=== PATIENT | male | born 1950 | race Two or more races ===

== ENCOUNTER 2016-10-27 03:20 | Inpatient (IN) | payer MEDICARE, OTHER ==
[2016-10-27 03:56] VITALS: BMI 29.2
[2016-10-27 04:38] LABS: BASOPHIL 0.8 % (0-2.0); EOSINOPHIL 3.1 % (0-4.5); MCH 28.9 pg (25.7-33.7); MCHC 31.1 g/dl (32.0-35.9); MEAN CELL VOLUME 93.1 fl (80-96); MEAN PLT VOLUME 8.5 fl (7.5-11.1); NEUTROPHILS 81.4 % (42.8-82.8); PLATELET COUNT 234 K/MM3 (134-434); RDW 18.3 % (11.9-15.9); WHITE BLOOD COUNT 10.2 K/mm3 (4.0-10.0)
[2016-10-27 04:59] LABS: INR 1.28 (0.82-1.09); PROTHROMBIN TIME (PATIENT) 14.1 SEC (9.98-11.88)
[2016-10-27 05:02] LABS: ACTIVATED PTT 44.8 SECONDS (26.9-34.4)
[2016-10-27 05:05] LABS: CALCIUM 8.3 mg/dL (8.5-10.1); CREATININE 6.6 mg/dL (0.7-1.3)
[2016-10-27 05:15] LABS: TROPONIN I 0.02 ng/ml (0.00-0.05)
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
[2016-10-27] MEDS ORDERED: OXYCODONE/APAP 5/325MG COMBO TABLET PO ONE ×2 (06:04→06:30)
[2016-10-27] MEDS ORDERED: OXYCODONE/APAP 5/325MG COMBO TABLET ONE (06:22)
--- NOTE | 2016-10-27 07:25 | PDOC ---
*Physical Exam - Vital Signs Last Vital Signs Temp Pulse Resp BP Pulse Ox 98.1 F 72 18 161/73 97 10/27/16 06:34 10/27/16 06:34 10/27/16 06:34 10/27/16 06:34 10/27/16 06:34 ED Treatment Course - LABORATORY CBC & Chemistry Diagram: 10/27/16 04:19 10/27/16 04:19 - ADDITIONAL ORDERS Additional order review: Laboratory Results 10/27/16 10/27/16 10/27/16 04:19 04:15 04:15 INR 1.28 H D PTT (Actin FS) 44.8 H D Sodium 142 Potassium 5.5 H D Chloride 108 H Carbon Dioxide 24 Anion Gap 10 BUN 52 H D Creatinine 6.6 H D Random Glucose 135 H D Calcium 8.3 L Creatine Kinase 101 Troponin I 0.02 D B-Natriuretic Peptide 52261.70 H 10/27/16 04:19 RBC 3.06 L MCV 93.1 MCHC 31.1 L RDW 18.3 H MPV 8.5 Neutrophils % 81.4 Lymphocytes % 6.7 L Monocytes % 8.0 Eosinophils % 3.1 D Basophils % 0.8 - Medications Given in the ED: ED Medications Discontinued Medications Generic Name Dose Route Start Last Admin Trade Name Freq PRN Reason Stop Dose Admin Oxycodone/Acetaminophen 1 combo 10/27/16 06:04 10/27/16 06:29 Percocet 5/325 - PO 10/27/16 06:05 1 combo ONCE ONE Administration Oxycodone/Acetaminophen 1 combo 10/27/16 06:30 10/27/16 06:30 Percocet 5/325 - PO 10/27/16 06:31 1 combo NOW ONE Administration Medical Decision Making - Medical Decision Making 10/27/16 07:24 Signout received from SHEYLA Brenner. Briefly, this is a 66 year old male with a history of ESRD Tue/Shanell/Sat, s/p recent left hip surgery at [facility] (he is unable to provide any details, but there is a healing incision over the left hip which appears older than one week). He states that he was discharged to [facility] and then sent home. He is now unable to walk because of pain. In addition, he missed HD yesterday because he is unable to walk. -K is 5.5 -BUN is 52 -There are no EKG changes The patient is unable to stand after receiving 2 oxycodone tabs. CXR: No change from prior. Discussed with case management; will obtain PT evaluation for possible dc to [facility]. Discussed with Dr. Campos who will dialyze the patient today if needs admission. 10/27/16 12:08 Patient evaluated by PT and is unable to stand or ambulate. Will obtain hip xray. Surgical records and discharge information requested from [facility]. Accepted by hospitalist. *DC/Admit/Observation/Transfer Diagnosis at time of Disposition: Pain of left hip, Unable to walk, Hyperkalemia, diminished renal excretion, ESRD (end stage renal disease) on dialysis - Discharge Dispostion Condition at time of disposition: Fair Admit: Yes
--- NOTE | 2016-10-27 09:10 | EKG ---
Test Reason : Blood Pressure : / mmHG Vent. Rate : 070 BPM Atrial Rate : 068 BPM P-R Int : 000 ms QRS Dur : 156 ms QT Int : 450 ms P-R-T Axes : 000 025 -10 degrees QTc Int : 486 ms Ventricular-paced rhythm Biventricular pacemaker detected ABNORMAL ECG WHEN COMPARED WITH ECG OF 10-OCT-2016 13:20, PREMATURE VENTRICULAR COMPLEXES ARE NO LONGER PRESENT VENT. RATE HAS DECREASED BY 20 BPM Confirmed by BISHOP FLANNERY, PETRA ([id number]) on 10/27/2016 9:10:49 AM Referred By: Confirmed By:PETRA ALAS MD
[2016-10-27] MEDS ORDERED: EPOETIN ALFA 2,000 UNITS/1 ML VIAL IVPUSH ONE (12:49)
--- NOTE | 2016-10-27 12:59 | CONSULT ---
Consult Consult Specialty:: Nephrology Reason for Consultation:: ESRD - History of Present Illness Chief Complaint: left hip pain History of Present Illness: Pt is a 66 year old male with pmhx of ESRD, CAD, HTN, narcotic dependence, and recent left hip surgery who presents to the ER with left hip pain. He says that he signed out of an outside facility as his pain was not controlled. He missed his HD on Thursday. He denies shortness of breath or palpitations. He denies fevers or chills. He generally is not compliant with medications or dialysis therapy. He was unable to walk to physical therapy and will be admitted for inability to ambulate. He was also found to be hyperkalemic. - History Source History Provided By: Patient, Medical Record - Past Medical History MOBILE TESTER: Yes: CVA Cardio/Vascular: Yes: AFIB (paroxysmal), CAD (CABG, PCI/KAT), CHF, Deep Vein Thrombosis, HTN, Hyperlipdemia Renal/: Yes: Renal Failure, Hemodialysis Psych: Yes: Anxiety Endocrine: Yes: Diabetes Mellitus - Past Surgical History Past Surgical History: Yes: AICD, Amputation (right 3rd finger), CABG (3v CABG and mitral ring 2009 (GUADALUPE->LAD, SVG->LPL, SVG->D1 jump D2.), Stent - Alcohol/Substance Use Hx Alcohol Use: No History of Substance Use: reports: Prescription - Smoking History Smoking history: Never smoked Have you smoked in the past 12 months: No Aproximately how many cigarettes per day: 0 If you are a former smoker, when did you quit?: 2013 - Social History Usual Living Arrangement: With Spouse ADL: Independent History of Recent Travel: No Home Medications - Allergies Allergies/Adverse Reactions: Allergies Allergy/AdvReac Type Severity Reaction Status Date / Time No Known Drug Allergies Allergy Verified 10/10/16 11:49 - Home Medications Home Medications: Ambulatory Orders Aspirin [ASA -] 81 mg PO DAILY tab.chew 09/03/16 Atorvastatin Ca [Lipitor] 20 mg PO HS tablet 09/03/16 Isosorbide Mononitrate [Imdur -] 30 mg PO DAILY tab.sr.24h 09/03/16 Carvedilol [Coreg -] 12.5 mg PO BID #60 tablet 09/20/16 Gabapentin [Neurontin -] 100 mg PO DAILY capsule 12/10/16 Pantoprazole Sodium [Protonix -] 40 mg PO BID tablet.ec 09/20/16 Sevelamer Carbonate [Renvela -] 800 mg PO TIDCM tab 09/20/16 Tamsulosin HCl [Flomax -] 0.4 mg PO DAILY@0830 cap.er.24h 09/20/16 Warfarin Na [Coumadin -] 5 mg PO DAILY@1800 #60 tablet 09/20/16 Tramadol HCl [Ultram -] 50 mg PO Q6H PRN #20 tablet MDD 4 09/26/16 Family Disease History - Family Disease History Family Disease History: Diabetes: Brother, Heart Disease: Brother, Other: Father (Stroke) Review of Systems - Review of Systems Constitutional: reports: Malaise Eyes: reports: No Symptoms HENT: reports: No Symptoms Neck: reports: No Symptoms Cardiovascular: reports: No Symptoms Respiratory: reports: No Symptoms Gastrointestinal: reports: No Symptoms Musculoskeletal: reports: Joint Pain Neurological: reports: No Symptoms Hematology/Lymphatic: reports: No Symptoms Psychiatric: reports: No Symptoms Physical Exam Vital Signs: Vital Signs Temperature 98.1 F 10/27/16 06:34 Pulse Rate 64 10/27/16 11:16 Respiratory Rate 18 10/27/16 11:16 Blood Pressure 152/79 10/27/16 11:16 O2 Sat by Pulse Oximetry (%) 100 10/27/16 11:16 Constitutional: Yes: Calm Eyes: Yes: Conjunctiva Clear HENT: Yes: Atraumatic Cardiovascular: Yes: S1, S2 Respiratory: Yes: CTA Bilaterally Gastrointestinal: Yes: Normal Bowel Sounds, Soft Musculoskeletal: Yes: Other (left hip pain, incision appears clean) Edema: Yes Edema: LLE: Trace, RLE: Trace Neurological: Yes: Oriented Psychiatric: Yes: Oriented Imaging - Results Chest X-ray: Report Reviewed Problem List - Problems (1) Hip pain, left Code(s): M25.552 - PAIN IN LEFT HIP (2) Hyperkalemia, diminished renal excretion Code(s): E87.5 - HYPERKALEMIA (3) BPH (benign prostatic hypertrophy) Code(s): N40.0 - BENIGN PROSTATIC HYPERPLASIA WITHOUT LOWER URINRY TRACT SYMP (4) ESRD (end stage renal disease) on dialysis Code(s): N18.6 - END STAGE RENAL DISEASE Z99.2 - DEPENDENCE ON RENAL DIALYSIS (5) Anemia Code(s): D64.9 - ANEMIA, UNSPECIFIED Qualifiers: Assessment/Plan Current Medications Generic Name Dose Route Start Last Admin Trade Name Mary PRN Reason Stop Dose Admin Epoetin Devin 7,000 units 10/27/16 12:49 Epogen - IVPUSH 10/27/16 12:50 ONCE ONE Impression 1. ESRD 2. CAD 3. HTN 4. narcotic dependence 5. non compliance 6. pleural effusions 7. anemia 8. hip pain - s/p repair 9. DVT 10. hx GI bleed Plan - will arrange for urgent HD today - resume epogen for anemia - resume home meds - monitor bp - will need rehat/pt - discussed with medical team - will follow Dr Campos
--- NOTE | 2016-10-27 13:35 | HP ---
PCP: Gregory Dumont CHIEF COMPLAINT: Left hip pain HISTORY OF PRESENT ILLNESS: This is a 66-year-old man who presented to the ER this morning complaining of left hip pain. He says that he fell at home about one week ago and broke his left hip. He was admitted to [facility] where he underwent surgery. From the hospital, he was discharged to rehab at [facility], but he signed himself out when he was told he had to walk. He says he has been having pain in the left hip and has not been able to walk since the surgery. He did not go to HD on October 25. As per his , he has been walking at home. PAST MEDICAL HISTORY ESRD on HD // CAD Hyperlipidemia Type 2 diabetes mellitus Chronic systolic heart failure Paroxysmal atrial fibrillation Peripheral artery disease Right arm DVT CVA Anemia BPH PAST SURGICAL HISTORY CABG Cardiac stent AICD Left femur fracture repair Amputation of right 3rd finger AV fistula Allergies No Known Drug Allergies Allergy (Verified 10/10/16 11:49) HOME MEDICATIONS 3 Medication Instructions Recorded Aspirin [ASA -] 81 mg PO DAILY tab.chew 09/03/16 Atorvastatin Ca [Lipitor] 20 mg PO HS tablet 09/03/16 Isosorbide Mononitrate [Imdur -] 30 mg PO DAILY tab.sr.24h 09/03/16 Carvedilol [Coreg -] 12.5 mg PO BID #60 tablet 09/20/16 Gabapentin [Neurontin -] 100 mg PO DAILY capsule 09/20/16 Pantoprazole Sodium [Protonix -] 40 mg PO BID tablet.ec 09/20/16 Sevelamer Carbonate [Renvela -] 800 mg PO TIDCM tab 09/20/16 Tamsulosin HCl [Flomax -] 0.4 mg PO DAILY@0830 cap.er.24h 09/20/16 Warfarin Na [Coumadin -] 5 mg PO DAILY@1800 #60 tablet 09/20/16 Tramadol HCl [Ultram -] 50 mg PO Q6H PRN #20 tablet MDD 4 09/26/16 Social History: Smoking: Quit in 2013 Alcohol: None Drugs: None Recent Travel: No Family History Father - CVA Brother - DM, CAD REVIEW OF SYSTEMS CONSTITUTIONAL: Absent: fever, chills, diaphoresis, generalized weakness, malaise, loss of appetite, weight change HEENT: Absent: rhinorrhea, nasal congestion, throat pain, throat swelling, difficulty swallowing, mouth swelling, ear pain, eye pain, visual changes CARDIOVASCULAR: Absent: chest pain, syncope, palpitations, lightheadedness, peripheral edema RESPIRATORY: Absent: cough, shortness of breath, dyspnea with exertion, orthopnea, wheezing, stridor, hemoptysis GASTROINTESTINAL: Absent: abdominal pain, abdominal distension, nausea, vomiting , diarrhea, constipation, melena, hematochezia GENITOURINARY: Absent: dysuria, frequency, urgency, hesitancy, hematuria, flank pain MUSCULOSKELETAL: Present: left hip pain. Absent: back pain, neck pain SKIN: Absent: rash, itching, pallor HEMATOLOGIC/IMMUNOLOGIC: Absent: easy bleeding, easy bruising, lymphadenopathy, frequent infections ENDOCRINE: Absent: unexplained weight gain, unexplained weight loss, heat intolerance, cold intolerance NEUROLOGIC: Absent: headache, focal weakness, paresthesias, dizziness, seizure, mental status changes, bladder or bowel incontinence PSYCHIATRIC: Absent: anxiety, depression, suicidal or homicidal ideation, hallucinations. PHYSICAL EXAMINATION Vital Signs Period Temp Pulse Resp BP Sys/Hinds Pulse Ox Last 24 Hr 97.7 F-98.1 F 64-89 18-20 152-179/73-86 97-100 GENERAL: Awake, alert, and fully oriented, in no acute distress. HEAD: Normal with no signs of trauma. EYES: Pupils equal, round and reactive to light, extraocular movements intact, sclerae anicteric, conjunctivae clear. EARS, NOSE, THROAT: Ears normal, nares patent, oropharynx clear without exudates. Moist mucous membranes. NECK: Normal range of motion, supple without lymphadenopathy, JVD, or masses. LUNGS: Breath sounds equal, clear to auscultation bilaterally. No wheezes, and no crackles. No accessory muscle use. HEART: Regular rate and rhythm, normal S1 and S2 without murmur, rub or gallop. ABDOMEN: Soft, nontender, not distended, normoactive bowel sounds, no guarding, no rebound, no masses. No hepatomegaly or splenomegaly. MUSCULOSKELETAL: Decreased ROM left hip. Swelling anterior to left hip incision. No CVA tenderness. UPPER EXTREMITIES: 2+ pulses, warm, well-perfused. No cyanosis. No clubbing. Cap refill <2 seconds. No peripheral edema. LOWER EXTREMITIES: 1+ pulses, warm, well-perfused. No calf tenderness. No peripheral edema. NEUROLOGICAL: Cranial nerves II-XII intact. Normal speech. Unable to ambulate. PSYCHIATRIC: Cooperative. Good eye contact. Appropriate mood and affect. SKIN: Warm, dry, normal turgor, no rashes or lesions noted. Laboratory Tests 10/27/16 10/27/16 10/27/16 04:15 04:15 04:19 WBC 10.2 H D RBC 3.06 L Hgb 8.9 L Hct 28.5 L MCV 93.1 MCHC 31.1 L RDW 18.3 H Plt Count 234 D MPV 8.5 Neutrophils % 81.4 Lymphocytes % 6.7 L Monocytes % 8.0 Eosinophils % 3.1 D Basophils % 0.8 INR 1.28 H D PTT (Actin FS) 44.8 H D Sodium Potassium Chloride Carbon Dioxide Anion Gap BUN Creatinine Random Glucose Calcium Creatine Kinase 101 Troponin I 0.02 D B-Natriuretic Peptide 32887.70 H 10/27/16 04:19 WBC RBC Hgb Hct MCV MCHC RDW Plt Count MPV Neutrophils % Lymphocytes % Monocytes % Eosinophils % Basophils % INR PTT (Actin FS) Sodium 142 Potassium 5.5 H D Chloride 108 H Carbon Dioxide 24 Anion Gap 10 BUN 52 H D Creatinine 6.6 H D Random Glucose 135 H D Calcium 8.3 L Creatine Kinase Troponin I B-Natriuretic Peptide EKG: Ventricular paced at 70. Chest x-ray: Pacemaker. Right permacath. Sternotomy wires and clips. Left pleural thickening. Left lung volume loss. No change from 10/10/16. X-rays left hip/pelvis: Left hip hemiarthroplasty. Stents in left medial thigh and right medial thigh. Vascular calcifications in pelvis. Osteopenia. Questionable cortical irregularity of left inferior pubic ramus. ASSESSMENT/PLAN: This is a 66-year-old man with a history of ESRD on HD, CAD, hyperlipidemia, type 2 DM, chronic systolic heart failure, PAF, PAD, RUE DVT, CVA, anemia and BPH who came to the ER because of pain in his left hip and inability to ambulate x 1 week, since he had surgery to repair a left hip fracture. He missed his last HD session 2 days ago. He was found to have BUN 52, creatinine 6.6, potassium 5.5. He is being admitted now for further evaluation and treatment of an emergent condition. 1. Left hip pain - X-rays show hemiarthroplasty in place, ? fracture of left inferior pubic ramus - Orthopedic surgery consult - Will obtain records from [facility] 2. ESRD on HD - Last HD was 10/23 - Continue Renvela - Nephrology consult 3. CAD, history of CABG and stent - Continue aspirin, Coreg, Lipitor, Imdur 4. Hyperlipidemia - Continue Lipitor 5. Type 2 diabetes mellitus - Fingersticks with Novolog sliding scale 6. Chronic systolic heart failure - Stable 7. Paroxysmal atrial fibrillation 8. Peripheral artery disease 9. Right arm DVT - Continue Coumadin 10. History of CVA 11. Anemia secondary to CKD 12. BPH - Continue Flomax Problem List - Problem (1) History of hemiarthroplasty of left hip Code(s): Z96.642 - PRESENCE OF LEFT ARTIFICIAL HIP JOINT (2) CAD (coronary artery disease) Code(s): I25.10 - ATHSCL HEART DISEASE OF [place] CORONARY ARTERY W/O ANG PCTRS Visit type - Emergency Visit Emergency Visit: Yes ED Registration Date: 10/27/16 Care time: The patient presented to the Emergency Department on the above date and was hospitalized for further evaluation of their emergent condition. - New Patient This patient is new to me today: Yes Date on this admission: 10/27/16 - Critical Care Critical Care patient: No
[2016-10-27] MEDS ORDERED: ONDANSETRON 4 MG/2 ML VIAL IVPB PRN (13:52)
[2016-10-27] MEDS ORDERED: ACETAMINOPHEN 325 MG TABLET (FP) PO PRN (13:52)
[2016-10-27] MEDS ORDERED: EPOETIN ALFA 4,000 UNIT, EPOETIN ALFA 3,000 UNIT IVPUSH ONE (14:00)
[2016-10-27] MEDS ORDERED: hydrALAZINE HCL 10 MG TABLET PO ONE (14:20)
[2016-10-27] MEDS ORDERED: morphine CARPU-JECT 2 MG/1 ML DISP.SYRIN ONE (14:23)
[2016-10-27] MEDS: morphine CARPU-JECT 2 MG/1 ML DISP.SYRIN IVPUSH PRN (14:39)
[2016-10-27] MEDS: WARFARIN NA 5 MG TABLET (UD) PO SCH ×3 (17:51→23:03)
[2016-10-27] MEDS: SEVELAMER CARBONATE 800 MG TAB (FP) PO SCH ×2 (17:51→18:03)
[2016-10-27] MEDS: CARVEDILOL 12.5 MG TABLET (FP) PO SCH (23:02)
[2016-10-27] MEDS: ATORVASTATIN CA 20 MG TABLET (FP) PO SCH (23:02)
[2016-10-27] MEDS: PANTOPRAZOLE 40 MG TABLET (FP) PO SCH (23:02)
[2016-10-28] MEDS: morphine CARPU-JECT 2 MG/1 ML DISP.SYRIN IVPUSH PRN ×2 (01:59→06:06)
[2016-10-28] MEDS: traMADol HCL 50 MG TABLET PO PRN ×3 (03:47→18:04)
[2016-10-28 07:56] LABS: INR 1.23 (0.82-1.09); PROTHROMBIN TIME (PATIENT) 13.6 SEC (9.98-11.88)
[2016-10-28] MEDS: SEVELAMER CARBONATE 800 MG TAB (FP) PO SCH ×3 (08:05→18:05)
[2016-10-28] MEDS: TAMSULOSIN HCL 0.4 MG CAP.ER.24H (FP) PO SCH (08:05)
[2016-10-28 08:10] LABS: MCH 29.8 pg (25.7-33.7); MCHC 32.3 g/dl (32.0-35.9); MEAN CELL VOLUME 92.3 fl (80-96); MEAN PLT VOLUME 8.6 fl (7.5-11.1); PLATELET COUNT 211 K/MM3 (134-434); RDW 17.8 % (11.9-15.9)
[2016-10-28 08:19] LABS: CALCIUM 8.1 mg/dL (8.5-10.1); CREATININE 4.2 mg/dL (0.7-1.3)
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
[2016-10-28] MEDS: ISOSORBIDE MONONITRATE 30 MG TAB.SR.24H (FP) PO SCH (10:52)
[2016-10-28] MEDS: PANTOPRAZOLE 40 MG TABLET (FP) PO SCH ×2 (10:52→22:42)
[2016-10-28] MEDS: CARVEDILOL 12.5 MG TABLET (FP) PO SCH ×2 (10:53→22:42)
[2016-10-28] MEDS: GABAPENTIN 100 MG CAPSULE (FP) PO SCH (10:53)
[2016-10-28] MEDS: ASPIRIN 81 MG CHEWABLE TABLETS PO SCH (10:55)
--- NOTE | 2016-10-28 12:38 | PN ---
Progress Note, Physician History of Present Illness: Pt seen and examined at bedside. He is more awake and alert than he was yesterday. - Current Medication List Current Medications: Active Medications Acetaminophen (Tylenol -) 650 mg PO Q4H PRN PRN Reason: FEVER OR PAIN Last Admin: 10/28/16 08:04 Dose: 650 mg Aspirin (Asa -) 81 mg PO DAILY [facility] Last Admin: 10/28/16 10:55 Dose: 81 mg Atorvastatin Calcium (Lipitor -) 20 mg PO HS [facility] Last Admin: 10/27/16 23:02 Dose: 20 mg Carvedilol (Coreg -) 12.5 mg PO BID [facility] Last Admin: 10/28/16 10:53 Dose: 12.5 mg Gabapentin (Neurontin -) 100 mg PO DAILY [facility] Last Admin: 10/28/16 10:53 Dose: 100 mg Isosorbide Mononitrate (Imdur -) 30 mg PO DAILY [facility] Last Admin: 10/28/16 10:52 Dose: 30 mg Morphine Sulfate (Morphine Injection -) 1 mg IVPUSH Q4H PRN PRN Reason: SEVERE PAIN Last Admin: 10/28/16 06:06 Dose: 1 mg Ondansetron HCl (Zofran Injection) 4 mg IVPB Q6H PRN PRN Reason: NAUSEA Pantoprazole Sodium (Protonix -) 40 mg PO BID [facility] Last Admin: 10/28/16 10:52 Dose: 40 mg Sevelamer Carbonate (Renvela -) 800 mg PO TIDCM [facility] Last Admin: 10/28/16 08:05 Dose: 800 mg Silver Sulfadiazine (Silvadene -) 1 applic TP DAILY [facility] Tamsulosin HCl (Flomax -) 0.4 mg PO DAILY@0830 [facility] Last Admin: 10/28/16 08:05 Dose: 0.4 mg Tramadol HCl (Ultram -) 50 mg PO Q6H PRN PRN Reason: PAIN Last Admin: 10/28/16 10:52 Dose: 50 mg Warfarin Sodium (Coumadin -) 5 mg PO DAILY@1800 [facility] Last Admin: 10/27/16 23:03 Dose: 5 mg - Objective Vital Signs: Vital Signs Temperature 98.7 F 10/28/16 02:00 Pulse Rate 62 10/28/16 02:00 Respiratory Rate 22 10/28/16 02:00 Blood Pressure 131/67 10/28/16 02:00 O2 Sat by Pulse Oximetry (%) 100 10/27/16 11:16 Constitutional: Yes: Calm Eyes: Yes: Conjunctiva Clear HENT: Yes: Atraumatic Neck: Yes: Supple Cardiovascular: Yes: S1, S2 Respiratory: Yes: CTA Bilaterally Gastrointestinal: Yes: Soft Genitourinary: Yes: Incontinence Musculoskeletal: Yes: Other (hip pain) Edema: No Neurological: Yes: Oriented Psychiatric: Yes: Oriented Labs: CBC, BMP 10/28/16 06:25 10/28/16 06:25 INR, PTT INR 1.23 (0.82-1.09) H 10/28/16 06:25 Problem List - Problems (1) Hip pain, left Code(s): M25.552 - PAIN IN LEFT HIP (2) Hyperkalemia, diminished renal excretion Code(s): E87.5 - HYPERKALEMIA (3) BPH (benign prostatic hypertrophy) Code(s): N40.0 - BENIGN PROSTATIC HYPERPLASIA WITHOUT LOWER URINRY TRACT SYMP (4) ESRD (end stage renal disease) on dialysis Code(s): N18.6 - END STAGE RENAL DISEASE Z99.2 - DEPENDENCE ON RENAL DIALYSIS (5) Anemia Code(s): D64.9 - ANEMIA, UNSPECIFIED Qualifiers: Assessment/Plan Current Medications Generic Name Dose Route Start Last Admin Trade Name Freq PRN Reason Stop Dose Admin Acetaminophen 650 mg 10/27/16 13:52 10/28/16 08:04 Tylenol - PO 650 mg Q4H PRN Administration FEVER OR PAIN Aspirin 81 mg 10/28/16 10:00 10/28/16 10:55 Asa - PO 81 mg DAILY [facility] Administration Atorvastatin Calcium 20 mg 10/27/16 22:00 10/27/16 23:02 Lipitor - PO 20 mg HS [facility] Administration Carvedilol 12.5 mg 10/27/16 22:00 10/28/16 10:53 Coreg - PO 12.5 mg BID [facility] Administration Gabapentin 100 mg 10/28/16 10:00 10/28/16 10:53 Neurontin - PO 100 mg DAILY [facility] Administration Isosorbide Mononitrate 30 mg 10/28/16 10:00 10/28/16 10:52 Imdur - PO 30 mg DAILY [facility] Administration Morphine Sulfate 1 mg 10/27/16 13:52 10/28/16 06:06 Morphine Injection - IVPUSH 1 mg Q4H PRN Administration SEVERE PAIN Ondansetron HCl 4 mg 10/27/16 13:52 Zofran Injection IVPB Q6H PRN NAUSEA Pantoprazole Sodium 40 mg 10/27/16 22:00 10/28/16 10:52 Protonix - PO 40 mg BID [facility] Administration Sevelamer Carbonate 800 mg 10/27/16 17:30 10/28/16 08:05 Renvela - PO 800 mg TIDCM [facility] Administration Silver Sulfadiazine 1 applic 10/28/16 10:00 Silvadene - TP DAILY [facility] Tamsulosin HCl 0.4 mg 10/28/16 08:30 10/28/16 08:05 Flomax - PO 0.4 mg DAILY@0830 [facility] Administration Tramadol HCl 50 mg 10/27/16 13:49 10/28/16 10:52 Ultram - PO 50 mg Q6H PRN Administration PAIN Warfarin Sodium 5 mg 10/27/16 18:00 10/27/16 23:03 Coumadin - PO 5 mg DAILY@1800 [facility] Administration Impression 1. ESRD 2. CAD 3. HTN 4. narcotic dependence 5. non compliance 6. pleural effusions 7. anemia 8. hip pain - s/p repair 9. DVT 10. hx GI bleed Plan - will arrange for HD in am - cont epogen for anemia - ortho follow up - resume home meds - monitor bp - will need rehat/pt - compliance remains a problem - will follow Dr Campos
[2016-10-28] MEDS: SILVER SULFADIAZINE 1% TOP CREAM 50 GM JAR TP SCH (12:49)
--- NOTE | 2016-10-28 13:37 | CONS ---
DATE OF CONSULTATION: HISTORY: The patient is a 66-year-old male end-stage renal dialysis patient well known to me. I did a left hemiarthroplasty for displaced femoral neck fracture at [facility] approximately 2 weeks ago. The patient did very well and went to a assisted for rehabilitation. The patient signed himself out AMA as he did not want to stay there and just wanted to be home in bed and was not interested in rehabilitation. The patient presented back to the hospital complaining of some hip pain. X-ray by report from the radiologist is suspicious of possible left inferior pubic ramus fracture. PHYSICAL EXAMINATION: Skin: His incision is well healed. No drainage. Extremities: Calf has no erythema, no swelling. Calf is soft, nontender, neurovascularly intact. Good motion hip, knee, ankles, and toes. Musculoskeletal: No point tenderness over his pubis, ilium, ischium, SI joint, sacrum, greater trochanter with good motion hip, knee, ankles, and toes. Neurovascularly intact. DIAGNOSTIC DATA: X-rays, which I reviewed show well-seated left cemented hemiarthroplasty. I do not appreciate the pubic ramus fracture that the radiologist is reading. IMPRESSION: Cemented left hemiarthroplasty, questionable pelvic ramus fracture, although I am less suspicious of that. The radiologist is suspicious of that. PLAN: In either case whether the patient has a pubic ramus fracture or not, the treatment is the same. The patient can be weightbearing as tolerated with hip precautions. No acute pathology is going on at this time. The patient can be discharged from the hospital once medically cleared and his dialysis is arranged as an outpatient. ALEJANDRA DAVE M.D. [id number]
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
[2016-10-28] MEDS: WARFARIN NA 5 MG TABLET (UD) PO SCH (18:04)
[2016-10-28] MEDS: ATORVASTATIN CA 20 MG TABLET (FP) PO SCH (22:42)
[2016-10-29] MEDS: traMADol HCL 50 MG TABLET PO PRN (03:53)
[2016-10-29] MEDS: SEVELAMER CARBONATE 800 MG TAB (FP) PO SCH ×2 (08:09→11:14)
[2016-10-29] MEDS: TAMSULOSIN HCL 0.4 MG CAP.ER.24H (FP) PO SCH (08:10)
[2016-10-29] MEDS ORDERED: EPOETIN ALFA 2,000 UNITS/1 ML VIAL IVPUSH ONE (09:00)
[2016-10-29] MEDS: ASPIRIN 81 MG CHEWABLE TABLETS PO SCH (10:46)
[2016-10-29] MEDS: SILVER SULFADIAZINE 1% TOP CREAM 50 GM JAR TP SCH (10:46)
[2016-10-29] MEDS: ISOSORBIDE MONONITRATE 30 MG TAB.SR.24H (FP) PO SCH (10:46)
[2016-10-29] MEDS: PANTOPRAZOLE 40 MG TABLET (FP) PO SCH (10:46)
[2016-10-29] MEDS: CARVEDILOL 12.5 MG TABLET (FP) PO SCH (10:46)
[2016-10-29] MEDS: GABAPENTIN 100 MG CAPSULE (FP) PO SCH (10:46)
[2016-10-29 10:54] VITALS: BP 152/62; PULSE 61
--- NOTE | 2016-10-29 12:07 | PN ---
Progress Note, Physician History of Present Illness: Pt seen and examined at bedside. He says he wants to go home. He is awake and alert. - Current Medication List Current Medications: Active Medications Acetaminophen (Tylenol -) 650 mg PO Q4H PRN PRN Reason: FEVER OR PAIN Last Admin: 10/28/16 08:04 Dose: 650 mg Aspirin (Asa -) 81 mg PO DAILY [facility] Last Admin: 10/29/16 10:46 Dose: 81 mg Atorvastatin Calcium (Lipitor -) 20 mg PO HS [facility] Last Admin: 10/28/16 22:42 Dose: 20 mg Carvedilol (Coreg -) 12.5 mg PO BID [facility] Last Admin: 10/29/16 10:46 Dose: 12.5 mg Gabapentin (Neurontin -) 100 mg PO DAILY [facility] Last Admin: 10/29/16 10:46 Dose: 100 mg Isosorbide Mononitrate (Imdur -) 30 mg PO DAILY [facility] Last Admin: 10/29/16 10:46 Dose: 30 mg Pantoprazole Sodium (Protonix -) 40 mg PO BID [facility] Last Admin: 10/29/16 10:46 Dose: 40 mg Sevelamer Carbonate (Renvela -) 800 mg PO TIDCM [facility] Last Admin: 10/29/16 11:14 Dose: 800 mg Silver Sulfadiazine (Silvadene -) 1 applic TP DAILY [facility] Last Admin: 10/29/16 10:46 Dose: 1 applic Tamsulosin HCl (Flomax -) 0.4 mg PO DAILY@0830 [facility] Last Admin: 10/29/16 08:10 Dose: Not Given Tramadol HCl (Ultram -) 50 mg PO Q6H PRN PRN Reason: PAIN Last Admin: 10/29/16 03:53 Dose: 50 mg Warfarin Sodium (Coumadin -) 5 mg PO DAILY@1800 [facility] Last Admin: 10/28/16 18:04 Dose: 5 mg - Objective Vital Signs: Vital Signs Temperature 97.5 F L 10/29/16 06:45 Pulse Rate 61 10/29/16 10:10 Respiratory Rate 18 10/29/16 10:10 Blood Pressure 152/62 10/29/16 10:10 O2 Sat by Pulse Oximetry (%) 96 10/28/16 21:00 Constitutional: Yes: Calm Eyes: Yes: Conjunctiva Clear HENT: Yes: Atraumatic Cardiovascular: Yes: S1, S2 Respiratory: Yes: CTA Bilaterally Gastrointestinal: Yes: Soft Genitourinary: Yes: WNL Musculoskeletal: Yes: Other (hip pain) Edema: Yes Edema: LUE: 1+, RUE: 1+ Neurological: Yes: Oriented Psychiatric: Yes: Oriented Labs: CBC, BMP 10/28/16 06:25 10/28/16 06:25 INR, PTT INR 1.23 (0.82-1.09) H 10/28/16 06:25 Problem List - Problems (1) Hip pain, left Code(s): M25.552 - PAIN IN LEFT HIP (2) Hyperkalemia, diminished renal excretion Code(s): E87.5 - HYPERKALEMIA (3) BPH (benign prostatic hypertrophy) Code(s): N40.0 - BENIGN PROSTATIC HYPERPLASIA WITHOUT LOWER URINRY TRACT SYMP (4) ESRD (end stage renal disease) on dialysis Code(s): N18.6 - END STAGE RENAL DISEASE Z99.2 - DEPENDENCE ON RENAL DIALYSIS (5) Anemia Code(s): D64.9 - ANEMIA, UNSPECIFIED Qualifiers: Assessment/Plan Current Medications Generic Name Dose Route Start Last Admin Trade Name Freq PRN Reason Stop Dose Admin Acetaminophen 650 mg 10/27/16 13:52 10/28/16 08:04 Tylenol - PO 650 mg Q4H PRN Administration FEVER OR PAIN Aspirin 81 mg 10/28/16 10:00 10/29/16 10:46 Asa - PO 81 mg DAILY [facility] Administration Atorvastatin Calcium 20 mg 10/27/16 22:00 10/28/16 22:42 Lipitor - PO 20 mg HS [facility] Administration Carvedilol 12.5 mg 10/27/16 22:00 10/29/16 10:46 Coreg - PO 12.5 mg BID [facility] Administration Gabapentin 100 mg 10/28/16 10:00 10/29/16 10:46 Neurontin - PO 100 mg DAILY [facility] Administration Isosorbide Mononitrate 30 mg 10/28/16 10:00 10/29/16 10:46 Imdur - PO 30 mg DAILY [facility] Administration Pantoprazole Sodium 40 mg 10/27/16 22:00 10/29/16 10:46 Protonix - PO 40 mg BID [facility] Administration Sevelamer Carbonate 800 mg 10/27/16 17:30 10/29/16 11:14 Renvela - PO 800 mg TIDCM [facility] Administration Silver Sulfadiazine 1 applic 10/28/16 10:00 10/29/16 10:46 Silvadene - TP 1 applic DAILY [facility] Administration Tamsulosin HCl 0.4 mg 10/28/16 08:30 10/29/16 08:10 Flomax - PO Not Given DAILY@0830 [facility] Tramadol HCl 50 mg 10/27/16 13:49 10/29/16 03:53 Ultram - PO 50 mg Q6H PRN Administration PAIN Warfarin Sodium 5 mg 10/27/16 18:00 10/28/16 18:04 Coumadin - PO 5 mg DAILY@1800 [facility] Administration Impression 1. ESRD 2. CAD 3. HTN 4. narcotic dependence 5. non compliance 6. pleural effusions 7. anemia 8. hip pain - s/p repair 9. DVT 10. hx GI bleed Plan - pt tolerated HD today - discussed compliance with him at length - cont current meds - cont epogen for anemia - monitor bp - will need rehat/pt - compliance remains a problem - will follow Dr Campos
[2016-10-29 13:45] VITALS: TEMP 98.1
[2016-10-30 00:06] LABS: HEP B SURFACE AB Non Reactive (.)
--- NOTE | 2016-11-07 19:13 | DS ---
Physical Exam: SUBJECTIVE: Patient seen and examined. OBJECTIVE: Vital Signs Temperature 98.1 F 10/29/16 10:00 Pulse Rate 61 10/29/16 10:10 Respiratory Rate 18 10/29/16 10:10 Blood Pressure 152/62 10/29/16 10:10 O2 Sat by Pulse Oximetry (%) 96 10/29/16 09:00 PHYSICAL EXAM GENERAL: The patient is awake, alert, and fully oriented, in no acute distress. Cachectic. HEAD: Normal with no signs of trauma. EYES: PERRL, extraocular movements intact, sclera anicteric, conjunctiva clear. No ptosis. LUNGS: CTA, no wheezes, no crackles, no accessory muscle use; portacath HEART: Irregular, S1, S2 without murmur, rub or gallop. ABDOMEN: Soft, nontender, nondistended, normoactive bowel sounds, no guarding, no rebound. EXTREMITIES: LLE is slightly larger than RLE, +calf tenderness; left hip incision c/d/i, edges well approximated, no signs of infection NEUROLOGICAL: Cranial nerves II through XII grossly intact. Normal speech, gait not observed. SKIN: 4cm x 4cm black scab on dorsum of right hand, no erythema, no tenderness, no s/s of infection CBCD WBC 6.0 K/mm3 (4.0-10.0) D 10/28/16 06:25 RBC 2.69 M/mm3 (4.00-5.60) L 10/28/16 06:25 Hgb 8.0 GM/dL (11.7-16.9) L D 10/28/16 06:25 Hct 24.9 % (35.4-49) L 10/28/16 06:25 MCV 92.3 fl (80-96) 10/28/16 06:25 MCHC 32.3 g/dl (32.0-35.9) 10/28/16 06:25 RDW 17.8 % (11.9-15.9) H 10/28/16 06:25 Plt Count 211 K/MM3 (134-434) 10/28/16 06:25 MPV 8.6 fl (7.5-11.1) 10/28/16 06:25 CMP Sodium 140 mmol/L (136-145) 10/28/16 06:25 Potassium 4.6 mmol/L (3.5-5.1) 10/28/16 06:25 Chloride 103 mmol/L (98-107) 10/28/16 06:25 Carbon Dioxide 29 mmol/L (21-32) D 10/28/16 06:25 Anion Gap 8 (8-16) 10/28/16 06:25 BUN 27 mg/dL (7-18) H D 10/28/16 06:25 Creatinine 4.2 mg/dL (0.7-1.3) H D 10/28/16 06:25 Calcium 8.1 mg/dL (8.5-10.1) L 10/28/16 06:25 HOSPITAL COURSE: Date of Admission:10/27/16 Signed out AMA: 10/29/16 66 year-old man with a PMH of ESRD on HD //, CAD s/p CABG s/p stent s/p PPM/AICD, chronic systolic heart failure, PAF, h/o DVT, PAD, CVA, anemia, and BPH who is admitted for left hip pain s/p left hip fracture repair. Left hip/leg pain s/p left hip hemiarthroplasty --xray shows left hip hemiarthroplasty and questionable inferior pubic ramus nondisplaced fracture --Dr. Galeano saw and evaluated the patient; he performed the surgery 2 weeks ago; he reviewed the xray and no surgical intervention indicated; incision looks good, patient needs physical therapy --US LLE negative for DVT ESRD on HD --HD today --continued Renvela --renal following Burn to right hand --Silvadene daily CAD s/p CABG s/p PPM/AICD --ECG shows paced rhythm @ 70 --continued ASA, carvedilol, Lipitor, Imdur Hyperlipidemia - Continued Lipitor Type 2 diabetes mellitus - Fingersticks with Novolog sliding scale Chronic systolic heart failure - Stable Paroxysmal atrial fibrillation --rate is well-controlled --INR subtherapeutic @ 1.23, patient is refusing coumadin h/o right right arm DVT --continue coumadin Peripheral artery disease --stable Anemia secondary to CKD --stable Minutes to complete discharge: 35 Discharge Summary Reason For Visit: HIP PAIN LEFT,UMABLE TO AMBULATE,HYPE Current Active Problems CHF exacerbation (Acute) Chest pain (Acute) DVT prophylaxis (Acute) Hip pain, left (Acute) Hyperkalemia, diminished renal excretion (Acute) Subtherapeutic international normalized ratio (INR) (Acute) Unable to ambulate (Acute) Anemia (Chronic) BPH (benign prostatic hypertrophy) (Chronic) Chronic pain disorder (Chronic) Chronic systolic heart failure (Chronic) Coronary artery disease (Chronic) DVT (deep venous thrombosis) (Chronic) Dependency on pain medication (Chronic) ESRD (end stage renal disease) on dialysis (Chronic) History of hemiarthroplasty of left hip (Chronic) Hx of CABG (Chronic) Hyperlipidemia (Chronic) Hypertension (Chronic) ICD (implantable cardioverter-defibrillator) in place (Chronic) Noncompliance of patient with renal dialysis (Chronic) PAD (peripheral artery disease) (Chronic) PAF (paroxysmal atrial fibrillation) (Chronic) PVD (peripheral vascular disease) (Chronic) S/P mitral valve repair (Chronic) Status post coronary artery stent placement (Chronic) Status post percutaneous transluminal coronary angioplasty (Chronic) Type 2 diabetes mellitus (Chronic) Condition: Guarded - Instructions Referrals: STAFF,NOT ON [Primary Care Provider] - Disposition: AGAINST MEDICAL ADVICE - Home Medications Comprehensive Discharge Medication List: Ambulatory Orders Aspirin [ASA -] 81 mg PO DAILY tab.chew 09/03/16 Atorvastatin Ca [Lipitor] 20 mg PO HS tablet 09/03/16 Isosorbide Mononitrate [Imdur -] 30 mg PO DAILY tab.sr.24h 09/03/16 Carvedilol [Coreg -] 12.5 mg PO BID #60 tablet 09/20/16 Gabapentin [Neurontin -] 100 mg PO DAILY capsule 09/20/16 Pantoprazole Sodium [Protonix -] 40 mg PO BID tablet.ec 09/20/16 Sevelamer Carbonate [Renvela -] 800 mg PO TIDCM tab 09/20/16 Tamsulosin HCl [Flomax -] 0.4 mg PO DAILY@0830 cap.er.24h 09/20/16 Warfarin Na [Coumadin -] 5 mg PO DAILY@1800 #60 tablet 09/20/16 Tramadol HCl [Ultram -] 50 mg PO Q6H PRN #20 tablet MDD 4 09/26/16 This patient is new to me today: No Emergency Visit: Yes ED Registration Date: 10/27/16 Care time: The patient presented to the Emergency Department on the above date and was hospitalized for further evaluation of their emergent condition. Critical Care patient: No - Discharge Referral Referred to [facility] Med [facility]C.: No
== END 2016-10-29 14:09 | disposition left against medical advice (07) | DRG 555 ==
LOC: SUPCPDRO 03:20 → JER 03:20 → JERBED 12:32 → OBSVTOIN 13:39 → J5S 16:40
PROVIDERS: ADMIT Internal Medicine; ATTEND Nurse Practitioner Acute Care
PROC: 5A1D60Z (ICD-10-PCS; principal; 2016-10-27)
DX: M25.552 Pain in left hip (principal); N18.6 End stage renal disease; I13.2 Hypertensive heart and chronic kidney disease with heart failure and with stage 5 chronic kidney disease, or end stage renal disease; I50.22 Chronic systolic (congestive) heart failure; T23.001A Burn of unspecified degree of right hand, unspecified site, initial encounter; I25.10 Atherosclerotic heart disease of native coronary artery without angina pectoris; E78.5 Hyperlipidemia, unspecified; E11.9 Type 2 diabetes mellitus without complications; I48.0 Paroxysmal atrial fibrillation; N40.0 Benign prostatic hyperplasia without lower urinary tract symptoms; I73.89 Other specified peripheral vascular diseases; D63.1 Anemia in chronic kidney disease; E87.5 Hyperkalemia; Z99.2 Dependence on renal dialysis; Z95.0 Presence of cardiac pacemaker; Z95.5 Presence of coronary angioplasty implant and graft; Z95.1 Presence of aortocoronary bypass graft; Z86.718 Personal history of other venous thrombosis and embolism; Z91.14 Patient's other noncompliance with medication regimen; Z86.73 Personal history of transient ischemic attack (TIA), and cerebral infarction without residual deficits
CPT/HCPCS: 36415; 71010-TC; 73523-TC; 80048; 82550; 83735; 83880; 84484; 85025; 85027; 85610; 85730; 86704; 86706; 86708; 86803; 86850; 86900; 86901; 87340; 93005; 93010; 93971-TC; 97116-GP; 97162-PG; 99284-25; G0378; J0885

== ENCOUNTER 2016-11-06 18:22 | Inpatient (IN) | payer MEDICARE, OTHER ==
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
[2016-11-06] MEDS ORDERED: HYDROmorphone HCL CARPU-JECT 1 MG/1 ML DISP.SYRIN IVPUSH ONE (21:07)
[2016-11-06] MEDS ORDERED: ONDANSETRON 4 MG/2 ML VIAL IVPUSH STA (21:08)
[2016-11-06 21:27] LABS: MCH 29.6 pg (25.7-33.7); MCHC 31.7 g/dl (32.0-35.9); MEAN CELL VOLUME 93.4 fl (80-96); MEAN PLT VOLUME 9.3 fl (7.5-11.1); PLATELET COUNT 155 K/MM3 (134-434); RDW 18.7 % (11.9-15.9); WHITE BLOOD COUNT 4.2 K/mm3 (4.0-10.0)
[2016-11-06 21:32] LABS: INR 1.22 (0.82-1.09); PROTHROMBIN TIME (PATIENT) 13.5 SEC (9.98-11.88)
[2016-11-06 22:06] LABS: ALBUMIN 2.5 g/dl (3.4-5.0); BILIRUBIN,TOTAL 0.4 mg/dL (0.2-1.0); CALCIUM 7.6 mg/dL (8.5-10.1); CREATININE 5.9 mg/dL (0.7-1.3); TOT PROT 6.3 g/dl (6.4-8.2)
[2016-11-06 22:10] LABS: PLATELET ESTIMATE ADEQUATE (NORMAL)
[2016-11-06] MEDS ORDERED: FUROSEMIDE 40 MG/4 ML INJECTABLE VIAL IVPUSH ONE (22:26)
[2016-11-06] MEDS ORDERED: NITROGLYCERIN 2% OINTMENT - 1GM PACKET TD ONE (22:26)
[2016-11-06 22:41] LABS: TROPONIN I 0.02 ng/ml (0.00-0.05)
--- NOTE | 2016-11-06 23:25 | MSN ---
Admitting History and Physical - Past Medical History [employer]CR[employer]ARY: Yes: CVA Cardiovascular: Yes: AFIB (paroxysmal), CAD (CABG, PCI/KAT), CHF, Deep Vein Thrombosis, HTN, Hyperlipdemia Renal/: Yes: Renal Failure, Hemodialysis Psych: Yes: Anxiety Endocrine: Yes: Diabetes Mellitus - Past Surgical History Past Surgical History: Yes: AICD, Amputation (right 3rd finger), CABG (3v CABG and mitral ring 2009 (GUADALUPE->LAD, SVG->LPL, SVG->D1 jump D2.), Stent - Smoking History Smoking history: Never smoked Have you smoked in the past 12 months: No Aproximately how many cigarettes per day: 0 If you are a former smoker, when did you quit?: 2013 - Alcohol/Substance Use Hx Alcohol Use: No History of Substance Use: reports: Prescription - Social History ADL: Independent History of Recent Travel: No Home Medications - Allergies Allergies/Adverse Reactions: Allergies Allergy/AdvReac Type Severity Reaction Status Date / Time No Known Drug Allergies Allergy Verified 11/06/16 20:08 - Home Medications Home Medications: Ambulatory Orders Aspirin [ASA -] 81 mg PO DAILY tab.chew 09/03/16 Atorvastatin Ca [Lipitor] 20 mg PO HS tablet 09/03/16 Isosorbide Mononitrate [Imdur -] 30 mg PO DAILY tab.sr.24h 09/03/16 Carvedilol [Coreg -] 12.5 mg PO BID #60 tablet 09/20/16 Gabapentin [Neurontin -] 100 mg PO DAILY capsule 09/20/16 Pantoprazole Sodium [Protonix -] 40 mg PO BID tablet.ec 09/20/16 Sevelamer Carbonate [Renvela -] 800 mg PO TIDCM tab 09/20/16 Tamsulosin HCl [Flomax -] 0.4 mg PO DAILY@0830 cap.er.24h 09/20/16 Warfarin Na [Coumadin -] 5 mg PO DAILY@1800 #60 tablet 09/20/16 Tramadol HCl [Ultram -] 50 mg PO Q6H PRN #20 tablet MDD 4 09/26/16 Family Disease History - Family Disease History Family Disease History: Diabetes: Brother, Heart Disease: Brother, Other: Father (Stroke) Physical Examination Vital Signs: Vital Signs Temperature 97.3 F L 11/06/16 20:05 Pulse Rate 64 11/06/16 20:05 Respiratory Rate 16 11/06/16 20:05 Blood Pressure 195/84 11/06/16 20:05 O2 Sat by Pulse Oximetry (%) 95 11/06/16 20:05 Labs: CBC, BMP 11/06/16 21:00 11/06/16 21:00
--- NOTE | 2016-11-07 | HP ---
[id number] y/o old man with a past medical history of ESRD (HD-,,), CAD , Hyperlipidemia, Type 2 Diabetes Mellitus, Chronic Systolic Heart Failure, Paroxysmal Atrial Fibrillation, Peripheral Artery Disease, Right Arm DVT, CVA, Anemia, BPH. PSHx of: CABG, Cardiac Stent, AICD, Left Femur Fracture Repair ( [facility], 10/2016). Who presents to the emergency department with right sided chest pain radiating to his left jaw, and SOB x 3pm this afternoon. Patient reports the pain had awoken him from sleep, and that he has been feeling weak. Patient was recently discharged 10/29/16 for Left Hip Pain, he reports having a fall recently. Patient reports last dialysis was yesterday . Patient denies fever, chills, dizziness, AP, N/V/D, constipation, dysuria. ER course was notable for: (1) Chest Xray report: Cardiomegaly, lung ceron suspicious for vascular congestion- Impression CHF (2) BNP 46,664 (3) Bun/Cr 35/5.9 Recent Travel: None PAST MEDICAL HISTORY: See HPI PAST SURGICAL HISTORY: See HPI Social History: Smoking: Never Alcohol: None Drugs: Prescription Opioids Lives with spouse Family History: Father: CVA Brother: DM, CAD Allergies No Known Drug Allergies Allergy (Verified 11/06/16 20:08) HOME MEDICATIONS: Medication Instructions Recorded Aspirin [ASA -] 81 mg PO DAILY tab.chew 09/03/16 Atorvastatin Ca [Lipitor] 20 mg PO HS tablet 09/03/16 Isosorbide Mononitrate [Imdur -] 30 mg PO DAILY tab.sr.24h 09/03/16 Carvedilol [Coreg -] 12.5 mg PO BID #60 tablet 09/20/16 Gabapentin [Neurontin -] 100 mg PO DAILY capsule 09/20/16 Pantoprazole Sodium [Protonix -] 40 mg PO BID tablet.ec 09/20/16 Sevelamer Carbonate [Renvela -] 800 mg PO TIDCM tab 09/20/16 Tamsulosin HCl [Flomax -] 0.4 mg PO DAILY@0830 cap.er.24h 09/20/16 Warfarin Na [Coumadin -] 5 mg PO DAILY@1800 #60 tablet 09/20/16 Tramadol HCl [Ultram -] 50 mg PO Q6H PRN #20 tablet MDD 4 09/26/16 REVIEW OF SYSTEMS CONSTITUTIONAL: Absent: fever, chills, diaphoresis, generalized weakness, malaise, loss of appetite, weight change HEENT: Absent: rhinorrhea, nasal congestion, throat pain, throat swelling, difficulty swallowing, mouth swelling, ear pain, eye pain, visual changes CARDIOVASCULAR: chest pain Absent: syncope, palpitations, irregular heart rate, lightheadedness, peripheral edema RESPIRATORY: Absent: cough, shortness of breath, dyspnea with exertion, orthopnea, wheezing, stridor, hemoptysis GASTROINTESTINAL: Absent: abdominal pain, abdominal distension, nausea, vomiting, diarrhea, constipation, melena, hematochezia GENITOURINARY: Absent: dysuria, frequency, urgency, hesitancy, hematuria, flank pain, genital pain MUSCULOSKELETAL: Absent: myalgia, arthralgia, joint swelling, back pain, neck pain SKIN: Absent: rash, itching, pallor HEMATOLOGIC/IMMUNOLOGIC: Absent: easy bleeding, easy bruising, lymphadenopathy, frequent infections ENDOCRINE: Absent: unexplained weight gain, unexplained weight loss, heat intolerance, cold intolerance NEUROLOGIC: Absent: headache, focal weakness or paresthesias, dizziness, unsteady gait, seizure, mental status changes, bladder or bowel incontinence PSYCHIATRIC: Absent: anxiety, depression, suicidal or homicidal ideation, hallucinations. PHYSICAL EXAMINATION GENERAL: Asleep, alert, and fully oriented, in no acute distress. HEAD: Normal with no signs of trauma. EYES: Pupils equal, round and reactive to light, extraocular movements intact, sclera anicteric, conjunctiva clear. No lid lag. EARS, NOSE, THROAT: Ears normal, nares patent, oropharynx clear without exudates. Moist mucous membranes. NECK: Normal range of motion, supple without lymphadenopathy, JVD, or masses. LUNGS: Diminished at bases. Breath sounds equal, clear to auscultation upper lobes No wheezes, and no crackles. No accessory muscle use. HEART: Irregular rate and rhythm, normal S1 and S2 without murmur, rub or gallop. ABDOMEN: Soft, nontender, not distended, normoactive bowel sounds, no guarding, no rebound, no masses. No hepatomegaly or splenomegaly. MUSCULOSKELETAL: Normal range of motion at all joints. No bony deformities or tenderness. No CVA tenderness. UPPER EXTREMITIES: 2+ pulses, warm, well-perfused. No cyanosis. No clubbing. Cap refill <2 seconds. No peripheral edema. LOWER EXTREMITIES: 2+ pulses, warm, well-perfused. No calf tenderness. No peripheral edema. NEUROLOGICAL: Cranial nerves II-XII intact. Normal speech. Gait not observed. PSYCHIATRIC: Cooperative. Good eye contact. Appropriate mood and affect. SKIN: Warm, dry, normal turgor, no rashes or healing scar with pink dermis to right dorsal hand,healed surgical scar from amputation right digit#3 noted. Laboratory Results - last 24 hr 11/06/16 11/06/16 11/06/16 20:41 20:41 20:41 WBC RBC Hgb Hct MCV MCHC RDW Plt Count MPV Neutrophils % Lymphocytes % Monocytes % Eosinophils % Band Neutrophils Differential Comment Reactive Lymphocytes Platelet Estimate Morphology Comment INR 1.22 H Sodium Potassium Chloride Carbon Dioxide Anion Gap BUN Creatinine Creat Clearance w eGFR Random Glucose Calcium Total Bilirubin AST ALT Alkaline Phosphatase Creatine Kinase 167 D Creatine Kinase Index 2.9 CK-MB (CK-2) 4.814 H CK-MB (CK-2) Rel Index Cancelled Troponin I 0.02 B-Natriuretic Peptide 30004.17 H Total Protein Albumin 11/06/16 11/06/16 11/07/16 21:00 21:00 01:30 WBC 4.2 RBC 2.98 L Hgb 8.8 L Hct 27.8 L MCV 93.4 MCHC 31.7 L RDW 18.7 H Plt Count 155 D MPV 9.3 Neutrophils % 59.0 D Lymphocytes % 23.0 D Monocytes % 14.0 H Eosinophils % 1.0 Band Neutrophils 2.0 Differential Comment Manual diff done Reactive Lymphocytes 1 D Platelet Estimate Adequate Morphology Comment Slide scanned INR Sodium 142 Potassium 5.2 H Chloride 105 Carbon Dioxide 28 Anion Gap 9 BUN 35 H D Creatinine 5.9 H D Creat Clearance w eGFR 9.61 Random Glucose 136 H Calcium 7.6 L Total Bilirubin 0.4 AST 25 ALT 13 Alkaline Phosphatase 157 H Creatine Kinase Creatine Kinase Index CK-MB (CK-2) CK-MB (CK-2) Rel Index Troponin I 0.02 B-Natriuretic Peptide Total Protein 6.3 L Albumin 2.5 L - ECG Impressions Comment:: 11/06/16 21:25 Vent. Rate: 62 bpm IMPRESSION: AV dual-paced rhythm. Biventricular pacemaker detected. - RADIOLOGY Radiology Studies Ordered: 11/07/16 00:47 EXAM: Head CT INTERPRETED BY: Dr. Shane IMPRESSION: There is an old right occipital infarct. Old right cerebellar infarct. No bleed. No visible mass. No visible acute infarct. No shift or herniation. Osseous structures are intact. EXAM: CXR INTERPRETED BY: Dr. Arce IMPRESSION: CHF ASSESSMENT/PLAN: This is a 66 y/o man with a PMHx of: ESRD (HD ,,), CAD,HLD,Type 2 DM, Chronic Systolic HF, Paroxsymal Atrial Fibrillation, Peripheral Artery Disease, Right Arm DVT, CVA, Anemia, BPH. Presented to ED with Chest Pain, SOB. Placed in Telemetry Observation for Chest Pain, ESRD for further evaluation of their emergent condition. Plan: 1. Chest Pain - r/o ACS vs Atypical - HEART Score 5 - IRIS 4 - Appreciate Cardiology Consult - Continue cardiac monitoring - EKG: AV duel paced rhythm, Biventricular pacemaker no change compared to prior study - Chest Xray- see above - CE neg x1 - Serial Enzymes - Echo done on 05/05/16 showed- LVF mildly decreased with abnormal septal motion , mildly dilated LA, RA, mod MR, severe TR, mild-mod , mild PVR, RSVP elevated 30-40mmhg, No pericardial effusion - Nitropaste, Dilaudid given in ED - Asa - NTG SL prn - Continue BB - Tramadol for pain prn 2/2 hx narcotic dependency 2. SOB - Likely secondary to Acute on Chronic HF - Lasix given in ED - Continue Lasix - Strict INOs - Daily weights - O2 3. ESRD - HD- ,, (last dialysis, yesterday 11/05 per patient) - Appreciate Nephrology Consult for HD management - Continue Renvela 4. Type 2 Diabetes Mellitus - Sub Optimal - BGMs - ISS 5. Anemia - Hgb 8.8~ baseline - Transfuse if Hgb < 7.0 6. CAD - Continue home meds 7. Paroxysmal Afib - Controlled - Continue Coumadin 8. HLD - Continue Lipitor - Monitor LFTs 9. PAD - Continue Gabapentin 10. BPH - Continue Flomax 11. CVA - hx of CVA - Fall Precautions 12. Subtherapeutic INR - Likely due to non-compliance - Will give Coumadin 7.5mg tonight - Then continue Coumadin 5mg daily - Series INR 13. F/E/N - PO fluids < 1L Restrictions - Replete lytes prn - Low Na, 1800 ADA, Renal Diet 14. DVT/PPI Prophylaxis - OOB - Continue Coumadin - PPI Code Status: Full Code Problem List - Problem (1) CHF exacerbation Code(s): I50.9 - HEART FAILURE, UNSPECIFIED (2) Chest pain Code(s): R07.9 - CHEST PAIN, UNSPECIFIED Qualifiers: Chest pain type: chest pain due to myocardial ischemia Qualified Code(s ): I20.9 - Angina pectoris, unspecified (3) ESRD (end stage renal disease) on dialysis Code(s): N18.6 - END STAGE RENAL DISEASE Z99.2 - DEPENDENCE ON RENAL DIALYSIS (4) Chronic systolic heart failure Code(s): I50.22 - CHRONIC SYSTOLIC (CONGESTIVE) HEART FAILURE (5) Type 2 diabetes mellitus Code(s): E11.9 - TYPE 2 DIABETES MELLITUS WITHOUT COMPLICATIONS Qualifiers: Diabetes mellitus complication status: with kidney complications Diabetes mellitus complication detail: with chronic kidney disease Chronic kidney disease stage: on chronic dialysis (6) Subtherapeutic international normalized ratio (INR) Code(s): R79.1 - ABNORMAL COAGULATION PROFILE (7) Coronary artery disease Code(s): I25.10 - ATHSCL HEART DISEASE OF [place] CORONARY ARTERY W/O ANG PCTRS Qualifiers: Coronary Disease-Associated Artery/Lesion type: [place] artery [place] vs. transplanted heart: [place] heart Associated angina: without angina Qualified Code(s): I25.10 - Atherosclerotic heart disease of [place] coronary artery without angina pectoris (8) Anemia Code(s): D64.9 - ANEMIA, UNSPECIFIED Qualifiers: (9) Chronic pain disorder Code(s): G89.4 - CHRONIC PAIN SYNDROME (10) Hypertension Code(s): I10 - ESSENTIAL (PRIMARY) HYPERTENSION Qualifiers: Hypertension type: essential hypertension Qualified Code(s): I10 - Essential (primary) hypertension (11) Hyperlipidemia Code(s): E78.5 - HYPERLIPIDEMIA, UNSPECIFIED Qualifiers: Hyperlipidemia type: pure hypercholesterolemia Qualified Code(s): E78.0 - Pure hypercholesterolemia (12) BPH (benign prostatic hypertrophy) Code(s): N40.0 - BENIGN PROSTATIC HYPERPLASIA WITHOUT LOWER URINRY TRACT SYMP (13) Dependency on pain medication Code(s): F19.20 - OTHER PSYCHOACTIVE SUBSTANCE DEPENDENCE, UNCOMPLICATED (14) Hx of CABG Code(s): Z95.1 - PRESENCE OF AORTOCORONARY BYPASS GRAFT (15) History of hemiarthroplasty of left hip Code(s): Z96.642 - PRESENCE OF LEFT ARTIFICIAL HIP JOINT (16) Noncompliance of patient with renal dialysis Code(s): Z91.15 - PATIENT'S NONCOMPLIANCE WITH RENAL DIALYSIS (17) PAF (paroxysmal atrial fibrillation) Code(s): I48.0 - PAROXYSMAL ATRIAL FIBRILLATION (18) PAD (peripheral artery disease) Code(s): I73.9 - PERIPHERAL VASCULAR DISEASE, UNSPECIFIED (19) PVD (peripheral vascular disease) Code(s): I73.9 - PERIPHERAL VASCULAR DISEASE, UNSPECIFIED (20) Drug-seeking behavior Code(s): Z72.89 - OTHER PROBLEMS RELATED TO LIFESTYLE (21) ICD (implantable cardioverter-defibrillator) in place Code(s): Z95.810 - PRESENCE OF AUTOMATIC (IMPLANTABLE) CARDIAC DEFIBRILLATOR (22) S/P mitral valve repair Code(s): Z98.89 - OTHER SPECIFIED POSTPROCEDURAL STATES * DO NOT USE * (23) Status post coronary artery stent placement Code(s): Z95.5 - PRESENCE OF CORONARY ANGIOPLASTY IMPLANT AND GRAFT (24) Status post percutaneous transluminal coronary angioplasty Code(s): Z98.61 - CORONARY ANGIOPLASTY STATUS (25) DVT prophylaxis Code(s): [id number] - Visit type - Emergency Visit Emergency Visit: Yes ED Registration Date: 11/06/16 Care time: The patient presented to the Emergency Department on the above date and was hospitalized for further evaluation of their emergent condition. - New Patient This patient is new to me today: Yes Date on this admission: 11/06/16 - Critical Care Critical Care patient: No
[2016-11-07] MEDS ORDERED: HYDROmorphone HCL CARPU-JECT 1 MG/1 ML DISP.SYRIN IVPUSH ONE ×2 (06:22→10:55)
[2016-11-07] MEDS: SEVELAMER CARBONATE 800 MG TAB (FP) PO SCH ×2 (08:16→12:00)
[2016-11-07] MEDS: TAMSULOSIN HCL 0.4 MG CAP.ER.24H (FP) PO SCH (08:40)
[2016-11-07] MEDS ORDERED: HEMOQUE TEST 1 EACH EACH ONE (08:40)
[2016-11-07] MEDS: PANTOPRAZOLE 40 MG TABLET (FP) PO SCH ×3 (09:50→22:50)
[2016-11-07] MEDS: GABAPENTIN 100 MG CAPSULE (FP) PO SCH (09:50)
[2016-11-07] MEDS: CARVEDILOL 12.5 MG TABLET (FP) PO SCH ×3 (09:50→22:49)
[2016-11-07] MEDS: ISOSORBIDE MONONITRATE 30 MG TAB.SR.24H (FP) PO SCH (09:50)
[2016-11-07] MEDS: ASPIRIN 81 MG CHEWABLE TABLETS PO SCH (09:50)
--- NOTE | 2016-11-07 10:06 | EKG ---
Test Reason : Blood Pressure : / mmHG Vent. Rate : 062 BPM Atrial Rate : 250 BPM P-R Int : 000 ms QRS Dur : 156 ms QT Int : 482 ms P-R-T Axes : 000 054 -51 degrees QTc Int : 489 ms AV dual-paced rhythm Biventricular pacemaker detected NONSPECIFIC ST ABNORMALITY Confirmed by GERBER ONEILL MD ([id number]) on 11/07/2016 10:06:06 AM Referred By: Confirmed By:GERBER ONEILL MD
[2016-11-07 10:56] VITALS: BMI 22.6
--- NOTE | 2016-11-07 11:38 | CON.CARD ---
Cardiology Consult (text) - Consultation Consultation Note: cc: arms hurt hpi: 66 m hx of HTN, hyperlipidemia, dm, CAD S/P CABG (GUADALUPE to LAD, SVG to LPL , jump graft to D1/D2), history of PCI (KAT to left circumflex, prior stents to LAD, LPL and LPDA), mitral annuloplasty ring, PAFib, PAD with multiple PTAs bilaterally, syst chf, icd, ESRD on HD, cva, dvt, s/p amputation of his right 3rd finger, here with main complaint of pains in his arms. He says that he has chronic body aches but worse in his upper extremities and this was main reason he came to ER. He reports chronic intermittent sob/atypical cp as well but this is not bothering him currently. No dizzy, loc, pnd, orthopnea, le edema. 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 pmh: per hpi psh:per hpi social: no tob fam: no premature cad ros: per hpi; no nvd, fever, gib, hematuria, lanza, vision changes, cough meds: Medication Instructions Recorded Aspirin [ASA -] 81 mg PO DAILY tab.chew 09/03/16 Atorvastatin Ca [Lipitor] 20 mg PO HS tablet 09/03/16 Isosorbide Mononitrate [Imdur -] 30 mg PO DAILY tab.sr.24h 09/03/16 Carvedilol [Coreg -] 12.5 mg PO BID #60 tablet 09/20/16 Gabapentin [Neurontin -] 100 mg PO DAILY capsule 09/20/16 Pantoprazole Sodium [Protonix -] 40 mg PO BID tablet.ec 09/20/16 Sevelamer Carbonate [Renvela -] 800 mg PO TIDCM tab 09/20/16 Tamsulosin HCl [Flomax -] 0.4 mg PO DAILY@0830 cap.er.24h 09/20/16 Warfarin Na [Coumadin -] 5 mg PO DAILY@1800 #60 tablet 09/20/16 Tramadol HCl [Ultram -] 50 mg PO Q6H PRN #20 tablet MDD 4 09/26/16 pe: Vital Signs Period Temp Pulse Resp BP Sys/Hinds Pulse Ox Last 24 Hr 97.3 F-97.8 F 60-73 16-18 159-195/68-84 95-100 nad no jvd rrr s1s2 no mrg bibasilar crackles, nl eff no le edema, +edema UE's b/l aaox3 abd nt nd pos bs no jaundice diaphoresis pos dp pt, no carotid bruits Laboratory Last Values WBC 4.2 K/mm3 (4.0-10.0) 11/06/16 21:00 RBC 2.98 M/mm3 (4.00-5.60) L 11/06/16 21:00 Hgb 8.8 GM/dL (11.7-16.9) L 11/06/16 21:00 Hct 27.8 % (35.4-49) L 11/06/16 21:00 MCV 93.4 fl (80-96) 11/06/16 21:00 MCHC 31.7 g/dl (32.0-35.9) L 11/06/16 21:00 RDW 18.7 % (11.9-15.9) H 11/06/16 21:00 Plt Count 155 K/MM3 (134-434) D 11/06/16 21:00 MPV 9.3 fl (7.5-11.1) 11/06/16 21:00 Neutrophils % 59.0 % (42.8-82.8) D 11/06/16 21:00 Lymphocytes % 23.0 % (8-40) D 11/06/16 21:00 Monocytes % 14.0 % (3.8-10.2) H 11/06/16 21:00 Eosinophils % 1.0 % (0-4.5) 11/06/16 21:00 Band Neutrophils 2.0 % (0-10) 11/06/16 21:00 Differential Comment Manual diff done 11/06/16 21:00 Reactive Lymphocytes 1 % (0-80) D 11/06/16 21:00 Platelet Estimate Adequate (NORMAL) 11/06/16 21:00 Morphology Comment Slide scanned 11/06/16 21:00 INR 1.22 (0.82-1.09) H 11/06/16 20:41 Sodium 142 mmol/L (136-145) 11/06/16 21:00 Potassium 5.2 mmol/L (3.5-5.1) H 11/06/16 21:00 Chloride 105 mmol/L (98-107) 11/06/16 21:00 Carbon Dioxide 28 mmol/L (21-32) 11/06/16 21:00 Anion Gap 9 (8-16) 11/06/16 21:00 BUN 35 mg/dL (7-18) H D 11/06/16 21:00 Creatinine 5.9 mg/dL (0.7-1.3) H D 11/06/16 21:00 Creat Clearance w eGFR 9.61 (>60) 11/06/16 21:00 POC Glucometer 170.18090 UNITS (()) 11/07/16 08:48 Random Glucose 136 mg/dL (74-106) H 11/06/16 21:00 Calcium 7.6 mg/dL (8.5-10.1) L 11/06/16 21:00 Total Bilirubin 0.4 mg/dL (0.2-1.0) 11/06/16 21:00 AST 25 U/L (15-37) 11/06/16 21:00 ALT 13 U/L (12-78) 11/06/16 21:00 Alkaline Phosphatase 157 U/L (45-117) H 11/06/16 21:00 Creatine Kinase 167 IU/L (39-308) D 11/06/16 20:41 Creatine Kinase Index 2.9 % (0.0-5.0) 11/06/16 20:41 CK-MB (CK-2) 4.814 ng/ml (0.5-3.6) H 11/06/16 20:41 CK-MB (CK-2) Rel Index Cancelled 11/06/16 20:41 Troponin I 0.02 ng/ml (0.00-0.05) 11/07/16 10:06 B-Natriuretic Peptide 72246.17 pg/ml (5-125) H 11/06/16 20:41 Total Protein 6.3 g/dl (6.4-8.2) L 11/06/16 21:00 Albumin 2.5 g/dl (3.4-5.0) L 11/06/16 21:00 cxr: +chf ecg 11/06/16: a-v paced mibi 04/2016: moderate inferolateral fixed defect c/w infarct with inferolateral akinesia and LVEF 54%. 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 arm pain, chronic body aches: -has some bl upper extr edema, can check duplex UE's to look for dvt -pain management per primary team sob, acute systolic chf (ICM): -sob minimal, pt only complaining of body aches now -pt has mild pulm congestion on exam and cxr -would proceed with hd per renal to manage mild vol overload -cont coreg for chf regimen. not on rickie/arb 2/2 hyperkalemia (per prior notes). cont imdur/hydralazine -s/p icd with nl fcn on ecg cp, cad s/p cabg, pci: -currently no cp, has hx of intermittent atypical cp -no signs acs here, trop negx3 -cont coreg, statin, asa, imdur -recent mibi w/o ischemia hld: -cont statin htn: -elevated here, resume home coreg, imdur, hydralazine and monitor mv ring: -recent echo with only moderate MR pad: -cont statin, asa, bp control esrd: -cont hd per renal Anemia: -chronic, hgb at baseline -prior EGD showing multiple esophageal and gastric ulcers pafib: -cont coreg for rate control -CHADSVASC is 7 with hx cva so has indication for ac but on prior admits here it has been documented that he is noncompliant with meds and follow up. INR is low here again, so likely has not been taking coumadin. 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
[2016-11-07] MEDS ORDERED: hydrALAZINE HCL 25 MG TABLET (FP) PO SCH (12:00)
[2016-11-07] MEDS ORDERED: HYDROmorphone HCL CARPU-JECT 1 MG/1 ML DISP.SYRIN ONE (13:50)
[2016-11-07] MEDS ORDERED: EPOETIN ALFA 2,000 UNITS/1 ML VIAL IVPUSH ONE (14:21)
--- NOTE | 2016-11-07 14:22 | CONSULT ---
Consult Consult Specialty:: Nephrology Reason for Consultation:: ESRD - History of Present Illness Chief Complaint: shortness of breath History of Present Illness: Pt is a 66 year old male with ESRD who is well known to our service who presents to the ER with increased shortness of breath. He says he was last dialyzed yesterday. He also complains of edema. He is not compliant. He has history of ESRD, DM, HTH, DVT, and CAD. He denies fevers or chills. He denies chest pain or palpitations. 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: CVA Cardio/Vascular: Yes: AFIB (paroxysmal), CAD (CABG, PCI/KAT), CHF, Deep Vein Thrombosis, HTN, Hyperlipdemia Renal/: Yes: Renal Failure, Hemodialysis Psych: Yes: Anxiety Endocrine: Yes: Diabetes Mellitus - Past Surgical History Past Surgical History: Yes: AICD, Amputation (right 3rd finger), CABG (3v CABG and mitral ring 2009 (GUADALUPE->LAD, SVG->LPL, SVG->D1 jump D2.), Stent - Alcohol/Substance Use Hx Alcohol Use: No History of Substance Use: reports: Prescription - Smoking History Smoking history: Former smoker Have you smoked in the past 12 months: No Aproximately how many cigarettes per day: 0 If you are a former smoker, when did you quit?: 2013 - Social History Usual Living Arrangement: With Spouse ADL: Independent History of Recent Travel: No Home Medications - Allergies Allergies/Adverse Reactions: Allergies Allergy/AdvReac Type Severity Reaction Status Date / Time No Known Drug Allergies Allergy Verified 11/06/16 20:08 - Home Medications Home Medications: Ambulatory Orders Aspirin [ASA -] 81 mg PO DAILY tab.chew 09/03/16 Atorvastatin Ca [Lipitor] 20 mg PO HS tablet 09/03/16 Isosorbide Mononitrate [Imdur -] 30 mg PO DAILY tab.sr.24h 09/03/16 Carvedilol [Coreg -] 12.5 mg PO BID #60 tablet 09/20/16 Gabapentin [Neurontin -] 100 mg PO DAILY capsule 09/20/16 Pantoprazole Sodium [Protonix -] 40 mg PO BID tablet.ec 09/20/16 Sevelamer Carbonate [Renvela -] 800 mg PO TIDCM tab 09/20/16 Tamsulosin HCl [Flomax -] 0.4 mg PO DAILY@0830 cap.er.24h 09/20/16 Warfarin Na [Coumadin -] 5 mg PO DAILY@1800 #60 tablet 09/20/16 Tramadol HCl [Ultram -] 50 mg PO Q6H PRN #20 tablet MDD 4 09/26/16 Family Disease History - Family Disease History Family Disease History: Diabetes: Brother, Heart Disease: Brother, Other: Father (Stroke) Review of Systems - Review of Systems Constitutional: reports: Malaise Eyes: reports: No Symptoms HENT: reports: No Symptoms Neck: reports: No Symptoms Cardiovascular: reports: Edema, Shortness of Breath Respiratory: reports: SOB, SOB on Exertion Gastrointestinal: reports: No Symptoms Genitourinary: reports: No Symptoms Musculoskeletal: reports: No Symptoms Physical Exam Vital Signs: Vital Signs Temperature 97.6 F 11/07/16 10:44 Pulse Rate 60 11/07/16 10:44 Respiratory Rate 18 11/07/16 10:44 Blood Pressure 169/74 11/07/16 10:44 O2 Sat by Pulse Oximetry (%) 96 11/07/16 07:24 Constitutional: Yes: Calm Eyes: Yes: Conjunctiva Clear Cardiovascular: Yes: S1, S2 Respiratory: Yes: CTA Bilaterally Gastrointestinal: Yes: Normal Bowel Sounds Musculoskeletal: Yes: WNL Edema: Yes Edema: LUE: 2+, RUE: 2+ Neurological: Yes: Oriented Psychiatric: Yes: Oriented Imaging - Results Chest X-ray: Report Reviewed (chf) Problem List - Problems (1) BPH (benign prostatic hypertrophy) Code(s): N40.0 - BENIGN PROSTATIC HYPERPLASIA WITHOUT LOWER URINRY TRACT SYMP (2) DVT (deep venous thrombosis) Code(s): I82.409 - ACUTE EMBOLISM AND THOMBOS UNSP DEEP VN UNSP LOWER EXTREMITY (3) ESRD (end stage renal disease) on dialysis Code(s): N18.6 - END STAGE RENAL DISEASE Z99.2 - DEPENDENCE ON RENAL DIALYSIS (4) Hx of CABG Code(s): Z95.1 - PRESENCE OF AORTOCORONARY BYPASS GRAFT (5) Hyperlipidemia Code(s): E78.5 - HYPERLIPIDEMIA, UNSPECIFIED Qualifiers: Hyperlipidemia type: pure hypercholesterolemia Qualified Code(s): E78.0 - Pure hypercholesterolemia (6) Hypertension Code(s): I10 - ESSENTIAL (PRIMARY) HYPERTENSION Qualifiers: Hypertension type: essential hypertension Qualified Code(s): I10 - Essential (primary) hypertension Assessment/Plan Current Medications Generic Name Dose Route Start Last Admin Trade Name Freq PRN Reason Stop Dose Admin Aspirin 81 mg 11/07/16 10:00 11/07/16 09:50 Asa - PO 81 mg DAILY [facility] Administration Atorvastatin Calcium 20 mg 11/07/16 22:00 Lipitor - PO HS [facility] Carvedilol 12.5 mg 11/07/16 10:00 11/07/16 09:50 Coreg - PO 12.5 mg BID [facility] Administration Epoetin Devin 5,000 units 11/07/16 14:21 Epogen - IVPUSH 11/07/16 14:22 ONCE ONE Gabapentin 100 mg 11/07/16 10:00 11/07/16 09:50 Neurontin - PO 100 mg DAILY [facility] Administration Hydralazine HCl 50 mg 11/07/16 12:13 Apresoline - PO BID [facility] Isosorbide Mononitrate 30 mg 11/07/16 10:00 11/07/16 09:50 Imdur - PO 30 mg DAILY [facility] Administration Pantoprazole Sodium 40 mg 11/07/16 10:00 11/07/16 09:50 Protonix - PO 40 mg BID [facility] Administration Sevelamer Carbonate 800 mg 11/07/16 08:00 11/07/16 12:00 Renvela - PO 800 mg TIDCM [facility] Administration Tamsulosin HCl 0.4 mg 11/07/16 08:30 11/07/16 08:40 Flomax - PO 0.4 mg DAILY@0830 [facility] Administration Tramadol HCl 50 mg 11/07/16 06:53 Ultram - PO Q6H PRN PAIN Warfarin Sodium 7.5 mg 11/07/16 18:00 Coumadin - PO 11/07/16 18:01 DAILY@1800 ONE Warfarin Sodium 5 mg 11/08/16 18:00 Coumadin - PO DAILY@1800 [facility] Impression 1. ESRD 2. CAD 3. HTN 4. narcotic dependence 5. non compliance 6. pleural effusions 7. anemia 8. dyspnea 9. DVT 10. hx GI bleed 11. hyperkalemia Plan - will arrange for urgent dialysis today - resume home meds - discussed with medical team - pt is on TTS schedule - will also evaluate for HD in am - will arrange for hd to treat hyperkalemia - will UF volume on HD - epogen for anemia - pt has a long history of non compliance Dr Campos
--- NOTE | 2016-11-07 15:52 | PN ---
Physical Exam: SUBJECTIVE: Patient seen and examined in the ER. He denies any chest pain or shortness of breath, states it is now resolved. OBJECTIVE: GENERAL: The patient is awake, alert, and fully oriented, in no acute distress, mostly Estonian speaking HEAD: periorbital edema, EYES: PERRL, extraocular movements intact, sclera anicteric, conjunctiva clear. No ptosis. ENT: Ears normal, nares patent, oropharynx clear without exudates, moist mucous membranes. NECK: Trachea midline, full range of motion, supple. LUNGS: anterior and posterior lung sounds with crackles on both lung ceron HEART: Regular rate and rhythm ABDOMEN: Soft, nontender, nondistended, normoactive bowel sounds, no guarding EXTREMITIES: Right hand with large scab, right forearm with open wound. Left arm very edematous, concern for DVT - doppler ordered NEUROLOGICAL: Normal speech, gait not observed. PSYCH: Normal mood, normal affect. Active Medications Generic Name Dose Route Start Last Admin Trade Name Freq PRN Reason Stop Dose Admin Aspirin 81 mg 11/07/16 10:00 11/07/16 09:50 Asa - PO 81 mg DAILY [facility] Administration Atorvastatin Calcium 20 mg 11/07/16 22:00 Lipitor - PO HS [facility] Carvedilol 12.5 mg 11/07/16 10:00 11/07/16 09:50 Coreg - PO 12.5 mg BID [facility] Administration Epoetin Devin 5,000 units 11/07/16 14:21 Epogen - IVPUSH 11/07/16 14:22 ONCE ONE Gabapentin 100 mg 11/07/16 10:00 11/07/16 09:50 Neurontin - PO 100 mg DAILY [facility] Administration Hydralazine HCl 50 mg 11/07/16 12:13 Apresoline - PO BID [facility] Isosorbide Mononitrate 30 mg 11/07/16 10:00 11/07/16 09:50 Imdur - PO 30 mg DAILY [facility] Administration Pantoprazole Sodium 40 mg 11/07/16 10:00 11/07/16 09:50 Protonix - PO 40 mg BID [facility] Administration Sevelamer Carbonate 800 mg 11/07/16 08:00 11/07/16 12:00 Renvela - PO 800 mg TIDCM [facility] Administration Tamsulosin HCl 0.4 mg 11/07/16 08:30 11/07/16 08:40 Flomax - PO 0.4 mg DAILY@0830 [facility] Administration Tramadol HCl 50 mg 11/07/16 06:53 Ultram - PO Q6H PRN PAIN Warfarin Sodium 7.5 mg 11/07/16 18:00 Coumadin - PO 11/07/16 18:01 DAILY@1800 ONE Warfarin Sodium 5 mg 11/08/16 18:00 Coumadin - PO DAILY@1800 [facility] ASSESSMENT/PLAN: Patient is a 66 year old male with a significant past medical history of ESRD ( Tues, Thurs, Sat), CAD, hyperlipidemia, Diabetes Mellitus, CHF, Paroxysmal Atrial Fibrillation, PAD, Right Arm DVT, CVA, Anemia, BPH, CABG, cardiac stents , AICD, left femur fracture ([facility] 10/2016). He presented to the ED on 11/06/2016 with right sided chest pain radiating to his left jaw and shortness of breath. Patient reports the pain had awoken him from sleep, and that he has been feeling weak. He reports having a fall recently. Patient reports his last dialysis was yesterday 11/05/16. On exam with director operations present, pt denies any chest pain or shortness of breath. Cardiology: Chest Pain - now resolved Assessment/Plan. Has history of atypical chest pain, troponin negative x 3 On Coreq BID, ASA 81mg and Imdur Continue to monitor Hyperlipidemia: Assessment/Plan: On Lipitor Hypertension - chronic Asessment/Plan: On Coreq, Imdur, Hydralazine Monitor BPs, titrate meds if remains hypertensive Paroxysmal Afib - chronic Assessment/Plan: controlled on Coumadin, but pt reports poor compliance INR subtherapeutic, will receive Coumadin 7.5mg tonight, then Coumadin 5mg daily Check INR Pulmonary: Shortness of Breath - resolved Assessment/Plan: Tolerating room air, Lasix given in ER Monitor I&Os and daily weights Oxygen as needed : End Stage Renal disease - chronic Assessment/Plan: Emergent dialysis today Endocrine: Diabetes mellitus - chronic Assessment/Plan: Monitor BGMs F.E.N. Fluids: Tolerating PO fluids 1 liters fluid restriction per renal Low sodium/diabetic diet Prophylaxis: DVT: ambulates, Coumadin GI: On Protonix daily Code Status: Requires inpatient hospitalization. Full Code Visit type - Emergency Visit Emergency Visit: Yes ED Registration Date: 11/07/16 Care time: The patient presented to the Emergency Department on the above date and was hospitalized for further evaluation of their emergent condition. - New Patient This patient is new to me today: Yes Date on this admission: 11/08/16 - Critical Care Critical Care patient: No - Discharge Referral Referred to [facility] No
[2016-11-07] MEDS ORDERED: WARFARIN NA 5 MG TABLET (UD) PO ONE (18:00)
[2016-11-07] MEDS ORDERED: WARFARIN NA 5 MG TABLET (UD) PO SCH ×2 (18:00)
[2016-11-07] MEDS: traMADol HCL 50 MG TABLET PO PRN (22:45)
[2016-11-07] MEDS: ATORVASTATIN CA 20 MG TABLET (FP) PO SCH ×2 (22:46→22:49)
[2016-11-07] MEDS: hydrALAZINE HCL 50 MG TABLET (FP) PO SCH ×2 (22:46→22:49)
[2016-11-07] MEDS: INSULIN SLIDING SCALE (NOVOLOG) 1 VIAL SQ SCH (22:48)
[2016-11-08] MEDS: traMADol HCL 50 MG TABLET PO PRN ×3 (00:14→21:47)
[2016-11-08] MEDS: INSULIN SLIDING SCALE (NOVOLOG) 1 VIAL SQ SCH ×3 (07:15→21:52)
[2016-11-08 08:27] LABS: BASOPHIL 1.1 % (0-2.0); EOSINOPHIL 4.9 % (0-4.5); MCH 29.6 pg (25.7-33.7); MCHC 31.5 g/dl (32.0-35.9); MEAN PLT VOLUME 8.4 fl (7.5-11.1); PLATELET COUNT 126 K/MM3 (134-434); RDW 18.7 % (11.9-15.9); WHITE BLOOD COUNT 4.1 K/mm3 (4.0-10.0)
[2016-11-08 08:40] LABS: INR 1.24 (0.82-1.09); PROTHROMBIN TIME (PATIENT) 13.7 SEC (9.98-11.88)
[2016-11-08] MEDS ORDERED: WARFARIN NA 5 MG TABLET (UD) PO ONE (08:46)
[2016-11-08 08:54] LABS: CALCIUM 8.1 mg/dL (8.5-10.1); MAGNESIUM 2.4 mg/dL (1.8-2.4); PHOSPHOROUS 3.8 mg/dL (2.5-4.9)
--- NOTE | 2016-11-08 09:22 | PN ---
Progress Note, Physician Chief Complaint: cp, sob History of Present Illness: breathing better than yest; denies ongoing cp; no palpitations, leg swelling - Current Medication List Current Medications: Active Medications Aspirin (Asa -) 81 mg PO DAILY [facility] Last Admin: 11/07/16 09:50 Dose: 81 mg Atorvastatin Calcium (Lipitor -) 20 mg PO HS [facility] Last Admin: 11/07/16 22:49 Dose: Not Given Bacitracin (Bacitracin -) 1 applic TP BID [facility] Carvedilol (Coreg -) 12.5 mg PO BID [facility] Last Admin: 11/07/16 22:49 Dose: Not Given Gabapentin (Neurontin -) 100 mg PO DAILY [facility] Last Admin: 11/07/16 09:50 Dose: 100 mg Hydralazine HCl (Apresoline -) 50 mg PO BID [facility] Last Admin: 11/07/16 22:49 Dose: Not Given Insulin Aspart (Novolog Vial Sliding Scale -) 1 vial SQ [facility] PRN Reason: Protocol Last Admin: 11/08/16 07:15 Dose: Not Given Isosorbide Mononitrate (Imdur -) 30 mg PO DAILY [facility] Last Admin: 11/07/16 09:50 Dose: 30 mg Pantoprazole Sodium (Protonix -) 40 mg PO BID [facility] Last Admin: 11/07/16 22:50 Dose: Not Given Sevelamer Carbonate (Renvela -) 800 mg PO TIDCM [facility] Last Admin: 11/07/16 12:00 Dose: 800 mg Tamsulosin HCl (Flomax -) 0.4 mg PO DAILY@0830 [facility] Last Admin: 11/07/16 08:40 Dose: 0.4 mg Tramadol HCl (Ultram -) 50 mg PO Q6H PRN PRN Reason: PAIN Last Admin: 11/08/16 05:44 Dose: 50 mg Warfarin Sodium (Coumadin -) 5 mg PO DAILY@1800 [facility] - Objective Vital Signs: Vital Signs Temperature 97.6 F 11/08/16 06:00 Pulse Rate 61 11/08/16 06:00 Respiratory Rate 20 11/08/16 06:00 Blood Pressure 137/67 11/08/16 06:00 O2 Sat by Pulse Oximetry (%) 94 L 11/07/16 23:00 Constitutional: Yes: Well Nourished, No Distress, Calm Cardiovascular: Yes: Regular Rate and Rhythm, S1, S2. No: Gallop, Murmur Respiratory: Yes: Regular, CTA Bilaterally. No: Accessory Muscle Use, Rales, Wheezes Extremities: No: Cold Edema: No Neurological: Yes: Alert. No: Seizure Psychiatric: No: Agitated Labs: CBC, BMP 11/08/16 08:10 11/08/16 08:10 INR, PTT INR 1.24 (0.82-1.09) H 11/08/16 08:10 Assessment/Plan cxr: +chf ecg 11/06/16: a-v paced mibi 04/2016: moderate inferolateral fixed defect c/w infarct with inferolateral akinesia and LVEF 54%. 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 arm pain, chronic body aches: -has some bl upper extr edema, can check duplex UE's to look for dvt -pain management per primary team sob, acute systolic chf (ICM): -sob minimal, pt only complaining of body aches now -evidence of mild pulm congestion on exam and cxr on admit -sob resolved s/p extra HD yesterday -volume mgmt via HD/UF -cont coreg for chf regimen. not on rickie/arb 2/2 hyperkalemia (per prior notes). cont imdur/hydralazine -s/p icd with nl fcn on ecg -pt admits he does not f/u with floodplain manager (only emmanuelle he says)--advised him it is critically important that have regular outpt f/u; d/w'd dr denny as well ( covering for emmanuelle) cp, cad s/p cabg, pci: -currently no cp, has hx of intermittent atypical cp -no signs acs here, trop negx3 -cont coreg, statin, imdur -recent mibi w/o ischemia -in pt with stable, chronic CAD and no recent stents, it is likely that bleeding risks of continuing ASA with AC are > benefits (ischemia prevention seems to be quite good with AC alone); however, would need input from vascular ( ? anti-PLT needed to improve LE COMPOSITE ENGINEER patency) and neuro (? had strokes despite being on AC in past and anti-PLT added) prior to stopping ASA in this particular pt hld: -cont statin htn: -elevated here, resume home coreg, imdur, hydralazine and monitor mv ring: -recent echo with only moderate MR pad: -cont statin, asa, bp control esrd: -cont hd per renal Anemia: -chronic, hgb at baseline -prior EGD showing multiple esophageal and gastric ulcers pafib: -cont coreg for rate control -CHADSVASC is 7 with hx cva so has indication for ac -by review of prior admits here, pt repeatedly noncompliant with meds and follow up. -based on subtherapeutic INR here again, he is not being adequately protected from recurrent cardioembolic risk/stroke. -hence he has proven that warfarin is not a safe option for him, and a strategy of optimizing his INR whenever he is in hospital but then sending him home on warfarin without adequte [id number] and inr f/u is not in his best interests -rec change to eliquis (2.5mg bid based on HD indication for wt <60 kg)--good safety data in HD pts
[2016-11-08] MEDS: TAMSULOSIN HCL 0.4 MG CAP.ER.24H (FP) PO SCH (09:53)
[2016-11-08] MEDS: SEVELAMER CARBONATE 800 MG TAB (FP) PO SCH ×2 (09:53→11:29)
[2016-11-08] MEDS: hydrALAZINE HCL 50 MG TABLET (FP) PO SCH ×2 (09:54→21:47)
[2016-11-08] MEDS: CARVEDILOL 12.5 MG TABLET (FP) PO SCH ×2 (09:54→21:47)
[2016-11-08] MEDS: BACITRACIN 30 GM TUBE TOPICAL OINTMENT TP SCH ×2 (09:54→21:47)
[2016-11-08] MEDS: ASPIRIN 81 MG CHEWABLE TABLETS PO SCH (09:54)
[2016-11-08] MEDS: ISOSORBIDE MONONITRATE 30 MG TAB.SR.24H (FP) PO SCH (09:55)
[2016-11-08] MEDS: GABAPENTIN 100 MG CAPSULE (FP) PO SCH (09:55)
[2016-11-08] MEDS: PANTOPRAZOLE 40 MG TABLET (FP) PO SCH ×2 (09:55→21:46)
[2016-11-08] MEDS ORDERED: INSULIN (NOVOLOG) ASPART 100 UNITS/ML 10ML VIAL ONE (11:26)
[2016-11-08] MEDS: APIXABAN 2.5 MG TABLET PO SCH ×2 (11:29→21:46)
--- NOTE | 2016-11-08 14:00 | PN ---
Physical Exam: SUBJECTIVE: Patient seen and examined. He denies chest pain or shortness of breath. States he feels better after dialysis. OBJECTIVE: Vital Signs Period Temp Pulse Resp BP Sys/Hinds Pulse Ox Last 24 Hr 97.4 F-98 F 59-63 18-20 130-168/57-86 94 GENERAL: The patient is awake, alert, and fully oriented, in no acute distress, mostly Namibian speaking HEAD: periorbital edema improved EYES: PERRL, extraocular movements intact, sclera anicteric, conjunctiva clear. No ptosis. ENT: Ears normal, nares patent, oropharynx clear without exudates, moist mucous membranes. NECK: Trachea midline, full range of motion, supple. LUNGS: anterior lung sounds clear to auscultation. ABDOMEN: Soft, nontender, nondistended, normoactive bowel sounds, no guarding EXTREMITIES: Right hand with large scab, right forearm with open wound. Left arm very edematous, negative for DVT NEUROLOGICAL: Normal speech, gait not observed. PSYCH: Normal mood, normal affect. Laboratory Results - last 24 hr 11/07/16 11/08/16 11/08/16 22:42 06:07 08:10 WBC 4.1 RBC 2.89 L Hgb 8.6 L Hct 27.2 L MCV 94.0 MCHC 31.5 L RDW 18.7 H Plt Count 126 L MPV 8.4 Neutrophils % 68.0 Lymphocytes % 11.3 D Monocytes % 14.7 H Eosinophils % 4.9 H D Basophils % 1.1 INR Sodium Potassium Chloride Carbon Dioxide Anion Gap BUN Creatinine POC Glucometer 138 78 Random Glucose Calcium Phosphorus Magnesium 11/08/16 11/08/16 11/08/16 08:10 08:10 11:24 WBC RBC Hgb Hct MCV MCHC RDW Plt Count MPV Neutrophils % Lymphocytes % Monocytes % Eosinophils % Basophils % INR 1.24 H Sodium 142 Potassium 4.3 Chloride 102 Carbon Dioxide 31 Anion Gap 9 BUN 21 H D Creatinine 4.0 H D POC Glucometer 295 Random Glucose 71 L D Calcium 8.1 L Phosphorus 3.8 D Magnesium 2.4 Active Medications Generic Name Dose Route Start Last Admin Trade Name Freq PRN Reason Stop Dose Admin Apixaban 2.5 mg 11/08/16 10:00 11/08/16 11:29 Eliquis - PO 2.5 mg BID [facility] Administration Aspirin 81 mg 11/07/16 10:00 11/08/16 09:54 Asa - PO 81 mg DAILY [facility] Administration Atorvastatin Calcium 20 mg 11/07/16 22:00 11/07/16 22:49 Lipitor - PO Not Given HS [facility] Bacitracin 1 applic 11/08/16 10:00 11/08/16 09:54 Bacitracin - TP 1 applic BID [facility] Administration Carvedilol 12.5 mg 11/07/16 10:00 11/08/16 09:54 Coreg - PO 12.5 mg BID [facility] Administration Gabapentin 100 mg 11/07/16 10:00 11/08/16 09:55 Neurontin - PO 100 mg DAILY [facility] Administration Hydralazine HCl 50 mg 11/07/16 12:13 11/08/16 09:54 Apresoline - PO 50 mg BID [facility] Administration Insulin Aspart 1 vial 11/07/16 22:00 11/08/16 11:28 Novolog Vial Sliding Scale - SQ 6 units ACHS [facility] Administration Protocol Isosorbide Mononitrate 30 mg 11/07/16 10:00 11/08/16 09:55 Imdur - PO 30 mg DAILY [facility] Administration Pantoprazole Sodium 40 mg 11/07/16 10:00 11/08/16 09:55 Protonix - PO 40 mg BID [facility] Administration Sevelamer Carbonate 800 mg 11/07/16 08:00 11/08/16 11:29 Renvela - PO 800 mg TIDCM [facility] Administration Tamsulosin HCl 0.4 mg 11/07/16 08:30 11/08/16 09:53 Flomax - PO 0.4 mg DAILY@0830 [facility] Administration Tramadol HCl 50 mg 11/07/16 06:53 11/08/16 05:44 Ultram - PO 50 mg Q6H PRN Administration PAIN ASSESSMENT/PLAN: Patient is a 66 year old male with a significant past medical history of ESRD ( Tues, Thurs, Sat), CAD, hyperlipidemia, Diabetes Mellitus, CHF, Paroxysmal Atrial Fibrillation, PAD, Right Arm DVT, CVA, Anemia, BPH, CABG, cardiac stents , AICD, left femur fracture ([facility] 10/2016). He presented to the ED on 11/06/2016 with right sided chest pain radiating to his left jaw and shortness of breath. Patient reported the chest pain had awoken him from sleep, and that he has been feeling weak. He reports having a fall recently. Patient reports his last dialysis was 11/05/16. On exam with housekeeper child care present, pt denies any chest pain or shortness of breath. He had emergent dialysis yesterday. Cardiology: Chest Pain - now resolved Assessment/Plan. Has history of atypical chest pain, troponin negative x 3 On Coreq BID, ASA 81mg and Imdur Continue to monitor Hyperlipidemia: Assessment/Plan: On Lipitor Hypertension - chronic Asessment/Plan: On Coreq, Imdur, Hydralazine Monitor BPs, titrate meds if remains hypertensive Paroxysmal Afib - chronic Assessment/Plan: Changed to Eliquis 2.5mg BID by Cardiology Pt is non compliant with Coumadin and INR follow up Pulmonary: Shortness of Breath - resolved Assessment/Plan: Tolerating room air, Lasix given in ER Monitor I&Os and daily weights : End Stage Renal disease - chronic Assessment/Plan: Emergent dialysis yesterday Endocrine: Diabetes mellitus - chronic Assessment/Plan: Monitor BGMs F.E.N. Fluids: Tolerating PO fluids 1 liters fluid restriction per renal Low sodium/diabetic diet Prophylaxis: DVT: ambulates, started on Eliquis GI: On Protonix daily Code Status: Requires inpatient hospitalization. Full Code Visit type - Emergency Visit Emergency Visit: Yes ED Registration Date: 11/07/16 Care time: The patient presented to the Emergency Department on the above date and was hospitalized for further evaluation of their emergent condition. - New Patient This patient is new to me today: No - Critical Care Critical Care patient: No - Discharge Referral Referred to [facility] Med P.C.: No
--- NOTE | 2016-11-08 14:11 | PN ---
Progress Note, Physician Chief Complaint: Renal f/u Pt lying flat in bed in no distress He wants to got home Last HD was yesterday Seen by cardiology Coumadin changed to Eliquis at 2.5 mgs PO BID - Current Medication List Current Medications: Active Medications Apixaban (Eliquis -) 2.5 mg PO BID [facility] Last Admin: 11/08/16 11:29 Dose: 2.5 mg Aspirin (Asa -) 81 mg PO DAILY [facility] Last Admin: 11/08/16 09:54 Dose: 81 mg Atorvastatin Calcium (Lipitor -) 20 mg PO HS [facility] Last Admin: 11/07/16 22:49 Dose: Not Given Bacitracin (Bacitracin -) 1 applic TP BID [facility] Last Admin: 11/08/16 09:54 Dose: 1 applic Carvedilol (Coreg -) 12.5 mg PO BID [facility] Last Admin: 11/08/16 09:54 Dose: 12.5 mg Gabapentin (Neurontin -) 100 mg PO DAILY [facility] Last Admin: 11/08/16 09:55 Dose: 100 mg Hydralazine HCl (Apresoline -) 50 mg PO BID [facility] Last Admin: 11/08/16 09:54 Dose: 50 mg Insulin Aspart (Novolog Vial Sliding Scale -) 1 vial SQ ACHS [facility] PRN Reason: Protocol Last Admin: 11/08/16 11:28 Dose: 6 units Isosorbide Mononitrate (Imdur -) 30 mg PO DAILY [facility] Last Admin: 11/08/16 09:55 Dose: 30 mg Pantoprazole Sodium (Protonix -) 40 mg PO BID [facility] Last Admin: 11/08/16 09:55 Dose: 40 mg Sevelamer Carbonate (Renvela -) 800 mg PO TIDCM [facility] Last Admin: 11/08/16 11:29 Dose: 800 mg Tamsulosin HCl (Flomax -) 0.4 mg PO DAILY@0830 [facility] Last Admin: 11/08/16 09:53 Dose: 0.4 mg Tramadol HCl (Ultram -) 50 mg PO Q6H PRN PRN Reason: PAIN Last Admin: 11/08/16 05:44 Dose: 50 mg - Objective Vital Signs: Vital Signs Temperature 97.7 F 11/08/16 13:34 Pulse Rate 60 11/08/16 13:34 Respiratory Rate 18 11/08/16 13:34 Blood Pressure 137/67 11/08/16 06:00 O2 Sat by Pulse Oximetry (%) 94 L 11/07/16 23:00 Neck: Yes: Other (Right sided IJ Perm Cath) Cardiovascular: Yes: S1, S2 Respiratory: Yes: CTA Bilaterally Gastrointestinal: Yes: Soft. No: Tenderness, Rebound Extremities: Yes: Other (Healing right hand wound) Edema: No Neurological: Yes: Alert Labs: CBC, BMP 11/08/16 08:10 11/08/16 08:10 INR, PTT INR 1.24 (0.82-1.09) H 11/08/16 08:10 Assessment/Plan Impression ESRD in now compliant pt that had hyperkalemia on admission CAD HTN Narcotic dependence Anemia S/P dyspnea DVT PAF S/P GI bleed Plan Non compliance with dialysis addressed with pt Will dialyze for 2 additional hours today so as to place pt back on a and Sat schedule AC as per cardiology and primary care Dr Ramsey
--- NOTE | 2016-11-08 15:52 | DS ---
Physical Exam: SUBJECTIVE: Patient seen and examined earlier today. Now getting dialysis. will be discharged after dialysis. OBJECTIVE: Vital Signs Period Temp Pulse Resp BP Sys/Hinds Pulse Ox Last 24 Hr 97.4 F-98 F 59-63 18-20 130-168/57-86 94 PHYSICAL EXAM GENERAL: The patient is awake, alert, and fully oriented, in no acute distress, mostly Beninese speaking HEAD: periorbital edema improved EYES: PERRL, extraocular movements intact, sclera anicteric, conjunctiva clear. No ptosis. ENT: Ears normal, nares patent, oropharynx clear without exudates, moist mucous membranes. NECK: Trachea midline, full range of motion, supple. LUNGS: anterior lung sounds clear to auscultation. ABDOMEN: Soft, nontender, nondistended, normoactive bowel sounds, no guarding EXTREMITIES: Right hand with large scab, right forearm with open wound. Left arm very edematous, negative for DVT NEUROLOGICAL: Normal speech, gait not observed. PSYCH: Normal mood, normal affect. LABS Laboratory Results - last 24 hr 11/07/16 11/08/16 11/08/16 22:42 06:07 08:10 WBC 4.1 RBC 2.89 L Hgb 8.6 L Hct 27.2 L MCV 94.0 MCHC 31.5 L RDW 18.7 H Plt Count 126 L MPV 8.4 Neutrophils % 68.0 Lymphocytes % 11.3 D Monocytes % 14.7 H Eosinophils % 4.9 H D Basophils % 1.1 INR Sodium Potassium Chloride Carbon Dioxide Anion Gap BUN Creatinine POC Glucometer 138 78 Random Glucose Calcium Phosphorus Magnesium 11/08/16 11/08/16 11/08/16 08:10 08:10 11:24 WBC RBC Hgb Hct MCV MCHC RDW Plt Count MPV Neutrophils % Lymphocytes % Monocytes % Eosinophils % Basophils % INR 1.24 H Sodium 142 Potassium 4.3 Chloride 102 Carbon Dioxide 31 Anion Gap 9 BUN 21 H D Creatinine 4.0 H D POC Glucometer 295 Random Glucose 71 L D Calcium 8.1 L Phosphorus 3.8 D Magnesium 2.4 HOSPITAL COURSE: Date of Admission:11/07/16 Date of Discharge: 11/08/16 ASSESSMENT/PLAN: Patient is a 66 year old male with a significant past medical history of ESRD ( Tues, Thurs, Sat), CAD, hyperlipidemia, Diabetes Mellitus, CHF, Paroxysmal Atrial Fibrillation, PAD, Right Arm DVT, CVA, Anemia, BPH, CABG, cardiac stents , AICD, left femur fracture ([facility] 10/2016). He presented to the ED on 11/06/2016 with right sided chest pain radiating to his left jaw and shortness of breath. Patient reported the chest pain had awoken him from sleep, and that he has been feeling weak. He reports having a fall recently. Patient reports his last dialysis was 11/05/16. On exam with financial officer present, pt denies any chest pain or shortness of breath. He had emergent dialysis yesterday, will get a 2 hour dialysis today then d/c home. Cardiology: Chest Pain - resolved Assessment/Plan. Has history of atypical chest pain, troponin negative x 3 On Coreq BID, ASA 81mg and Imdur Continue to monitor Hyperlipidemia: Assessment/Plan: On Lipitor Hypertension - chronic Asessment/Plan: On Coreq, Imdur, Hydralazine Monitor BPs, titrate meds if remains hypertensive Paroxysmal Afib - chronic Assessment/Plan: Changed to Eliquis 2.5mg BID by Cardiology Pt is non compliant with Coumadin and INR follow up Pulmonary: Shortness of Breath - resolved Assessment/Plan: Tolerating room air, Lasix given in ER Monitor I&Os and daily weights : End Stage Renal disease - chronic Assessment/Plan: Emergent dialysis yesterday. Also dialysis today Endocrine: Diabetes mellitus - chronic Assessment/Plan: Monitor BGMs Code Status: Requires inpatient hospitalization. Full Code Minutes to complete discharge: 40 Discharge Summary Reason For Visit: SHORTNESS OF BREATH Current Active Problems CHF exacerbation (Acute) Chest pain (Acute) DVT prophylaxis (Acute) Hip pain, left (Acute) Hyperkalemia, diminished renal excretion (Acute) Subtherapeutic international normalized ratio (INR) (Acute) Unable to ambulate (Acute) Anemia (Chronic) BPH (benign prostatic hypertrophy) (Chronic) Chronic pain disorder (Chronic) Chronic systolic heart failure (Chronic) Coronary artery disease (Chronic) DVT (deep venous thrombosis) (Chronic) Dependency on pain medication (Chronic) ESRD (end stage renal disease) on dialysis (Chronic) History of hemiarthroplasty of left hip (Chronic) Hx of CABG (Chronic) Hyperlipidemia (Chronic) Hypertension (Chronic) ICD (implantable cardioverter-defibrillator) in place (Chronic) Noncompliance of patient with renal dialysis (Chronic) PAD (peripheral artery disease) (Chronic) PAF (paroxysmal atrial fibrillation) (Chronic) PVD (peripheral vascular disease) (Chronic) S/P mitral valve repair (Chronic) Status post coronary artery stent placement (Chronic) Status post percutaneous transluminal coronary angioplasty (Chronic) Type 2 diabetes mellitus (Chronic) Condition: Stable - Instructions Referrals: Yrn Torres MD [Primary Care Provider] - - Home Medications Comprehensive Discharge Medication List: Ambulatory Orders Aspirin [ASA -] 81 mg PO DAILY tab.chew 09/03/16 Atorvastatin Ca [Lipitor] 20 mg PO HS tablet 09/03/16 Isosorbide Mononitrate [Imdur -] 30 mg PO DAILY tab.sr.24h 09/03/16 Carvedilol [Coreg -] 12.5 mg PO BID #60 tablet 09/20/16 Gabapentin [Neurontin -] 100 mg PO DAILY capsule 09/20/16 Pantoprazole Sodium [Protonix -] 40 mg PO BID tablet.ec 09/20/16 Sevelamer Carbonate [Renvela -] 800 mg PO TIDCM tab 09/20/16 Tamsulosin HCl [Flomax -] 0.4 mg PO DAILY@0830 cap.er.24h 09/20/16 Warfarin Na [Coumadin -] 5 mg PO DAILY@1800 #60 tablet 09/20/16 Tramadol HCl [Ultram -] 50 mg PO Q6H PRN #20 tablet MDD 4 09/26/16 This patient is new to me today: No Emergency Visit: Yes ED Registration Date: 11/07/16 Care time: The patient presented to the Emergency Department on the above date and was hospitalized for further evaluation of their emergent condition. Critical Care patient: No - Discharge Referral Referred to [facility] Med P.C.: No
[2016-11-08] MEDS ORDERED: WARFARIN NA 5 MG TABLET (UD) PO SCH (18:00)
[2016-11-08] MEDS: ATORVASTATIN CA 20 MG TABLET (FP) PO SCH (21:47)
[2016-11-09] MEDS: traMADol HCL 50 MG TABLET PO PRN ×2 (02:57→17:57)
[2016-11-09] MEDS: INSULIN SLIDING SCALE (NOVOLOG) 1 VIAL SQ SCH ×2 (06:48→11:27)
[2016-11-09 07:54] LABS: INR 1.48 (0.82-1.09); PROTHROMBIN TIME (PATIENT) 16.4 SEC (9.98-11.88)
--- NOTE | 2016-11-09 09:31 | PN ---
Progress Note (short form) - Note Progress Note: s: c/o diffuse body aches (including chest pain), asking for dilaudid; no sob palps dizzy - Current Medication List Current Medications Generic Name Dose Route Start Last Admin Trade Name Freq PRN Reason Stop Dose Admin Apixaban 2.5 mg 11/08/16 10:00 11/08/16 21:46 Eliquis - PO 2.5 mg BID [facility] Administration Aspirin 81 mg 11/07/16 10:00 11/08/16 09:54 Asa - PO 81 mg DAILY [facility] Administration Atorvastatin Calcium 20 mg 11/07/16 22:00 11/08/16 21:47 Lipitor - PO 20 mg HS [facility] Administration Bacitracin 1 applic 11/08/16 10:00 11/08/16 21:47 Bacitracin - TP 1 applic BID [facility] Administration Carvedilol 12.5 mg 11/07/16 10:00 11/08/16 21:47 Coreg - PO 12.5 mg BID [facility] Administration Gabapentin 100 mg 11/07/16 10:00 11/08/16 09:55 Neurontin - PO 100 mg DAILY [facility] Administration Hydralazine HCl 50 mg 11/07/16 12:13 11/08/16 21:47 Apresoline - PO 50 mg BID [facility] Administration Insulin Aspart 1 vial 11/07/16 22:00 11/09/16 06:48 Novolog Vial Sliding Scale - SQ Not Given ACHS [facility] Protocol Isosorbide Mononitrate 30 mg 11/07/16 10:00 11/08/16 09:55 Imdur - PO 30 mg DAILY [facility] Administration Pantoprazole Sodium 40 mg 11/07/16 10:00 11/08/16 21:46 Protonix - PO 40 mg BID [facility] Administration Sevelamer Carbonate 800 mg 11/07/16 08:00 11/08/16 11:29 Renvela - PO 800 mg TIDCM [facility] Administration Tamsulosin HCl 0.4 mg 11/07/16 08:30 11/08/16 09:53 Flomax - PO 0.4 mg DAILY@0830 [facility] Administration Tramadol HCl 50 mg 11/07/16 06:53 11/09/16 02:57 Ultram - PO 50 mg Q6H PRN Administration PAIN - Objective Vital Signs: Vital Signs Period Temp Pulse Resp BP Sys/Hinds Pulse Ox Last 24 Hr 97.7 F-98.3 F 59-79 16-20 83-158/38-82 95 Constitutional: Yes: Well Nourished, No Distress, Calm Cardiovascular: Yes: Regular Rate and Rhythm, S1, S2. No: Gallop, Murmur; + chest wall tenderness Respiratory: Yes: Regular, CTA Bilaterally. No: Accessory Muscle Use, Rales, Wheezes Extremities: No: Cold Edema: No le edema Neurological: Yes: Alert. No: Seizure Psychiatric: No: Agitated no jaundice diaphoresis Labs: CBC, BMP 11/08/16 08:10 11/08/16 08:10 cxr: +chf ecg 11/06/16: a-v paced mibi 04/2016: moderate inferolateral fixed defect c/w infarct with inferolateral akinesia and LVEF 54%. 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 chronic body aches: -no suggestion of cardiac etiology (chest pain reproducible) -pain management per primary team sob, acute systolic chf (ICM): -sob minimal, pt only complaining of body aches now -evidence of mild pulm congestion on exam and cxr on admit -sob resolved s/p HD -volume mgmt via HD/UF -cont coreg for chf regimen. not on rickie/arb 2/2 hyperkalemia (per prior notes). cont imdur/hydralazine -s/p icd with nl fcn on ecg -pt admits he does not f/u with marine railway operator (only emmanuelle he says)--advised him it is critically important that have regular outpt f/u cp, cad s/p cabg, pci: -has hx of intermittent atypical cp -no signs acs here, trop negx3 -cont coreg, statin, imdur -recent mibi w/o ischemia -in pt with stable, chronic CAD and no recent stents, it is likely that bleeding risks of continuing ASA with AC are > benefits (ischemia prevention seems to be quite good with AC alone); however, would need input from vascular ( ? anti-PLT needed to improve LE MANAGER STRATEGY patency) and neuro (? had strokes despite being on AC in past and anti-PLT added) prior to stopping ASA in this particular pt hld: -cont statin htn: -cont current meds mv ring: -recent echo with only moderate MR pad: -cont statin, asa, bp control esrd: -cont hd per renal Anemia: -chronic, hgb at baseline -prior EGD showing multiple esophageal and gastric ulcers pafib: -cont coreg for rate control -CHADSVASC is 7 with hx cva so has indication for ac -by review of prior admits here, pt repeatedly noncompliant with meds and follow up. -based on subtherapeutic INR here again, he is not being adequately protected from recurrent cardioembolic risk/stroke. -hence he has proven that warfarin is not a safe option for him, and a strategy of optimizing his INR whenever he is in hospital but then sending him home on warfarin without adequte [id number] and inr f/u is not in his best interests -now changed to eliquis (2.5mg bid based on HD indication for wt <60 kg)
[2016-11-09] MEDS ORDERED: HYDROmorphone HCL CARPU-JECT 1 MG/1 ML DISP.SYRIN IM ONE (09:33)
[2016-11-09] MEDS: hydrALAZINE HCL 50 MG TABLET (FP) PO SCH (10:01)
[2016-11-09] MEDS: SEVELAMER CARBONATE 800 MG TAB (FP) PO SCH ×3 (10:01→11:34)
[2016-11-09] MEDS: ASPIRIN 81 MG CHEWABLE TABLETS PO SCH (10:01)
[2016-11-09] MEDS: APIXABAN 2.5 MG TABLET PO SCH (10:02)
[2016-11-09] MEDS: CARVEDILOL 12.5 MG TABLET (FP) PO SCH (10:02)
[2016-11-09] MEDS: GABAPENTIN 100 MG CAPSULE (FP) PO SCH (10:02)
[2016-11-09] MEDS: PANTOPRAZOLE 40 MG TABLET (FP) PO SCH (10:02)
[2016-11-09] MEDS: BACITRACIN 30 GM TUBE TOPICAL OINTMENT TP SCH (10:02)
[2016-11-09] MEDS: ISOSORBIDE MONONITRATE 30 MG TAB.SR.24H (FP) PO SCH (10:02)
[2016-11-09] MEDS: TAMSULOSIN HCL 0.4 MG CAP.ER.24H (FP) PO SCH (10:15)
--- NOTE | 2016-11-09 12:41 | PN ---
Progress Note, Physician Chief Complaint: Renal f/u Pt lying flat in bed in no distress C/O not getting enough analgesia He had the additional HD yesterday for fluid removal - Current Medication List Current Medications: Active Medications Apixaban (Eliquis -) 2.5 mg PO BID [facility] Last Admin: 11/09/16 10:02 Dose: 2.5 mg Aspirin (Asa -) 81 mg PO DAILY [facility] Last Admin: 11/09/16 10:01 Dose: 81 mg Atorvastatin Calcium (Lipitor -) 20 mg PO HS [facility] Last Admin: 11/08/16 21:47 Dose: 20 mg Bacitracin (Bacitracin -) 1 applic TP BID [facility] Last Admin: 11/09/16 10:02 Dose: 1 applic Carvedilol (Coreg -) 12.5 mg PO BID [facility] Last Admin: 11/09/16 10:02 Dose: 12.5 mg Gabapentin (Neurontin -) 100 mg PO DAILY [facility] Last Admin: 11/09/16 10:02 Dose: 100 mg Hydralazine HCl (Apresoline -) 50 mg PO BID [facility] Last Admin: 11/09/16 10:01 Dose: 50 mg Insulin Aspart (Novolog Vial Sliding Scale -) 1 vial SQ ACHS [facility] PRN Reason: Protocol Last Admin: 11/09/16 11:27 Dose: Not Given Isosorbide Mononitrate (Imdur -) 30 mg PO DAILY [facility] Last Admin: 11/09/16 10:02 Dose: 30 mg Pantoprazole Sodium (Protonix -) 40 mg PO BID [facility] Last Admin: 11/09/16 10:02 Dose: 40 mg Sevelamer Carbonate (Renvela -) 800 mg PO TIDCM [facility] Last Admin: 11/09/16 11:34 Dose: 800 mg Tamsulosin HCl (Flomax -) 0.4 mg PO DAILY@0830 [facility] Last Admin: 11/09/16 10:15 Dose: 0.4 mg Tramadol HCl (Ultram -) 50 mg PO Q6H PRN PRN Reason: PAIN Last Admin: 11/09/16 02:57 Dose: 50 mg - Objective Vital Signs: Vital Signs Temperature 97.9 F 11/09/16 10:00 Pulse Rate 68 11/09/16 10:00 Respiratory Rate 20 11/09/16 10:00 Blood Pressure 135/60 11/09/16 10:00 O2 Sat by Pulse Oximetry (%) 98 11/09/16 09:00 Constitutional: Yes: No Distress Cardiovascular: Yes: S1, S2, Other (SSEM) Respiratory: Yes: CTA Bilaterally Gastrointestinal: Yes: Soft, Distention. No: Tenderness, Rebound Edema: No Labs: CBC, BMP 11/08/16 08:10 11/08/16 08:10 INR, PTT INR 1.48 (0.82-1.09) H 11/09/16 06:45 Assessment/Plan Impression ESRD in non compliant pt that had hyperkalemia on admission CAD HTN Narcotic dependence Anemia S/P dyspnea DVT PAF S/P GI bleed Plan Non compliance with dialysis addressed with pt AC as outlined by cardiology Next HD 11/11 Dr Ramsey
[2016-11-09 13:59] VITALS: BP 112/48; PULSE 61; TEMP 97.7
--- NOTE | 2016-11-09 14:18 | PN ---
Physical Exam: SUBJECTIVE: Patient seen and examined, complaining of pain on his arms, given Dilaudid 0.5mg x 1. Awaiting transportation home. OBJECTIVE: GENERAL: The patient is awake, alert, and fully oriented, in no acute distress, mostly Mongolian speaking HEAD: periorbital edema improved EYES: PERRL, extraocular movements intact, sclera anicteric, conjunctiva clear. No ptosis. ENT: Ears normal, nares patent, oropharynx clear without exudates, moist mucous membranes. NECK: Trachea midline, full range of motion, supple. LUNGS: anterior lung sounds clear to auscultation. ABDOMEN: Soft, nontender, nondistended, normoactive bowel sounds, no guarding EXTREMITIES: Right hand with large scab, right forearm with open wound. Left arm edema improving, negative for DVT NEUROLOGICAL: Normal speech, gait not observed. PSYCH: Normal mood, normal affect. Vital Signs Period Temp Pulse Resp BP Sys/Hinds Pulse Ox Last 24 Hr 97.7 F-98.3 F 59-79 16-20 83-158/38-81 95-98 Laboratory Results - last 24 hr 11/08/16 11/09/16 11/09/16 21:51 06:01 06:45 INR 1.48 H POC Glucometer 108 125 11/09/16 11:25 INR POC Glucometer 136 Active Medications Generic Name Dose Route Start Last Admin Trade Name Freq PRN Reason Stop Dose Admin Apixaban 2.5 mg 11/08/16 10:00 11/09/16 10:02 Eliquis - PO 2.5 mg BID [facility] Administration Aspirin 81 mg 11/07/16 10:00 11/09/16 10:01 Asa - PO 81 mg DAILY [facility] Administration Atorvastatin Calcium 20 mg 11/07/16 22:00 11/08/16 21:47 Lipitor - PO 20 mg HS [facility] Administration Bacitracin 1 applic 11/08/16 10:00 11/09/16 10:02 Bacitracin - TP 1 applic BID [facility] Administration Carvedilol 12.5 mg 11/07/16 10:00 11/09/16 10:02 Coreg - PO 12.5 mg BID [facility] Administration Gabapentin 100 mg 11/07/16 10:00 11/09/16 10:02 Neurontin - PO 100 mg DAILY [facility] Administration Hydralazine HCl 50 mg 11/07/16 12:13 11/09/16 10:01 Apresoline - PO 50 mg BID [facility] Administration Insulin Aspart 1 vial 11/07/16 22:00 11/09/16 11:27 Novolog Vial Sliding Scale - SQ Not Given ACHS [facility] Protocol Isosorbide Mononitrate 30 mg 11/07/16 10:00 11/09/16 10:02 Imdur - PO 30 mg DAILY [facility] Administration Pantoprazole Sodium 40 mg 11/07/16 10:00 11/09/16 10:02 Protonix - PO 40 mg BID [facility] Administration Sevelamer Carbonate 800 mg 11/07/16 08:00 11/09/16 11:34 Renvela - PO 800 mg TIDCM [facility] Administration Tamsulosin HCl 0.4 mg 11/07/16 08:30 11/09/16 10:15 Flomax - PO 0.4 mg DAILY@0830 [facility] Administration Tramadol HCl 50 mg 11/07/16 06:53 11/09/16 02:57 Ultram - PO 50 mg Q6H PRN Administration PAIN ASSESSMENT/PLAN: Patient is a 66 year old male with a significant past medical history of ESRD ( Tues, Thurs, Sat), CAD, hyperlipidemia, Diabetes Mellitus, CHF, Paroxysmal Atrial Fibrillation, PAD, Right Arm DVT, CVA, Anemia, BPH, CABG, cardiac stents , AICD, left femur fracture ([facility] 10/2016). He presented to the ED on 11/06/2016 with right sided chest pain radiating to his left jaw and shortness of breath. Patient reported the chest pain had awoken him from sleep, and that he has been feeling weak. He reports having a fall recently. Patient reports his last dialysis was 11/05/16 at his outpatient facility. Had emergent dialysis on 11/07/2016 and on 11/08/2016. He was discharged yesterday but was unable to arrange an ambulette home. Awaiting for ambulance transportation today. Cardiology: Chest Pain - resolved Assessment/Plan. Has history of atypical chest pain, troponin negative x 3 On Coreq BID, ASA 81mg and Imdur Hyperlipidemia: Assessment/Plan: On Lipitor Hypertension - chronic Asessment/Plan: On Coreq, Imdur, Hydralazine Monitor BPs, titrate meds if remains hypertensive Paroxysmal Afib - chronic Assessment/Plan: Changed to Eliquis 2.5mg BID by Cardiology Pt is non compliant with Coumadin and INR follow up Pulmonary: Shortness of Breath - resolved Assessment/Plan: Tolerating room air, Lasix given in ER Monitor I&Os and daily weights : End Stage Renal disease - chronic Assessment/Plan: Emergent dialysis on 11/07/16 and again on 11/08/2016, next dialysis on 11/11/2016 at his outpatient facility. Endocrine: Diabetes mellitus - chronic Assessment/Plan: Monitor BGMs Visit type - Emergency Visit Emergency Visit: Yes ED Registration Date: 11/07/16 Care time: The patient presented to the Emergency Department on the above date and was hospitalized for further evaluation of their emergent condition. - New Patient This patient is new to me today: No - Critical Care Critical Care patient: No - Discharge Referral Referred to [facility] Med [facility] No
== END 2016-11-09 18:41 | disposition home or self-care (01) | DRG 682 ==
LOC: JER 18:22 → INTOOBSV 23:51 → JERBED 23:51 → UNDOADMOB 23:51 → JERBED 11-07 00:10 → OBSVTOIN 11-07 14:52 → J6S 11-07 17:01
PROVIDERS: ADMIT Internal Medicine; ATTEND Nurse Practitioner Family
PROC: 5A1D00Z (ICD-10-PCS; principal; 2016-11-07)
DX: I12.0 Hypertensive chronic kidney disease with stage 5 chronic kidney disease or end stage renal disease (principal); N18.6 End stage renal disease; I50.23 Acute on chronic systolic (congestive) heart failure; E11.22 Type 2 diabetes mellitus with diabetic chronic kidney disease; E78.5 Hyperlipidemia, unspecified; Z95.1 Presence of aortocoronary bypass graft; Z86.73 Personal history of transient ischemic attack (TIA), and cerebral infarction without residual deficits; Z95.0 Presence of cardiac pacemaker; I48.0 Paroxysmal atrial fibrillation; N40.0 Benign prostatic hyperplasia without lower urinary tract symptoms; R79.1 Abnormal coagulation profile; I25.10 Atherosclerotic heart disease of native coronary artery without angina pectoris; D64.9 Anemia, unspecified; Z91.15 Patient's noncompliance with renal dialysis; E87.5 Hyperkalemia
CPT/HCPCS: 36415; 70450-TC; 71010-TC; 73523-TC; 80048; 80053; 82550; 82553; 83735; 83880; 84100; 84484; 85025; 85610; 93005; 93010; 93971; 96372; 99281-25; 99283-25; 99285-25; G0378; J0885

== ENCOUNTER 2016-11-13 11:28 | Inpatient (IN) | payer MEDICARE, OTHER ==
[2016-11-13] MEDS ORDERED: NALOXONE HCL 0.4 MG/ML VIAL IVPUSH ONE (12:20)
[2016-11-13 12:21] VITALS: BMI 23.8
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
[2016-11-13 12:38] LABS: BASOPHIL 1.5 % (0-2.0); EOSINOPHIL 2.9 % (0-4.5); MCH 29.3 pg (25.7-33.7); MCHC 31.5 g/dl (32.0-35.9); MEAN CELL VOLUME 92.9 fl (80-96); NEUTROPHILS 73.7 % (42.8-82.8); PLATELET COUNT 133 K/MM3 (134-434); RDW 18.2 % (11.9-15.9); WHITE BLOOD COUNT 4.8 K/mm3 (4.0-10.0)
[2016-11-13 12:51] LABS: INR 1.25 (0.82-1.09); PROTHROMBIN TIME (PATIENT) 13.8 SEC (9.98-11.88)
[2016-11-13 12:53] LABS: ALBUMIN 2.7 g/dl (3.4-5.0); BILIRUBIN,TOTAL 0.4 mg/dL (0.2-1.0); CALCIUM 8.3 mg/dL (8.5-10.1); CREATININE 5.1 mg/dL (0.7-1.3); TOT PROT 6.5 g/dl (6.4-8.2)
[2016-11-13] MEDS ORDERED: LORAZEPAM CARPU-JECT 2 MG/ML DISP.SYRIN IVPUSH ONE (13:30)
--- NOTE | 2016-11-13 14:32 | HP ---
PCP: Gregory Dumont CHIEF COMPLAINT: Generalized pain HISTORY OF PRESENT ILLNESS: This is a 66-year-old man who presented to the ER today complaining of generalized pain. After arrival, as he was going to be evaluated, he became obtunded. He was treated with Narcan 0.8 mg IVP and he awoke. He was then confused and agitated. He was then treated with Ativan 1 mg IVP. He is awake, non-verbal and agitated. 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 AV fistula Allergies No Known Drug Allergies Allergy (Verified 11/13/16 12:18) HOME MEDICATIONS 3 Medication Instructions Recorded Aspirin [ASA -] 81 mg PO DAILY tab.chew 09/03/16 Atorvastatin Ca [Lipitor] 20 mg PO HS tablet 09/03/16 Isosorbide Mononitrate [Imdur -] 30 mg PO DAILY tab.sr.24h 09/03/16 Carvedilol [Coreg -] 12.5 mg PO BID #60 tablet 09/20/16 Gabapentin [Neurontin -] 100 mg PO DAILY capsule 09/20/16 Pantoprazole Sodium [Protonix -] 40 mg PO BID tablet.ec 09/20/16 Sevelamer Carbonate [Renvela -] 800 mg PO TIDCM tab 09/20/16 Tamsulosin HCl [Flomax -] 0.4 mg PO DAILY@0830 cap.er.24h 09/20/16 Tramadol HCl [Ultram -] 50 mg PO Q6H PRN #20 tablet MDD 4 09/26/16 Apixaban [Eliquis -] 2.5 mg PO BID #60 tablet 11/08/16 Hydralazine HCl [Apresoline -] 50 mg PO BID tablet 11/08/16 Insulin Sliding Scale [Novolog 1 vial SQ ACHS units 11/08/16 Vial Sliding Scale -] Social History: Smoking: Quit in 2013 Alcohol: None Drugs: None Recent Travel: No Family History Father - CVA Brother - DM, CAD REVIEW OF SYSTEMS Unable to obtain PHYSICAL EXAMINATION Vital Signs Period Temp Pulse Resp BP Sys/Hinds Pulse Ox Last 24 Hr 97.6 F 90 15 167/119 100 GENERAL: Awake, non-verbal, thrashing in bed. HEAD: Normal with no signs of trauma. EYES: Pupils equal, round and reactive to light, sclerae anicteric, conjunctivae clear. Ada-orbital and eyelid edema. EARS, NOSE, THROAT: Ears normal, nares patent, oropharynx not visualized. Moist mucous membranes. NECK: Supple without lymphadenopathy, JVD, or masses. LUNGS: Bilateral rhonchi. HEART: Regular rate and rhythm, normal S1 and S2 without murmur, rub or gallop. ABDOMEN: Soft, not distended, normoactive bowel sounds. No hepatomegaly or splenomegaly. MUSCULOSKELETAL: Unable to assess. UPPER EXTREMITIES: 2+ pulses, warm, well-perfused. No cyanosis. No clubbing. Cap refill <2 seconds. Right forearm AV fistula. (+) edema of both arms extending to his chest. LOWER EXTREMITIES: 2+ pulses, warm, well-perfused. No peripheral edema. NEUROLOGICAL: Unable to assess. PSYCHIATRIC: Unable to assess. SKIN: Warm, dry, normal turgor, no rashes or lesions noted. Laboratory Results - last 24 hr 11/13/16 11/13/16 11/13/16 12:23 12:23 12:23 WBC 4.8 RBC 2.79 L Hgb 8.2 L Hct 25.9 L MCV 92.9 MCHC 31.5 L RDW 18.2 H Plt Count 133 L MPV 9.0 Neutrophils % 73.7 Lymphocytes % 10.1 Monocytes % 11.8 H Eosinophils % 2.9 Basophils % 1.5 INR 1.25 H Sodium 140 Potassium 4.9 Chloride 101 Carbon Dioxide 30 Anion Gap 9 BUN 32 H D Creatinine 5.1 H D Creat Clearance w eGFR 11.37 Random Glucose 105 D Calcium 8.3 L Total Bilirubin 0.4 AST 26 ALT 11 L Alkaline Phosphatase 167 H B-Natriuretic Peptide 86331.19 H Total Protein 6.5 Albumin 2.7 L Chest x-ray: Improving congestion. EKG: Ventricular paced. ASSESSMENT/PLAN: This is a 66-year-old man with a history of ESRD on HD, CAD, HTN, hyperlipidemia , type 2 DM, chronic systolic heart failure, PAF, RUE DVT, PAD, CVA, anemia, BPH who came to the ER because of generalized pain, became obtunded, was treated with Narcan, and is now confused and combative. He is being admitted now for treatment of an emergent condition. 1. Acute encephalopathy - Cause not clear - Check head CT, urine drug screen 2. ESRD on HD - Nephrology consult for HD - Continue Renvela 3. 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 CAD, history of CABG and stent - Continue aspirin, Coreg, Lipitor, Imdur 5. Hyperlipidemia - Continue Lipitor 6. Type 2 diabetes mellitus - Fingersticks with Novolog sliding scale 7. Chronic systolic heart failure - Stable - Continue Coreg - HD for fluid management 8. Paroxysmal atrial fibrillation - Continue Eliquis 9. Peripheral artery disease 10. History of CVA 11. Anemia secondary to CKD 12. BPH - Continue Flomax 13. Hypertension - Continue Coreg, Hydralazine Visit type - Emergency Visit Emergency Visit: Yes ED Registration Date: 11/13/16 Care time: The patient presented to the Emergency Department on the above date and was hospitalized for further evaluation of their emergent condition. - New Patient This patient is new to me today: Yes Date on this admission: 11/13/16 - Critical Care Critical Care patient: No
[2016-11-13] MEDS ORDERED: ALBUTEROL SO4 0.083% IH SOL 2.5 MG/3 ML VIAL.NEB. NEB PRN (14:34)
[2016-11-13] MEDS ORDERED: ONDANSETRON 4 MG/2 ML VIAL IVPB PRN (14:34)
--- NOTE | 2016-11-13 15:56 | CONSULT ---
Consult Consult Specialty:: Nephrology Reason for Consultation:: ESRD on HD - History of Present Illness Chief Complaint: generalized pain History of Present Illness: Pt is a 66 year old male with pmhx of ESRD, DM, anemia, CVA, CAD, CABG, CHF, HTN , and a-fib who presents to the ER complaining of pain. He became obtunded while in the ER. He is now arousible. He was taken for CT head that was negative. His is at bedside and helped with history. She said he did take his meds earlier today before leaving the house. 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: CVA Cardio/Vascular: Yes: AFIB (paroxysmal), CAD (CABG, PCI/KAT), CHF, Deep Vein Thrombosis, HTN, Hyperlipdemia Renal/: Yes: Renal Failure, Hemodialysis Psych: Yes: Anxiety Endocrine: Yes: Diabetes Mellitus - Past Surgical History Past Surgical History: Yes: AICD, Amputation (right 3rd finger), CABG (3v CABG and mitral ring 2009 (GUADALUPE->LAD, SVG->LPL, SVG->D1 jump D2.), Stent - Alcohol/Substance Use Hx Alcohol Use: No History of Substance Use: reports: Prescription - Smoking History Smoking history: Never smoked Have you smoked in the past 12 months: No Aproximately how many cigarettes per day: 0 If you are a former smoker, when did you quit?: 2013 - Social History Usual Living Arrangement: With Spouse ADL: Independent History of Recent Travel: No Home Medications - Allergies Allergies/Adverse Reactions: Allergies Allergy/AdvReac Type Severity Reaction Status Date / Time No Known Drug Allergies Allergy Verified 11/13/16 12:18 - Home Medications Home Medications: Ambulatory Orders Aspirin [ASA -] 81 mg PO DAILY tab.chew 09/03/16 Atorvastatin Ca [Lipitor] 20 mg PO HS tablet 09/03/16 Isosorbide Mononitrate [Imdur -] 30 mg PO DAILY tab.sr.24h 09/03/16 Carvedilol [Coreg -] 12.5 mg PO BID #60 tablet 09/20/16 Gabapentin [Neurontin -] 100 mg PO DAILY capsule 09/20/16 Pantoprazole Sodium [Protonix -] 40 mg PO BID tablet.ec 09/20/16 Sevelamer Carbonate [Renvela -] 800 mg PO TIDCM tab 12/10/16 Tamsulosin HCl [Flomax -] 0.4 mg PO DAILY@0830 cap.er.24h 09/20/16 Tramadol HCl [Ultram -] 50 mg PO Q6H PRN #20 tablet MDD 4 09/26/16 Apixaban [Eliquis -] 2.5 mg PO BID #60 tablet 11/08/16 Hydralazine HCl [Apresoline -] 50 mg PO BID tablet 11/08/16 Insulin Sliding Scale [Novolog Vial Sliding Scale -] 1 vial SQ ACHS units 11/08 Family Disease History - Family Disease History Family Disease History: Diabetes: Brother, Heart Disease: Brother, Other: Father (Stroke) Review of Systems Unable to obtain ROS, reason: confused Physical Exam Vital Signs: Vital Signs Temperature 97.6 F 11/13/16 11:35 Pulse Rate 99 H 11/13/16 14:43 Respiratory Rate 20 11/13/16 14:43 Blood Pressure 147/71 11/13/16 14:43 O2 Sat by Pulse Oximetry (%) 100 11/13/16 14:43 Constitutional: Yes: Anxious Cardiovascular: Yes: S1, S2 Respiratory: Yes: CTA Bilaterally Gastrointestinal: Yes: Soft Renal/: Yes: Incontinence Musculoskeletal: Yes: Muscle Weakness Edema: Yes Wound/Incision: Yes: Open to air Psychiatric: Yes: Agitated Labs: Laboratory Tests 11/06/16 11/06/16 11/13/16 21:00 21:00 12:23 WBC 4.8 Hgb 8.8 L 8.2 L Plt Count 133 L Sodium 142 Potassium 5.2 H Chloride Carbon Dioxide Anion Gap BUN 35 H D Creatinine 5.9 H D 11/13/16 12:23 WBC Hgb Plt Count Sodium 140 Potassium 4.9 Chloride 101 Carbon Dioxide 30 Anion Gap 9 BUN 32 H D Creatinine 5.1 H D Imaging - Results Chest X-ray: Report Reviewed Cat Scan: Report Reviewed Assessment/Plan Current Medications Generic Name Dose Route Start Last Admin Trade Name Freq PRN Reason Stop Dose Admin Acetaminophen 650 mg 11/13/16 14:34 Tylenol - PO Q4H PRN FEVER OR PAIN Albuterol Sulfate 1 amp 11/13/16 14:34 Ventolin 0.083% Nebulizer Soln - NEB Q4H PRN SHORT OF BREATH/WHEEZING Apixaban 2.5 mg 11/13/16 22:00 Eliquis - PO BID [facility] Aspirin 81 mg 11/14/16 10:00 Asa - PO DAILY [facility] Atorvastatin Calcium 20 mg 11/13/16 22:00 Lipitor - PO HS [facility] Carvedilol 12.5 mg 11/13/16 22:00 Coreg - PO BID [facility] Gabapentin 100 mg 11/14/16 10:00 Neurontin - PO DAILY [facility] Hydralazine HCl 50 mg 11/13/16 22:00 Apresoline - PO BID [facility] Insulin Aspart 1 vial 11/13/16 16:30 Novolog Vial Sliding Scale - SQ ACHS [facility] Protocol Isosorbide Mononitrate 30 mg 11/14/16 10:00 Imdur - PO DAILY [facility] Ondansetron HCl 4 mg 11/13/16 14:34 Zofran Injection IVPB Q6H PRN NAUSEA Pantoprazole Sodium 40 mg 11/13/16 22:00 Protonix - PO BID [facility] Sevelamer Carbonate 800 mg 11/13/16 17:30 Renvela - PO TIDCM [facility] Tamsulosin HCl 0.4 mg 11/14/16 08:30 Flomax - PO DAILY@0830 [facility] Impression 1. ESRD 2. CAD 3. HTN 4. narcotic dependence 5. non compliance 6. pleural effusions 7. anemia 8. dyspnea 9. DVT 10. hx GI bleed 11. altered mental status Plan - will arrange for HD today as pt is on a TTS schedule - recommend holding narcotics and pain meds for now - avoid sedatives - ct head negative - will follow while in hospital
[2016-11-13] MEDS ORDERED: PT OWN MED DRAWER 7, Y5N ONE (21:29)
[2016-11-13] MEDS: PANTOPRAZOLE 40 MG TABLET (FP) PO SCH (21:31)
[2016-11-13] MEDS: APIXABAN 2.5 MG TABLET PO SCH (21:31)
[2016-11-13] MEDS: ATORVASTATIN CA 20 MG TABLET (FP) PO SCH (21:31)
[2016-11-13] MEDS: CARVEDILOL 12.5 MG TABLET (FP) PO SCH (21:31)
[2016-11-13] MEDS: hydrALAZINE HCL 50 MG TABLET (FP) PO SCH (21:31)
[2016-11-13] MEDS: ACETAMINOPHEN 325 MG TABLET (FP) PO PRN (21:31)
[2016-11-13] MEDS: INSULIN SLIDING SCALE (NOVOLOG) 1 VIAL SQ SCH (21:44)
[2016-11-14] MEDS: ACETAMINOPHEN 325 MG TABLET (FP) PO PRN ×4 (05:34→21:42)
[2016-11-14 08:24] LABS: BASOPHIL 1.2 % (0-2.0); EOSINOPHIL 1.2 % (0-4.5); MCH 29.4 pg (25.7-33.7); MEAN CELL VOLUME 92.1 fl (80-96); NEUTROPHILS 75.6 % (42.8-82.8); PLATELET COUNT 137 K/MM3 (134-434); RDW 18.1 % (11.9-15.9); WHITE BLOOD COUNT 5.9 K/mm3 (4.0-10.0)
[2016-11-14 08:45] LABS: CALCIUM 8.5 mg/dL (8.5-10.1); CREATININE 3.2 mg/dL (0.7-1.3)
[2016-11-14 08:47] LABS: TROPONIN I 0.18 ng/ml (0.00-0.05)
[2016-11-14] MEDS: TAMSULOSIN HCL 0.4 MG CAP.ER.24H (FP) PO SCH (09:04)
[2016-11-14] MEDS: SEVELAMER CARBONATE 800 MG TAB (FP) PO SCH ×3 (09:04→17:32)
[2016-11-14] MEDS: PANTOPRAZOLE 40 MG TABLET (FP) PO SCH ×2 (09:04→21:43)
--- NOTE | 2016-11-14 09:46 | PN ---
Physical Exam: SUBJECTIVE: Patient seen and examined. Denies chest pain at this time. Sleepy but arousable, calm. Complains of left hip pain. Agitated overnight and earlier today, tried to pull out permacath. Asking for to visit him. Denies that he took pills to try to kill himself. OBJECTIVE: Vital Signs Period Temp Pulse Resp BP Sys/Hinds Pulse Ox Last 24 Hr 97.5 F-98.8 F 65-106 18-22 113-184/71-119 100-100 GENERAL: The patient is sleepy but arousable. Oriented to person and place. HEAD: Normal with no signs of trauma. EYES: PERRL, extraocular movements intact, sclera anicteric, conjunctiva clear. No ptosis. ENT: Ears normal, nares patent, oropharynx clear without exudates, moist mucous membranes. NECK: Trachea midline, full range of motion, supple. LUNGS: Breath sounds equal, clear to auscultation bilaterally, no wheezes, no crackles, no accessory muscle use. HEART: Regular rate and rhythm, S1, S2 without murmur, rub or gallop. ABDOMEN: Soft, nontender, nondistended, normoactive bowel sounds, no guarding, no rebound, no hepatosplenomegaly, no masses. EXTREMITIES: 2+ pulses, warm, well-perfused, no edema. NEUROLOGICAL: Cranial nerves II through XII grossly intact. Normal speech, gait not observed. PSYCH: Normal mood, normal affect. SKIN: Warm, dry, normal turgor, no rashes or lesions noted Laboratory Results - last 24 hr 11/13/16 11/14/16 11/14/16 21:42 05:55 07:45 WBC 5.9 RBC 3.15 L Hgb 9.3 L D Hct 29.0 L MCV 92.1 MCHC 32.0 RDW 18.1 H Plt Count 137 MPV 9.0 Neutrophils % 75.6 Lymphocytes % 9.8 Monocytes % 12.2 H Eosinophils % 1.2 Basophils % 1.2 Sodium Potassium Chloride Carbon Dioxide Anion Gap BUN Creatinine POC Glucometer 114 106 Random Glucose Calcium Troponin I 11/14/16 07:45 WBC RBC Hgb Hct MCV MCHC RDW Plt Count MPV Neutrophils % Lymphocytes % Monocytes % Eosinophils % Basophils % Sodium 143 Potassium 4.0 Chloride 103 Carbon Dioxide 28 Anion Gap 12 BUN 15 D Creatinine 3.2 H D POC Glucometer Random Glucose 94 Calcium 8.5 Troponin I 0.18 H D Active Medications Generic Name Dose Route Start Last Admin Trade Name Jaxonq PRN Reason Stop Dose Admin Acetaminophen 650 mg 11/13/16 14:34 11/14/16 05:34 Tylenol - PO 650 mg Q4H PRN Administration FEVER OR PAIN Albuterol Sulfate 1 amp 11/13/16 14:34 Ventolin 0.083% Nebulizer Soln - NEB Q4H PRN SHORT OF BREATH/WHEEZING Apixaban 2.5 mg 11/13/16 22:00 11/13/16 21:31 Eliquis - PO 2.5 mg BID [facility] Administration Aspirin 81 mg 11/14/16 10:00 Asa - PO DAILY [facility] Atorvastatin Calcium 20 mg 11/13/16 22:00 11/13/16 21:31 Lipitor - PO 20 mg HS [facility] Administration Carvedilol 12.5 mg 11/13/16 22:00 11/13/16 21:31 Coreg - PO 12.5 mg BID [facility] Administration Gabapentin 100 mg 11/14/16 10:00 Neurontin - PO DAILY [facility] Hydralazine HCl 50 mg 11/13/16 22:00 11/13/16 21:31 Apresoline - PO 50 mg BID [facility] Administration Insulin Aspart 1 vial 11/13/16 16:30 11/13/16 21:44 Novolog Vial Sliding Scale - SQ Not Given ACHS [facility] Protocol Isosorbide Mononitrate 30 mg 11/14/16 10:00 Imdur - PO DAILY [facility] Ondansetron HCl 4 mg 11/13/16 14:34 Zofran Injection IVPB Q6H PRN NAUSEA Pantoprazole Sodium 40 mg 11/13/16 22:00 11/14/16 09:04 Protonix - PO 40 mg BID [facility] Administration Sevelamer Carbonate 800 mg 11/13/16 17:30 11/14/16 09:04 Renvela - PO 800 mg TIDCM [facility] Administration Tamsulosin HCl 0.4 mg 11/14/16 08:30 11/14/16 09:04 Flomax - PO 0.4 mg DAILY@0830 [facility] Administration ASSESSMENT/PLAN 66 year-old man with a PMH of ESRD on HD, CAD s/p CABG s/p stent s/p PPM/AICD, chronic systolic heart failure, PAF, h/o RUE DVT, PAD, CVA, anemia, BPH, and left hip fracture s/p hemiarthroplasty. Patient came to ED with a complaint of generalized pain but became obtunded, mental status improved after Narcan administration. This morning reported chest pain. Chest pain --troponin #1 0.18, troponin #2 0.18, troponin #3 pending --echo pending --continue Eliquis, ASA, beta ruth, statin --seen by cardiology Acute encephalopathy --unclear etiology, urine drug screen +opiates but patient on routine pain meds --had HD yesterday --mental status improved today; patient is known to me and he is at baseline mental status --seen by psych, no indication for meds Left hip/leg pain s/p left hip hemiarthroplasty --has refused physical therapy since surgery ESRD on HD --HD tomorrow --continued Renvela --renal following CAD s/p CABG s/p PPM/AICD --ECG shows paced rhythm @ 70 --continue ASA, carvedilol, Lipitor, Imdur Hypertension --continue carvedilol, hydralazine h/o RUE DVT --questionable compliance with meds at home --Eliquis started on admission Hyperlipidemia - Continued Lipitor Type 2 diabetes mellitus - Fingersticks with Novolog sliding scale Chronic systolic heart failure - Stable Paroxysmal atrial fibrillation --rate is well-controlled --on Eliquis h/o right right arm DVT --continue coumadin Peripheral artery disease --stable Anemia secondary to CKD --stable BPH --Continue Flomax F/E/N Fluids: PO intake adequate Electrolytes: replete as indicated Nutrition: renal diet DVT prophylaxis: on Eliquis Dispo: continues to require inpatient care. Full Code. Visit type - Emergency Visit Emergency Visit: Yes ED Registration Date: 11/13/16 Care time: The patient presented to the Emergency Department on the above date and was hospitalized for further evaluation of their emergent condition. - New Patient This patient is new to me today: Yes Date on this admission: 11/14/16 - Critical Care Critical Care patient: No
[2016-11-14] MEDS ORDERED: PT OWN MED DRAWER 7, Y5N ONE (10:08)
[2016-11-14] MEDS: ISOSORBIDE MONONITRATE 30 MG TAB.SR.24H (FP) PO SCH (10:10)
[2016-11-14] MEDS: ASPIRIN 81 MG CHEWABLE TABLETS PO SCH (10:10)
[2016-11-14] MEDS: hydrALAZINE HCL 50 MG TABLET (FP) PO SCH ×2 (10:11→21:43)
[2016-11-14] MEDS: APIXABAN 2.5 MG TABLET PO SCH ×2 (10:11→21:43)
[2016-11-14] MEDS: GABAPENTIN 100 MG CAPSULE (FP) PO SCH (10:11)
[2016-11-14] MEDS: CARVEDILOL 12.5 MG TABLET (FP) PO SCH ×2 (10:11→21:43)
--- NOTE | 2016-11-14 10:22 | EKG ---
Test Reason : Blood Pressure : / mmHG Vent. Rate : 095 BPM Atrial Rate : 095 BPM P-R Int : 000 ms QRS Dur : 156 ms QT Int : 412 ms P-R-T Axes : 066 051 000 degrees QTc Int : 517 ms Ventricular-paced rhythm WITH FREQUENT PREMATURE VENTRICULAR COMPLEXES Biventricular pacemaker detected Confirmed by GERBER ONEILL MD ([id number]) on 11/14/2016 10:22:50 AM Referred By: Confirmed By:GERBER ONEILL MD
--- NOTE | 2016-11-14 10:41 | EKG ---
Test Reason : Blood Pressure : / mmHG Vent. Rate : 118 BPM Atrial Rate : 089 BPM P-R Int : 000 ms QRS Dur : 168 ms QT Int : 274 ms P-R-T Axes : 000 091 066 degrees QTc Int : 384 ms POOR DATA QUALITY, INTERPRETATION MAY BE ADVERSELY AFFECTED BASELINE ARTIFACT Ventricular-paced rhythm Confirmed by GERBER ONEILL MD ([id number]) on 11/14/2016 10:41:28 AM Referred By: Confirmed By:GERBER ONEILL MD
[2016-11-14 10:43] LABS: URINE MARIJUANA THC NEGATIVE ng/ml (CUTOFF=50)
[2016-11-14] MEDS: INSULIN SLIDING SCALE (NOVOLOG) 1 VIAL SQ SCH ×3 (13:30→21:41)
--- NOTE | 2016-11-14 15:37 | CON.PSY ---
Psychiatry Consult Chief Complaint: I fell, I dont have any psych problem - Previous Psychiatric Treatment Outpatient: None Inpatient: None - Previous Substance Abuse Treatment Outpatient: None Inpatient: None - Reason for Previous Treatment Reason for Previous Treatment: Heroin or Other Narcotics - Current Medications Current Medications: Active Medications Acetaminophen (Tylenol -) 650 mg PO Q4H PRN PRN Reason: FEVER OR PAIN Last Admin: 11/14/16 13:30 Dose: 650 mg Albuterol Sulfate (Ventolin 0.083% Nebulizer Soln -) 1 amp NEB Q4H PRN PRN Reason: SHORT OF BREATH/WHEEZING Apixaban (Eliquis -) 2.5 mg PO BID [facility] Last Admin: 11/14/16 10:11 Dose: 2.5 mg Aspirin (Asa -) 81 mg PO DAILY [facility] Last Admin: 11/14/16 10:10 Dose: 81 mg Atorvastatin Calcium (Lipitor -) 20 mg PO HS [facility] Last Admin: 11/13/16 21:31 Dose: 20 mg Carvedilol (Coreg -) 12.5 mg PO BID [facility] Last Admin: 11/14/16 10:11 Dose: 12.5 mg Gabapentin (Neurontin -) 100 mg PO DAILY [facility] Last Admin: 11/14/16 10:11 Dose: 100 mg Hydralazine HCl (Apresoline -) 50 mg PO BID [facility] Last Admin: 11/14/16 10:11 Dose: 50 mg Insulin Aspart (Novolog Vial Sliding Scale -) 1 vial SQ ACHS [facility] PRN Reason: Protocol Last Admin: 11/14/16 13:30 Dose: Not Given Isosorbide Mononitrate (Imdur -) 30 mg PO DAILY [facility] Last Admin: 11/14/16 10:10 Dose: 30 mg Ondansetron HCl (Zofran Injection) 4 mg IVPB Q6H PRN PRN Reason: NAUSEA Pantoprazole Sodium (Protonix -) 40 mg PO BID [facility] Last Admin: 11/14/16 09:04 Dose: 40 mg Sevelamer Carbonate (Renvela -) 800 mg PO TIDCM [facility] Last Admin: 11/14/16 13:20 Dose: Not Given Tamsulosin HCl (Flomax -) 0.4 mg PO DAILY@0830 [facility] Last Admin: 11/14/16 09:04 Dose: 0.4 mg - Allergies Allergies: Allergies Allergy/AdvReac Type Severity Reaction Status Date / Time No Known Drug Allergies Allergy Verified 11/13/16 12:18 - Current Living Status Usual Living Arrangement: With Spouse - Current Mental Status Evaluation Appearance: Disheveled Attitude: Guarded - Affect Affect: Constrictive Appropriateness: Appropriate to Content - Mood Mood: Euthymic - Speech/Language Expressive: Coherent - Psychomotor Activity Psychomotor Activity: Slowed - Thought Process Thought Process: Circumstantial - Thought Content Hallucinations: Absent Delusions: Absent - Self Perception Self Perception: No Impairment - Cognition Attention: Alert Orientation: Time Memory, Immediate Recall: Intact Memory, Short Term: 2/3 Memory, Remote with Promptin/3 - Concentration Serial Sevens Intact: No Simple Calculations Intact: No - Abstraction Proverb Interpretation: Intact Judgement: Moderately Impaired - Insight Insight: Impaired - Impulse Control Impulse Control: Minimally Impaired - Suicidal Ideation Suicidal Ideation: No - Homicidal Ideation Homicidal Ideation: No Assessment/Plan No psych meds needed.
--- NOTE | 2016-11-14 15:39 | CON.CARD ---
Consult Consult Specialty:: cardiology - History of Present Illness History of Present Illness: Patient is a 66 year old male with significant medical hx of ESRD(HD T, Th, and Sat.), DM, anemia, CVA, CAD s/p pacemaker, s/p CABG (GUADALUPE to LAD, SVG to LPL, jump graft to D1/D2), history of PCIs (KAT to left circumflex, prior stents to LAD, LPL and LPDA), mitral annuloplasty ring, PAF; systolic CHF--> ICD; s/p mitral annuloplasty ring, HTN, HLD, DVT, PAD s/p multiple LE angioplasties/ stents, and GI bleed, who presents to the emergency department for generalized pain since yesterday. Between triage and nurse evaluation patient became obtunded, although his initial complaint was pain. 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: CVA Cardio/Vascular: Yes: AFIB (paroxysmal), CAD (CABG, PCI/KAT), CHF, Deep Vein Thrombosis, HTN, Hyperlipdemia Renal/: Yes: Renal Failure, Hemodialysis Heme/Onc: Yes: Anemia Psych: Yes: Anxiety Endocrine: Yes: Diabetes Mellitus - Past Surgical History Past Surgical History: Yes: AICD, Amputation (right 3rd finger), CABG (3v CABG and mitral ring 2008 (GUADALUPE->LAD, SVG->LPL, SVG->D1 jump D2.), Stent Additional Surgical History: ICD - Alcohol/Substance Use Hx Alcohol Use: No History of Substance Use: reports: Prescription - Smoking History Smoking history: Former smoker Have you smoked in the past 12 months: No Aproximately how many cigarettes per day: 0 If you are a former smoker, when did you quit?: 2013 - Social History Usual Living Arrangement: With Spouse ADL: Independent History of Recent Travel: No Home Medications - Allergies Allergies/Adverse Reactions: Allergies Allergy/AdvReac Type Severity Reaction Status Date / Time No Known Drug Allergies Allergy Verified 11/13/16 12:18 - Home Medications Home Medications: Ambulatory Orders Aspirin [ASA -] 81 mg PO DAILY tab.chew 09/03/16 Atorvastatin Ca [Lipitor] 20 mg PO HS tablet 09/03/16 Isosorbide Mononitrate [Imdur -] 30 mg PO DAILY tab.sr.24h 09/03/16 Carvedilol [Coreg -] 12.5 mg PO BID #60 tablet 09/20/16 Gabapentin [Neurontin -] 100 mg PO DAILY capsule 09/20/16 Pantoprazole Sodium [Protonix -] 40 mg PO BID tablet.ec 09/20/16 Sevelamer Carbonate [Renvela -] 800 mg PO TIDCM tab 09/20/16 Tamsulosin HCl [Flomax -] 0.4 mg PO DAILY@0830 cap.er.24h 09/20/16 Tramadol HCl [Ultram -] 50 mg PO Q6H PRN #20 tablet MDD 4 09/26/16 Apixaban [Eliquis -] 2.5 mg PO BID #60 tablet 11/08/16 Hydralazine HCl [Apresoline -] 50 mg PO BID tablet 11/08/16 Insulin Sliding Scale [Novolog Vial Sliding Scale -] 1 vial SQ ACHS units 11/08 Family Disease History - Family Disease History Family Disease History: Diabetes: Brother, Heart Disease: Brother, Other: Father (Stroke) Review of Systems - Review of Systems Constitutional: reports: Lethargy, Weakness Eyes: reports: No Symptoms HENT: reports: No Symptoms Neck: reports: Decreased ROM Cardiovascular: reports: No Symptoms Respiratory: reports: SOB on Exertion Gastrointestinal: reports: Nausea Genitourinary: reports: No Symptoms Breasts: reports: No Symptoms Reported Musculoskeletal: reports: Muscle Weakness Integumentary: reports: Bruising Neurological: reports: Weakness Psychiatric: reports: Anxiety - Risk Factors Known Risk Factors: Yes: Age, Diabetes Mellitus, Gender, Hypercholesterolemia, Physical Inactivity, Prior NC /Emb Stroke, Other (systolic CHF; CAD/s/p CABG; PAF) Vital Signs: Vital Signs Temperature 97.5 F L 11/14/16 08:03 Pulse Rate 74 11/14/16 14:00 Respiratory Rate 20 11/14/16 14:00 Blood Pressure 134/69 11/14/16 14:00 O2 Sat by Pulse Oximetry (%) 98 11/14/16 09:00 Constitutional: Yes: Anxious, Thin Eyes: Yes: WNL HENT: Yes: WNL Neck: Yes: WNL Respiratory: Yes: Regular Gastrointestinal: Yes: Soft Renal/: No: Anuria JVD: Yes Carotid Bruit: No PMI: Displaced Heart Sounds: Yes: S1 (varies in intensity), Split S2 Murmur: Yes: Systolic Murmur, Grade 2 Musculoskeletal: Yes: Muscle Weakness Extremities: Yes: Amputation (right middle finger) Edema: No Peripheral Pulses WNL: No Peripheral Pulses: 1+ Left Doralis Pedis, 1+ Right Dorsalis Pedis Integumentary: Yes: Bruising Neurological: Yes: Confusion, Lethargy, Weakness Psychiatric: Yes: Other (?opioid dependence) - Other Data Labs, Other Data: CBC, BMP 11/14/16 07:45 11/14/16 07:45 INR, PTT INR 1.25 (0.82-1.09) H 11/13/16 12:23 Troponin, BNP 11/14/16 11/14/16 07:45 13:40 Troponin I 0.18 H D 0.18 H Troponin, BNP 11/14/16 11/14/16 07:45 13:40 Troponin I 0.18 H D 0.18 H Abnormal Lab Results 11/14/16 11/14/16 11/14/16 07:45 07:45 13:40 RBC 3.15 L Hgb 9.3 L D Hct 29.0 L RDW 18.1 H Monocytes % 12.2 H Creatinine 3.2 H D Troponin I 0.18 H D 0.18 H Ejection Fraction %: LVEF < 40 % Imaging - Results Chest X-ray: Image Reviewed (improving congestion compared to a week ago) EKG: Image Reviewed (ventricular pacing) Problem List - Problems (1) DVT prophylaxis Code(s): [id number] - (2) Fluid overload Code(s): E87.70 - FLUID OVERLOAD, UNSPECIFIED Qualifiers: Hypervolemia type: unspecified Qualified Code(s): E87.70 - Fluid overload, unspecified (3) Hyperkalemia, diminished renal excretion Code(s): E87.5 - HYPERKALEMIA (4) Opiate or related narcotic overdose Code(s): T40.601A - POISONING BY UNSP NARCOTICS, ACCIDENTAL, INIT Qualifiers: Encounter type: initial encounter Injury intent: accidental or unintentional Qualified Code(s): T40.601A - Poisoning by unspecified narcotics, accidental (unintentional), initial encounter (5) Unable to ambulate Assessment/Plan: F/u with physical rehabilitation. Code(s): R26.2 - DIFFICULTY IN WALKING, NOT ELSEWHERE CLASSIFIED (6) Anemia Code(s): D64.9 - ANEMIA, UNSPECIFIED Qualifiers: (7) BPH (benign prostatic hypertrophy) Code(s): N40.0 - BENIGN PROSTATIC HYPERPLASIA WITHOUT LOWER URINRY TRACT SYMP (8) Chronic pain disorder Code(s): G89.4 - CHRONIC PAIN SYNDROME (9) Coronary artery disease Code(s): I25.10 - ATHSCL HEART DISEASE OF [place] CORONARY ARTERY W/O ANG PCTRS Qualifiers: Coronary Disease-Associated Artery/Lesion type: [place] artery [place] vs. transplanted heart: [place] heart Associated angina: without angina Qualified Code(s): I25.10 - Atherosclerotic heart disease of [place] coronary artery without angina pectoris (10) Dependency on pain medication Code(s): F19.20 - OTHER PSYCHOACTIVE SUBSTANCE DEPENDENCE, UNCOMPLICATED (11) ESRD (end stage renal disease) on dialysis Assessment/Plan: HD schedule per neprhologist. Code(s): N18.6 - END STAGE RENAL DISEASE Z99.2 - DEPENDENCE ON RENAL DIALYSIS (12) Hx of CABG Code(s): Z95.1 - PRESENCE OF AORTOCORONARY BYPASS GRAFT (13) Hyperlipidemia Assessment/Plan: On atorvastatin. Code(s): E78.5 - HYPERLIPIDEMIA, UNSPECIFIED Qualifiers: Hyperlipidemia type: pure hypercholesterolemia Qualified Code(s): E78.0 - Pure hypercholesterolemia (14) Hypertension Assessment/Plan: On carvedilol, hydralazine, and Imdur. Code(s): I10 - ESSENTIAL (PRIMARY) HYPERTENSION Qualifiers: Hypertension type: essential hypertension Qualified Code(s): I10 - Essential (primary) hypertension (15) ICD (implantable cardioverter-defibrillator) in place Code(s): Z95.810 - PRESENCE OF AUTOMATIC (IMPLANTABLE) CARDIAC DEFIBRILLATOR (16) PAD (peripheral artery disease) Code(s): I73.9 - PERIPHERAL VASCULAR DISEASE, UNSPECIFIED (17) PAF (paroxysmal atrial fibrillation) Assessment/Plan: On carvediolol for HR control. On apixaban for AC; compliance is crucial, but has been an issue in the past. Code(s): I48.0 - PAROXYSMAL ATRIAL FIBRILLATION (18) PVD (peripheral vascular disease) Code(s): I73.9 - PERIPHERAL VASCULAR DISEASE, UNSPECIFIED (19) S/P mitral valve repair Assessment/Plan: ring annuloplasty; f/u ECHO. Code(s): Z98.89 - OTHER SPECIFIED POSTPROCEDURAL STATES * DO NOT USE * (20) Status post coronary artery stent placement Code(s): Z95.5 - PRESENCE OF CORONARY ANGIOPLASTY IMPLANT AND GRAFT (21) Type 2 diabetes mellitus Code(s): E11.9 - TYPE 2 DIABETES MELLITUS WITHOUT COMPLICATIONS Qualifiers: Diabetes mellitus complication status: with kidney complications Diabetes mellitus complication detail: with chronic kidney disease Chronic kidney disease stage: on chronic dialysis (22) Low back pain Code(s): M54.5 - LOW BACK PAIN Qualifiers: Chronicity: chronic Back pain laterality: left Sciatica presence: without sciatica Qualified Code(s): M54.5 - Low back pain (24) Acute on chronic systolic CHF (congestive heart failure) Assessment/Plan: On carvedilol, hydralazine+Imdur, (apparently unable to tolerate ACEI, ARB, or spinronolactone: hx hyperkalemia). F/u HR and BP, volume status post-HD, electrolytes. Mild TNI elevation (0.18) likely from CHF, additional nonischemis sources; stress Persantine MIBI reportedly without ischemia. F/u ECHO for LVEF, valve status. Pt has ICD; f/u interrogation (order, if not done recently). Code(s): I50.23 - ACUTE ON CHRONIC SYSTOLIC (CONGESTIVE) HEART FAILURE (25) Diabetes Code(s): E11.9 - TYPE 2 DIABETES MELLITUS WITHOUT COMPLICATIONS
--- NOTE | 2016-11-14 17:20 | PN ---
Progress Note, Physician History of Present Illness: Pt seen and examined at bedside. He is more awake and alert than he was yesterday. He denies shortness of breath. - Current Medication List Current Medications: Active Medications Acetaminophen (Tylenol -) 650 mg PO Q4H PRN PRN Reason: FEVER OR PAIN Last Admin: 11/14/16 13:30 Dose: 650 mg Albuterol Sulfate (Ventolin 0.083% Nebulizer Soln -) 1 amp NEB Q4H PRN PRN Reason: SHORT OF BREATH/WHEEZING Apixaban (Eliquis -) 2.5 mg PO BID [facility] Last Admin: 11/14/16 10:11 Dose: 2.5 mg Aspirin (Asa -) 81 mg PO DAILY [facility] Last Admin: 11/14/16 10:10 Dose: 81 mg Atorvastatin Calcium (Lipitor -) 20 mg PO HS [facility] Last Admin: 11/13/16 21:31 Dose: 20 mg Carvedilol (Coreg -) 12.5 mg PO BID [facility] Last Admin: 11/14/16 10:11 Dose: 12.5 mg Gabapentin (Neurontin -) 100 mg PO DAILY [facility] Last Admin: 11/14/16 10:11 Dose: 100 mg Hydralazine HCl (Apresoline -) 50 mg PO BID [facility] Last Admin: 11/14/16 10:11 Dose: 50 mg Insulin Aspart (Novolog Vial Sliding Scale -) 1 vial SQ ACHS [facility] PRN Reason: Protocol Last Admin: 11/14/16 13:30 Dose: Not Given Isosorbide Mononitrate (Imdur -) 30 mg PO DAILY [facility] Last Admin: 11/14/16 10:10 Dose: 30 mg Ondansetron HCl (Zofran Injection) 4 mg IVPB Q6H PRN PRN Reason: NAUSEA Pantoprazole Sodium (Protonix -) 40 mg PO BID [facility] Last Admin: 11/14/16 09:04 Dose: 40 mg Sevelamer Carbonate (Renvela -) 800 mg PO TIDCM [facility] Last Admin: 11/14/16 13:20 Dose: Not Given Tamsulosin HCl (Flomax -) 0.4 mg PO DAILY@0830 [facility] Last Admin: 11/14/16 09:04 Dose: 0.4 mg - Objective Vital Signs: Vital Signs Temperature 97.5 F L 11/14/16 08:03 Pulse Rate 74 11/14/16 14:00 Respiratory Rate 20 11/14/16 14:00 Blood Pressure 134/69 11/14/16 14:00 O2 Sat by Pulse Oximetry (%) 98 11/14/16 09:00 Constitutional: Yes: Calm Eyes: Yes: Conjunctiva Clear HENT: Yes: Atraumatic Cardiovascular: Yes: S1, S2 Respiratory: Yes: On Nasal O2 Gastrointestinal: Yes: Soft Genitourinary: Yes: Incontinence Musculoskeletal: Yes: Muscle Weakness Edema: Yes Edema: LUE: 1+, RUE: 1+ Neurological: Yes: Oriented Psychiatric: Yes: Oriented Labs: CBC, BMP 11/14/16 07:45 11/14/16 07:45 INR, PTT INR 1.25 (0.82-1.09) H 11/13/16 12:23 Assessment/Plan Current Medications Generic Name Dose Route Start Last Admin Trade Name Freq PRN Reason Stop Dose Admin Acetaminophen 650 mg 11/13/16 14:34 11/14/16 13:30 Tylenol - PO 650 mg Q4H PRN Administration FEVER OR PAIN Albuterol Sulfate 1 amp 11/13/16 14:34 Ventolin 0.083% Nebulizer Soln - NEB Q4H PRN SHORT OF BREATH/WHEEZING Apixaban 2.5 mg 11/13/16 22:00 11/14/16 10:11 Eliquis - PO 2.5 mg BID [facility] Administration Aspirin 81 mg 11/14/16 10:00 11/14/16 10:10 Asa - PO 81 mg DAILY [facility] Administration Atorvastatin Calcium 20 mg 11/13/16 22:00 11/13/16 21:31 Lipitor - PO 20 mg HS [facility] Administration Carvedilol 12.5 mg 11/13/16 22:00 11/14/16 10:11 Coreg - PO 12.5 mg BID [facility] Administration Gabapentin 100 mg 11/14/16 10:00 11/14/16 10:11 Neurontin - PO 100 mg DAILY [facility] Administration Hydralazine HCl 50 mg 11/13/16 22:00 11/14/16 10:11 Apresoline - PO 50 mg BID [facility] Administration Insulin Aspart 1 vial 11/13/16 16:30 11/14/16 13:30 Novolog Vial Sliding Scale - SQ Not Given ACHS [facility] Protocol Isosorbide Mononitrate 30 mg 11/14/16 10:00 11/14/16 10:10 Imdur - PO 30 mg DAILY [facility] Administration Ondansetron HCl 4 mg 11/13/16 14:34 Zofran Injection IVPB Q6H PRN NAUSEA Pantoprazole Sodium 40 mg 11/13/16 22:00 11/14/16 09:04 Protonix - PO 40 mg BID [facility] Administration Sevelamer Carbonate 800 mg 11/13/16 17:30 11/14/16 13:20 Renvela - PO Not Given TIDCM [facility] Tamsulosin HCl 0.4 mg 11/14/16 08:30 11/14/16 09:04 Flomax - PO 0.4 mg DAILY@0830 [facility] Administration Impression 1. ESRD 2. CAD 3. HTN 4. narcotic dependence 5. non compliance 6. pleural effusions 7. anemia 8. dyspnea 9. DVT 10. hx GI bleed 11. altered mental status Plan - will arrange for HD in am - mental status is improved today - avoid sedatives if possible - cont current meds - will follow while in hospital
[2016-11-14 21:40] LABS: URINE APPEARANCE CLEAR; URINE BILIRUBIN NEGATIVE (NEGATIVE); URINE BLOOD NEGATIVE (NEGATIVE); URINE COLOR YELLOW; URINE GLUCOSE (UA) NEGATIVE (NEGATIVE); URINE KETONE NEGATIVE (NEGATIVE); URINE NITRITE NEGATIVE (NEGATIVE); URINE UROBILINOGEN NEGATIVE E.U./dl (0.2-1.0)
[2016-11-14] MEDS: ATORVASTATIN CA 20 MG TABLET (FP) PO SCH (21:43)
[2016-11-14 21:51] LABS: URINE LEUK ESTERASE TRACE (NEGATIVE); URINE PROTEIN 2+ (NEGATIVE)
[2016-11-14 21:52] LABS: URINE HYALINE CAST 1 /lpf; URINE MUCUS RARE; URINE RBC 2 /hpf (0-3); URINE WBC 35 /hpf (3-5)
[2016-11-15] MEDS: INSULIN SLIDING SCALE (NOVOLOG) 1 VIAL SQ SCH ×4 (06:13→21:59)
--- NOTE | 2016-11-15 08:57 | PN ---
Physical Exam: SUBJECTIVE: Patient seen and examined OBJECTIVE: Vital Signs Period Temp Pulse Resp BP Sys/Hinds Pulse Ox Last 24 Hr 97.3 F-97.8 F 64-74 19-20 124-165/68-70 98-98 GENERAL: The patient is sleepy but arousable. Oriented to person and place. HEAD: Normal with no signs of trauma. EYES: PERRL, extraocular movements intact, sclera anicteric, conjunctiva clear. No ptosis. ENT: Ears normal, nares patent, oropharynx clear without exudates, moist mucous membranes. NECK: Trachea midline, full range of motion, supple. LUNGS: Breath sounds equal, clear to auscultation bilaterally, no wheezes, no crackles, no accessory muscle use. HEART: Regular rate and rhythm, S1, S2 without murmur, rub or gallop. ABDOMEN: Soft, nontender, nondistended, normoactive bowel sounds, no guarding, no rebound, no hepatosplenomegaly, no masses. EXTREMITIES: 2+ pulses, warm, well-perfused, no edema. NEUROLOGICAL: Cranial nerves II through XII grossly intact. Normal speech, gait not observed. PSYCH: Normal mood, normal affect. SKIN: Warm, dry, normal turgor, no rashes or lesions noted Laboratory Results - last 24 hr 11/14/16 11/14/16 11/14/16 09:15 13:40 17:22 POC Glucometer 152 Troponin I 0.18 H Urine Color Urine Appearance Urine pH Ur Specific [place] Urine Protein Urine Glucose (UA) Urine Ketones Urine Blood Urine Nitrite Urine Bilirubin Urine Urobilinogen Ur Leukocyte Esterase Urine RBC Urine WBC Ur Epithelial Cells Hyaline Casts Urine Mucus Opiates Screen Positive Methadone Screen Negative Barbiturate Screen Negative Phencyclidine Screen Negative Ur Amphetamines Screen Negative MDMA (Ecstasy) Screen Negative Benzodiazepines Screen Negative Cocaine Screen Negative U Marijuana (THC) Screen Negative 11/14/16 11/14/16 18:45 21:40 POC Glucometer 108 Troponin I Urine Color Yellow Urine Appearance Clear Urine pH 8.0 Ur Specific [place] 1.011 Urine Protein 2+ H Urine Glucose (UA) Negative Urine Ketones Negative Urine Blood Negative Urine Nitrite Negative Urine Bilirubin Negative Urine Urobilinogen Negative Ur Leukocyte Esterase Trace H Urine RBC 2 Urine WBC 35 Ur Epithelial Cells Few Hyaline Casts 1 Urine Mucus Rare Opiates Screen Methadone Screen Barbiturate Screen Phencyclidine Screen Ur Amphetamines Screen MDMA (Ecstasy) Screen Benzodiazepines Screen Cocaine Screen U Marijuana (THC) Screen Active Medications Generic Name Dose Route Start Last Admin Trade Name Freq PRN Reason Stop Dose Admin Acetaminophen 650 mg 11/13/16 14:34 11/14/16 21:42 Tylenol - PO 650 mg Q4H PRN Administration FEVER OR PAIN Albuterol Sulfate 1 amp 11/13/16 14:34 Ventolin 0.083% Nebulizer Soln - NEB Q4H PRN SHORT OF BREATH/WHEEZING Apixaban 2.5 mg 11/13/16 22:00 11/14/16 21:43 Eliquis - PO 2.5 mg BID [facility] Administration Aspirin 81 mg 11/14/16 10:00 11/14/16 10:10 Asa - PO 81 mg DAILY [facility] Administration Atorvastatin Calcium 20 mg 11/13/16 22:00 11/14/16 21:43 Lipitor - PO 20 mg HS [facility] Administration Carvedilol 12.5 mg 11/13/16 22:00 11/14/16 21:43 Coreg - PO 12.5 mg BID [facility] Administration Epoetin Devin 4,000 units 11/15/16 09:00 Epogen - IVPUSH 11/15/16 09:01 ONCE ONE Gabapentin 100 mg 11/14/16 10:00 11/14/16 10:11 Neurontin - PO 100 mg DAILY [facility] Administration Hydralazine HCl 50 mg 11/13/16 22:00 11/14/16 21:43 Apresoline - PO 50 mg BID [facility] Administration Insulin Aspart 1 vial 11/13/16 16:30 11/15/16 06:13 Novolog Vial Sliding Scale - SQ Not Given ACHS [facility] Protocol Isosorbide Mononitrate 30 mg 11/14/16 10:00 11/14/16 10:10 Imdur - PO 30 mg DAILY [facility] Administration Ondansetron HCl 4 mg 11/13/16 14:34 Zofran Injection IVPB Q6H PRN NAUSEA Pantoprazole Sodium 40 mg 11/13/16 22:00 11/14/16 21:43 Protonix - PO 40 mg BID [facility] Administration Sevelamer Carbonate 800 mg 11/13/16 17:30 11/14/16 17:32 Renvela - PO 800 mg TIDCM [facility] Administration Tamsulosin HCl 0.4 mg 11/14/16 08:30 11/14/16 09:04 Flomax - PO 0.4 mg DAILY@0830 [facility] Administration ASSESSMENT/PLAN 66 year-old man with a PMH of ESRD on HD, CAD s/p CABG s/p stent s/p PPM/AICD, chronic systolic heart failure, PAF, h/o RUE DVT, PAD, CVA, anemia, BPH, and left hip fracture s/p hemiarthroplasty. Patient came to ED with a complaint of generalized pain but became obtunded, mental status improved after Narcan administration. This morning reported chest pain. Chest pain --troponin #1 0.18, troponin #2 0.18, likely secondary to CHF --04/26 stress Persantine MIBI reportedly without ischemia --continue Eliquis, ASA, beta ruth, statin --seen by cardiology Severe systolic heart failure, chronic --2/3 Echo: LV moderately to severely reduced; PPM in RV and lead appears thickened, cannot r/o vegetation; RV grossly normal; BLAE; MV ring present, moderate to severe MR; severe TR --will discuss possible RAZIA with cardiology Paroxysmal atrial fibrillation --rate is well-controlled --on Eliquis Acute encephalopathy --unclear etiology, urine drug screen +opiates but patient on routine pain meds --had HD yesterday --mental status improved today; patient is known to me and he is at baseline mental status --seen by psych, no indication for meds Left hip/leg pain s/p left hip hemiarthroplasty --has refused physical therapy since surgery ESRD on HD --HD today --continued Renvela --renal following CAD s/p CABG s/p PPM/AICD --ECG shows paced rhythm @ 70 --continue ASA, carvedilol, Lipitor, Imdur Hypertension --continue carvedilol, hydralazine h/o RUE DVT --questionable compliance with meds at home --Eliquis started on admission Hyperlipidemia - Continued Lipitor Type 2 diabetes mellitus - Fingersticks with Novolog sliding scale h/o right right arm DVT --continue Eliquis Peripheral artery disease --extremely poor venous access Anemia secondary to CKD --stable BPH --Continue Flomax F/E/N Fluids: PO intake adequate Electrolytes: replete as indicated Nutrition: renal diet DVT prophylaxis: on Eliquis Dispo: continues to require inpatient care. Full Code. Visit type - Emergency Visit Emergency Visit: Yes ED Registration Date: 11/13/16 Care time: The patient presented to the Emergency Department on the above date and was hospitalized for further evaluation of their emergent condition. - New Patient This patient is new to me today: No - Critical Care Critical Care patient: No
[2016-11-15] MEDS ORDERED: EPOETIN ALFA 2,000 UNITS/1 ML VIAL IVPUSH ONE (09:00)
--- NOTE | 2016-11-15 09:29 | PN ---
Progress Note, Physician History of Present Illness: Patient is a 66 year old male with significant medical hx of ESRD(HD T, Th, and Sat.), DM, anemia, CVA, CAD s/p pacemaker, s/p CABG (GUADALUPE to LAD, SVG to LPL, jump graft to D1/D2), history of PCIs (KAT to left circumflex, prior stents to LAD, LPL and LPDA), mitral annuloplasty ring, PAF; systolic CHF--> ICD; s/p mitral annuloplasty ring, HTN, HLD, DVT, PAD s/p multiple LE angioplasties/ stents, and GI bleed, who presents to the emergency department for generalized pain since yesterday. Between triage and nurse evaluation patient became obtunded, although his initial complaint was pain. - Current Medication List Current Medications: Active Medications Acetaminophen (Tylenol -) 650 mg PO Q4H PRN PRN Reason: FEVER OR PAIN Last Admin: 11/14/16 21:42 Dose: 650 mg Albuterol Sulfate (Ventolin 0.083% Nebulizer Soln -) 1 amp NEB Q4H PRN PRN Reason: SHORT OF BREATH/WHEEZING Apixaban (Eliquis -) 2.5 mg PO BID [facility] Last Admin: 11/14/16 21:43 Dose: 2.5 mg Aspirin (Asa -) 81 mg PO DAILY [facility] Last Admin: 11/14/16 10:10 Dose: 81 mg Atorvastatin Calcium (Lipitor -) 20 mg PO HS [facility] Last Admin: 11/14/16 21:43 Dose: 20 mg Carvedilol (Coreg -) 12.5 mg PO BID [facility] Last Admin: 11/14/16 21:43 Dose: 12.5 mg Gabapentin (Neurontin -) 100 mg PO DAILY [facility] Last Admin: 11/14/16 10:11 Dose: 100 mg Hydralazine HCl (Apresoline -) 50 mg PO BID [facility] Last Admin: 11/14/16 21:43 Dose: 50 mg Insulin Aspart (Novolog Vial Sliding Scale -) 1 vial SQ ACHS [facility] PRN Reason: Protocol Last Admin: 11/15/16 06:13 Dose: Not Given Isosorbide Mononitrate (Imdur -) 30 mg PO DAILY [facility] Last Admin: 11/14/16 10:10 Dose: 30 mg Ondansetron HCl (Zofran Injection) 4 mg IVPB Q6H PRN PRN Reason: NAUSEA Pantoprazole Sodium (Protonix -) 40 mg PO BID [facility] Last Admin: 11/14/16 21:43 Dose: 40 mg Sevelamer Carbonate (Renvela -) 800 mg PO TIDCM [facility] Last Admin: 11/14/16 17:32 Dose: 800 mg Tamsulosin HCl (Flomax -) 0.4 mg PO DAILY@0830 [facility] Last Admin: 11/14/16 09:04 Dose: 0.4 mg - Objective Vital Signs: Vital Signs Temperature 97.3 F L 11/15/16 06:32 Pulse Rate 68 11/15/16 06:32 Respiratory Rate 20 11/15/16 06:32 Blood Pressure 146/68 11/15/16 06:32 O2 Sat by Pulse Oximetry (%) 98 11/14/16 20:41 Eyes: Yes: WNL, Conjunctiva Clear, EOM Intact HENT: Yes: WNL, Atraumatic, Normocephalic Neck: Yes: WNL, Supple, Trachea Midline Cardiovascular: Yes: WNL, Regular Rate and Rhythm Respiratory: Yes: WNL, Regular, CTA Bilaterally Gastrointestinal: Yes: WNL, Normal Bowel Sounds Genitourinary: Yes: WNL Musculoskeletal: Yes: WNL Extremities: Yes: WNL Edema: No Integumentary: Yes: WNL Neurological: Yes: WNL, Alert, Oriented ...Motor Strength: WNL Psychiatric: Yes: WNL Labs: CBC, BMP 11/14/16 07:45 11/14/16 07:45 INR, PTT INR 1.25 (0.82-1.09) H 11/13/16 12:23 Assessment/Plan - Problems (1) DVT prophylaxis Code(s): [id number] - (2) Fluid overload Code(s): E87.70 - FLUID OVERLOAD, UNSPECIFIED Qualifiers: Hypervolemia type: unspecified Qualified Code(s): E87.70 - Fluid overload, unspecified (3) Hyperkalemia, diminished renal excretion Code(s): E87.5 - HYPERKALEMIA (4) Opiate or related narcotic overdose Code(s): T40.601A - POISONING BY UNSP NARCOTICS, ACCIDENTAL, INIT Qualifiers: Encounter type: initial encounter Injury intent: accidental or unintentional Qualified Code(s): T40.601A - Poisoning by unspecified narcotics, accidental (unintentional), initial encounter (5) Unable to ambulate Assessment/Plan: F/u with physical rehabilitation. Code(s): R26.2 - DIFFICULTY IN WALKING, NOT ELSEWHERE CLASSIFIED (6) Anemia Code(s): D64.9 - ANEMIA, UNSPECIFIED Qualifiers: (7) BPH (benign prostatic hypertrophy) Code(s): N40.0 - BENIGN PROSTATIC HYPERPLASIA WITHOUT LOWER URINRY TRACT SYMP (8) Chronic pain disorder Code(s): G89.4 - CHRONIC PAIN SYNDROME (9) Coronary artery disease Code(s): I25.10 - ATHSCL HEART DISEASE OF [place] CORONARY ARTERY W/O ANG PCTRS Qualifiers: Coronary Disease-Associated Artery/Lesion type: [place] artery [place] vs. transplanted heart: [place] heart Associated angina: without angina Qualified Code(s): I25.10 - Atherosclerotic heart disease of [place] coronary artery without angina pectoris (10) Dependency on pain medication Code(s): F19.20 - OTHER PSYCHOACTIVE SUBSTANCE DEPENDENCE, UNCOMPLICATED (11) ESRD (end stage renal disease) on dialysis Assessment/Plan: HD schedule per neprhologist. Code(s): N18.6 - END STAGE RENAL DISEASE Z99.2 - DEPENDENCE ON RENAL DIALYSIS (12) Hx of CABG Code(s): Z95.1 - PRESENCE OF AORTOCORONARY BYPASS GRAFT (13) Hyperlipidemia Assessment/Plan: On atorvastatin. Code(s): E78.5 - HYPERLIPIDEMIA, UNSPECIFIED Qualifiers: Hyperlipidemia type: pure hypercholesterolemia Qualified Code(s): E78.0 - Pure hypercholesterolemia (14) Hypertension Assessment/Plan: On carvedilol, hydralazine, and Imdur. Code(s): I10 - ESSENTIAL (PRIMARY) HYPERTENSION Qualifiers: Hypertension type: essential hypertension Qualified Code(s): I10 - Essential (primary) hypertension (15) ICD (implantable cardioverter-defibrillator) in place Code(s): Z95.810 - PRESENCE OF AUTOMATIC (IMPLANTABLE) CARDIAC DEFIBRILLATOR (16) PAD (peripheral artery disease) Code(s): I73.9 - PERIPHERAL VASCULAR DISEASE, UNSPECIFIED (17) PAF (paroxysmal atrial fibrillation) Assessment/Plan: On carvediolol for HR control. On apixaban for AC; compliance is crucial, but has been an issue in the past. Code(s): I48.0 - PAROXYSMAL ATRIAL FIBRILLATION (18) PVD (peripheral vascular disease) Code(s): I73.9 - PERIPHERAL VASCULAR DISEASE, UNSPECIFIED (19) S/P mitral valve repair Assessment/Plan: ring annuloplasty; f/u ECHO. Code(s): Z98.89 - OTHER SPECIFIED POSTPROCEDURAL STATES * DO NOT USE * (20) Status post coronary artery stent placement Code(s): Z95.5 - PRESENCE OF CORONARY ANGIOPLASTY IMPLANT AND GRAFT (21) Type 2 diabetes mellitus Code(s): E11.9 - TYPE 2 DIABETES MELLITUS WITHOUT COMPLICATIONS Qualifiers: Diabetes mellitus complication status: with kidney complications Diabetes mellitus complication detail: with chronic kidney disease Chronic kidney disease stage: on chronic dialysis (22) Low back pain Code(s): M54.5 - LOW BACK PAIN Qualifiers: Chronicity: chronic Back pain laterality: left Sciatica presence: without sciatica Qualified Code(s): M54.5 - Low back pain (24) Acute on chronic systolic CHF (congestive heart failure) Assessment/Plan: On carvedilol, hydralazine+Imdur, (apparently unable to tolerate ACEI, ARB, or spinronolactone: hx hyperkalemia). F/u HR and BP, volume status post-HD, electrolytes. Mild TNI elevation (0.18) likely from CHF, additional nonischemis sources; stress Persantine MIBI reportedly without ischemia. F/u ECHO for LVEF, valve status. Pt has ICD; f/u interrogation (order, if not done recently). Code(s): I50.23 - ACUTE ON CHRONIC SYSTOLIC (CONGESTIVE) HEART FAILURE (25) Diabetes Code(s): E11.9 - TYPE 2 DIABETES MELLITUS WITHOUT COMPLICATIONS
[2016-11-15] MEDS: SEVELAMER CARBONATE 800 MG TAB (FP) PO SCH ×3 (09:33→16:42)
[2016-11-15] MEDS: ACETAMINOPHEN 325 MG TABLET (FP) PO PRN ×3 (09:33→22:04)
[2016-11-15] MEDS: GABAPENTIN 100 MG CAPSULE (FP) PO SCH (09:34)
[2016-11-15] MEDS: ISOSORBIDE MONONITRATE 30 MG TAB.SR.24H (FP) PO SCH (12:50)
[2016-11-15] MEDS: hydrALAZINE HCL 50 MG TABLET (FP) PO SCH ×2 (12:50→21:59)
[2016-11-15] MEDS: PANTOPRAZOLE 40 MG TABLET (FP) PO SCH ×2 (12:50→21:59)
[2016-11-15] MEDS: ASPIRIN 81 MG CHEWABLE TABLETS PO SCH (12:50)
[2016-11-15] MEDS: APIXABAN 2.5 MG TABLET PO SCH ×2 (12:50→21:59)
[2016-11-15] MEDS: CARVEDILOL 12.5 MG TABLET (FP) PO SCH ×2 (12:50→21:59)
[2016-11-15] MEDS: TAMSULOSIN HCL 0.4 MG CAP.ER.24H (FP) PO SCH (12:50)
--- NOTE | 2016-11-15 17:47 | PN ---
Progress Note, Physician History of Present Illness: Pt seen and examined at bedside. He tolerated HD today. He is asking to go home. - Current Medication List Current Medications: Active Medications Acetaminophen (Tylenol -) 650 mg PO Q4H PRN PRN Reason: FEVER OR PAIN Last Admin: 11/15/16 13:47 Dose: 650 mg Albuterol Sulfate (Ventolin 0.083% Nebulizer Soln -) 1 amp NEB Q4H PRN PRN Reason: SHORT OF BREATH/WHEEZING Apixaban (Eliquis -) 2.5 mg PO BID [facility] Last Admin: 11/15/16 12:50 Dose: 2.5 mg Aspirin (Asa -) 81 mg PO DAILY [facility] Last Admin: 11/15/16 12:50 Dose: 81 mg Atorvastatin Calcium (Lipitor -) 20 mg PO HS [facility] Last Admin: 11/14/16 21:43 Dose: 20 mg Carvedilol (Coreg -) 12.5 mg PO BID [facility] Last Admin: 11/15/16 12:50 Dose: 12.5 mg Gabapentin (Neurontin -) 100 mg PO DAILY [facility] Last Admin: 11/15/16 09:34 Dose: 100 mg Hydralazine HCl (Apresoline -) 50 mg PO BID [facility] Last Admin: 11/15/16 12:50 Dose: 50 mg Insulin Aspart (Novolog Vial Sliding Scale -) 1 vial SQ ACHS [facility] PRN Reason: Protocol Last Admin: 11/15/16 16:40 Dose: Not Given Isosorbide Mononitrate (Imdur -) 30 mg PO DAILY [facility] Last Admin: 11/15/16 12:50 Dose: 30 mg Ondansetron HCl (Zofran Injection) 4 mg IVPB Q6H PRN PRN Reason: NAUSEA Pantoprazole Sodium (Protonix -) 40 mg PO BID [facility] Last Admin: 11/15/16 12:50 Dose: 40 mg Sevelamer Carbonate (Renvela -) 800 mg PO TIDCM [facility] Last Admin: 11/15/16 16:42 Dose: 800 mg Tamsulosin HCl (Flomax -) 0.4 mg PO DAILY@0830 [facility] Last Admin: 11/15/16 12:50 Dose: 0.4 mg - Objective Vital Signs: Vital Signs Temperature 97.4 F L 11/15/16 15:06 Pulse Rate 76 11/15/16 15:06 Respiratory Rate 22 11/15/16 15:06 Blood Pressure 148/64 11/15/16 15:06 O2 Sat by Pulse Oximetry (%) 98 11/15/16 09:00 Constitutional: Yes: Calm Eyes: Yes: Conjunctiva Clear HENT: Yes: Atraumatic Neck: Yes: Supple Cardiovascular: Yes: S1, S2 Respiratory: Yes: CTA Bilaterally Gastrointestinal: Yes: Normal Bowel Sounds Edema: Yes Edema: LUE: 1+, RUE: 1+ Neurological: Yes: Oriented Labs: CBC, BMP 11/14/16 07:45 11/14/16 07:45 INR, PTT INR 1.25 (0.82-1.09) H 11/13/16 12:23 Assessment/Plan Current Medications Generic Name Dose Route Start Last Admin Trade Name Freq PRN Reason Stop Dose Admin Acetaminophen 650 mg 11/13/16 14:34 11/15/16 13:47 Tylenol - PO 650 mg Q4H PRN Administration FEVER OR PAIN Albuterol Sulfate 1 amp 11/13/16 14:34 Ventolin 0.083% Nebulizer Soln - NEB Q4H PRN SHORT OF BREATH/WHEEZING Apixaban 2.5 mg 11/13/16 22:00 11/15/16 12:50 Eliquis - PO 2.5 mg BID [facility] Administration Aspirin 81 mg 11/14/16 10:00 11/15/16 12:50 Asa - PO 81 mg DAILY [facility] Administration Atorvastatin Calcium 20 mg 11/13/16 22:00 11/14/16 21:43 Lipitor - PO 20 mg HS [facility] Administration Carvedilol 12.5 mg 11/13/16 22:00 11/15/16 12:50 Coreg - PO 12.5 mg BID [facility] Administration Gabapentin 100 mg 11/14/16 10:00 11/15/16 09:34 Neurontin - PO 100 mg DAILY [facility] Administration Hydralazine HCl 50 mg 11/13/16 22:00 11/15/16 12:50 Apresoline - PO 50 mg BID [facility] Administration Insulin Aspart 1 vial 11/13/16 16:30 11/15/16 16:40 Novolog Vial Sliding Scale - SQ Not Given ACHS [facility] Protocol Isosorbide Mononitrate 30 mg 11/14/16 10:00 11/15/16 12:50 Imdur - PO 30 mg DAILY [facility] Administration Ondansetron HCl 4 mg 11/13/16 14:34 Zofran Injection IVPB Q6H PRN NAUSEA Pantoprazole Sodium 40 mg 11/13/16 22:00 11/15/16 12:50 Protonix - PO 40 mg BID [facility] Administration Sevelamer Carbonate 800 mg 11/13/16 17:30 11/15/16 16:42 Renvela - PO 800 mg TIDCM [facility] Administration Tamsulosin HCl 0.4 mg 11/14/16 08:30 11/15/16 12:50 Flomax - PO 0.4 mg DAILY@0830 [facility] Administration Impression 1. ESRD 2. CAD 3. HTN 4. narcotic dependence 5. non compliance 6. pleural effusions 7. anemia 8. dyspnea 9. DVT 10. hx GI bleed 11. altered mental status Plan - pt was dialyzed today - he is more awake and alert - mental status is back to baseline - avoid sedatives if possible - cont current meds - will follow while in hospital
[2016-11-15] MEDS: ATORVASTATIN CA 20 MG TABLET (FP) PO SCH (21:59)
[2016-11-16] MEDS: INSULIN SLIDING SCALE (NOVOLOG) 1 VIAL SQ SCH ×4 (06:10→21:06)
[2016-11-16] MEDS: TAMSULOSIN HCL 0.4 MG CAP.ER.24H (FP) PO SCH (09:29)
[2016-11-16] MEDS: SEVELAMER CARBONATE 800 MG TAB (FP) PO SCH ×3 (09:29→18:04)
[2016-11-16] MEDS: hydrALAZINE HCL 50 MG TABLET (FP) PO SCH ×2 (09:29→21:05)
[2016-11-16] MEDS: ISOSORBIDE MONONITRATE 30 MG TAB.SR.24H (FP) PO SCH (09:29)
[2016-11-16] MEDS: GABAPENTIN 100 MG CAPSULE (FP) PO SCH (09:29)
[2016-11-16] MEDS: APIXABAN 2.5 MG TABLET PO SCH ×2 (09:30→21:06)
[2016-11-16] MEDS: ASPIRIN 81 MG CHEWABLE TABLETS PO SCH (09:30)
[2016-11-16] MEDS: CARVEDILOL 12.5 MG TABLET (FP) PO SCH ×2 (09:30→21:05)
[2016-11-16] MEDS: PANTOPRAZOLE 40 MG TABLET (FP) PO SCH ×2 (09:30→21:05)
--- NOTE | 2016-11-16 10:11 | PN ---
Progress Note, Physician History of Present Illness: Patient is a 66 year old male with significant medical hx of ESRD(HD T, Th, and Sat.), DM, anemia, CVA, CAD s/p pacemaker, s/p CABG (GUADALUPE to LAD, SVG to LPL, jump graft to D1/D2), history of PCIs (KAT to left circumflex, prior stents to LAD, LPL and LPDA), mitral annuloplasty ring, PAF; systolic CHF--> ICD; s/p mitral annuloplasty ring, HTN, HLD, DVT, PAD s/p multiple LE angioplasties/ stents, and GI bleed, who presents to the emergency department for generalized pain since yesterday. Between triage and nurse evaluation patient became obtunded, although his initial complaint was pain. - Current Medication List Current Medications: Active Medications Acetaminophen (Tylenol -) 650 mg PO Q4H PRN PRN Reason: FEVER OR PAIN Last Admin: 11/15/16 22:04 Dose: 650 mg Albuterol Sulfate (Ventolin 0.083% Nebulizer Soln -) 1 amp NEB Q4H PRN PRN Reason: SHORT OF BREATH/WHEEZING Apixaban (Eliquis -) 2.5 mg PO BID [facility] Last Admin: 11/16/16 09:30 Dose: 2.5 mg Aspirin (Asa -) 81 mg PO DAILY [facility] Last Admin: 11/16/16 09:30 Dose: 81 mg Atorvastatin Calcium (Lipitor -) 20 mg PO HS [facility] Last Admin: 11/15/16 21:59 Dose: 20 mg Carvedilol (Coreg -) 12.5 mg PO BID [facility] Last Admin: 11/16/16 09:30 Dose: 12.5 mg Gabapentin (Neurontin -) 100 mg PO DAILY [facility] Last Admin: 11/16/16 09:29 Dose: 100 mg Hydralazine HCl (Apresoline -) 50 mg PO BID [facility] Last Admin: 11/16/16 09:29 Dose: 50 mg Insulin Aspart (Novolog Vial Sliding Scale -) 1 vial SQ ACHS [facility] PRN Reason: Protocol Last Admin: 11/16/16 06:10 Dose: Not Given Isosorbide Mononitrate (Imdur -) 30 mg PO DAILY [facility] Last Admin: 11/16/16 09:29 Dose: 30 mg Ondansetron HCl (Zofran Injection) 4 mg IVPB Q6H PRN PRN Reason: NAUSEA Pantoprazole Sodium (Protonix -) 40 mg PO BID [facility] Last Admin: 11/16/16 09:30 Dose: 40 mg Sevelamer Carbonate (Renvela -) 800 mg PO TIDCM [facility] Last Admin: 11/16/16 09:29 Dose: 800 mg Tamsulosin HCl (Flomax -) 0.4 mg PO DAILY@0830 [facility] Last Admin: 11/16/16 09:29 Dose: 0.4 mg - Objective Vital Signs: Vital Signs Temperature 97.5 F L 11/16/16 09:28 Pulse Rate 74 11/16/16 09:28 Respiratory Rate 18 11/16/16 09:28 Blood Pressure 166/76 11/16/16 09:28 O2 Sat by Pulse Oximetry (%) 96 11/16/16 06:00 Eyes: Yes: WNL, Conjunctiva Clear, EOM Intact HENT: Yes: WNL, Atraumatic, Normocephalic Neck: Yes: WNL, Supple, Trachea Midline Cardiovascular: Yes: WNL, Regular Rate and Rhythm Respiratory: Yes: WNL, Regular, CTA Bilaterally Gastrointestinal: Yes: WNL, Normal Bowel Sounds Genitourinary: Yes: WNL Musculoskeletal: Yes: WNL Extremities: Yes: WNL Edema: No Integumentary: Yes: WNL Neurological: Yes: WNL, Alert, Oriented ...Motor Strength: WNL Psychiatric: Yes: WNL Labs: CBC, BMP 11/14/16 07:45 11/14/16 07:45 INR, PTT INR 1.25 (0.82-1.09) H 11/13/16 12:23 Assessment/Plan - Problems (1) DVT prophylaxis Code(s): [id number] - (2) Fluid overload Code(s): E87.70 - FLUID OVERLOAD, UNSPECIFIED Qualifiers: Hypervolemia type: unspecified Qualified Code(s): E87.70 - Fluid overload, unspecified (3) Hyperkalemia, diminished renal excretion Code(s): E87.5 - HYPERKALEMIA (4) Opiate or related narcotic overdose Code(s): T40.601A - POISONING BY UNSP NARCOTICS, ACCIDENTAL, INIT Qualifiers: Encounter type: initial encounter Injury intent: accidental or unintentional Qualified Code(s): T40.601A - Poisoning by unspecified narcotics, accidental (unintentional), initial encounter (5) Unable to ambulate Assessment/Plan: F/u with physical rehabilitation. Code(s): R26.2 - DIFFICULTY IN WALKING, NOT ELSEWHERE CLASSIFIED (6) Anemia Code(s): D64.9 - ANEMIA, UNSPECIFIED Qualifiers: (7) BPH (benign prostatic hypertrophy) Code(s): N40.0 - BENIGN PROSTATIC HYPERPLASIA WITHOUT LOWER URINRY TRACT SYMP (8) Chronic pain disorder Code(s): G89.4 - CHRONIC PAIN SYNDROME (9) Coronary artery disease Code(s): I25.10 - ATHSCL HEART DISEASE OF [place] CORONARY ARTERY W/O ANG PCTRS Qualifiers: Coronary Disease-Associated Artery/Lesion type: [place] artery [place] vs. transplanted heart: [place] heart Associated angina: without angina Qualified Code(s): I25.10 - Atherosclerotic heart disease of [place] coronary artery without angina pectoris (10) Dependency on pain medication Code(s): F19.20 - OTHER PSYCHOACTIVE SUBSTANCE DEPENDENCE, UNCOMPLICATED (11) ESRD (end stage renal disease) on dialysis Assessment/Plan: HD schedule per neprhologist. Code(s): N18.6 - END STAGE RENAL DISEASE Z99.2 - DEPENDENCE ON RENAL DIALYSIS (12) Hx of CABG Code(s): Z95.1 - PRESENCE OF AORTOCORONARY BYPASS GRAFT (13) Hyperlipidemia Assessment/Plan: On atorvastatin. Code(s): E78.5 - HYPERLIPIDEMIA, UNSPECIFIED Qualifiers: Hyperlipidemia type: pure hypercholesterolemia Qualified Code(s): E78.0 - Pure hypercholesterolemia (14) Hypertension Assessment/Plan: On carvedilol, hydralazine, and Imdur. Code(s): I10 - ESSENTIAL (PRIMARY) HYPERTENSION Qualifiers: Hypertension type: essential hypertension Qualified Code(s): I10 - Essential (primary) hypertension (15) ICD (implantable cardioverter-defibrillator) in place Code(s): Z95.810 - PRESENCE OF AUTOMATIC (IMPLANTABLE) CARDIAC DEFIBRILLATOR (16) PAD (peripheral artery disease) Code(s): I73.9 - PERIPHERAL VASCULAR DISEASE, UNSPECIFIED (17) PAF (paroxysmal atrial fibrillation) Assessment/Plan: On carvediolol for HR control. On apixaban for AC; compliance is crucial, but has been an issue in the past. Code(s): I48.0 - PAROXYSMAL ATRIAL FIBRILLATION (18) PVD (peripheral vascular disease) Code(s): I73.9 - PERIPHERAL VASCULAR DISEASE, UNSPECIFIED (19) S/P mitral valve repair Assessment/Plan: ring annuloplasty; f/u ECHO. Code(s): Z98.89 - OTHER SPECIFIED POSTPROCEDURAL STATES * DO NOT USE * (20) Status post coronary artery stent placement Code(s): Z95.5 - PRESENCE OF CORONARY ANGIOPLASTY IMPLANT AND GRAFT (21) Type 2 diabetes mellitus Code(s): E11.9 - TYPE 2 DIABETES MELLITUS WITHOUT COMPLICATIONS Qualifiers: Diabetes mellitus complication status: with kidney complications Diabetes mellitus complication detail: with chronic kidney disease Chronic kidney disease stage: on chronic dialysis (22) Low back pain Code(s): M54.5 - LOW BACK PAIN Qualifiers: Chronicity: chronic Back pain laterality: left Sciatica presence: without sciatica Qualified Code(s): M54.5 - Low back pain (24) Acute on chronic systolic CHF (congestive heart failure) Assessment/Plan: On carvedilol, hydralazine+Imdur, (apparently unable to tolerate ACEI, ARB, or spinronolactone: hx hyperkalemia). F/u HR and BP, volume status post-HD, electrolytes. Mild TNI elevation (0.18) likely from CHF, additional nonischemis sources; stress Persantine MIBI reportedly without ischemia. F/u ECHO for LVEF, valve status. Pt has ICD; f/u interrogation (order, if not done recently). Code(s): I50.23 - ACUTE ON CHRONIC SYSTOLIC (CONGESTIVE) HEART FAILURE (25) Diabetes Code(s): E11.9 - TYPE 2 DIABETES MELLITUS WITHOUT COMPLICATIONS
[2016-11-16 12:59] LABS: THYROID STIMULATING HORMONE 4.54 uIU/ml (0.358-3.74)
--- NOTE | 2016-11-16 16:01 | PN ---
Progress Note, Physician History of Present Illness: Pt seen and examined at bedside. No new events. - Current Medication List Current Medications: Active Medications Acetaminophen (Tylenol -) 650 mg PO Q4H PRN PRN Reason: FEVER OR PAIN Last Admin: 11/15/16 22:04 Dose: 650 mg Albuterol Sulfate (Ventolin 0.083% Nebulizer Soln -) 1 amp NEB Q4H PRN PRN Reason: SHORT OF BREATH/WHEEZING Apixaban (Eliquis -) 2.5 mg PO BID [facility] Last Admin: 11/16/16 09:30 Dose: 2.5 mg Aspirin (Asa -) 81 mg PO DAILY [facility] Last Admin: 11/16/16 09:30 Dose: 81 mg Atorvastatin Calcium (Lipitor -) 20 mg PO HS [facility] Last Admin: 11/15/16 21:59 Dose: 20 mg Carvedilol (Coreg -) 12.5 mg PO BID [facility] Last Admin: 11/16/16 09:30 Dose: 12.5 mg Gabapentin (Neurontin -) 100 mg PO DAILY [facility] Last Admin: 11/16/16 09:29 Dose: 100 mg Hydralazine HCl (Apresoline -) 50 mg PO BID [facility] Last Admin: 11/16/16 09:29 Dose: 50 mg Insulin Aspart (Novolog Vial Sliding Scale -) 1 vial SQ ACHS [facility] PRN Reason: Protocol Last Admin: 11/16/16 12:21 Dose: Not Given Isosorbide Mononitrate (Imdur -) 30 mg PO DAILY [facility] Last Admin: 11/16/16 09:29 Dose: 30 mg Ondansetron HCl (Zofran Injection) 4 mg IVPB Q6H PRN PRN Reason: NAUSEA Pantoprazole Sodium (Protonix -) 40 mg PO BID [facility] Last Admin: 11/16/16 09:30 Dose: 40 mg Sevelamer Carbonate (Renvela -) 800 mg PO TIDCM [facility] Last Admin: 11/16/16 12:20 Dose: Not Given Tamsulosin HCl (Flomax -) 0.4 mg PO DAILY@0830 [facility] Last Admin: 11/16/16 09:29 Dose: 0.4 mg - Objective Vital Signs: Vital Signs Temperature 97.6 F 11/16/16 15:07 Pulse Rate 64 11/16/16 15:07 Respiratory Rate 20 11/16/16 15:07 Blood Pressure 141/56 11/16/16 15:07 O2 Sat by Pulse Oximetry (%) 96 11/16/16 06:00 Constitutional: Yes: Calm Eyes: Yes: Conjunctiva Clear HENT: Yes: Atraumatic Cardiovascular: Yes: S1, S2 Respiratory: Yes: CTA Bilaterally Gastrointestinal: Yes: Normal Bowel Sounds, Soft Genitourinary: Yes: Incontinence Musculoskeletal: Yes: Muscle Weakness Edema: Yes Edema: LUE: 1+, RUE: 1+ Neurological: Yes: Oriented Psychiatric: Yes: Oriented Labs: CBC, BMP 11/14/16 07:45 11/14/16 07:45 INR, PTT INR 1.25 (0.82-1.09) H 11/13/16 12:23 Assessment/Plan Current Medications Generic Name Dose Route Start Last Admin Trade Name Freq PRN Reason Stop Dose Admin Acetaminophen 650 mg 11/13/16 14:34 11/15/16 22:04 Tylenol - PO 650 mg Q4H PRN Administration FEVER OR PAIN Albuterol Sulfate 1 amp 11/13/16 14:34 Ventolin 0.083% Nebulizer Soln - NEB Q4H PRN SHORT OF BREATH/WHEEZING Apixaban 2.5 mg 11/13/16 22:00 11/16/16 09:30 Eliquis - PO 2.5 mg BID [facility] Administration Aspirin 81 mg 11/14/16 10:00 11/16/16 09:30 Asa - PO 81 mg DAILY [facility] Administration Atorvastatin Calcium 20 mg 11/13/16 22:00 11/15/16 21:59 Lipitor - PO 20 mg HS [facility] Administration Carvedilol 12.5 mg 11/13/16 22:00 11/16/16 09:30 Coreg - PO 12.5 mg BID [facility] Administration Gabapentin 100 mg 11/14/16 10:00 11/16/16 09:29 Neurontin - PO 100 mg DAILY [facility] Administration Hydralazine HCl 50 mg 11/13/16 22:00 11/16/16 09:29 Apresoline - PO 50 mg BID [facility] Administration Insulin Aspart 1 vial 11/13/16 16:30 11/16/16 12:21 Novolog Vial Sliding Scale - SQ Not Given ACHS [facility] Protocol Isosorbide Mononitrate 30 mg 11/14/16 10:00 02/05/17 09:29 Imdur - PO 30 mg DAILY [facility] Administration Ondansetron HCl 4 mg 11/13/16 14:34 Zofran Injection IVPB Q6H PRN NAUSEA Pantoprazole Sodium 40 mg 11/13/16 22:00 11/16/16 09:30 Protonix - PO 40 mg BID [facility] Administration Sevelamer Carbonate 800 mg 11/13/16 17:30 11/16/16 12:20 Renvela - PO Not Given TIDCM [facility] Tamsulosin HCl 0.4 mg 11/14/16 08:30 11/16/16 09:29 Flomax - PO 0.4 mg DAILY@0830 [facility] Administration Impression 1. ESRD 2. CAD 3. HTN 4. narcotic dependence 5. non compliance 6. pleural effusions 7. anemia 8. dyspnea 9. DVT 10. hx GI bleed 11. altered mental status Plan - cont current management - next HD on Thursday - mental status is back to baseline - avoid sedatives if possible - cont current meds - will follow while in hospital
[2016-11-16] MEDS: ATORVASTATIN CA 20 MG TABLET (FP) PO SCH (21:05)
[2016-11-17] MEDS: INSULIN SLIDING SCALE (NOVOLOG) 1 VIAL SQ SCH ×2 (06:10→11:52)
[2016-11-17] MEDS: ASPIRIN 81 MG CHEWABLE TABLETS PO SCH (09:08)
[2016-11-17] MEDS: hydrALAZINE HCL 50 MG TABLET (FP) PO SCH (09:08)
[2016-11-17] MEDS: ISOSORBIDE MONONITRATE 30 MG TAB.SR.24H (FP) PO SCH (09:08)
[2016-11-17] MEDS: CARVEDILOL 12.5 MG TABLET (FP) PO SCH (09:08)
[2016-11-17] MEDS: GABAPENTIN 100 MG CAPSULE (FP) PO SCH (09:08)
[2016-11-17] MEDS: APIXABAN 2.5 MG TABLET PO SCH (09:08)
[2016-11-17] MEDS: SEVELAMER CARBONATE 800 MG TAB (FP) PO SCH ×2 (09:09→13:04)
[2016-11-17] MEDS: TAMSULOSIN HCL 0.4 MG CAP.ER.24H (FP) PO SCH (09:09)
[2016-11-17] MEDS: PANTOPRAZOLE 40 MG TABLET (FP) PO SCH (09:10)
--- NOTE | 2016-11-17 10:18 | PN ---
Progress Note, Physician History of Present Illness: Pt seen and examined at bedside. He is awake and alert. He is asking to go home. He denies shortness of breath. - Current Medication List Current Medications: Active Medications Acetaminophen (Tylenol -) 650 mg PO Q4H PRN PRN Reason: FEVER OR PAIN Last Admin: 11/15/16 22:04 Dose: 650 mg Albuterol Sulfate (Ventolin 0.083% Nebulizer Soln -) 1 amp NEB Q4H PRN PRN Reason: SHORT OF BREATH/WHEEZING Apixaban (Eliquis -) 2.5 mg PO BID [facility] Last Admin: 11/17/16 09:08 Dose: 2.5 mg Aspirin (Asa -) 81 mg PO DAILY [facility] Last Admin: 11/17/16 09:08 Dose: 81 mg Atorvastatin Calcium (Lipitor -) 20 mg PO HS [facility] Last Admin: 11/16/16 21:05 Dose: 20 mg Carvedilol (Coreg -) 12.5 mg PO BID [facility] Last Admin: 11/17/16 09:08 Dose: 12.5 mg Gabapentin (Neurontin -) 100 mg PO DAILY [facility] Last Admin: 11/17/16 09:08 Dose: 100 mg Hydralazine HCl (Apresoline -) 50 mg PO BID [facility] Last Admin: 11/17/16 09:08 Dose: 50 mg Insulin Aspart (Novolog Vial Sliding Scale -) 1 vial SQ ACHS [facility] PRN Reason: Protocol Last Admin: 11/17/16 06:10 Dose: Not Given Isosorbide Mononitrate (Imdur -) 30 mg PO DAILY [facility] Last Admin: 11/17/16 09:08 Dose: 30 mg Ondansetron HCl (Zofran Injection) 4 mg IVPB Q6H PRN PRN Reason: NAUSEA Pantoprazole Sodium (Protonix -) 40 mg PO BID [facility] Last Admin: 11/17/16 09:10 Dose: 40 mg Sevelamer Carbonate (Renvela -) 800 mg PO TIDCM [facility] Last Admin: 11/17/16 09:09 Dose: 800 mg Tamsulosin HCl (Flomax -) 0.4 mg PO DAILY@0830 [facility] Last Admin: 11/17/16 09:09 Dose: 0.4 mg - Objective Vital Signs: Vital Signs Temperature 97.9 F 11/17/16 05:52 Pulse Rate 61 11/17/16 05:52 Respiratory Rate 20 11/17/16 05:52 Blood Pressure 151/80 11/17/16 05:52 O2 Sat by Pulse Oximetry (%) 96 11/16/16 22:39 Constitutional: Yes: Calm Eyes: Yes: Conjunctiva Clear HENT: Yes: Atraumatic Cardiovascular: Yes: S1, S2 Respiratory: Yes: CTA Bilaterally Gastrointestinal: Yes: Soft Genitourinary: Yes: WNL Musculoskeletal: Yes: Muscle Weakness Edema: Yes Edema: LUE: 1+, RUE: 1+ Neurological: Yes: Oriented Psychiatric: Yes: Oriented Labs: CBC, BMP 11/14/16 07:45 11/14/16 07:45 INR, PTT INR 1.25 (0.82-1.09) H 11/13/16 12:23 Assessment/Plan Current Medications Generic Name Dose Route Start Last Admin Trade Name Freq PRN Reason Stop Dose Admin Acetaminophen 650 mg 11/13/16 14:34 11/15/16 22:04 Tylenol - PO 650 mg Q4H PRN Administration FEVER OR PAIN Albuterol Sulfate 1 amp 11/13/16 14:34 Ventolin 0.083% Nebulizer Soln - NEB Q4H PRN SHORT OF BREATH/WHEEZING Apixaban 2.5 mg 11/13/16 22:00 11/17/16 09:08 Eliquis - PO 2.5 mg BID [facility] Administration Aspirin 81 mg 11/14/16 10:00 11/17/16 09:08 Asa - PO 81 mg DAILY [facility] Administration Atorvastatin Calcium 20 mg 11/13/16 22:00 11/16/16 21:05 Lipitor - PO 20 mg HS [facility] Administration Carvedilol 12.5 mg 11/13/16 22:00 11/17/16 09:08 Coreg - PO 12.5 mg BID [facility] Administration Gabapentin 100 mg 11/14/16 10:00 11/17/16 09:08 Neurontin - PO 100 mg DAILY [facility] Administration Hydralazine HCl 50 mg 11/13/16 22:00 11/17/16 09:08 Apresoline - PO 50 mg BID [facility] Administration Insulin Aspart 1 vial 11/13/16 16:30 11/17/16 06:10 Novolog Vial Sliding Scale - SQ Not Given ACHS [facility] Protocol Isosorbide Mononitrate 30 mg 11/14/16 10:00 11/17/16 09:08 Imdur - PO 30 mg DAILY [facility] Administration Ondansetron HCl 4 mg 11/13/16 14:34 Zofran Injection IVPB Q6H PRN NAUSEA Pantoprazole Sodium 40 mg 11/13/16 22:00 11/17/16 09:10 Protonix - PO 40 mg BID [facility] Administration Sevelamer Carbonate 800 mg 11/13/16 17:30 11/17/16 09:09 Renvela - PO 800 mg TIDCM [facility] Administration Tamsulosin HCl 0.4 mg 11/14/16 08:30 11/17/16 09:09 Flomax - PO 0.4 mg DAILY@0830 [facility] Administration Impression 1. ESRD 2. CAD 3. HTN 4. narcotic dependence 5. non compliance 6. pleural effusions 7. anemia 8. dyspnea 9. DVT 10. hx GI bleed 11. altered mental status Plan - HD in am - cardiology follow up for plan - mental status is back to baseline - avoid sedatives if possible - cont current meds - will follow while in hospital - compliance remains very poor Dr Campos
--- NOTE | 2016-11-17 12:37 | PN ---
Progress Note, Physician Chief Complaint: lethargic History of Present Illness: Patient is a 66 year old male with significant medical hx of ESRD(HD T, Th, and Sat.), DM, anemia, CVA, CAD s/p pacemaker, s/p CABG (GUADALUPE to LAD, SVG to LPL, jump graft to D1/D2), history of PCIs (KAT to left circumflex, prior stents to LAD, LPL and LPDA), mitral annuloplasty ring, PAF; systolic CHF--> ICD; s/p mitral annuloplasty ring, HTN, HLD, DVT, PAD s/p multiple LE angioplasties/ stents, and GI bleed, who presents to the emergency department for generalized pain since yesterday. Between triage and nurse evaluation patient became obtunded, although his initial complaint was pain. - Current Medication List Current Medications: Active Medications Acetaminophen (Tylenol -) 650 mg PO Q4H PRN PRN Reason: FEVER OR PAIN Last Admin: 11/15/16 22:04 Dose: 650 mg Albuterol Sulfate (Ventolin 0.083% Nebulizer Soln -) 1 amp NEB Q4H PRN PRN Reason: SHORT OF BREATH/WHEEZING Apixaban (Eliquis -) 2.5 mg PO BID [facility] Last Admin: 11/17/16 09:08 Dose: 2.5 mg Aspirin (Asa -) 81 mg PO DAILY [facility] Last Admin: 11/17/16 09:08 Dose: 81 mg Atorvastatin Calcium (Lipitor -) 20 mg PO HS [facility] Last Admin: 11/16/16 21:05 Dose: 20 mg Carvedilol (Coreg -) 12.5 mg PO BID [facility] Last Admin: 11/17/16 09:08 Dose: 12.5 mg Epoetin Devin 3,000 unit/ (Epoetin Devin 2,000 unit) 5,000 unit IVPUSH ONCE ONE Stop: 11/18/16 10:46 Gabapentin (Neurontin -) 100 mg PO DAILY [facility] Last Admin: 11/17/16 09:08 Dose: 100 mg Hydralazine HCl (Apresoline -) 50 mg PO BID [facility] Last Admin: 11/17/16 09:08 Dose: 50 mg Insulin Aspart (Novolog Vial Sliding Scale -) 1 vial SQ ACHS [facility] PRN Reason: Protocol Last Admin: 11/17/16 11:52 Dose: Not Given Isosorbide Mononitrate (Imdur -) 30 mg PO DAILY [facility] Last Admin: 11/17/16 09:08 Dose: 30 mg Ondansetron HCl (Zofran Injection) 4 mg IVPB Q6H PRN PRN Reason: NAUSEA Pantoprazole Sodium (Protonix -) 40 mg PO BID [facility] Last Admin: 11/17/16 09:10 Dose: 40 mg Sevelamer Carbonate (Renvela -) 800 mg PO TIDCM [facility] Last Admin: 11/17/16 09:09 Dose: 800 mg Tamsulosin HCl (Flomax -) 0.4 mg PO DAILY@0830 [facility] Last Admin: 11/17/16 09:09 Dose: 0.4 mg - Objective Vital Signs: Vital Signs Temperature 97.9 F 11/17/16 05:52 Pulse Rate 61 11/17/16 05:52 Respiratory Rate 20 11/17/16 09:00 Blood Pressure 151/80 11/17/16 05:52 O2 Sat by Pulse Oximetry (%) 96 11/17/16 09:00 Eyes: Yes: WNL, Conjunctiva Clear, EOM Intact HENT: Yes: WNL, Atraumatic, Normocephalic Neck: Yes: WNL, Supple, Trachea Midline Cardiovascular: Yes: WNL, Regular Rate and Rhythm Respiratory: Yes: WNL, Regular, CTA Bilaterally Gastrointestinal: Yes: WNL, Normal Bowel Sounds Genitourinary: Yes: WNL Musculoskeletal: Yes: WNL Extremities: Yes: WNL Edema: Yes Integumentary: Yes: WNL Neurological: Yes: Lethargy, Weakness ...Motor Strength: WNL Psychiatric: Yes: WNL Labs: CBC, BMP 11/14/16 07:45 11/14/16 07:45 INR, PTT INR 1.25 (0.82-1.09) H 11/13/16 12:23 Assessment/Plan - Problems (1) DVT prophylaxis Code(s): [id number] - (2) Fluid overload Code(s): E87.70 - FLUID OVERLOAD, UNSPECIFIED Qualifiers: Hypervolemia type: unspecified Qualified Code(s): E87.70 - Fluid overload, unspecified (3) Hyperkalemia, diminished renal excretion Code(s): E87.5 - HYPERKALEMIA (4) Opiate or related narcotic overdose Code(s): T40.601A - POISONING BY UNSP NARCOTICS, ACCIDENTAL, INIT Qualifiers: Encounter type: initial encounter Injury intent: accidental or unintentional Qualified Code(s): T40.601A - Poisoning by unspecified narcotics, accidental (unintentional), initial encounter (5) Unable to ambulate Assessment/Plan: F/u with physical rehabilitation. Code(s): R26.2 - DIFFICULTY IN WALKING, NOT ELSEWHERE CLASSIFIED (6) Anemia Code(s): D64.9 - ANEMIA, UNSPECIFIED Qualifiers: (7) BPH (benign prostatic hypertrophy) Code(s): N40.0 - BENIGN PROSTATIC HYPERPLASIA WITHOUT LOWER URINRY TRACT SYMP (8) Chronic pain disorder Code(s): G89.4 - CHRONIC PAIN SYNDROME (9) Coronary artery disease Code(s): I25.10 - ATHSCL HEART DISEASE OF [place] CORONARY ARTERY W/O ANG PCTRS Qualifiers: Coronary Disease-Associated Artery/Lesion type: [place] artery [place] vs. transplanted heart: [place] heart Associated angina: without angina Qualified Code(s): I25.10 - Atherosclerotic heart disease of [place] coronary artery without angina pectoris (10) Dependency on pain medication Code(s): F19.20 - OTHER PSYCHOACTIVE SUBSTANCE DEPENDENCE, UNCOMPLICATED (11) ESRD (end stage renal disease) on dialysis Assessment/Plan: HD schedule per neprhologist. Code(s): N18.6 - END STAGE RENAL DISEASE Z99.2 - DEPENDENCE ON RENAL DIALYSIS (12) Hx of CABG Code(s): Z95.1 - PRESENCE OF AORTOCORONARY BYPASS GRAFT (13) Hyperlipidemia Assessment/Plan: On atorvastatin. Code(s): E78.5 - HYPERLIPIDEMIA, UNSPECIFIED Qualifiers: Hyperlipidemia type: pure hypercholesterolemia Qualified Code(s): E78.0 - Pure hypercholesterolemia (14) Hypertension Assessment/Plan: On carvedilol, hydralazine, and Imdur. Code(s): I10 - ESSENTIAL (PRIMARY) HYPERTENSION Qualifiers: Hypertension type: essential hypertension Qualified Code(s): I10 - Essential (primary) hypertension (15) ICD (implantable cardioverter-defibrillator) in place Code(s): Z95.810 - PRESENCE OF AUTOMATIC (IMPLANTABLE) CARDIAC DEFIBRILLATOR (16) PAD (peripheral artery disease) Code(s): I73.9 - PERIPHERAL VASCULAR DISEASE, UNSPECIFIED (17) PAF (paroxysmal atrial fibrillation) Assessment/Plan: On carvediolol for HR control. On apixaban for AC; compliance is crucial, but has been an issue in the past. Code(s): I48.0 - PAROXYSMAL ATRIAL FIBRILLATION (18) PVD (peripheral vascular disease) Code(s): I73.9 - PERIPHERAL VASCULAR DISEASE, UNSPECIFIED (19) S/P mitral valve repair Assessment/Plan: ring annuloplasty; f/u ECHO. Code(s): Z98.89 - OTHER SPECIFIED POSTPROCEDURAL STATES * DO NOT USE * (20) Status post coronary artery stent placement Code(s): Z95.5 - PRESENCE OF CORONARY ANGIOPLASTY IMPLANT AND GRAFT (21) Type 2 diabetes mellitus Code(s): E11.9 - TYPE 2 DIABETES MELLITUS WITHOUT COMPLICATIONS Qualifiers: Diabetes mellitus complication status: with kidney complications Diabetes mellitus complication detail: with chronic kidney disease Chronic kidney disease stage: on chronic dialysis (22) Low back pain Code(s): M54.5 - LOW BACK PAIN Qualifiers: Chronicity: chronic Back pain laterality: left Sciatica presence: without sciatica Qualified Code(s): M54.5 - Low back pain (24) Acute on chronic systolic CHF (congestive heart failure) Assessment/Plan: On carvedilol, hydralazine+Imdur, (apparently unable to tolerate ACEI, ARB, or spinronolactone: hx hyperkalemia). F/u HR and BP, volume status post-HD, electrolytes. Mild TNI elevation (0.18) likely from CHF, additional nonischemis sources; stress Persantine MIBI reportedly without ischemia. F/u ECHO for LVEF, valve status. Pt has ICD; f/u interrogation (order, if not done recently). Code(s): I50.23 - ACUTE ON CHRONIC SYSTOLIC (CONGESTIVE) HEART FAILURE (25) Diabetes Code(s): E11.9 - TYPE 2 DIABETES MELLITUS WITHOUT COMPLICATIONS
--- NOTE | 2016-11-17 13:12 | DS ---
Physical Examination Vital Signs: Vital Signs Temperature 97.9 F 11/17/16 05:52 Pulse Rate 61 11/17/16 05:52 Respiratory Rate 20 11/17/16 09:00 Blood Pressure 151/80 11/17/16 05:52 O2 Sat by Pulse Oximetry (%) 96 11/17/16 09:00 Findings/Remarks: The patient refuses exam Labs: CBC, BMP 11/14/16 07:45 11/14/16 07:45 Discharge Summary Reason For Visit: STUPOR,DEPEND ON PAIN MEDS,DRUG OVERDOSE Current Active Problems Acute on chronic systolic CHF (congestive heart failure) (Acute) CHF exacerbation (Acute) Chest pain (Acute) DVT prophylaxis (Acute) Diabetes (Acute) Fluid overload (Acute) Hip pain, left (Acute) Hyperkalemia, diminished renal excretion (Acute) Opiate or related narcotic overdose (Acute) Stupor (Acute) Subtherapeutic international normalized ratio (INR) (Acute) The administrative codes within the [employer] content you are accessing may have as of 07/12/2016. Please contact your IT Dept/Help Desk and request the latest Regulatory release be installed. IT Dept/Help Desk- Please refer to our FAQ page ([email or web address]) or contact [employer] Customer Support at [email or web address] (Acute) Unable to ambulate (Acute) Anemia (Chronic) BPH (benign prostatic hypertrophy) (Chronic) Chronic pain disorder (Chronic) Chronic systolic heart failure (Chronic) Coronary artery disease (Chronic) DVT (deep venous thrombosis) (Chronic) Dependency on pain medication (Chronic) Drug-seeking behavior (Chronic) ESRD (end stage renal disease) on dialysis (Chronic) History of hemiarthroplasty of left hip (Chronic) Hx of CABG (Chronic) Hyperlipidemia (Chronic) Hypertension (Chronic) ICD (implantable cardioverter-defibrillator) in place (Chronic) Noncompliance of patient with renal dialysis (Chronic) PAD (peripheral artery disease) (Chronic) PAF (paroxysmal atrial fibrillation) (Chronic) PVD (peripheral vascular disease) (Chronic) S/P mitral valve repair (Chronic) Status post coronary artery stent placement (Chronic) Status post percutaneous transluminal coronary angioplasty (Chronic) Type 2 diabetes mellitus (Chronic) Hospital Course: This is a 66 year old male with PMHx of ESRD on HD, CAD, HTN, hyperlipidemia, type 2 DM, chronic systolic heart failure, PAF, RUE DVT, PAD, CVA, anemia, BPH who came to the ER because of generalized pain, became obtunded, was treated with Narcan, and is now confused and combative. 1. Acute encephalopathy - Resolved - Mental status at baseline - Head CT with no acute intracranial hemorrhage, edema, midline shift, mass effect, or skull fracture 2. ESRD on HD - Continue Renvela 3. 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 CAD, history of CABG and stent - Continue aspirin, Coreg, Lipitor, Imdur 5. Hyperlipidemia - Continue Lipitor 6. Type 2 diabetes mellitus - Fingersticks with Novolog sliding scale 7. Chronic systolic heart failure - Stable - Continue Coreg - HD for fluid management 8. Paroxysmal atrial fibrillation - Continue Eliquis 9. Peripheral artery disease 10. History of CVA 11. Anemia secondary to CKD 12. BPH - Continue Flomax 13. Hypertension - Continue Coreg, Hydralazine Per [employer] APPRENTICE progress note on 11/16, the patient was observed pretending to be unresponsive The patient left AMA, he displayed the capacity to make his own decisions. He verbalized an understanding that leaving AMA can cause his condition to worsen and can lead to . Condition: Improved - Instructions Disposition: AGAINST MEDICAL ADVICE - Home Medications Comprehensive Discharge Medication List: Ambulatory Orders Aspirin [ASA -] 81 mg PO DAILY tab.chew 09/03/16 Atorvastatin Ca [Lipitor] 20 mg PO HS tablet 09/03/16 Isosorbide Mononitrate [Imdur -] 30 mg PO DAILY tab.sr.24h 09/03/16 Carvedilol [Coreg -] 12.5 mg PO BID #60 tablet 09/20/16 Gabapentin [Neurontin -] 100 mg PO DAILY capsule 09/20/16 Pantoprazole Sodium [Protonix -] 40 mg PO BID tablet.ec 09/20/16 Sevelamer Carbonate [Renvela -] 800 mg PO TIDCM tab 09/20/16 Tamsulosin HCl [Flomax -] 0.4 mg PO DAILY@0830 cap.er.24h 09/20/16 Tramadol HCl [Ultram -] 50 mg PO Q6H PRN #20 tablet MDD 4 09/26/16 Apixaban [Eliquis -] 2.5 mg PO BID #60 tablet 11/08/16 Hydralazine HCl [Apresoline -] 50 mg PO BID tablet 11/08/16 Insulin Sliding Scale [Novolog Vial Sliding Scale -] 1 vial SQ ACHS units 11/08 This patient is new to me today: Yes Date on this admission: 11/17/16 Emergency Visit: No Critical Care patient: No - Discharge Referral Referred to [facility] Med P.C.: No
[2016-11-17 14:25] VITALS: BP 146/72; PULSE 64; TEMP 97.8
--- NOTE | 2016-11-17 14:48 | PN ---
Physical Exam: SUBJECTIVE: Patient seen and examined. Found patient in room with at bedside. Observed him moaning and then become unresponsive. Did not respond to physical stimuli. Vital signs were taken and were stable. I requested step outside the room. As she started walking slowly with her cane toward the door, observed patient open his eyes and watch walk out. Then he squeezed them shut again and pretended to be nonresponsive. OBJECTIVE: Vital Signs Period Temp Pulse Resp BP Sys/Hinds Pulse Ox Last 24 Hr 97.5 F-97.9 F 60-64 18-20 106-151/50-80 95-96 GENERAL: Awak. In no apparent distress. HEAD: Normal with no signs of trauma. EYES: PERRL, extraocular movements intact, sclera anicteric, conjunctiva clear. No ptosis. LUNGS: Breath sounds equal, clear to auscultation bilaterally, no wheezes, no crackles, no accessory muscle use. HEART: Regular rate and rhythm, S1, S2 without murmur, rub or gallop. ABDOMEN: Soft, nontender, nondistended, normoactive bowel sounds, no guarding, no rebound, no hepatosplenomegaly, no masses. EXTREMITIES: 2+ pulses, warm, well-perfused, no edema. Cachectic limbs. NEUROLOGICAL: Cranial nerves II through XII grossly intact. Normal speech, gait not observed. PSYCH: Normal mood, normal affect. SKIN: Warm, dry, normal turgor, no rashes or lesions noted Laboratory Results - last 24 hr 11/16/16 11/16/16 11/17/16 17:21 20:16 05:48 POC Glucometer 194 175 64 11/17/16 11/17/16 08:52 11:46 POC Glucometer 92 154 Active Medications Generic Name Dose Route Start Last Admin Trade Name Freq PRN Reason Stop Dose Admin Acetaminophen 650 mg 11/13/16 14:34 11/15/16 22:04 Tylenol - PO 650 mg Q4H PRN Administration FEVER OR PAIN Albuterol Sulfate 1 amp 11/13/16 14:34 Ventolin 0.083% Nebulizer Soln - NEB Q4H PRN SHORT OF BREATH/WHEEZING Apixaban 2.5 mg 11/13/16 22:00 11/17/16 09:08 Eliquis - PO 2.5 mg BID NGOC Administration Aspirin 81 mg 11/14/16 10:00 11/17/16 09:08 Asa - PO 81 mg DAILY NGOC Administration Atorvastatin Calcium 20 mg 11/13/16 22:00 11/16/16 21:05 Lipitor - PO 20 mg HS NGOC Administration Carvedilol 12.5 mg 11/13/16 22:00 11/17/16 09:08 Coreg - PO 12.5 mg BID NGOC Administration Epoetin Devin 3,000 unit/ 5,000 unit 11/18/16 10:45 Epoetin Devin 2,000 unit IVPUSH 11/18/16 10:46 ONCE ONE Gabapentin 100 mg 11/14/16 10:00 11/17/16 09:08 Neurontin - PO 100 mg DAILY NGOC Administration Hydralazine HCl 50 mg 11/13/16 22:00 11/17/16 09:08 Apresoline - PO 50 mg BID NGOC Administration Insulin Aspart 1 vial 11/13/16 16:30 11/17/16 11:52 Novolog Vial Sliding Scale - SQ Not Given ACHS [facility] Protocol Isosorbide Mononitrate 30 mg 11/14/16 10:00 11/17/16 09:08 Imdur - PO 30 mg DAILY NGOC Administration Ondansetron HCl 4 mg 11/13/16 14:34 Zofran Injection IVPB Q6H PRN NAUSEA Pantoprazole Sodium 40 mg 11/13/16 22:00 11/17/16 09:10 Protonix - PO 40 mg BID NGOC Administration Sevelamer Carbonate 800 mg 11/13/16 17:30 11/17/16 13:04 Renvela - PO Not Given TIDCM [facility] Tamsulosin HCl 0.4 mg 11/14/16 08:30 11/17/16 09:09 Flomax - PO 0.4 mg DAILY@0830 [facility] Administration ASSESSMENT/PLAN 66 year-old man with a PMH of ESRD on HD, CAD s/p CABG s/p stent s/p PPM/AICD, chronic systolic heart failure, PAF, h/o RUE DVT, PAD, CVA, anemia, BPH, and left hip fracture s/p hemiarthroplasty. Patient came to ED with a complaint of generalized pain. --troponin #1 0.18, troponin #2 0.18, likely secondary to CHF --04/26 stress Persantine MIBI reportedly without ischemia --continue Eliquis, ASA, beta ruth, statin --seen by cardiology Severe systolic heart failure, chronic --2/3 Echo: LV moderately to severely reduced; PPM in RV and lead appears thickened, cannot r/o vegetation; RV grossly normal; BLAE; MV ring present, moderate to severe MR; severe TR --will discuss possible RAZIA with cardiology Paroxysmal atrial fibrillation --rate is well-controlled --on Eliquis Acute encephalopathy --unclear etiology, urine drug screen +opiates but patient on routine pain meds --had HD yesterday --mental status improved today; patient is known to me and he is at baseline mental status --seen by psych, no indication for meds Left hip/leg pain s/p left hip hemiarthroplasty --has refused physical therapy since surgery ESRD on HD --continue HD --continued Renvela --renal following CAD s/p CABG s/p PPM/AICD --ECG shows paced rhythm @ 70 --continue ASA, carvedilol, Lipitor, Imdur Hypertension --continue carvedilol, hydralazine h/o RUE DVT --questionable compliance with meds at home --Eliquis started on admission Hyperlipidemia - Continued Lipitor Type 2 diabetes mellitus - Fingersticks with Novolog sliding scale h/o right right arm DVT --continue Eliquis Peripheral artery disease --extremely poor venous access Anemia secondary to CKD --stable BPH --Continue Flomax F/E/N Fluids: PO intake adequate Electrolytes: replete as indicated Nutrition: renal diet DVT prophylaxis: on Eliquis Dispo: continues to require inpatient care. Full Code. Visit type - Emergency Visit Emergency Visit: Yes ED Registration Date: 11/13/16 Care time: The patient presented to the Emergency Department on the above date and was hospitalized for further evaluation of their emergent condition. - New Patient This patient is new to me today: No - Critical Care Critical Care patient: No
[2016-11-18] MEDS ORDERED: EPOETIN ALFA 2,000 UNITS/1 ML VIAL IVPUSH ONE (10:18)
[2016-11-18] MEDS ORDERED: EPOETIN ALFA 3,000 UNIT, EPOETIN ALFA 2,000 UNIT IVPUSH ONE (10:45)
== END 2016-11-17 15:18 | disposition left against medical advice (07) | DRG 917 ==
LOC: JER 11:28 → JERBED 14:31 → J6S 15:35 → J4W 11-14 11:21
PROVIDERS: ADMIT Internal Medicine; ATTEND Registered Nurse
PROC: 5A1D60Z (ICD-10-PCS; principal; 2016-11-13)
DX: T40.601A Poisoning by unspecified narcotics, accidental (unintentional), initial encounter (principal); G93.40 Encephalopathy, unspecified; N18.6 End stage renal disease; I50.23 Acute on chronic systolic (congestive) heart failure; I13.2 Hypertensive heart and chronic kidney disease with heart failure and with stage 5 chronic kidney disease, or end stage renal disease; F11.20 Opioid dependence, uncomplicated; F19.20 Other psychoactive substance dependence, uncomplicated; I25.10 Atherosclerotic heart disease of native coronary artery without angina pectoris; Z95.1 Presence of aortocoronary bypass graft; Z86.718 Personal history of other venous thrombosis and embolism; D64.9 Anemia, unspecified; Z86.73 Personal history of transient ischemic attack (TIA), and cerebral infarction without residual deficits; Z95.0 Presence of cardiac pacemaker; E11.22 Type 2 diabetes mellitus with diabetic chronic kidney disease; Z99.2 Dependence on renal dialysis; I48.0 Paroxysmal atrial fibrillation; I73.9 Peripheral vascular disease, unspecified; N40.0 Benign prostatic hyperplasia without lower urinary tract symptoms; Z87.891 Personal history of nicotine dependence; D63.1 Anemia in chronic kidney disease; R07.89 Other chest pain; E87.70 Fluid overload, unspecified; G89.4 Chronic pain syndrome; E87.5 Hyperkalemia; Z95.2 Presence of prosthetic heart valve; M54.5 Low back pain; Z76.5 Malingerer [conscious simulation]; Y92.9 Unspecified place or not applicable
CPT/HCPCS: 36415; 70450-TC; 71010-TC; 80048; 80053; 80307; 81003; 81015; 83880; 84443; 84484; 85025; 85610; 87040; 87045; 87046; 87086; 87324; 87449; 93005; 93010; 93306-TC; 97161-GP; 99281-25; 99283-25; 99285-25; J0885

== ENCOUNTER 2016-12-06 03:47 | Observation (INO) | payer MEDICARE, OTHER ==
[2016-12-06 03:55] VITALS: BMI 21.0
[2016-12-06] MEDS ORDERED: ASPIRIN 81 MG CHEWABLE TABLETS PO ONE (05:30)
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
--- NOTE | 2016-12-06 07:37 | PDOC ---
*Physical Exam - Vital Signs Last Vital Signs Temp Pulse Resp BP Pulse Ox 97.8 F 54 L 19 158/65 98 12/06/16 03:53 12/06/16 03:53 12/06/16 03:53 12/06/16 03:53 12/06/16 03:53 - Physical Exam General Appearance: Yes: Appropriately Dressed. No: Apparent Distress HEENT: positive: Normal Voice Neck: positive: Supple Respiratory/Chest: positive: Lungs Clear, Normal Breath Sounds. negative: Respiratory Distress Cardiovascular: positive: Regular Rate, S1, S2 Gastrointestinal/Abdominal: positive: Soft. negative: Tender Integumentary: positive: Dry, Warm Neurologic: positive: Fully Oriented, Alert, Normal Mood/Affect Heart Score/ECG Review - History History: Moderately suspicious - Electrocardiogram EKG: Normal - Age Age: 45-65 - Risk Factors Risk Factors Heart Score: Yes Hx Hypercholesterolemia, Yes Hx Hypertension, Yes Hx Diabetes Based on the list above the patient has:: >/=3 risk factors or Hx atherosclerotic disease - Troponin Troponin: </= normal limit - Score Heart Score - Total: 4 ED Treatment Course - LABORATORY CBC & Chemistry Diagram: 12/06/16 05:52 12/06/16 05:52 Medical Decision Making - Medical Decision Making 12/06/16 07:35 Patient signed out to me at 7 AM by HELEN Huynh This is a 66-year-old male with significant cardiac history including AICD pacemaker, CABG, ESRD on HD, multiple ED visits for chest pain, usually req narcotics as per prior team. Most recently came in with generalized body aches and became obtunded in ED, which improved with Narcan. Patient was admitted but ended up signing out AMA. Here with chest pain times several hours. Stable in ED as per prior team. EKG w/ paced rhythm. Trops pending. Most likely will need at least observation for telemetry. 12/06/16 08:03 12/06/16 08:04 On reassessment, patient well-appearing, in no apparent distress. Requesting narcotics and states if he does not get it, he wants to be transferred to [facility]. I explained to patient that we only transfer patient as needed on a medical basis. I told patient that given cardiac history, we will be giving aspirin at this time and get blood work with most likely obs admission. Pt currently agreeable to w/u 12/06/16 08:17 12/06/16 09:13 12/06/16 10:12 12/06/16 10:12 Case d/w hospitalist and pt admitted to obs *DC/Admit/Observation/Transfer Diagnosis at time of Disposition: Chest pain Qualifiers: Chest pain type: unspecified Qualified Code(s): R07.9 - Chest pain, unspecified - Discharge Dispostion Condition at time of disposition: Fair Admit: Yes - Referrals Referrals: STAFF,NOT ON [Primary Care Provider] -
[2016-12-06 08:35] LABS: BASOPHIL 0.8 % (0-2.0); MCH 29.3 pg (25.7-33.7); MCHC 31.6 g/dl (32.0-35.9); MEAN CELL VOLUME 92.8 fl (80-96); MEAN PLT VOLUME 8.6 fl (7.5-11.1); NEUTROPHILS 79.1 % (42.8-82.8); PLATELET COUNT 112 K/MM3 (134-434); RDW 18.8 % (11.9-15.9); WHITE BLOOD COUNT 6.4 K/mm3 (4.0-10.0)
[2016-12-06 08:52] LABS: INR 1.08 (0.82-1.09); PROTHROMBIN TIME (PATIENT) 11.9 SEC (9.98-11.88)
[2016-12-06 08:56] LABS: ALBUMIN 2.7 g/dl (3.4-5.0); BILIRUBIN,TOTAL 0.4 mg/dL (0.2-1.0); CALCIUM 8.2 mg/dL (8.5-10.1); CREATININE 5.4 mg/dL (0.7-1.3); MAGNESIUM 2.2 mg/dL (1.8-2.4); TOT PROT 6.6 g/dl (6.4-8.2)
[2016-12-06 08:59] LABS: TROPONIN I 0.05 ng/ml (0.00-0.05)
[2016-12-06] MEDS ORDERED: NITROGLYCERIN SUBLINGUAL 1/150 0.4 MG TAB SL PRN (10:10)
--- NOTE | 2016-12-06 10:30 | HP ---
CHIEF COMPLAINT: Left sided chest pain x 1 day PCP: NONE HISTORY OF PRESENT ILLNESS: 66 year old male with prior history of CAD presents to the emergency department complaining of left sided chest pain that started last night, is 8/10 in intensity, constant ,non radiating. Associated with shortness of breath. He denied nausea vomiting or diaphoresis. Multiple episodes of chest pain before, with most recent admission and evaluation in the beginning of November. Most recent documented MIBI 04/2015 revealing inferolateral akinesia/ fixed defect . Does not remember when his last cardiac cath. Requesting narcotics in ER. PAST MEDICAL HISTORY: CAD Ischemic Cardiomyopathy with EF < 40% PAD AFIB HTN ESRD ON HD TTS DM PAST SURGICAL HISTORY: Mitral Annuloplasty CABG ( GUADALUPE to LAD, SVG to LPL) PCI with KAT to Circ prior PCI with KAT to LAD, LPL Social History: Smoking: denies Alcohol: denies Drugs: yes, prescription opioids Family History: HTN - mother , father DM Allergies No Known Drug Allergies Allergy (Verified 12/06/16 03:55) HOME MEDICATIONS: Home Medications Medication Instructions Recorded Aspirin [ASA -] 81 mg PO DAILY tab.chew 09/03/16 Atorvastatin Ca [Lipitor] 20 mg PO HS tablet 09/03/16 Isosorbide Mononitrate [Imdur -] 30 mg PO DAILY tab.sr.24h 09/03/16 Carvedilol [Coreg -] 12.5 mg PO BID #60 tablet 09/20/16 Gabapentin [Neurontin -] 100 mg PO DAILY capsule 09/20/16 Pantoprazole Sodium [Protonix -] 40 mg PO BID tablet.ec 09/20/16 Sevelamer Carbonate [Renvela -] 800 mg PO TIDCM tab 09/20/16 Tamsulosin HCl [Flomax -] 0.4 mg PO DAILY@0830 cap.er.24h 09/20/16 Tramadol HCl [Ultram -] 50 mg PO Q6H PRN #20 tablet MDD 4 09/26/16 Apixaban [Eliquis -] 2.5 mg PO BID #60 tablet 11/08/16 Hydralazine HCl [Apresoline -] 50 mg PO BID tablet 11/08/16 Insulin Sliding Scale [Novolog 1 vial SQ ACHS units 11/08/16 Vial Sliding Scale -] REVIEW OF SYSTEMS CONSTITUTIONAL: Absent: fever, chills, diaphoresis, generalized weakness, malaise, loss of appetite, weight change HEENT: Absent: rhinorrhea, nasal congestion, throat pain, throat swelling, difficulty swallowing, mouth swelling, ear pain, eye pain, visual changes CARDIOVASCULAR: syncope, palpitations, lightheadedness, peripheral edema RESPIRATORY: Absent: cough orthopnea, wheezing, stridor, hemoptysis GASTROINTESTINAL: Absent: abdominal pain, abdominal distension, nausea, vomiting, diarrhea, constipation, melena, hematochezia GENITOURINARY: on HD ' MUSCULOSKELETAL: Absent: myalgia, arthralgia, joint swelling, back pain, neck pain SKIN: Absent: rash, itching, pallor HEMATOLOGIC/IMMUNOLOGIC: Absent: easy bleeding, easy bruising, lymphadenopathy, frequent infections ENDOCRINE: Absent: unexplained weight gain, unexplained weight loss, heat intolerance, cold intolerance NEUROLOGIC: Absent: headache, focal weakness or paresthesias, dizziness, unsteady gait, seizure, mental status changes, bladder or bowel incontinence PSYCHIATRIC: Absent: anxiety, depression, suicidal or homicidal ideation, hallucinations. PHYSICAL EXAMINATION Vital Signs - 24 hr 12/06/16 03:53 Temperature 97.8 F Pulse Rate 54 L Respiratory 19 Rate Blood Pressure 158/65 O2 Sat by Pulse 98 Oximetry (%) GENERAL: Awake, alert, and fully oriented, in no acute distress. HEAD: Normal with no signs of trauma. EYES: Pupils equal, round and reactive to light, extraocular movements intact, sclera anicteric, conjunctiva clear. No lid lag. EARS, NOSE, THROAT: Ears normal, nares patent, oropharynx clear without exudates.Dry mucous membranes NECK: Normal range of motion, supple without lymphadenopathy, JVD, or masses. LUNGS: scattered basilar rales HEART: Regular rate and rhythm, normal S1 and S2 without murmur, rub or gallop. ABDOMEN: Soft, nontender, not distended, normoactive bowel sounds, no guarding, no rebound, no masses. No hepatomegaly or splenomegaly. MUSCULOSKELETAL: Normal range of motion at all joints. No bony deformities or tenderness. No CVA tenderness. UPPER EXTREMITIES: 2+ pulses, warm, well-perfused. No cyanosis. No clubbing. Cap refill <2 seconds. No peripheral edema. LOWER EXTREMITIES: 2+ pulses, warm, well-perfused. No calf tenderness. No peripheral edema. NEUROLOGICAL: Cranial nerves II-XII intact. Normal speech. Normal gait. PSYCHIATRIC: Cooperative. Good eye contact. Appropriate mood and affect. SKIN: Warm, dry, normal turgor, no rashes or lesions noted. Laboratory Results - last 24 hr 12/06/16 12/06/16 12/06/16 05:52 05:52 05:52 WBC 6.4 RBC 3.22 L Hgb 9.4 L Hct 29.9 L MCV 92.8 MCHC 31.6 L RDW 18.8 H Plt Count 112 L MPV 8.6 Neutrophils % 79.1 Lymphocytes % 9.2 Monocytes % 8.9 Eosinophils % 2.0 Basophils % 0.8 INR 1.08 Sodium 141 Potassium 4.9 D Chloride 105 Carbon Dioxide 27 Anion Gap 9 BUN 36 H D Creatinine 5.4 H D Creat Clearance w eGFR 10.65 Random Glucose 104 Calcium 8.2 L Magnesium 2.2 Total Bilirubin 0.4 AST 20 D ALT 15 D Alkaline Phosphatase 173 H Creatine Kinase 91 Troponin I 0.05 D Total Protein 6.6 Albumin 2.7 L EKG - paced. CXR - personally reviewed . Mild pulmonary vascular congestion with possible LLL infiltrate. ASSESSMENT/PLAN: 1. Chest pain - in a patient with known CAD CABG . Known ischemic cardiomyopathy with low EF. We can repeat troponin, however in this case would not change the management . Considering multiple risk factors best diagnostic option would be ccath , however without results of most recent ccath it is not clear if patient is a candidate for re vascularisation. - Cardiology evaluation - BP monitoring - AICD interrogation - will monitor on telemetry and optimize BP control 2. Ischemic Cardiomyopathy , EF < 40 % - with evidence of mild pulmonary congestion . - needs HD today 3. Abnormal CXR suggestive of possible LLL infiltrate. No signs of SIRS. - will obtain PA /LAT XR and re evaluate. If indeed an infiltrate will treat for HCAP. 4. AFIB - rate controlled , on aticoagulation 5. ESRD - on HD TTS - renal diet - plan for HD today and per schedule 6. Opiate dependence ( reported in history) - no signs of withdrawal , no narcotics noted in home med list - monitor - pain control with nsaids 7. DM - - insulin SS with TIDAC monitoring of BG - OP follow up management 8. DVT ppx - on anticoagulation Hospitalize for observation . Visit type - Emergency Visit Emergency Visit: Yes Care time: The patient presented to the Emergency Department on the above date and was hospitalized for further evaluation of their emergent condition. - New Patient This patient is new to me today: Yes Date on this admission: 12/06/16 - Critical Care Critical Care patient: No
[2016-12-06] MEDS: PANTOPRAZOLE 40 MG TABLET (FP) PO SCH ×2 (10:58→22:04)
[2016-12-06] MEDS: traMADol HCL 50 MG TABLET PO PRN ×2 (10:58→18:34)
[2016-12-06] MEDS: ISOSORBIDE MONONITRATE 30 MG TAB.SR.24H (FP) PO SCH (10:58)
[2016-12-06] MEDS ORDERED: INSULIN SLIDING SCALE (NOVOLOG) 1 VIAL SQ SCH (11:00)
[2016-12-06] MEDS: SEVELAMER CARBONATE 800 MG TAB (FP) PO SCH ×2 (13:31→17:30)
[2016-12-06] MEDS ORDERED: HEPARIN NA (PORCINE) 5,000 UNITS/ML 1ML VIAL IVPUSH ONE (14:55)
--- NOTE | 2016-12-06 15:05 | CONSULT ---
Consult Consult Specialty:: Nephrology Reason for Consultation:: ESRD - History of Present Illness Chief Complaint: chest pain History of Present Illness: Pt is a 66 year old male with pmhx of ESRD, DVT, HTN, valvular hear disease, a- fib and PPM who presents to the ER complaining of chest pain. Pt says pain was substernal and described it as sharp. He says it happened yesterday and woke him up from sleep. He denies palpitations. He last had on . He has a long history of non compliance. He currently is awake and alert. He denies chest pain. 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: Yes: CVA Cardio/Vascular: Yes: AFIB (paroxysmal), CAD (CABG, PCI/KAT), CHF, Deep Vein Thrombosis, HTN, Hyperlipdemia Renal/: Yes: Renal Failure, Hemodialysis Psych: Yes: Anxiety Endocrine: Yes: Diabetes Mellitus - Past Surgical History Past Surgical History: Yes: AICD, Amputation (right 3rd finger), CABG (3v CABG and mitral ring 2009 (GUADALUPE->LAD, SVG->LPL, SVG->D1 jump D2.), Stent - Alcohol/Substance Use Hx Alcohol Use: No History of Substance Use: reports: Prescription - Smoking History Smoking history: Never smoked Have you smoked in the past 12 months: No Aproximately how many cigarettes per day: 0 If you are a former smoker, when did you quit?: 2013 - Social History Usual Living Arrangement: With Spouse ADL: Independent History of Recent Travel: No Home Medications - Allergies Allergies/Adverse Reactions: Allergies Allergy/AdvReac Type Severity Reaction Status Date / Time No Known Drug Allergies Allergy Verified 12/06/16 03:55 - Home Medications Home Medications: Ambulatory Orders Aspirin [ASA -] 81 mg PO DAILY tab.chew 09/03/16 Atorvastatin Ca [Lipitor] 20 mg PO HS tablet 09/03/16 Isosorbide Mononitrate [Imdur -] 30 mg PO DAILY tab.sr.24h 09/03/16 Carvedilol [Coreg -] 12.5 mg PO BID #60 tablet 09/20/16 Gabapentin [Neurontin -] 100 mg PO DAILY capsule 09/20/16 Pantoprazole Sodium [Protonix -] 40 mg PO BID tablet.ec 12/10/16 Sevelamer Carbonate [Renvela -] 800 mg PO TIDCM tab 09/20/16 Tamsulosin HCl [Flomax -] 0.4 mg PO DAILY@0830 cap.er.24h 09/20/16 Tramadol HCl [Ultram -] 50 mg PO Q6H PRN #20 tablet MDD 4 09/26/16 Apixaban [Eliquis -] 2.5 mg PO BID #60 tablet 11/08/16 Hydralazine HCl [Apresoline -] 50 mg PO BID tablet 11/08/16 Insulin Sliding Scale [Novolog Vial Sliding Scale -] 1 vial SQ ACHS units 11/08 Family Disease History - Family Disease History Family Disease History: Diabetes: Brother, Heart Disease: Brother, Other: Father (Stroke) Review of Systems - Review of Systems Constitutional: reports: No Symptoms Eyes: reports: No Symptoms HENT: reports: No Symptoms Neck: reports: No Symptoms Cardiovascular: reports: Chest Pain. denies: Edema, Palpitations Respiratory: denies: SOB Gastrointestinal: reports: No Symptoms Genitourinary: reports: No Symptoms Musculoskeletal: reports: No Symptoms Integumentary: reports: No Symptoms Neurological: reports: No Symptoms Endocrine: reports: No Symptoms Physical Exam Vital Signs: Vital Signs Temperature 97.6 F 12/06/16 13:50 Pulse Rate 59 L 12/06/16 14:00 Respiratory Rate 20 12/06/16 14:00 Blood Pressure 162/73 12/06/16 14:00 O2 Sat by Pulse Oximetry (%) 99 12/06/16 11:48 Constitutional: Yes: Calm Eyes: Yes: Conjunctiva Clear HENT: Yes: Atraumatic Neck: Yes: Supple Cardiovascular: Yes: S1, S2 Respiratory: Yes: CTA Bilaterally Gastrointestinal: Yes: Soft Edema: Yes Edema: LUE: 1+, RUE: 1+, LLE: Trace, RLE: Trace Neurological: Yes: Oriented Psychiatric: Yes: Oriented Labs: Laboratory Tests 11/14/16 12/06/16 12/06/16 07:45 05:52 05:52 WBC 6.4 Hgb 9.3 L D 9.4 L Plt Count 112 L Sodium 141 Potassium 4.9 D Chloride 105 Carbon Dioxide 27 Anion Gap 9 BUN 36 H D Creatinine 5.4 H D Creat Clearance w eGFR 10.65 Imaging - Results Chest X-ray: Report Reviewed Problem List - Problems (1) Chest pain Code(s): R07.9 - CHEST PAIN, UNSPECIFIED Qualifiers: Chest pain type: unspecified Qualified Code(s): R07.9 - Chest pain, unspecified (2) Anemia Code(s): D64.9 - ANEMIA, UNSPECIFIED Qualifiers: (3) BPH (benign prostatic hypertrophy) Code(s): N40.0 - BENIGN PROSTATIC HYPERPLASIA WITHOUT LOWER URINRY TRACT SYMP (4) Hx of CABG Code(s): Z95.1 - PRESENCE OF AORTOCORONARY BYPASS GRAFT (5) Hyperlipidemia Code(s): E78.5 - HYPERLIPIDEMIA, UNSPECIFIED Qualifiers: Hyperlipidemia type: pure hypercholesterolemia Qualified Code(s): E78.0 - Pure hypercholesterolemia (6) Hypertension Code(s): I10 - ESSENTIAL (PRIMARY) HYPERTENSION Qualifiers: Hypertension type: essential hypertension Qualified Code(s): I10 - Essential (primary) hypertension (7) ICD (implantable cardioverter-defibrillator) in place Code(s): Z95.810 - PRESENCE OF AUTOMATIC (IMPLANTABLE) CARDIAC DEFIBRILLATOR (8) PVD (peripheral vascular disease) Code(s): I73.9 - PERIPHERAL VASCULAR DISEASE, UNSPECIFIED (9) ESRD (end stage renal disease) on dialysis Code(s): N18.6 - END STAGE RENAL DISEASE Z99.2 - DEPENDENCE ON RENAL DIALYSIS Assessment/Plan Current Medications Generic Name Dose Route Start Last Admin Trade Name Freq PRN Reason Stop Dose Admin Apixaban 2.5 mg 12/06/16 22:00 Eliquis - PO BID NGOC Aspirin 81 mg 12/07/16 10:00 Asa - PO DAILY NGOC Atorvastatin Calcium 20 mg 12/06/16 22:00 Lipitor - PO HS NGOC Carvedilol 12.5 mg 12/06/16 22:00 Coreg - PO BID NGOC Gabapentin 100 mg 12/07/16 10:00 Neurontin - PO DAILY NGOC Hydralazine HCl 50 mg 12/06/16 22:00 Apresoline - PO BID NGOC Insulin Aspart 1 vial 12/06/16 11:00 Novolog Vial Sliding Scale - SQ ACHS NGOC Protocol Isosorbide Mononitrate 30 mg 12/06/16 10:15 12/06/16 10:58 Imdur - PO 30 mg DAILY NGOC Administration Pantoprazole Sodium 40 mg 02/25/17 10:15 12/06/16 10:58 Protonix - PO 40 mg BID NGOC Administration Sevelamer Carbonate 800 mg 12/06/16 12:00 12/06/16 13:31 Renvela - PO Not Given TIDCM NGOC Tamsulosin HCl 0.4 mg 12/07/16 08:30 Flomax - PO DAILY@0830 NGOC Tramadol HCl 50 mg 12/06/16 10:14 12/06/16 10:58 Ultram - PO 50 mg Q6H PRN Administration PAIN Laboratory Tests 12/06/16 05:52 Troponin I 0.05 D Impression 1. ESRD 2. CAD 3. HTN 4. narcotic dependence 5. non compliance 6. pleural effusions 7. anemia 8. chest pain 9. DVT 10. hx GI bleed Plan - will arrange for HD today - cardio eval for chest pain - monitor on tele, will arrange for HD at bedside - monitor BP - will follow while in hospital - pt on aranesp as outpt for anemia Dr Campos
--- NOTE | 2016-12-06 17:37 | CON.CARD ---
Consult Consult Specialty:: cardiology Reason for Consultation:: chest pain - History of Present Illness History of Present Illness: 66 yo M with significant PMH of ESRD(HD T, Th, and Sat.), ESRD-->HD 3x/wk, DM, anemia, CVA, CAD s/p pacemaker, s/p CABG, CHF, HTN, HLD, DVT, AFib, and GI bleed , who presents to the emergency department for chest pain. Patient is well known to this ER. Patient c/o chest pain x 6 hours and refuses to elaborate, continuously requesting for pain medication. 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: CVA Cardio/Vascular: Yes: AFIB (paroxysmal), CAD (CABG, PCI/KAT), CHF, Deep Vein Thrombosis, HTN, Hyperlipdemia Renal/: Yes: Renal Failure, Hemodialysis Psych: Yes: Anxiety Endocrine: Yes: Diabetes Mellitus - Past Surgical History Past Surgical History: Yes: AICD, Amputation (right 3rd finger), CABG (3v CABG and mitral ring 2009 (GUADALUPE->LAD, SVG->LPL, SVG->D1 jump D2.), Stent - Alcohol/Substance Use Hx Alcohol Use: No History of Substance Use: reports: Prescription - Smoking History Smoking history: Never smoked Have you smoked in the past 12 months: No Aproximately how many cigarettes per day: 0 If you are a former smoker, when did you quit?: 2013 - Social History Usual Living Arrangement: With Spouse ADL: Independent History of Recent Travel: No Home Medications - Allergies Allergies/Adverse Reactions: Allergies Allergy/AdvReac Type Severity Reaction Status Date / Time No Known Drug Allergies Allergy Verified 12/06/16 03:55 - Home Medications Home Medications: Ambulatory Orders Aspirin [ASA -] 81 mg PO DAILY tab.chew 09/03/16 Atorvastatin Ca [Lipitor] 20 mg PO HS tablet 09/03/16 Isosorbide Mononitrate [Imdur -] 30 mg PO DAILY tab.sr.24h 09/03/16 Carvedilol [Coreg -] 12.5 mg PO BID #60 tablet 09/20/16 Gabapentin [Neurontin -] 100 mg PO DAILY capsule 09/20/16 Pantoprazole Sodium [Protonix -] 40 mg PO BID tablet.ec 09/20/16 Sevelamer Carbonate [Renvela -] 800 mg PO TIDCM tab 09/20/16 Tamsulosin HCl [Flomax -] 0.4 mg PO DAILY@0830 cap.er.24h 09/20/16 Tramadol HCl [Ultram -] 50 mg PO Q6H PRN #20 tablet MDD 4 09/26/16 Apixaban [Eliquis -] 2.5 mg PO BID #60 tablet 11/08/16 Hydralazine HCl [Apresoline -] 50 mg PO BID tablet 11/08/16 Insulin Sliding Scale [Novolog Vial Sliding Scale -] 1 vial SQ ACHS units 11/08 Family Disease History - Family Disease History Family Disease History: Diabetes: Brother, Heart Disease: Brother, Other: Father (Stroke) - Risk Factors Known Risk Factors: Yes: Age, Diabetes Mellitus, Gender, Hypercholesterolemia, Hypertension, Physical Inactivity, Other (ESRD) Vital Signs: Vital Signs Temperature 97.6 F 12/06/16 13:50 Pulse Rate 65 12/06/16 17:20 Respiratory Rate 18 12/06/16 17:20 Blood Pressure 133/63 12/06/16 17:20 O2 Sat by Pulse Oximetry (%) 97 12/06/16 16:03 Constitutional: Yes: [place], Thin, Other (undergoing HD) - Other Data Labs, Other Data: INR, PTT INR 1.08 (0.82-1.09) 12/06/16 05:52 Problem List - Problems (1) Hyperkalemia, diminished renal excretion Code(s): E87.5 - HYPERKALEMIA (2) Anemia Code(s): D64.9 - ANEMIA, UNSPECIFIED Qualifiers: (3) Chronic systolic heart failure Code(s): I50.22 - CHRONIC SYSTOLIC (CONGESTIVE) HEART FAILURE (4) Coronary artery disease Code(s): I25.10 - ATHSCL HEART DISEASE OF [place] CORONARY ARTERY W/O ANG PCTRS Qualifiers: Coronary Disease-Associated Artery/Lesion type: [place] artery [place] vs. transplanted heart: [place] heart Associated angina: without angina Qualified Code(s): I25.10 - Atherosclerotic heart disease of [place] coronary artery without angina pectoris (5) History of hemiarthroplasty of left hip Code(s): Z96.642 - PRESENCE OF LEFT ARTIFICIAL HIP JOINT (6) Hx of CABG Code(s): Z95.1 - PRESENCE OF AORTOCORONARY BYPASS GRAFT (7) Hyperlipidemia Code(s): E78.5 - HYPERLIPIDEMIA, UNSPECIFIED Qualifiers: Hyperlipidemia type: pure hypercholesterolemia Qualified Code(s): E78.0 - Pure hypercholesterolemia (8) Hypertension Code(s): I10 - ESSENTIAL (PRIMARY) HYPERTENSION Qualifiers: Hypertension type: essential hypertension Qualified Code(s): I10 - Essential (primary) hypertension (9) ICD (implantable cardioverter-defibrillator) in place Code(s): Z95.810 - PRESENCE OF AUTOMATIC (IMPLANTABLE) CARDIAC DEFIBRILLATOR (10) PAF (paroxysmal atrial fibrillation) Code(s): I48.0 - PAROXYSMAL ATRIAL FIBRILLATION (11) PVD (peripheral vascular disease) Code(s): I73.9 - PERIPHERAL VASCULAR DISEASE, UNSPECIFIED (12) S/P mitral valve repair Code(s): Z98.89 - OTHER SPECIFIED POSTPROCEDURAL STATES * DO NOT USE * (13) Status post coronary artery stent placement Code(s): Z95.5 - PRESENCE OF CORONARY ANGIOPLASTY IMPLANT AND GRAFT (14) Type 2 diabetes mellitus Code(s): E11.9 - TYPE 2 DIABETES MELLITUS WITHOUT COMPLICATIONS Qualifiers: Diabetes mellitus complication status: with kidney complications Diabetes mellitus complication detail: with chronic kidney disease Chronic kidney disease stage: on chronic dialysis (15) Chest pain of uncertain etiology Assessment/Plan: Palpation of central chest wall reproduces the chest pain that he initiallyh complained about. F/u TNI serially; EKG; telemetry. On HD. Code(s): R07.89 - OTHER CHEST PAIN (16) Hyperkalemia Code(s): E87.5 - HYPERKALEMIA (17) Dependency on pain medication Code(s): F19.20 - OTHER PSYCHOACTIVE SUBSTANCE DEPENDENCE, UNCOMPLICATED (18) ESRD (end stage renal disease) on dialysis Code(s): N18.6 - END STAGE RENAL DISEASE Z99.2 - DEPENDENCE ON RENAL DIALYSIS
--- NOTE | 2016-12-06 20:58 | EKG ---
Test Reason : Blood Pressure : / mmHG Vent. Rate : 063 BPM Atrial Rate : 326 BPM P-R Int : 000 ms QRS Dur : 158 ms QT Int : 498 ms P-R-T Axes : 076 099 -55 degrees QTc Int : 509 ms AV dual-paced rhythm WITH OCCASIONAL atrial-paced complexes AND WITH OCCASIONAL PREMATURE VENTRICULAR COMPLEXES Biventricular pacemaker detected ABNORMAL ECG WHEN COMPARED WITH ECG OF 06-DEC-2016 04:03, VENT. RATE HAS DECREASED BY 5 BPM Confirmed by FRANKIE GIANG MD ([id number]) on 12/06/2016 8:57:53 PM Referred By: Yoly FULLER Confirmed By:FRANKIE GIANG MD
--- NOTE | 2016-12-06 21:04 | EKG ---
Test Reason : Blood Pressure : / mmHG Vent. Rate : 068 BPM Atrial Rate : 064 BPM P-R Int : 000 ms QRS Dur : 158 ms QT Int : 466 ms P-R-T Axes : 000 019 -24 degrees QTc Int : 495 ms Ventricular-paced rhythm WITH OCCASIONAL PREMATURE VENTRICULAR COMPLEXES Biventricular pacemaker detected ABNORMAL ECG WHEN COMPARED WITH ECG OF 14-NOV-2016 08:17, VENT. RATE HAS DECREASED BY 27 BPM Confirmed by PADMAJA FLANNERY, FRANKIE ([id number]) on 12/06/2016 9:03:32 PM Referred By: Confirmed By:FRANKIE GIANG MD
[2016-12-06] MEDS ORDERED: ATORVASTATIN CA 20 MG TABLET (FP) PO SCH (22:00)
[2016-12-06] MEDS: CARVEDILOL 12.5 MG TABLET (FP) PO SCH (22:03)
[2016-12-06] MEDS: hydrALAZINE HCL 50 MG TABLET (FP) PO SCH (22:03)
[2016-12-06] MEDS: APIXABAN 2.5 MG TABLET PO SCH (22:04)
[2016-12-06] MEDS ORDERED: morphine CARPU-JECT 2 MG/1 ML DISP.SYRIN ONE (22:10)
[2016-12-06] MEDS: morphine CARPU-JECT 2 MG/1 ML DISP.SYRIN IVPUSH PRN (22:11)
[2016-12-07] MEDS: traMADol HCL 50 MG TABLET PO PRN (01:00)
[2016-12-07] MEDS: morphine CARPU-JECT 2 MG/1 ML DISP.SYRIN IVPUSH PRN (05:49)
[2016-12-07] MEDS: SEVELAMER CARBONATE 800 MG TAB (FP) PO SCH ×2 (08:04→11:53)
[2016-12-07] MEDS ORDERED: TAMSULOSIN HCL 0.4 MG CAP.ER.24H (FP) PO SCH (08:30)
[2016-12-07] MEDS: PANTOPRAZOLE 40 MG TABLET (FP) PO SCH (09:28)
[2016-12-07] MEDS: ISOSORBIDE MONONITRATE 30 MG TAB.SR.24H (FP) PO SCH (09:29)
[2016-12-07] MEDS: CARVEDILOL 12.5 MG TABLET (FP) PO SCH (09:29)
[2016-12-07] MEDS: APIXABAN 2.5 MG TABLET PO SCH (09:29)
[2016-12-07] MEDS: hydrALAZINE HCL 50 MG TABLET (FP) PO SCH (09:29)
[2016-12-07] MEDS ORDERED: ASPIRIN 81 MG CHEWABLE TABLETS PO SCH (10:00)
[2016-12-07] MEDS ORDERED: GABAPENTIN 100 MG CAPSULE (FP) PO SCH (10:00)
[2016-12-07 10:12] LABS: TROPONIN I 0.03 ng/ml (0.00-0.05)
[2016-12-07 10:17] LABS: INR 1.23 (0.82-1.09); PROTHROMBIN TIME (PATIENT) 13.6 SEC (9.98-11.88)
[2016-12-07 14:10] VITALS: BP 112/57; PULSE 60
[2016-12-07 15:19] VITALS: TEMP 97.5
--- NOTE | 2016-12-07 16:18 | PN ---
Progress Note, Physician History of Present Illness: Pt seen and examined at bedside. He is awake and alert. He denies chest pain. He tolerated HD last night. - Current Medication List Current Medications: Active Medications Apixaban (Eliquis -) 2.5 mg PO BID [facility] Last Admin: 12/07/16 09:29 Dose: 2.5 mg Aspirin (Asa -) 81 mg PO DAILY [facility] Last Admin: 12/07/16 09:32 Dose: 81 mg Atorvastatin Calcium (Lipitor -) 20 mg PO HS [facility] Last Admin: 12/06/16 22:04 Dose: 20 mg Carvedilol (Coreg -) 12.5 mg PO BID [facility] Last Admin: 12/07/16 09:29 Dose: 12.5 mg Gabapentin (Neurontin -) 100 mg PO DAILY [facility] Last Admin: 12/07/16 09:32 Dose: 100 mg Hydralazine HCl (Apresoline -) 50 mg PO BID [facility] Last Admin: 12/07/16 09:29 Dose: 50 mg Insulin Aspart (Novolog Vial Sliding Scale -) 1 vial SQ ACHS [facility] PRN Reason: Protocol Isosorbide Mononitrate (Imdur -) 30 mg PO DAILY [facility] Last Admin: 12/07/16 09:29 Dose: 30 mg Morphine Sulfate (Morphine Injection -) 1 mg IVPUSH Q6H PRN PRN Reason: PAIN Stop: 12/07/16 22:03 Last Admin: 12/07/16 05:49 Dose: 1 mg Pantoprazole Sodium (Protonix -) 40 mg PO BID [facility] Last Admin: 12/07/16 09:28 Dose: 40 mg Sevelamer Carbonate (Renvela -) 800 mg PO TIDCM [facility] Last Admin: 12/07/16 11:53 Dose: 800 mg Tamsulosin HCl (Flomax -) 0.4 mg PO DAILY@0830 [facility] Last Admin: 12/07/16 08:04 Dose: 0.4 mg Tramadol HCl (Ultram -) 50 mg PO Q6H PRN PRN Reason: PAIN Last Admin: 12/07/16 01:00 Dose: 50 mg - Objective Vital Signs: Vital Signs Temperature 97.5 F L 12/07/16 14:00 Pulse Rate 60 12/07/16 14:00 Respiratory Rate 20 12/07/16 14:00 Blood Pressure 112/57 12/07/16 14:00 O2 Sat by Pulse Oximetry (%) 99 12/07/16 08:42 Constitutional: Yes: Calm Eyes: Yes: Conjunctiva Clear HENT: Yes: Atraumatic Neck: Yes: Supple Cardiovascular: Yes: S1, S2 Respiratory: Yes: CTA Bilaterally Gastrointestinal: Yes: Soft Genitourinary: Yes: WNL Edema: No Neurological: Yes: Oriented Psychiatric: Yes: Oriented Labs: INR, PTT INR 1.23 (0.82-1.09) H 12/07/16 09:10 Problem List - Problems (1) Chest pain Code(s): R07.9 - CHEST PAIN, UNSPECIFIED Qualifiers: Chest pain type: unspecified Qualified Code(s): R07.9 - Chest pain, unspecified (2) Anemia Code(s): D64.9 - ANEMIA, UNSPECIFIED Qualifiers: (3) BPH (benign prostatic hypertrophy) Code(s): N40.0 - BENIGN PROSTATIC HYPERPLASIA WITHOUT LOWER URINRY TRACT SYMP (4) Hx of CABG Code(s): Z95.1 - PRESENCE OF AORTOCORONARY BYPASS GRAFT (5) Hyperlipidemia Code(s): E78.5 - HYPERLIPIDEMIA, UNSPECIFIED Qualifiers: Hyperlipidemia type: pure hypercholesterolemia Qualified Code(s): E78.0 - Pure hypercholesterolemia (6) Hypertension Code(s): I10 - ESSENTIAL (PRIMARY) HYPERTENSION Qualifiers: Hypertension type: essential hypertension Qualified Code(s): I10 - Essential (primary) hypertension (7) ICD (implantable cardioverter-defibrillator) in place Code(s): Z95.810 - PRESENCE OF AUTOMATIC (IMPLANTABLE) CARDIAC DEFIBRILLATOR (8) PVD (peripheral vascular disease) Code(s): I73.9 - PERIPHERAL VASCULAR DISEASE, UNSPECIFIED (9) ESRD (end stage renal disease) on dialysis Code(s): N18.6 - END STAGE RENAL DISEASE Z99.2 - DEPENDENCE ON RENAL DIALYSIS Assessment/Plan Current Medications Generic Name Dose Route Start Last Admin Trade Name Freq PRN Reason Stop Dose Admin Apixaban 2.5 mg 12/06/16 22:00 12/07/16 09:29 Eliquis - PO 2.5 mg BID [facility] Administration Aspirin 81 mg 12/07/16 10:00 12/07/16 09:32 Asa - PO 81 mg DAILY [facility] Administration Atorvastatin Calcium 20 mg 12/06/16 22:00 12/06/16 22:04 Lipitor - PO 20 mg HS [facility] Administration Carvedilol 12.5 mg 12/06/16 22:00 12/07/16 09:29 Coreg - PO 12.5 mg BID [facility] Administration Gabapentin 100 mg 12/07/16 10:00 12/07/16 09:32 Neurontin - PO 100 mg DAILY [facility] Administration Hydralazine HCl 50 mg 12/06/16 22:00 12/07/16 09:29 Apresoline - PO 50 mg BID [facility] Administration Insulin Aspart 1 vial 12/06/16 11:00 Novolog Vial Sliding Scale - SQ ACHS [facility] Protocol Isosorbide Mononitrate 30 mg 12/06/16 10:15 12/07/16 09:29 Imdur - PO 30 mg DAILY [facility] Administration Morphine Sulfate 1 mg 12/06/16 22:04 12/07/16 05:49 Morphine Injection - IVPUSH 12/07/16 22:03 1 mg Q6H PRN Administration PAIN Pantoprazole Sodium 40 mg 12/06/16 10:15 12/07/16 09:28 Protonix - PO 40 mg BID [facility] Administration Sevelamer Carbonate 800 mg 12/06/16 12:00 12/07/16 11:53 Renvela - PO 800 mg TIDCM [facility] Administration Tamsulosin HCl 0.4 mg 12/07/16 08:30 12/07/16 08:04 Flomax - PO 0.4 mg DAILY@0830 [facility] Administration Tramadol HCl 50 mg 12/06/16 10:14 12/07/16 01:00 Ultram - PO 50 mg Q6H PRN Administration PAIN Impression 1. ESRD 2. CAD 3. HTN 4. narcotic dependence 5. non compliance 6. pleural effusions 7. anemia 8. chest pain 9. DVT 10. hx GI bleed Plan - pt tolerated HD yesterday - next HD on Thursday - cont current meds - monitor BP - will follow while in hospital - pt on aranesp as outpt for anemia Dr Campos
[2016-12-09 00:07] LABS: HEP B SURFACE AB Non Reactive (.)
== END 2016-12-07 16:32 | disposition home or self-care (01) ==
LOC: SUPCPDRO 03:47 → JER 03:47 → JERBED 10:11 → J4W 12:39
PROVIDERS: ADMIT Internal Medicine; ATTEND Nurse Practitioner Acute Care
DX: R07.89 Other chest pain (principal); I25.10 Atherosclerotic heart disease of native coronary artery without angina pectoris; I48.91 Unspecified atrial fibrillation; D64.9 Anemia, unspecified; I25.5 Ischemic cardiomyopathy; F11.20 Opioid dependence, uncomplicated; I48.0 Paroxysmal atrial fibrillation; F41.8 Other specified anxiety disorders; E78.5 Hyperlipidemia, unspecified; I73.89 Other specified peripheral vascular diseases; E87.5 Hyperkalemia; I12.0 Hypertensive chronic kidney disease with stage 5 chronic kidney disease or end stage renal disease; N40.0 Benign prostatic hyperplasia without lower urinary tract symptoms; E11.22 Type 2 diabetes mellitus with diabetic chronic kidney disease; F19.20 Other psychoactive substance dependence, uncomplicated; N18.6 End stage renal disease; Z86.73 Personal history of transient ischemic attack (TIA), and cerebral infarction without residual deficits; Z95.1 Presence of aortocoronary bypass graft; Z86.718 Personal history of other venous thrombosis and embolism; Z95.0 Presence of cardiac pacemaker; Z89.021 Acquired absence of right finger(s); Z91.19 Patient's noncompliance with other medical treatment and regimen; Z95.2 Presence of prosthetic heart valve
CPT/HCPCS: 36415; 71010-TC; 71020-TC; 71250-TC; 80053; 82550; 83735; 84484; 85025; 85610; 86704; 86706; 86708; 87340; 93005; 93010; 99282-25; G0378; J1644

== ENCOUNTER 2016-12-08 23:13 | Emergency (ER) | payer OTHER ==
[2016-12-08 23:32] VITALS: BP 151/79; PULSE 92; TEMP 98.8; BMI 29.2
[2016-12-08] MEDS ORDERED: morphine CARPU-JECT 4 MG/1 ML DISP.SYRIN IVPUSH ONE (23:37)
[2016-12-09 00:34] LABS: EOSINOPHIL 1.4 % (0-4.5); MCH 29.9 pg (25.7-33.7); MCHC 32.3 g/dl (32.0-35.9); MEAN CELL VOLUME 92.5 fl (80-96); MEAN PLT VOLUME 9.8 fl (7.5-11.1); NEUTROPHILS 72.7 % (42.8-82.8); PLATELET COUNT 138 K/MM3 (134-434); RDW 18.4 % (11.9-15.9); WHITE BLOOD COUNT 4.4 K/mm3 (4.0-10.0)
[2016-12-09 00:56] LABS: ALBUMIN 2.8 g/dl (3.4-5.0); BILIRUBIN,TOTAL 0.3 mg/dL (0.2-1.0); CALCIUM 8.2 mg/dL (8.5-10.1); TOT PROT 6.4 g/dl (6.4-8.2)
[2016-12-09 01:21] LABS: TROPONIN I 0.03 ng/ml (0.00-0.05)
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
== END 2016-12-09 04:32 | disposition home or self-care (01) ==
LOC: SUPCPDRO 23:13 → JER 23:13
PROC: 3E033NZ Introduction of Analgesics, Hypnotics, Sedatives into Peripheral Vein, Percutaneous Approach (ICD-10-PCS; principal; 2016-12-08)
DX: M25.552 Pain in left hip (principal); G89.29 Other chronic pain; I25.10 Atherosclerotic heart disease of native coronary artery without angina pectoris; I12.0 Hypertensive chronic kidney disease with stage 5 chronic kidney disease or end stage renal disease; N18.6 End stage renal disease; N17.8 Other acute kidney failure; Z99.2 Dependence on renal dialysis; Z95.1 Presence of aortocoronary bypass graft; Z95.5 Presence of coronary angioplasty implant and graft; E11.9 Type 2 diabetes mellitus without complications; Z79.4 Long term (current) use of insulin; E78.00 Pure hypercholesterolemia, unspecified; N40.0 Benign prostatic hyperplasia without lower urinary tract symptoms; F41.8 Other specified anxiety disorders; Z86.73 Personal history of transient ischemic attack (TIA), and cerebral infarction without residual deficits; Z95.0 Presence of cardiac pacemaker
CPT/HCPCS: 36415; 80053; 82550; 84484; 85025; 96374; 99281-25

== ENCOUNTER 2016-12-26 15:37 | Observation (INO) | payer MEDICARE, OTHER ==
[2016-12-26] MEDS ORDERED: ACETAMINOPHEN 1000 MG/100 ML VIAL (NON FORMULARY) IVPB ONE (16:26)
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
[2016-12-26] MEDS ORDERED: morphine CARPU-JECT 4 MG/1 ML DISP.SYRIN IVPUSH ONE (16:50)
[2016-12-26 16:54] LABS: BASOPHIL 0.8 % (0-2.0); EOSINOPHIL 0.8 % (0-4.5); MCH 29.8 pg (25.7-33.7); MCHC 32.2 g/dl (32.0-35.9); MEAN CELL VOLUME 92.4 fl (80-96); MEAN PLT VOLUME 8.6 fl (7.5-11.1); NEUTROPHILS 78.9 % (42.8-82.8); PLATELET COUNT 206 K/MM3 (134-434); RDW 18.3 % (11.9-15.9); WHITE BLOOD COUNT 7.4 K/mm3 (4.0-10.0)
[2016-12-26 17:26] LABS: ALBUMIN 2.9 g/dl (3.4-5.0); CALCIUM 8.4 mg/dL (8.5-10.1); CREATININE 4.5 mg/dL (0.7-1.3)
[2016-12-26 17:30] LABS: BILIRUBIN,TOTAL 0.4 mg/dL (0.2-1.0); TOT PROT 6.7 g/dl (6.4-8.2); TROPONIN I 0.05 ng/ml (0.00-0.05)
[2016-12-26 17:32] LABS: INR 1.08 (0.82-1.09); PROTHROMBIN TIME (PATIENT) 11.9 SEC (9.98-11.88)
[2016-12-26 17:35] LABS: ACTIVATED PTT 39.7 SECONDS (26.9-34.4)
--- NOTE | 2016-12-26 20:03 | PN ---
<Marysol Bustamante - Last Filed: 12/26/16 20:03> Teaching Attending Note Name of Resident: Brooklyn Noriega <Phil Denise - Last Filed: 12/27/16 00:29> Teaching Attending Note ATTENDING PHYSICIAN STATEMENT I saw and evaluated the patient. I reviewed the resident's note and discussed the case with the resident. I agree with the resident's findings and plan as documented. SUBJECTIVE: Patient is a 66 year old male who is presented to the ED with three weeks of fever, cough and painful left upper extremity mass. The patient reported painful swelling to his left arm that started out as a small bump and has been progressing in size and pain. He reported accompanying subjective fever and left handed tingling. The patient described the cough as non-productive, 3 weeks in duration, and accompanied by congestion. The patient noted he was seen at [facility] two days ago for the same complaints. The patient also noted that he had a mechanical fall yesterday unrelated to any of other complaints. Past Medical History: ESRD, DM, anemia, CVA, CAD s/p pacemaker, s/p CABG, CHF, HTN, HLD, DVT, AFib, and GI bleed. OBJECTIVE: Vital Signs: Last Vital Signs Temp Pulse Resp BP Pulse Ox 98.8 F 87 20 140/80 98 12/26/16 20:51 12/26/16 20:51 12/26/16 20:51 12/26/16 20:51 12/26/16 20:51 GENERAL: Awake, alert, and fully oriented, in no acute distress HEENT: Atraumatic. PERRLA, EOMI. Moist mucosa. No JVD LUNGS: (+) Bilateral basal crackles. Speaks full sentences. HEART: Regular rate and rhythm, normal S1 and S2, no murmurs, rubs or gallops, peripheral pulses normal and equal bilaterally. ABDOMEN: Soft, nontender, normoactive bowel sounds. No guarding, no rebound. No masses EXTREMITIES: (+) Left arm antecubital edema and mass 7cm in diameter. Normal range of motion. NEUROLOGICAL: Cranial nerves II through XII grossly intact. Normal speech, normal gait, no focal sensorimotor deficits SKIN: Warm, Dry, normal turgor (+) Multiple areas of ecchymosis in abdomen, secondary to heparin shots at [facility] (?) Labs: CBCD WBC 7.4 K/mm3 (4.0-10.0) D 12/26/16 16:29 RBC 2.98 M/mm3 (4.00-5.60) L 12/26/16 16:29 Hgb 8.9 GM/dL (11.7-16.9) L 12/26/16 16:29 Hct 27.6 % (35.4-49) L 12/26/16 16:29 MCV 92.4 fl (80-96) 12/26/16 16:29 MCHC 32.2 g/dl (32.0-35.9) 12/26/16 16:29 RDW 18.3 % (11.9-15.9) H 12/26/16 16:29 Plt Count 206 K/MM3 (134-434) D 12/26/16 16:29 MPV 8.6 fl (7.5-11.1) D 12/26/16 16:29 CMP Sodium 138 mmol/L (136-145) 12/26/16 16:29 Potassium 4.7 mmol/L (3.5-5.1) 12/26/16 16:29 Chloride 101 mmol/L (98-107) 12/26/16 16:29 Carbon Dioxide 27 mmol/L (21-32) 12/26/16 16:29 Anion Gap 10 (8-16) 12/26/16 16:29 BUN 43 mg/dL (7-18) H D 12/26/16 16:29 Creatinine 4.5 mg/dL (0.7-1.3) H 12/26/16 16:29 Creat Clearance w eGFR 13.14 (>60) 12/26/16 16:29 Calcium 8.4 mg/dL (8.5-10.1) L 12/26/16 16:29 Total Bilirubin 0.4 mg/dL (0.2-1.0) D 12/26/16 16:29 AST 26 U/L (15-37) 12/26/16 16:29 ALT 19 U/L (12-78) D 12/26/16 16:29 Alkaline Phosphatase 172 U/L (45-117) H 12/26/16 16:29 Total Protein 6.7 g/dl (6.4-8.2) 12/26/16 16:29 Albumin 2.9 g/dl (3.4-5.0) L 12/26/16 16:29 Imagin. Soft tissue extremity ultrasound Clinical information given: left upper extremity fluctuance Impression: At the level of the proximal left forearm note is made of a complex nonspecific approximately 5.4 x 5 x 2.4 cm lesion - ? phlegmon/abscess, soft tissue mass lesion, subacute to chronic hematoma. Reported By: Mehul Peck MD ASSESSMENT AND PLAN : Forearm mass -Pain control- Morphine 2mg PRN Q6H for severe pain -Avoid nephrotoxins -Surgical consult in AM -Renal consult in AM Possible infiltrate- seen in chest x-ray -IV Ceftriaxone 1g daily -IV Azithromycin daily - Repeat CXR tomorrow S/P Mechanical Fall -CT Head ESRD-On HD -Nephrology consult in AM Diabetes - Finger sticks -Sliding scale -Diabetic diet Anemia -Transfuse if H&H <7 Other Chronic Conditions -Continue home medications CAP or HAP-unlikely. No significant clinical presentation Fall risk precautions. Admit to med surg. Documentation prepared by Phil Denise, acting as medical sales consultant for Dr. Marysol Bustamante MD.
--- NOTE | 2016-12-26 21:45 | HP ---
CHIEF COMPLAINT: Left forearm swelling/cough/fever PCP: HISTORY OF PRESENT ILLNESS: Patient is a 66 year old male presented to the ED with the chief complaints of left forearm swelling/cough/fever. As per the patient, he started developing swelling over the left proximal forearm since 3 weeks, progressively getting worse, painful, continuous and later the size of swelling increased. Patient also developed fever yesterday (not recorded) associated with chills, rigors but no sweating. Reports to have developed cough x 3 days, dry, non productive. For the above mentioned symptoms, patient went to the ED at [facility] 2 days ago, was given a shot and sent home. Patient said the shot initially helped but later the pain started increasing and was unbearable. Patient then went to [facility] yesterday and was given an appointment for surgery of the left forearm after 4 weeks. Since it was very painful and couldn' t wait that long, he came here in the ED. Had dialysis yesterday at [facility]. Patient also mentions he had a mechanical fall yesterday, slipped and hit the right side of the eyelid. No LOC, dizziness, tingling, numbness, headache post fall. Denies chest pain, sob, palpitation, abdominal pain, nausea or vomiting. Bowel habit normal. Appetite decreased since illness. Sleep normal. As per [facility] report patient's BNP 2 days ago was around 35,000 which increased to around 40,000 today. ER course was notable for: (1) Afebrile, no leukocytosis; creatinine 4.5 (dialysis done yesterday); clearance 13.14; BNP-40,651.66 (2) Extremity ultrasound-5.4 x 5 x 2.4 cm lesion -?phegmon/abscess, soft tissue mass lesion, subacute to chronic hematoma. 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 Social History: Smoking: Quit in 2013 Alcohol: None Drugs: None Family History Father - CVA Brother - DM, CAD Allergies No Known Drug Allergies Allergy (Verified 12/08/16 23:32) HOME MEDICATIONS: Home Medications Medication Instructions Recorded Apixaban [Eliquis -] 2.5 mg PO BID #60 tablet 12/07/16 Aspirin [ASA -] 81 mg PO DAILY #0 tab.chew 12/07/16 Atorvastatin Ca [Lipitor] 20 mg PO HS #0 tablet 12/07/16 Carvedilol [Coreg -] 12.5 mg PO BID #60 tablet 12/07/16 Gabapentin [Neurontin -] 100 mg PO DAILY #0 capsule 12/07/16 Hydralazine HCl [Apresoline -] 50 mg PO BID #0 tablet 12/07/16 Insulin Sliding Scale [Novolog 1 vial SQ ACHS #0 units 12/07/16 Vial Sliding Scale -] Isosorbide Mononitrate [Imdur -] 30 mg PO DAILY #0 tab.sr.24h 12/07/16 Pantoprazole Sodium [Protonix -] 40 mg PO BID #0 tablet.ec 12/07/16 Sevelamer Carbonate [Renvela -] 800 mg PO TIDCM #0 tab 12/07/16 Tamsulosin HCl [Flomax -] 0.4 mg PO DAILY@0830 #0 cap.er.24h 12/07/16 Tramadol HCl [Ultram -] 50 mg PO Q6H PRN #20 tablet MDD 4 12/07/16 REVIEW OF SYSTEMS CONSTITUTIONAL: Present: fever, chills Absent: diaphoresis, generalized weakness, malaise, loss of appetite, weight change HEENT: Absent: rhinorrhea, nasal congestion, throat pain, throat swelling, difficulty swallowing, mouth swelling, ear pain, eye pain, visual changes CARDIOVASCULAR: Absent: chest pain, syncope, palpitations, irregular heart rate, lightheadedness , peripheral edema RESPIRATORY: Present: Dry cough Absent: shortness of breath, dyspnea with exertion, orthopnea, wheezing, stridor , hemoptysis GASTROINTESTINAL: Absent: abdominal pain, abdominal distension, nausea, vomiting, diarrhea, constipation, melena, hematochezia GENITOURINARY: Absent: dysuria, frequency, urgency, hesitancy, hematuria, flank pain, genital pain MUSCULOSKELETAL: Present: Left proximal forearm-swelling and pain Absent: myalgia, arthralgia, joint swelling, back pain, neck pain SKIN: Absent: rash, itching, pallor HEMATOLOGIC/IMMUNOLOGIC: Absent: easy bleeding, easy bruising, lymphadenopathy, frequent infections ENDOCRINE: Absent: unexplained weight gain, unexplained weight loss, heat intolerance, cold intolerance NEUROLOGIC: Absent: headache, focal weakness or paresthesias, dizziness, unsteady gait, seizure, mental status changes, bladder or bowel incontinence PSYCHIATRIC: Absent: anxiety, depression, suicidal or homicidal ideation, hallucinations. PHYSICAL EXAMINATION Vital Signs - 24 hr 12/26/16 20:51 Temperature 98.8 F Pulse Rate [ 87 Left Radial] Respiratory 20 Rate Blood Pressure 140/80 [Left Arm] O2 Sat by Pulse 98 Oximetry (%) GENERAL: Patient lying comfortably in bed, Awake, alert, and fully oriented, in no acute distress. HEAD: Normal with no signs of trauma. EYES: Puffy eyes +; small laceration around 1cm x 0.25cm curved on the right eyelid; EOM intact, no pallor or icterus. EARS, NOSE, THROAT: Ears normal. Moist mucous membranes. NECK: Supple. LUNGS: Breath sounds equal,B/l basilar crackles; wheeze occasional HEART: Regular rate and rhythm, normal S1 and S2 without murmur, rub or gallop. ABDOMEN: Soft, nontender, not distended, normoactive bowel sounds, no guarding, no rebound, no masses. No hepatomegaly or splenomegaly. MUSCULOSKELETAL: Normal range of motion at all joints. No bony deformities or tenderness. No CVA tenderness. UPPER EXTREMITIES: Left proximal forearm: No erythema, swelling + approximately 9 x 10cm with induration area of 12 x 11cm; no pus point, temperature normal, tender to palpation. Right arm: On the area of AVF-swelling; no thrill. LOWER EXTREMITIES: 2+ pulses, warm, well-perfused. No calf tenderness. No peripheral edema. NEUROLOGICAL: Cranial nerves II-XII intact. Normal speech. Gait not observed. PSYCHIATRIC: Cooperative. Good eye contact. Appropriate mood and affect. SKIN: Warm, dry, normal turgor, no rashes or lesions noted, normal capillary refill. 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 # Left proximal forearm swelling -R/O abscess vs chronic hematoma vs soft tissue mass Patient presented with left proximal area painful swelling for 3 weeks; fever x 1 day and dry cough Afebrile, no leukocytosis; creatinine 4.5 (dialysis done yesterday); clearance 13.14; BNP-40,651.66 In the ED, he received IV morphine 4mg and Tylenol Extremity ultrasound-5.4 x 5 x 2.4 cm lesion -?phegmon/abscess, soft tissue mass lesion, subacute to chronic hematoma. Admitted in Med-surg Pain control Surgical consult placed Most likely needs Incision and Drainage # Fluid overload-likely renal cause (ESRD HD //) B/L basilar crackles Fluid restriction Strict input/output Dialysis done yesterday Renal consult placed Avoid nephrotoxic drugs # Possible infiltrate in Chest x-ray IV Ceftriaxone 1gm daily and IV Azithromycin daily F/up repeat cxr tomorrow # S/P mechanical fall yesterday Ordered Stat CT head to r/o fracture/ Intracranial bleed No complaints of headache or any other symptom at this time. # CAD s/p cardiac stent Continue Elliquis 2.5mg PO BID # CVA Continue Elliquis, aspirin, statin 20mg # Hypertension Continue Hydralazine 50mg PO BID; Carvedilol 12.5 mg BID # Diabetes Mellitus Finger stick glucose monitoring Insulin sliding scale Diabetic diet # BPH Continue Tamsulocin 0.4mg # Anemia-H/H 8.9/27.6 Transfuse if < 7gm/dl # FEN On fluid restriction Electrolytes to be repeated tomorrow Diabetic/Sodium controlled diet # Prophylaxis For DVT: already on Elliquis For GI: ON pantoprazole # Code status: Full Code # Dispo: Admitted in Med-Surg. Duration of stay unknown. Illness, Investigation and Plan of care explained to the patient. He verbalized understanding. Case discussed with Dr. Bustamante. Visit type - Emergency Visit Emergency Visit: Yes ED Registration Date: 12/26/16 Care time: The patient presented to the Emergency Department on the above date and was hospitalized for further evaluation of their emergent condition. - New Patient This patient is new to me today: Yes Date on this admission: 12/26/16 - Critical Care Critical Care patient: No
[2016-12-27] MEDS ORDERED: CEFTRIAXONE 50 ML IVPB SCH (00:45)
[2016-12-27] MEDS ORDERED: AZITHROMYCIN IVPB 250 ML IVPB SCH (00:45)
[2016-12-27] MEDS ORDERED: morphine CARPU-JECT 4 MG/1 ML DISP.SYRIN IVPUSH ONE (03:35)
[2016-12-27] MEDS: INSULIN SLIDING SCALE (NOVOLOG) 1 VIAL SQ SCH ×4 (06:57→21:34)
[2016-12-27] MEDS: TAMSULOSIN HCL 0.4 MG CAP.ER.24H (FP) PO SCH (08:30)
[2016-12-27] MEDS: SEVELAMER CARBONATE 800 MG TAB (FP) PO SCH ×4 (08:31→18:20)
[2016-12-27 08:55] LABS: BASOPHIL 0.9 % (0-2.0); EOSINOPHIL 1.9 % (0-4.5); MCH 29.3 pg (25.7-33.7); MCHC 31.5 g/dl (32.0-35.9); MEAN CELL VOLUME 93.1 fl (80-96); MEAN PLT VOLUME 8.2 fl (7.5-11.1); NEUTROPHILS 74.6 % (42.8-82.8); PLATELET COUNT 190 K/MM3 (134-434); RDW 18.2 % (11.9-15.9); WHITE BLOOD COUNT 6.1 K/mm3 (4.0-10.0)
[2016-12-27 09:02] LABS: INR 1.09 (0.82-1.09)
[2016-12-27 09:06] LABS: ACTIVATED PTT 42.3 SECONDS (26.9-34.4)
[2016-12-27] MEDS ORDERED: PT OWN MED DRAWER 7, Y5N ONE ×2 (09:13→21:02)
[2016-12-27] MEDS: traMADol HCL 50 MG TABLET PO PRN ×2 (09:26→20:14)
[2016-12-27] MEDS: GABAPENTIN 100 MG CAPSULE (FP) PO SCH (09:27)
[2016-12-27] MEDS: PANTOPRAZOLE 40 MG TABLET (FP) PO SCH ×2 (09:27→21:35)
[2016-12-27] MEDS: ASPIRIN 81 MG CHEWABLE TABLETS PO SCH (09:28)
[2016-12-27] MEDS: APIXABAN 2.5 MG TABLET PO SCH ×2 (09:28→21:35)
[2016-12-27] MEDS: CEFTRIAXONE 50 ML IVPB SCH (09:29)
[2016-12-27] MEDS ORDERED: hydrALAZINE HCL 50 MG TABLET (FP) PO SCH (10:00)
[2016-12-27] MEDS ORDERED: ISOSORBIDE MONONITRATE 30 MG TAB.SR.24H (FP) PO SCH ×2 (10:00→14:50)
[2016-12-27] MEDS ORDERED: CARVEDILOL 12.5 MG TABLET (FP) PO SCH (10:00)
[2016-12-27 10:04] LABS: ALBUMIN 2.9 g/dl (3.4-5.0); BILIRUBIN,TOTAL 0.4 mg/dL (0.2-1.0); CALCIUM 8.7 mg/dL (8.5-10.1); CREATININE 5.1 mg/dL (0.7-1.3); MAGNESIUM 2.2 mg/dL (1.8-2.4); PHOSPHOROUS 4.9 mg/dL (2.5-4.9); TOT PROT 6.9 g/dl (6.4-8.2)
[2016-12-27] MEDS: AZITHROMYCIN IVPB 250 ML IVPB SCH (10:38)
[2016-12-27] MEDS ORDERED: INSULIN (NOVOLOG) ASPART 100 UNITS/ML 10ML VIAL ONE (12:13)
--- NOTE | 2016-12-27 12:43 | PN ---
Physical Exam: SUBJECTIVE: Patient seen and examined Patient is having dialysis, c/o having LEFT upper extremity pain due to swelling. OBJECTIVE: Vital Signs Temperature 97.6 F 12/27/16 12:00 Pulse Rate 76 12/27/16 08:55 Respiratory Rate 24 12/27/16 08:55 Blood Pressure 122/57 12/27/16 08:55 O2 Sat by Pulse Oximetry (%) 98 12/26/16 23:00 GENERAL: The patient is awake, alert, and fully oriented, in no acute distress. HEAD: Normal with no signs of trauma. EYES: PERRL, extraocular movements intact, sclera anicteric, conjunctiva clear. No ptosis. ENT: Ears normal, nares patent, oropharynx clear without exudates, moist mucous membranes. NECK: Trachea midline, full range of motion, supple. LUNGS: Breath sounds equal, clear to auscultation bilaterally, no wheezes, no crackles, no accessory muscle use. HEART: Regular rate and rhythm, S1, S2 without murmur, rub or gallop. ABDOMEN: Soft, nontender, nondistended, normoactive bowel sounds, no guarding, no rebound, no hepatosplenomegaly, no masses. EXTREMITIES: 2+ pulses, warm, well-perfused, Left proximal forearm swelling size of a ball, very painful NEUROLOGICAL: Cranial nerves II through XII grossly intact. Normal speech, gait not observed. PSYCH: Normal mood, normal affect. SKIN: Warm, dry, normal turgor, no rashes or lesions noted CBCD WBC 6.1 K/mm3 (4.0-10.0) 12/27/16 08:25 RBC 3.26 M/mm3 (4.00-5.60) L 12/27/16 08:25 Hgb 9.6 GM/dL (11.7-16.9) L 12/27/16 08:25 Hct 30.4 % (35.4-49) L 12/27/16 08:25 MCV 93.1 fl (80-96) 12/27/16 08:25 MCHC 31.5 g/dl (32.0-35.9) L 12/27/16 08:25 RDW 18.2 % (11.9-15.9) H 12/27/16 08:25 Plt Count 190 K/MM3 (134-434) 12/27/16 08:25 MPV 8.2 fl (7.5-11.1) 12/27/16 08:25 CMP Sodium 136 mmol/L (136-145) 12/27/16 08:25 Potassium 4.9 mmol/L (3.5-5.1) 12/27/16 08:25 Chloride 101 mmol/L (98-107) 12/27/16 08:25 Carbon Dioxide 26 mmol/L (21-32) 12/27/16 08:25 Anion Gap 9 (8-16) 12/27/16 08:25 BUN 48 mg/dL (7-18) H 12/27/16 08:25 Creatinine 5.1 mg/dL (0.7-1.3) H 12/27/16 08:25 Creat Clearance w eGFR 11.37 (>60) 12/27/16 08:25 Random Glucose 118 mg/dL (74-106) H 12/27/16 08:25 Calcium 8.7 mg/dL (8.5-10.1) 12/27/16 08:25 Total Bilirubin 0.4 mg/dL (0.2-1.0) 12/27/16 08:25 AST 23 U/L (15-37) 12/27/16 08:25 ALT 19 U/L (12-78) 12/27/16 08:25 Alkaline Phosphatase 149 U/L (45-117) H 12/27/16 08:25 Total Protein 6.9 g/dl (6.4-8.2) 12/27/16 08:25 Albumin 2.9 g/dl (3.4-5.0) L 12/27/16 08:25 CARDIAC ENZYMES Creatine Kinase 63 IU/L (39-308) 12/26/16 16:29 Troponin I 0.05 ng/ml (0.00-0.05) D 12/26/16 16:29 Current Medications Generic Name Dose Route Start Last Admin Trade Name Freq PRN Reason Stop Dose Admin Apixaban 2.5 mg 12/27/16 10:00 12/27/16 09:28 Eliquis - PO 2.5 mg BID NGOC Administration Aspirin 81 mg 12/27/16 10:00 12/27/16 09:28 Asa - PO 81 mg DAILY NGOC Administration Atorvastatin Calcium 20 mg 12/27/16 22:00 Lipitor - PO HS NGOC Carvedilol 12.5 mg 12/27/16 10:00 12/27/16 09:27 Coreg - PO 12.5 mg BID NGOC Administration Gabapentin 100 mg 12/27/16 10:00 12/27/16 09:27 Neurontin - PO 100 mg DAILY NGOC Administration Hydralazine HCl 50 mg 12/27/16 10:00 12/27/16 09:27 Apresoline - PO 50 mg BID NGOC Administration Azithromycin 250 mls @ 250 mls/hr 12/27/16 10:00 12/27/16 10:38 Zithromax 500mg Ivpb (Pre-Docked) IVPB 250 mls/hr DAILY NGOC Administration Ceftriaxone Sodium 50 mls @ 100 mls/hr 12/27/16 10:00 12/27/16 09:29 Rocephin 1gm Ivpb (Pre-Docked) IVPB 100 mls/hr DAILY NGOC Administration Insulin Aspart 1 vial 12/27/16 07:00 12/27/16 12:15 Novolog Vial Sliding Scale - SQ 2 units ACHS NGOC Administration Protocol Isosorbide Mononitrate 30 mg 12/27/16 10:00 12/27/16 09:28 Imdur - PO 30 mg DAILY NGOC Administration Pantoprazole Sodium 40 mg 12/27/16 10:00 12/27/16 09:27 Protonix - PO 40 mg BID NGOC Administration Sevelamer Carbonate 800 mg 12/27/16 08:00 12/27/16 12:16 Renvela - PO 800 mg TIDCM NGOC Administration Tamsulosin HCl 0.4 mg 12/27/16 08:30 12/27/16 08:30 Flomax - PO 0.4 mg DAILY@0830 NGOC Administration Tramadol HCl 50 mg 12/26/16 22:03 12/27/16 09:26 Ultram - PO 50 mg Q6H PRN Administration PAIN US of upper left extremity: Proximal left Forearm 5.4x5x2.4 abcess vs soft tissue mass vs subacute to chronic hematoma A/P: Patient is a 66 year old male with significant past medical hx of ESRD on HD / / has a permacath CAD s/p CABG, cardiac stent; AICD; Hypertension; Hyperlipidemia; Type 2 diabetes mellitus; Chronic systolic heart failure; Paroxysmal atrial fibrillation; Peripheral artery disease; Right arm DVT; CVA; Anemia; Left femur fracture repair; 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 # Acute / Subacute vs chronic Left proximal forearm swelling/ with pain ;Us of left upper extremity as above . ID consult requested and Surgical consult for possible I&D or possible further w /u. on Ultram Do not give morphine if Blood pressure is below 120 SBP. # ESRD on HD ( //) getting dialyzed now; Nephro is on the case # Possible infiltrate on the Chest x-ray continue IV Ceftriaxone 1gm daily and IV Azithromycin daily # S/P mechanical fall yesterday :Ct of the head negative ; No complaints of headache or any other symptom at this time. # CAD s/p cardiac stent continue Elliquis 2.5mg PO BID # CVA continue Elliquis, aspirin, statin 20mg # Hypertension continue Hydralazine 50mg Po BID; Carvedilol 12.5 mg BID # T2DM SS with coverage ;Diabetic diet # BPH continue Tamsulocin 0.4mg # Anemia-H/H ;Transfuse if < 7gm/dl # Prophylaxis DVT: already on Elliquis; For GI: On pantoprazole # Code status: Full Code Visit type - Emergency Visit Emergency Visit: Yes ED Registration Date: 12/26/16 Care time: The patient presented to the Emergency Department on the above date and was hospitalized for further evaluation of their emergent condition. - New Patient This patient is new to me today: Yes Date on this admission: 12/27/16 - Critical Care Critical Care patient: No - Discharge Referral Referred to [facility] Med [facility] Yes Physician Referral: Gregory Lange MD ([facility])
[2016-12-27] MEDS: ALBUMIN HUMAN 25% 100 ML VIAL IVPB SCH ×4 (12:45→14:40)
[2016-12-27] MEDS ORDERED: VANCOMYCIN 1 GRAM (PRE-DOCKED) 250 ML IVPB ONE (12:54)
[2016-12-27 14:28] VITALS: BMI 19.5
--- NOTE | 2016-12-27 14:28 | CON.NEP ---
Consult Consult Specialty:: Nephrology Referred by:: Dr Schwartz Reason for Consultation:: ESRD - History of Present Illness Chief Complaint: Left arm pain History of Present Illness: Patient is a 66 year old male presented to the ED with the chief complaints of left forearm swelling/cough/fever. As per the patient, he started developing swelling over the left proximal forearm since 3 weeks, progressively getting worse, painful, continuous and later the size of swelling increased. Patient also developed fever yesterday (not recorded) associated with chills, rigors but no sweatinen an appointment for surgery of the left forearm after 4 weeks. Since it was very painful and couldn't wait that long, he came here in the ED. Had dialysis yesterday at the [facility] HD unit and is due for HD today so asked to evaluate. - Past Medical History FOLLOW UP SPECIALIST: Yes: CVA Cardio/Vascular: Yes: AFIB (paroxysmal), CAD (CABG, PCI/KAT), CHF, Deep Vein Thrombosis, HTN, Hyperlipdemia Renal/: Yes: Renal Failure, Hemodialysis Psych: Yes: Anxiety Endocrine: Yes: Diabetes Mellitus - Past Surgical History Past Surgical History: Yes: AICD, Amputation (right 3rd finger), CABG (3v CABG and mitral ring 2009 (GUADALUPE->LAD, SVG->LPL, SVG->D1 jump D2.), Stent - Alcohol/Substance Use Hx Alcohol Use: No History of Substance Use: reports: Prescription - Smoking History Smoking history: Never smoked Have you smoked in the past 12 months: No Aproximately how many cigarettes per day: 0 If you are a former smoker, when did you quit?: 2013 - Social History Usual Living Arrangement: With Spouse ADL: Independent History of Recent Travel: No Home Medications - Allergies Allergies/Adverse Reactions: Allergies Allergy/AdvReac Type Severity Reaction Status Date / Time No Known Drug Allergies Allergy Verified 12/08/16 23:32 - Home Medications Home Medications: Ambulatory Orders Apixaban [Eliquis -] 2.5 mg PO BID #60 tablet 12/07/16 Aspirin [ASA -] 81 mg PO DAILY #0 tab.chew 12/07/16 Atorvastatin Ca [Lipitor] 20 mg PO HS #0 tablet 12/07/16 Carvedilol [Coreg -] 12.5 mg PO BID #60 tablet 12/07/16 Gabapentin [Neurontin -] 100 mg PO DAILY #0 capsule 12/07/16 Hydralazine HCl [Apresoline -] 50 mg PO BID #0 tablet 12/07/16 Insulin Sliding Scale [Novolog Vial Sliding Scale -] 1 vial SQ ACHS #0 units Isosorbide Mononitrate [Imdur -] 30 mg PO DAILY #0 tab.sr.24h 12/07/16 Pantoprazole Sodium [Protonix -] 40 mg PO BID #0 tablet.ec 12/07/16 Sevelamer Carbonate [Renvela -] 800 mg PO TIDCM #0 tab 12/07/16 Tamsulosin HCl [Flomax -] 0.4 mg PO DAILY@0830 #0 cap.er.24h 12/07/16 Tramadol HCl [Ultram -] 50 mg PO Q6H PRN #20 tablet MDD 4 12/07/16 Family Disease History - Family Disease History Family Disease History: Diabetes: Brother, Heart Disease: Brother, Other: Father (Stroke) Nephrology Consult - Height Height: 5 ft 4 in - Weight Weight: 114 lb 4 oz - BMI Body Mass Index (BMI): 19.5 - Lab Results CBC,BMP: CBC, BMP 12/27/16 08:25 12/27/16 08:25 Anion Gap: Anion Gap Anion Gap 9 (8-16) 12/27/16 08:25 - Imaging Chest X-ray: Other (Some congestion) Ultrasound: Other (Sonogram of the LUE suggest a phlegmon) EKG: Other (A Fib with RBBB and Old IWMI) - Physical Examination Vital Signs: Vital Signs Temperature 98.4 F 12/27/16 12:35 Pulse Rate 60 12/27/16 14:10 Respiratory Rate 18 12/27/16 14:10 Blood Pressure 91/45 12/27/16 14:10 O2 Sat by Pulse Oximetry (%) 98 12/26/16 23:00 Constitutional: Yes: No Distress Neck: Yes: Other (Facial and neck swelling) Cardiovascular: Yes: S1, S2, Other (Slightly irregular) Respiratory: Yes: CTA Bilaterally Gastrointestinal: Yes: Soft. No: Tenderness, Rebound Extremities: Yes: Other (S/P amputation of the 3rd right finger. Left forearm with fluctuent and painful swelling) Edema: (No LE edema ) Assessment/Plan Impression Swelling of the LUE R/O Abscess ESRD with hyperkalemia CAD HTN but now with relatively low BP after having been given antihypertensive agents earlier R/O sepsis Narcotic dependence in the past Anemia PAF Plan BC X2 Abx including Vancomycin and adjust meds for ESRD HD being done now for clearance May not be able to remove fluid given the relatively low BP- Will given IV albumin on HD Hold antihypertensive agents if systolic less than 120 Renal Diet Epogen with HD Discussed with the Hospitalist Dr Ramsey
--- NOTE | 2016-12-27 14:28 | PN ---
Progress Note (short form) - Note Progress Note: ID Consult dictated L forearm swelling, possible abscess ESRD BC obtained, stat dose vancomycin given Surgical evaluation
[2016-12-27] MEDS ORDERED: EPOETIN ALFA 2,000 UNITS/1 ML VIAL IVPUSH ONE (16:00)
[2016-12-27] MEDS: hydrALAZINE HCL 50 MG TABLET (FP) PO SCH (21:33)
[2016-12-27] MEDS: CARVEDILOL 12.5 MG TABLET (FP) PO SCH (21:33)
[2016-12-27] MEDS ORDERED: ATORVASTATIN CA 20 MG TABLET (FP) PO SCH (22:00)
[2016-12-27] MEDS ORDERED: morphine CARPU-JECT 2 MG/1 ML DISP.SYRIN IVPUSH ONE (22:30)
[2016-12-28] MEDS: traMADol HCL 50 MG TABLET PO PRN (04:32)
[2016-12-28] MEDS: INSULIN SLIDING SCALE (NOVOLOG) 1 VIAL SQ SCH ×3 (06:01→17:54)
[2016-12-28] MEDS ORDERED: morphine CARPU-JECT 2 MG/1 ML DISP.SYRIN IVPUSH ONE ×2 (06:13→13:02)
[2016-12-28] MEDS ORDERED: morphine CARPU-JECT 2 MG/1 ML DISP.SYRIN ONE (06:27)
[2016-12-28] MEDS ORDERED: PT OWN MED DRAWER 7, Y5N ONE ×2 (06:51→10:21)
[2016-12-28] MEDS ORDERED: INSULIN (NOVOLOG) ASPART 100 UNITS/ML 10ML VIAL ONE ×2 (06:52→12:01)
[2016-12-28] MEDS: SEVELAMER CARBONATE 800 MG TAB (FP) PO SCH ×3 (08:33→17:54)
[2016-12-28] MEDS: TAMSULOSIN HCL 0.4 MG CAP.ER.24H (FP) PO SCH (08:34)
[2016-12-28] MEDS ORDERED: ACETAMINOPHEN 1000 MG/100 ML VIAL (NON FORMULARY) IVPB PRN (10:09)
[2016-12-28] MEDS: APIXABAN 2.5 MG TABLET PO SCH (10:24)
[2016-12-28] MEDS: PANTOPRAZOLE 40 MG TABLET (FP) PO SCH (10:24)
[2016-12-28] MEDS: CARVEDILOL 12.5 MG TABLET (FP) PO SCH (10:24)
[2016-12-28] MEDS: GABAPENTIN 100 MG CAPSULE (FP) PO SCH (10:25)
[2016-12-28] MEDS: hydrALAZINE HCL 50 MG TABLET (FP) PO SCH (10:25)
[2016-12-28] MEDS: ASPIRIN 81 MG CHEWABLE TABLETS PO SCH (10:26)
--- NOTE | 2016-12-28 11:20 | EKG ---
Test Reason : Blood Pressure : / mmHG Vent. Rate : 069 BPM Atrial Rate : 312 BPM P-R Int : 000 ms QRS Dur : 156 ms QT Int : 460 ms P-R-T Axes : 000 005 -03 degrees QTc Int : 492 ms Ventricular-paced rhythm Biventricular pacemaker detected ABNORMAL ECG WHEN COMPARED WITH ECG OF 06-DEC-2016 14:18, PREMATURE VENTRICULAR COMPLEXES ARE NO LONGER PRESENT VENT. RATE HAS INCREASED BY 6 BPM Confirmed by PETRA ALAS MD ([id number]) on 12/28/2016 11:20:14 AM Referred By: Confirmed By:PETRA ALAS MD
--- NOTE | 2016-12-28 11:54 | PN ---
Progress Note, Physician History of Present Illness: Pt is OOB in a chair and without dyspnea Left forearm remains swollen and tender BC negative to date - Current Medication List Current Medications: Active Medications Acetaminophen (Ofirmev Injection -) 1,000 mg IVPB Q8H PRN PRN Reason: FEVER OR PAIN Stop: 12/29/16 10:10 Last Admin: 12/28/16 10:23 Dose: 1,000 mg Apixaban (Eliquis -) 2.5 mg PO BID [facility] Last Admin: 12/28/16 10:24 Dose: 2.5 mg Aspirin (Asa -) 81 mg PO DAILY [facility] Last Admin: 12/28/16 10:26 Dose: 81 mg Atorvastatin Calcium (Lipitor -) 20 mg PO HS [facility] Last Admin: 12/27/16 21:35 Dose: 20 mg Carvedilol (Coreg -) 12.5 mg PO BID [facility] Last Admin: 12/28/16 10:24 Dose: 12.5 mg Gabapentin (Neurontin -) 100 mg PO DAILY [facility] Last Admin: 12/28/16 10:25 Dose: 100 mg Hydralazine HCl (Apresoline -) 50 mg PO BID [facility] Last Admin: 12/28/16 10:25 Dose: 50 mg Azithromycin (Zithromax 500mg Ivpb (Pre-Docked)) 250 mls @ 250 mls/hr IVPB DAILY [facility] Last Admin: 12/27/16 10:38 Dose: 250 mls/hr Ceftriaxone Sodium (Rocephin 1gm Ivpb (Pre-Docked)) 50 mls @ 100 mls/hr IVPB DAILY [facility] Last Admin: 12/27/16 09:29 Dose: 100 mls/hr Insulin Aspart (Novolog Vial Sliding Scale -) 1 vial SQ ACHS [facility] PRN Reason: Protocol Last Admin: 12/28/16 06:01 Dose: Not Given Isosorbide Mononitrate (Imdur -) 30 mg PO DAILY [facility] Last Admin: 12/28/16 10:24 Dose: 30 mg Pantoprazole Sodium (Protonix -) 40 mg PO BID [facility] Last Admin: 12/28/16 10:24 Dose: 40 mg Sevelamer Carbonate (Renvela -) 800 mg PO TIDCM [facility] Last Admin: 12/28/16 08:33 Dose: 800 mg Tamsulosin HCl (Flomax -) 0.4 mg PO DAILY@0830 [facility] Last Admin: 12/28/16 08:34 Dose: 0.4 mg Tramadol HCl (Ultram -) 50 mg PO Q6H PRN PRN Reason: PAIN Last Admin: 12/28/16 04:32 Dose: 50 mg - Objective Vital Signs: Vital Signs Temperature 97.7 F 12/28/16 11:07 Pulse Rate 78 12/28/16 10:27 Respiratory Rate 20 12/28/16 10:27 Blood Pressure 122/50 12/28/16 10:27 O2 Sat by Pulse Oximetry (%) 96 12/27/16 21:00 Constitutional: Yes: No Distress HENT: Yes: Other (Facial swelling and Left IJ PermCath) Cardiovascular: Yes: S1, S2 Respiratory: Yes: CTA Bilaterally Gastrointestinal: Yes: Soft. No: Tenderness, Rebound Extremities: Yes: Other (Lo LE edema and swollen tender left forearm) Labs: CBC, BMP 12/27/16 08:25 12/27/16 08:25 INR, PTT INR 1.09 (0.82-1.09) 12/27/16 08:25 Assessment/Plan Impression Swelling of the LUE R/O Abscess ESRD CAD HTN Narcotic seeking in the past Anemia PAF Plan Abx as per ID Next HD tomorrow with Epogen and 1 gram of Vancomycin Hold antihypertensive agents if systolic less than 120 For surgery consult and possible I and D Dr Ramsey
[2016-12-28] MEDS: CEFTRIAXONE 50 ML IVPB SCH (12:03)
--- NOTE | 2016-12-28 12:54 | PN ---
Progress Note, Physician History of Present Illness: C/O L forearm pain No c/o fever/ chills WBC normal BC prelim no growth - Current Medication List Current Medications: Active Medications Acetaminophen (Ofirmev Injection -) 1,000 mg IVPB Q8H PRN PRN Reason: FEVER OR PAIN Stop: 12/29/16 10:10 Last Admin: 12/28/16 10:23 Dose: 1,000 mg Apixaban (Eliquis -) 2.5 mg PO BID [facility] Last Admin: 12/28/16 10:24 Dose: 2.5 mg Aspirin (Asa -) 81 mg PO DAILY [facility] Last Admin: 12/28/16 10:26 Dose: 81 mg Atorvastatin Calcium (Lipitor -) 20 mg PO HS [facility] Last Admin: 12/27/16 21:35 Dose: 20 mg Carvedilol (Coreg -) 12.5 mg PO BID [facility] Last Admin: 12/28/16 10:24 Dose: 12.5 mg Gabapentin (Neurontin -) 100 mg PO DAILY [facility] Last Admin: 12/28/16 10:25 Dose: 100 mg Hydralazine HCl (Apresoline -) 50 mg PO BID [facility] Last Admin: 12/28/16 10:25 Dose: 50 mg Azithromycin (Zithromax 500mg Ivpb (Pre-Docked)) 250 mls @ 250 mls/hr IVPB DAILY [facility] Last Admin: 12/27/16 10:38 Dose: 250 mls/hr Ceftriaxone Sodium (Rocephin 1gm Ivpb (Pre-Docked)) 50 mls @ 100 mls/hr IVPB DAILY [facility] Last Admin: 12/28/16 12:03 Dose: 100 mls/hr Insulin Aspart (Novolog Vial Sliding Scale -) 1 vial SQ ACHS [facility] PRN Reason: Protocol Last Admin: 12/28/16 12:02 Dose: Not Given Isosorbide Mononitrate (Imdur -) 30 mg PO DAILY [facility] Last Admin: 12/28/16 10:24 Dose: 30 mg Pantoprazole Sodium (Protonix -) 40 mg PO BID [facility] Last Admin: 12/28/16 10:24 Dose: 40 mg Sevelamer Carbonate (Renvela -) 800 mg PO TIDCM [facility] Last Admin: 12/28/16 12:02 Dose: 800 mg Tamsulosin HCl (Flomax -) 0.4 mg PO DAILY@0830 [facility] Last Admin: 12/28/16 08:34 Dose: 0.4 mg Tramadol HCl (Ultram -) 50 mg PO Q6H PRN PRN Reason: PAIN Last Admin: 12/28/16 04:32 Dose: 50 mg Vancomycin HCl (Vancomycin (Pre-Docked)) 1,000 mg IVPB ONCE ONE Stop: 12/29/16 09:01 - Objective Vital Signs: Vital Signs Temperature 97.7 F 12/28/16 11:07 Pulse Rate 78 12/28/16 10:27 Respiratory Rate 20 12/28/16 10:27 Blood Pressure 122/50 12/28/16 10:27 O2 Sat by Pulse Oximetry (%) 96 12/27/16 21:00 Constitutional: Yes: No Distress Eyes: Yes: Conjunctiva Clear Cardiovascular: Yes: Regular Rate and Rhythm, S1, S2 Respiratory: Yes: CTA Bilaterally Gastrointestinal: Yes: Normal Bowel Sounds, Soft. No: Tenderness Extremities: Yes: Other (large fluctuant mass L forearm +tender no erythema/ warmth) Labs: CBC, BMP 12/27/16 08:25 12/27/16 08:25 INR, PTT INR 1.09 (0.82-1.09) 12/27/16 08:25 Assessment/Plan Fluctuant L forearm mass, possible abscess Possible pneumonia ESRD Await BC Vanco/ genta given Continue zithromax/ ceftriaxone Surgical evaluation
--- NOTE | 2016-12-28 12:58 | PN ---
Physical Exam: SUBJECTIVE: Patient seen and examined at bedside complains of left arm and bilateral leg pain OBJECTIVE: Vital Signs Period Temp Pulse Resp BP Sys/Hinds Pulse Ox Last 24 Hr 97.5 F-98.3 F 60-82 18-20 83-122/30-50 96 GENERAL: The patient is awake, alert, NAD ENT: moist mucous membranes. NECK: Trachea midline LUNGS: bilateral crackles HEART: Regular rate and rhythm, S1, S2 ABDOMEN: Soft, nontender, nondistended, normoactive bowel sounds EXTREMITIES: LEft upper extremity of warm when compared to right. There is a large fluctuant mass on the left forearm that is tender to palpation. no cellulitis or erythema. tender to palpation NEUROLOGICAL: Cranial nerves II through XII grossly intact Laboratory Results - last 24 hr 12/27/16 12/27/16 12/28/16 17:36 21:22 05:32 POC Glucometer 97 270 158 12/28/16 11:47 POC Glucometer 158 Active Medications Generic Name Dose Route Start Last Admin Trade Name Freq PRN Reason Stop Dose Admin Acetaminophen 1,000 mg 12/28/16 10:09 12/28/16 10:23 Ofirmev Injection - IVPB 12/29/16 10:10 1,000 mg Q8H PRN Administration FEVER OR PAIN Apixaban 2.5 mg 12/27/16 10:00 12/28/16 10:24 Eliquis - PO 2.5 mg BID [facility] Administration Aspirin 81 mg 12/27/16 10:00 12/28/16 10:26 Asa - PO 81 mg DAILY [facility] Administration Atorvastatin Calcium 20 mg 12/27/16 22:00 12/27/16 21:35 Lipitor - PO 20 mg HS [facility] Administration Carvedilol 12.5 mg 12/27/16 14:50 12/28/16 10:24 Coreg - PO 12.5 mg BID [facility] Administration Gabapentin 100 mg 12/27/16 10:00 12/28/16 10:25 Neurontin - PO 100 mg DAILY [facility] Administration Hydralazine HCl 50 mg 12/27/16 14:49 12/28/16 10:25 Apresoline - PO 50 mg BID [facility] Administration Azithromycin 250 mls @ 250 mls/hr 12/27/16 10:00 12/27/16 10:38 Zithromax 500mg Ivpb (Pre-Docked) IVPB 250 mls/hr DAILY [facility] Administration Ceftriaxone Sodium 50 mls @ 100 mls/hr 12/27/16 10:00 12/28/16 12:03 Rocephin 1gm Ivpb (Pre-Docked) IVPB 100 mls/hr DAILY [facility] Administration Insulin Aspart 1 vial 12/27/16 07:00 12/28/16 12:02 Novolog Vial Sliding Scale - SQ Not Given ACHS [facility] Protocol Isosorbide Mononitrate 30 mg 12/27/16 14:50 12/28/16 10:24 Imdur - PO 30 mg DAILY [facility] Administration Pantoprazole Sodium 40 mg 12/27/16 10:00 12/28/16 10:24 Protonix - PO 40 mg BID [facility] Administration Sevelamer Carbonate 800 mg 12/27/16 08:00 12/28/16 12:02 Renvela - PO 800 mg TIDCM [facility] Administration Tamsulosin HCl 0.4 mg 12/27/16 08:30 12/28/16 08:34 Flomax - PO 0.4 mg DAILY@0830 [facility] Administration Tramadol HCl 50 mg 12/26/16 22:03 12/28/16 04:32 Ultram - PO 50 mg Q6H PRN Administration PAIN Vancomycin HCl 1,000 mg 12/29/16 09:00 Vancomycin (Pre-Docked) IVPB 12/29/16 09:01 ONCE ONE ASSESSMENT/PLAN: Patient is a 66 year old male with an extensive PMH who presents to the hospital with left arm swelling and pain also with cough and subjective fevers and chills. Left forearm mass/swelling -R/O abscess vs chronic hematoma vs soft tissue mass US results noted Will get CT scan of LUE for further evaluation Surgical consult to see if intervention needed pain control Vancomycin tomorrow with dialysis ESRD on HS/Fluid overload Dialysis tomorrow per renal Renvela Possible infiltrate in Chest x-ray/possible PNA continue Azithromycin and ceftriaxone ID consult appreciated mechanical fall Head CT WNL CAD s/p cardiac stent Continue Elliquis 2.5mg PO BID CVA Continue Elliquis, aspirin statin Hypertension Continue Hydralazine 50mg PO BID Carvedilol 12.5 mg BID Diabetes Mellitus Finger stick glucose monitoring Insulin sliding scale Diabetic diet BPH Continue flomax 0.4mg Anemia-likely anemia of chronic disease monitor H/H FEN Fluid restriction no electrolyte issues renal diet Prophylaxis Eliquis Protonix Visit type - Emergency Visit Emergency Visit: Yes ED Registration Date: 12/26/16 Care time: The patient presented to the Emergency Department on the above date and was hospitalized for further evaluation of their emergent condition. - New Patient This patient is new to me today: Yes Date on this admission: 12/28/16 - Critical Care Critical Care patient: No
[2016-12-28] MEDS: AZITHROMYCIN IVPB 250 ML IVPB SCH (13:29)
[2016-12-28] MEDS ORDERED: GENTAMICIN 80 MG PREMIXED IVPB 100 ML IVPB ONE (13:30)
--- NOTE | 2016-12-28 14:09 | PN ---
Teaching Attending Note Name of Resident: Johnathan Mayfield ATTENDING PHYSICIAN STATEMENT I saw and evaluated the patient. I reviewed the resident's note and discussed the case with the resident. I agree with the resident's findings and plan as documented. Patient is c/o having pain of LUE due to hematoma. Vital Signs Temperature 97.7 F 12/28/16 13:15 Pulse Rate 64 12/28/16 13:15 Respiratory Rate 20 12/28/16 10:27 Blood Pressure 117/40 12/28/16 13:15 O2 Sat by Pulse Oximetry (%) 96 12/27/16 21:00 CBCD WBC 6.1 K/mm3 (4.0-10.0) 12/27/16 08:25 RBC 3.26 M/mm3 (4.00-5.60) L 12/27/16 08:25 Hgb 9.6 GM/dL (11.7-16.9) L 12/27/16 08:25 Hct 30.4 % (35.4-49) L 12/27/16 08:25 MCV 93.1 fl (80-96) 12/27/16 08:25 MCHC 31.5 g/dl (32.0-35.9) L 12/27/16 08:25 RDW 18.2 % (11.9-15.9) H 12/27/16 08:25 Plt Count 190 K/MM3 (134-434) 12/27/16 08:25 MPV 8.2 fl (7.5-11.1) 12/27/16 08:25 CMP Sodium 136 mmol/L (136-145) 12/27/16 08:25 Potassium 4.9 mmol/L (3.5-5.1) 12/27/16 08:25 Chloride 101 mmol/L (98-107) 12/27/16 08:25 Carbon Dioxide 26 mmol/L (21-32) 12/27/16 08:25 Anion Gap 9 (8-16) 12/27/16 08:25 BUN 48 mg/dL (7-18) H 12/27/16 08:25 Creatinine 5.1 mg/dL (0.7-1.3) H 12/27/16 08:25 Creat Clearance w eGFR 11.37 (>60) 12/27/16 08:25 Random Glucose 118 mg/dL (74-106) H 12/27/16 08:25 Calcium 8.7 mg/dL (8.5-10.1) 12/27/16 08:25 Total Bilirubin 0.4 mg/dL (0.2-1.0) 12/27/16 08:25 AST 23 U/L (15-37) 12/27/16 08:25 ALT 19 U/L (12-78) 12/27/16 08:25 Alkaline Phosphatase 149 U/L (45-117) H 12/27/16 08:25 Total Protein 6.9 g/dl (6.4-8.2) 12/27/16 08:25 Albumin 2.9 g/dl (3.4-5.0) L 12/27/16 08:25 CARDIAC ENZYMES Creatine Kinase 63 IU/L (39-308) 12/26/16 16:29 Troponin I 0.05 ng/ml (0.00-0.05) D 12/26/16 16:29 Current Medications Generic Name Dose Route Start Last Admin Trade Name Freq PRN Reason Stop Dose Admin Acetaminophen 1,000 mg 12/28/16 10:09 12/28/16 10:23 Ofirmev Injection - IVPB 12/29/16 10:10 1,000 mg Q8H PRN Administration FEVER OR PAIN Apixaban 2.5 mg 12/27/16 10:00 12/28/16 10:24 Eliquis - PO 2.5 mg BID [facility] Administration Aspirin 81 mg 12/27/16 10:00 12/28/16 10:26 Asa - PO 81 mg DAILY [facility] Administration Atorvastatin Calcium 20 mg 12/27/16 22:00 12/27/16 21:35 Lipitor - PO 20 mg HS [facility] Administration Carvedilol 12.5 mg 12/27/16 14:50 12/28/16 10:24 Coreg - PO 12.5 mg BID [facility] Administration Gabapentin 100 mg 12/27/16 10:00 12/28/16 10:25 Neurontin - PO 100 mg DAILY [facility] Administration Hydralazine HCl 50 mg 12/27/16 14:49 12/28/16 10:25 Apresoline - PO 50 mg BID [facility] Administration Azithromycin 250 mls @ 250 mls/hr 12/27/16 10:00 12/28/16 13:29 Zithromax 500mg Ivpb (Pre-Docked) IVPB 250 mls/hr DAILY [facility] Administration Ceftriaxone Sodium 50 mls @ 100 mls/hr 12/27/16 10:00 12/28/16 12:03 Rocephin 1gm Ivpb (Pre-Docked) IVPB 100 mls/hr DAILY [facility] Administration Gentamicin Sulfate/Sodium Chloride 100 mls @ 100 mls/hr 12/28/16 13:30 Garamycin 80 Mg Premixed Ivpb - IVPB 12/28/16 14:29 ONCE ONE Insulin Aspart 1 vial 12/27/16 07:00 12/28/16 12:02 Novolog Vial Sliding Scale - SQ Not Given ACHS [facility] Protocol Isosorbide Mononitrate 30 mg 12/27/16 14:50 12/28/16 10:24 Imdur - PO 30 mg DAILY [facility] Administration Pantoprazole Sodium 40 mg 12/27/16 10:00 12/28/16 10:24 Protonix - PO 40 mg BID [facility] Administration Sevelamer Carbonate 800 mg 12/27/16 08:00 12/28/16 12:02 Renvela - PO 800 mg TIDCM [facility] Administration Tamsulosin HCl 0.4 mg 12/27/16 08:30 12/28/16 08:34 Flomax - PO 0.4 mg DAILY@0830 [facility] Administration Tramadol HCl 50 mg 12/26/16 22:03 12/28/16 04:32 Ultram - PO 50 mg Q6H PRN Administration PAIN Vancomycin HCl 1,000 mg 12/29/16 09:00 Vancomycin (Pre-Docked) IVPB 12/29/16 09:01 ONCE ONE Home Medications Medication Instructions Recorded Apixaban [Eliquis -] 2.5 mg PO BID #60 tablet 12/07/16 Aspirin [ASA -] 81 mg PO DAILY #0 tab.chew 12/07/16 Atorvastatin Ca [Lipitor] 20 mg PO HS #0 tablet 12/07/16 Carvedilol [Coreg -] 12.5 mg PO BID #60 tablet 12/07/16 Gabapentin [Neurontin -] 100 mg PO DAILY #0 capsule 12/07/16 Hydralazine HCl [Apresoline -] 50 mg PO BID #0 tablet 12/07/16 Insulin Sliding Scale [Novolog 1 vial SQ ACHS #0 units 02/26/17 Vial Sliding Scale -] Isosorbide Mononitrate [Imdur -] 30 mg PO DAILY #0 tab.sr.24h 12/07/16 Pantoprazole Sodium [Protonix -] 40 mg PO BID #0 tablet.ec 12/07/16 Sevelamer Carbonate [Renvela -] 800 mg PO TIDCM #0 tab 12/07/16 Tamsulosin HCl [Flomax -] 0.4 mg PO DAILY@0830 #0 cap.er.24h 12/07/16 Tramadol HCl [Ultram -] 50 mg PO Q6H PRN #20 tablet MDD 4 12/07/16 US of upper left extremity: Proximal left Forearm 5.4x5x2.4 abcess vs soft tissue mass vs subacute to chronic hematoma A/P: Patient is a 66 year old male with significant past medical hx of ESRD on HD has a permacath CAD s/p CABG, cardiac stent; AICD; Hypertension; Hyperlipidemia; Type 2 diabetes mellitus; Chronic systolic heart failure; Paroxysmal atrial fibrillation; Peripheral artery disease; Right arm DVT; CVA; Anemia; Left femur fracture repair; 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 # Acute vs Subacute vs chronic Left proximal forearm swelling / with pain ;Us of left upper extremity as above , Discussed with ; the surgeon who stated that the patient has a Hematoma. Just warm compresses to the arm and continue Home Ultram that was given to him. s/p 1 dose of vancomycin. # ESRD on HD ( ) getting dialyzed now; continue dialysis as scheduled as an outpatient. # CXR does not report any infiltrate , no fever or chills, no cough so will discontinue the antibiotics # S/P mechanical fall yesterday :Ct of the head negative ; No complaints of headache or any other symptom at this time. # CAD s/p cardiac stent continue Elliquis 2.5mg PO BID # CVA continue Elliquis, aspirin, statin 20mg # Hypertension continue Hydralazine 50mg Po BID; Carvedilol 12.5 mg BID # T2DM SS with coverage ;Diabetic diet # BPH continue Tamsulocin 0.4mg # Anemia-H/H ;Transfuse if < 7gm/dl # Prophylaxis DVT: already on Elliquis; For GI: On pantoprazole # Code status: Full Code Patient can be discharged home.
--- NOTE | 2016-12-28 14:16 | CONS ---
DATE OF CONSULTATION: 12/26/2016 REASON FOR CONSULTATION: Left forearm swelling. This is an inpatient consultation at the request of Dr. Aaron Deluna. BRIEF HISTORY: This is a 66-year-old male with a very complex past medical history, including coronary artery disease, end-stage renal disease, hypertension, hyperlipidemia, diabetes, paroxysmal atrial fibrillation, peripheral artery disease, right DVT, stroke, anemia, benign prostatitic hypertrophy. He currently is on multiple medications; at least 11 are listed in the chart, but, of importance, he is on Eliquis, which is a full anticoagulation medication, and aspirin, which is an antiplatelet medication. Patient was noted to have swelling, a fluctuant area to his left forearm and a request was made for a general surgery evaluation. Patient states that he has pain in that area. PAST SURGICAL HISTORY: Arterial venous fistula, a built-in defibrillator, a coronary stent, left femur fracture surgery, left 3rd finger surgery. FAMILY HISTORY: Noncontributory. He has no known drug allergies. REVIEW OF SYSTEMS: General: The patient admits to fatigue. Cardiac: He denies chest pain. Respiratory: He denies shortness of breath. Gastrointestinal: He denies nausea or vomiting. Genitourinary: He denies dysuria. Musculoskeletal: He admits to pain in his left shoulder and pain and a swelling area in his left proximal forearm. PHYSICAL EXAMINATION: General: This is a 66-year-old male who looks much older than his stated age. He is lethargic. Neck: He has a swollen neck. Chest: Unremarkable. Abdomen: Soft. Extremities: Edema. On his left arm at the area of concern, there is an area of fluctuance and underlying ecchymosis, consistent with a hematoma. In order to confirm this, an aspiration was done with an 18-gauge needle, confirming that this was a hematoma and not an abscess. At this point, I would not recommend drainage of hematoma in the setting of a patient with chronic edema as well as full anticoagulation. This, very likely, will turn into a complicated wound, which would be far more trouble than the current hematoma. Recommend warm compresses and elevation, if possible. This hematoma should resorb within the next 1 to 2 months. Clinically, there is no compartment syndrome and no indication for drainage. DO TITA [id number]
--- NOTE | 2016-12-28 14:34 | CONS ---
DATE OF CONSULTATION: DATE OF DICTATION: 12/28/2016 A 66-year-old male with history of end-stage renal disease, on hemodialysis evaluated for a left forearm swelling. He had presented with complaints of fever, cough, and an increasing left forearm mass. He has apparently been seen at [facility] in the emergency room and was discharged home. Here, a sonogram was performed and showed a large phlegmon/abscess, possible infected fluid collection. Surgical evaluation was requested. He denies any traumatic injury or any phlebotomy at that area. No recent fever or chills reported. He denies any chest pain, shortness of breath, cough, or sputum production. Chest x-ray does show some increased markings at the bases, right greater than left. PAST MEDICAL HISTORY: Positive for end-stage renal disease, on hemodialysis, diabetes mellitus, coronary artery disease, stroke, atrial fibrillation, congestive heart failure, hypertension, hyperlipidemia, DVT. PAST SURGICAL HISTORY: Status post permanent pacemaker and coronary artery bypass. There is some question of valve replacement, as noted on chest x-ray. No known allergies. SOCIAL HISTORY: He lives at home. Denies tobacco or alcohol use. SYSTEMS REVIEW: Neurologic: Positive for stroke. Cardiac: Negative chest pain or palpitations. Respiratory: As per HPI. Gastrointestinal: Negative vomiting or diarrhea. Genitourinary: End-stage renal disease, on hemodialysis. MEDICATIONS: Flomax, Zithromax, ceftriaxone, Eliquis, Neurontin, Coreg, Apresoline, Lipitor, Imdur, aspirin, Ultram, Protonix. LABORATORY DATA: White count 6.1 with 74 neutrophils, 9 lymphocytes, 12 monocytes. Creatinine 5.1. PHYSICAL EXAMINATION: General: He is awake and alert, in moderate distress secondary to left forearm pain. Vital Signs: Afebrile. HEENT: Sclerae anicteric. Heart Sounds: S1, S2. Lungs: Diminished breath sounds at the bases. Abdomen: Soft. No tenderness elicited. Extremities: Negative for pedal edema. On examination of the left forearm, there is a large fluctuant mass present on the left forearm over the extensor aspect. It is fluctuant and tender. There is no appreciable warmth. No erythema noted. IMPRESSION: 1. Large fluctuant left forearm mass, possible infected hematoma versus abscess. 2. Possible sepsis secondary to soft tissue source. 3. End-stage renal disease, on hemodialysis. 4. Possible pneumonia. Blood cultures have been obtained. Advised to add doses of vancomycin and gentamicin. Surgical evaluation for incision and drainage. Empiric Zithromax and ceftriaxone for empiric treatment of pneumonia. Will follow. Thank you for the kind referral. GERBER GOINS M.D. [id number]
[2016-12-28 17:54] VITALS: BP 145/88; PULSE 62; TEMP 97.4
--- NOTE | 2016-12-28 19:00 | DS ---
Physical Exam: SUBJECTIVE: Patient seen and examined at bedside OBJECTIVE: Vital Signs Period Temp Pulse Resp BP Sys/Hinds Pulse Ox Last 24 Hr 97.4 F-97.9 F 62-82 20-20 95-145/30-88 96 PHYSICAL EXAM GENERAL: The patient is awake, alert, NAD ENT: moist mucous membranes. NECK: Trachea midline LUNGS: bilateral crackles HEART: Regular rate and rhythm, S1, S2 ABDOMEN: Soft, nontender, nondistended, normoactive bowel sounds EXTREMITIES: LEft upper extremity of warm when compared to right. There is a large fluctuant mass on the left forearm that is tender to palpation. no cellulitis or erythema. tender to palpation NEUROLOGICAL: Cranial nerves II through XII grossly intact LABS Laboratory Results - last 24 hr 12/27/16 12/28/16 12/28/16 21:22 05:32 11:47 POC Glucometer 270 158 158 12/28/16 17:29 POC Glucometer 127 HOSPITAL COURSE: Date of Admission:12/26/16 Date of Discharge: 12/28/16 66M with extensive PMH presnted to the ED with left arm swelling and well circumscribed mass of the left forearm. Initially it was thought the patient may have had an abscess given its fluctuance. PAtient had an ultrasound which showed abscess vs hematoma vs phlegmon. Surgery consult obtained and he puntured it with a needle in attempt to drain something and he got only blood without pus. It was a hematoma per surgery and they stated he was stable for discharge. Patient was seen by ID and was placed on antibiotics as well. seen by nephrology and he was started back on his dialysis schedule. patient was stable for discharge with follow up with PMD and nephologist and is to resume normal dialysis schedule. Minutes to complete discharge: 40 Discharge Summary Reason For Visit: MASS OF UPPER EXTREMITY Current Active Problems Arm mass (Acute) DVT prophylaxis (Acute) Fluid overload (Acute) Hyperkalemia, diminished renal excretion (Acute) Subtherapeutic international normalized ratio (INR) (Acute) Unable to ambulate (Acute) Anemia (Chronic) BPH (benign prostatic hypertrophy) (Chronic) Chronic systolic heart failure (Chronic) Coronary artery disease (Chronic) DVT (deep venous thrombosis) (Chronic) History of hemiarthroplasty of left hip (Chronic) Hx of CABG (Chronic) Hyperlipidemia (Chronic) Hypertension (Chronic) ICD (implantable cardioverter-defibrillator) in place (Chronic) PAF (paroxysmal atrial fibrillation) (Chronic) PVD (peripheral vascular disease) (Chronic) S/P mitral valve repair (Chronic) Status post coronary artery stent placement (Chronic) Status post percutaneous transluminal coronary angioplasty (Chronic) Type 2 diabetes mellitus (Chronic) Condition: Stable - Instructions Diet, Activity, Other Instructions: renal diet, warm compresses to the Hematoma site. Follow with primary for follow up with the swelling of the left upper extremity swelling due to hematoma Referrals: Gregory Dumont MD [Staff Physician] - Yrn Torres MD [Staff Physician] - Kenyon Mathew MD [Staff Physician] - Disposition: HOME - Home Medications Comprehensive Discharge Medication List: Ambulatory Orders Apixaban [Eliquis -] 2.5 mg PO BID #60 tablet 12/07/16 Aspirin [ASA -] 81 mg PO DAILY #0 tab.chew 12/07/16 Atorvastatin Ca [Lipitor] 20 mg PO HS #0 tablet 12/07/16 Carvedilol [Coreg -] 12.5 mg PO BID #60 tablet 12/07/16 Gabapentin [Neurontin -] 100 mg PO DAILY #0 capsule 12/07/16 Hydralazine HCl [Apresoline -] 50 mg PO BID #0 tablet 12/07/16 Insulin Sliding Scale [Novolog Vial Sliding Scale -] 1 vial SQ ACHS #0 units Isosorbide Mononitrate [Imdur -] 30 mg PO DAILY #0 tab.sr.24h 12/07/16 Pantoprazole Sodium [Protonix -] 40 mg PO BID #0 tablet.ec 12/07/16 Sevelamer Carbonate [Renvela -] 800 mg PO TIDCM #0 tab 12/07/16 Tamsulosin HCl [Flomax -] 0.4 mg PO DAILY@0830 #0 cap.er.24h 12/07/16 Tramadol HCl [Ultram -] 50 mg PO Q6H PRN #20 tablet MDD 4 12/07/16 This patient is new to me today: Yes Date on this admission: 12/28/16 Emergency Visit: No Critical Care patient: No - Discharge Referral Referred to [facility] Yes Physician Referral: Gregory Lange MD ([facility])
[2016-12-29] MEDS ORDERED: VANCOMYCIN 1 GRAM (PRE-DOCKED) 1,000 MG/250 ML BAG IVPB ONE (09:00)
== END 2016-12-28 18:05 | disposition home or self-care (01) ==
LOC: SUPCPDRO 15:37 → JER 15:37 → J5S 20:34
PROVIDERS: ADMIT Internal Medicine; ATTEND Internal Medicine
PROC: 5A1D60Z (ICD-10-PCS; principal; 2016-12-27)
DX: R22.32 Localized swelling, mass and lump, left upper limb (principal); N18.6 End stage renal disease; I13.2 Hypertensive heart and chronic kidney disease with heart failure and with stage 5 chronic kidney disease, or end stage renal disease; Z99.2 Dependence on renal dialysis; E78.5 Hyperlipidemia, unspecified; I50.22 Chronic systolic (congestive) heart failure; Z98.61 Coronary angioplasty status; N40.0 Benign prostatic hyperplasia without lower urinary tract symptoms; D64.9 Anemia, unspecified; Z86.73 Personal history of transient ischemic attack (TIA), and cerebral infarction without residual deficits; E11.9 Type 2 diabetes mellitus without complications; I48.0 Paroxysmal atrial fibrillation; E87.70 Fluid overload, unspecified
CPT/HCPCS: 36415; 70450-TC; 71010-TC; 76882; 80053; 82550; 83605; 83735; 83880; 84100; 84484; 85025; 85610; 85730; 86850; 86900; 86901; 87040; 93005; 93010; 99284-25; G0378; J0885

== ENCOUNTER 2017-01-01 11:16 | Inpatient (IN) | payer MEDICARE, OTHER ==
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
[2017-01-01 12:01] LABS: MCH 29.8 pg (25.7-33.7); MCHC 32.1 g/dl (32.0-35.9); MEAN CELL VOLUME 92.8 fl (80-96); MEAN PLT VOLUME 8.9 fl (7.5-11.1); PLATELET COUNT 140 K/MM3 (134-434); RDW 17.2 % (11.9-15.9); WHITE BLOOD COUNT 7.7 K/mm3 (4.0-10.0)
[2017-01-01 12:36] LABS: PLATELET ESTIMATE SLT DECREASED (NORMAL)
[2017-01-01 12:43] LABS: INR 1.13 (0.82-1.09); PROTHROMBIN TIME (PATIENT) 12.5 SEC (9.98-11.88)
[2017-01-01 12:44] LABS: ALBUMIN 3.1 g/dl (3.4-5.0); BILIRUBIN,TOTAL 0.4 mg/dL (0.2-1.0); CALCIUM 8.5 mg/dL (8.5-10.1); CREATININE 5.1 mg/dL (0.7-1.3)
[2017-01-01 12:47] LABS: TROPONIN I 0.05 ng/ml (0.00-0.05)
[2017-01-01] MEDS ORDERED: morphine CARPU-JECT 2 MG/1 ML DISP.SYRIN IVPUSH ONE ×2 (13:13→23:27)
[2017-01-01] MEDS ORDERED: morphine CARPU-JECT 2 MG/1 ML DISP.SYRIN ONE (13:17)
[2017-01-01] MEDS ORDERED: EPOETIN ALFA 2,000 UNITS/1 ML VIAL IVPUSH ONE (14:34)
--- NOTE | 2017-01-01 14:41 | CONSULT ---
Consult Consult Specialty:: Nephrology Reason for Consultation:: ESRD - History of Present Illness Chief Complaint: chest pain History of Present Illness: Pt is a 66 year old male with pmhx of ESRD, DM, anemia, CAD, CVA, CHF, HTN, a- fib and DVT who presents to the ER complaining of pain from a left arm hematoma and from chest pain. He denies shortness of breath. He denies palpitations. He is due for HD today. He denies fevers or chills. He is awake and able to give history. 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: CVA Cardio/Vascular: Yes: AFIB (paroxysmal), CAD (CABG, PCI/KAT), CHF, Deep Vein Thrombosis, HTN, Hyperlipdemia Renal/: Yes: Renal Failure, Hemodialysis Psych: Yes: Anxiety Endocrine: Yes: Diabetes Mellitus - Past Surgical History Past Surgical History: Yes: AICD, Amputation (right 3rd finger), CABG (3v CABG and mitral ring 2009 (GUADALUPE->LAD, SVG->LPL, SVG->D1 jump D2.), Stent - Alcohol/Substance Use Hx Alcohol Use: No History of Substance Use: reports: Prescription - Smoking History Smoking history: Never smoked Have you smoked in the past 12 months: No Aproximately how many cigarettes per day: 0 If you are a former smoker, when did you quit?: 2013 - Social History Usual Living Arrangement: With Spouse ADL: Independent History of Recent Travel: No Home Medications - Allergies Allergies/Adverse Reactions: Allergies Allergy/AdvReac Type Severity Reaction Status Date / Time No Known Drug Allergies Allergy Verified 01/01/17 11:18 - Home Medications Home Medications: Ambulatory Orders Apixaban [Eliquis -] 2.5 mg PO BID #60 tablet 12/07/16 Aspirin [ASA -] 81 mg PO DAILY #0 tab.chew 12/07/16 Atorvastatin Ca [Lipitor] 20 mg PO HS #0 tablet 12/07/16 Carvedilol [Coreg -] 12.5 mg PO BID #60 tablet 12/07/16 Gabapentin [Neurontin -] 100 mg PO DAILY #0 capsule 12/07/16 Hydralazine HCl [Apresoline -] 50 mg PO BID #0 tablet 12/07/16 Insulin Sliding Scale [Novolog Vial Sliding Scale -] 1 vial SQ ACHS #0 units Isosorbide Mononitrate [Imdur -] 30 mg PO DAILY #0 tab.sr.24h 12/07/16 Pantoprazole Sodium [Protonix -] 40 mg PO BID #0 tablet.ec 12/07/16 Sevelamer Carbonate [Renvela -] 800 mg PO TIDCM #0 tab 12/07/16 Tamsulosin HCl [Flomax -] 0.4 mg PO DAILY@0830 #0 cap.er.24h 12/07/16 Tramadol HCl [Ultram -] 50 mg PO Q6H PRN #20 tablet MDD 4 12/07/16 Family Disease History - Family Disease History Family Disease History: Diabetes: Brother, Heart Disease: Brother, Other: Father (Stroke) Review of Systems - Review of Systems Constitutional: reports: No Symptoms Eyes: reports: No Symptoms HENT: reports: No Symptoms Neck: reports: No Symptoms Cardiovascular: reports: Chest Pain, Edema Gastrointestinal: reports: No Symptoms Genitourinary: reports: No Symptoms Musculoskeletal: reports: Other (left arm pain) Integumentary: reports: No Symptoms Neurological: reports: No Symptoms Endocrine: reports: No Symptoms Physical Exam Vital Signs: Vital Signs Temperature 97.7 F 01/01/17 11:19 Pulse Rate 76 01/01/17 11:19 Respiratory Rate 20 01/01/17 11:19 Blood Pressure 159/93 01/01/17 11:19 O2 Sat by Pulse Oximetry (%) 100 01/01/17 11:19 Constitutional: Yes: Calm Eyes: Yes: Conjunctiva Clear HENT: Yes: Atraumatic Cardiovascular: Yes: S1, S2 Respiratory: Yes: CTA Bilaterally Gastrointestinal: Yes: Soft Musculoskeletal: Yes: Other (left arm hematoma) Edema: Yes Edema: LUE: 1+, RUE: 1+ Neurological: Yes: Oriented Psychiatric: Yes: Oriented Labs: Laboratory Tests 01/01/17 01/01/17 11:41 11:41 Hgb 9.5 L BUN 42 H Creatinine 5.1 H Imaging - Results Chest X-ray: Report Reviewed Problem List - Problems (1) Chest pain Code(s): R07.9 - CHEST PAIN, UNSPECIFIED Qualifiers: Chest pain type: unspecified Qualified Code(s): R07.9 - Chest pain, unspecified (2) Edema of left forearm Code(s): R60.9 - EDEMA, UNSPECIFIED (3) Anemia Code(s): D64.9 - ANEMIA, UNSPECIFIED Qualifiers: (4) BPH (benign prostatic hypertrophy) Code(s): N40.0 - BENIGN PROSTATIC HYPERPLASIA WITHOUT LOWER URINRY TRACT SYMP (5) ESRD (end stage renal disease) on dialysis Code(s): N18.6 - END STAGE RENAL DISEASE Z99.2 - DEPENDENCE ON RENAL DIALYSIS (6) Noncompliance of patient with renal dialysis Code(s): Z91.15 - PATIENT'S NONCOMPLIANCE WITH RENAL DIALYSIS Assessment/Plan Current Medications Generic Name Dose Route Start Last Admin Trade Name Freq PRN Reason Stop Dose Admin Epoetin Devin 5,000 units 01/01/17 14:34 Epogen - IVPUSH 01/01/17 14:35 ONCE ONE Impression 1. ESRD 2. CAD 3. HTN 4. narcotic dependence 5. non compliance 6. pleural effusions 7. anemia 8. chest pain 9. DVT 10. hx GI bleed Plan - discussed with ER - will arrange for HD today - pt currently denies chest pain - resume home meds - surgery eval for hematoma Dr Campos
--- NOTE | 2017-01-01 14:58 | HP ---
CHIEF COMPLAINT:left arm pain and swelling PCP: Melissa HISTORY OF PRESENT ILLNESS: The patient is a 66 year old male, with a significant past medical history of ESRD(T,Th, Sat; dialysis scheduled for today), DM, anemia, CVA, CAD s/p pacemaker and CABG, CHF, HTN, HLD, DVT(on Eliquis), AFib(on Aspirin), GI bleed, enlarged prostate and anxiety, who presents to the emergency department today with a chief complaint of left arm pain. He has been complaining of this hematoma for about a month now. He was seen here at [facility] multiple times for the same issues and i recently discharged him with surgical follow up. He was seen by surgery Dr. Upton as inpatient on last admission and he drained it with a needle and it was just hematoma no evidence or purulence or infection. He was given follow up 3 times with surgery and never followed up. Apparently he was scheduled at [facility] to have a surgery for the hematoma and never followed up with surgery.The pain has been getting worse and worse per the patient over the past 2 weeks. came to ED yesterday for same issue given follow up as outpatient with surgery and never scheduled it. He also reports chest pain but denies that he is having chest pain at this time. He denies any shortness of breath, diaphoresis, or palpitations. Denies fevers chills heamturia dysuria diarrhea or constipation. The patient denies any chills , cough, headache, or dizziness. He missed his dialysis today. Seen by Dr. Campos who will set him up for dialysis. ER course was notable for: (1)pain control (2)EKG (3)CXR Recent Travel: Denies PAST MEDICAL HISTORY:As above PAST SURGICAL HISTORY: Fistula PAcemaker CABG and Stents Social History: Smoking:Denies Alcohol:Denies Drugs: Denies Family History: Allergies No Known Drug Allergies Allergy (Verified 01/01/17 11:18) HOME MEDICATIONS: Home Medications Medication Instructions Recorded Apixaban [Eliquis -] 2.5 mg PO BID #60 tablet 12/07/16 Aspirin [ASA -] 81 mg PO DAILY #0 tab.chew 12/07/16 Atorvastatin Ca [Lipitor] 20 mg PO HS #0 tablet 12/07/16 Carvedilol [Coreg -] 12.5 mg PO BID #60 tablet 12/07/16 Gabapentin [Neurontin -] 100 mg PO DAILY #0 capsule 12/07/16 Hydralazine HCl [Apresoline -] 50 mg PO BID #0 tablet 12/07/16 Insulin Sliding Scale [Novolog 1 vial SQ ACHS #0 units 12/07/16 Vial Sliding Scale -] Isosorbide Mononitrate [Imdur -] 30 mg PO DAILY #0 tab.sr.24h 12/07/16 Pantoprazole Sodium [Protonix -] 40 mg PO BID #0 tablet.ec 12/07/16 Sevelamer Carbonate [Renvela -] 800 mg PO TIDCM #0 tab 12/07/16 Tamsulosin HCl [Flomax -] 0.4 mg PO DAILY@0830 #0 cap.er.24h 12/07/16 Tramadol HCl [Ultram -] 50 mg PO Q6H PRN #20 tablet MDD 4 12/07/16 REVIEW OF SYSTEMS CONSTITUTIONAL: Absent: fever, chills, diaphoresis, generalized weakness, malaise, loss of appetite, weight change HEENT: Absent: rhinorrhea, nasal congestion, throat pain, throat swelling, difficulty swallowing, mouth swelling, ear pain, eye pain, visual changes CARDIOVASCULAR: Absent: syncope, palpitations, irregular heart rate, lightheadedness, peripheral edema Present: chest pain RESPIRATORY: Absent: cough, shortness of breath, dyspnea with exertion, orthopnea, wheezing, stridor, hemoptysis GASTROINTESTINAL: Absent: abdominal pain, abdominal distension, nausea, vomiting, diarrhea, constipation, melena, hematochezia GENITOURINARY: Absent: dysuria, frequency, urgency, hesitancy, hematuria, flank pain, genital pain MUSCULOSKELETAL: Absent: myalgia, arthralgia, joint swelling, back pain, neck pain Present: Left arm hematoma left arm pain SKIN: Absent: rash, itching, pallor HEMATOLOGIC/IMMUNOLOGIC: Absent: easy bleeding, easy bruising, lymphadenopathy, frequent infections ENDOCRINE: Absent: unexplained weight gain, unexplained weight loss, heat intolerance, cold intolerance NEUROLOGIC: Absent: headache, focal weakness or paresthesias, dizziness, unsteady gait, seizure, mental status changes, bladder or bowel incontinence PSYCHIATRIC: Absent: anxiety, depression, suicidal or homicidal ideation, hallucinations. PHYSICAL EXAMINATION GENERAL: Awake, alert, and fully oriented, in no acute distress. EARS, NOSE, THROAT: Moist mucous membranes. LUNGS: Breath sounds equal, clear to auscultation bilaterally. No wheezes, and no crackles. No accessory muscle use. HEART: Regular rate and rhythm, normal S1 and S2 ABDOMEN: Soft, nontender, not distended, normoactive bowel sounds MUSCULOSKELETAL: No CVA tenderness. UPPER EXTREMITIES: Left Arm hematoma skin is taut. unchanged from when i saw him on discharge 5 days ago LOWER EXTREMITIES: warm, No calf tenderness No peripheral edema. NEUROLOGICAL: Cranial nerves II-XII grossly intact ASSESSMENT/PLAN: Patient is a 66 year old male with an extensive PMH who presents to the hospital with left arm swelling and pain also with cough and subjective fevers and chills. Left forearm mass/swelling/pain-from hematoma US results noted from previous admission Vascular surgery consult to see if intervention needed pain control with tramadol Chest pain: r/o ACS intial troponin negative trend troponin x2 more times ESRD on HS/Fluid overload Dialysis today per renal Renvela CAD s/p cardiac stent Continue Elliquis 2.5mg PO BID continue statin continue aspirin continue beta ruth CVA Continue Elliquis, aspirin statin Hypertension Continue Hydralazine 50mg PO BID Carvedilol 12.5 mg BID Diabetes Mellitus Finger stick glucose monitoring ACHS Insulin sliding scale Diabetic diet BPH Continue flomax 0.4mg Anemia-likely anemia of chronic disease monitor H/H procrit given by nephrology FEN Fluid restriction no electrolyte issues renal diet Prophylaxis Eliquis Protonix Visit type - Emergency Visit Emergency Visit: Yes ED Registration Date: 01/01/17 Care time: The patient presented to the Emergency Department on the above date and was hospitalized for further evaluation of their emergent condition. - New Patient This patient is new to me today: Yes Date on this admission: 01/01/17 - Critical Care Critical Care patient: No
--- NOTE | 2017-01-01 14:59 | PN ---
Teaching Attending Note Name of Resident: Johnathan Mayfield ATTENDING PHYSICIAN STATEMENT I saw and evaluated the patient. I reviewed the resident's note and discussed the case with the resident. I agree with the resident's findings and plan as documented. SUBJECTIVE: OBJECTIVE: Vital Signs Period Temp Pulse Resp BP Sys/Hinds Pulse Ox Last 24 Hr 97.7 F 76 20 159/93 100 ASSESSMENT AND PLAN:
[2017-01-01 15:52] VITALS: BMI 27.4
[2017-01-01] MEDS ORDERED: EPOETIN ALFA 2,000 UNIT, EPOETIN ALFA 3,000 UNIT IVPUSH ONE (16:00)
--- NOTE | 2017-01-01 17:04 | EKG ---
Test Reason : Blood Pressure : / mmHG Vent. Rate : 074 BPM Atrial Rate : 066 BPM P-R Int : 000 ms QRS Dur : 166 ms QT Int : 470 ms P-R-T Axes : 000 002 -35 degrees QTc Int : 521 ms Ventricular-paced rhythm WITH FREQUENT PREMATURE VENTRICULAR COMPLEXES Biventricular pacemaker detected ABNORMAL ECG WHEN COMPARED WITH ECG OF 26-DEC-2016 16:42, PREMATURE VENTRICULAR COMPLEXES ARE NOW PRESENT VENT. RATE HAS INCREASED BY 5 BPM Confirmed by JULIA FELIPE MD ([id number]) on 01/01/2017 5:04:10 PM Referred By: Confirmed By:JULIA FELIPE MD
[2017-01-01] MEDS: SEVELAMER CARBONATE 800 MG TAB (FP) PO SCH (17:32)
[2017-01-01] MEDS: INSULIN SLIDING SCALE (NOVOLOG) 1 VIAL SQ SCH ×2 (18:00→21:11)
[2017-01-01] MEDS: traMADol HCL 50 MG TABLET PO PRN (18:09)
[2017-01-01 18:53] LABS: TROPONIN I 0.05 ng/ml (0.00-0.05)
[2017-01-01] MEDS: CARVEDILOL 12.5 MG TABLET (FP) PO SCH (21:12)
[2017-01-01] MEDS: APIXABAN 5 MG TABLET PO SCH (21:12)
[2017-01-01] MEDS: hydrALAZINE HCL 50 MG TABLET (FP) PO SCH (21:12)
[2017-01-01] MEDS: PANTOPRAZOLE 40 MG TABLET (FP) PO SCH (21:13)
[2017-01-01] MEDS ORDERED: ACETAMINOPHEN 325 MG TABLET (FP) PO ONE (21:56)
[2017-01-01] MEDS ORDERED: ATORVASTATIN CA 20 MG TABLET (FP) PO SCH (22:00)
[2017-01-02] MEDS: traMADol HCL 50 MG TABLET PO PRN (02:12)
[2017-01-02] MEDS: INSULIN SLIDING SCALE (NOVOLOG) 1 VIAL SQ SCH ×2 (06:29→12:25)
[2017-01-02] MEDS: SEVELAMER CARBONATE 800 MG TAB (FP) PO SCH ×2 (08:14→12:14)
[2017-01-02] MEDS ORDERED: TAMSULOSIN HCL 0.4 MG CAP.ER.24H (FP) PO SCH (08:30)
[2017-01-02 08:36] LABS: MCH 29.5 pg (25.7-33.7); MCHC 31.9 g/dl (32.0-35.9); MEAN CELL VOLUME 92.5 fl (80-96); MEAN PLT VOLUME 8.8 fl (7.5-11.1); PLATELET COUNT 125 K/MM3 (134-434); RDW 17.6 % (11.9-15.9); WHITE BLOOD COUNT 4.6 K/mm3 (4.0-10.0)
--- NOTE | 2017-01-02 08:55 | PN ---
Progress Note, Physician History of Present Illness: Pt seen and examined at bedside. He is awake and alert. He denies shortness of breath. He tolerated HD last night. - Current Medication List Current Medications: Active Medications Apixaban (Eliquis -) 5 mg PO BID [facility] Last Admin: 01/01/17 21:12 Dose: 5 mg Aspirin (Asa -) 81 mg PO DAILY [facility] Atorvastatin Calcium (Lipitor -) 20 mg PO HS [facility] Last Admin: 01/01/17 21:12 Dose: 20 mg Carvedilol (Coreg -) 12.5 mg PO BID [facility] Last Admin: 01/01/17 21:12 Dose: 12.5 mg Gabapentin (Neurontin -) 100 mg PO DAILY [facility] Hydralazine HCl (Apresoline -) 50 mg PO BID [facility] Last Admin: 01/01/17 21:12 Dose: 50 mg Insulin Aspart (Novolog Vial Sliding Scale -) 1 vial SQ ACHS [facility] PRN Reason: Protocol Last Admin: 01/02/17 06:29 Dose: Not Given Isosorbide Mononitrate (Imdur -) 30 mg PO DAILY [facility] Pantoprazole Sodium (Protonix -) 40 mg PO BID [facility] Last Admin: 01/01/17 21:13 Dose: 40 mg Sevelamer Carbonate (Renvela -) 800 mg PO TIDCM [facility] Last Admin: 01/02/17 08:14 Dose: 800 mg Tamsulosin HCl (Flomax -) 0.4 mg PO DAILY@0830 [facility] Last Admin: 01/02/17 08:14 Dose: 0.4 mg Tramadol HCl (Ultram -) 50 mg PO Q6H PRN PRN Reason: PAIN Last Admin: 01/02/17 02:12 Dose: 50 mg - Objective Vital Signs: Vital Signs Temperature 97.8 F 01/02/17 06:26 Pulse Rate 63 01/02/17 06:26 Respiratory Rate 18 01/02/17 06:26 Blood Pressure 123/69 01/02/17 06:26 O2 Sat by Pulse Oximetry (%) 98 01/01/17 21:00 Constitutional: Yes: Calm Eyes: Yes: Conjunctiva Clear HENT: Yes: Atraumatic Cardiovascular: Yes: S1, S2 Respiratory: Yes: CTA Bilaterally Gastrointestinal: Yes: Soft Musculoskeletal: Yes: Other (left arm hematoma/mass) Edema: Yes Edema: LUE: 1+, RUE: 1+ Neurological: Yes: Oriented Psychiatric: Yes: Oriented Labs: CBC, BMP 01/02/17 08:10 INR, PTT INR 1.13 (0.82-1.09) 01/01/17 11:41 Problem List - Problems (1) Chest pain Code(s): R07.9 - CHEST PAIN, UNSPECIFIED Qualifiers: Chest pain type: unspecified Qualified Code(s): R07.9 - Chest pain, unspecified (2) Edema of left forearm Code(s): R60.9 - EDEMA, UNSPECIFIED (3) Anemia Code(s): D64.9 - ANEMIA, UNSPECIFIED Qualifiers: (4) BPH (benign prostatic hypertrophy) Code(s): N40.0 - BENIGN PROSTATIC HYPERPLASIA WITHOUT LOWER URINRY TRACT SYMP (5) ESRD (end stage renal disease) on dialysis Code(s): N18.6 - END STAGE RENAL DISEASE Z99.2 - DEPENDENCE ON RENAL DIALYSIS (6) Noncompliance of patient with renal dialysis Code(s): Z91.15 - PATIENT'S NONCOMPLIANCE WITH RENAL DIALYSIS Assessment/Plan Current Medications Generic Name Dose Route Start Last Admin Trade Name Freq PRN Reason Stop Dose Admin Apixaban 5 mg 01/01/17 22:00 01/01/17 21:12 Eliquis - PO 5 mg BID [facility] Administration Aspirin 81 mg 01/02/17 10:00 Asa - PO DAILY [facility] Atorvastatin Calcium 20 mg 01/01/17 22:00 01/01/17 21:12 Lipitor - PO 20 mg HS [facility] Administration Carvedilol 12.5 mg 01/01/17 22:00 01/01/17 21:12 Coreg - PO 12.5 mg BID [facility] Administration Gabapentin 100 mg 01/02/17 10:00 Neurontin - PO DAILY [facility] Hydralazine HCl 50 mg 01/01/17 22:00 01/01/17 21:12 Apresoline - PO 50 mg BID [facility] Administration Insulin Aspart 1 vial 01/01/17 16:30 01/02/17 06:29 Novolog Vial Sliding Scale - SQ Not Given ACHS [facility] Protocol Isosorbide Mononitrate 30 mg 01/02/17 10:00 Imdur - PO DAILY [facility] Pantoprazole Sodium 40 mg 01/01/17 22:00 01/01/17 21:13 Protonix - PO 40 mg BID [facility] Administration Sevelamer Carbonate 800 mg 01/01/17 17:30 01/02/17 08:14 Renvela - PO 800 mg TIDCM [facility] Administration Tamsulosin HCl 0.4 mg 01/02/17 08:30 01/02/17 08:14 Flomax - PO 0.4 mg DAILY@0830 [facility] Administration Tramadol HCl 50 mg 01/01/17 15:49 01/02/17 02:12 Ultram - PO 50 mg Q6H PRN Administration PAIN Laboratory Tests 01/01/17 01/01/17 01/02/17 11:41 17:00 08:10 Troponin I 0.05 0.05 Pending Impression 1. ESRD 2. CAD 3. HTN 4. narcotic dependence 5. non compliance 6. pleural effusions 7. anemia 8. chest pain 9. DVT 10. hx GI bleed Plan - pt tolerated HD last night - will wrote orders for HD in am - surgery eval for left arm hematoma - cont current meds - BP is stable - cardiac enzymes are negative x2, follow third set Dr Campos
[2017-01-02] MEDS: hydrALAZINE HCL 50 MG TABLET (FP) PO SCH (09:00)
[2017-01-02] MEDS: CARVEDILOL 12.5 MG TABLET (FP) PO SCH (09:00)
[2017-01-02] MEDS: APIXABAN 5 MG TABLET PO SCH (09:00)
[2017-01-02] MEDS: PANTOPRAZOLE 40 MG TABLET (FP) PO SCH (09:00)
[2017-01-02 09:03] LABS: CALCIUM 8.6 mg/dL (8.5-10.1); CREATININE 3.2 mg/dL (0.7-1.3)
[2017-01-02] MEDS ORDERED: GABAPENTIN 100 MG CAPSULE (FP) PO SCH (10:00)
[2017-01-02] MEDS ORDERED: ASPIRIN 81 MG CHEWABLE TABLETS PO SCH (10:00)
[2017-01-02] MEDS ORDERED: ISOSORBIDE MONONITRATE 30 MG TAB.SR.24H (FP) PO SCH (10:00)
[2017-01-02 11:41] LABS: TROPONIN I 0.04 ng/ml (0.00-0.05)
[2017-01-02] MEDS ORDERED: INSULIN (NOVOLOG) ASPART 100 UNITS/ML 10ML VIAL ONE (12:15)
--- NOTE | 2017-01-02 13:52 | PN ---
Teaching Attending Note Name of Resident: Johnathan Mayfield ATTENDING PHYSICIAN STATEMENT I saw and evaluated the patient. I reviewed the resident's note and discussed the case with the resident. I agree with the resident's findings and plan as documented. SUBJECTIVE: Has pain in L arm and wants pain medicine although looks comfortable eating lunch , no CP or SOB OBJECTIVE: NAD , AAOx3 CV: RRR, 2/6 SM at RUSB Lungs : bibasilar crackles Ext : L fore arm soft tissue mass , with no erythema or edema. no discharge or skin erythema no edema over legs ASSESSMENT AND PLAN: 66 y/o man with h/o ESRD on HD , DM, anemia, CVA, CAD s/p pacemaker and CABG, CHF, HTN, HLD, DVT, AFib, GI bleed who presented after he missed HD 1- ESRD : received HD yesterday . will cont his routine schedule as out pt 2- L arm pain/mass: last admisison , an aspiration was done to reveal blood ( hematoma ) . case was d/w Dr. Moore, will obtain CT scan of his L arm in preparation for an out pt surgical procedure ( drainage ) on Thursday. the appointment will be made for the patient by dr. Moore. 3- H/o A fib, CHF, CAD , and HTN: cont home meds eliquis and ASA . change dose of eliquis to 2.5 as he has ESRD and weight 53.6 Kg cont other meds 4- DM : cont SSi ( what he takes at home ) dispo : will get CT scan of L arm and dc after that. f/u with Dr. Moore on Thursday for procedure
[2017-01-02] MEDS ORDERED: APIXABAN 2.5 MG TABLET PO SCH (13:58)
[2017-01-02 14:06] VITALS: BP 103/60; PULSE 62; TEMP 97.8
--- NOTE | 2017-01-02 14:38 | DS ---
Physical Exam: SUBJECTIVE: Patient seen and examined at bedside states he nhas pain in his left arm. Appears comfortable OBJECTIVE: Vital Signs Period Temp Pulse Resp BP Sys/Hinds Pulse Ox Last 24 Hr 97.8 F-98.8 F 61-85 18-18 103-178/58-101 98-99 PHYSICAL EXAM GENERAL: Awake, alert, and fully oriented, in no acute distress. EARS, NOSE, THROAT: Moist mucous membranes. LUNGS: Breath sounds equal small amount of bibasilar crackles. No accessory muscle use. HEART: Regular rate and rhythm, normal S1 and S2 ABDOMEN: Soft, nontender, not distended, normoactive bowel sounds MUSCULOSKELETAL: No CVA tenderness. UPPER EXTREMITIES: Left Arm hematoma skin is taut. unchanged LOWER EXTREMITIES: warm, No calf tenderness No peripheral edema. NEUROLOGICAL: Cranial nerves II-XII grossly intact LABS Laboratory Results - last 24 hr 01/01/17 01/01/17 01/01/17 16:28 17:00 20:24 WBC RBC Hgb Hct MCV MCHC RDW Plt Count MPV Sodium Potassium Chloride Carbon Dioxide Anion Gap BUN Creatinine POC Glucometer 165 192 Random Glucose Calcium Creatine Kinase 48 Troponin I 0.05 01/02/17 01/02/17 01/02/17 05:15 08:10 08:10 WBC 4.6 D RBC 3.06 L Hgb 9.0 L Hct 28.3 L MCV 92.5 MCHC 31.9 L RDW 17.6 H Plt Count 125 L MPV 8.8 Sodium 142 Potassium 3.7 Chloride 101 Carbon Dioxide 31 Anion Gap 10 BUN 20 H D Creatinine 3.2 H D POC Glucometer 111 Random Glucose 106 Calcium 8.6 Creatine Kinase 44 Troponin I 0.04 01/02/17 01/02/17 08:10 11:33 WBC RBC Hgb Hct MCV MCHC RDW Plt Count MPV Sodium Potassium Chloride Carbon Dioxide Anion Gap BUN Creatinine POC Glucometer 193 Random Glucose Calcium Creatine Kinase Cancelled Troponin I Cancelled HOSPITAL COURSE: Date of Admission:01/01/17 Date of Discharge: 01/02/17 The patient is a 66 year old male, with a significant past medical history of ESRD(T,Th, Sat; dialysis scheduled for today), DM, anemia, CVA, CAD s/p pacemaker and CABG, CHF, HTN, HLD, DVT(on Eliquis), AFib(on Aspirin), GI bleed, enlarged prostate and anxiety, who presents to the emergency department today with a chief complaint of left arm pain. He has been complaining of this hematoma for about a month now. He was seen here at [facility] multiple times for the same issues and i recently discharged him with surgical follow up. He was seen by surgery Dr. Upton as inpatient on last admission and he drained it with a needle and it was just hematoma no evidence or purulence or infection. He was given follow up 3 times with surgery and never followed up. Apparently he was [facility] have a [facility] for the hematoma and never followed up with surgery.The pain has been getting worse and worse per the patient over the past 2 weeks. came to ED yesterday for same issue given follow up as outpatient with surgery and never scheduled it. He also reported chest pain but denies that he is having chest pain at this time. He missed his dialysis yesterday and was Seen by Dr. Campos who set him up for dialysis and patient was dialyzed without any issues yesterday. On this admission patient was restarted on his home meds. He had a CT scan of the left arm which was reviewed with the radiologist and in comparison to the ultrasound done on last admission it appears that it is hematoma with mostly solid material and it does not look drainable. Patient seen as inpatient by Dr. Clay Moore from Vascular surgery who will see the patient as an outpatient. I schedule an appointment for him this Thursday01/05/17. Minutes to complete discharge: 45 Discharge Summary Reason For Visit: EDEMA L FOREARM,ESRD ON DIALYSIS,CP Current Active Problems Chest pain (Acute) DVT prophylaxis (Acute) Fluid overload (Acute) Anemia (Chronic) Arm mass (Chronic) BPH (benign prostatic hypertrophy) (Chronic) Chronic pain disorder (Chronic) Chronic systolic heart failure (Chronic) Coronary artery disease (Chronic) DVT (deep venous thrombosis) (Chronic) Dependency on pain medication (Chronic) Diabetes (Chronic) Drug-seeking behavior (Chronic) ESRD (end stage renal disease) on dialysis (Chronic) Edema of left forearm (Chronic) Hematoma (Chronic) Hip pain, left (Chronic) History of hemiarthroplasty of left hip (Chronic) Hx of CABG (Chronic) Hyperlipidemia (Chronic) Hypertension (Chronic) ICD (implantable cardioverter-defibrillator) in place (Chronic) Low back pain (Chronic) Noncompliance of patient with renal dialysis (Chronic) PAD (peripheral artery disease) (Chronic) PAF (paroxysmal atrial fibrillation) (Chronic) PVD (peripheral vascular disease) (Chronic) S/P mitral valve repair (Chronic) Status post coronary artery stent placement (Chronic) Status post percutaneous transluminal coronary angioplasty (Chronic) Type 2 diabetes mellitus (Chronic) Unable to ambulate (Chronic) Condition: Guarded - Instructions Diet, Activity, Other Instructions: eat a low sodium low protein low carbohydrate diet please follow up with Dr. Clay Moore this Thursday01/05/17 at 1pm. i already made the appointment for you at 1pm continue all your home medications follow up with Dr. Torres your caddy/caddie supervisor and primary care doctor. if your symptoms worsen go to the nearest emergency room. resume your dialysis schedule do not miss anymore dialysis Referrals: Clay Moore MD [Staff Physician] - 01/05/17 1:00 pm (appointment made ) Disposition: HOME - Home Medications Comprehensive Discharge Medication List: Ambulatory Orders Apixaban [Eliquis -] 2.5 mg PO BID #60 tablet 12/07/16 Aspirin [ASA -] 81 mg PO DAILY #0 tab.chew 12/07/16 Atorvastatin Ca [Lipitor] 20 mg PO HS #0 tablet 12/07/16 Carvedilol [Coreg -] 12.5 mg PO BID #60 tablet 12/07/16 Gabapentin [Neurontin -] 100 mg PO DAILY #0 capsule 12/07/16 Hydralazine HCl [Apresoline -] 50 mg PO BID #0 tablet 12/07/16 Insulin Sliding Scale [Novolog Vial Sliding Scale -] 1 vial SQ ACHS #0 units Isosorbide Mononitrate [Imdur -] 30 mg PO DAILY #0 tab.sr.24h 12/07/16 Pantoprazole Sodium [Protonix -] 40 mg PO BID #0 tablet.ec 12/07/16 Sevelamer Carbonate [Renvela -] 800 mg PO TIDCM #0 tab 12/07/16 Tamsulosin HCl [Flomax -] 0.4 mg PO DAILY@0830 #0 cap.er.24h 12/07/16 Tramadol HCl [Ultram -] 50 mg PO Q6H PRN #20 tablet MDD 4 12/07/16 This patient is new to me today: No Emergency Visit: Yes ED Registration Date: 01/01/17 Care time: The patient presented to the Emergency Department on the above date and was hospitalized for further evaluation of their emergent condition. Critical Care patient: No - Discharge Referral Referred to [facility] Med P.C.: No
--- NOTE | 2017-01-02 16:49 | PN ---
Progress Note (short form) - Note Progress Note: Vascular Surgery Left arm examined. Seems like its hematoma from the CT done this afternoon. No need to drain with now. General surgery placed needle in area and found no pus. Will follow in wound care clinic upon DC Clay Moore DO
[2017-01-03] MEDS ORDERED: EPOETIN ALFA 3,000 UNIT, EPOETIN ALFA 2,000 UNIT IVPUSH ONE (09:00)
[2017-01-03] MEDS ORDERED: EPOETIN ALFA 2,000 UNITS/1 ML VIAL IVPUSH ONE (09:13)
== END 2017-01-02 17:15 | disposition home or self-care (01) | DRG 640 ==
LOC: JER 11:16 → JERBED 13:25 → J4S 15:55
PROVIDERS: ADMIT Internal Medicine; ATTEND Internal Medicine
PROC: 5A1D00Z (ICD-10-PCS; principal; 2017-01-01)
DX: E87.79 Other fluid overload (principal); N18.6 End stage renal disease; I13.2 Hypertensive heart and chronic kidney disease with heart failure and with stage 5 chronic kidney disease, or end stage renal disease; M79.632 Pain in left forearm; S50.12XD Contusion of left forearm, subsequent encounter; R07.89 Other chest pain; I50.9 Heart failure, unspecified; E11.9 Type 2 diabetes mellitus without complications; I25.10 Atherosclerotic heart disease of native coronary artery without angina pectoris; E78.5 Hyperlipidemia, unspecified; N40.0 Benign prostatic hyperplasia without lower urinary tract symptoms; D63.1 Anemia in chronic kidney disease; I48.91 Unspecified atrial fibrillation; F41.8 Other specified anxiety disorders; X58.XXXD Exposure to other specified factors, subsequent encounter; Z86.718 Personal history of other venous thrombosis and embolism; Z86.73 Personal history of transient ischemic attack (TIA), and cerebral infarction without residual deficits; Z95.0 Presence of cardiac pacemaker; Z99.2 Dependence on renal dialysis; Z95.1 Presence of aortocoronary bypass graft; Z95.5 Presence of coronary angioplasty implant and graft; Z89.021 Acquired absence of right finger(s); Z91.15 Patient's noncompliance with renal dialysis
CPT/HCPCS: 36415; 71010-TC; 73090-TC-LT; 73200-TC-RT; 80048; 80053; 82550; 84484; 85025; 85027; 85610; 93005; 93010; 97116-GP; 97161-GP; 99281-25; 99285-25; J0885

== ENCOUNTER 2017-01-03 10:08 | Emergency (ER) | payer MEDICARE, OTHER ==
[2017-01-03 10:21] VITALS: BMI 21.0
[2017-01-03] MEDS ORDERED: morphine CARPU-JECT 4 MG/1 ML DISP.SYRIN IM ONE (10:35)
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
[2017-01-03] MEDS ORDERED: OXYCODONE/APAP 5/325MG COMBO TABLET PO ONE (13:21)
[2017-01-03 14:56] VITALS: BP 140/76; PULSE 76; TEMP 97.9
== END 2017-01-03 15:06 | disposition home or self-care (01) ==
LOC: JER 10:08
DX: S50.12XA Contusion of left forearm, initial encounter (principal); I25.10 Atherosclerotic heart disease of native coronary artery without angina pectoris; I13.2 Hypertensive heart and chronic kidney disease with heart failure and with stage 5 chronic kidney disease, or end stage renal disease; N18.6 End stage renal disease; I50.9 Heart failure, unspecified; Z99.2 Dependence on renal dialysis; Z95.1 Presence of aortocoronary bypass graft; I48.91 Unspecified atrial fibrillation; Z79.82 Long term (current) use of aspirin; Z95.5 Presence of coronary angioplasty implant and graft; E11.9 Type 2 diabetes mellitus without complications; Z79.4 Long term (current) use of insulin; N40.0 Benign prostatic hyperplasia without lower urinary tract symptoms; Z86.73 Personal history of transient ischemic attack (TIA), and cerebral infarction without residual deficits; Z86.718 Personal history of other venous thrombosis and embolism; Z79.01 Long term (current) use of anticoagulants; Z95.0 Presence of cardiac pacemaker
CPT/HCPCS: 99283-25

== ENCOUNTER → 2017-01-10 | Emergency (ER) | payer MEDICARE, OTHER ==
[~2017-01-10] MED LIST: FUROSEMIDE 40 MG/4 ML INJECTABLE VIAL ONE; traMADol HCL 50 MG TABLET ONE
[2017-01-10 08:23] VITALS: BP 138/62; PULSE 62; TEMP 97.8; BMI 26.5
[2017-01-10 10:44] LABS: BASOPHIL 3.2 % (0-2.0); EOSINOPHIL 6.3 % (0-4.5); MCH 29.6 pg (25.7-33.7); MEAN CELL VOLUME 92.7 fl (80-96); MEAN PLT VOLUME 8.8 fl (7.5-11.1); NEUTROPHILS 64.2 % (42.8-82.8); PLATELET COUNT 132 K/MM3 (134-434); RDW 17.2 % (11.9-15.9); WHITE BLOOD COUNT 4.8 K/mm3 (4.0-10.0)
[2017-01-10 10:55] LABS: INR 1.12 (0.82-1.09); PROTHROMBIN TIME (PATIENT) 12.3 SEC (9.98-11.88)
[2017-01-10 11:25] LABS: BILIRUBIN,TOTAL 0.4 mg/dL (0.2-1.0); TOT PROT 6.8 g/dl (6.4-8.2); TROPONIN I 0.03 ng/ml (0.00-0.05)
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
--- NOTE | 2017-01-10 12:18 | EKG ---
Test Reason : Blood Pressure : / mmHG Vent. Rate : 060 BPM Atrial Rate : 125 BPM P-R Int : 000 ms QRS Dur : 160 ms QT Int : 500 ms P-R-T Axes : 000 047 -64 degrees QTc Int : 500 ms AV dual-paced rhythm Biventricular pacemaker detected ABNORMAL ECG WHEN COMPARED WITH ECG OF 01-JAN-2017 12:04, PREMATURE VENTRICULAR COMPLEXES ARE NO LONGER PRESENT VENT. RATE HAS DECREASED BY 14 BPM Confirmed by MATTEO FLANNERY, JULIA ([id number]) on 01/10/2017 12:18:08 PM Referred By: Confirmed By:JULIA FELIPE MD
== END | disposition home or self-care (01) ==
LOC: JER 08:09
DX: R22.32 Localized swelling, mass and lump, left upper limb (principal); R07.89 Other chest pain; Z86.718 Personal history of other venous thrombosis and embolism; Z79.01 Long term (current) use of anticoagulants; Z91.14 Patient's other noncompliance with medication regimen; I25.10 Atherosclerotic heart disease of native coronary artery without angina pectoris; I13.2 Hypertensive heart and chronic kidney disease with heart failure and with stage 5 chronic kidney disease, or end stage renal disease; N18.6 End stage renal disease; I50.9 Heart failure, unspecified; Z99.2 Dependence on renal dialysis; Z95.1 Presence of aortocoronary bypass graft; Z95.5 Presence of coronary angioplasty implant and graft; Z95.0 Presence of cardiac pacemaker; E11.9 Type 2 diabetes mellitus without complications; Z79.4 Long term (current) use of insulin; E78.00 Pure hypercholesterolemia, unspecified
CPT/HCPCS: 36415; 80053; 82550; 84484; 85025; 85610; 93005; 93010; 93971; 99283-25

== ENCOUNTER 2017-01-12 06:37 | Emergency (ER) | payer MEDICARE, OTHER ==
[2017-01-12 07:13] VITALS: BMI 21.0
[2017-01-12] MEDS ORDERED: traMADol HCL 50 MG TABLET PO ONE (08:10)
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
[2017-01-12 10:23] VITALS: BP 149/80; PULSE 81; TEMP 98.1
== END 2017-01-12 10:23 | disposition home or self-care (01) ==
LOC: JER 06:37
DX: M54.5 Low back pain (principal); I25.10 Atherosclerotic heart disease of native coronary artery without angina pectoris; I13.2 Hypertensive heart and chronic kidney disease with heart failure and with stage 5 chronic kidney disease, or end stage renal disease; N18.6 End stage renal disease; I50.9 Heart failure, unspecified; Z99.2 Dependence on renal dialysis; Z95.1 Presence of aortocoronary bypass graft; Z95.5 Presence of coronary angioplasty implant and graft; I48.91 Unspecified atrial fibrillation; Z79.01 Long term (current) use of anticoagulants; Z95.0 Presence of cardiac pacemaker; E11.9 Type 2 diabetes mellitus without complications; Z79.4 Long term (current) use of insulin; N40.0 Benign prostatic hyperplasia without lower urinary tract symptoms; F41.8 Other specified anxiety disorders
CPT/HCPCS: 99281-25

== ENCOUNTER 2017-01-15 03:47 | Observation (INO) | payer MEDICARE, OTHER ==
[2017-01-15 04:06] VITALS: BMI 21.0
[2017-01-15] MEDS ORDERED: HYDROmorphone HCL CARPU-JECT 1 MG/1 ML DISP.SYRIN IVPUSH ONE ×2 (04:18→07:24)
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
[2017-01-15] MEDS ORDERED: HYDROmorphone HCL CARPU-JECT 1 MG/1 ML DISP.SYRIN IM STA (04:52)
[2017-01-15 06:48] LABS: CALCIUM 8.2 mg/dL (8.5-10.1); CREATININE 6.4 mg/dL (0.7-1.3)
[2017-01-15 06:51] LABS: BILIRUBIN,TOTAL 0.4 mg/dL (0.2-1.0); TOT PROT 6.9 g/dl (6.4-8.2); TROPONIN I 0.04 ng/ml (0.00-0.05)
[2017-01-15 06:56] LABS: BASOPHIL 2.1 % (0-2.0); EOSINOPHIL 8.3 % (0-4.5); MCH 29.9 pg (25.7-33.7); MCHC 32.2 g/dl (32.0-35.9); MEAN CELL VOLUME 92.7 fl (80-96); MEAN PLT VOLUME 8.6 fl (7.5-11.1); NEUTROPHILS 65.6 % (42.8-82.8); PLATELET COUNT 146 K/MM3 (134-434); RDW 18.1 % (11.9-15.9)
--- NOTE | 2017-01-15 07:02 | PDOC ---
*Physical Exam - Vital Signs Last Vital Signs Temp Pulse Resp BP Pulse Ox 98.0 F 70 20 166/93 98 01/15/17 04:04 01/15/17 04:04 01/15/17 04:04 01/15/17 04:04 01/15/17 04:04 - Physical Exam Comments: 01/15/17 07:01 Sign-out received from outgoing Emergency Physician Pt interviewed and examined He is complaining of intermittent chest pain, that he states is different from any chest pain he has experienced in the past. It is substernal. It does not radiate. It is moderate to severe. It is sometimes associated with nausea. He does not have it right now. He also reports separate pain at the dialysis catheter site. Labs pending I am adding a chest x-ray 01/15/17 07:11 Labs noted Given his paced rhythm, and his report of intermittent chest pain that is different in quality from his previous episodes, I feel that he will require at least a 2 troponin rule out. We'll place on observation. Clinical impression: Chest pain Possible acute coronary syndrome Case discussed in detail with admitting provider including history, physical exam and ancillary studies. Admitting physician has assumed care for the patient, will follow all pending diagnostics and will complete the evaluation and treatment. 01/15/17 07:32 ED Treatment Course - LABORATORY CBC & Chemistry Diagram: 01/15/17 05:10 01/15/17 05:10 - ADDITIONAL ORDERS Additional order review: Laboratory Results 01/15/17 05:10 Sodium 140 Potassium 4.5 Chloride 102 Carbon Dioxide 26 Anion Gap 12 BUN 39 H Creatinine 6.4 H Creat Clearance w eGFR 8.75 Random Glucose 91 Calcium 8.2 L Total Bilirubin 0.4 AST 21 ALT 10 L D Alkaline Phosphatase 147 H Creatine Kinase 110 Troponin I 0.04 D Total Protein 6.9 Albumin 3.0 L 01/15/17 05:10 RBC 3.12 L MCV 92.7 MCHC 32.2 RDW 18.1 H MPV 8.6 Neutrophils % 65.6 Lymphocytes % 11.9 Monocytes % 12.1 H Eosinophils % 8.3 H Basophils % 2.1 H - RADIOLOGY Radiology Studies Ordered: Category Date Time Status CHEST X-RAY PORTABLE* [RAD] Stat Radiology 01/15/17 07:00 Ordered - Medications Given in the ED: ED Medications Discontinued Medications Generic Name Dose Route Start Last Admin Trade Name Freq PRN Reason Stop Dose Admin Hydromorphone HCl 1 mg 01/15/17 04:18 01/15/17 05:16 Dilaudid Injection - IVPUSH 01/15/17 04:19 Not Given ONCE ONE Hydromorphone HCl 1 mg 01/15/17 04:52 01/15/17 05:14 Dilaudid Injection - IM 01/15/17 04:53 1 mg ONCE STA Administration *DC/Admit/Observation/Transfer Diagnosis at time of Disposition: Chest pain - Discharge Dispostion Admit: Yes
[2017-01-15] MEDS ORDERED: PANTOPRAZOLE 40 MG TABLET (FP) PO ONE (07:59)
[2017-01-15] MEDS ORDERED: HYDROmorphone HCL CARPU-JECT 1 MG/1 ML DISP.SYRIN IM ONE (08:00)
[2017-01-15 08:18] VITALS: TEMP 97.9
--- NOTE | 2017-01-15 09:09 | HP ---
CHIEF COMPLAINT: PCP:Dr Hung HISTORY OF PRESENT ILLNESS: 66 y/o male presents to the emergency department complaining of chest pain aat the site of dialysis permacath. Pain not quantified but described as uncomfortable and then patient complains of catheter being too long. No reported SOB and also complains of gastritis. Denies trauma to area, fever, chills, diaphoresis, palpitations, nausea, vomiting or other complaints ER course was notable for: (1)Troponin (2) Vascular consult (3) Recent Travel: PAST MEDICAL HISTORY:ESRD (HD T, Th, and Sat.), diabetes, anemia, CVA, CAD s/p pacemaker s/p CABG, CHF, hypertension, hyperlipidemia, DVT, and GI bleed PAST SURGICAL HISTORY: Catheter and AV access Social History: Smoking History Smoking:Former smoker Alcohol:no Drugs: no Lives with Family History: Allergies No Known Drug Allergies Allergy (Verified 01/15/17 04:03) HOME MEDICATIONS: Home Medications Medication Instructions Recorded Apixaban [Eliquis -] 2.5 mg PO BID #60 tablet 12/07/16 Aspirin [ASA -] 81 mg PO DAILY #0 tab.chew 12/07/16 Atorvastatin Ca [Lipitor] 20 mg PO HS #0 tablet 12/07/16 Carvedilol [Coreg -] 12.5 mg PO BID #60 tablet 12/07/16 Gabapentin [Neurontin -] 100 mg PO DAILY #0 capsule 12/07/16 Hydralazine HCl [Apresoline -] 50 mg PO BID #0 tablet 12/07/16 Insulin Sliding Scale [Novolog 1 vial SQ ACHS #0 units 12/07/16 Vial Sliding Scale -] Isosorbide Mononitrate [Imdur -] 30 mg PO DAILY #0 tab.sr.24h 12/07/16 Pantoprazole Sodium [Protonix -] 40 mg PO BID #0 tablet.ec 12/07/16 Sevelamer Carbonate [Renvela -] 800 mg PO TIDCM #0 tab 12/07/16 Tamsulosin HCl [Flomax -] 0.4 mg PO DAILY@0830 #0 cap.er.24h 12/07/16 Tramadol HCl [Ultram -] 50 mg PO Q6H PRN #20 tablet MDD 4 12/07/16 Oxycodone HCl/Acetaminophen 1 combo PO Q6H PRN #14 tablet MDD 6 01/03/17 [Percocet 5-325 mg Tablet] REVIEW OF SYSTEMS CONSTITUTIONAL: Absent: fever, chills, diaphoresis, generalized weakness, malaise, loss of appetite, weight change HEENT: Absent: rhinorrhea, nasal congestion, throat pain, throat swelling, difficulty swallowing, mouth swelling, ear pain, eye pain, visual changes CARDIOVASCULAR: chest pain, Absent: syncope, palpitations, irregular heart rate, lightheadedness, peripheral edema RESPIRATORY: Absent: cough, shortness of breath, dyspnea with exertion, orthopnea, wheezing, stridor, hemoptysis GASTROINTESTINAL: Absent: abdominal pain, abdominal distension, nausea, vomiting, diarrhea, constipation, melena, hematochezia GENITOURINARY: Absent: dysuria, frequency, urgency, hesitancy, hematuria, flank pain, genital pain MUSCULOSKELETAL: left arm forearm swollen. Absent: myalgia, arthralgia, joint swelling, back pain, neck pain SKIN: Absent: rash, itching, pallor HEMATOLOGIC/IMMUNOLOGIC: Absent: easy bleeding, easy bruising, lymphadenopathy, frequent infections ENDOCRINE: Absent: unexplained weight gain, unexplained weight loss, heat intolerance, cold intolerance NEUROLOGIC: Absent: headache, focal weakness or paresthesias, dizziness, unsteady gait, seizure, mental status changes, bladder or bowel incontinence PSYCHIATRIC: Absent: anxiety, depression, suicidal or homicidal ideation, hallucinations. PHYSICAL EXAMINATION Vital Signs - 24 hr 01/15/17 08:13 Temperature 97.9 F Pulse Rate [ 72 Apical] Respiratory 18 Rate Blood Pressure 157/74 [Right Arm] O2 Sat by Pulse 98 Oximetry (%) GENERAL: Awake, alert, and fully oriented, in no acute distress. HEAD: Normal with no signs of trauma. EYES: Pupils equal, round and reactive to light, extraocular movements intact, sclera anicteric, conjunctiva clear. No lid lag. EARS, NOSE, THROAT: Ears normal, nares patent, oropharynx clear without exudates. Moist mucous membranes. NECK: Normal range of motion, supple without lymphadenopathy, JVD, or masses. LUNGS: Breath sounds equal, clear to auscultation bilaterally. No wheezes, and no crackles. No accessory muscle use. HEART: Regular rate and rhythm, normal S1 and S2 without murmur, rub or gallop. Permacath inplace with no signs of tenderness or erythema at infection sight. ABDOMEN: Soft, nontender, not distended, normoactive bowel sounds, no guarding, no rebound, no masses. No hepatomegaly or splenomegaly. MUSCULOSKELETAL: Normal range of motion at all joints. No bony deformities or tenderness. No CVA tenderness. UPPER EXTREMITIES: 2+ pulses, warm, well-perfused. No cyanosis. No clubbing. Left forearm peripheral edema. LOWER EXTREMITIES: 2+ pulses, warm, well-perfused. No calf tenderness. No peripheral edema. NEUROLOGICAL: Cranial nerves II-XII intact. Normal speech. Normal gait. PSYCHIATRIC: Cooperative. Good eye contact. Appropriate mood and affect. SKIN: Warm, dry, normal turgor, no rashes or lesions noted, normal capillary refill. ASSESSMENT/PLAN: Admitted for observation to Atypical chest pain, r/o ACS, no signs of infection and dialysis catheter with no blockage as sight was utilized recently without any reported complication. Possible uremic gastritis- Protonix 40 mg stat Serial troponin and Vascular consult. Problem List - Problem (1) Atypical chest pain Code(s): R07.89 - OTHER CHEST PAIN (2) ESRD (end stage renal disease) on dialysis Code(s): N18.6 - END STAGE RENAL DISEASE Z99.2 - DEPENDENCE ON RENAL DIALYSIS Visit type - Emergency Visit Emergency Visit: Yes ED Registration Date: 01/15/17 Care time: The patient presented to the Emergency Department on the above date and was hospitalized for further evaluation of their emergent condition. - New Patient This patient is new to me today: Yes Date on this admission: 01/15/17 - Critical Care Critical Care patient: No
[2017-01-15] MEDS ORDERED: traMADol HCL 50 MG TABLET PO PRN (09:11)
[2017-01-15] MEDS ORDERED: OXYCODONE/APAP 5/325MG COMBO TABLET PO PRN (09:11)
[2017-01-15] MEDS ORDERED: GABAPENTIN 100 MG CAPSULE (FP) PO SCH (10:00)
[2017-01-15] MEDS ORDERED: CARVEDILOL 12.5 MG TABLET (FP) PO SCH (10:00)
[2017-01-15] MEDS ORDERED: ISOSORBIDE MONONITRATE 30 MG TAB.SR.24H (FP) PO SCH (10:00)
[2017-01-15] MEDS ORDERED: PANTOPRAZOLE 40 MG TABLET (FP) PO SCH (10:00)
[2017-01-15] MEDS ORDERED: APIXABAN 2.5 MG TABLET PO SCH (10:00)
[2017-01-15] MEDS ORDERED: hydrALAZINE HCL 25 MG TABLET (FP) PO SCH (10:00)
[2017-01-15] MEDS ORDERED: ASPIRIN 81 MG CHEWABLE TABLETS PO SCH (10:00)
[2017-01-15] MEDS ORDERED: ACETAMINOPHEN 325 MG TABLET (FP) PO PRN (10:12)
[2017-01-15] MEDS ORDERED: oxyCODONE HCL 5 MG TABLET PO PRN (10:12)
[2017-01-15 10:46] VITALS: BP 148/90; PULSE 75
--- NOTE | 2017-01-15 10:51 | DS ---
[id number] Vital Signs Period Temp Pulse Resp BP Sys/Hinds Pulse Ox Last 24 Hr 97.9 F 72 18 157/74 98 PHYSICAL EXAM GENERAL: The patient is awake, alert, and fully oriented, in no acute distress. HEAD: Normal with no signs of trauma. EYES: PERRL, extraocular movements intact, sclera anicteric, conjunctiva clear. ENT: Ears normal, nares patent, oropharynx clear without exudates, moist mucous membranes. NECK: Trachea midline, full range of motion, supple. LUNGS: Breath sounds equal, clear to auscultation bilaterally, no wheezes, no crackles, no accessory muscle use. HEART: Regular rate and rhythm, S1, S2 without murmur, rub or gallop. Permacath in anterior thorax, no erythema or drainage. ABDOMEN: Soft, nontender, nondistended, normoactive bowel sounds, no guarding, no rebound, no hepatosplenomegaly, no masses. EXTREMITIES: 2+ pulses, warm, well-perfused, left arm edema, soft and nontender to palpation. NEUROLOGICAL: Cranial nerves II through XII grossly intact. Normal speech, gait not observed. PSYCH: Normal mood, normal affect. SKIN: Warm, severely dry, normal turgor, no rashes or lesions noted. LABS Laboratory Results - last 24 hr 01/15/17 09:35 Troponin I 0.05 HOSPITAL COURSE: Admitted for observation to r/o ACS, pain is atypical and secondary to discomfort of foreign body the catheter. Troponins trended and negative. Vascular consult called and no need for intervention. [facility] dialysis contacted and patient with appointment for dialysis today moved to 12 pm. Continue home medication. Patient at high risk for returning to ED and may benefit from frequent follow up with PMD. Date of Admission:01/15/17 Date of Discharge: 01/15/17 Minutes to complete discharge: 25 Discharge Summary Reason For Visit: CHEST PAIN Current Active Problems Atypical chest pain (Acute) Chest pain (Acute) DVT prophylaxis (Acute) Fluid overload (Acute) Anemia (Chronic) BPH (benign prostatic hypertrophy) (Chronic) Chronic pain disorder (Chronic) Chronic systolic heart failure (Chronic) Coronary artery disease (Chronic) DVT (deep venous thrombosis) (Chronic) Dependency on pain medication (Chronic) Diabetes (Chronic) Drug-seeking behavior (Chronic) Hip pain, left (Chronic) History of hemiarthroplasty of left hip (Chronic) Hx of CABG (Chronic) Hyperlipidemia (Chronic) Hypertension (Chronic) ICD (implantable cardioverter-defibrillator) in place (Chronic) Noncompliance of patient with renal dialysis (Chronic) PAD (peripheral artery disease) (Chronic) PAF (paroxysmal atrial fibrillation) (Chronic) PVD (peripheral vascular disease) (Chronic) S/P mitral valve repair (Chronic) Status post coronary artery stent placement (Chronic) Status post percutaneous transluminal coronary angioplasty (Chronic) Type 2 diabetes mellitus (Chronic) Unable to ambulate (Chronic) Condition: Fair - Instructions Diet, Activity, Other Instructions: Renal diet. adhere to dialysis and follow up with PMD frequently Referrals: [facility] [[facility]] - 01/15/17 12:00 pm (For dialysis) Disposition: HOME - Home Medications Comprehensive Discharge Medication List: Ambulatory Orders Apixaban [Eliquis -] 2.5 mg PO BID #60 tablet 12/07/16 Aspirin [ASA -] 81 mg PO DAILY #0 tab.chew 12/07/16 Atorvastatin Ca [Lipitor] 20 mg PO HS #0 tablet 12/07/16 Carvedilol [Coreg -] 12.5 mg PO BID #60 tablet 12/07/16 Gabapentin [Neurontin -] 100 mg PO DAILY #0 capsule 12/07/16 Hydralazine HCl [Apresoline -] 50 mg PO BID #0 tablet 12/07/16 Insulin Sliding Scale [Novolog Vial Sliding Scale -] 1 vial SQ ACHS #0 units Isosorbide Mononitrate [Imdur -] 30 mg PO DAILY #0 tab.sr.24h 12/07/16 Pantoprazole Sodium [Protonix -] 40 mg PO BID #0 tablet.ec 12/07/16 Sevelamer Carbonate [Renvela -] 800 mg PO TIDCM #0 tab 12/07/16 Tamsulosin HCl [Flomax -] 0.4 mg PO DAILY@0830 #0 cap.er.24h 12/07/16 Tramadol HCl [Ultram -] 50 mg PO Q6H PRN #20 tablet MDD 4 12/07/16 Oxycodone HCl/Acetaminophen [Percocet 5-325 mg Tablet] 1 combo PO Q6H PRN #14 tablet MDD 6 01/03/17 Problem List - Problems (1) Atypical chest pain Code(s): R07.89 - OTHER CHEST PAIN (2) ESRD (end stage renal disease) on dialysis Code(s): N18.6 - END STAGE RENAL DISEASE Z99.2 - DEPENDENCE ON RENAL DIALYSIS This patient is new to me today: Yes Date on this admission: 01/30/17 Emergency Visit: Yes ED Registration Date: 01/15/17 Care time: The patient presented to the Emergency Department on the above date and was hospitalized for further evaluation of their emergent condition. Critical Care patient: No - Discharge Referral Referred to [facility] No Quality Measures-Exclusions - Heart Failure Reason LVF assessment not done: Prior echocardiogram done
[2017-01-15] MEDS ORDERED: INSULIN SLIDING SCALE (NOVOLOG) 1 VIAL SQ SCH (11:00)
[2017-01-15] MEDS ORDERED: SEVELAMER CARBONATE 800 MG TAB (FP) PO SCH (12:00)
--- NOTE | 2017-01-15 16:13 | EKG ---
Test Reason : Blood Pressure : / mmHG Vent. Rate : 071 BPM Atrial Rate : 069 BPM P-R Int : 000 ms QRS Dur : 160 ms QT Int : 462 ms P-R-T Axes : 000 089 -13 degrees QTc Int : 502 ms Ventricular-paced rhythm Biventricular pacemaker detected ABNORMAL ECG WHEN COMPARED WITH ECG OF 10-JAN-2017 08:28, VENT. RATE HAS INCREASED BY 11 BPM Confirmed by JULIA FELIPE MD ([id number]) on 01/15/2017 4:13:11 PM Referred By: Confirmed By:JULIA FELIPE MD
[2017-01-15] MEDS ORDERED: ATORVASTATIN CA 20 MG TABLET (FP) PO SCH (22:00)
[2017-01-16] MEDS ORDERED: TAMSULOSIN HCL 0.4 MG CAP.ER.24H (FP) PO SCH (08:30)
== END 2017-01-15 12:01 | disposition home or self-care (01) ==
LOC: JER 03:47 → JERBED 07:13
PROVIDERS: ADMIT Internal Medicine; ATTEND Internal Medicine
PROC: 3E033NZ Introduction of Analgesics, Hypnotics, Sedatives into Peripheral Vein, Percutaneous Approach (ICD-10-PCS; principal; 2017-01-15)
PROC: 3E013VG Introduction of Insulin into Subcutaneous Tissue, Percutaneous Approach (ICD-10-PCS; 2017-01-15)
PROC: 3E033GC Introduction of Other Therapeutic Substance into Peripheral Vein, Percutaneous Approach (ICD-10-PCS; 2017-01-15)
DX: R07.89 Other chest pain (principal); I12.0 Hypertensive chronic kidney disease with stage 5 chronic kidney disease or end stage renal disease; E11.22 Type 2 diabetes mellitus with diabetic chronic kidney disease; N18.6 End stage renal disease; Z99.2 Dependence on renal dialysis; Z79.4 Long term (current) use of insulin; Z86.73 Personal history of transient ischemic attack (TIA), and cerebral infarction without residual deficits; I25.10 Atherosclerotic heart disease of native coronary artery without angina pectoris; I50.9 Heart failure, unspecified; Z95.1 Presence of aortocoronary bypass graft; Z95.0 Presence of cardiac pacemaker; E78.5 Hyperlipidemia, unspecified; Z86.718 Personal history of other venous thrombosis and embolism; Z87.19 Personal history of other diseases of the digestive system; D64.9 Anemia, unspecified; Z85.9 Personal history of malignant neoplasm, unspecified; F41.9 Anxiety disorder, unspecified; Z87.891 Personal history of nicotine dependence
CPT/HCPCS: 36415; 71010-TC; 80053; 82550; 84484; 85025; 93005; 93010; 99284-25; G0378

== ENCOUNTER 2017-01-18 13:44 | Emergency (ER) | payer MEDICARE, OTHER ==
[2017-01-18 14:13] VITALS: TEMP 97.3; BMI 21.0
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
[2017-01-18] MEDS ORDERED: HYDROmorphone HCL CARPU-JECT 1 MG/1 ML DISP.SYRIN IM PRN (14:37)
--- NOTE | 2017-01-18 18:47 | PDOC ---
Attending Attestation - Resident Resident Name: Xavi Damon - ED Attending Attestation I have performed the following: I have examined & evaluated the patient, The case was reviewed & discussed with the resident, I agree w/resident's findings & plan - HPI HPI: 66y M hx of ESRD (T, Th, Sat), DM, cva, cad s/p cabg, chf s/p PM, htn, hl, dvt on eliquis presents s/p fall. pt had mechanical fall while walking in his house and fell, hit his knee and head on the floor. denies loc, n/v, visio nchanges, numbness/tingling/weakness. pts exam as noted. The pts CT head is negative for acute process. will d/c the pt home to fu with his pmd. - Physicial Exam PE: 01/22/17 08:23 GENERAL: The patient is awake, alert, and fully oriented, Nontoxic - in no acute distress, anasarcic HEAD: Normocephalic, contusion over left eye/cheek without crepitus EYES: extraocular movements intact, sclera anicteric, conjunctiva clear. ENT: Normal voice, Moist mucous membranes. NECK: Normal range of motion, supple, no midline tenderness in cervical/ thoracic spine LUNGS: Breath sounds equal, clear to auscultation bilaterally. No wheezes, no rhonchi, no rales. HEART: Regular rate and rhythm, normal S1 and S2 without murmur, rub or gallop. ABDOMEN: Soft, nontender, EXTREMITIES: abrasio nover left wrist without significant tenderness, normal ROM , normal ROM of upper/lower extermities, +sewlling over the proximal L forwarm ( chronic hematoma) NEUROLOGICAL: No facial assymetry, Normal speech, moving all 4 extremities spontaneously and symmetrically. PSYCH: Normal mood, normal affect. SKIN: Warm, Dry, normal turgor, - Medical Decision Making 01/22/17 08:25 see above
[2017-01-18 21:48] VITALS: BP 166/79; PULSE 69
--- NOTE | 2017-01-21 14:11 | EKG ---
Test Reason : Blood Pressure : / mmHG Vent. Rate : 167 BPM Atrial Rate : 051 BPM P-R Int : 000 ms QRS Dur : 020 ms QT Int : 178 ms P-R-T Axes : 000 000 -08 degrees QTc Int : 296 ms Ventricular-paced rhythm WITH FREQUENT and consecutive supraventricular complexes AND PREMATURE SUPRAVENTRICULAR COMPLEXES ABNORMAL ECG WHEN COMPARED WITH ECG OF 15-JAN-2017 03:57, PREMATURE SUPRAVENTRICULAR COMPLEXES ARE NOW PRESENT VENT. RATE HAS INCREASED BY 96 BPM Confirmed by ТАТЬЯНА DAVIS MD ([id number]) on 01/21/2017 2:11:43 PM Referred By: Confirmed By:ТАТЬЯНА DAVIS MD
== END 2017-01-18 20:30 | disposition home or self-care (01) ==
LOC: JER 13:44
PROC: 3E023NZ Introduction of Analgesics, Hypnotics, Sedatives into Muscle, Percutaneous Approach (ICD-10-PCS; principal; 2017-01-18)
DX: S09.8XXA Other specified injuries of head, initial encounter (principal); W18.39XA Other fall on same level, initial encounter; Y93.89 Activity, other specified; Y92.030 Kitchen in apartment as the place of occurrence of the external cause; I25.10 Atherosclerotic heart disease of native coronary artery without angina pectoris; I13.2 Hypertensive heart and chronic kidney disease with heart failure and with stage 5 chronic kidney disease, or end stage renal disease; N18.6 End stage renal disease; I50.9 Heart failure, unspecified; Z99.2 Dependence on renal dialysis; Z95.1 Presence of aortocoronary bypass graft; E78.00 Pure hypercholesterolemia, unspecified; I48.91 Unspecified atrial fibrillation; Z79.01 Long term (current) use of anticoagulants; Z79.82 Long term (current) use of aspirin; N40.0 Benign prostatic hyperplasia without lower urinary tract symptoms; Z86.73 Personal history of transient ischemic attack (TIA), and cerebral infarction without residual deficits; Z86.718 Personal history of other venous thrombosis and embolism; F41.9 Anxiety disorder, unspecified; Z95.0 Presence of cardiac pacemaker
CPT/HCPCS: 70450-TC; 93005; 93010; 96372; 99282-25

== ENCOUNTER 2017-01-20 23:23 | Emergency (ER) | payer MEDICARE, OTHER ==
[2017-01-21] MEDS ORDERED: ACETAMINOPHEN 325 MG TABLET (FP) PO ONE (00:28)
[2017-01-21 00:49] VITALS: BP 152/79; PULSE 69; TEMP 98.4; BMI 21.9
[2017-01-21] MEDS ORDERED: traMADol HCL 50 MG TABLET ONE (01:24)
[2017-01-21] MEDS ORDERED: ACETAMINOPHEN 325 MG TABLET (FP) ONE (01:24)
[2017-01-21] MEDS ORDERED: traMADol HCL 50 MG TABLET PO ONE (01:29)
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
== END 2017-01-21 02:47 | disposition home or self-care (01) ==
LOC: JER 23:23
DX: M79.605 Pain in left leg (principal); M79.604 Pain in right leg; I25.10 Atherosclerotic heart disease of native coronary artery without angina pectoris; I13.2 Hypertensive heart and chronic kidney disease with heart failure and with stage 5 chronic kidney disease, or end stage renal disease; N18.6 End stage renal disease; I50.9 Heart failure, unspecified; Z99.2 Dependence on renal dialysis; Z95.1 Presence of aortocoronary bypass graft; Z95.5 Presence of coronary angioplasty implant and graft; E11.9 Type 2 diabetes mellitus without complications; Z79.4 Long term (current) use of insulin; E78.00 Pure hypercholesterolemia, unspecified; D64.9 Anemia, unspecified; Z87.891 Personal history of nicotine dependence; Z86.73 Personal history of transient ischemic attack (TIA), and cerebral infarction without residual deficits; Z86.718 Personal history of other venous thrombosis and embolism; Z79.01 Long term (current) use of anticoagulants
CPT/HCPCS: 99281-25

== ENCOUNTER 2017-01-31 12:32 | Emergency (ER) | payer MEDICARE, OTHER ==
[2017-01-31 12:41] VITALS: BMI 19.2
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
[2017-01-31] MEDS ORDERED: traMADol HCL 50 MG TABLET PO ONE (15:28)
[2017-01-31 16:22] LABS: BASOPHIL 1.4 % (0-2.0); EOSINOPHIL 5.4 % (0-4.5); MCH 29.7 pg (25.7-33.7); MCHC 32.3 g/dl (32.0-35.9); MEAN CELL VOLUME 91.7 fl (80-96); MEAN PLT VOLUME 9.3 fl (7.5-11.1); NEUTROPHILS 68.6 % (42.8-82.8); PLATELET COUNT 131 K/MM3 (134-434); RDW 17.5 % (11.9-15.9); WHITE BLOOD COUNT 5.2 K/mm3 (4.0-10.0)
[2017-01-31 16:37] LABS: INR 1.11 (0.82-1.09); PROTHROMBIN TIME (PATIENT) 12.2 SEC (9.98-11.88)
[2017-01-31 17:23] LABS: ALBUMIN 3.2 g/dl (3.4-5.0); BILIRUBIN,TOTAL 0.3 mg/dL (0.2-1.0); CALCIUM 8.9 mg/dL (8.5-10.1); COCKROFT - GAULT 9.11; CREATININE 5.3 mg/dL (0.7-1.3); TOT PROT 7.3 g/dl (6.4-8.2)
[2017-01-31] MEDS ORDERED: OXYCODONE/APAP 5/325MG COMBO TABLET PO ONE (21:32)
[2017-01-31 23:50] VITALS: BP 121/91; PULSE 79; TEMP 97.8
== END 2017-01-31 23:49 | disposition home or self-care (01) ==
LOC: JER 12:32
DX: R22.32 Localized swelling, mass and lump, left upper limb (principal); I25.10 Atherosclerotic heart disease of native coronary artery without angina pectoris; I13.2 Hypertensive heart and chronic kidney disease with heart failure and with stage 5 chronic kidney disease, or end stage renal disease; N18.6 End stage renal disease; I50.9 Heart failure, unspecified; Z99.2 Dependence on renal dialysis; Z95.1 Presence of aortocoronary bypass graft; Z95.5 Presence of coronary angioplasty implant and graft; I48.91 Unspecified atrial fibrillation; Z79.01 Long term (current) use of anticoagulants; E78.5 Hyperlipidemia, unspecified; Z86.73 Personal history of transient ischemic attack (TIA), and cerebral infarction without residual deficits; Z86.718 Personal history of other venous thrombosis and embolism; D64.9 Anemia, unspecified
CPT/HCPCS: 36415; 73070-TC-LT; 73130-TC-RT; 80053; 85025; 85610; 87040; 93971; 99285-25

== ENCOUNTER 2017-02-01 10:18 | Emergency (ER) | payer MEDICARE, OTHER ==
[2017-02-01 10:26] VITALS: BMI 21.0
[2017-02-01] MEDS ORDERED: diphenhydrAMINE HCL 25 MG CAPSULE (FP) PO ONE ×2 (11:16→11:23)
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
[2017-02-01 14:58] VITALS: BP 161/74; PULSE 60; TEMP 97.9
== END 2017-02-01 15:32 | disposition home or self-care (01) ==
LOC: JER 10:18
DX: T78.40XA Allergy, unspecified, initial encounter (principal); H05.221 Edema of right orbit; R22.32 Localized swelling, mass and lump, left upper limb; D64.9 Anemia, unspecified; E78.00 Pure hypercholesterolemia, unspecified; E11.9 Type 2 diabetes mellitus without complications; Z79.4 Long term (current) use of insulin; I25.10 Atherosclerotic heart disease of native coronary artery without angina pectoris; I13.2 Hypertensive heart and chronic kidney disease with heart failure and with stage 5 chronic kidney disease, or end stage renal disease; N18.6 End stage renal disease; I50.9 Heart failure, unspecified; Z99.2 Dependence on renal dialysis; Z95.1 Presence of aortocoronary bypass graft; Z95.5 Presence of coronary angioplasty implant and graft; Z86.73 Personal history of transient ischemic attack (TIA), and cerebral infarction without residual deficits; Z86.718 Personal history of other venous thrombosis and embolism; Z79.01 Long term (current) use of anticoagulants; Z95.0 Presence of cardiac pacemaker
CPT/HCPCS: 99284-25

== ENCOUNTER 2017-02-09 23:57 | Emergency (ER) | payer OTHER ==
[2017-02-10 00:31] VITALS: BMI 27.4
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
[2017-02-10] MEDS ORDERED: HYDROmorphone HCL CARPU-JECT 2 MG/1 ML DISP.SYRIN IM STA (01:09)
[2017-02-10] MEDS ORDERED: HYDROmorphone HCL CARPU-JECT 2 MG/1 ML DISP.SYRIN ONE (01:18)
[2017-02-10 04:05] LABS: BASOPHIL 1.4 % (0-2.0); EOSINOPHIL 8.2 % (0-4.5); MCH 28.9 pg (25.7-33.7); MCHC 31.8 g/dl (32.0-35.9); MEAN CELL VOLUME 90.8 fl (80-96); MEAN PLT VOLUME 8.9 fl (7.5-11.1); NEUTROPHILS 66.4 % (42.8-82.8); PLATELET COUNT 165 K/MM3 (134-434); RDW 17.6 % (11.9-15.9); WHITE BLOOD COUNT 5.6 K/mm3 (4.0-10.0)
[2017-02-10 04:43] LABS: ALBUMIN 2.9 g/dl (3.4-5.0); BILIRUBIN,TOTAL 0.3 mg/dL (0.2-1.0); CALCIUM 8.5 mg/dL (8.5-10.1); TOT PROT 6.9 g/dl (6.4-8.2)
[2017-02-10 04:48] LABS: COCKROFT - GAULT 8.31
[2017-02-10 05:07] LABS: CREATININE 8.3 mg/dL (0.7-1.3)
[2017-02-10 08:13] VITALS: BP 150/65; PULSE 79; TEMP 97.9
== END 2017-02-10 08:21 | disposition home or self-care (01) ==
LOC: JER 23:57 → SUPCPDRO 23:57 → JER 02-10 08:21
DX: L29.8 Other pruritus (principal); I13.2 Hypertensive heart and chronic kidney disease with heart failure and with stage 5 chronic kidney disease, or end stage renal disease; E11.22 Type 2 diabetes mellitus with diabetic chronic kidney disease; N18.6 End stage renal disease; I50.9 Heart failure, unspecified; N17.8 Other acute kidney failure; Z99.2 Dependence on renal dialysis; Z79.4 Long term (current) use of insulin; D64.9 Anemia, unspecified; E78.5 Hyperlipidemia, unspecified; I48.91 Unspecified atrial fibrillation; Z95.1 Presence of aortocoronary bypass graft; Z95.5 Presence of coronary angioplasty implant and graft; Z86.73 Personal history of transient ischemic attack (TIA), and cerebral infarction without residual deficits; Z86.718 Personal history of other venous thrombosis and embolism; Z79.01 Long term (current) use of anticoagulants; Z95.0 Presence of cardiac pacemaker
CPT/HCPCS: 36415; 80053; 85025; 99283-25

== ENCOUNTER 2017-02-12 00:04 | Emergency (ER) | payer OTHER ==
[2017-02-12 00:26] VITALS: TEMP 97.8; BMI 22.8
--- NOTE | 2017-02-12 05:38 | PDOC ---
*Physical Exam - Vital Signs Last Vital Signs Temp Pulse Resp BP Pulse Ox 97.8 F 71 16 160/73 98 02/12/17 00:24 02/12/17 00:24 02/12/17 00:24 02/12/17 00:24 02/12/17 00:24 Medical Decision Making - Medical Decision Making 02/12/17 05:38 agree with care from [facility] Jorge *DC/Admit/Observation/Transfer Diagnosis at time of Disposition: Arm pain, Arm mass - Discharge Dispostion Disposition: HOME Condition at time of disposition: Fair - Prescriptions Prescriptions: Cyclobenzaprine HCl [Flexeril 10 mg] 10 mg PO Q8H PRN #12 tablet PRN Reason: ARM PAIN - Referrals Referrals: Yrn Palacio MD [Primary Care Provider] - - Patient Instructions Printed Discharge Instructions: DI for Musculoskeletal Pain Additional Instructions: FOLLOW UP WITH DR. PALACIO THIS WEEK FOR FURTHER EVALUATION. MOTRIN OR TYLENOL FOR PAIN NEEDED. CYCLOBENZAPRINE FOR ARM PAIN NEEDED. TAKE WARM SHOWERS, REST. Print Language: BULGARIAN
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
[2017-02-12 06:55] VITALS: PULSE 75
[2017-02-12 07:10] VITALS: BP 143/65
== END 2017-02-12 07:16 | disposition home or self-care (01) ==
LOC: JER 00:04
DX: M79.602 Pain in left arm (principal); R22.32 Localized swelling, mass and lump, left upper limb; I25.10 Atherosclerotic heart disease of native coronary artery without angina pectoris; I13.2 Hypertensive heart and chronic kidney disease with heart failure and with stage 5 chronic kidney disease, or end stage renal disease; N18.6 End stage renal disease; I50.9 Heart failure, unspecified; Z99.2 Dependence on renal dialysis; Z95.1 Presence of aortocoronary bypass graft; Z95.5 Presence of coronary angioplasty implant and graft; Z87.891 Personal history of nicotine dependence; I48.91 Unspecified atrial fibrillation; Z79.01 Long term (current) use of anticoagulants; Z86.73 Personal history of transient ischemic attack (TIA), and cerebral infarction without residual deficits; Z86.718 Personal history of other venous thrombosis and embolism; N40.0 Benign prostatic hyperplasia without lower urinary tract symptoms; E11.9 Type 2 diabetes mellitus without complications; Z79.84 Long term (current) use of oral hypoglycemic drugs; E78.5 Hyperlipidemia, unspecified; D64.9 Anemia, unspecified; Z95.0 Presence of cardiac pacemaker
CPT/HCPCS: 99282-25

== ENCOUNTER 2017-02-15 15:41 | Emergency (ER) | payer OTHER ==
[2017-02-15 15:46] VITALS: TEMP 98; BMI 21.0
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
[2017-02-15 17:16] LABS: BASOPHIL 0.6 % (0-2.0); EOSINOPHIL 3.8 % (0-4.5); MCH 29.3 pg (25.7-33.7); MCHC 32.2 g/dl (32.0-35.9); MEAN CELL VOLUME 90.9 fl (80-96); MEAN PLT VOLUME 9.6 fl (7.5-11.1); NEUTROPHILS 69.5 % (42.8-82.8); PLATELET COUNT 130 K/MM3 (134-434); RDW 17.4 % (11.9-15.9); WHITE BLOOD COUNT 4.4 K/mm3 (4.0-10.0)
[2017-02-15 17:28] LABS: INR 1.06 (0.82-1.09); PROTHROMBIN TIME (PATIENT) 11.7 SEC (9.98-11.88)
[2017-02-15 17:31] LABS: ACTIVATED PTT 42.6 SECONDS (26.9-34.4)
[2017-02-15 17:39] LABS: ALBUMIN 3.3 g/dl (3.4-5.0); BILIRUBIN,TOTAL 0.4 mg/dL (0.2-1.0); CALCIUM 8.3 mg/dL (8.5-10.1); COCKROFT - GAULT 12.89; CREATININE 4.1 mg/dL (0.7-1.3); TOT PROT 7.5 g/dl (6.4-8.2)
[2017-02-15 17:41] LABS: TROPONIN I 0.07 ng/ml (0.00-0.05)
[2017-02-15 19:13] VITALS: BP 125/62; PULSE 67
--- NOTE | 2017-02-16 09:08 | EKG ---
Test Reason : Blood Pressure : / mmHG Vent. Rate : 060 BPM Atrial Rate : 060 BPM P-R Int : 000 ms QRS Dur : 170 ms QT Int : 516 ms P-R-T Axes : 000 -15 017 degrees QTc Int : 516 ms AV dual-paced rhythm Biventricular pacemaker detected ABNORMAL ECG WHEN COMPARED WITH ECG OF 18-JAN-2017 14:04, PREMATURE SUPRAVENTRICULAR COMPLEXES ARE NO LONGER PRESENT VENT. RATE HAS DECREASED BY 107 BPM Confirmed by FRANKIE GIANG MD ([id number]) on 02/16/2017 9:08:10 AM Referred By: Confirmed By:FRANKIE GIANG MD
== END 2017-02-15 19:13 | disposition left against medical advice (07) ==
LOC: JER 15:41
DX: R53.1 Weakness (principal); I25.10 Atherosclerotic heart disease of native coronary artery without angina pectoris; I13.2 Hypertensive heart and chronic kidney disease with heart failure and with stage 5 chronic kidney disease, or end stage renal disease; N18.6 End stage renal disease; I50.9 Heart failure, unspecified; Z99.2 Dependence on renal dialysis; Z95.1 Presence of aortocoronary bypass graft; Z95.5 Presence of coronary angioplasty implant and graft; I48.91 Unspecified atrial fibrillation; Z86.718 Personal history of other venous thrombosis and embolism; Z79.01 Long term (current) use of anticoagulants; D64.9 Anemia, unspecified; Z86.73 Personal history of transient ischemic attack (TIA), and cerebral infarction without residual deficits; E11.9 Type 2 diabetes mellitus without complications; Z79.4 Long term (current) use of insulin; Z95.0 Presence of cardiac pacemaker
CPT/HCPCS: 80053; 82550; 83605; 84484; 85025; 85610; 85730; 86850; 86900; 86901; 87040; 93005; 93010; 99283-25

== ENCOUNTER 2017-03-31 18:29 | Inpatient (IN) | payer OTHER ==
[2017-03-31] MEDS ORDERED: SODIUM CHLORIDE 0.9% 1000 ML INFUS.BAG IV PRN (18:52)
[2017-03-31 19:02] VITALS: BMI 22.1
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
[2017-03-31] MEDS ORDERED: VANCOMYCIN 1,000 MG in DEXTROSE 5%-WATER - 250 ML IVPB STA (19:16)
[2017-03-31] MEDS ORDERED: ACETAMINOPHEN 650 MG SUPP.RECT PR ONE (19:17)
[2017-03-31 19:22] LABS: VENOUS PH 7.42 (7.32-7.42)
[2017-03-31 19:27] LABS: BASOPHIL 0.6 % (0-2.0); EOSINOPHIL 0.9 % (0-4.5); MCHC 32.3 g/dl (32.0-35.9); MEAN CELL VOLUME 89.9 fl (80-96); MEAN PLT VOLUME 8.4 fl (7.5-11.1); NEUTROPHILS 83.4 % (42.8-82.8); PLATELET COUNT 171 K/MM3 (134-434); RDW 16.4 % (11.9-15.9); WHITE BLOOD COUNT 9.4 K/mm3 (4.0-10.0)
[2017-03-31 20:02] LABS: ANION GAP 9 (8-16); CALCIUM 8.7 mg/dL (8.5-10.1); CO2 28 mmol/L (21-32); CREATININE 3.8 mg/dL (0.7-1.3); GLUCOSE,RANDOM 124 mg/dL (74-106); SGOT/AST 18 U/L (15-37); SGPT/ALT 16 U/L (12-78)
[2017-03-31 20:05] LABS: INR 1.26 (0.82-1.09); PROTHROMBIN TIME (PATIENT) 13.9 SEC (9.98-11.88)
[2017-03-31 20:06] LABS: ALK PHOS 160 U/L (45-117); BILIRUBIN,TOTAL 0.7 mg/dL (0.2-1.0); TOT PROT 7.3 g/dl (6.4-8.2); TROPONIN I < 0.02 ng/ml (0.00-0.05)
[2017-03-31 20:08] LABS: ACTIVATED PTT 41.2 SECONDS (26.9-34.4)
--- NOTE | 2017-03-31 21:43 | HP ---
<Amisha Hayes - Last Filed: 04/01/17 01:00> CHIEF COMPLAINT: Lightheadedness and AMS PCP: Dr. Torres HISTORY OF PRESENT ILLNESS: 66 yo M with a PMHx of anemia, HTN, HLD, CVA, DVT, CAD s/p CAGB, pacemaker and stents, CHF, DM, ESRD (dialysis T,R,S), enlarged prostate and anxiety who presents with lightheadedness and AMS. Upon exam patient reports cough at times and abdominal pain stating he has to have a BM. Patient states his last BM was yesterday. Patient denies chest pain, palpitations, sob, nausea, vomiting and diarrhea. ER course was notable for: (1) T max of 110.7 (2) white count was 9.4 Recent Travel: Denies PAST MEDICAL HISTORY: Anemia HTN HLD CVA DVT CAD s/p CAGB,pacemaker and stents CHF DM ESRD (dialysis T,R,S) enlarged prostate anxiety PAST SURGICAL HISTORY: CABG. Stents. Pacemaker. Cardiac Cath. Right arm fistula Social History: Smoking: denies Alcohol: ETOH abuse Drugs: recreational drug use Family History: Noncontributory Allergies No Known Drug Allergies Allergy (Verified 03/31/17 18:53) HOME MEDICATIONS: 3 Medication Instructions Recorded Apixaban [Eliquis -] 2.5 mg PO BID #60 tablet 12/07/16 Aspirin [ASA -] 81 mg PO DAILY #0 tab.chew 12/07/16 Atorvastatin Ca [Lipitor] 20 mg PO HS #0 tablet 12/07/16 Carvedilol [Coreg -] 12.5 mg PO BID #60 tablet 12/07/16 Gabapentin [Neurontin -] 100 mg PO DAILY #0 capsule 12/07/16 Hydralazine HCl [Apresoline -] 50 mg PO BID #0 tablet 12/07/16 Isosorbide Mononitrate [Imdur -] 30 mg PO DAILY #0 tab.sr.24h 12/07/16 Pantoprazole Sodium [Protonix -] 40 mg PO BID #0 tablet.ec 12/07/16 Sevelamer Carbonate [Renvela -] 800 mg PO TIDCM #0 tab 12/07/16 Tamsulosin HCl [Flomax -] 0.4 mg PO DAILY@0830 #0 cap.er.24h 12/07/16 Cyclobenzaprine HCl [Flexeril 10 10 mg PO Q8H PRN #12 tablet 02/12/17 mg] REVIEW OF SYSTEMS CONSTITUTIONAL: Absent: fever, chills, diaphoresis, generalized weakness, malaise, loss of appetite, weight change HEENT: Absent: rhinorrhea, nasal congestion, throat pain, throat swelling, difficulty swallowing, mouth swelling, ear pain, eye pain, visual changes CARDIOVASCULAR: +lightheadedness Absent: chest pain, syncope, palpitations, irregular heart rate, peripheral edema RESPIRATORY: +cough Absent: shortness of breath, dyspnea with exertion, orthopnea, wheezing, stridor , hemoptysis GASTROINTESTINAL: +abdominal pain Absent: abdominal distension, nausea, vomiting, diarrhea, constipation, melena, hematochezia GENITOURINARY: Absent: dysuria, frequency, urgency, hesitancy, hematuria, flank pain, genital pain MUSCULOSKELETAL: Absent: myalgia, arthralgia, joint swelling, back pain, neck pain SKIN: Absent: rash, itching, pallor HEMATOLOGIC/IMMUNOLOGIC: Absent: easy bleeding, easy bruising, lymphadenopathy, frequent infections ENDOCRINE: Absent: unexplained weight gain, unexplained weight loss, heat intolerance, cold intolerance NEUROLOGIC: Absent: headache, focal weakness or paresthesias, dizziness, unsteady gait, seizure, mental status changes, bladder or bowel incontinence PSYCHIATRIC: Absent: anxiety, depression, suicidal or homicidal ideation, hallucinations. PHYSICAL EXAMINATION Vital Signs - 24 hr 3 03/31/17 03/31/17 03/31/17 18:53 18:56 19:30 Temperature 101.2 F H 101.2 F H 100.7 F H Pulse Rate [ 71 Apical] Respiratory 81 H 16 Rate Blood Pressure 150/83 Blood Pressure 127/58 [Right Arm] O2 Sat by Pulse 94 L 97 Oximetry (%) 3 03/31/17 03/31/17 20:05 21:27 Temperature 100.6 F H 99.3 F Pulse Rate [ 73 70 Apical] Respiratory 20 20 Rate Blood Pressure Blood Pressure 137/57 147/83 [Right Arm] O2 Sat by Pulse 96 95 Oximetry (%) GENERAL: Awake, alert, and fully oriented, in no acute distress. HEAD: Normal with no signs of trauma. EYES: Pupils equal, round and reactive to light, extraocular movements intact, sclera anicteric, conjunctiva clear. No lid lag. EARS, NOSE, THROAT: Ears normal, nares patent, oropharynx clear without exudates. Moist mucous membranes. NECK: Normal range of motion, supple without lymphadenopathy, JVD, or masses. LUNGS: Breath sounds equal. Crackles at L base. No wheezes. No accessory muscle use. HEART: Regular rate and rhythm, normal S1 and S2 without rub or gallop. Murmur 2 /6 at the 2nd ICS L sternal border. ABDOMEN: Soft, nontender, not distended, normoactive bowel sounds, no guarding, no rebound, no masses. No hepatomegaly or splenomegaly. MUSCULOSKELETAL: Normal range of motion at all joints. No bony deformities or tenderness. No CVA tenderness. UPPER EXTREMITIES: 2+ pulses, warm, well-perfused. No cyanosis. No clubbing. L arm swollen predominantly at the elbow spreading above and below with a darkish discoloration. Swelling is firm, nonfluctuant. LOWER EXTREMITIES: 2+ pulses, warm, well-perfused. No calf tenderness. No peripheral edema. NEUROLOGICAL: Cranial nerves II-XII intact. Normal speech. Gait not assessed. PSYCHIATRIC: Cooperative. Good eye contact. Appropriate mood and affect. SKIN: Warm, dry, normal turgor, no rashes or lesions noted, normal capillary refill. Laboratory Results - last 24 hr 3 03/31/17 03/31/17 03/31/17 18:56 19:00 19:00 WBC 9.4 D RBC 3.52 L Hgb 10.2 L D Hct 31.6 L MCV 89.9 MCHC 32.3 RDW 16.4 H Plt Count 171 D MPV 8.4 D Neutrophils % 83.4 H Lymphocytes % 3.6 L D Monocytes % 11.5 H Eosinophils % 0.9 Basophils % 0.6 INR 1.26 H PTT (Actin FS) 41.2 H VBG pH POC VBG pCO2 POC VBG pO2 Mixed VBG HCO3 Sodium Potassium Chloride Carbon Dioxide Anion Gap BUN Creatinine Creat Clearance w eGFR Random Glucose Lactic Acid Calcium Total Bilirubin AST ALT Alkaline Phosphatase Creatine Kinase Troponin I Total Protein Albumin Stool Occult Blood Blood Type O POSITIVE Antibody Screen Negative 3 03/31/17 03/31/17 03/31/17 19:00 19:00 19:10 WBC RBC Hgb Hct MCV MCHC RDW Plt Count MPV Neutrophils % Lymphocytes % Monocytes % Eosinophils % Basophils % INR PTT (Actin FS) VBG pH 7.42 POC VBG pCO2 44.1 D POC VBG pO2 34.9 D Mixed VBG HCO3 28.0 H Sodium 137 Potassium 3.9 Chloride 100 Carbon Dioxide 28 Anion Gap 9 BUN 22 H Creatinine 3.8 H Creat Clearance w eGFR 15.97 Random Glucose 124 H D Lactic Acid 1.1 Calcium 8.7 Total Bilirubin 0.7 D AST 18 D ALT 16 Alkaline Phosphatase 160 H Creatine Kinase 87 Troponin I < 0.02 D Total Protein 7.3 Albumin 3.0 L Stool Occult Blood Negative Blood Type Antibody Screen ASSESSMENT/PLAN: 66yM with PMH ESRD, HTN, CAD, CHF, anemia, DM, DVT, BPH well known to facility presented to the ED with complaint of altered mental status and lightheadedness. He was noted to be febrile and is being admitted for further evaluation. Fever of unknown origin - treat empirically with Vanc and Zosyn - ID consult - Blood cultures - Urine cultures - CXR with no obvious infiltrate, but patient does report a cough. Source could be respiratory. ESRD - continue dialysis T,R,S - renal consult - continue renagel HTN - continue home meds hydroxyzine and carvedilol - monitor BP and adjust dosing as indicated CAD - continue home meds imdur and aspirin - reported chest pain to ER, will trend troponins DM - sugar stable - unknown medications - will monitor fingersticks with Novalog sliding scale DVT in past - continue home eliquis BPH - continue home flomax FEN - defer IVF as patient is on dialysis and appears euvolemic on evaluation - BMP in AM - diabetic renal diet Disposition: Patient currently requires inpatient management due to his emergent condition. Documentation is prepared by Amisha Hayes acting as medical receptionist for Rhea Colorado N.P. <Rhea Colorado - Last Filed: 04/01/17 01:07> Visit type - Emergency Visit Emergency Visit: Yes ED Registration Date: 03/31/17 Care time: The patient presented to the Emergency Department on the above date and was hospitalized for further evaluation of their emergent condition. - New Patient This patient is new to me today: Yes Date on this admission: 03/31/17 - Critical Care Critical Care patient: No
[2017-03-31] MEDS ORDERED: PIPERACILLIN/TAZOB 2.25 GM 50 ML IVPB ONE (21:53)
[2017-03-31] MEDS ORDERED: PIPERACILLIN/TAZOB 4.5 GM 100 ML IVPB ONE (22:02)
[2017-03-31] MEDS ORDERED: ATORVASTATIN CA 40 MG TABLET (FP) ONE (22:15)
[2017-03-31] MEDS: INSULIN SLIDING SCALE (NOVOLOG) 1 VIAL SQ SCH (22:25)
[2017-03-31] MEDS: ATORVASTATIN CA 20 MG TABLET (FP) PO SCH (22:28)
[2017-03-31] MEDS: CARVEDILOL 12.5 MG TABLET (FP) PO SCH (22:28)
[2017-03-31] MEDS: hydrALAZINE HCL 25 MG TABLET (FP) PO SCH (22:28)
[2017-03-31] MEDS: PANTOPRAZOLE 40 MG TABLET (FP) PO SCH (22:28)
[2017-03-31] MEDS ORDERED: morphine CARPU-JECT 2 MG/1 ML DISP.SYRIN IVPUSH ONE (22:35)
[2017-03-31] MEDS: APIXABAN 2.5 MG TABLET PO SCH (22:46)
[2017-03-31 22:58] LABS: URINE APPEARANCE CLEAR; URINE BILIRUBIN NEGATIVE (NEGATIVE); URINE COLOR YELLOW; URINE GLUCOSE (UA) NEGATIVE (NEGATIVE); URINE KETONE NEGATIVE (NEGATIVE); URINE NITRITE NEGATIVE (NEGATIVE); URINE UROBILINOGEN NEGATIVE E.U./dl (0.2-1.0)
[2017-03-31 23:06] LABS: URINE BLOOD 1+ (NEGATIVE); URINE LEUK ESTERASE 1+ (NEGATIVE); URINE PROTEIN 2+ (NEGATIVE)
[2017-03-31 23:07] LABS: URINE BACTERIA RARE /hpf (NONE SEEN); URINE HYALINE CAST 1 /lpf; URINE MUCUS RARE; URINE RBC 9 /hpf (0-3); URINE WBC 10 /hpf (3-5)
[2017-03-31] MEDS ORDERED: morphine CARPU-JECT 2 MG/1 ML DISP.SYRIN ONE (23:37)
[2017-04-01 06:36] LABS: MCH 29.2 pg (25.7-33.7); MCHC 32.4 g/dl (32.0-35.9); MEAN CELL VOLUME 90.1 fl (80-96); MEAN PLT VOLUME 8.4 fl (7.5-11.1); PLATELET COUNT 154 K/MM3 (134-434); RDW 16.7 % (11.9-15.9); WHITE BLOOD COUNT 6.9 K/mm3 (4.0-10.0)
[2017-04-01 07:15] LABS: ANION GAP 9 (8-16); CALCIUM 8.7 mg/dL (8.5-10.1); CO2 29 mmol/L (21-32); CREATININE 4.3 mg/dL (0.7-1.3); GLUCOSE,RANDOM 104 mg/dL (74-106); MAGNESIUM 2.1 mg/dL (1.8-2.4)
[2017-04-01] MEDS: SEVELAMER CARBONATE 800 MG TAB (FP) PO SCH ×3 (09:03→17:00)
[2017-04-01] MEDS: TAMSULOSIN HCL 0.4 MG CAP.ER.24H (FP) PO SCH (09:03)
[2017-04-01] MEDS: INSULIN SLIDING SCALE (NOVOLOG) 1 VIAL SQ SCH ×4 (09:40→21:36)
[2017-04-01] MEDS: ASPIRIN 81 MG CHEWABLE TABLETS PO SCH (09:50)
[2017-04-01] MEDS: GABAPENTIN 100 MG CAPSULE (FP) PO SCH (09:50)
[2017-04-01] MEDS: PANTOPRAZOLE 40 MG TABLET (FP) PO SCH ×2 (09:50→21:36)
[2017-04-01] MEDS: APIXABAN 2.5 MG TABLET PO SCH ×2 (09:50→21:36)
[2017-04-01] MEDS: hydrALAZINE HCL 25 MG TABLET (FP) PO SCH ×2 (09:52→21:35)
[2017-04-01] MEDS: ISOSORBIDE MONONITRATE 30 MG TAB.SR.24H (FP) PO SCH (09:52)
[2017-04-01] MEDS: CARVEDILOL 12.5 MG TABLET (FP) PO SCH ×2 (09:52→21:36)
[2017-04-01] MEDS ORDERED: INSULIN (NOVOLOG) ASPART 100 UNITS/ML 10ML VIAL ONE ×2 (11:49→16:50)
--- NOTE | 2017-04-01 12:29 | PN ---
Progress Note (short form) - Note Progress Note: ID Consult dictated 66 y/o male PMH ESRD, multiple co-morbid conditions, admitted with c/o dizziness. Febrile in ER 101.5 Fever, unclear source Pending cultures, empiric vanco/ zosyn, adjusted for ESRD
[2017-04-01] MEDS ORDERED: VANCOMYCIN 1 GRAM (PRE-DOCKED) 250 ML IVPB ONE ×2 (13:06→14:00)
[2017-04-01] MEDS ORDERED: CYCLOBENZAPRINE HCL 10 MG TABLET (FP) ONE (13:23)
[2017-04-01] MEDS: CYCLOBENZAPRINE HCL 10 MG TABLET (FP) PO PRN (13:32)
--- NOTE | 2017-04-01 13:35 | EKG ---
Test Reason : Blood Pressure : / mmHG Vent. Rate : 080 BPM Atrial Rate : 250 BPM P-R Int : 000 ms QRS Dur : 162 ms QT Int : 436 ms P-R-T Axes : 000 052 000 degrees QTc Int : 502 ms Ventricular-paced rhythm Biventricular pacemaker detected ABNORMAL ECG WHEN COMPARED WITH ECG OF 15-FEB-2017 17:18, VENT. RATE HAS INCREASED BY 20 BPM Confirmed by ТАТЬЯНА DAVIS MD ([id number]) on 04/01/2017 1:34:48 PM Referred By: Confirmed By:ТАТЬЯНА DAVIS MD
--- NOTE | 2017-04-01 13:48 | CONS ---
DATE OF CONSULTATION: DATE OF DICTATION: 04/01/2017 INFECTIOUS DISEASE CONSULTATION HISTORY OF PRESENT ILLNESS: The patient is a 66-year-old male with a history of end-stage renal disease, on hemodialysis, with multiple comorbid conditions, evaluated for fever. History was obtained from the chart as well as his wallpaper hanger helper, as he does not give a reliable history. He had his usual hemodialysis session yesterday. Over the past 24 hours he developed worsening dizziness, prompting him to come to the emergency room. In the emergency room, his temperature was 101.5. He reports an occasional cough but otherwise had no focal complaint. He has a PermCath which has been in place for some time, which apparently has been functioning well. He has a chronically swollen left upper extremity secondary to a clot in the past. He denies any chest pain or dyspnea. Denies vomiting, diarrhea or dysuria. PAST MEDICAL HISTORY: Positive for end-stage renal disease, on hemodialysis; history of a chronically swollen left upper extremity secondary to blood clot; chronic anemia; coronary artery disease; hypertension; hyperlipidemia; stroke; DVT; congestive heart failure; diabetes mellitus. PAST SURGICAL HISTORY: Status post coronary artery stents, permanent pacemaker, coronary artery bypass graft, valve replacement, and right upper extremity fistula. ALLERGIES: No known allergies. MEDICATIONS: Eliquis, aspirin, Lipitor, Coreg, Neurontin, Apresoline, Imdur, Protonix, Flomax, Flexeril. SOCIAL HISTORY: He lives at home. No active tobacco or alcohol use. REVIEW OF SYSTEMS: Neurologic: Positive for stroke. No loss of consciousness, seizure activity. Cardiac: Negative for chest pain or palpitations. Respiratory: Positive cough. Gastrointestinal: Negative for vomiting or diarrhea. Genitourinary: End-stage renal disease, on hemodialysis. LABORATORY DATA: White count 6.9, hematocrit 32.4, platelet count 154. BUN 24, creatinine 4.3. Urinalysis with 10 white cells. Blood and urine cultures are pending. Chest x-ray negative for acute infiltrate. On review of cultures, the patient has had multiple cultures in the past which have been unrevealing. A positive blood culture for P. acnes from December 2016 noted. PHYSICAL EXAMINATION: General: He is awake but lethargic. He answers questions appropriately. However, he does not give a reliable history. Vital Signs: Temperature 97.9, blood pressure 112/58, pulse 72 and regular, respirations 20 per minute. HEENT: Sclerae anicteric. Positive conjunctival injection. Poor dentition. Neck: Supple. There is a catheter present in the right neck. There is slight prominence of the left parotid gland, nontender. Cardiac: Heart sounds S1, S2. A 2/6 pansystolic murmur. Lungs: Diminished breath sounds bilaterally. Abdomen: Soft. Slightly distended. Healed surgical scar. No tenderness elicited. No mass, rebound or rigidity. Extremities: Negative for pedal edema. No foot ulcers are noted. On examination of the right upper extremity, he is status post amputation of the right 3rd digit. There appears to be an AV graft present in the right upper extremity. The left upper extremity is diffusely swollen and slightly tender to touch. This is apparently a chronic condition, according to his wallpaper hanger helper. A dialysis catheter is present in the left chest area. IMPRESSION: A 66-year-old male with a history of end-stage renal disease, on hemodialysis, with multiple comorbid conditions, now admitted with dizziness, febrile in the emergency room to 101.5. Source of fever not clear. Potential sources include catheter-related bacteremia/sepsis, pneumonia, possible occult intra-abdominal focus. PLAN: Pending sepsis workup, we will empirically treat with Zosyn and vancomycin, adjusted for renal failure. Case discussed with his wallpaper hanger helper. Will follow. Thank you for the kind referral. GERBER GOINS M.D. [id number]
[2017-04-01] MEDS: PIPERACILLIN/TAZOB 2.25 GM 50 ML IVPB SCH ×2 (16:23→18:05)
[2017-04-01] MEDS ORDERED: traMADol HCL 50 MG TABLET ONE (17:01)
[2017-04-01] MEDS: traMADol HCL 50 MG TABLET PO PRN (17:02)
--- NOTE | 2017-04-01 17:41 | CONSULT ---
Consult Consult Specialty:: Nephrology Reason for Consultation:: ESRD - History of Present Illness Chief Complaint: altered mental status History of Present Illness: Pt is a 66 year old male with pmhx of ESRD on HD, non compliance, CVA, DVT, CAD , DM, CHF, and BPH who presents to the ER complaining of light headedness and altered mental status. I was called to evaluate him as he has ESRD and is on HD. He last had HD yesterday. He denies chest pain or shortness of breath. He complains of generalized body pain. He denies fevers or chills. 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: CVA Cardio/Vascular: Yes: AFIB (paroxysmal), CAD (CABG, PCI/KAT), CHF, Deep Vein Thrombosis, HTN, Hyperlipdemia Renal/: Yes: Renal Failure, Hemodialysis Psych: Yes: Anxiety Endocrine: Yes: Diabetes Mellitus - Past Surgical History Past Surgical History: Yes: AICD, Amputation (right 3rd finger), CABG (3v CABG and mitral ring 2009 (GUADALUPE->LAD, SVG->LPL, SVG->D1 jump D2.), Stent - Alcohol/Substance Use Hx Alcohol Use: No History of Substance Use: reports: Prescription - Smoking History Smoking history: Unknown if ever smoked Have you smoked in the past 12 months: No Aproximately how many cigarettes per day: 0 If you are a former smoker, when did you quit?: 2013 - Social History Usual Living Arrangement: With Spouse ADL: Independent History of Recent Travel: No Home Medications - Allergies Allergies/Adverse Reactions: Allergies Allergy/AdvReac Type Severity Reaction Status Date / Time No Known Drug Allergies Allergy Verified 03/31/17 18:53 - Home Medications Home Medications: Ambulatory Orders Apixaban [Eliquis -] 2.5 mg PO BID #60 tablet 12/07/16 Aspirin [ASA -] 81 mg PO DAILY #0 tab.chew 12/07/16 Atorvastatin Ca [Lipitor] 20 mg PO HS #0 tablet 12/07/16 Carvedilol [Coreg -] 12.5 mg PO BID #60 tablet 12/07/16 Gabapentin [Neurontin -] 100 mg PO DAILY #0 capsule 12/07/16 Hydralazine HCl [Apresoline -] 50 mg PO BID #0 tablet 12/07/16 Isosorbide Mononitrate [Imdur -] 30 mg PO DAILY #0 tab.sr.24h 12/07/16 Pantoprazole Sodium [Protonix -] 40 mg PO BID #0 tablet.ec 12/07/16 Sevelamer Carbonate [Renvela -] 800 mg PO TIDCM #0 tab 12/07/16 Tamsulosin HCl [Flomax -] 0.4 mg PO DAILY@0830 #0 cap.er.24h 12/07/16 Cyclobenzaprine HCl [Flexeril 10 mg] 10 mg PO Q8H PRN #12 tablet 02/12/17 Family Disease History - Family Disease History Family Disease History: Diabetes: Brother, Heart Disease: Brother, Other: Father (Stroke) Review of Systems - Review of Systems Constitutional: reports: Loss of Appetite, Malaise, Weakness Eyes: reports: No Symptoms HENT: reports: No Symptoms Neck: reports: No Symptoms Cardiovascular: reports: No Symptoms Respiratory: reports: No Symptoms Gastrointestinal: reports: No Symptoms Genitourinary: reports: No Symptoms Integumentary: reports: No Symptoms Neurological: reports: No Symptoms Hematology/Lymphatic: reports: No Symptoms Psychiatric: reports: No Symptoms Physical Exam Vital Signs: Vital Signs Temperature 98.3 F 04/01/17 11:45 Pulse Rate 72 04/01/17 11:45 Respiratory Rate 20 04/01/17 11:45 Blood Pressure 104/64 04/01/17 11:45 O2 Sat by Pulse Oximetry (%) 100 04/01/17 11:45 Constitutional: Yes: Calm Eyes: Yes: Conjunctiva Clear HENT: Yes: Atraumatic Neck: Yes: Supple Cardiovascular: Yes: S1, S2 Respiratory: Yes: CTA Bilaterally Gastrointestinal: Yes: Soft Musculoskeletal: Yes: WNL Edema: Yes Edema: LLE: Trace, RLE: Trace Neurological: Yes: Oriented Psychiatric: Yes: Oriented Labs: CBC, BMP 04/01/17 06:05 04/01/17 06:05 Laboratory Tests 03/31/17 03/31/17 03/31/17 18:56 19:00 19:00 Hgb 10.2 L D Sodium Potassium Chloride Carbon Dioxide Anion Gap BUN 22 H Creatinine 3.8 H Urine Color Yellow Urine Appearance Clear Urine pH 6.0 D Ur Specific [place] 1.020 Urine Glucose (UA) Negative Urine Ketones Negative Urine Blood 1+ H Urine Bilirubin Negative 04/01/17 04/01/17 06:05 06:05 Hgb 10.5 L Sodium 137 Potassium 3.8 Chloride 99 Carbon Dioxide 29 Anion Gap 9 BUN 24 H Creatinine 4.3 H Urine Color Urine Appearance Urine pH Ur Specific [place] Urine Glucose (UA) Urine Ketones Urine Blood Urine Bilirubin Imaging - Results Chest X-ray: Report Reviewed Assessment/Plan Current Medications Generic Name Dose Route Start Last Admin Trade Name Freq PRN Reason Stop Dose Admin Apixaban 2.5 mg 03/31/17 22:00 04/01/17 09:50 Eliquis - PO 2.5 mg BID NGOC Administration Aspirin 81 mg 04/01/17 10:00 04/01/17 09:50 Asa - PO 81 mg DAILY NGOC Administration Atorvastatin Calcium 20 mg 03/31/17 22:00 03/31/17 22:28 Lipitor - PO 20 mg HS NGOC Administration Carvedilol 12.5 mg 03/31/17 22:00 04/01/17 09:52 Coreg - PO 12.5 mg BID NGOC Administration Cyclobenzaprine HCl 10 mg 03/31/17 21:59 04/01/17 13:32 Flexeril - PO 10 mg Q8H PRN Administration ARM PAIN Gabapentin 100 mg 04/01/17 10:00 04/01/17 09:50 Neurontin - PO 100 mg DAILY NGOC Administration Hydralazine HCl 50 mg 03/31/17 22:00 04/01/17 09:52 Apresoline - PO 50 mg BID NGOC Administration Piperacillin Sod/Tazobactam Sod 50 mls @ 100 mls/hr 04/01/17 13:00 04/01/17 16: 23 Zosyn 2.25gm Ivpb (Pre-Docked) IVPB 100 mls/hr Q8H-IV NGOC Administration Protocol Insulin Aspart 1 vial 03/31/17 22:00 04/01/17 16:56 Novolog Vial Sliding Scale - SQ 4 unit ACHS NGOC Administration Protocol Isosorbide Mononitrate 30 mg 04/01/17 10:00 04/01/17 09:52 Imdur - PO 30 mg DAILY NGOC Administration Pantoprazole Sodium 40 mg 03/31/17 22:00 04/01/17 09:50 Protonix - PO 40 mg BID NGOC Administration Sevelamer Carbonate 800 mg 04/01/17 08:00 04/01/17 17:00 Renvela - PO 800 mg TIDCM NGOC Administration Sodium Chloride 250 ml 03/31/17 18:52 Normal Saline - IV Q20M PRN MAP<65mm Hg OR SBP <90 Tamsulosin HCl 0.4 mg 04/01/17 08:30 04/01/17 09:03 Flomax - PO 0.4 mg DAILY@0830 NGOC Administration Tramadol HCl 50 mg 04/01/17 15:46 04/01/17 17:02 Ultram - PO 50 mg Q8H PRN Administration PAIN Impression 1. ESRD 2. CAD 3. HTN 4. narcotic dependence 5. non compliance 6. pleural effusions 7. anemia 8. chest pain 9. DVT 10. hx GI bleed Plan - will arrange for HD in am - follow up cultures - ID input appreciated - monitor blood pressure - resume home meds - will follow Dr Campos
--- NOTE | 2017-04-01 18:15 | PN ---
Progress Note (short form) - Note Progress Note: Subjective: The patient was seen and examined at the bedside, he has no complaints at this time Current Medications Generic Name Dose Route Start Last Admin Trade Name Mary PRN Reason Stop Dose Admin Apixaban 2.5 mg 03/31/17 22:00 04/01/17 09:50 Eliquis - PO 2.5 mg BID NGOC Administration Aspirin 81 mg 04/01/17 10:00 04/01/17 09:50 Asa - PO 81 mg DAILY NGOC Administration Atorvastatin Calcium 20 mg 03/31/17 22:00 03/31/17 22:28 Lipitor - PO 20 mg HS NGOC Administration Carvedilol 12.5 mg 03/31/17 22:00 04/01/17 09:52 Coreg - PO 12.5 mg BID NGOC Administration Cyclobenzaprine HCl 10 mg 03/31/17 21:59 04/01/17 13:32 Flexeril - PO 10 mg Q8H PRN Administration ARM PAIN Gabapentin 100 mg 04/01/17 10:00 04/01/17 09:50 Neurontin - PO 100 mg DAILY NGOC Administration Hydralazine HCl 50 mg 03/31/17 22:00 04/01/17 09:52 Apresoline - PO 50 mg BID NGOC Administration Piperacillin Sod/Tazobactam Sod 50 mls @ 100 mls/hr 04/01/17 13:00 04/01/17 16: 23 Zosyn 2.25gm Ivpb (Pre-Docked) IVPB 100 mls/hr Q8H-IV NGOC Administration Protocol Insulin Aspart 1 vial 03/31/17 22:00 04/01/17 16:56 Novolog Vial Sliding Scale - SQ 4 unit ACHS NGOC Administration Protocol Isosorbide Mononitrate 30 mg 04/01/17 10:00 04/01/17 09:52 Imdur - PO 30 mg DAILY NGOC Administration Pantoprazole Sodium 40 mg 03/31/17 22:00 04/01/17 09:50 Protonix - PO 40 mg BID NGOC Administration Sevelamer Carbonate 800 mg 04/01/17 08:00 04/01/17 17:00 Renvela - PO 800 mg TIDCM NGOC Administration Sodium Chloride 250 ml 03/31/17 18:52 Normal Saline - IV Q20M PRN MAP<65mm Hg OR SBP <90 Tamsulosin HCl 0.4 mg 04/01/17 08:30 04/01/17 09:03 Flomax - PO 0.4 mg DAILY@0830 NGOC Administration Tramadol HCl 50 mg 04/01/17 15:46 04/01/17 17:02 Ultram - PO 50 mg Q8H PRN Administration PAIN Objective: Vital Signs Period Temp Pulse Resp BP Sys/Hinds Pulse Ox Last 24 Hr 97.8 F-101.2 F 65-73 16-81 99-150/52-83 94-100 Physical Exam: General: NAD, A&Ox3 Patient refused exam Ext: LUE visibly edematous CBCD WBC 6.9 K/mm3 (4.0-10.0) 04/01/17 06:05 RBC 3.60 M/mm3 (4.00-5.60) L 04/01/17 06:05 Hgb 10.5 GM/dL (11.7-16.9) L 04/01/17 06:05 Hct 32.4 % (35.4-49) L 04/01/17 06:05 MCV 90.1 fl (80-96) 04/01/17 06:05 MCHC 32.4 g/dl (32.0-35.9) 04/01/17 06:05 RDW 16.7 % (11.9-15.9) H 04/01/17 06:05 Plt Count 154 K/MM3 (134-434) 04/01/17 06:05 MPV 8.4 fl (7.5-11.1) 04/01/17 06:05 CMP Sodium 137 mmol/L (136-145) 04/01/17 06:05 Potassium 3.8 mmol/L (3.5-5.1) 04/01/17 06:05 Chloride 99 mmol/L (98-107) 04/01/17 06:05 Carbon Dioxide 29 mmol/L (21-32) 04/01/17 06:05 Anion Gap 9 (8-16) 04/01/17 06:05 BUN 24 mg/dL (7-18) H 04/01/17 06:05 Creatinine 4.3 mg/dL (0.7-1.3) H 04/01/17 06:05 Creat Clearance w eGFR 15.97 (>60) 03/31/17 19:00 Random Glucose 104 mg/dL (74-106) 04/01/17 06:05 Calcium 8.7 mg/dL (8.5-10.1) 04/01/17 06:05 Total Bilirubin 0.7 mg/dL (0.2-1.0) D 03/31/17 19:00 AST 18 U/L (15-37) D 03/31/17 19:00 ALT 16 U/L (12-78) 03/31/17 19:00 Alkaline Phosphatase 160 U/L (45-117) H 03/31/17 19:00 Total Protein 7.3 g/dl (6.4-8.2) 03/31/17 19:00 Albumin 3.0 g/dl (3.4-5.0) L 03/31/17 19:00 CARDIAC ENZYMES Creatine Kinase 87 IU/L (39-308) 03/31/17 19:00 Troponin I 0.02 ng/ml (0.00-0.05) 04/01/17 06:05 Microbiology 04/01/17 14:20 Nasopharyngeal Swab Influenza Types A,B Antigen (NAVID) - Final 04/01/17 14:20 Nasopharyngeal Swab - Final Assessment: 65 year old male with ESRD- HD (,,Thu), CHF, CABG, PM, DM, 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- [facility]), CABG, PM, stents presented to the ED with lightheadedness and AMS Plan: 1) ID: Fever, unclear source - Tmax 101.2 - Continue Vancomycin - Continue Zosyn - F/u cultures - Appreciate ID consult 2) : ESRD on HD - Continue current HD regimen - Appreciate nephrology consult BPH - Continue Flomax 3) Vascular: Hx of RUE DVT - Continue Eliquis LUE with swelling - F/u ultrasound LUE to r/o collection/hematoma - F/u doppler to r/o DVT 4) Cardiology: HTN - Continue Coreg - Continue Hydralazine CAD s/p stenting - Continue Imdur - Continue ASA Chest Pain - Resolved - Trop x3 negative HLD - Continue Lipitor 5) Endocrine: DM - BGM ACHS - ISS ACHS 6) F/E/N: - Renal diabetic diet - Monitor electrolytes 7) Prophylaxis: - On Eliquis 8) Dispo: - Requires continued inpatient care CODE STATUS: FULL CODE Visit type - Emergency Visit Emergency Visit: Yes ED Registration Date: 03/31/17 Care time: The patient presented to the Emergency Department on the above date and was hospitalized for further evaluation of their emergent condition. - New Patient This patient is new to me today: No - Critical Care Critical Care patient: No
[2017-04-01] MEDS: ATORVASTATIN CA 20 MG TABLET (FP) PO SCH (21:36)
[2017-04-02] MEDS: PIPERACILLIN/TAZOB 2.25 GM 50 ML IVPB SCH ×4 (02:38→17:38)
[2017-04-02] MEDS: INSULIN SLIDING SCALE (NOVOLOG) 1 VIAL SQ SCH ×4 (06:10→22:06)
[2017-04-02] MEDS ORDERED: EPOETIN ALFA 2,000 UNITS/1 ML VIAL IVPUSH ONE (08:30)
[2017-04-02] MEDS ORDERED: HEPARIN NA (PORCINE) 5,000 UNITS/ML 1ML VIAL IVPUSH ONE (08:30)
[2017-04-02 08:48] LABS: MCH 29.2 pg (25.7-33.7); MCHC 32.2 g/dl (32.0-35.9); MEAN CELL VOLUME 90.6 fl (80-96); MEAN PLT VOLUME 8.6 fl (7.5-11.1); PLATELET COUNT 124 K/MM3 (134-434); RDW 16.5 % (11.9-15.9); WHITE BLOOD COUNT 6.3 K/mm3 (4.0-10.0)
--- NOTE | 2017-04-02 08:48 | PN ---
Progress Note (short form) - Note Progress Note: Subjective: The patient was seen and examined at the bedside, he is currently receiving HD stating he is hungry and would like to eat Current Medications Generic Name Dose Route Start Last Admin Trade Name Freq PRN Reason Stop Dose Admin Apixaban 2.5 mg 03/31/17 22:00 04/01/17 21:36 Eliquis - PO 2.5 mg BID [facility] Administration Aspirin 81 mg 04/01/17 10:00 04/01/17 09:50 Asa - PO 81 mg DAILY [facility] Administration Atorvastatin Calcium 20 mg 03/31/17 22:00 04/01/17 21:36 Lipitor - PO 20 mg HS [facility] Administration Carvedilol 12.5 mg 03/31/17 22:00 04/01/17 21:36 Coreg - PO 12.5 mg BID [facility] Administration Cyclobenzaprine HCl 10 mg 03/31/17 21:59 04/01/17 13:32 Flexeril - PO 10 mg Q8H PRN Administration ARM PAIN Gabapentin 100 mg 04/01/17 10:00 04/01/17 09:50 Neurontin - PO 100 mg DAILY [facility] Administration Hydralazine HCl 50 mg 03/31/17 22:00 04/01/17 21:35 Apresoline - PO 50 mg BID [facility] Administration Piperacillin Sod/Tazobactam Sod 50 mls @ 100 mls/hr 04/01/17 13:00 04/02/17 02: 38 Zosyn 2.25gm Ivpb (Pre-Docked) IVPB 100 mls/hr Q8H-IV [facility] Administration Protocol Insulin Aspart 1 vial 03/31/17 22:00 04/02/17 06:10 Novolog Vial Sliding Scale - SQ Not Given ACHS [facility] Protocol Isosorbide Mononitrate 30 mg 04/01/17 10:00 04/01/17 09:52 Imdur - PO 30 mg DAILY [facility] Administration Pantoprazole Sodium 40 mg 03/31/17 22:00 04/01/17 21:36 Protonix - PO 40 mg BID [facility] Administration Sevelamer Carbonate 800 mg 04/01/17 08:00 04/01/17 17:00 Renvela - PO 800 mg TIDCM [facility] Administration Sodium Chloride 250 ml 03/31/17 18:52 Normal Saline - IV Q20M PRN MAP<65mm Hg OR SBP <90 Tamsulosin HCl 0.4 mg 04/01/17 08:30 04/01/17 09:03 Flomax - PO 0.4 mg DAILY@0830 [facility] Administration Tramadol HCl 50 mg 04/01/17 15:46 04/01/17 17:02 Ultram - PO 50 mg Q8H PRN Administration PAIN Objective: Vital Signs Period Temp Pulse Resp BP Sys/Hinds Pulse Ox Last 24 Hr 97.1 F-98.6 F 60-72 17-20 90-113/33-68 94-100 Physical Exam: General: NAD, A&Ox3 Patient refused exam Ext: LUE visibly edematous CBCD WBC 6.9 K/mm3 (4.0-10.0) 04/01/17 06:05 RBC 3.60 M/mm3 (4.00-5.60) L 04/01/17 06:05 Hgb 10.5 GM/dL (11.7-16.9) L 04/01/17 06:05 Hct 32.4 % (35.4-49) L 04/01/17 06:05 MCV 90.1 fl (80-96) 04/01/17 06:05 MCHC 32.4 g/dl (32.0-35.9) 04/01/17 06:05 RDW 16.7 % (11.9-15.9) H 04/01/17 06:05 Plt Count 154 K/MM3 (134-434) 04/01/17 06:05 MPV 8.4 fl (7.5-11.1) 04/01/17 06:05 CMP Sodium 137 mmol/L (136-145) 04/01/17 06:05 Potassium 3.8 mmol/L (3.5-5.1) 04/01/17 06:05 Chloride 99 mmol/L (98-107) 04/01/17 06:05 Carbon Dioxide 29 mmol/L (21-32) 04/01/17 06:05 Anion Gap 9 (8-16) 04/01/17 06:05 BUN 24 mg/dL (7-18) H 04/01/17 06:05 Creatinine 4.3 mg/dL (0.7-1.3) H 04/01/17 06:05 Creat Clearance w eGFR 15.97 (>60) 03/31/17 19:00 Random Glucose 104 mg/dL (74-106) 04/01/17 06:05 Calcium 8.7 mg/dL (8.5-10.1) 04/01/17 06:05 Total Bilirubin 0.7 mg/dL (0.2-1.0) D 03/31/17 19:00 AST 18 U/L (15-37) D 03/31/17 19:00 ALT 16 U/L (12-78) 03/31/17 19:00 Alkaline Phosphatase 160 U/L (45-117) H 03/31/17 19:00 Total Protein 7.3 g/dl (6.4-8.2) 03/31/17 19:00 Albumin 3.0 g/dl (3.4-5.0) L 03/31/17 19:00 CARDIAC ENZYMES Creatine Kinase 87 IU/L (39-308) 03/31/17 19:00 Troponin I 0.02 ng/ml (0.00-0.05) 04/01/17 06:05 Microbiology 03/31/17 19:10 Blood - Peripheral Venous Blood Culture - Preliminary Pending Organism 03/31/17 19:00 Blood - Peripheral Venous Blood Culture - Preliminary Pending Organism 04/01/17 14:20 Nasopharyngeal Swab Influenza Types A,B Antigen (NAVID) - Final 04/01/17 14:20 Nasopharyngeal Swab - Final Assessment: 65 year old male with ESRD- HD (,,Thu), CHF, CABG, PM, DM, 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 Diffuse soft tissue edema in the left arm including elbow without evidence of fluid collection - Left arm elevation 4) Cardiology: HTN - Continue Coreg - Continue Hydralazine CAD s/p stenting - Continue Imdur - Continue ASA Chest Pain - Resolved - Trop x3 negative HLD - Continue Lipitor 5) Endocrine: DM - BGM ACHS - ISS ACHS 6) F/E/N: - Renal diabetic diet - Monitor electrolytes 7) Prophylaxis: - On Eliquis 8) Dispo: - Requires continued inpatient care CODE STATUS: FULL CODE Visit type - Emergency Visit Emergency Visit: Yes ED Registration Date: 03/31/17 Care time: The patient presented to the Emergency Department on the above date and was hospitalized for further evaluation of their emergent condition. - New Patient This patient is new to me today: No - Critical Care Critical Care patient: No
[2017-04-02 09:07] LABS: ALBUMIN 2.6 g/dl (3.4-5.0); ANION GAP 11 (8-16); BILIRUBIN,TOTAL 0.5 mg/dL (0.2-1.0); CALCIUM 8.3 mg/dL (8.5-10.1); CO2 27 mmol/L (21-32); CREATININE 5.8 mg/dL (0.7-1.3); GLUCOSE,RANDOM 131 mg/dL (74-106); SGOT/AST 13 U/L (15-37); SGPT/ALT 12 U/L (12-78); TOT PROT 6.2 g/dl (6.4-8.2)
[2017-04-02 09:08] LABS: ALK PHOS 128 U/L (45-117)
[2017-04-02] MEDS: traMADol HCL 50 MG TABLET PO PRN ×2 (09:14→22:06)
[2017-04-02] MEDS: SEVELAMER CARBONATE 800 MG TAB (FP) PO SCH ×3 (09:22→16:31)
[2017-04-02] MEDS: TAMSULOSIN HCL 0.4 MG CAP.ER.24H (FP) PO SCH (09:22)
[2017-04-02] MEDS: hydrALAZINE HCL 25 MG TABLET (FP) PO SCH ×2 (09:22→22:06)
[2017-04-02] MEDS: CARVEDILOL 12.5 MG TABLET (FP) PO SCH ×2 (09:23→22:06)
[2017-04-02] MEDS: PANTOPRAZOLE 40 MG TABLET (FP) PO SCH ×2 (09:23→22:05)
[2017-04-02] MEDS: ISOSORBIDE MONONITRATE 30 MG TAB.SR.24H (FP) PO SCH (09:23)
[2017-04-02] MEDS: GABAPENTIN 100 MG CAPSULE (FP) PO SCH (09:23)
[2017-04-02] MEDS: APIXABAN 2.5 MG TABLET PO SCH ×2 (09:23→22:06)
[2017-04-02] MEDS: ASPIRIN 81 MG CHEWABLE TABLETS PO SCH (09:23)
--- NOTE | 2017-04-02 10:47 | PN ---
Progress Note, Physician History of Present Illness: Awake, alert No c/o pain Received HD Remains afebrile BC GPCCL multiple bottles - Current Medication List Current Medications: Active Medications Apixaban (Eliquis -) 2.5 mg PO BID [facility] Last Admin: 04/02/17 09:23 Dose: Not Given Aspirin (Asa -) 81 mg PO DAILY [facility] Last Admin: 04/02/17 09:23 Dose: Not Given Atorvastatin Calcium (Lipitor -) 20 mg PO HS [facility] Last Admin: 04/01/17 21:36 Dose: 20 mg Carvedilol (Coreg -) 12.5 mg PO BID [facility] Last Admin: 04/02/17 09:23 Dose: Not Given Cyclobenzaprine HCl (Flexeril -) 10 mg PO Q8H PRN PRN Reason: ARM PAIN Last Admin: 04/01/17 13:32 Dose: 10 mg Gabapentin (Neurontin -) 100 mg PO DAILY [facility] Last Admin: 04/02/17 09:23 Dose: Not Given Hydralazine HCl (Apresoline -) 50 mg PO BID [facility] Last Admin: 04/02/17 09:22 Dose: Not Given Piperacillin Sod/Tazobactam Sod (Zosyn 2.25gm Ivpb (Pre-Docked)) 50 mls @ 100 mls/hr IVPB Q8H-IV [facility] PRN Reason: Protocol Last Admin: 04/02/17 09:23 Dose: Not Given Insulin Aspart (Novolog Vial Sliding Scale -) 1 vial SQ ACHS [facility] PRN Reason: Protocol Last Admin: 04/02/17 06:10 Dose: Not Given Isosorbide Mononitrate (Imdur -) 30 mg PO DAILY [facility] Last Admin: 04/02/17 09:23 Dose: Not Given Pantoprazole Sodium (Protonix -) 40 mg PO BID [facility] Last Admin: 04/02/17 09:23 Dose: Not Given Sevelamer Carbonate (Renvela -) 800 mg PO TIDCM [facility] Last Admin: 04/02/17 09:22 Dose: Not Given Sodium Chloride (Normal Saline -) 250 ml IV Q20M PRN PRN Reason: MAP<65mm Hg OR SBP <90 Tamsulosin HCl (Flomax -) 0.4 mg PO DAILY@0830 [facility] Last Admin: 04/02/17 09:22 Dose: Not Given Tramadol HCl (Ultram -) 50 mg PO Q8H PRN PRN Reason: PAIN Last Admin: 04/02/17 09:14 Dose: 50 mg - Objective Vital Signs: Vital Signs Temperature 97.7 F 04/02/17 10:00 Pulse Rate 64 04/02/17 10:00 Respiratory Rate 20 04/02/17 10:00 Blood Pressure 117/53 04/02/17 10:00 O2 Sat by Pulse Oximetry (%) 98 04/02/17 09:00 Constitutional: Yes: No Distress, Cachectic Cardiovascular: Yes: Regular Rate and Rhythm, S1, S2 Respiratory: Yes: CTA Bilaterally Gastrointestinal: Yes: Normal Bowel Sounds, Soft. No: Tenderness Extremities: Yes: Other (L UE edema) Edema: No (no pedal edema) Integumentary: Yes: Other (Diaysis catheter L chest) Labs: CBC, BMP 04/02/17 07:05 04/02/17 07:05 INR, PTT INR 1.26 (0.82-1.09) H 03/31/17 19:00 Assessment/Plan Staph bacteremia/ sepsis possible catheter-related bacteremia ESRD Await blood c/s result. Repeat BC am Vancomycin theraputic Echocardiogram Will likely need catheter removal
[2017-04-02 11:46] LABS: CREATININE 1.8 mg/dL (0.7-1.3)
--- NOTE | 2017-04-02 16:01 | PN ---
Progress Note, Physician History of Present Illness: Pt seen and examined at bedside. He is awake and alert. He tolerated HD today. - Current Medication List Current Medications: Active Medications Apixaban (Eliquis -) 2.5 mg PO BID [facility] Last Admin: 04/02/17 09:23 Dose: Not Given Aspirin (Asa -) 81 mg PO DAILY [facility] Last Admin: 04/02/17 09:23 Dose: Not Given Atorvastatin Calcium (Lipitor -) 20 mg PO HS [facility] Last Admin: 04/01/17 21:36 Dose: 20 mg Carvedilol (Coreg -) 12.5 mg PO BID [facility] Last Admin: 04/02/17 09:23 Dose: Not Given Cyclobenzaprine HCl (Flexeril -) 10 mg PO Q8H PRN PRN Reason: ARM PAIN Last Admin: 04/01/17 13:32 Dose: 10 mg Gabapentin (Neurontin -) 100 mg PO DAILY [facility] Last Admin: 04/02/17 09:23 Dose: Not Given Hydralazine HCl (Apresoline -) 50 mg PO BID [facility] Last Admin: 04/02/17 09:22 Dose: Not Given Piperacillin Sod/Tazobactam Sod (Zosyn 2.25gm Ivpb (Pre-Docked)) 50 mls @ 100 mls/hr IVPB Q8H-IV [facility] PRN Reason: Protocol Last Admin: 04/02/17 09:23 Dose: Not Given Insulin Aspart (Novolog Vial Sliding Scale -) 1 vial SQ ACHS [facility] PRN Reason: Protocol Last Admin: 04/02/17 11:42 Dose: Not Given Isosorbide Mononitrate (Imdur -) 30 mg PO DAILY [facility] Last Admin: 04/02/17 09:23 Dose: Not Given Pantoprazole Sodium (Protonix -) 40 mg PO BID [facility] Last Admin: 04/02/17 09:23 Dose: Not Given Sevelamer Carbonate (Renvela -) 800 mg PO TIDCM [facility] Last Admin: 04/02/17 13:22 Dose: Not Given Sodium Chloride (Normal Saline -) 250 ml IV Q20M PRN PRN Reason: MAP<65mm Hg OR SBP <90 Tamsulosin HCl (Flomax -) 0.4 mg PO DAILY@0830 [facility] Last Admin: 04/02/17 09:22 Dose: Not Given Tramadol HCl (Ultram -) 50 mg PO Q8H PRN PRN Reason: PAIN Last Admin: 04/02/17 09:14 Dose: 50 mg - Objective Vital Signs: Vital Signs Temperature 98.4 F 04/02/17 15:00 Pulse Rate 69 04/02/17 15:00 Respiratory Rate 30 H 04/02/17 15:00 Blood Pressure 117/52 04/02/17 15:00 O2 Sat by Pulse Oximetry (%) 98 04/02/17 09:00 Constitutional: Yes: Calm Eyes: Yes: Conjunctiva Clear HENT: Yes: Atraumatic Neck: Yes: Supple Cardiovascular: Yes: S1, S2 Respiratory: Yes: CTA Bilaterally Gastrointestinal: Yes: Normal Bowel Sounds, Soft Genitourinary: Yes: WNL Edema: Yes Edema: LUE: 1+, RUE: 1+ Neurological: Yes: Oriented Psychiatric: Yes: Oriented Labs: CBC, BMP 04/02/17 07:05 04/02/17 10:10 INR, PTT INR 1.26 (0.82-1.09) H 03/31/17 19:00 Problem List - Problems (1) BPH (benign prostatic hypertrophy) Code(s): N40.0 - BENIGN PROSTATIC HYPERPLASIA WITHOUT LOWER URINRY TRACT SYMP (2) Chronic pain disorder Code(s): G89.4 - CHRONIC PAIN SYNDROME (3) Diabetes Code(s): E11.9 - TYPE 2 DIABETES MELLITUS WITHOUT COMPLICATIONS (4) ESRD (end stage renal disease) on dialysis Code(s): N18.6 - END STAGE RENAL DISEASE Z99.2 - DEPENDENCE ON RENAL DIALYSIS Assessment/Plan Current Medications Generic Name Dose Route Start Last Admin Trade Name Jaxonq PRN Reason Stop Dose Admin Apixaban 2.5 mg 03/31/17 22:00 04/02/17 09:23 Eliquis - PO Not Given BID [facility] Aspirin 81 mg 04/01/17 10:00 04/02/17 09:23 Asa - PO Not Given DAILY [facility] Atorvastatin Calcium 20 mg 03/31/17 22:00 04/01/17 21:36 Lipitor - PO 20 mg HS [facility] Administration Carvedilol 12.5 mg 03/31/17 22:00 04/02/17 09:23 Coreg - PO Not Given BID [facility] Cyclobenzaprine HCl 10 mg 03/31/17 21:59 04/01/17 13:32 Flexeril - PO 10 mg Q8H PRN Administration ARM PAIN Gabapentin 100 mg 04/01/17 10:00 04/02/17 09:23 Neurontin - PO Not Given DAILY [facility] Hydralazine HCl 50 mg 03/31/17 22:00 04/02/17 09:22 Apresoline - PO Not Given BID [facility] Piperacillin Sod/Tazobactam Sod 50 mls @ 100 mls/hr 04/01/17 13:00 04/02/17 09: 23 Zosyn 2.25gm Ivpb (Pre-Docked) IVPB Not Given Q8H-IV [facility] Protocol Insulin Aspart 1 vial 03/31/17 22:00 04/02/17 11:42 Novolog Vial Sliding Scale - SQ Not Given ACHS [facility] Protocol Isosorbide Mononitrate 30 mg 04/01/17 10:00 04/02/17 09:23 Imdur - PO Not Given DAILY [facility] Pantoprazole Sodium 40 mg 03/31/17 22:00 04/02/17 09:23 Protonix - PO Not Given BID [facility] Sevelamer Carbonate 800 mg 04/01/17 08:00 04/02/17 13:22 Renvela - PO Not Given TIDCM [facility] Sodium Chloride 250 ml 03/31/17 18:52 Normal Saline - IV Q20M PRN MAP<65mm Hg OR SBP <90 Tamsulosin HCl 0.4 mg 04/01/17 08:30 04/02/17 09:22 Flomax - PO Not Given DAILY@0830 [facility] Tramadol HCl 50 mg 04/01/17 15:46 04/02/17 09:14 Ultram - PO 50 mg Q8H PRN Administration PAIN Impression 1. ESRD 2. CAD 3. HTN 4. narcotic dependence 5. non compliance 6. pleural effusions 7. anemia 8. chest pain 9. DVT 10. hx GI bleed Plan - pt tolerated HD today - ID input appreciated, pt may need catheter removal - vascular surgery eval - follow blood cultures - monitor blood pressure - will follow Dr Campos
[2017-04-02] MEDS ORDERED: PIPERACILLIN/TAZOB 3.375 GM 50 ML IVPB ONE (16:33)
[2017-04-02] MEDS: ATORVASTATIN CA 20 MG TABLET (FP) PO SCH (22:06)
[2017-04-03] MEDS: PIPERACILLIN/TAZOB 2.25 GM 50 ML IVPB SCH ×2 (01:37→09:14)
[2017-04-03] MEDS: INSULIN SLIDING SCALE (NOVOLOG) 1 VIAL SQ SCH ×4 (06:55→22:34)
[2017-04-03 08:01] LABS: MCH 29.2 pg (25.7-33.7); MCHC 32.2 g/dl (32.0-35.9); MEAN CELL VOLUME 90.8 fl (80-96); MEAN PLT VOLUME 8.8 fl (7.5-11.1); PLATELET COUNT 142 K/MM3 (134-434); RDW 16.3 % (11.9-15.9); WHITE BLOOD COUNT 5.3 K/mm3 (4.0-10.0)
[2017-04-03 08:03] LABS: ALBUMIN 2.9 g/dl (3.4-5.0); ANION GAP 10 (8-16); C-REACTIVE PROTEIN 10.4 MG/DL (0.00-0.3); CO2 31 mmol/L (21-32); CREATININE 3.8 mg/dL (0.7-1.3); GLUCOSE,RANDOM 103 mg/dL (74-106); SGOT/AST 13 U/L (15-37); SGPT/ALT 13 U/L (12-78)
[2017-04-03 08:06] LABS: ALK PHOS 158 U/L (45-117); BILIRUBIN,TOTAL 0.5 mg/dL (0.2-1.0); TOT PROT 7.2 g/dl (6.4-8.2)
[2017-04-03] MEDS: CYCLOBENZAPRINE HCL 10 MG TABLET (FP) PO PRN ×2 (09:14→21:25)
[2017-04-03] MEDS: SEVELAMER CARBONATE 800 MG TAB (FP) PO SCH ×3 (09:14→16:48)
[2017-04-03] MEDS: APIXABAN 2.5 MG TABLET PO SCH ×2 (09:14→21:25)
[2017-04-03] MEDS: CARVEDILOL 12.5 MG TABLET (FP) PO SCH ×2 (09:15→21:25)
[2017-04-03] MEDS: hydrALAZINE HCL 25 MG TABLET (FP) PO SCH ×2 (09:15→21:25)
[2017-04-03] MEDS: ASPIRIN 81 MG CHEWABLE TABLETS PO SCH (09:15)
[2017-04-03] MEDS: TAMSULOSIN HCL 0.4 MG CAP.ER.24H (FP) PO SCH (09:15)
[2017-04-03] MEDS: PANTOPRAZOLE 40 MG TABLET (FP) PO SCH ×2 (09:15→21:25)
[2017-04-03] MEDS: ISOSORBIDE MONONITRATE 30 MG TAB.SR.24H (FP) PO SCH (09:15)
[2017-04-03] MEDS: GABAPENTIN 100 MG CAPSULE (FP) PO SCH (09:15)
--- NOTE | 2017-04-03 11:03 | PN ---
Progress Note, Physician History of Present Illness: Pt seen and examined at bedside. He is awake and appears comfortable. He denies shortness of breath. - Current Medication List Current Medications: Active Medications Apixaban (Eliquis -) 2.5 mg PO BID [facility] Last Admin: 04/03/17 09:14 Dose: 2.5 mg Aspirin (Asa -) 81 mg PO DAILY [facility] Last Admin: 04/03/17 09:15 Dose: 81 mg Atorvastatin Calcium (Lipitor -) 20 mg PO HS [facility] Last Admin: 04/02/17 22:06 Dose: 20 mg Carvedilol (Coreg -) 12.5 mg PO BID [facility] Last Admin: 04/03/17 09:15 Dose: 12.5 mg Cyclobenzaprine HCl (Flexeril -) 10 mg PO Q8H PRN PRN Reason: ARM PAIN Last Admin: 04/03/17 09:14 Dose: 10 mg Gabapentin (Neurontin -) 100 mg PO DAILY [facility] Last Admin: 04/03/17 09:15 Dose: 100 mg Hydralazine HCl (Apresoline -) 50 mg PO BID [facility] Last Admin: 04/03/17 09:15 Dose: 50 mg Piperacillin Sod/Tazobactam Sod (Zosyn 2.25gm Ivpb (Pre-Docked)) 50 mls @ 100 mls/hr IVPB Q8H-IV [facility] PRN Reason: Protocol Last Admin: 04/03/17 09:14 Dose: 100 mls/hr Insulin Aspart (Novolog Vial Sliding Scale -) 1 vial SQ ACHS [facility] PRN Reason: Protocol Last Admin: 04/03/17 06:55 Dose: Not Given Isosorbide Mononitrate (Imdur -) 30 mg PO DAILY [facility] Last Admin: 04/03/17 09:15 Dose: 30 mg Pantoprazole Sodium (Protonix -) 40 mg PO BID [facility] Last Admin: 04/03/17 09:15 Dose: 40 mg Sevelamer Carbonate (Renvela -) 800 mg PO TIDCM [facility] Last Admin: 04/03/17 09:14 Dose: 800 mg Sodium Chloride (Normal Saline -) 250 ml IV Q20M PRN PRN Reason: MAP<65mm Hg OR SBP <90 Tamsulosin HCl (Flomax -) 0.4 mg PO DAILY@0830 [facility] Last Admin: 04/03/17 09:15 Dose: 0.4 mg Tramadol HCl (Ultram -) 50 mg PO Q8H PRN PRN Reason: PAIN Last Admin: 04/02/17 22:06 Dose: 50 mg - Objective Vital Signs: Vital Signs Temperature 97.9 F 04/03/17 07:00 Pulse Rate 64 04/03/17 07:00 Respiratory Rate 18 04/03/17 08:39 Blood Pressure 115/59 04/03/17 07:00 O2 Sat by Pulse Oximetry (%) 95 04/03/17 08:39 Constitutional: Yes: Calm Eyes: Yes: Conjunctiva Clear HENT: Yes: Atraumatic Neck: Yes: Supple Cardiovascular: Yes: S1, S2 Respiratory: Yes: CTA Bilaterally Gastrointestinal: Yes: Normal Bowel Sounds, Soft Edema: Yes Edema: LUE: 1+, RUE: 1+ Neurological: Yes: Oriented Labs: CBC, BMP 04/03/17 06:00 04/03/17 06:00 INR, PTT INR 1.26 (0.82-1.09) H 03/31/17 19:00 Problem List - Problems (1) BPH (benign prostatic hypertrophy) Code(s): N40.0 - BENIGN PROSTATIC HYPERPLASIA WITHOUT LOWER URINRY TRACT SYMP (2) Chronic pain disorder Code(s): G89.4 - CHRONIC PAIN SYNDROME (3) Diabetes Code(s): E11.9 - TYPE 2 DIABETES MELLITUS WITHOUT COMPLICATIONS (4) ESRD (end stage renal disease) on dialysis Code(s): N18.6 - END STAGE RENAL DISEASE Z99.2 - DEPENDENCE ON RENAL DIALYSIS Assessment/Plan Current Medications Generic Name Dose Route Start Last Admin Trade Name Mary PRN Reason Stop Dose Admin Apixaban 2.5 mg 03/31/17 22:00 04/03/17 09:14 Eliquis - PO 2.5 mg BID [facility] Administration Aspirin 81 mg 04/01/17 10:00 04/03/17 09:15 Asa - PO 81 mg DAILY [facility] Administration Atorvastatin Calcium 20 mg 03/31/17 22:00 04/02/17 22:06 Lipitor - PO 20 mg HS [facility] Administration Carvedilol 12.5 mg 03/31/17 22:00 04/03/17 09:15 Coreg - PO 12.5 mg BID [facility] Administration Cyclobenzaprine HCl 10 mg 03/31/17 21:59 04/03/17 09:14 Flexeril - PO 10 mg Q8H PRN Administration ARM PAIN Gabapentin 100 mg 04/01/17 10:00 04/03/17 09:15 Neurontin - PO 100 mg DAILY [facility] Administration Hydralazine HCl 50 mg 03/31/17 22:00 04/03/17 09:15 Apresoline - PO 50 mg BID [facility] Administration Piperacillin Sod/Tazobactam Sod 50 mls @ 100 mls/hr 04/01/17 13:00 04/03/17 09: 14 Zosyn 2.25gm Ivpb (Pre-Docked) IVPB 100 mls/hr Q8H-IV [facility] Administration Protocol Insulin Aspart 1 vial 03/31/17 22:00 04/03/17 06:55 Novolog Vial Sliding Scale - SQ Not Given ACHS [facility] Protocol Isosorbide Mononitrate 30 mg 04/01/17 10:00 04/03/17 09:15 Imdur - PO 30 mg DAILY [facility] Administration Pantoprazole Sodium 40 mg 03/31/17 22:00 04/03/17 09:15 Protonix - PO 40 mg BID [facility] Administration Sevelamer Carbonate 800 mg 04/01/17 08:00 04/03/17 09:14 Renvela - PO 800 mg TIDCM [facility] Administration Sodium Chloride 250 ml 03/31/17 18:52 Normal Saline - IV Q20M PRN MAP<65mm Hg OR SBP <90 Tamsulosin HCl 0.4 mg 04/01/17 08:30 04/03/17 09:15 Flomax - PO 0.4 mg DAILY@0830 [facility] Administration Tramadol HCl 50 mg 04/01/17 15:46 04/02/17 22:06 Ultram - PO 50 mg Q8H PRN Administration PAIN Impression 1. ESRD 2. CAD 3. HTN 4. narcotic dependence 5. non compliance 6. pleural effusions 7. anemia 8. chest pain 9. DVT 10. hx GI bleed Plan - blood cultures are positive for coag neg staph - case discussed with ID and with vascular surgery - pt will have permacath removed tomorrow - will arrange for HD in am - follow repeat blood cultures - monitor blood pressure - will follow Dr Campos
--- NOTE | 2017-04-03 12:15 | PN ---
Progress Note, Physician History of Present Illness: Awake, responsive Complains of generalized body pain Temps down. Afebrile Repeat BC pending - Current Medication List Current Medications: Active Medications Apixaban (Eliquis -) 2.5 mg PO BID [facility] Last Admin: 04/03/17 09:14 Dose: 2.5 mg Aspirin (Asa -) 81 mg PO DAILY [facility] Last Admin: 04/03/17 09:15 Dose: 81 mg Atorvastatin Calcium (Lipitor -) 20 mg PO HS [facility] Last Admin: 04/02/17 22:06 Dose: 20 mg Carvedilol (Coreg -) 12.5 mg PO BID [facility] Last Admin: 04/03/17 09:15 Dose: 12.5 mg Cyclobenzaprine HCl (Flexeril -) 10 mg PO Q8H PRN PRN Reason: ARM PAIN Last Admin: 04/03/17 09:14 Dose: 10 mg Epoetin Devin (Procrit -) 3,000 unit IVPUSH ONCE ONE Stop: 04/04/17 11:05 Gabapentin (Neurontin -) 100 mg PO DAILY [facility] Last Admin: 04/03/17 09:15 Dose: 100 mg Hydralazine HCl (Apresoline -) 50 mg PO BID [facility] Last Admin: 04/03/17 09:15 Dose: 50 mg Piperacillin Sod/Tazobactam Sod (Zosyn 2.25gm Ivpb (Pre-Docked)) 50 mls @ 100 mls/hr IVPB Q8H-IV [facility] PRN Reason: Protocol Last Admin: 04/03/17 09:14 Dose: 100 mls/hr Insulin Aspart (Novolog Vial Sliding Scale -) 1 vial SQ ACHS [facility] PRN Reason: Protocol Last Admin: 04/03/17 06:55 Dose: Not Given Isosorbide Mononitrate (Imdur -) 30 mg PO DAILY [facility] Last Admin: 04/03/17 09:15 Dose: 30 mg Pantoprazole Sodium (Protonix -) 40 mg PO BID [facility] Last Admin: 04/03/17 09:15 Dose: 40 mg Sevelamer Carbonate (Renvela -) 800 mg PO TIDCM [facility] Last Admin: 04/03/17 09:14 Dose: 800 mg Sodium Chloride (Normal Saline -) 250 ml IV Q20M PRN PRN Reason: MAP<65mm Hg OR SBP <90 Tamsulosin HCl (Flomax -) 0.4 mg PO DAILY@0830 [facility] Last Admin: 04/03/17 09:15 Dose: 0.4 mg Tramadol HCl (Ultram -) 50 mg PO Q8H PRN PRN Reason: PAIN Last Admin: 04/02/17 22:06 Dose: 50 mg - Objective Vital Signs: Vital Signs Temperature 97.8 F 04/03/17 11:30 Pulse Rate 64 04/03/17 11:30 Respiratory Rate 18 04/03/17 11:30 Blood Pressure 117/68 04/03/17 11:30 O2 Sat by Pulse Oximetry (%) 95 04/03/17 08:39 Constitutional: Yes: No Distress Eyes: Yes: Conjunctiva Clear Cardiovascular: Yes: Regular Rate and Rhythm, S1, S2. No: Murmur Respiratory: Yes: CTA Bilaterally Gastrointestinal: Yes: Normal Bowel Sounds, Soft. No: Tenderness Edema: No Integumentary: Yes: Other (dialysis catheter site no erythema/tenderness) Labs: CBC, BMP 04/03/17 06:00 04/03/17 06:00 INR, PTT INR 1.26 (0.82-1.09) H 03/31/17 19:00 Assessment/Plan Staph bacteremia/ sepsis possible catheter-related bacteremia ESRD Repeat BC pending vancomycin theraputic Echocardiogram cannot R/O vegetation For catheter removal. Discussed with Nephrology
[2017-04-03] MEDS: traMADol HCL 50 MG TABLET PO PRN ×2 (12:56→21:25)
--- NOTE | 2017-04-03 13:35 | PN ---
Progress Note (short form) - Note Progress Note: Subjective: The patient was seen and examined at the bedside, he has no complaints at this time Current Medications Generic Name Dose Route Start Last Admin Trade Name Mary PRN Reason Stop Dose Admin Apixaban 2.5 mg 03/31/17 22:00 04/03/17 09:14 Eliquis - PO 2.5 mg BID NGOC Administration Aspirin 81 mg 04/01/17 10:00 04/03/17 09:15 Asa - PO 81 mg DAILY NGOC Administration Atorvastatin Calcium 20 mg 03/31/17 22:00 04/02/17 22:06 Lipitor - PO 20 mg HS NGOC Administration Carvedilol 12.5 mg 03/31/17 22:00 04/03/17 09:15 Coreg - PO 12.5 mg BID NGOC Administration Cyclobenzaprine HCl 10 mg 03/31/17 21:59 04/03/17 09:14 Flexeril - PO 10 mg Q8H PRN Administration ARM PAIN Epoetin Devin 3,000 unit 04/04/17 11:04 Procrit - IVPUSH 04/04/17 11:05 ONCE ONE Gabapentin 100 mg 04/01/17 10:00 04/03/17 09:15 Neurontin - PO 100 mg DAILY NGOC Administration Hydralazine HCl 50 mg 03/31/17 22:00 04/03/17 09:15 Apresoline - PO 50 mg BID NGOC Administration Insulin Aspart 1 vial 03/31/17 22:00 04/03/17 12:35 Novolog Vial Sliding Scale - SQ Not Given ACHS NGOC Protocol Isosorbide Mononitrate 30 mg 04/01/17 10:00 04/03/17 09:15 Imdur - PO 30 mg DAILY NGOC Administration Pantoprazole Sodium 40 mg 03/31/17 22:00 04/03/17 09:15 Protonix - PO 40 mg BID NGOC Administration Sevelamer Carbonate 800 mg 04/01/17 08:00 04/03/17 12:35 Renvela - PO 800 mg TIDCM NGOC Administration Sodium Chloride 250 ml 03/31/17 18:52 Normal Saline - IV Q20M PRN MAP<65mm Hg OR SBP <90 Tamsulosin HCl 0.4 mg 04/01/17 08:30 04/03/17 09:15 Flomax - PO 0.4 mg DAILY@0830 NGOC Administration Tramadol HCl 50 mg 04/01/17 15:46 04/03/17 12:56 Ultram - PO 50 mg Q8H PRN Administration PAIN Objective: Vital Signs Period Temp Pulse Resp BP Sys/Hinds Pulse Ox Last 24 Hr 97.5 F-99.4 F 63-69 18-30 103-117/49-70 95-96 Physical Exam: General: NAD Patient refused exam Ext: LUE visibly edematous CBCD WBC 5.3 K/mm3 (4.0-10.0) 04/03/17 06:00 RBC 3.76 M/mm3 (4.00-5.60) L 04/03/17 06:00 Hgb 11.0 GM/dL (11.7-16.9) L D 04/03/17 06:00 Hct 34.1 % (35.4-49) L D 04/03/17 06:00 MCV 90.8 fl (80-96) 04/03/17 06:00 MCHC 32.2 g/dl (32.0-35.9) 04/03/17 06:00 RDW 16.3 % (11.9-15.9) H 04/03/17 06:00 Plt Count 142 K/MM3 (134-434) 04/03/17 06:00 MPV 8.8 fl (7.5-11.1) 04/03/17 06:00 CMP Sodium 143 mmol/L (136-145) 04/03/17 06:00 Potassium 3.8 mmol/L (3.5-5.1) 04/03/17 06:00 Chloride 102 mmol/L (98-107) 04/03/17 06:00 Carbon Dioxide 31 mmol/L (21-32) 04/03/17 06:00 Anion Gap 10 (8-16) 04/03/17 06:00 BUN 21 mg/dL (7-18) H D 04/03/17 06:00 Creatinine 3.8 mg/dL (0.7-1.3) H D 04/03/17 06:00 Creat Clearance w eGFR 15.97 (>60) 04/03/17 06:00 Random Glucose 103 mg/dL (74-106) D 04/03/17 06:00 Calcium 9.0 mg/dL (8.5-10.1) 04/03/17 06:00 Total Bilirubin 0.5 mg/dL (0.2-1.0) 04/03/17 06:00 AST 13 U/L (15-37) L 04/03/17 06:00 ALT 13 U/L (12-78) 04/03/17 06:00 Alkaline Phosphatase 158 U/L (45-117) H D 04/03/17 06:00 Total Protein 7.2 g/dl (6.4-8.2) 04/03/17 06:00 Albumin 2.9 g/dl (3.4-5.0) L 04/03/17 06:00 CARDIAC ENZYMES Creatine Kinase 87 IU/L (39-308) 03/31/17 19:00 Troponin I 0.02 ng/ml (0.00-0.05) 04/01/17 06:05 Microbiology 03/31/17 19:10 Blood - Peripheral Venous Blood Culture - Preliminary Staphylococcus Coagulase Neg 03/31/17 19:00 Blood - Peripheral Venous Blood Culture - Preliminary Staphylococcus Coagulase Neg 03/31/17 21:41 Urine - Urine - Catheterized Urine Culture - Final 04/01/17 14:20 Nasopharyngeal Swab Influenza Types A,B Antigen (NAVID) - Final 04/01/17 14:20 Nasopharyngeal Swab - Final Assessment: 65 year old male with ESRD- HD (,,Thu), CHF, CABG, PM, DM, 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 Diffuse soft tissue edema in the left arm including elbow without evidence of fluid collection - Left arm elevation 4) Cardiology: HTN - Continue Coreg - Continue Hydralazine CAD s/p stenting - Continue Imdur - Continue ASA Chest Pain - Resolved - Trop x3 negative HLD - Continue Lipitor 5) Endocrine: DM - BGM ACHS - ISS ACHS 6) F/E/N: - Renal diabetic diet - Monitor electrolytes 7) Prophylaxis: - On Eliquis 8) Dispo: - Requires continued inpatient care CODE STATUS: FULL CODE Visit type - Emergency Visit Emergency Visit: Yes ED Registration Date: 03/31/17 Care time: The patient presented to the Emergency Department on the above date and was hospitalized for further evaluation of their emergent condition. - New Patient This patient is new to me today: No - Critical Care Critical Care patient: No
--- NOTE | 2017-04-03 17:05 | CON.CARD ---
Consult Reason for Consultation:: Staphylococcus coag neg bacteremia r/o IE - History of Present Illness History of Present Illness: The patient is a 66 year old male, with a significant past medical history of anemia, hypertension, hypercholesterolemia, CVA, DVT, CAD s/p CABG, pacemaker and stents, CHF, DM, ESRD (dialysis T,R,S), enlarged prostate and anxiety, who presents to the emergency department via ems for lightheadedness today and altered mental status. As per ems, the patient and his were not offering any pertinent information regarding the patients current symptoms. It is also unclear if the patient received hemodialysis today as scheduled. He denies chest pain, shortness of breath, headache and dizziness. He denies fever, chills, nausea, vomit, diarrhea and constipation. He denies dysuria, frequency, urgency and hematuria. Allergies: NKDA Past surgical history: CABG. Stents. Pacemaker. Cardiac Cath. Right arm fistula Social history: No tobacco use. EtOH and recreational drug use. PCP - Dr. 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: CVA Cardio/Vascular: Yes: AFIB (paroxysmal), CAD (CABG, PCI/KAT), CHF, Deep Vein Thrombosis, HTN, Hyperlipdemia Renal/: Yes: Renal Failure, Hemodialysis Psych: Yes: Anxiety Endocrine: Yes: Diabetes Mellitus - Past Surgical History Past Surgical History: Yes: AICD, Amputation (right 3rd finger), CABG (3v CABG and mitral ring 2009 (GUADALUPE->LAD, SVG->LPL, SVG->D1 jump D2.), Stent - Alcohol/Substance Use Hx Alcohol Use: No History of Substance Use: reports: Prescription - Smoking History Smoking history: Unknown if ever smoked Have you smoked in the past 12 months: No Aproximately how many cigarettes per day: 0 If you are a former smoker, when did you quit?: 2013 - Social History Usual Living Arrangement: With Spouse ADL: Independent History of Recent Travel: No Home Medications - Allergies Allergies/Adverse Reactions: Allergies Allergy/AdvReac Type Severity Reaction Status Date / Time No Known Drug Allergies Allergy Verified 03/31/17 18:53 - Home Medications Home Medications: Ambulatory Orders Apixaban [Eliquis -] 2.5 mg PO BID #60 tablet 12/07/16 Aspirin [ASA -] 81 mg PO DAILY #0 tab.chew 12/07/16 Atorvastatin Ca [Lipitor] 20 mg PO HS #0 tablet 12/07/16 Carvedilol [Coreg -] 12.5 mg PO BID #60 tablet 12/07/16 Gabapentin [Neurontin -] 100 mg PO DAILY #0 capsule 12/07/16 Hydralazine HCl [Apresoline -] 50 mg PO BID #0 tablet 12/07/16 Isosorbide Mononitrate [Imdur -] 30 mg PO DAILY #0 tab.sr.24h 12/07/16 Pantoprazole Sodium [Protonix -] 40 mg PO BID #0 tablet.ec 12/07/16 Sevelamer Carbonate [Renvela -] 800 mg PO TIDCM #0 tab 12/07/16 Tamsulosin HCl [Flomax -] 0.4 mg PO DAILY@0830 #0 cap.er.24h 12/07/16 Cyclobenzaprine HCl [Flexeril 10 mg] 10 mg PO Q8H PRN #12 tablet 02/12/17 Family Disease History - Family Disease History Family Disease History: Diabetes: Brother, Heart Disease: Brother, Other: Father (Stroke) Review of Systems - Review of Systems Constitutional: reports: No Symptoms Eyes: reports: No Symptoms HENT: reports: No Symptoms Neck: reports: No Symptoms Cardiovascular: reports: No Symptoms Gastrointestinal: reports: No Symptoms Genitourinary: reports: No Symptoms Breasts: reports: No Symptoms Reported Musculoskeletal: reports: No Symptoms Integumentary: reports: No Symptoms Neurological: reports: No Symptoms Endocrine: reports: No Symptoms Hematology/Lymphatic: reports: No Symptoms Psychiatric: reports: No Symptoms Vital Signs: Vital Signs Temperature 97.9 F 04/03/17 14:00 Pulse Rate 60 04/03/17 14:00 Respiratory Rate 20 04/03/17 14:00 Blood Pressure 112/51 04/03/17 14:00 O2 Sat by Pulse Oximetry (%) 95 04/03/17 08:39 Constitutional: Yes: Well Nourished, No Distress, Calm Eyes: Yes: WNL, Conjunctiva Clear, EOM Intact HENT: Yes: WNL, Atraumatic, Normocephalic Neck: Yes: WNL, Supple, Trachea Midline Respiratory: Yes: WNL, Regular, CTA Bilaterally Gastrointestinal: Yes: WNL, Normal Bowel Sounds Renal/: Yes: WNL Cardiovascular: Yes: WNL, Regular Rate and Rhythm Musculoskeletal: Yes: WNL Extremities: Yes: WNL Integumentary: Yes: WNL Neurological: Yes: WNL, Alert, Oriented ...Motor Strength: WNL Psychiatric: Yes: WNL, Alert, Oriented - Other Data Labs, Other Data: CBC, BMP 04/03/17 06:00 04/03/17 06:00 INR, PTT INR 1.26 (0.82-1.09) H 03/31/17 19:00 Laboratory Tests 03/31/17 03/31/17 03/31/17 18:56 18:56 19:00 WBC 9.4 D RBC 3.52 L Hgb 10.2 L D Hct 31.6 L MCV 89.9 MCHC 32.3 RDW 16.4 H Plt Count 171 D MPV 8.4 D Neutrophils % 83.4 H Lymphocytes % 3.6 L D Monocytes % 11.5 H Eosinophils % 0.9 Basophils % 0.6 ESR INR PTT (Actin FS) VBG pH POC VBG pCO2 POC VBG pO2 Mixed VBG HCO3 Sodium Potassium Chloride Carbon Dioxide Anion Gap BUN Creatinine Creat Clearance w eGFR POC Glucometer Random Glucose Lactic Acid Calcium Phosphorus Magnesium Total Bilirubin AST ALT Alkaline Phosphatase Creatine Kinase Troponin I C-Reactive Protein Total Protein Albumin Urine Color Yellow Urine Appearance Clear Urine pH 6.0 D Ur Specific [place] 1.020 Urine Protein 2+ H Urine Glucose (UA) Negative Urine Ketones Negative Urine Blood 1+ H Urine Nitrite Negative Urine Bilirubin Negative Urine Urobilinogen Negative Ur Leukocyte Esterase 1+ H Urine RBC 9 Urine WBC 10 Ur Epithelial Cells Rare Urine Bacteria Rare Hyaline Casts 1 Urine Mucus Rare Stool Occult Blood Random Vancomycin Vancomycin Pre-Dose Hepatitis A Ab Total Hep Bs Antigen Hep Bs Antibody Hep B Core Total Ab Hepatitis C Antibody Blood Type O POSITIVE Antibody Screen Negative 03/31/17 03/31/17 03/31/17 19:00 19:00 19:00 WBC RBC Hgb Hct MCV MCHC RDW Plt Count MPV Neutrophils % Lymphocytes % Monocytes % Eosinophils % Basophils % ESR INR 1.26 H PTT (Actin FS) 41.2 H VBG pH POC VBG pCO2 POC VBG pO2 Mixed VBG HCO3 Sodium 137 Potassium 3.9 Chloride 100 Carbon Dioxide 28 Anion Gap 9 BUN 22 H Creatinine 3.8 H Creat Clearance w eGFR 15.97 POC Glucometer Random Glucose 124 H D Lactic Acid 1.1 Calcium 8.7 Phosphorus Magnesium Total Bilirubin 0.7 D AST 18 D ALT 16 Alkaline Phosphatase 160 H Creatine Kinase 87 Troponin I < 0.02 D C-Reactive Protein Total Protein 7.3 Albumin 3.0 L Urine Color Urine Appearance Urine pH Ur Specific [place] Urine Protein Urine Glucose (UA) Urine Ketones Urine Blood Urine Nitrite Urine Bilirubin Urine Urobilinogen Ur Leukocyte Esterase Urine RBC Urine WBC Ur Epithelial Cells Urine Bacteria Hyaline Casts Urine Mucus Stool Occult Blood Random Vancomycin Vancomycin Pre-Dose Hepatitis A Ab Total Hep Bs Antigen Hep Bs Antibody Hep B Core Total Ab Hepatitis C Antibody Blood Type Antibody Screen 03/31/17 03/31/17 03/31/17 19:10 19:19 22:24 WBC RBC Hgb Hct MCV MCHC RDW Plt Count MPV Neutrophils % Lymphocytes % Monocytes % Eosinophils % Basophils % ESR INR PTT (Actin FS) VBG pH 7.42 POC VBG pCO2 44.1 D POC VBG pO2 34.9 D Mixed VBG HCO3 28.0 H Sodium Potassium Chloride Carbon Dioxide Anion Gap BUN Creatinine Creat Clearance w eGFR POC Glucometer [phone] Random Glucose Lactic Acid Calcium Phosphorus Magnesium Total Bilirubin AST ALT Alkaline Phosphatase Creatine Kinase Troponin I C-Reactive Protein Total Protein Albumin Urine Color Urine Appearance Urine pH Ur Specific [place] Urine Protein Urine Glucose (UA) Urine Ketones Urine Blood Urine Nitrite Urine Bilirubin Urine Urobilinogen Ur Leukocyte Esterase Urine RBC Urine WBC Ur Epithelial Cells Urine Bacteria Hyaline Casts Urine Mucus Stool Occult Blood Negative Random Vancomycin Vancomycin Pre-Dose Hepatitis A Ab Total Hep Bs Antigen Hep Bs Antibody Hep B Core Total Ab Hepatitis C Antibody Blood Type Antibody Screen 04/01/17 04/01/17 04/01/17 01:11 06:05 06:05 WBC 6.9 RBC 3.60 L Hgb 10.5 L Hct 32.4 L MCV 90.1 MCHC 32.4 RDW 16.7 H Plt Count 154 MPV 8.4 Neutrophils % Lymphocytes % Monocytes % Eosinophils % Basophils % ESR INR PTT (Actin FS) VBG pH POC VBG pCO2 POC VBG pO2 Mixed VBG HCO3 Sodium 137 Potassium 3.8 Chloride 99 Carbon Dioxide 29 Anion Gap 9 BUN 24 H Creatinine 4.3 H Creat Clearance w eGFR POC Glucometer Random Glucose 104 Lactic Acid Calcium 8.7 Phosphorus 4.0 Magnesium 2.1 Total Bilirubin AST ALT Alkaline Phosphatase Creatine Kinase Troponin I 0.02 C-Reactive Protein Total Protein Albumin Urine Color Urine Appearance Urine pH Ur Specific [place] Urine Protein Urine Glucose (UA) Urine Ketones Urine Blood Urine Nitrite Urine Bilirubin Urine Urobilinogen Ur Leukocyte Esterase Urine RBC Urine WBC Ur Epithelial Cells Urine Bacteria Hyaline Casts Urine Mucus Stool Occult Blood Random Vancomycin Vancomycin Pre-Dose Hepatitis A Ab Total Hep Bs Antigen Hep Bs Antibody Hep B Core Total Ab Hepatitis C Antibody Blood Type Antibody Screen 04/01/17 04/01/17 04/01/17 06:05 11:35 16:43 WBC RBC Hgb Hct MCV MCHC RDW Plt Count MPV Neutrophils % Lymphocytes % Monocytes % Eosinophils % Basophils % ESR INR PTT (Actin FS) VBG pH POC VBG pCO2 POC VBG pO2 Mixed VBG HCO3 Sodium Potassium Chloride Carbon Dioxide Anion Gap BUN Creatinine Creat Clearance w eGFR POC Glucometer [phone] Random Glucose Lactic Acid Calcium Phosphorus Magnesium Total Bilirubin AST ALT Alkaline Phosphatase Creatine Kinase Troponin I 0.02 C-Reactive Protein Total Protein Albumin Urine Color Urine Appearance Urine pH Ur Specific [place] Urine Protein Urine Glucose (UA) Urine Ketones Urine Blood Urine Nitrite Urine Bilirubin Urine Urobilinogen Ur Leukocyte Esterase Urine RBC Urine WBC Ur Epithelial Cells Urine Bacteria Hyaline Casts Urine Mucus Stool Occult Blood Random Vancomycin Vancomycin Pre-Dose Hepatitis A Ab Total Hep Bs Antigen Hep Bs Antibody Hep B Core Total Ab Hepatitis C Antibody Blood Type Antibody Screen 04/01/17 04/02/17 04/02/17 21:05 06:00 06:02 WBC RBC Hgb Hct MCV MCHC RDW Plt Count MPV Neutrophils % Lymphocytes % Monocytes % Eosinophils % Basophils % ESR INR PTT (Actin FS) VBG pH POC VBG pCO2 POC VBG pO2 Mixed VBG HCO3 Sodium Potassium Chloride Carbon Dioxide Anion Gap BUN Creatinine Creat Clearance w eGFR POC Glucometer 103 148 Random Glucose Lactic Acid Calcium Phosphorus Magnesium Total Bilirubin AST ALT Alkaline Phosphatase Creatine Kinase Troponin I C-Reactive Protein Total Protein Albumin Urine Color Urine Appearance Urine pH Ur Specific [place] Urine Protein Urine Glucose (UA) Urine Ketones Urine Blood Urine Nitrite Urine Bilirubin Urine Urobilinogen Ur Leukocyte Esterase Urine RBC Urine WBC Ur Epithelial Cells Urine Bacteria Hyaline Casts Urine Mucus Stool Occult Blood Random Vancomycin Vancomycin Pre-Dose 27.624 H* Hepatitis A Ab Total Hep Bs Antigen Hep Bs Antibody Hep B Core Total Ab Hepatitis C Antibody Blood Type Antibody Screen 0604/02/17 04/02/17 07:05 07:05 07:05 WBC 6.3 RBC 3.24 L Hgb 9.5 L Hct 29.4 L MCV 90.6 MCHC 32.2 RDW 16.5 H Plt Count 124 L MPV 8.6 Neutrophils % Lymphocytes % Monocytes % Eosinophils % Basophils % ESR INR PTT (Actin FS) VBG pH POC VBG pCO2 POC VBG pO2 Mixed VBG HCO3 Sodium 137 Potassium 3.9 Chloride 99 Carbon Dioxide 27 Anion Gap 11 BUN 40 H D Creatinine 5.8 H D Creat Clearance w eGFR 9.80 POC Glucometer Random Glucose 131 H D Lactic Acid Calcium 8.3 L Phosphorus Magnesium Total Bilirubin 0.5 D AST 13 L D ALT 12 D Alkaline Phosphatase 128 H Creatine Kinase Troponin I C-Reactive Protein Total Protein 6.2 L Albumin 2.6 L Urine Color Urine Appearance Urine pH Ur Specific [place] Urine Protein Urine Glucose (UA) Urine Ketones Urine Blood Urine Nitrite Urine Bilirubin Urine Urobilinogen Ur Leukocyte Esterase Urine RBC Urine WBC Ur Epithelial Cells Urine Bacteria Hyaline Casts Urine Mucus Stool Occult Blood Random Vancomycin Vancomycin Pre-Dose Hepatitis A Ab Total Hep Bs Antigen Hep Bs Antibody Hep B Core Total Ab Hepatitis C Antibody Cancelled Blood Type Antibody Screen 04/02/17 04/02/17 04/02/17 07:05 10:10 10:57 WBC RBC Hgb Hct MCV MCHC RDW Plt Count MPV Neutrophils % Lymphocytes % Monocytes % Eosinophils % Basophils % ESR INR PTT (Actin FS) VBG pH POC VBG pCO2 POC VBG pO2 Mixed VBG HCO3 Sodium Potassium Chloride Carbon Dioxide Anion Gap BUN 10 D Creatinine 1.8 H D Creat Clearance w eGFR POC Glucometer 178 Random Glucose Lactic Acid Calcium Phosphorus Magnesium Total Bilirubin AST ALT Alkaline Phosphatase Creatine Kinase Troponin I C-Reactive Protein Total Protein Albumin Urine Color Urine Appearance Urine pH Ur Specific [place] Urine Protein Urine Glucose (UA) Urine Ketones Urine Blood Urine Nitrite Urine Bilirubin Urine Urobilinogen Ur Leukocyte Esterase Urine RBC Urine WBC Ur Epithelial Cells Urine Bacteria Hyaline Casts Urine Mucus Stool Occult Blood Random Vancomycin Vancomycin Pre-Dose Hepatitis A Ab Total Positive Hep Bs Antigen Negative Hep Bs Antibody Non reactive Hep B Core Total Ab Negative Hepatitis C Antibody <0.1 Blood Type Antibody Screen 04/02/17 04/02/17 04/03/17 16:02 21:31 06:00 WBC RBC Hgb Hct MCV MCHC RDW Plt Count MPV Neutrophils % Lymphocytes % Monocytes % Eosinophils % Basophils % ESR INR PTT (Actin FS) VBG pH POC VBG pCO2 POC VBG pO2 Mixed VBG HCO3 Sodium Potassium Chloride Carbon Dioxide Anion Gap BUN Creatinine Creat Clearance w eGFR POC Glucometer 229 112 Random Glucose Lactic Acid Calcium Phosphorus Magnesium Total Bilirubin AST ALT Alkaline Phosphatase Creatine Kinase Troponin I C-Reactive Protein Total Protein Albumin Urine Color Urine Appearance Urine pH Ur Specific [place] Urine Protein Urine Glucose (UA) Urine Ketones Urine Blood Urine Nitrite Urine Bilirubin Urine Urobilinogen Ur Leukocyte Esterase Urine RBC Urine WBC Ur Epithelial Cells Urine Bacteria Hyaline Casts Urine Mucus Stool Occult Blood Random Vancomycin 22.418 Vancomycin Pre-Dose Hepatitis A Ab Total Hep Bs Antigen Hep Bs Antibody Hep B Core Total Ab Hepatitis C Antibody Blood Type Antibody Screen 04/03/17 04/03/17 04/03/17 06:00 06:00 06:00 WBC 5.3 RBC 3.76 L Hgb 11.0 L D Hct 34.1 L D MCV 90.8 MCHC 32.2 RDW 16.3 H Plt Count 142 MPV 8.8 Neutrophils % Lymphocytes % Monocytes % Eosinophils % Basophils % ESR 47 H INR PTT (Actin FS) VBG pH POC VBG pCO2 POC VBG pO2 Mixed VBG HCO3 Sodium 143 Potassium 3.8 Chloride 102 Carbon Dioxide 31 Anion Gap 10 BUN 21 H D Creatinine 3.8 H D Creat Clearance w eGFR 15.97 POC Glucometer Random Glucose 103 D Lactic Acid Calcium 9.0 Phosphorus Magnesium Total Bilirubin 0.5 AST 13 L ALT 13 Alkaline Phosphatase 158 H D Creatine Kinase Troponin I C-Reactive Protein 10.4 H D Total Protein 7.2 Albumin 2.9 L Urine Color Urine Appearance Urine pH Ur Specific [place] Urine Protein Urine Glucose (UA) Urine Ketones Urine Blood Urine Nitrite Urine Bilirubin Urine Urobilinogen Ur Leukocyte Esterase Urine RBC Urine WBC Ur Epithelial Cells Urine Bacteria Hyaline Casts Urine Mucus Stool Occult Blood Random Vancomycin Vancomycin Pre-Dose Hepatitis A Ab Total Hep Bs Antigen Hep Bs Antibody Hep B Core Total Ab Hepatitis C Antibody Blood Type Antibody Screen 04/03/17 04/03/17 06:29 15:35 WBC RBC Hgb Hct MCV MCHC RDW Plt Count MPV Neutrophils % Lymphocytes % Monocytes % Eosinophils % Basophils % ESR INR PTT (Actin FS) VBG pH POC VBG pCO2 POC VBG pO2 Mixed VBG HCO3 Sodium Potassium Chloride Carbon Dioxide Anion Gap BUN Creatinine Creat Clearance w eGFR POC Glucometer 100 235 Random Glucose Lactic Acid Calcium Phosphorus Magnesium Total Bilirubin AST ALT Alkaline Phosphatase Creatine Kinase Troponin I C-Reactive Protein Total Protein Albumin Urine Color Urine Appearance Urine pH Ur Specific [place] Urine Protein Urine Glucose (UA) Urine Ketones Urine Blood Urine Nitrite Urine Bilirubin Urine Urobilinogen Ur Leukocyte Esterase Urine RBC Urine WBC Ur Epithelial Cells Urine Bacteria Hyaline Casts Urine Mucus Stool Occult Blood Random Vancomycin Vancomycin Pre-Dose Hepatitis A Ab Total Hep Bs Antigen Hep Bs Antibody Hep B Core Total Ab Hepatitis C Antibody Blood Type Antibody Screen Imaging - Results Chest X-ray: Image Reviewed (chf) EKG: Image Reviewed (bivi pacing) Problem List - Problems (1) Atypical chest pain Code(s): R07.89 - OTHER CHEST PAIN (2) DVT prophylaxis Code(s): VWC7908 - (3) Fluid overload Code(s): E87.70 - FLUID OVERLOAD, UNSPECIFIED Qualifiers: Hypervolemia type: unspecified Qualified Code(s): E87.70 - Fluid overload, unspecified (4) Sepsis Code(s): A41.9 - SEPSIS, UNSPECIFIED ORGANISM Qualifiers: Sepsis type: sepsis due to unspecified organism Qualified Code(s): A41.9 - Sepsis, unspecified organism (5) Anemia Code(s): D64.9 - ANEMIA, UNSPECIFIED Qualifiers: (6) BPH (benign prostatic hypertrophy) Code(s): N40.0 - BENIGN PROSTATIC HYPERPLASIA WITHOUT LOWER URINRY TRACT SYMP (7) Chronic pain disorder Code(s): G89.4 - CHRONIC PAIN SYNDROME (8) Chronic systolic heart failure Code(s): I50.22 - CHRONIC SYSTOLIC (CONGESTIVE) HEART FAILURE (9) Coronary artery disease Code(s): I25.10 - ATHSCL HEART DISEASE OF [place] CORONARY ARTERY W/O ANG PCTRS Qualifiers: Coronary Disease-Associated Artery/Lesion type: [place] artery [place] vs. transplanted heart: [place] heart Associated angina: without angina Qualified Code(s): I25.10 - Atherosclerotic heart disease of [place] coronary artery without angina pectoris (10) DVT (deep venous thrombosis) Code(s): I82.409 - ACUTE EMBOLISM AND THOMBOS UNSP DEEP VN UNSP LOWER EXTREMITY (11) Dependency on pain medication Code(s): F19.20 - OTHER PSYCHOACTIVE SUBSTANCE DEPENDENCE, UNCOMPLICATED (12) Diabetes Code(s): E11.9 - TYPE 2 DIABETES MELLITUS WITHOUT COMPLICATIONS (13) Drug-seeking behavior Code(s): Z72.89 - OTHER PROBLEMS RELATED TO LIFESTYLE (14) ESRD (end stage renal disease) on dialysis Code(s): N18.6 - END STAGE RENAL DISEASE Z99.2 - DEPENDENCE ON RENAL DIALYSIS (15) Hip pain, left Code(s): M25.552 - PAIN IN LEFT HIP (16) History of hemiarthroplasty of left hip Code(s): Z96.642 - PRESENCE OF LEFT ARTIFICIAL HIP JOINT (17) Hx of CABG Code(s): Z95.1 - PRESENCE OF AORTOCORONARY BYPASS GRAFT (18) Hyperlipidemia Code(s): E78.5 - HYPERLIPIDEMIA, UNSPECIFIED Qualifiers: Hyperlipidemia type: pure hypercholesterolemia (19) Hypertension Code(s): I10 - ESSENTIAL (PRIMARY) HYPERTENSION Qualifiers: Hypertension type: essential hypertension Qualified Code(s): I10 - Essential (primary) hypertension (20) ICD (implantable cardioverter-defibrillator) in place Code(s): Z95.810 - PRESENCE OF AUTOMATIC (IMPLANTABLE) CARDIAC DEFIBRILLATOR (21) Noncompliance of patient with renal dialysis Code(s): Z91.15 - PATIENT'S NONCOMPLIANCE WITH RENAL DIALYSIS (22) PAD (peripheral artery disease) Code(s): I73.9 - PERIPHERAL VASCULAR DISEASE, UNSPECIFIED (23) PAF (paroxysmal atrial fibrillation) Code(s): I48.0 - PAROXYSMAL ATRIAL FIBRILLATION (24) PVD (peripheral vascular disease) Code(s): I73.9 - PERIPHERAL VASCULAR DISEASE, UNSPECIFIED (25) S/P mitral valve repair Code(s): Z98.89 - OTHER SPECIFIED POSTPROCEDURAL STATES * DO NOT USE * (26) Status post coronary artery stent placement Code(s): Z95.5 - PRESENCE OF CORONARY ANGIOPLASTY IMPLANT AND GRAFT (27) Status post percutaneous transluminal coronary angioplasty Code(s): Z98.61 - CORONARY ANGIOPLASTY STATUS (28) Type 2 diabetes mellitus Code(s): E11.9 - TYPE 2 DIABETES MELLITUS WITHOUT COMPLICATIONS Qualifiers: Diabetes mellitus complication status: with kidney complications Diabetes mellitus complication detail: with chronic kidney disease Chronic kidney disease stage: on chronic dialysis (29) Unable to ambulate Code(s): R26.2 - DIFFICULTY IN WALKING, NOT ELSEWHERE CLASSIFIED (30) Acute coronary syndrome Code(s): I24.9 - ACUTE ISCHEMIC HEART DISEASE, UNSPECIFIED (31) Chest pain of uncertain etiology Code(s): R07.89 - OTHER CHEST PAIN (32) Hyperkalemia Code(s): E87.5 - HYPERKALEMIA (33) Subtherapeutic international normalized ratio (INR) Code(s): R79.1 - ABNORMAL COAGULATION PROFILE (34) Allergy Code(s): T78.40XA - ALLERGY, UNSPECIFIED, INITIAL ENCOUNTER Qualifiers: Encounter type: initial encounter Qualified Code(s): T78.40XA - Allergy , unspecified, initial encounter (35) Arm edema Code(s): R60.0 - LOCALIZED EDEMA (36) Arm pain Code(s): M79.603 - PAIN IN ARM, UNSPECIFIED Qualifiers: Laterality: left Qualified Code(s): M79.602 - Pain in left arm (37) Chest pain Code(s): R07.9 - CHEST PAIN, UNSPECIFIED (38) End stage renal disease Code(s): N18.6 - END STAGE RENAL DISEASE (39) Fall Code(s): W19.XXXA - UNSPECIFIED FALL, INITIAL ENCOUNTER Qualifiers: Encounter type: initial encounter Qualified Code(s): W19.XXXA - Unspecified fall, initial encounter (40) Head injury Code(s): S09.90XA - UNSPECIFIED INJURY OF HEAD, INITIAL ENCOUNTER Qualifiers: Encounter type: initial encounter Qualified Code(s): S09.90XA - Unspecified injury of head, initial encounter (41) Leg pain, bilateral Code(s): M79.604 - PAIN IN RIGHT LEG M79.605 - PAIN IN LEFT LEG (42) Arm mass Code(s): R22.30 - LOCALIZED SWELLING, MASS AND LUMP, UNSPECIFIED UPPER LIMB Qualifiers: Laterality: left Qualified Code(s): R22.32 - Localized swelling, mass and lump, left upper limb (43) Edema of left forearm Code(s): R60.9 - EDEMA, UNSPECIFIED (44) Hematoma Code(s): T14.8 - OTHER INJURY OF UNSPECIFIED BODY REGION (45) Low back pain Code(s): M54.5 - LOW BACK PAIN Qualifiers: Chronicity: chronic Back pain laterality: unspecified Sciatica presence: without sciatica Qualified Code(s): M54.5 - Low back pain Assessment/Plan Staphylococcus coag neg bacteremia r/o IE anemia, hypertension, hypercholesterolemia, CVA, DVT, CAD s/p CABG, pacemaker and stents, CHF, DM, ESRD (dialysis T,R,S), enlarged prostate and anxiety Plan echo report reviewed RAZIA if indicated from ID point of view.
[2017-04-03] MEDS: ATORVASTATIN CA 20 MG TABLET (FP) PO SCH (21:25)
[2017-04-04 00:07] LABS: HEP B SURFACE AB Non Reactive (.)
[2017-04-04] MEDS: traMADol HCL 50 MG TABLET PO PRN (06:24)
[2017-04-04] MEDS: INSULIN SLIDING SCALE (NOVOLOG) 1 VIAL SQ SCH ×4 (06:25→21:34)
[2017-04-04 08:52] LABS: MCH 29.2 pg (25.7-33.7); MCHC 32.3 g/dl (32.0-35.9); MEAN CELL VOLUME 90.2 fl (80-96); MEAN PLT VOLUME 8.9 fl (7.5-11.1); PLATELET COUNT 138 K/MM3 (134-434); RDW 16.7 % (11.9-15.9); WHITE BLOOD COUNT 4.9 K/mm3 (4.0-10.0)
[2017-04-04] MEDS ORDERED: EPOETIN ALFA 3,000 UNIT/1 ML ML IVPUSH ONE (09:00)
[2017-04-04 09:14] LABS: ANION GAP 11 (8-16); CALCIUM 8.8 mg/dL (8.5-10.1); CO2 29 mmol/L (21-32); GLUCOSE,RANDOM 104 mg/dL (74-106)
--- NOTE | 2017-04-04 10:02 | PN ---
Physical Exam: SUBJECTIVE: Patient seen and examined at bedside during dialysis. He is requesting to leave today to be with his . OBJECTIVE: Vital Signs Period Temp Pulse Resp BP Sys/Hinds Pulse Ox Last 24 Hr 96.7 F-97.9 F 60-64 18-20 100-134/46-74 97 GENERAL: The patient is awake, alert, and fully oriented, in no acute distress. HEAD: Normal with no signs of trauma. EYES: PERRL, extraocular movements intact, sclera anicteric, conjunctiva clear. No ptosis. ENT: Ears normal, nares patent, oropharynx clear without exudates, moist mucous membranes. Poor dentition. NECK: Trachea midline, full range of motion, supple. LUNGS: Breath sounds equal, clear to auscultation bilaterally, no wheezes, no crackles, no accessory muscle use. HEART: Regular rate and rhythm, S1, S2. No rub or gallop. 2/6 systolic murmur at right sternal border. ABDOMEN: Soft, nontender, nondistended, normoactive bowel sounds, no guarding, no rebound, no hepatosplenomegaly, no masses. EXTREMITIES: 2+ pulses, warm, well-perfused. LUE 2+ edema. Laboratory Results - last 24 hr 3 04/02/17 04/03/17 04/03/17 07:05 06:00 15:35 WBC RBC Hgb Hct MCV MCHC RDW Plt Count MPV ESR 47 H Sodium Potassium Chloride Carbon Dioxide Anion Gap BUN Creatinine POC Glucometer 235 Random Glucose Calcium Random Vancomycin Hep A IgM Ab Confirm Negative Hepatitis A Ab Total Positive H Hep Bs Antigen Negative Hep Bs Antibody Non reactive Hep B Core Total Ab Negative Hepatitis C Antibody <0.1 3 04/03/17 04/04/17 04/04/17 21:51 05:34 07:10 WBC RBC Hgb Hct MCV MCHC RDW Plt Count MPV ESR Sodium 140 Potassium 4.2 Chloride 100 Carbon Dioxide 29 Anion Gap 11 BUN 28 H D Creatinine 5.0 H D POC Glucometer 114 113 Random Glucose 104 Calcium 8.8 Random Vancomycin Hep A IgM Ab Confirm Hepatitis A Ab Total Hep Bs Antigen Hep Bs Antibody Hep B Core Total Ab Hepatitis C Antibody 3 04/04/17 04/04/17 07:10 07:19 WBC 4.9 RBC 3.44 L Hgb 10.0 L Hct 31.0 L MCV 90.2 MCHC 32.3 RDW 16.7 H Plt Count 138 MPV 8.9 ESR Sodium Potassium Chloride Carbon Dioxide Anion Gap BUN Creatinine POC Glucometer Random Glucose Calcium Random Vancomycin 19.398 Hep A IgM Ab Confirm Hepatitis A Ab Total Hep Bs Antigen Hep Bs Antibody Hep B Core Total Ab Hepatitis C Antibody Active Medications 3 Generic Name Dose Route Start Last Admin Trade Name Freq PRN Reason Stop Dose Admin Apixaban 2.5 mg 03/31/17 22:00 04/03/17 21:25 Eliquis - PO 2.5 mg BID NGOC Administration Aspirin 81 mg 04/01/17 10:00 04/03/17 09:15 Asa - PO 81 mg DAILY NGOC Administration Atorvastatin Calcium 20 mg 03/31/17 22:00 04/03/17 21:25 Lipitor - PO 20 mg HS NGOC Administration Carvedilol 12.5 mg 03/31/17 22:00 04/03/17 21:25 Coreg - PO 12.5 mg BID NGOC Administration Cyclobenzaprine HCl 10 mg 03/31/17 21:59 04/03/17 21:25 Flexeril - PO 10 mg Q8H PRN Administration ARM PAIN Gabapentin 100 mg 04/01/17 10:00 04/03/17 09:15 Neurontin - PO 100 mg DAILY NGOC Administration Hydralazine HCl 50 mg 03/31/17 22:00 04/03/17 21:25 Apresoline - PO 50 mg BID NGOC Administration Insulin Aspart 1 vial 03/31/17 22:00 04/04/17 06:25 Novolog Vial Sliding Scale - SQ Not Given ACHS [facility] Protocol Isosorbide Mononitrate 30 mg 04/01/17 10:00 04/03/17 09:15 Imdur - PO 30 mg DAILY NGOC Administration Pantoprazole Sodium 40 mg 03/31/17 22:00 04/03/17 21:25 Protonix - PO 40 mg BID NGOC Administration Sevelamer Carbonate 800 mg 04/01/17 08:00 04/03/17 16:48 Renvela - PO 800 mg TIDCM NGOC Administration Sodium Chloride 250 ml 03/31/17 18:52 Normal Saline - IV Q20M PRN MAP<65mm Hg OR SBP <90 Tamsulosin HCl 0.4 mg 04/01/17 08:30 04/03/17 09:15 Flomax - PO 0.4 mg DAILY@0830 NGOC Administration Tramadol HCl 50 mg 04/01/17 15:46 04/04/17 06:24 Ultram - PO 50 mg Q8H PRN Administration PAIN ASSESSMENT/PLAN: A: 65 year old male with ESRD- HD (,,Thu), CHF, CABG, PM, DM, 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 Staphylococcus coag neg bacteremia - Awaiting final culture and sensitivity - Afebrile overnight - Continue Vancomycin - Continue Zosyn - ECHO cannot rule out vegetation, f/u cards consult for RAZIA - Appreciate ID consult 2. ESRD on HD - Continue HD - Appreciate nephrology consult - PC removed at bedside today 3. BPH - Continue Flomax 4. Hx of RUE DVT - Continue Eliquis 5. Chronic LUE edema: documented on or before 10/28/16 - LUE ultrasound with no evidence of DVT. Diffuse soft tissue edema in the left arm including elbow without evidence of fluid collection - Left arm elevation 6. HTN - Continue Coreg - Continue Hydralazine 7. CAD s/p stenting - Continue Imdur - Continue ASA 8. Chest Pain - Resolved - Trop x3 negative - appreciate cards 9. HLD - Continue Lipitor 10. DM - BGM ACHS - ISS ACHS 11. F/E/N - Renal diabetic diet - Monitor electrolytes 12. PPX - On Eliquis Dispo- Requires continued inpatient care CODE STATUS: FULL CODE Visit type - Emergency Visit Emergency Visit: Yes ED Registration Date: 03/31/17 Care time: The patient presented to the Emergency Department on the above date and was hospitalized for further evaluation of their emergent condition. - New Patient This patient is new to me today: Yes Date on this admission: 04/04/17 - Critical Care Critical Care patient: No
[2017-04-04] MEDS: SEVELAMER CARBONATE 800 MG TAB (FP) PO SCH ×3 (11:15→16:53)
[2017-04-04] MEDS: GABAPENTIN 100 MG CAPSULE (FP) PO SCH (11:15)
[2017-04-04] MEDS: hydrALAZINE HCL 25 MG TABLET (FP) PO SCH ×2 (11:16→21:34)
[2017-04-04] MEDS: APIXABAN 2.5 MG TABLET PO SCH ×2 (11:16→21:34)
[2017-04-04] MEDS: PANTOPRAZOLE 40 MG TABLET (FP) PO SCH ×2 (11:17→21:34)
[2017-04-04] MEDS: ASPIRIN 81 MG CHEWABLE TABLETS PO SCH (11:17)
[2017-04-04] MEDS: TAMSULOSIN HCL 0.4 MG CAP.ER.24H (FP) PO SCH (11:17)
[2017-04-04] MEDS: ISOSORBIDE MONONITRATE 30 MG TAB.SR.24H (FP) PO SCH (11:18)
[2017-04-04] MEDS: CARVEDILOL 12.5 MG TABLET (FP) PO SCH ×2 (11:18→21:34)
--- NOTE | 2017-04-04 11:20 | PN ---
Progress Note (short form) - Note Progress Note: wants to go home no complaints Vital Signs Period Temp Pulse Resp BP Sys/Hinds Pulse Ox Last 24 Hr 96.7 F-97.9 F 60-66 18-20 100-141/46-74 97-97 cor-rrr lungs clear abd soft,nt ext no edema +PC CBC, BMP 04/04/17 07:10 04/04/17 07:10 Laboratory Tests 04/04/17 07:19 Random Vancomycin 19.398 Microbiology 03/31/17 19:10 Blood - Peripheral Venous Blood Culture - Preliminary Staphylococcus Coagulase Neg 04/03/17 06:45 Blood - Peripheral Venous Blood Culture - Preliminary NO GROWTH OBTAINED AFTER 24 HOURS, INCUBATION TO CONTINUE FOR 4 DAYS. 03/31/17 19:00 Blood - Peripheral Venous Blood Culture - Preliminary Staphylococcus Coagulase Neg 03/31/17 21:41 Urine - Urine - Catheterized Urine Culture - Final 04/01/17 14:20 Nasopharyngeal Swab Influenza Types A,B Antigen (NAVID) - Final 04/01/17 14:20 Nasopharyngeal Swab - Final a/p SCN bacteremia- esrd/hd ?PC infection abnl echo r/o endocarditis for PC removal vanco trough in am RAZIA
--- NOTE | 2017-04-04 11:50 | PN ---
Progress Note, Physician History of Present Illness: Renal f/u Pt seen while on HD He is in no distress and denies any complaints - Current Medication List Current Medications: Active Medications Apixaban (Eliquis -) 2.5 mg PO BID [facility] Last Admin: 04/04/17 11:16 Dose: 2.5 mg Aspirin (Asa -) 81 mg PO DAILY [facility] Last Admin: 04/04/17 11:17 Dose: 81 mg Atorvastatin Calcium (Lipitor -) 20 mg PO HS [facility] Last Admin: 04/03/17 21:25 Dose: 20 mg Carvedilol (Coreg -) 12.5 mg PO BID [facility] Last Admin: 04/04/17 11:18 Dose: 12.5 mg Cyclobenzaprine HCl (Flexeril -) 10 mg PO Q8H PRN PRN Reason: ARM PAIN Last Admin: 04/03/17 21:25 Dose: 10 mg Gabapentin (Neurontin -) 100 mg PO DAILY [facility] Last Admin: 04/04/17 11:15 Dose: 100 mg Hydralazine HCl (Apresoline -) 50 mg PO BID [facility] Last Admin: 04/04/17 11:16 Dose: 50 mg Insulin Aspart (Novolog Vial Sliding Scale -) 1 vial SQ ACHS [facility] PRN Reason: Protocol Last Admin: 04/04/17 06:25 Dose: Not Given Isosorbide Mononitrate (Imdur -) 30 mg PO DAILY [facility] Last Admin: 04/04/17 11:18 Dose: 30 mg Pantoprazole Sodium (Protonix -) 40 mg PO BID [facility] Last Admin: 04/04/17 11:17 Dose: 40 mg Sevelamer Carbonate (Renvela -) 800 mg PO TIDCM [facility] Last Admin: 04/04/17 11:18 Dose: Not Given Sodium Chloride (Normal Saline -) 250 ml IV Q20M PRN PRN Reason: MAP<65mm Hg OR SBP <90 Tamsulosin HCl (Flomax -) 0.4 mg PO DAILY@0830 [facility] Last Admin: 04/04/17 11:17 Dose: 0.4 mg Tramadol HCl (Ultram -) 50 mg PO Q8H PRN PRN Reason: PAIN Last Admin: 04/04/17 06:24 Dose: 50 mg - Objective Vital Signs: Vital Signs Temperature 97.5 F L 04/04/17 10:00 Pulse Rate 60 04/04/17 11:00 Respiratory Rate 18 04/04/17 11:00 Blood Pressure 141/57 04/04/17 11:00 O2 Sat by Pulse Oximetry (%) 97 04/04/17 09:00 Constitutional: Yes: No Distress Cardiovascular: Yes: S1, S2 Respiratory: Yes: CTA Bilaterally Gastrointestinal: Yes: Soft. No: Tenderness, Rebound Edema: No Labs: CBC, BMP 04/04/17 07:10 04/04/17 07:10 INR, PTT INR 1.26 (0.82-1.09) H 03/31/17 19:00 Assessment/Plan Impression 1. ESRD 2. SCN Bacteremia 3. HTN 4. narcotic dependence 5. CAD 6. pleural effusions 7. anemia 8. chest pain 9. DVT 10. hx GI bleed Plan - For Perm Cath removal later today so being dialyzed heparin free - Abx as per ID and Vanco level in am Dr Ramsey
[2017-04-04] MEDS: CYCLOBENZAPRINE HCL 10 MG TABLET (FP) PO PRN ×2 (12:55→21:34)
--- NOTE | 2017-04-04 14:49 | PN ---
Progress Note (short form) - Note Progress Note: Vascular Surgery Left IJ permacath removed. No complications. Will be on stand by for new access. Clay Moore DO
--- NOTE | 2017-04-04 15:33 | PN ---
Progress Note, Physician Chief Complaint: Pt insists on going home. He denies chest pain, dyspnea, palptitations. History of Present Illness: The patient is a 66 year old male, with a significant past medical history of anemia, hypertension, hypercholesterolemia, CVA, DVT, CAD s/p CABG, pacemaker and stents, CHF, DM, ESRD (dialysis T,R,S), enlarged prostate and anxiety, who presents to the emergency department via ems for lightheadedness today and altered mental status. As per ems, the patient and his were not offering any pertinent information regarding the patients current symptoms. It is also unclear if the patient received hemodialysis today as scheduled. He denies chest pain, shortness of breath, headache and dizziness. He denies fever, chills, nausea, vomit, diarrhea and constipation. He denies dysuria, frequency, urgency and hematuria. Allergies: NKDA Past surgical history: CABG. Stents. Pacemaker. Cardiac Cath. Right arm fistula Social history: No tobacco use. EtOH and recreational drug use. PCP - Dr. Yrn Torres - Current Medication List Current Medications: Active Medications Apixaban (Eliquis -) 2.5 mg PO BID [facility] Last Admin: 04/04/17 11:16 Dose: 2.5 mg Aspirin (Asa -) 81 mg PO DAILY [facility] Last Admin: 04/04/17 11:17 Dose: 81 mg Atorvastatin Calcium (Lipitor -) 20 mg PO HS [facility] Last Admin: 04/03/17 21:25 Dose: 20 mg Carvedilol (Coreg -) 12.5 mg PO BID [facility] Last Admin: 04/04/17 11:18 Dose: 12.5 mg Cyclobenzaprine HCl (Flexeril -) 10 mg PO Q8H PRN PRN Reason: ARM PAIN Last Admin: 04/04/17 12:55 Dose: 10 mg Gabapentin (Neurontin -) 100 mg PO DAILY [facility] Last Admin: 04/04/17 11:15 Dose: 100 mg Hydralazine HCl (Apresoline -) 50 mg PO BID [facility] Last Admin: 04/04/17 11:16 Dose: 50 mg Insulin Aspart (Novolog Vial Sliding Scale -) 1 vial SQ ACHS [facility] PRN Reason: Protocol Last Admin: 04/04/17 12:27 Dose: Not Given Isosorbide Mononitrate (Imdur -) 30 mg PO DAILY [facility] Last Admin: 04/04/17 11:18 Dose: 30 mg Pantoprazole Sodium (Protonix -) 40 mg PO BID [facility] Last Admin: 04/04/17 11:17 Dose: 40 mg Sevelamer Carbonate (Renvela -) 800 mg PO TIDCM [facility] Last Admin: 04/04/17 11:18 Dose: Not Given Sodium Chloride (Normal Saline -) 250 ml IV Q20M PRN PRN Reason: MAP<65mm Hg OR SBP <90 Tamsulosin HCl (Flomax -) 0.4 mg PO DAILY@0830 [facility] Last Admin: 04/04/17 11:17 Dose: 0.4 mg Tramadol HCl (Ultram -) 50 mg PO Q8H PRN PRN Reason: PAIN Last Admin: 04/04/17 06:24 Dose: 50 mg - Objective Vital Signs: Vital Signs Temperature 97.6 F 04/04/17 15:15 Pulse Rate 61 04/04/17 15:15 Respiratory Rate 20 04/04/17 15:15 Blood Pressure 91/35 04/04/17 15:15 O2 Sat by Pulse Oximetry (%) 97 04/04/17 09:00 Constitutional: Yes: Anxious Eyes: Yes: WNL HENT: Yes: WNL Neck: Yes: WNL Cardiovascular: Yes: Pulse Irregular Respiratory: Yes: Diminished Gastrointestinal: Yes: Soft ...Rectal Exam: Yes: Deferred Genitourinary: No: Anuria Musculoskeletal: Yes: Joint Stiffness, Muscle Weakness Extremities: Yes: Cool Edema: No Peripheral Pulses WNL: No Peripheral Pulses: Left Doralis Pedis: 1+, Right Dorsalis Pedis: 1+ Integumentary: Yes: Incision, Other (Perma cath removed) Neurological: Yes: Alert, Oriented, Weakness Psychiatric: Yes: Other Labs: CBC, BMP 04/04/17 07:10 04/04/17 07:10 INR, PTT INR 1.26 (0.82-1.09) H 03/31/17 19:00 Problem List - Problems (1) Atypical chest pain Code(s): R07.89 - OTHER CHEST PAIN (2) DVT prophylaxis Code(s): SDA2519 - (3) Anemia Code(s): D64.9 - ANEMIA, UNSPECIFIED Qualifiers: (4) BPH (benign prostatic hypertrophy) Code(s): N40.0 - BENIGN PROSTATIC HYPERPLASIA WITHOUT LOWER URINRY TRACT SYMP (5) Chronic systolic heart failure Code(s): I50.22 - CHRONIC SYSTOLIC (CONGESTIVE) HEART FAILURE (6) Dependency on pain medication Code(s): F19.20 - OTHER PSYCHOACTIVE SUBSTANCE DEPENDENCE, UNCOMPLICATED (7) Diabetes Code(s): E11.9 - TYPE 2 DIABETES MELLITUS WITHOUT COMPLICATIONS (8) ESRD (end stage renal disease) on dialysis Assessment/Plan: Permacath removed. hemodialysis per nephroloist. Code(s): N18.6 - END STAGE RENAL DISEASE Z99.2 - DEPENDENCE ON RENAL DIALYSIS (9) History of hemiarthroplasty of left hip Code(s): Z96.642 - PRESENCE OF LEFT ARTIFICIAL HIP JOINT (10) Hx of CABG Code(s): Z95.1 - PRESENCE OF AORTOCORONARY BYPASS GRAFT (11) Hyperlipidemia Code(s): E78.5 - HYPERLIPIDEMIA, UNSPECIFIED Qualifiers: Hyperlipidemia type: pure hypercholesterolemia Qualified Code(s): E78.00 - Pure hypercholesterolemia, unspecified; E78.0 - Pure hypercholesterolemia (12) Hypertension Code(s): I10 - ESSENTIAL (PRIMARY) HYPERTENSION Qualifiers: Hypertension type: essential hypertension Qualified Code(s): I10 - Essential (primary) hypertension (13) ICD (implantable cardioverter-defibrillator) in place Assessment/Plan: "reverberation" noted around ICD lead; Afebrile; normsl WBC count. On antibiotics. Code(s): Z95.810 - PRESENCE OF AUTOMATIC (IMPLANTABLE) CARDIAC DEFIBRILLATOR
[2017-04-04] MEDS ORDERED: PT OWN MED DRAWER 7, Y5N ONE (21:05)
[2017-04-04] MEDS: ATORVASTATIN CA 20 MG TABLET (FP) PO SCH (21:34)
[2017-04-05] MEDS: INSULIN SLIDING SCALE (NOVOLOG) 1 VIAL SQ SCH ×4 (06:08→22:10)
[2017-04-05 08:10] LABS: ANION GAP 7 (8-16); CALCIUM 8.4 mg/dL (8.5-10.1); CO2 34 mmol/L (21-32); CREATININE 3.4 mg/dL (0.7-1.3); GLUCOSE,RANDOM 92 mg/dL (74-106)
[2017-04-05] MEDS: SEVELAMER CARBONATE 800 MG TAB (FP) PO SCH ×3 (08:15→17:29)
[2017-04-05] MEDS: TAMSULOSIN HCL 0.4 MG CAP.ER.24H (FP) PO SCH (08:15)
[2017-04-05] MEDS: hydrALAZINE HCL 25 MG TABLET (FP) PO SCH ×2 (10:05→22:08)
[2017-04-05] MEDS: PANTOPRAZOLE 40 MG TABLET (FP) PO SCH ×2 (10:06→22:09)
[2017-04-05] MEDS: APIXABAN 2.5 MG TABLET PO SCH ×2 (10:06→22:09)
[2017-04-05] MEDS: GABAPENTIN 100 MG CAPSULE (FP) PO SCH (10:06)
[2017-04-05] MEDS: CARVEDILOL 12.5 MG TABLET (FP) PO SCH ×2 (10:06→22:09)
[2017-04-05] MEDS: ISOSORBIDE MONONITRATE 30 MG TAB.SR.24H (FP) PO SCH (10:06)
[2017-04-05] MEDS: CYCLOBENZAPRINE HCL 10 MG TABLET (FP) PO PRN ×2 (10:06→19:01)
[2017-04-05] MEDS: ASPIRIN 81 MG CHEWABLE TABLETS PO SCH (10:06)
[2017-04-05 10:32] LABS: EOSINOPHIL 2.8 % (0-4.5); MCH 28.6 pg (25.7-33.7); MCHC 31.7 g/dl (32.0-35.9); MEAN CELL VOLUME 90.2 fl (80-96); NEUTROPHILS 67.2 % (42.8-82.8); PLATELET COUNT 139 K/MM3 (134-434); RDW 16.4 % (11.9-15.9); WHITE BLOOD COUNT 4.2 K/mm3 (4.0-10.0)
--- NOTE | 2017-04-05 10:36 | PN ---
Progress Note, Physician History of Present Illness: Renal f/u Pt is in no distress and denies any complaints He wants to go home Perm Cath removed BC of 04/03 negative to date Echo -Reduced LVEF Mod MR and Severe TR. No vegetations seen on RAZIA - Current Medication List Current Medications: Active Medications Apixaban (Eliquis -) 2.5 mg PO BID [facility] Last Admin: 04/05/17 10:06 Dose: 2.5 mg Aspirin (Asa -) 81 mg PO DAILY [facility] Last Admin: 04/05/17 10:06 Dose: 81 mg Atorvastatin Calcium (Lipitor -) 20 mg PO HS [facility] Last Admin: 04/04/17 21:34 Dose: 20 mg Carvedilol (Coreg -) 12.5 mg PO BID [facility] Last Admin: 04/05/17 10:06 Dose: 12.5 mg Cyclobenzaprine HCl (Flexeril -) 10 mg PO Q8H PRN PRN Reason: ARM PAIN Last Admin: 04/05/17 10:06 Dose: 10 mg Gabapentin (Neurontin -) 100 mg PO DAILY [facility] Last Admin: 04/05/17 10:06 Dose: 100 mg Hydralazine HCl (Apresoline -) 50 mg PO BID [facility] Last Admin: 04/05/17 10:05 Dose: 50 mg Insulin Aspart (Novolog Vial Sliding Scale -) 1 vial SQ ACHS [facility] PRN Reason: Protocol Last Admin: 04/05/17 06:08 Dose: Not Given Isosorbide Mononitrate (Imdur -) 30 mg PO DAILY [facility] Last Admin: 04/05/17 10:06 Dose: 30 mg Pantoprazole Sodium (Protonix -) 40 mg PO BID [facility] Last Admin: 04/05/17 10:06 Dose: 40 mg Sevelamer Carbonate (Renvela -) 800 mg PO TIDCM [facility] Last Admin: 04/05/17 08:15 Dose: 800 mg Sodium Chloride (Normal Saline -) 250 ml IV Q20M PRN PRN Reason: MAP<65mm Hg OR SBP <90 Tamsulosin HCl (Flomax -) 0.4 mg PO DAILY@0830 [facility] Last Admin: 04/05/17 08:15 Dose: 0.4 mg - Objective Vital Signs: Vital Signs Temperature 97.6 F 04/05/17 08:56 Pulse Rate 70 04/05/17 08:56 Respiratory Rate 20 04/05/17 08:57 Blood Pressure 137/54 04/05/17 08:56 O2 Sat by Pulse Oximetry (%) 94 L 04/05/17 08:57 Constitutional: Yes: No Distress Cardiovascular: Yes: S1, S2 Respiratory: Yes: CTA Bilaterally Gastrointestinal: Yes: Soft. No: Tenderness, Rebound Edema: No Labs: CBC, BMP 04/05/17 05:35 04/05/17 05:35 INR, PTT INR 1.26 (0.82-1.09) H 03/31/17 19:00 Laboratory Tests 04/05/17 05:35 Random Vancomycin 15.149 Assessment/Plan Impression 1. ESRD 2. SCN Bacteremia 3. HTN 4. narcotic dependence 5. CAD 6. pleural effusions 7. anemia 8. chest pain 9. DVT 10. hx GI bleed Plan - Should have a new Perm Cath inserted by 04/07 which is when his next HD is due - Abx as per ID - 1 gram of Vancomycin today since level ~ 15 Dr Ramsey
[2017-04-05] MEDS ORDERED: VANCOMYCIN 1 GRAM (PRE-DOCKED) 250 ML IVPB ONE (11:30)
--- NOTE | 2017-04-05 13:25 | PN ---
Physical Exam: SUBJECTIVE: Patient seen and examined at bedside. Pain 7/10 to right shoulder. Worsens with movement. Requesting to go home. OBJECTIVE: Vital Signs Period Temp Pulse Resp BP Sys/Hinds Pulse Ox Last 24 Hr 97.1 F-98.6 F 61-70 18-20 91-137/35-83 94-97 GENERAL: The patient is awake, alert, and fully oriented. Grimacing. HEAD: Normal with no signs of trauma. NECK: Trachea midline. LUNGS: Refused lung exam. HEART: Refused cardiac exam. JVD present on RIJ. Dressing from PC removal with minimal bloody drainage. ABDOMEN: Refused abdominal exam. EXTREMITIES: 2+ pulses, warm, well-perfused. Point tenderness to right anterior humeral head. Right hand 3rd digit amputation. LUE edematous. NEUROLOGICAL: Cranial nerves II through XII grossly intact. Normal speech, gait not observed. Laboratory Results - last 24 hr 3 04/04/17 04/04/17 04/05/17 16:36 21:33 05:35 WBC RBC Hgb Hct MCV MCHC RDW Plt Count MPV Neutrophils % Lymphocytes % Monocytes % Eosinophils % Basophils % Sodium Potassium Chloride Carbon Dioxide Anion Gap BUN Creatinine POC Glucometer 174 147 Random Glucose Calcium Random Vancomycin 15.149 3 04/05/17 04/05/17 04/05/17 05:35 05:35 05:38 WBC 4.2 RBC 3.52 L Hgb 10.1 L Hct 31.8 L MCV 90.2 MCHC 31.7 L RDW 16.4 H Plt Count 139 MPV 9.0 Neutrophils % 67.2 Lymphocytes % 12.9 D Monocytes % 16.1 H Eosinophils % 2.8 D Basophils % 1.0 Sodium 142 Potassium 3.7 Chloride 101 Carbon Dioxide 34 H Anion Gap 7 L BUN 15 D Creatinine 3.4 H D POC Glucometer 95 Random Glucose 92 Calcium 8.4 L Random Vancomycin Active Medications 3 Generic Name Dose Route Start Last Admin Trade Name Freq PRN Reason Stop Dose Admin Apixaban 2.5 mg 03/31/17 22:00 04/05/17 10:06 Eliquis - PO 2.5 mg BID NGOC Administration Aspirin 81 mg 04/01/17 10:00 04/05/17 10:06 Asa - PO 81 mg DAILY [facility] Administration Atorvastatin Calcium 20 mg 03/31/17 22:00 04/04/17 21:34 Lipitor - PO 20 mg HS NGOC Administration Carvedilol 12.5 mg 03/31/17 22:00 04/05/17 10:06 Coreg - PO 12.5 mg BID NGOC Administration Cyclobenzaprine HCl 10 mg 03/31/17 21:59 04/05/17 10:06 Flexeril - PO 10 mg Q8H PRN Administration ARM PAIN Gabapentin 100 mg 04/01/17 10:00 04/05/17 10:06 Neurontin - PO 100 mg DAILY [facility] Administration Hydralazine HCl 50 mg 03/31/17 22:00 04/05/17 10:05 Apresoline - PO 50 mg BID NGOC Administration Insulin Aspart 1 vial 03/31/17 22:00 04/05/17 13:17 Novolog Vial Sliding Scale - SQ Not Given ACHS [facility] Protocol Isosorbide Mononitrate 30 mg 04/01/17 10:00 04/05/17 10:06 Imdur - PO 30 mg DAILY [facility] Administration Pantoprazole Sodium 40 mg 03/31/17 22:00 04/05/17 10:06 Protonix - PO 40 mg BID NGOC Administration Sevelamer Carbonate 800 mg 04/01/17 08:00 04/05/17 13:17 Renvela - PO Not Given TIDCM [facility] Sodium Chloride 250 ml 03/31/17 18:52 Normal Saline - IV Q20M PRN MAP<65mm Hg OR SBP <90 Tamsulosin HCl 0.4 mg 04/01/17 08:30 04/05/17 08:15 Flomax - PO 0.4 mg DAILY@0830 [facility] Administration Microbiology 03/31/17 19:10 Blood - Peripheral Venous Blood Culture - Final Staphylococcus Epidermidis 03/31/17 19:00 Blood - Peripheral Venous Blood Culture - Final Staphylococcus Epidermidis 04/03/17 08:15 Blood - Peripheral Venous Blood Culture - Preliminary NO GROWTH OBTAINED AFTER 48 HOURS, INCUBATION TO CONTINUE FOR 3 DAYS. 04/03/17 06:45 Blood - Peripheral Venous Blood Culture - Preliminary NO GROWTH OBTAINED AFTER 48 HOURS, INCUBATION TO CONTINUE FOR 3 DAYS. 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 Staphylococcus coag neg bacteremia - Awaiting final culture and sensitivity- No growth after 48hrs. - Remains afebrile - Continue Vancomycin - Zosyn stopped 04/01 - ECHO cannot rule out vegetation, RAZIA recommended by ID- scheduled for 04/06 - Appreciate ID consult 2. ESRD on HD - Continue HD - Appreciate nephrology consult 3. BPH - Continue Flomax 4. Hx of RUE DVT - Continue Eliquis 5. Chronic LUE edema: documented on or before 10/28/16 - LUE ultrasound with no evidence of DVT. Diffuse soft tissue edema in the left arm including elbow without evidence of fluid collection - Left arm elevation 6. HTN - Continue Coreg - Continue Hydralazine 7. CAD s/p stenting - Continue Imdur - Continue ASA 8. Chest Pain - Resolved - Trop x3 negative - appreciate cards 9. HLD - Continue Lipitor 10. DM - BGM ACHS - ISS ACHS 11. Right shoulder pain - point tenderness to humeral head - xray - tylenol 650mg x1 dose 12. F/E/N - Renal diabetic diet - Monitor electrolytes 13. PPX - On Eliquis Dispo- Requires continued inpatient care CODE STATUS: FULL CODE Visit type - Emergency Visit Emergency Visit: Yes ED Registration Date: 03/31/17 Care time: The patient presented to the Emergency Department on the above date and was hospitalized for further evaluation of their emergent condition. - New Patient This patient is new to me today: No - Critical Care Critical Care patient: No
[2017-04-05] MEDS ORDERED: ACETAMINOPHEN 325 MG TABLET (FP) PO ONE (14:17)
--- NOTE | 2017-04-05 15:28 | PN ---
Progress Note, Physician Chief Complaint: Pt insists on going home. He denies chest pain, dyspnea, palpititations. History of Present Illness: The patient is a 66 year old male, with a significant past medical history of anemia, hypertension, hypercholesterolemia, CVA, DVT, CAD s/p CABG, pacemaker and stents, CHF, DM, ESRD (dialysis T,R,S), enlarged prostate and anxiety, who presents to the emergency department via ems for lightheadedness today and altered mental status. As per ems, the patient and his were not offering any pertinent information regarding the patients current symptoms. It is also unclear if the patient received hemodialysis today as scheduled. He denies chest pain, shortness of breath, headache and dizziness. He denies fever, chills, nausea, vomit, diarrhea and constipation. He denies dysuria, frequency, urgency and hematuria. Allergies: NKDA Past surgical history: CABG. Stents. Pacemaker. Cardiac Cath. Right arm fistula Social history: No tobacco use. EtOH and recreational drug use. PCP - Dr. Yrn Torres - Current Medication List Current Medications: Active Medications Apixaban (Eliquis -) 2.5 mg PO BID [facility] Last Admin: 04/05/17 10:06 Dose: 2.5 mg Aspirin (Asa -) 81 mg PO DAILY [facility] Last Admin: 04/05/17 10:06 Dose: 81 mg Atorvastatin Calcium (Lipitor -) 20 mg PO HS [facility] Last Admin: 04/04/17 21:34 Dose: 20 mg Carvedilol (Coreg -) 12.5 mg PO BID [facility] Last Admin: 04/05/17 10:06 Dose: 12.5 mg Cyclobenzaprine HCl (Flexeril -) 10 mg PO Q8H PRN PRN Reason: ARM PAIN Last Admin: 04/05/17 10:06 Dose: 10 mg Gabapentin (Neurontin -) 100 mg PO DAILY [facility] Last Admin: 04/05/17 10:06 Dose: 100 mg Hydralazine HCl (Apresoline -) 50 mg PO BID [facility] Last Admin: 04/05/17 10:05 Dose: 50 mg Insulin Aspart (Novolog Vial Sliding Scale -) 1 vial SQ ACHS [facility] PRN Reason: Protocol Last Admin: 04/05/17 13:17 Dose: Not Given Isosorbide Mononitrate (Imdur -) 30 mg PO DAILY [facility] Last Admin: 04/05/17 10:06 Dose: 30 mg Pantoprazole Sodium (Protonix -) 40 mg PO BID [facility] Last Admin: 04/05/17 10:06 Dose: 40 mg Sevelamer Carbonate (Renvela -) 800 mg PO TIDCM [facility] Last Admin: 04/05/17 13:17 Dose: Not Given Sodium Chloride (Normal Saline -) 250 ml IV Q20M PRN PRN Reason: MAP<65mm Hg OR SBP <90 Tamsulosin HCl (Flomax -) 0.4 mg PO DAILY@0830 [facility] Last Admin: 04/05/17 08:15 Dose: 0.4 mg - Objective Vital Signs: Vital Signs Temperature 97.3 F L 04/05/17 15:12 Pulse Rate 64 04/05/17 15:12 Respiratory Rate 20 04/05/17 15:12 Blood Pressure 119/53 04/05/17 15:12 O2 Sat by Pulse Oximetry (%) 94 L 04/05/17 08:57 Constitutional: Yes: Anxious Eyes: Yes: WNL HENT: Yes: WNL Neck: Yes: WNL Cardiovascular: Yes: Pulse Irregular, S1, S2 (split) Respiratory: Yes: Diminished Gastrointestinal: Yes: Soft ...Rectal Exam: Yes: Deferred Genitourinary: No: Anuria Musculoskeletal: Yes: Muscle Pain, Muscle Weakness Extremities: Yes: Cool Edema: No Peripheral Pulses WNL: No Peripheral Pulses: Left Doralis Pedis: 2+, Right Dorsalis Pedis: 2+ Integumentary: Yes: Incision Neurological: Yes: Weakness Psychiatric: Yes: Other Labs: CBC, BMP 04/05/17 05:35 04/05/17 05:35 INR, PTT INR 1.26 (0.82-1.09) H 03/31/17 19:00 Abnormal Lab Results 04/05/17 04/05/17 05:35 05:35 RBC 3.52 L Hgb 10.1 L Hct 31.8 L MCHC 31.7 L RDW 16.4 H Monocytes % 16.1 H Carbon Dioxide 34 H Anion Gap 7 L Creatinine 3.4 H D Calcium 8.4 L - ....Imaging Other: Image Reviewed (telemetry: ventricular pacing) Problem List - Problems (1) Atypical chest pain Code(s): R07.89 - OTHER CHEST PAIN (2) DVT prophylaxis Code(s): [id number] - (3) Anemia Code(s): D64.9 - ANEMIA, UNSPECIFIED Qualifiers: (4) BPH (benign prostatic hypertrophy) Code(s): N40.0 - BENIGN PROSTATIC HYPERPLASIA WITHOUT LOWER URINRY TRACT SYMP (5) Chronic systolic heart failure Assessment/Plan: On beta blockers, hydralazine + Imdur. Hemodialysis per [employer] associate. Code(s): I50.22 - CHRONIC SYSTOLIC (CONGESTIVE) HEART FAILURE (6) Dependency on pain medication Code(s): F19.20 - OTHER PSYCHOACTIVE SUBSTANCE DEPENDENCE, UNCOMPLICATED (7) Diabetes Code(s): E11.9 - TYPE 2 DIABETES MELLITUS WITHOUT COMPLICATIONS (8) ESRD (end stage renal disease) on dialysis Assessment/Plan: Permacath removed. hemodialysis per [employer] associate. Code(s): N18.6 - END STAGE RENAL DISEASE Z99.2 - DEPENDENCE ON RENAL DIALYSIS (9) History of hemiarthroplasty of left hip Code(s): Z96.642 - PRESENCE OF LEFT ARTIFICIAL HIP JOINT (10) Hx of CABG Code(s): Z95.1 - PRESENCE OF AORTOCORONARY BYPASS GRAFT (11) Hyperlipidemia Code(s): E78.5 - HYPERLIPIDEMIA, UNSPECIFIED Qualifiers: Hyperlipidemia type: pure hypercholesterolemia Qualified Code(s): E78.00 - Pure hypercholesterolemia, unspecified; E78.0 - Pure hypercholesterolemia (12) Hypertension Code(s): I10 - ESSENTIAL (PRIMARY) HYPERTENSION Qualifiers: Hypertension type: essential hypertension Qualified Code(s): I10 - Essential (primary) hypertension (13) ICD (implantable cardioverter-defibrillator) in place Assessment/Plan: "reverberation" noted around ICD lead; Afebrile; normal WBC count. On antibiotics. Code(s): Z95.810 - PRESENCE OF AUTOMATIC (IMPLANTABLE) CARDIAC DEFIBRILLATOR
[2017-04-05] MEDS: VANCOMYCIN 1 GRAM (PRE-DOCKED) 250 ML IVPB ONE ×2 (15:43→18:06)
[2017-04-05] MEDS: ATORVASTATIN CA 20 MG TABLET (FP) PO SCH (22:09)
[2017-04-06] MEDS: INSULIN SLIDING SCALE (NOVOLOG) 1 VIAL SQ SCH ×4 (06:04→22:34)
[2017-04-06 07:48] LABS: BASOPHIL 0.8 % (0-2.0); MCH 29.3 pg (25.7-33.7); MCHC 32.7 g/dl (32.0-35.9); MEAN CELL VOLUME 89.5 fl (80-96); NEUTROPHILS 71.9 % (42.8-82.8); PLATELET COUNT 141 K/MM3 (134-434)
[2017-04-06 08:25] LABS: ANION GAP 9 (8-16); CALCIUM 8.6 mg/dL (8.5-10.1); CO2 31 mmol/L (21-32); GLUCOSE,RANDOM 111 mg/dL (74-106)
[2017-04-06 08:28] LABS: CREATININE 4.6 mg/dL (0.7-1.3)
[2017-04-06] MEDS: TAMSULOSIN HCL 0.4 MG CAP.ER.24H (FP) PO SCH (08:55)
[2017-04-06] MEDS: SEVELAMER CARBONATE 800 MG TAB (FP) PO SCH ×3 (08:55→17:26)
--- NOTE | 2017-04-06 09:18 | PN ---
Progress Note (short form) - Note Progress Note: wants to go home no complaints afebrile received vancmycin yesterday Vital Signs Period Temp Pulse Resp BP Sys/Hinds Pulse Ox Last 24 Hr 97.0 F-98.4 F 60-64 20-20 94-119/47-60 96-96 cor-rrr lungs clear abd soft,nt ext no edema CBC, BMP 04/06/17 05:57 04/06/17 05:57 Microbiology 04/03/17 08:15 Blood - Peripheral Venous Blood Culture - Preliminary NO GROWTH OBTAINED AFTER 72 HOURS, INCUBATION TO CONTINUE FOR 2 DAYS. 04/03/17 06:45 Blood - Peripheral Venous Blood Culture - Preliminary NO GROWTH OBTAINED AFTER 72 HOURS, INCUBATION TO CONTINUE FOR 2 DAYS. 03/31/17 19:10 Blood - Peripheral Venous Blood Culture - Final Staphylococcus Epidermidis 03/31/17 19:00 Blood - Peripheral Venous Blood Culture - Final Staphylococcus Epidermidis 03/31/17 21:41 Urine - Urine - Catheterized Urine Culture - Final 04/01/17 14:20 Nasopharyngeal Swab Influenza Types A,B Antigen (NAVID) - Final 04/01/17 14:20 Nasopharyngeal Swab - Final a/p Staph epi bacteremia- repeat blood cultures are negative, PC has been removed esrd/hd on vancomycin d/w Dr Abdi and Dr Wong- given rapidity of clearing of blood cultures would continue vancomycin with HD for 6 weeks and repeat blood cultures off antibiotics after treatment is complete-do not feel RAZIA would 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
[2017-04-06] MEDS: hydrALAZINE HCL 25 MG TABLET (FP) PO SCH ×2 (09:35→22:29)
[2017-04-06] MEDS: PANTOPRAZOLE 40 MG TABLET (FP) PO SCH ×2 (09:36→22:29)
[2017-04-06] MEDS: ASPIRIN 81 MG CHEWABLE TABLETS PO SCH (09:36)
[2017-04-06] MEDS: CARVEDILOL 12.5 MG TABLET (FP) PO SCH ×2 (09:36→22:29)
[2017-04-06] MEDS: ISOSORBIDE MONONITRATE 30 MG TAB.SR.24H (FP) PO SCH (09:36)
[2017-04-06] MEDS: GABAPENTIN 100 MG CAPSULE (FP) PO SCH (09:36)
[2017-04-06] MEDS: APIXABAN 2.5 MG TABLET PO SCH (09:36)
--- NOTE | 2017-04-06 12:03 | PN ---
Progress Note, Physician History of Present Illness: The patient is a 66 year old male, with a significant past medical history of anemia, hypertension, hypercholesterolemia, CVA, DVT, CAD s/p CABG, pacemaker and stents, CHF, DM, ESRD (dialysis T,R,S), enlarged prostate and anxiety, who presents to the emergency department via ems for lightheadedness today and altered mental status. As per ems, the patient and his were not offering any pertinent information regarding the patients current symptoms. It is also unclear if the patient received hemodialysis today as scheduled. He denies chest pain, shortness of breath, headache and dizziness. He denies fever, chills, nausea, vomit, diarrhea and constipation. He denies dysuria, frequency, urgency and hematuria. Allergies: NKDA Past surgical history: CABG. Stents. Pacemaker. Cardiac Cath. Right arm fistula Social history: No tobacco use. EtOH and recreational drug use. PCP - Dr. Yrn Torres - Current Medication List Current Medications: Active Medications Apixaban (Eliquis -) 2.5 mg PO BID [facility] Last Admin: 04/06/17 09:36 Dose: 2.5 mg Aspirin (Asa -) 81 mg PO DAILY [facility] Last Admin: 04/06/17 09:36 Dose: 81 mg Atorvastatin Calcium (Lipitor -) 20 mg PO HS [facility] Last Admin: 04/05/17 22:09 Dose: 20 mg Carvedilol (Coreg -) 12.5 mg PO BID [facility] Last Admin: 04/06/17 09:36 Dose: 12.5 mg Cyclobenzaprine HCl (Flexeril -) 10 mg PO Q8H PRN PRN Reason: ARM PAIN Last Admin: 04/05/17 19:01 Dose: 10 mg Gabapentin (Neurontin -) 100 mg PO DAILY [facility] Last Admin: 04/06/17 09:36 Dose: 100 mg Hydralazine HCl (Apresoline -) 50 mg PO BID [facility] Last Admin: 04/06/17 09:35 Dose: 50 mg Insulin Aspart (Novolog Vial Sliding Scale -) 1 vial SQ ACHS [facility] PRN Reason: Protocol Last Admin: 04/06/17 11:48 Dose: Not Given Isosorbide Mononitrate (Imdur -) 30 mg PO DAILY [facility] Last Admin: 04/06/17 09:36 Dose: 30 mg Pantoprazole Sodium (Protonix -) 40 mg PO BID [facility] Last Admin: 04/06/17 09:36 Dose: 40 mg Sevelamer Carbonate (Renvela -) 800 mg PO TIDCM [facility] Last Admin: 04/06/17 11:48 Dose: Not Given Sodium Chloride (Normal Saline -) 250 ml IV Q20M PRN PRN Reason: MAP<65mm Hg OR SBP <90 Tamsulosin HCl (Flomax -) 0.4 mg PO DAILY@0830 [facility] Last Admin: 04/06/17 08:55 Dose: Not Given - Objective Vital Signs: Vital Signs Temperature 98.4 F 04/06/17 06:00 Pulse Rate 60 04/06/17 06:00 Respiratory Rate 20 04/06/17 06:00 Blood Pressure 119/50 04/06/17 06:00 O2 Sat by Pulse Oximetry (%) 95 04/06/17 09:00 Eyes: Yes: WNL, Conjunctiva Clear, EOM Intact HENT: Yes: WNL, Atraumatic, Normocephalic Neck: Yes: WNL, Supple, Trachea Midline Cardiovascular: Yes: WNL, Regular Rate and Rhythm Respiratory: Yes: WNL, Regular, CTA Bilaterally Gastrointestinal: Yes: WNL, Normal Bowel Sounds Genitourinary: Yes: WNL Musculoskeletal: Yes: WNL Extremities: Yes: WNL Edema: No Integumentary: Yes: WNL Neurological: Yes: WNL, Alert, Oriented ...Motor Strength: WNL Psychiatric: Yes: WNL Labs: CBC, BMP 04/06/17 05:57 04/06/17 05:57 INR, PTT INR 1.26 (0.82-1.09) H 03/31/17 19:00 Problem List - Problems (1) Atypical chest pain Code(s): R07.89 - OTHER CHEST PAIN (2) DVT prophylaxis Code(s): [id number] - (3) Fluid overload Code(s): E87.70 - FLUID OVERLOAD, UNSPECIFIED Qualifiers: Hypervolemia type: unspecified Qualified Code(s): E87.70 - Fluid overload, unspecified (4) Sepsis Code(s): A41.9 - SEPSIS, UNSPECIFIED ORGANISM Qualifiers: Sepsis type: sepsis due to unspecified organism Qualified Code(s): A41.9 - Sepsis, unspecified organism (5) Anemia Code(s): D64.9 - ANEMIA, UNSPECIFIED Qualifiers: (6) BPH (benign prostatic hypertrophy) Code(s): N40.0 - BENIGN PROSTATIC HYPERPLASIA WITHOUT LOWER URINRY TRACT SYMP (7) Chronic pain disorder Code(s): G89.4 - CHRONIC PAIN SYNDROME (8) Chronic systolic heart failure Code(s): I50.22 - CHRONIC SYSTOLIC (CONGESTIVE) HEART FAILURE (9) Coronary artery disease Code(s): I25.10 - ATHSCL HEART DISEASE OF [place] CORONARY ARTERY W/O ANG PCTRS Qualifiers: Coronary Disease-Associated Artery/Lesion type: [place] artery [place] vs. transplanted heart: [place] heart Associated angina: without angina Qualified Code(s): I25.10 - Atherosclerotic heart disease of [place] coronary artery without angina pectoris (10) DVT (deep venous thrombosis) Code(s): I82.409 - ACUTE EMBOLISM AND THOMBOS UNSP DEEP VN UNSP LOWER EXTREMITY (11) Dependency on pain medication Code(s): F19.20 - OTHER PSYCHOACTIVE SUBSTANCE DEPENDENCE, UNCOMPLICATED (12) Diabetes Code(s): E11.9 - TYPE 2 DIABETES MELLITUS WITHOUT COMPLICATIONS (13) Drug-seeking behavior Code(s): Z72.89 - OTHER PROBLEMS RELATED TO LIFESTYLE (14) ESRD (end stage renal disease) on dialysis Code(s): N18.6 - END STAGE RENAL DISEASE Z99.2 - DEPENDENCE ON RENAL DIALYSIS (15) Hip pain, left Code(s): M25.552 - PAIN IN LEFT HIP (16) History of hemiarthroplasty of left hip Code(s): Z96.642 - PRESENCE OF LEFT ARTIFICIAL HIP JOINT (17) Hx of CABG Code(s): Z95.1 - PRESENCE OF AORTOCORONARY BYPASS GRAFT (18) Hyperlipidemia Code(s): E78.5 - HYPERLIPIDEMIA, UNSPECIFIED Qualifiers: Hyperlipidemia type: pure hypercholesterolemia Qualified Code(s): E78.00 - Pure hypercholesterolemia, unspecified; E78.0 - Pure hypercholesterolemia (19) Hypertension Code(s): I10 - ESSENTIAL (PRIMARY) HYPERTENSION Qualifiers: Hypertension type: essential hypertension Qualified Code(s): I10 - Essential (primary) hypertension (20) ICD (implantable cardioverter-defibrillator) in place Code(s): Z95.810 - PRESENCE OF AUTOMATIC (IMPLANTABLE) CARDIAC DEFIBRILLATOR (21) Noncompliance of patient with renal dialysis Code(s): Z91.15 - PATIENT'S NONCOMPLIANCE WITH RENAL DIALYSIS (22) PAD (peripheral artery disease) Code(s): I73.9 - PERIPHERAL VASCULAR DISEASE, UNSPECIFIED (23) PAF (paroxysmal atrial fibrillation) Code(s): I48.0 - PAROXYSMAL ATRIAL FIBRILLATION (24) PVD (peripheral vascular disease) Code(s): I73.9 - PERIPHERAL VASCULAR DISEASE, UNSPECIFIED (25) S/P mitral valve repair Code(s): Z98.89 - OTHER SPECIFIED POSTPROCEDURAL STATES * DO NOT USE * (26) Status post coronary artery stent placement Code(s): Z95.5 - PRESENCE OF CORONARY ANGIOPLASTY IMPLANT AND GRAFT (27) Status post percutaneous transluminal coronary angioplasty Code(s): Z98.61 - CORONARY ANGIOPLASTY STATUS (28) Type 2 diabetes mellitus Code(s): E11.9 - TYPE 2 DIABETES MELLITUS WITHOUT COMPLICATIONS Qualifiers: Diabetes mellitus complication status: with kidney complications Diabetes mellitus complication detail: with chronic kidney disease Chronic kidney disease stage: on chronic dialysis (29) Unable to ambulate Code(s): R26.2 - DIFFICULTY IN WALKING, NOT ELSEWHERE CLASSIFIED (30) Acute coronary syndrome Code(s): I24.9 - ACUTE ISCHEMIC HEART DISEASE, UNSPECIFIED (31) Chest pain of uncertain etiology Code(s): R07.89 - OTHER CHEST PAIN (32) Hyperkalemia Code(s): E87.5 - HYPERKALEMIA (33) Subtherapeutic international normalized ratio (INR) Code(s): R79.1 - ABNORMAL COAGULATION PROFILE (34) Allergy Code(s): T78.40XA - ALLERGY, UNSPECIFIED, INITIAL ENCOUNTER Qualifiers: Encounter type: initial encounter Qualified Code(s): T78.40XA - Allergy , unspecified, initial encounter (35) Arm edema Code(s): R60.0 - LOCALIZED EDEMA (36) Arm pain Code(s): M79.603 - PAIN IN ARM, UNSPECIFIED Qualifiers: Laterality: left Qualified Code(s): M79.602 - Pain in left arm (37) Chest pain Code(s): R07.9 - CHEST PAIN, UNSPECIFIED (38) End stage renal disease Code(s): N18.6 - END STAGE RENAL DISEASE (39) Fall Code(s): W19.XXXA - UNSPECIFIED FALL, INITIAL ENCOUNTER Qualifiers: Encounter type: initial encounter Qualified Code(s): W19.XXXA - Unspecified fall, initial encounter (40) Head injury Code(s): S09.90XA - UNSPECIFIED INJURY OF HEAD, INITIAL ENCOUNTER Qualifiers: Encounter type: initial encounter Qualified Code(s): S09.90XA - Unspecified injury of head, initial encounter (41) Leg pain, bilateral Code(s): M79.604 - PAIN IN RIGHT LEG M79.605 - PAIN IN LEFT LEG (42) Arm mass Code(s): R22.30 - LOCALIZED SWELLING, MASS AND LUMP, UNSPECIFIED UPPER LIMB Qualifiers: Laterality: left Qualified Code(s): R22.32 - Localized swelling, mass and lump, left upper limb (43) Edema of left forearm Code(s): R60.9 - EDEMA, UNSPECIFIED (44) Hematoma Code(s): T14.8 - OTHER INJURY OF UNSPECIFIED BODY REGION (45) Low back pain Code(s): M54.5 - LOW BACK PAIN Qualifiers: Chronicity: chronic Back pain laterality: unspecified Sciatica presence: without sciatica Qualified Code(s): M54.5 - Low back pain Assessment/Plan - Problems (1) Atypical chest pain Code(s): R07.89 - OTHER CHEST PAIN (2) DVT prophylaxis Code(s): [id number] - (3) Anemia Code(s): D64.9 - ANEMIA, UNSPECIFIED Qualifiers: (4) BPH (benign prostatic hypertrophy) Code(s): N40.0 - BENIGN PROSTATIC HYPERPLASIA WITHOUT LOWER URINRY TRACT SYMP (5) Chronic systolic heart failure Assessment/Plan: On beta blockers, hydralazine + Imdur. Hemodialysis per [employer]. Code(s): I50.22 - CHRONIC SYSTOLIC (CONGESTIVE) HEART FAILURE (6) Dependency on pain medication Code(s): F19.20 - OTHER PSYCHOACTIVE SUBSTANCE DEPENDENCE, UNCOMPLICATED (7) Diabetes Code(s): E11.9 - TYPE 2 DIABETES MELLITUS WITHOUT COMPLICATIONS (8) ESRD (end stage renal disease) on dialysis Assessment/Plan: Permacath removed. hemodialysis per [employer]her. Code(s): N18.6 - END STAGE RENAL DISEASE Z99.2 - DEPENDENCE ON RENAL DIALYSIS (9) History of hemiarthroplasty of left hip Code(s): Z96.642 - PRESENCE OF LEFT ARTIFICIAL HIP JOINT (10) Hx of CABG Code(s): Z95.1 - PRESENCE OF AORTOCORONARY BYPASS GRAFT (11) Hyperlipidemia Code(s): E78.5 - HYPERLIPIDEMIA, UNSPECIFIED Qualifiers: Hyperlipidemia type: pure hypercholesterolemia Qualified Code(s): E78.00 - Pure hypercholesterolemia, unspecified; E78.0 - Pure hypercholesterolemia (12) Hypertension Code(s): I10 - ESSENTIAL (PRIMARY) HYPERTENSION Qualifiers: Hypertension type: essential hypertension Qualified Code(s): I10 - Essential (primary) hypertension (13) ICD (implantable cardioverter-defibrillator) in place Assessment/Plan: "reverberation" noted around ICD lead; Afebrile; normal WBC count. On antibiotics. Code(s): Z95.810 - PRESENCE OF AUTOMATIC (IMPLANTABLE) CARDIAC DEFIBRILLATOR
--- NOTE | 2017-04-06 13:05 | PN ---
Progress Note (short form) - Note Progress Note: ESRD on HD. IJ permacath removed recently due to (+) cultures. Last Vital Signs Temp Pulse Resp BP Pulse Ox 98 F 64 18 125/45 95 04/06/17 10:00 04/06/17 10:00 04/06/17 10:00 04/06/17 10:00 04/06/17 09:00 Microbiology 04/03/17 08:15 Blood - Peripheral Venous Blood Culture - Preliminary NO GROWTH OBTAINED AFTER 72 HOURS, INCUBATION TO CONTINUE FOR 2 DAYS. 04/03/17 06:45 Blood - Peripheral Venous Blood Culture - Preliminary NO GROWTH OBTAINED AFTER 72 HOURS, INCUBATION TO CONTINUE FOR 2 DAYS. Problem List - Problems (1) ESRD (end stage renal disease) on dialysis Assessment/Plan: ID note appreciated. Patient booked for OR on 04/08 and will have a new PC inserted. Medically optimize patient for above procedure. Code(s): N18.6 - END STAGE RENAL DISEASE Z99.2 - DEPENDENCE ON RENAL DIALYSIS
--- NOTE | 2017-04-06 13:12 | PN ---
Physical Exam: SUBJECTIVE: Patient seen and examined. He r leg pain, however he points to his lower abdomen. Denies fever, chills, sob. OBJECTIVE: Vital Signs Period Temp Pulse Resp BP Sys/Hinds Pulse Ox Last 24 Hr 97.0 F-98.4 F 60-64 18-20 94-125/45-60 95-96 PE Neuro:alert, awake, cn 2-12intact Pulm: CTAB CV: s1 s2 rrr no mrg Abd: RLQ tenderness, soft, non distended Ext: no le edema, warm, R third digit amputation Skin: permacath site CDI Laboratory Results - last 24 hr 04/06/17 04/06/17 04/06/17 05:07 05:57 05:57 WBC 5.0 RBC 3.51 L Hgb 10.3 L Hct 31.4 L MCV 89.5 MCHC 32.7 RDW 16.0 H Plt Count 141 MPV 9.0 Neutrophils % 71.9 Lymphocytes % 10.8 Monocytes % 13.5 H Eosinophils % 3.0 Basophils % 0.8 Sodium 139 Potassium 4.1 Chloride 99 Carbon Dioxide 31 Anion Gap 9 BUN 24 H D Creatinine 4.6 H D POC Glucometer 139 Random Glucose 111 H D Calcium 8.6 Active Medications Generic Name Dose Route Start Last Admin Trade Name Freq PRN Reason Stop Dose Admin Apixaban 2.5 mg 03/31/17 22:00 04/06/17 09:36 Eliquis - PO 2.5 mg BID [facility] Administration Aspirin 81 mg 04/01/17 10:00 04/06/17 09:36 Asa - PO 81 mg DAILY [facility] Administration Atorvastatin Calcium 20 mg 03/31/17 22:00 04/05/17 22:09 Lipitor - PO 20 mg HS [facility] Administration Carvedilol 12.5 mg 03/31/17 22:00 04/06/17 09:36 Coreg - PO 12.5 mg BID [facility] Administration Cyclobenzaprine HCl 10 mg 03/31/17 21:59 04/05/17 19:01 Flexeril - PO 10 mg Q8H PRN Administration ARM PAIN Gabapentin 100 mg 04/01/17 10:00 04/06/17 09:36 Neurontin - PO 100 mg DAILY [facility] Administration Hydralazine HCl 50 mg 03/31/17 22:00 04/06/17 09:35 Apresoline - PO 50 mg BID [facility] Administration Insulin Aspart 1 vial 03/31/17 22:00 04/06/17 11:48 Novolog Vial Sliding Scale - SQ Not Given ACHS [facility] Protocol Isosorbide Mononitrate 30 mg 04/01/17 10:00 04/06/17 09:36 Imdur - PO 30 mg DAILY [facility] Administration Pantoprazole Sodium 40 mg 03/31/17 22:00 04/06/17 09:36 Protonix - PO 40 mg BID [facility] Administration Sevelamer Carbonate 800 mg 04/01/17 08:00 04/06/17 11:48 Renvela - PO Not Given TIDCM [facility] Sodium Chloride 250 ml 03/31/17 18:52 Normal Saline - IV Q20M PRN MAP<65mm Hg OR SBP <90 Tamsulosin HCl 0.4 mg 04/01/17 08:30 04/06/17 08:55 Flomax - PO Not Given DAILY@0830 [facility] Microbiology 04/03/17 08:15 Blood - Peripheral Venous Blood Culture - Preliminary NO GROWTH OBTAINED AFTER 72 HOURS, INCUBATION TO CONTINUE FOR 2 DAYS. 04/03/17 06:45 Blood - Peripheral Venous Blood Culture - Preliminary NO GROWTH OBTAINED AFTER 72 HOURS, INCUBATION TO CONTINUE FOR 2 DAYS. 03/31/17 19:10 Blood - Peripheral Venous Blood Culture - Final Staphylococcus Epidermidis 03/31/17 19:00 Blood - Peripheral Venous Blood Culture - Final Staphylococcus Epidermidis 03/31/17 21:41 Urine - Urine - Catheterized Urine Culture - Final 04/01/17 14:20 Nasopharyngeal Swab Influenza Types A,B Antigen (NAVID) - Final 04/01/17 14:20 Nasopharyngeal Swab - Final Imaging: - 04/01 LUE ultrasound with no evidence of DVT. 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 Plan: 1. Staph epi bacteremia - Repeat cultures negative - Will need 6 weeks vanco with HD - Discontinue RAZIA as management would not change at this time 2. ESRD on HD - Permacath placement Wed 6/28 with vascular 10am - Next HD day - D/w Renal 3. BPH - Continue Flomax 4. Hx of RUE DVT - Hold Eliquis starting tonight for permacath 5. Chronic LUE edema - Documented on or before 10/28/16 - US negative for DVT 6. HTN - Coreg 12.5mg BID - Hydralazine 50mg BID 7. CAD s/p stenting - Continue Imdur - Continue ASA 8. Chest Pain - Resolved - Trop x3 negative 9. HLD - Continue Lipitor 10. DM - BGM, ISS, ACHS 11. Right shoulder pain - Point tenderness to humeral head - Xray not done 12. DVT PPX - On Eliquis Visit type - Emergency Visit Emergency Visit: Yes ED Registration Date: 03/31/17 Care time: The patient presented to the Emergency Department on the above date and was hospitalized for further evaluation of their emergent condition. - New Patient This patient is new to me today: Yes Date on this admission: 04/06/17 - Critical Care Critical Care patient: No - Discharge Referral Referred to [facility] No
--- NOTE | 2017-04-06 13:28 | PN ---
Progress Note, Physician History of Present Illness: Pt seen and examined at bedside. He is awake and appears comfortable. He denies shortness of breath. - Current Medication List Current Medications: Active Medications Apixaban (Eliquis -) 2.5 mg PO BID [facility] Last Admin: 04/06/17 09:36 Dose: 2.5 mg Aspirin (Asa -) 81 mg PO DAILY [facility] Last Admin: 04/06/17 09:36 Dose: 81 mg Atorvastatin Calcium (Lipitor -) 20 mg PO HS [facility] Last Admin: 04/05/17 22:09 Dose: 20 mg Carvedilol (Coreg -) 12.5 mg PO BID [facility] Last Admin: 04/06/17 09:36 Dose: 12.5 mg Cyclobenzaprine HCl (Flexeril -) 10 mg PO Q8H PRN PRN Reason: ARM PAIN Last Admin: 04/05/17 19:01 Dose: 10 mg Gabapentin (Neurontin -) 100 mg PO DAILY [facility] Last Admin: 04/06/17 09:36 Dose: 100 mg Hydralazine HCl (Apresoline -) 50 mg PO BID [facility] Last Admin: 04/06/17 09:35 Dose: 50 mg Insulin Aspart (Novolog Vial Sliding Scale -) 1 vial SQ ACHS [facility] PRN Reason: Protocol Last Admin: 04/06/17 11:48 Dose: Not Given Isosorbide Mononitrate (Imdur -) 30 mg PO DAILY [facility] Last Admin: 04/06/17 09:36 Dose: 30 mg Pantoprazole Sodium (Protonix -) 40 mg PO BID [facility] Last Admin: 04/06/17 09:36 Dose: 40 mg Sevelamer Carbonate (Renvela -) 800 mg PO TIDCM [facility] Last Admin: 04/06/17 11:48 Dose: Not Given Sodium Chloride (Normal Saline -) 250 ml IV Q20M PRN PRN Reason: MAP<65mm Hg OR SBP <90 Tamsulosin HCl (Flomax -) 0.4 mg PO DAILY@0830 [facility] Last Admin: 04/06/17 08:55 Dose: Not Given - Objective Vital Signs: Vital Signs Temperature 98 F 04/06/17 10:00 Pulse Rate 64 04/06/17 10:00 Respiratory Rate 18 04/06/17 10:00 Blood Pressure 125/45 04/06/17 10:00 O2 Sat by Pulse Oximetry (%) 95 06/26/17 09:00 Constitutional: Yes: Calm Eyes: Yes: Conjunctiva Clear HENT: Yes: Atraumatic Neck: Yes: Supple Cardiovascular: Yes: S1, S2 Gastrointestinal: Yes: Soft Genitourinary: Yes: WNL Musculoskeletal: Yes: Muscle Weakness Edema: No Neurological: Yes: Oriented Psychiatric: Yes: Oriented Labs: CBC, BMP 04/06/17 05:57 04/06/17 05:57 INR, PTT INR 1.26 (0.82-1.09) H 03/31/17 19:00 Problem List - Problems (1) BPH (benign prostatic hypertrophy) Code(s): N40.0 - BENIGN PROSTATIC HYPERPLASIA WITHOUT LOWER URINRY TRACT SYMP (2) Chronic pain disorder Code(s): G89.4 - CHRONIC PAIN SYNDROME (3) Diabetes Code(s): E11.9 - TYPE 2 DIABETES MELLITUS WITHOUT COMPLICATIONS (4) ESRD (end stage renal disease) on dialysis Code(s): N18.6 - END STAGE RENAL DISEASE Z99.2 - DEPENDENCE ON RENAL DIALYSIS Assessment/Plan Current Medications Generic Name Dose Route Start Last Admin Trade Name Freq PRN Reason Stop Dose Admin Apixaban 2.5 mg 03/31/17 22:00 04/06/17 09:36 Eliquis - PO 2.5 mg BID [facility] Administration Aspirin 81 mg 04/01/17 10:00 04/06/17 09:36 Asa - PO 81 mg DAILY [facility] Administration Atorvastatin Calcium 20 mg 03/31/17 22:00 04/05/17 22:09 Lipitor - PO 20 mg HS [facility] Administration Carvedilol 12.5 mg 03/31/17 22:00 04/06/17 09:36 Coreg - PO 12.5 mg BID [facility] Administration Cyclobenzaprine HCl 10 mg 03/31/17 21:59 04/05/17 19:01 Flexeril - PO 10 mg Q8H PRN Administration ARM PAIN Gabapentin 100 mg 04/01/17 10:00 04/06/17 09:36 Neurontin - PO 100 mg DAILY [facility] Administration Hydralazine HCl 50 mg 03/31/17 22:00 04/06/17 09:35 Apresoline - PO 50 mg BID [facility] Administration Insulin Aspart 1 vial 03/31/17 22:00 04/06/17 11:48 Novolog Vial Sliding Scale - SQ Not Given ACHS [facility] Protocol Isosorbide Mononitrate 30 mg 04/01/17 10:00 04/06/17 09:36 Imdur - PO 30 mg DAILY [facility] Administration Pantoprazole Sodium 40 mg 03/31/17 22:00 04/06/17 09:36 Protonix - PO 40 mg BID [facility] Administration Sevelamer Carbonate 800 mg 04/01/17 08:00 04/06/17 11:48 Renvela - PO Not Given TIDCM [facility] Sodium Chloride 250 ml 03/31/17 18:52 Normal Saline - IV Q20M PRN MAP<65mm Hg OR SBP <90 Tamsulosin HCl 0.4 mg 04/01/17 08:30 04/06/17 08:55 Flomax - PO Not Given DAILY@0830 [facility] Impression 1. ESRD 2. CAD 3. HTN 4. narcotic dependence 5. non compliance 6. pleural effusions 7. anemia 8. chest pain 9. DVT 10. hx GI bleed Plan - 04/03 blood cultures are negative - permacath removed on Thursday - He is going for Permacath on Thu - monitor lytes - cont abx - HD on Thursday - monitor blood pressure - will follow Dr Campos
[2017-04-06] MEDS: CYCLOBENZAPRINE HCL 10 MG TABLET (FP) PO PRN (22:29)
[2017-04-06] MEDS: ATORVASTATIN CA 20 MG TABLET (FP) PO SCH (22:29)
[2017-04-07] MEDS: INSULIN SLIDING SCALE (NOVOLOG) 1 VIAL SQ SCH ×5 (05:47→22:20)
[2017-04-07 08:19] LABS: ANION GAP 10 (8-16); CALCIUM 8.3 mg/dL (8.5-10.1); CO2 30 mmol/L (21-32); GLUCOSE,RANDOM 154 mg/dL (74-106)
[2017-04-07 08:24] LABS: CREATININE 6.1 mg/dL (0.7-1.3)
[2017-04-07] MEDS: SEVELAMER CARBONATE 800 MG TAB (FP) PO SCH ×3 (09:24→18:04)
[2017-04-07] MEDS: hydrALAZINE HCL 25 MG TABLET (FP) PO SCH ×2 (09:24→22:22)
[2017-04-07] MEDS: GABAPENTIN 100 MG CAPSULE (FP) PO SCH (09:24)
[2017-04-07] MEDS: TAMSULOSIN HCL 0.4 MG CAP.ER.24H (FP) PO SCH (09:24)
[2017-04-07] MEDS: ISOSORBIDE MONONITRATE 30 MG TAB.SR.24H (FP) PO SCH (09:25)
[2017-04-07] MEDS: PANTOPRAZOLE 40 MG TABLET (FP) PO SCH ×2 (10:00→22:21)
--- NOTE | 2017-04-07 11:16 | SPA.PREOP ---
- PRE-OP NOTE Dx: ESRD on HD Planned Procedure: Insertion of Permacath Surgeon: Dr. Clay Moore Consent: To be obtained by surgeon after all risks, benefits and alternatives explained. Last Vital Signs Temp Pulse Resp BP Pulse Ox 98 F 50 L 22 130/70 99 04/07/17 09:00 04/07/17 09:00 04/07/17 09:00 04/07/17 09:00 04/07/17 09:00 Lab Results WBC 5.0 K/mm3 (4.0-10.0) 04/06/17 05:57 RBC 3.51 M/mm3 (4.00-5.60) L 04/06/17 05:57 Hgb 10.3 GM/dL (11.7-16.9) L 04/06/17 05:57 Hct 31.4 % (35.4-49) L 04/06/17 05:57 MCV 89.5 fl (80-96) 04/06/17 05:57 MCHC 32.7 g/dl (32.0-35.9) 04/06/17 05:57 RDW 16.0 % (11.9-15.9) H 04/06/17 05:57 Plt Count 141 K/MM3 (134-434) 04/06/17 05:57 Sodium 139 mmol/L (136-145) 04/07/17 05:30 Potassium 4.6 mmol/L (3.5-5.1) 04/07/17 05:30 Chloride 99 mmol/L (98-107) 04/07/17 05:30 Carbon Dioxide 30 mmol/L (21-32) 04/07/17 05:30 Anion Gap 10 (8-16) 04/07/17 05:30 BUN 37 mg/dL (7-18) H D 04/07/17 05:30 Creatinine 6.1 mg/dL (0.7-1.3) H D 04/07/17 05:30 Random Glucose 154 mg/dL (74-106) H D 04/07/17 05:30 Calcium 8.3 mg/dL (8.5-10.1) L 04/07/17 05:30 Blood Type O POSITIVE 03/31/17 18:56 Antibody Screen Negative 03/31/17 18:56 INR 1.26 (0.82-1.09) H 03/31/17 19:00 Microbiology 04/03/17 08:15 Blood - Peripheral Venous Blood Culture - Preliminary NO GROWTH OBTAINED AFTER 96 HOURS, INCUBATION TO CONTINUE FOR 1 DAYS. 04/03/17 06:45 Blood - Peripheral Venous Blood Culture - Preliminary NO GROWTH OBTAINED AFTER 96 HOURS, INCUBATION TO CONTINUE FOR 1 DAYS. - ASSESSMENT/PLAN 1. Make NPO after midnight except po meds 2. GI/DVT PPX 3. Medical optimization / clearance Problem List - Problems (1) End stage renal disease Code(s): N18.6 - END STAGE RENAL DISEASE Visit type - Case Type Case Type: ED Admission
--- NOTE | 2017-04-07 13:51 | PN ---
Physical Exam: SUBJECTIVE: Patient seen and examined. He is awake, no complaints, he says he feels a little better. OBJECTIVE: Vital Signs Period Temp Pulse Resp BP Sys/Hinds Pulse Ox Last 24 Hr 97.2 F-98.4 F 50-70 18-22 120-132/53-70 99-99 PE Neuro:alert, awake, cn 2-12intact Pulm: CTAB CV: s1 s2 rrr no mrg Abd: abd soft, non distended +bs Ext: no le edema, warm, R third digit amputation Skin: permacath site CDI Laboratory Results - last 24 hr 04/07/17 04/07/17 04/07/17 05:30 11:33 11:35 Sodium 139 Potassium 4.6 Chloride 99 Carbon Dioxide 30 Anion Gap 10 BUN 37 H D Creatinine 6.1 H D POC Glucometer 136 Random Glucose 154 H D Calcium 8.3 L Blood Type O POSITIVE Antibody Screen Negative Current Medications Generic Name Dose Route Start Last Admin Trade Name Freq PRN Reason Stop Dose Admin Apixaban 2.5 mg 03/31/17 22:00 04/06/17 09:36 Eliquis - PO 2.5 mg BID [facility] Administration Aspirin 81 mg 04/01/17 10:00 04/06/17 09:36 Asa - PO 81 mg DAILY [facility] Administration Atorvastatin Calcium 20 mg 03/31/17 22:00 04/06/17 22:29 Lipitor - PO 20 mg HS [facility] Administration Carvedilol 12.5 mg 03/31/17 22:00 04/06/17 22:29 Coreg - PO 12.5 mg BID [facility] Administration Cyclobenzaprine HCl 10 mg 03/31/17 21:59 04/06/17 22:29 Flexeril - PO 10 mg Q8H PRN Administration ARM PAIN Gabapentin 100 mg 04/01/17 10:00 04/07/17 09:24 Neurontin - PO 100 mg DAILY [facility] Administration Hydralazine HCl 50 mg 03/31/17 22:00 04/07/17 09:24 Apresoline - PO 50 mg BID [facility] Administration Insulin Aspart 1 vial 04/06/17 13:31 04/07/17 06:34 Novolog Vial Sliding Scale - SQ Not Given ACHS [facility] Protocol Isosorbide Mononitrate 30 mg 04/01/17 10:00 04/07/17 09:25 Imdur - PO 30 mg DAILY [facility] Administration Pantoprazole Sodium 40 mg 03/31/17 22:00 04/06/17 22:29 Protonix - PO 40 mg BID [facility] Administration Sevelamer Carbonate 800 mg 04/01/17 08:00 04/07/17 09:24 Renvela - PO 800 mg TIDCM [facility] Administration Tamsulosin HCl 0.4 mg 04/01/17 08:30 04/07/17 09:24 Flomax - PO 0.4 mg DAILY@0830 [facility] Administration Imaging: - 04/01 LUE ultrasound with no evidence of DVT. 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 Plan: 1. Staph epi bacteremia - Will need 6 weeks vanco with HD - Permacath tomorrow 2. ESRD on HD - Permacath placement tomorrow - HD tomorrow - D/w Renal 3. BPH - Continue Flomax 4. Hx of RUE DVT - Hold Eliquis 04/06 AM 5. Chronic LUE edema - Documented on or before 10/28/16 - US negative for DVT 6. HTN - BP stable - Coreg 12.5mg BID - Hydralazine 50mg BID 7. CAD s/p stenting - Continue Imdur - Hold ASA 8. Chest Pain - Resolved - Trop x3 negative 9. HLD - Continue Lipitor 10. DM - BGM, ISS, ACHS 11. Right shoulder pain - Point tenderness to humeral head - Xray not done 12. DVT PPX - On Eliquis Visit type - Emergency Visit Emergency Visit: Yes ED Registration Date: 03/31/17 Care time: The patient presented to the Emergency Department on the above date and was hospitalized for further evaluation of their emergent condition. - New Patient This patient is new to me today: No - Critical Care Critical Care patient: No
--- NOTE | 2017-04-07 15:52 | PN ---
Progress Note, Physician Chief Complaint: Pt alert; no chest pain or dyspnea; pain "all over". History of Present Illness: The patient is a 66 year old male, with a significant past medical history of anemia, hypertension, hypercholesterolemia, CVA, DVT, CAD s/p CABG, pacemaker and stents, CHF, DM, ESRD (dialysis T,R,S), enlarged prostate and anxiety, who presents to the emergency department via ems for lightheadedness today and altered mental status. As per ems, the patient and his were not offering any pertinent information regarding the patients current symptoms. It is also unclear if the patient received hemodialysis today as scheduled. He denies chest pain, shortness of breath, headache and dizziness. He denies fever, chills, nausea, vomit, diarrhea and constipation. He denies dysuria, frequency, urgency and hematuria. Allergies: NKDA Past surgical history: CABG. Stents. Pacemaker. Cardiac Cath. Right arm fistula Social history: No tobacco use. EtOH and recreational drug use. PCP - Dr. Yrn Torres - Current Medication List Current Medications: Active Medications Apixaban (Eliquis -) 2.5 mg PO BID [facility] Last Admin: 04/06/17 09:36 Dose: 2.5 mg Aspirin (Asa -) 81 mg PO DAILY [facility] Last Admin: 04/06/17 09:36 Dose: 81 mg Atorvastatin Calcium (Lipitor -) 20 mg PO HS [facility] Last Admin: 04/06/17 22:29 Dose: 20 mg Carvedilol (Coreg -) 12.5 mg PO BID [facility] Last Admin: 04/06/17 22:29 Dose: 12.5 mg Cyclobenzaprine HCl (Flexeril -) 10 mg PO Q8H PRN PRN Reason: ARM PAIN Last Admin: 04/06/17 22:29 Dose: 10 mg Gabapentin (Neurontin -) 100 mg PO DAILY [facility] Last Admin: 04/07/17 09:24 Dose: 100 mg Hydralazine HCl (Apresoline -) 50 mg PO BID [facility] Last Admin: 04/07/17 09:24 Dose: 50 mg Insulin Aspart (Novolog Vial Sliding Scale -) 1 vial SQ ACHS [facility] PRN Reason: Protocol Last Admin: 04/07/17 15:10 Dose: Not Given Isosorbide Mononitrate (Imdur -) 30 mg PO DAILY [facility] Last Admin: 04/07/17 09:25 Dose: 30 mg Pantoprazole Sodium (Protonix -) 40 mg PO BID [facility] Last Admin: 04/06/17 22:29 Dose: 40 mg Sevelamer Carbonate (Renvela -) 800 mg PO TIDCM [facility] Last Admin: 04/07/17 15:11 Dose: 800 mg Tamsulosin HCl (Flomax -) 0.4 mg PO DAILY@0830 [facility] Last Admin: 04/07/17 09:24 Dose: 0.4 mg - Objective Vital Signs: Vital Signs Temperature 97.7 F 04/07/17 15:25 Pulse Rate 65 04/07/17 15:25 Respiratory Rate 22 04/07/17 09:00 Blood Pressure 115/56 04/07/17 15:25 O2 Sat by Pulse Oximetry (%) 99 04/07/17 09:00 Constitutional: Yes: Anxious Eyes: Yes: WNL HENT: Yes: WNL Neck: Yes: WNL Cardiovascular: Yes: Murmur (systolic 3/6, RSB-->left axilla), S1, S2 (split) Respiratory: Yes: Diminished Gastrointestinal: Yes: Soft ...Rectal Exam: Yes: Deferred Genitourinary: No: Anuria Musculoskeletal: Yes: Back Pain, Joint Stiffness, Muscle Pain, Muscle Weakness Extremities: Yes: Cool Edema: No Peripheral Pulses WNL: No Peripheral Pulses: Left Doralis Pedis: 1+, Right Dorsalis Pedis: 1+ Integumentary: Yes: Bruising Neurological: Yes: Alert, Weakness Psychiatric: Yes: Other Labs: CBC, BMP 04/06/17 05:57 04/07/17 05:30 INR, PTT INR 1.26 (0.82-1.09) H 03/31/17 19:00 Problem List - Problems (1) Atypical chest pain Code(s): R07.89 - OTHER CHEST PAIN (2) DVT prophylaxis Code(s): [id number] - (3) Anemia Code(s): D64.9 - ANEMIA, UNSPECIFIED Qualifiers: (4) BPH (benign prostatic hypertrophy) Code(s): N40.0 - BENIGN PROSTATIC HYPERPLASIA WITHOUT LOWER URINRY TRACT SYMP (5) Chronic systolic heart failure Assessment/Plan: On beta blockers, hydralazine + Imdur. Consider ACEI, spironolactone (on hemodialysis). Hemodialysis after Permacath insertion tomorrow. Code(s): I50.22 - CHRONIC SYSTOLIC (CONGESTIVE) HEART FAILURE (6) Dependency on pain medication Code(s): F19.20 - OTHER PSYCHOACTIVE SUBSTANCE DEPENDENCE, UNCOMPLICATED (7) Diabetes Code(s): E11.9 - TYPE 2 DIABETES MELLITUS WITHOUT COMPLICATIONS (8) ESRD (end stage renal disease) on dialysis Assessment/Plan: Permacath insertion and hemodialysis in am. Code(s): N18.6 - END STAGE RENAL DISEASE Z99.2 - DEPENDENCE ON RENAL DIALYSIS (9) History of hemiarthroplasty of left hip Code(s): Z96.642 - PRESENCE OF LEFT ARTIFICIAL HIP JOINT (10) Hx of CABG Code(s): Z95.1 - PRESENCE OF AORTOCORONARY BYPASS GRAFT (11) Hyperlipidemia Code(s): E78.5 - HYPERLIPIDEMIA, UNSPECIFIED Qualifiers: Hyperlipidemia type: pure hypercholesterolemia Qualified Code(s): E78.00 - Pure hypercholesterolemia, unspecified; E78.0 - Pure hypercholesterolemia (12) Hypertension Code(s): I10 - ESSENTIAL (PRIMARY) HYPERTENSION Qualifiers: Hypertension type: essential hypertension Qualified Code(s): I10 - Essential (primary) hypertension (13) ICD (implantable cardioverter-defibrillator) in place Assessment/Plan: "reverberation" noted around ICD lead; Afebrile; normal WBC count. On antibiotics; blood cutlures now negative. As discussed with Dr. Gresham (ID), pt is noncompliant to Rxs, is fragile, with multiple comorbidities, and at elevated risk for RAZIA, which is presently deferred. Code(s): Z95.810 - PRESENCE OF AUTOMATIC (IMPLANTABLE) CARDIAC DEFIBRILLATOR (14) Bacteremia Assessment/Plan: On antibiotics; cultures now negative. Pt is afebrile. As discussed with Dr. Gresham, pt is a high-risk candidate for RAZIA. He is also often noncompliant to therapies. Code(s): R78.81 - BACTEREMIA
[2017-04-07] MEDS: CARVEDILOL 12.5 MG TABLET (FP) PO SCH ×2 (16:07→23:00)
--- NOTE | 2017-04-07 16:12 | PN ---
Progress Note, Physician History of Present Illness: Pt seen and examined at bedside. He is awake and appears comfortable. - Current Medication List Current Medications: Active Medications Apixaban (Eliquis -) 2.5 mg PO BID [facility] Last Admin: 04/06/17 09:36 Dose: 2.5 mg Aspirin (Asa -) 81 mg PO DAILY [facility] Last Admin: 04/06/17 09:36 Dose: 81 mg Atorvastatin Calcium (Lipitor -) 20 mg PO HS [facility] Last Admin: 04/06/17 22:29 Dose: 20 mg Carvedilol (Coreg -) 12.5 mg PO BID [facility] Last Admin: 04/06/17 22:29 Dose: 12.5 mg Cyclobenzaprine HCl (Flexeril -) 10 mg PO Q8H PRN PRN Reason: ARM PAIN Last Admin: 04/06/17 22:29 Dose: 10 mg Gabapentin (Neurontin -) 100 mg PO DAILY [facility] Last Admin: 04/07/17 09:24 Dose: 100 mg Hydralazine HCl (Apresoline -) 50 mg PO BID [facility] Last Admin: 04/07/17 09:24 Dose: 50 mg Insulin Aspart (Novolog Vial Sliding Scale -) 1 vial SQ ACHS [facility] PRN Reason: Protocol Last Admin: 04/07/17 15:10 Dose: Not Given Isosorbide Mononitrate (Imdur -) 30 mg PO DAILY [facility] Last Admin: 04/07/17 09:25 Dose: 30 mg Pantoprazole Sodium (Protonix -) 40 mg PO BID [facility] Last Admin: 04/06/17 22:29 Dose: 40 mg Sevelamer Carbonate (Renvela -) 800 mg PO TIDCM [facility] Last Admin: 04/07/17 15:11 Dose: 800 mg Tamsulosin HCl (Flomax -) 0.4 mg PO DAILY@0830 [facility] Last Admin: 04/07/17 09:24 Dose: 0.4 mg - Objective Vital Signs: Vital Signs Temperature 97.7 F 04/07/17 15:25 Pulse Rate 65 04/07/17 15:25 Respiratory Rate 22 04/07/17 09:00 Blood Pressure 115/56 04/07/17 15:25 O2 Sat by Pulse Oximetry (%) 99 04/07/17 09:00 Constitutional: Yes: Calm Eyes: Yes: Conjunctiva Clear HENT: Yes: Atraumatic Neck: Yes: Supple Cardiovascular: Yes: S1, S2 Respiratory: Yes: CTA Bilaterally Gastrointestinal: Yes: Soft Genitourinary: Yes: WNL Musculoskeletal: Yes: WNL Edema: No Neurological: Yes: Oriented Labs: CBC, BMP 04/06/17 05:57 04/07/17 05:30 INR, PTT INR 1.26 (0.82-1.09) H 03/31/17 19:00 Problem List - Problems (1) BPH (benign prostatic hypertrophy) Code(s): N40.0 - BENIGN PROSTATIC HYPERPLASIA WITHOUT LOWER URINRY TRACT SYMP (2) Chronic pain disorder Code(s): G89.4 - CHRONIC PAIN SYNDROME (3) Diabetes Code(s): E11.9 - TYPE 2 DIABETES MELLITUS WITHOUT COMPLICATIONS (4) ESRD (end stage renal disease) on dialysis Code(s): N18.6 - END STAGE RENAL DISEASE Z99.2 - DEPENDENCE ON RENAL DIALYSIS Assessment/Plan Current Medications Generic Name Dose Route Start Last Admin Trade Name Freq PRN Reason Stop Dose Admin Apixaban 2.5 mg 03/31/17 22:00 04/06/17 09:36 Eliquis - PO 2.5 mg BID [facility] Administration Aspirin 81 mg 04/01/17 10:00 04/06/17 09:36 Asa - PO 81 mg DAILY [facility] Administration Atorvastatin Calcium 20 mg 03/31/17 22:00 04/06/17 22:29 Lipitor - PO 20 mg HS [facility] Administration Carvedilol 12.5 mg 03/31/17 22:00 04/07/17 16:07 Coreg - PO Not Given BID [facility] Cyclobenzaprine HCl 10 mg 03/31/17 21:59 04/06/17 22:29 Flexeril - PO 10 mg Q8H PRN Administration ARM PAIN Gabapentin 100 mg 04/01/17 10:00 04/07/17 09:24 Neurontin - PO 100 mg DAILY [facility] Administration Hydralazine HCl 50 mg 03/31/17 22:00 04/07/17 09:24 Apresoline - PO 50 mg BID [facility] Administration Insulin Aspart 1 vial 04/06/17 13:31 04/07/17 15:10 Novolog Vial Sliding Scale - SQ Not Given ACHS [facility] Protocol Isosorbide Mononitrate 30 mg 04/01/17 10:00 04/07/17 09:25 Imdur - PO 30 mg DAILY [facility] Administration Pantoprazole Sodium 40 mg 03/31/17 22:00 04/07/17 10:00 Protonix - PO 40 mg BID [facility] Administration Sevelamer Carbonate 800 mg 04/01/17 08:00 04/07/17 15:11 Renvela - PO 800 mg TIDCM [facility] Administration Tamsulosin HCl 0.4 mg 04/01/17 08:30 04/07/17 09:24 Flomax - PO 0.4 mg DAILY@0830 [facility] Administration Impression 1. ESRD 2. CAD 3. HTN 4. narcotic dependence 5. non compliance 6. pleural effusions 7. anemia 8. chest pain 9. DVT 10. hx GI bleed Plan - 04/03 blood cultures are negative to date - permacath to be placed in am - HD tomorrow after permacath placement - discussed with medical team - NPO past midnight - monitor blood pressure - will follow Dr Campos
[2017-04-07] MEDS: CYCLOBENZAPRINE HCL 10 MG TABLET (FP) PO PRN (22:21)
[2017-04-07] MEDS: ATORVASTATIN CA 20 MG TABLET (FP) PO SCH (22:21)
[2017-04-08] MEDS: INSULIN SLIDING SCALE (NOVOLOG) 1 VIAL SQ SCH ×2 (05:41→06:33)
[2017-04-08 08:21] LABS: INR 1.24 (0.82-1.09); PROTHROMBIN TIME (PATIENT) 13.7 SEC (9.98-11.88)
[2017-04-08 08:42] LABS: ANION GAP 11 (8-16); CALCIUM 8.1 mg/dL (8.5-10.1); CO2 28 mmol/L (21-32); GLUCOSE,RANDOM 136 mg/dL (74-106)
[2017-04-08] MEDS: TAMSULOSIN HCL 0.4 MG CAP.ER.24H (FP) PO SCH (09:33)
[2017-04-08] MEDS: SEVELAMER CARBONATE 800 MG TAB (FP) PO SCH ×3 (09:33→19:01)
[2017-04-08] MEDS ORDERED: MIDAZOLAM HCL 2 MG/2 ML SINGLE DOSE VIAL ONE ×2 (09:40→10:24)
[2017-04-08] MEDS ORDERED: ceFAZolin SODIUM 1 GM VIAL ONE (10:19)
[2017-04-08] MEDS ORDERED: ceFAZolin SODIUM 1 GM VIAL IVPB ONE (10:20)
--- NOTE | 2017-04-08 10:21 | PN ---
Progress Note, Physician History of Present Illness: The patient is a 66 year old male, with a significant past medical history of anemia, hypertension, hypercholesterolemia, CVA, DVT, CAD s/p CABG, pacemaker and stents, CHF, DM, ESRD (dialysis T,R,S), enlarged prostate and anxiety, who presents to the emergency department via ems for lightheadedness today and altered mental status. As per ems, the patient and his were not offering any pertinent information regarding the patients current symptoms. It is also unclear if the patient received hemodialysis today as scheduled. He denies chest pain, shortness of breath, headache and dizziness. He denies fever, chills, nausea, vomit, diarrhea and constipation. He denies dysuria, frequency, urgency and hematuria. Allergies: NKDA Past surgical history: CABG. Stents. Pacemaker. Cardiac Cath. Right arm fistula Social history: No tobacco use. EtOH and recreational drug use. PCP - Dr. Yrn Torres - Current Medication List Current Medications: Active Medications Apixaban (Eliquis -) 2.5 mg PO BID [facility] Last Admin: 04/06/17 09:36 Dose: 2.5 mg Aspirin (Asa -) 81 mg PO DAILY [facility] Last Admin: 04/06/17 09:36 Dose: 81 mg Atorvastatin Calcium (Lipitor -) 20 mg PO HS [facility] Last Admin: 04/07/17 22:21 Dose: 20 mg Carvedilol (Coreg -) 12.5 mg PO BID [facility] Last Admin: 04/07/17 23:00 Dose: 12.5 mg Cyclobenzaprine HCl (Flexeril -) 10 mg PO Q8H PRN PRN Reason: ARM PAIN Last Admin: 04/07/17 22:21 Dose: 10 mg Epoetin Devin (Epogen -) 4,000 units IVPUSH ONCE ONE Stop: 04/08/17 16:13 Gabapentin (Neurontin -) 100 mg PO DAILY [facility] Last Admin: 04/07/17 09:24 Dose: 100 mg Hydralazine HCl (Apresoline -) 50 mg PO BID [facility] Last Admin: 04/07/17 22:22 Dose: 50 mg Insulin Aspart (Novolog Vial Sliding Scale -) 1 vial SQ ACHS [facility] PRN Reason: Protocol Last Admin: 04/08/17 06:33 Dose: Not Given Isosorbide Mononitrate (Imdur -) 30 mg PO DAILY [facility] Last Admin: 04/07/17 09:25 Dose: 30 mg Pantoprazole Sodium (Protonix -) 40 mg PO BID [facility] Last Admin: 04/07/17 22:21 Dose: 40 mg Sevelamer Carbonate (Renvela -) 800 mg PO TIDCM [facility] Last Admin: 04/08/17 09:33 Dose: Not Given Tamsulosin HCl (Flomax -) 0.4 mg PO DAILY@0830 [facility] Last Admin: 04/08/17 09:33 Dose: Not Given - Objective Vital Signs: Vital Signs Temperature 98 F 04/08/17 09:32 Pulse Rate 65 04/08/17 09:32 Respiratory Rate 20 04/08/17 09:32 Blood Pressure 129/64 04/08/17 09:32 O2 Sat by Pulse Oximetry (%) 98 04/07/17 21:00 Eyes: Yes: WNL, Conjunctiva Clear, EOM Intact HENT: Yes: WNL, Atraumatic, Normocephalic Neck: Yes: WNL, Supple, Trachea Midline Cardiovascular: Yes: WNL, Regular Rate and Rhythm Respiratory: Yes: WNL, Regular, CTA Bilaterally Gastrointestinal: Yes: WNL, Normal Bowel Sounds Genitourinary: Yes: WNL Musculoskeletal: Yes: WNL Extremities: Yes: WNL Edema: No Integumentary: Yes: WNL Neurological: Yes: WNL, Alert, Oriented ...Motor Strength: WNL Psychiatric: Yes: WNL Labs: CBC, BMP 04/06/17 05:57 04/08/17 06:02 INR, PTT INR 1.24 (0.82-1.09) H 04/08/17 06:02 Problem List - Problems (1) Atypical chest pain Code(s): R07.89 - OTHER CHEST PAIN (2) DVT prophylaxis Code(s): [id number] - (3) Fluid overload Code(s): E87.70 - FLUID OVERLOAD, UNSPECIFIED Qualifiers: Hypervolemia type: unspecified Qualified Code(s): E87.70 - Fluid overload, unspecified (4) Sepsis Code(s): A41.9 - SEPSIS, UNSPECIFIED ORGANISM Qualifiers: Sepsis type: sepsis due to unspecified organism Qualified Code(s): A41.9 - Sepsis, unspecified organism (5) Anemia Code(s): D64.9 - ANEMIA, UNSPECIFIED Qualifiers: (6) BPH (benign prostatic hypertrophy) Code(s): N40.0 - BENIGN PROSTATIC HYPERPLASIA WITHOUT LOWER URINRY TRACT SYMP (7) Chronic pain disorder Code(s): G89.4 - CHRONIC PAIN SYNDROME (8) Chronic systolic heart failure Code(s): I50.22 - CHRONIC SYSTOLIC (CONGESTIVE) HEART FAILURE (9) Coronary artery disease Code(s): I25.10 - ATHSCL HEART DISEASE OF [place] CORONARY ARTERY W/O ANG PCTRS Qualifiers: Coronary Disease-Associated Artery/Lesion type: [place] artery [place] vs. transplanted heart: [place] heart Associated angina: without angina Qualified Code(s): I25.10 - Atherosclerotic heart disease of [place] coronary artery without angina pectoris (10) DVT (deep venous thrombosis) Code(s): I82.409 - ACUTE EMBOLISM AND THOMBOS UNSP DEEP VN UNSP LOWER EXTREMITY (11) Dependency on pain medication Code(s): F19.20 - OTHER PSYCHOACTIVE SUBSTANCE DEPENDENCE, UNCOMPLICATED (12) Diabetes Code(s): E11.9 - TYPE 2 DIABETES MELLITUS WITHOUT COMPLICATIONS (13) Drug-seeking behavior Code(s): Z72.89 - OTHER PROBLEMS RELATED TO LIFESTYLE (14) ESRD (end stage renal disease) on dialysis Code(s): N18.6 - END STAGE RENAL DISEASE Z99.2 - DEPENDENCE ON RENAL DIALYSIS (15) Hip pain, left Code(s): M25.552 - PAIN IN LEFT HIP (16) History of hemiarthroplasty of left hip Code(s): Z96.642 - PRESENCE OF LEFT ARTIFICIAL HIP JOINT (17) Hx of CABG Code(s): Z95.1 - PRESENCE OF AORTOCORONARY BYPASS GRAFT (18) Hyperlipidemia Code(s): E78.5 - HYPERLIPIDEMIA, UNSPECIFIED Qualifiers: Hyperlipidemia type: pure hypercholesterolemia Qualified Code(s): E78.00 - Pure hypercholesterolemia, unspecified; E78.0 - Pure hypercholesterolemia (19) Hypertension Code(s): I10 - ESSENTIAL (PRIMARY) HYPERTENSION Qualifiers: Hypertension type: essential hypertension Qualified Code(s): I10 - Essential (primary) hypertension (20) ICD (implantable cardioverter-defibrillator) in place Code(s): Z95.810 - PRESENCE OF AUTOMATIC (IMPLANTABLE) CARDIAC DEFIBRILLATOR (21) Noncompliance of patient with renal dialysis Code(s): Z91.15 - PATIENT'S NONCOMPLIANCE WITH RENAL DIALYSIS (22) PAD (peripheral artery disease) Code(s): I73.9 - PERIPHERAL VASCULAR DISEASE, UNSPECIFIED (23) PAF (paroxysmal atrial fibrillation) Code(s): I48.0 - PAROXYSMAL ATRIAL FIBRILLATION (24) PVD (peripheral vascular disease) Code(s): I73.9 - PERIPHERAL VASCULAR DISEASE, UNSPECIFIED (25) S/P mitral valve repair Code(s): Z98.89 - OTHER SPECIFIED POSTPROCEDURAL STATES * DO NOT USE * (26) Status post coronary artery stent placement Code(s): Z95.5 - PRESENCE OF CORONARY ANGIOPLASTY IMPLANT AND GRAFT (27) Status post percutaneous transluminal coronary angioplasty Code(s): Z98.61 - CORONARY ANGIOPLASTY STATUS (28) Type 2 diabetes mellitus Code(s): E11.9 - TYPE 2 DIABETES MELLITUS WITHOUT COMPLICATIONS Qualifiers: Diabetes mellitus complication status: with kidney complications Diabetes mellitus complication detail: with chronic kidney disease Chronic kidney disease stage: on chronic dialysis (29) Unable to ambulate Code(s): R26.2 - DIFFICULTY IN WALKING, NOT ELSEWHERE CLASSIFIED (30) Acute coronary syndrome Code(s): I24.9 - ACUTE ISCHEMIC HEART DISEASE, UNSPECIFIED (31) Chest pain of uncertain etiology Code(s): R07.89 - OTHER CHEST PAIN (32) Hyperkalemia Code(s): E87.5 - HYPERKALEMIA (33) Subtherapeutic international normalized ratio (INR) Code(s): R79.1 - ABNORMAL COAGULATION PROFILE (34) Allergy Code(s): T78.40XA - ALLERGY, UNSPECIFIED, INITIAL ENCOUNTER Qualifiers: Encounter type: initial encounter Qualified Code(s): T78.40XA - Allergy , unspecified, initial encounter (35) Arm edema Code(s): R60.0 - LOCALIZED EDEMA (36) Arm pain Code(s): M79.603 - PAIN IN ARM, UNSPECIFIED Qualifiers: Laterality: left Qualified Code(s): M79.602 - Pain in left arm (37) Chest pain Code(s): R07.9 - CHEST PAIN, UNSPECIFIED (38) End stage renal disease Code(s): N18.6 - END STAGE RENAL DISEASE (39) Fall Code(s): W19.XXXA - UNSPECIFIED FALL, INITIAL ENCOUNTER Qualifiers: Encounter type: initial encounter Qualified Code(s): W19.XXXA - Unspecified fall, initial encounter (40) Head injury Code(s): S09.90XA - UNSPECIFIED INJURY OF HEAD, INITIAL ENCOUNTER Qualifiers: Encounter type: initial encounter Qualified Code(s): S09.90XA - Unspecified injury of head, initial encounter (41) Leg pain, bilateral Code(s): M79.604 - PAIN IN RIGHT LEG M79.605 - PAIN IN LEFT LEG (42) Arm mass Code(s): R22.30 - LOCALIZED SWELLING, MASS AND LUMP, UNSPECIFIED UPPER LIMB Qualifiers: Laterality: left Qualified Code(s): R22.32 - Localized swelling, mass and lump, left upper limb (43) Edema of left forearm Code(s): R60.9 - EDEMA, UNSPECIFIED (44) Hematoma Code(s): T14.8 - OTHER INJURY OF UNSPECIFIED BODY REGION (45) Low back pain Code(s): M54.5 - LOW BACK PAIN Qualifiers: Chronicity: chronic Back pain laterality: unspecified Sciatica presence: without sciatica Qualified Code(s): M54.5 - Low back pain Assessment/Plan Problems (1) Atypical chest pain Code(s): R07.89 - OTHER CHEST PAIN (2) DVT prophylaxis Code(s): [id number] - (3) Anemia Code(s): D64.9 - ANEMIA, UNSPECIFIED Qualifiers: (4) BPH (benign prostatic hypertrophy) Code(s): N40.0 - BENIGN PROSTATIC HYPERPLASIA WITHOUT LOWER URINRY TRACT SYMP (5) Chronic systolic heart failure Assessment/Plan: On beta blockers, hydralazine + Imdur. Consider ACEI, spironolactone (on hemodialysis). Hemodialysis after Permacath insertion tomorrow. Code(s): I50.22 - CHRONIC SYSTOLIC (CONGESTIVE) HEART FAILURE (6) Dependency on pain medication Code(s): F19.20 - OTHER PSYCHOACTIVE SUBSTANCE DEPENDENCE, UNCOMPLICATED (7) Diabetes Code(s): E11.9 - TYPE 2 DIABETES MELLITUS WITHOUT COMPLICATIONS (8) ESRD (end stage renal disease) on dialysis Assessment/Plan: Permacath insertion and hemodialysis in am. Code(s): N18.6 - END STAGE RENAL DISEASE Z99.2 - DEPENDENCE ON RENAL DIALYSIS (9) History of hemiarthroplasty of left hip Code(s): Z96.642 - PRESENCE OF LEFT ARTIFICIAL HIP JOINT (10) Hx of CABG Code(s): Z95.1 - PRESENCE OF AORTOCORONARY BYPASS GRAFT (11) Hyperlipidemia Code(s): E78.5 - HYPERLIPIDEMIA, UNSPECIFIED Qualifiers: Hyperlipidemia type: pure hypercholesterolemia Qualified Code(s): E78.00 - Pure hypercholesterolemia, unspecified; E78.0 - Pure hypercholesterolemia (12) Hypertension Code(s): I10 - ESSENTIAL (PRIMARY) HYPERTENSION Qualifiers: Hypertension type: essential hypertension Qualified Code(s): I10 - Essential (primary) hypertension (13) ICD (implantable cardioverter-defibrillator) in place Assessment/Plan: "reverberation" noted around ICD lead; Afebrile; normal WBC count. On antibiotics; blood cutlures now negative. As discussed with Dr. Gresham (ID), pt is noncompliant to Rxs, is fragile, with multiple comorbidities, and at elevated risk for RAZIA, which is presently deferred. Code(s): Z95.810 - PRESENCE OF AUTOMATIC (IMPLANTABLE) CARDIAC DEFIBRILLATOR (14) Bacteremia Assessment/Plan: On antibiotics; cultures now negative. Pt is afebrile. As discussed with Dr. Gresham, pt is a high-risk candidate for RAZIA. He is also often noncompliant to therapies. Code(s): R78.81 - BACTEREMIA d/c telemetry may be transferred to med -surg
[2017-04-08] MEDS ORDERED: LIDOCAINE HCL 1%, 10 MG/ML (20ML VIAL) IJ ONE (10:30)
[2017-04-08] MEDS ORDERED: ONDANSETRON 4 MG/2 ML VIAL IVPUSH PRN ×2 (10:48→11:32)
--- NOTE | 2017-04-08 10:50 | OP ---
Operative Note - Note: Operative Date: 04/08/17 Pre-Operative Diagnosis: ESRD Operation: Insertion of permacath Post-Operative Diagnosis: Same as Pre-op Surgeon: Clay Moore Anesthesia: Fractional Estimated Blood Loss (mls): 10 Operative Report Dictated: Yes
[2017-04-08] MEDS ORDERED: CYCLOBENZAPRINE HCL 10 MG TABLET (FP) PO PRN (11:32)
[2017-04-08] MEDS ORDERED: EPOETIN ALFA 2,000 UNITS/1 ML VIAL IVPUSH ONE ×2 (14:00→16:12)
--- NOTE | 2017-04-08 15:01 | DS ---
Physical Exam: SUBJECTIVE: Patient seen and examined. He has no complaints, tolerated permacath placement and in HD now OBJECTIVE: Vital Signs Period Temp Pulse Resp BP Sys/Hinds Pulse Ox Last 24 Hr 97.6 F-98.6 F 53-70 7-30 110-148/45-75 94-100 PE Neuro: alert, awake, cn 2-12intact Pulm: CTAB CV: s1 s2 rrr no mrg Abd: abd soft, non distended +bs Ext: no le edema, warm, R third digit amputation Skin: permacath placed Laboratory Results - last 24 hr 04/08/17 04/08/17 04/08/17 06:02 06:02 12:06 INR 1.24 H Sodium 139 Potassium 4.7 Chloride 100 Carbon Dioxide 28 Anion Gap 11 BUN 51 H D Creatinine 7.0 H POC Glucometer 82 Random Glucose 136 H Calcium 8.1 L HOSPITAL COURSE: Date of Admission:03/31/17 Date of Discharge: 04/08/17 Minutes to complete discharge: 36 Discharge Summary Reason For Visit: CHEST PAIN/DIAB TAYLOR/SEPSIS/ESRD Current Active Problems Atypical chest pain (Acute) Bacteremia (Acute) DVT prophylaxis (Acute) Fluid overload (Acute) Sepsis (Acute) Anemia (Chronic) BPH (benign prostatic hypertrophy) (Chronic) Chronic pain disorder (Chronic) Chronic systolic heart failure (Chronic) Coronary artery disease (Chronic) DVT (deep venous thrombosis) (Chronic) Dependency on pain medication (Chronic) Diabetes (Chronic) Drug-seeking behavior (Chronic) ESRD (end stage renal disease) on dialysis (Chronic) Hip pain, left (Chronic) History of hemiarthroplasty of left hip (Chronic) Hx of CABG (Chronic) Hyperlipidemia (Chronic) Hypertension (Chronic) ICD (implantable cardioverter-defibrillator) in place (Chronic) Noncompliance of patient with renal dialysis (Chronic) PAD (peripheral artery disease) (Chronic) PAF (paroxysmal atrial fibrillation) (Chronic) PVD (peripheral vascular disease) (Chronic) S/P mitral valve repair (Chronic) Status post coronary artery stent placement (Chronic) Status post percutaneous transluminal coronary angioplasty (Chronic) Type 2 diabetes mellitus (Chronic) Unable to ambulate (Chronic) Hospital Course: Initial Hospital Course: 66 yo M with a PMHx of anemia, HTN, HLD, CVA, DVT, CAD s/p CAGB, pacemaker and stents, CHF, DM, ESRD (dialysis T,R,S), enlarged prostate and anxiety who presents with lightheadedness and AMS. Upon exam patient reports cough at times and abdominal pain stating he has to have a BM. Patient states his last BM was yesterday. Patient denies chest pain, palpitations, sob, nausea, vomiting and diarrhea. Imaging: - 04/01 LUE ultrasound with no evidence of DVT. 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 Plan: 1. Staph epi bacteremia - Will need 6 weeks vanco with HD stared 04/03 - - Permacath removed 04/04 2. ESRD on HD - Permacath replaced today 04/08 - HD today - D.w neprhologist Dr. Reyes he is aware 3. BPH - Continue Flomax 4. Hx of RUE DVT - Resume Eliquis tomorrow 5. Chronic LUE edema - Documented on or before 10/28/16 - US negative for DVT 6. HTN - BP stable - Coreg 12.5mg BID - Hydralazine 50mg BID 7. CAD s/p stenting - Continue Imdur - Resume ASA tomorrow 8. Chest Pain - Resolved - Trop x3 negative 9. HLD - Continue Lipitor 10. DM II - Sugars stable here Dispo: - Home with services - Son James aware [phone] Condition: Stable - Instructions Diet, Activity, Other Instructions: Please return to the ED for any new, persistent, or worsening symptoms. Follow up with you PCP in 1 week Continue HD You will continue to received antibiotics on HD for 6 weeks (04-06-) Resume home medications as directed on home medication list Disposition: HOME - Home Medications Comprehensive Discharge Medication List: Ambulatory Orders Apixaban [Eliquis -] 2.5 mg PO BID #60 tablet 12/07/16 Aspirin [ASA -] 81 mg PO DAILY #0 tab.chew 12/07/16 Atorvastatin Ca [Lipitor] 20 mg PO HS #0 tablet 12/07/16 Carvedilol [Coreg -] 12.5 mg PO BID #60 tablet 12/07/16 Gabapentin [Neurontin -] 100 mg PO DAILY #0 capsule 12/07/16 Hydralazine HCl [Apresoline -] 50 mg PO BID #0 tablet 12/07/16 Isosorbide Mononitrate [Imdur -] 30 mg PO DAILY #0 tab.sr.24h 12/07/16 Pantoprazole Sodium [Protonix -] 40 mg PO BID #0 tablet.ec 12/07/16 Sevelamer Carbonate [Renvela -] 800 mg PO TIDCM #0 tab 12/07/16 Tamsulosin HCl [Flomax -] 0.4 mg PO DAILY@0830 #0 cap.er.24h 12/07/16 Cyclobenzaprine HCl [Flexeril 10 mg] 10 mg PO Q8H PRN #12 tablet 02/12/17 This patient is new to me today: No Emergency Visit: Yes ED Registration Date: 03/31/17 Care time: The patient presented to the Emergency Department on the above date and was hospitalized for further evaluation of their emergent condition. Critical Care patient: No - Discharge Referral Referred to [facility] Med P.C.: No
[2017-04-08] MEDS ORDERED: INSULIN SLIDING SCALE (NOVOLOG) 1 VIAL SQ SCH (16:30)
[2017-04-08 18:01] VITALS: BP 146/77; PULSE 79
[2017-04-08] MEDS: hydrALAZINE HCL 25 MG TABLET (FP) PO SCH (19:00)
[2017-04-08] MEDS: ISOSORBIDE MONONITRATE 30 MG TAB.SR.24H (FP) PO SCH (19:00)
[2017-04-08] MEDS: CARVEDILOL 12.5 MG TABLET (FP) PO SCH (19:00)
[2017-04-08] MEDS: GABAPENTIN 100 MG CAPSULE (FP) PO SCH (19:01)
[2017-04-08] MEDS: PANTOPRAZOLE 40 MG TABLET (FP) PO SCH (19:01)
[2017-04-08 19:04] VITALS: TEMP 97.5
--- NOTE | 2017-04-08 20:47 | PN ---
Progress Note, Physician History of Present Illness: Pt seen and examined at bedside. He had permacath placed today. He is scheduled for HD. - Objective Vital Signs: Vital Signs Temperature 97.5 F L 04/08/17 17:00 Pulse Rate 79 04/08/17 17:20 Respiratory Rate 18 04/08/17 17:20 Blood Pressure 146/77 04/08/17 17:20 O2 Sat by Pulse Oximetry (%) 100 04/08/17 12:00 Constitutional: Yes: Calm Eyes: Yes: Conjunctiva Clear HENT: Yes: Atraumatic Cardiovascular: Yes: S1, S2 Respiratory: Yes: CTA Bilaterally Gastrointestinal: Yes: Soft Musculoskeletal: Yes: Muscle Weakness Edema: No Neurological: Yes: Oriented Psychiatric: Yes: Oriented Labs: CBC, BMP 04/06/17 05:57 04/08/17 06:02 INR, PTT INR 1.24 (0.82-1.09) H 04/08/17 06:02 Problem List - Problems (1) BPH (benign prostatic hypertrophy) Code(s): N40.0 - BENIGN PROSTATIC HYPERPLASIA WITHOUT LOWER URINRY TRACT SYMP (2) Chronic pain disorder Code(s): G89.4 - CHRONIC PAIN SYNDROME (3) Diabetes Code(s): E11.9 - TYPE 2 DIABETES MELLITUS WITHOUT COMPLICATIONS (4) ESRD (end stage renal disease) on dialysis Code(s): N18.6 - END STAGE RENAL DISEASE Z99.2 - DEPENDENCE ON RENAL DIALYSIS Assessment/Plan Impression 1. ESRD 2. CAD 3. HTN 4. narcotic dependence 5. non compliance 6. pleural effusions 7. anemia 8. chest pain 9. DVT 10. hx GI bleed Plan - HD today - discussed with primary team - spoke to nephrology at HD center and arranged for abx for total of 6 weeks - pt had permacath placed today - monitor blood pressure - will follow Dr Campos
[2017-04-08] MEDS ORDERED: APIXABAN 2.5 MG TABLET PO SCH (22:00)
[2017-04-08] MEDS ORDERED: PANTOPRAZOLE 40 MG TABLET (FP) PO SCH (22:00)
[2017-04-08] MEDS ORDERED: CARVEDILOL 12.5 MG TABLET (FP) PO SCH (22:00)
[2017-04-08] MEDS ORDERED: ATORVASTATIN CA 20 MG TABLET (FP) PO SCH (22:00)
[2017-04-08] MEDS ORDERED: hydrALAZINE HCL 25 MG TABLET (FP) PO SCH (22:00)
[2017-04-09] MEDS ORDERED: TAMSULOSIN HCL 0.4 MG CAP.ER.24H (FP) PO SCH (08:30)
[2017-04-09] MEDS ORDERED: ISOSORBIDE MONONITRATE 30 MG TAB.SR.24H (FP) PO SCH (10:00)
[2017-04-09] MEDS ORDERED: ASPIRIN 81 MG CHEWABLE TABLETS PO SCH (10:00)
[2017-04-09] MEDS ORDERED: GABAPENTIN 100 MG CAPSULE (FP) PO SCH (10:00)
--- NOTE | 2017-04-10 11:13 | OP ---
DATE OF OPERATION: 04/08/2017 PREOPERATIVE DIAGNOSIS: Endstage renal disease. POSTOPERATIVE DIAGNOSIS: Endstage renal disease. PROCEDURE PERFORMED: Insertion of PermCath. SURGEON: Clay Jackson MD ESTIMATED BLOOD LOSS: Approximately 10 mL. INDICATIONS: The patient is a 63-year-old male who came in with a left subclavian PermCath that was infected and had to be removed on Thursday. He is now culture free and renal asked for a new PermCath placement. The patient was consented for the procedure understanding all risks, benefits and alteratives. PROCEDURE IN DETAIL: Once in the operating room, the patient was placed on the operating table in supine position. The right neck and chest were prepped and draped in a sterile surgical manner. Under ultrasound guidance we can see that the right IJ is thrombose and with decided that we would try to cannulate the right subclavian vein. We then went ahead and injected 10 mL of 0.5% lidocaine below the clavicle. We then took our micropuncture needle and punctured below the clavicle and we were able to cannulate the right subclavian vein. The micropuncture wire was inserted under fluoroscopy. A micropuncture sheath was inserted and 0.035 guidewire was inserted. We then went ahead and made a 1-cm incision using an 11 blade at the puncture site. We then went 2 cm below our puncture site and using a 15 blade made a 1-cm incision. We then tunneled the PermCath up to the puncture site. We then placed a breakaway sheath over the guidewire into the vein under fluoroscopy. The cannula and guidewire were removed. The catheter was released around the sheath and the sheath was broken away and the catheter remained inside the vein. Neck of the catheter was tip and the catheter was located inside the right atrium. We then darnell back on each port of the catheter and there was good flow. Heparin was injected. Heparinize saline was injected and 2000 units of IV heparin were injected into each port. We then went ahead and used 4-0 Biosyn with 2 simple sutures were placed at the puncture site, 3-0 nylon used to secure the catheter to the skin. Area was wet and dried, Steri-Strips, 4 x 4, Tegaderm were placed. The patient tolerated the procedure well with no complications. The patient was transferred to the PACU in stable condition where chest x-ray will be obtained. CLAY JACKSON DO [id number]
== END 2017-04-08 18:53 | disposition home or self-care (01) | DRG 286 ==
LOC: JER 18:29 → JERBED 21:08 → UNDOADMIN 23:00 → JERBED 23:00 → J4W 04-01 19:46
PROVIDERS: ADMIT Internal Medicine; ATTEND Nurse Practitioner Acute Care
PROC: 5A1D60Z (ICD-10-PCS; 2017-04-01)
PROC: 02PAX3Z Removal of Infusion Device from Heart, External Approach (ICD-10-PCS; 2017-04-04)
PROC: B2141ZZ Fluoroscopy of Right Heart using Low Osmolar Contrast (ICD-10-PCS; 2017-04-08)
PROC: 02H633Z Insertion of Infusion Device into Right Atrium, Percutaneous Approach (ICD-10-PCS; principal; 2017-04-08 10:00)
DX: T82.7XXA Infection and inflammatory reaction due to other cardiac and vascular devices, implants and grafts, initial encounter (principal); N18.6 End stage renal disease; R78.81 Bacteremia; I13.2 Hypertensive heart and chronic kidney disease with heart failure and with stage 5 chronic kidney disease, or end stage renal disease; I50.22 Chronic systolic (congestive) heart failure; F19.20 Other psychoactive substance dependence, uncomplicated; Z99.2 Dependence on renal dialysis; Z91.15 Patient's noncompliance with renal dialysis; N40.0 Benign prostatic hyperplasia without lower urinary tract symptoms; Z86.718 Personal history of other venous thrombosis and embolism; Z79.01 Long term (current) use of anticoagulants; I25.10 Atherosclerotic heart disease of native coronary artery without angina pectoris; E11.22 Type 2 diabetes mellitus with diabetic chronic kidney disease; Z95.5 Presence of coronary angioplasty implant and graft; Z95.1 Presence of aortocoronary bypass graft; E78.5 Hyperlipidemia, unspecified; Z95.0 Presence of cardiac pacemaker; F41.9 Anxiety disorder, unspecified; Z87.891 Personal history of nicotine dependence; Y83.8 Other surgical procedures as the cause of abnormal reaction of the patient, or of later complication, without mention of misadventure at the time of the procedure; G89.4 Chronic pain syndrome
CPT/HCPCS: 36415; 71010-TC; 76000-TC; 76882; 80048; 80053; 81003; 81015; 82272; 82550; 82565; 82803; 83605; 83735; 84100; 84484; 84520; 85025; 85027; 85610; 85651; 85730; 86140; 86704; 86706; 86708; 86803; 86850; 86900; 86901; 87040; 87086; 87186; 87340; 87804; 93005; 93010; 93306-TC; 93971; 94760; 97116-GP; 97161-GP; 99285-25; G0480; J0885; J1644

== ENCOUNTER 2017-04-11 06:55 | Inpatient (IN) | payer OTHER ==
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
[2017-04-11 07:57] LABS: BASOPHIL 0.6 % (0-2.0); MCH 28.8 pg (25.7-33.7); MCHC 31.5 g/dl (32.0-35.9); MEAN CELL VOLUME 91.4 fl (80-96); MEAN PLT VOLUME 9.1 fl (7.5-11.1); PLATELET COUNT 137 K/MM3 (134-434); RDW 15.8 % (11.9-15.9); WHITE BLOOD COUNT 7.9 K/mm3 (4.0-10.0)
[2017-04-11] MEDS ORDERED: morphine CARPU-JECT 4 MG/1 ML DISP.SYRIN IVPUSH ONE ×2 (07:57→08:49)
[2017-04-11] MEDS ORDERED: OXYCODONE/APAP 5/325MG COMBO TABLET PO ONE (08:25)
[2017-04-11 08:28] LABS: INR 1.11 (0.82-1.09); PROTHROMBIN TIME (PATIENT) 12.2 SEC (9.98-11.88)
[2017-04-11 08:30] LABS: ALBUMIN 3.3 g/dl (3.4-5.0); ALK PHOS 238 U/L (45-117); ANION GAP 12 (8-16); BILIRUBIN,TOTAL 0.6 mg/dL (0.2-1.0); CALCIUM 8.9 mg/dL (8.5-10.1); CO2 23 mmol/L (21-32); CREATININE 6.4 mg/dL (0.7-1.3); MAGNESIUM 2.7 mg/dL (1.8-2.4); PHOSPHOROUS 3.4 mg/dL (2.5-4.9); SGOT/AST 32 U/L (15-37); SGPT/ALT 19 U/L (12-78); TOT PROT 7.8 g/dl (6.4-8.2)
[2017-04-11 08:31] LABS: ACTIVATED PTT 44.5 SECONDS (26.9-34.4)
[2017-04-11 08:32] LABS: TROPONIN I 0.04 ng/ml (0.00-0.05)
[2017-04-11 08:41] LABS: GLUCOSE,RANDOM 498 mg/dL (74-106)
[2017-04-11] MEDS ORDERED: INSULIN REGULAR HUMAN 100 UNITS/ML *VIAL SQ ONE (09:16)
[2017-04-11] MEDS ORDERED: CYCLOBENZAPRINE HCL 10 MG TABLET (FP) PO PRN (09:57)
--- NOTE | 2017-04-11 10:03 | HP ---
Admitting History and Physical - Primary Care Physician PCP: Yrn Torres - Admission Chief Complaint: Chest pain referred from permacath left side to right chest wall History of Present Illness: HPI 66 year old male, with a significant past medical history of anemia, hypertension, hypercholesterolemia, CVA, DVT, CAD s/p CABG, pacemaker, and stents, CHF, DM, ESRD (dialysis T,R,S), enlarged prostate and anxiety, recently discharged on 04/08 for staph bacteriema, presents to ED with chest pain to site of pervious permacath. The area is tender and it refers to the right chest wall. 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: CVA Cardiovascular: Yes: AFIB (paroxysmal), CAD (CABG, PCI/KAT), CHF, Deep Vein Thrombosis, HTN, Hyperlipdemia Renal/: Yes: Renal Failure, Hemodialysis Heme/Onc: Yes: Anemia Psych: Yes: Anxiety Endocrine: Yes: Diabetes Mellitus - Past Surgical History Past Surgical History: Yes: AICD, Amputation (right 3rd finger), CABG (3v CABG and mitral ring 2008 ([place]->LAD, SVG->LPL, SVG->D1 jump D2.), Stent - Smoking History Smoking history: Unknown if ever smoked Have you smoked in the past 12 months: No Aproximately how many cigarettes per day: 0 If you are a former smoker, when did you quit?: 2013 - Alcohol/Substance Use Hx Alcohol Use: No History of Substance Use: reports: Prescription - Social History Usual Living Arrangement: Yes: With Spouse ADL: Independent History of Recent Travel: No Home Medications - Allergies Allergies/Adverse Reactions: Allergies Allergy/AdvReac Type Severity Reaction Status Date / Time No Known Drug Allergies Allergy Verified 04/11/17 07:00 - Home Medications Home Medications: Ambulatory Orders Apixaban [Eliquis -] 2.5 mg PO BID #60 tablet 12/07/16 Aspirin [ASA -] 81 mg PO DAILY #0 tab.chew 12/07/16 Carvedilol [Coreg -] 12.5 mg PO BID #60 tablet 12/07/16 Cyclobenzaprine HCl [Flexeril 10 mg] 10 mg PO Q8H PRN #12 tablet 02/12/17 Atorvastatin Ca [Lipitor] 20 mg PO HS #30 tablet 04/08/17 Gabapentin [Neurontin] 100 mg PO DAILY #30 capsule 04/08/17 Hydralazine HCl [Apresoline -] 50 mg PO BID #60 tablet 04/08/17 Isosorbide Mononitrate [Imdur -] 30 mg PO DAILY #30 tab.sr.24h 04/08/17 Pantoprazole Sodium [Protonix -] 40 mg PO BID #60 tablet.ec 04/08/17 Sevelamer Carbonate [Renvela -] 800 mg PO TIDCM #90 tab 04/08/17 Tamsulosin HCl [Flomax -] 0.4 mg PO DAILY@0830 #30 capsule 04/08/17 Family Disease History - Family Disease History Family Disease History: Diabetes: Brother, Heart Disease: Brother, Other: Father (Stroke) Review of Systems - Review of Systems Constitutional: reports: No Symptoms Eyes: reports: No Symptoms HENT: reports: No Symptoms Neck: reports: No Symptoms Cardiovascular: reports: Chest Pain (left from previous permacath site to right) Respiratory: reports: No Symptoms Gastrointestinal: reports: No Symptoms Genitourinary: reports: No Symptoms Musculoskeletal: reports: No Symptoms Integumentary: reports: No Symptoms Neurological: reports: No Symptoms Endocrine: reports: No Symptoms Hematology/Lymphatic: reports: No Symptoms Psychiatric: reports: No Symptoms Physical Examination Vital Signs: Vital Signs Temperature 97.9 F 04/11/17 07:00 Pulse Rate 88 04/11/17 07:00 Respiratory Rate 18 04/11/17 07:00 Blood Pressure 176/88 04/11/17 07:00 O2 Sat by Pulse Oximetry (%) 97 04/11/17 07:00 Constitutional: Yes: Calm (b/l supra orbital swelling, mild erythema, dry skin) Eyes: Yes: Other (bilateral supra orbital swelling, dry skin, mild erythema) HENT: Yes: Atraumatic Neck: Yes: Supple Cardiovascular: Yes: Regular Rate and Rhythm, S1, S2 Respiratory: Yes: Regular, CTA Bilaterally Gastrointestinal: Yes: Normal Bowel Sounds, Soft Renal/: Yes: Other (RCW permacath) Musculoskeletal: Yes: WNL Extremities: Yes: Amputation (r third digit) Edema: No Peripheral Pulses WNL: Yes Wound/Incision: Yes: Other (previous permacath site with area of flucuance at top, + tenderness) Neurological: Yes: Alert, Oriented, Cran Nerves II-XII Intact ...Motor Strength: WNL Psychiatric: Yes: Alert, Oriented Labs: CBC, BMP 04/11/17 07:41 04/11/17 07:43 Imaging - Results Chest X-ray: Report Reviewed, Image Reviewed Problem List - Problems (1) Chest pain Code(s): R07.9 - CHEST PAIN, UNSPECIFIED (2) DVT prophylaxis Code(s): [id number] - (3) BPH (benign prostatic hypertrophy) Code(s): N40.0 - BENIGN PROSTATIC HYPERPLASIA WITHOUT LOWER URINRY TRACT SYMP (4) Chronic pain disorder Code(s): G89.4 - CHRONIC PAIN SYNDROME (5) Coronary artery disease Code(s): I25.10 - ATHSCL HEART DISEASE OF [place] CORONARY ARTERY W/O ANG PCTRS Qualifiers: Coronary Disease-Associated Artery/Lesion type: [place] artery [place] vs. transplanted heart: [place] heart Associated angina: without angina Qualified Code(s): I25.10 - Atherosclerotic heart disease of [place] coronary artery without angina pectoris (6) ESRD (end stage renal disease) on dialysis Code(s): N18.6 - END STAGE RENAL DISEASE Z99.2 - DEPENDENCE ON RENAL DIALYSIS (7) Hx of CABG Code(s): Z95.1 - PRESENCE OF AORTOCORONARY BYPASS GRAFT (8) Hyperlipidemia Code(s): E78.5 - HYPERLIPIDEMIA, UNSPECIFIED Qualifiers: Hyperlipidemia type: pure hypercholesterolemia Qualified Code(s): E78.00 - Pure hypercholesterolemia, unspecified; E78.0 - Pure hypercholesterolemia (9) Hypertension Code(s): I10 - ESSENTIAL (PRIMARY) HYPERTENSION Qualifiers: Hypertension type: essential hypertension Qualified Code(s): I10 - Essential (primary) hypertension (10) PAF (paroxysmal atrial fibrillation) Code(s): I48.0 - PAROXYSMAL ATRIAL FIBRILLATION (11) Type 2 diabetes mellitus Code(s): E11.9 - TYPE 2 DIABETES MELLITUS WITHOUT COMPLICATIONS Qualifiers: Diabetes mellitus complication status: with kidney complications Diabetes mellitus complication detail: with chronic kidney disease Chronic kidney disease stage: on chronic dialysis (12) Hyperkalemia Code(s): E87.5 - HYPERKALEMIA (13) Atypical chest pain Code(s): R07.89 - OTHER CHEST PAIN (14) Bacteremia Code(s): R78.81 - BACTEREMIA Assessment/Plan Assessment: 65 year old male with ESRD- HD (,,Thu), CHF, CABG, PM, DM, 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 Plan: 1. Elevated lactic acid - ? infected previous permacath site - Trend lactic acid level, will consider fluids after HD lactic acid - Will receive vanco with HD today 2. hx of Staph epi bacteremia - Vanco 6 weeks vanco with HD started 04/03 - 3. ESRD on HD - New Permacath placed 04/08 - HD today - Renal aware 4. HTN - Coreg 12.5mg BID - Hydralazine 50mg BID 5. BPH - Continue Flomax 6. Hx of RUE DVT - Eliquis 2.5mg BID 7. CAD s/p stenting - Continue Imdur - ASA daily 8. Hyperkalemia - Will have HD today - Trend BMP Visit type - Emergency Visit Emergency Visit: Yes ED Registration Date: 04/11/17 Care time: The patient presented to the Emergency Department on the above date and was hospitalized for further evaluation of their emergent condition. - New Patient This patient is new to me today: Yes Date on this admission: 04/11/17 - Critical Care Critical Care patient: No
--- NOTE | 2017-04-11 11:17 | EKG ---
Test Reason : Blood Pressure : / mmHG Vent. Rate : 075 BPM Atrial Rate : 073 BPM P-R Int : 000 ms QRS Dur : 168 ms QT Int : 438 ms P-R-T Axes : 000 130 042 degrees QTc Int : 489 ms POOR DATA QUALITY, INTERPRETATION MAY BE ADVERSELY AFFECTED Ventricular-paced rhythm Biventricular pacemaker detected ABNORMAL ECG WHEN COMPARED WITH ECG OF 31-MAR-2017 18:53, VENT. RATE HAS DECREASED BY 5 BPM Confirmed by SUSAN FLANNERY, ТАТЬЯНА ([id number]) on 04/11/2017 11:17:30 AM Referred By: Confirmed By:ТАТЬЯНА DAVIS MD
[2017-04-11] MEDS: SEVELAMER CARBONATE 800 MG TAB (FP) PO SCH ×2 (12:03→18:04)
[2017-04-11] MEDS: GABAPENTIN 100 MG CAPSULE (FP) PO SCH (12:03)
[2017-04-11] MEDS: CARVEDILOL 12.5 MG TABLET (FP) PO SCH ×2 (12:03→22:10)
[2017-04-11] MEDS: hydrALAZINE HCL 25 MG TABLET (FP) PO SCH ×2 (12:03→22:10)
[2017-04-11] MEDS: ISOSORBIDE MONONITRATE 30 MG TAB.SR.24H (FP) PO SCH (12:03)
[2017-04-11] MEDS: ASPIRIN 81 MG CHEWABLE TABLETS PO SCH (12:03)
[2017-04-11] MEDS: PANTOPRAZOLE 40 MG TABLET (FP) PO SCH ×2 (12:03→22:11)
[2017-04-11] MEDS: APIXABAN 2.5 MG TABLET PO SCH ×2 (12:03→22:10)
--- NOTE | 2017-04-11 16:16 | CONSULT ---
Consult Consult Specialty:: Nephrology Reason for Consultation:: ESRD - History of Present Illness Chief Complaint: discomfort from previous permacath site History of Present Illness: Pt is a 66 year old male with hx of anemia, HTN, chol, CVA, DVT, CAD, ESRD, CHF and DM who presents complaining for discomfort from the previous permacath site. He is awake and alert. He lat dialyzed on . He was discharged from the hospital on as well. He denies fevers or chills. 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: CVA Cardio/Vascular: Yes: AFIB (paroxysmal), CAD (CABG, PCI/KAT), CHF, Deep Vein Thrombosis, HTN, Hyperlipdemia Renal/: Yes: Renal Failure, Hemodialysis Psych: Yes: Anxiety Endocrine: Yes: Diabetes Mellitus - Past Surgical History Past Surgical History: Yes: AICD, Amputation (right 3rd finger), CABG (3v CABG and mitral ring 2009 (GUADALUPE->LAD, SVG->LPL, SVG->D1 jump D2.), Stent - Alcohol/Substance Use Hx Alcohol Use: No History of Substance Use: reports: Prescription - Smoking History Smoking history: Unknown if ever smoked Have you smoked in the past 12 months: No Aproximately how many cigarettes per day: 0 If you are a former smoker, when did you quit?: 2013 - Social History Usual Living Arrangement: With Spouse ADL: Independent History of Recent Travel: No Home Medications - Allergies Allergies/Adverse Reactions: Allergies Allergy/AdvReac Type Severity Reaction Status Date / Time No Known Drug Allergies Allergy Verified 04/11/17 07:00 - Home Medications Home Medications: Ambulatory Orders Apixaban [Eliquis -] 2.5 mg PO BID #60 tablet 12/07/16 Aspirin [ASA -] 81 mg PO DAILY #0 tab.chew 12/07/16 Carvedilol [Coreg -] 12.5 mg PO BID #60 tablet 12/07/16 Cyclobenzaprine HCl [Flexeril 10 mg] 10 mg PO Q8H PRN #12 tablet 02/12/17 Atorvastatin Ca [Lipitor] 20 mg PO HS #30 tablet 04/08/17 Gabapentin [Neurontin] 100 mg PO DAILY #30 capsule 04/08/17 Hydralazine HCl [Apresoline -] 50 mg PO BID #60 tablet 04/08/17 Isosorbide Mononitrate [Imdur -] 30 mg PO DAILY #30 tab.sr.24h 04/08/17 Pantoprazole Sodium [Protonix -] 40 mg PO BID #60 tablet.ec 04/08/17 Sevelamer Carbonate [Renvela -] 800 mg PO TIDCM #90 tab 04/08/17 Tamsulosin HCl [Flomax -] 0.4 mg PO DAILY@0830 #30 capsule 04/08/17 Family Disease History - Family Disease History Family Disease History: Diabetes: Brother, Heart Disease: Brother, Other: Father (Stroke) Review of Systems - Review of Systems Constitutional: reports: No Symptoms Eyes: reports: No Symptoms HENT: reports: No Symptoms Neck: reports: No Symptoms Cardiovascular: reports: No Symptoms Gastrointestinal: reports: No Symptoms Genitourinary: reports: No Symptoms Integumentary: reports: No Symptoms Neurological: reports: No Symptoms Endocrine: reports: No Symptoms Physical Exam Vital Signs: Vital Signs Temperature 97.4 F L 04/11/17 14:46 Pulse Rate 66 04/11/17 14:46 Respiratory Rate 18 04/11/17 14:46 Blood Pressure 133/56 04/11/17 14:46 O2 Sat by Pulse Oximetry (%) 98 04/11/17 14:46 Constitutional: Yes: Calm HENT: Yes: Atraumatic Cardiovascular: Yes: S1, S2 Respiratory: Yes: CTA Bilaterally Gastrointestinal: Yes: Soft Musculoskeletal: Yes: WNL Edema: Yes Edema: LUE: Trace, RUE: Trace Neurological: Yes: Oriented Psychiatric: Yes: Oriented Labs: Laboratory Tests 04/11/17 04/11/17 04/11/17 07:41 07:43 07:43 WBC 7.9 D Hgb 10.2 L Sodium 133 L Potassium 5.9 H D Chloride 98 Carbon Dioxide 23 Anion Gap 12 BUN 60 H Creatinine 6.4 H Lactic Acid 2.4 H* Imaging - Results Chest X-ray: Report Reviewed Problem List - Problems (1) Anemia Code(s): D64.9 - ANEMIA, UNSPECIFIED Qualifiers: (2) BPH (benign prostatic hypertrophy) Code(s): N40.0 - BENIGN PROSTATIC HYPERPLASIA WITHOUT LOWER URINRY TRACT SYMP (3) End stage renal disease Code(s): N18.6 - END STAGE RENAL DISEASE Assessment/Plan Current Medications Generic Name Dose Route Start Last Admin Trade Name Mary PRN Reason Stop Dose Admin Apixaban 2.5 mg 04/11/17 10:00 04/11/17 12:03 Eliquis - PO 2.5 mg BID NGOC Administration Aspirin 81 mg 04/11/17 10:00 04/11/17 12:03 Asa - PO 81 mg DAILY NGOC Administration Atorvastatin Calcium 20 mg 04/11/17 22:00 Lipitor - PO HS NGOC Carvedilol 12.5 mg 04/11/17 10:00 04/11/17 12:03 Coreg - PO 12.5 mg BID NGOC Administration Cyclobenzaprine HCl 10 mg 04/11/17 09:57 Flexeril - PO Q8H PRN ARM PAIN Gabapentin 100 mg 04/11/17 10:00 04/11/17 12:03 Neurontin - PO 100 mg DAILY NGOC Administration Hydralazine HCl 50 mg 04/11/17 10:00 04/11/17 12:03 Apresoline - PO 50 mg BID NGOC Administration Isosorbide Mononitrate 30 mg 04/11/17 10:00 04/11/17 12:03 Imdur - PO 30 mg DAILY NGOC Administration Pantoprazole Sodium 40 mg 04/11/17 10:00 04/11/17 12:03 Protonix - PO 40 mg BID NGOC Administration Sevelamer Carbonate 800 mg 04/11/17 12:00 04/11/17 12:03 Renvela - PO 800 mg TIDCM NGOC Administration Tamsulosin HCl 0.4 mg 04/12/17 08:30 Flomax - PO DAILY@0830 [facility] Impression 1. ESRD 2. CAD 3. HTN 4. narcotic dependence 5. non compliance 6. pleural effusions 7. anemia 8. chest pain 9. DVT 10. hx GI bleed 11. hx bacteremia 12. hyperkalemia Plan - will arrange for urgent dialysis today - vascular follow up for chest wall wound - will give dose of vanco on HD - epogen for anemia - monitor blood pressure - will follow Dr Campos
[2017-04-11] MEDS ORDERED: EPOETIN ALFA 2,000 UNITS/1 ML VIAL IVPUSH ONE (16:17)
[2017-04-11] MEDS ORDERED: VANCOMYCIN 1 GRAM (PRE-DOCKED) 250 ML IVPB ONE (16:18)
[2017-04-11 16:34] VITALS: BMI 21.6
--- NOTE | 2017-04-11 17:55 | PN ---
Progress Note (short form) - Note Progress Note: ID Full note dictated Microbiology Selected Entries 04/11/17 16:00 Temperature 97.2 F L Pulse Rate 64 Respiratory 20 Rate Blood Pressure 116/64 Laboratory Tests 08/13/16 11:05 WBC 7.8 D Hgb 11.9 Plt Count 235 Right permacath Left former permacath site no purulence Microbiology 04/03/17 08:15 Blood - Peripheral Venous Blood Culture - Final NO GROWTH AFTER 5 DAYS INCUBATION 04/03/17 06:45 Blood - Peripheral Venous Blood Culture - Final NO GROWTH AFTER 5 DAYS INCUBATION 03/31/17 19:10 Blood - Peripheral Venous Blood Culture - Final Staphylococcus Epidermidis 03/31/17 19:00 Blood - Peripheral Venous Blood Culture - Final Staphylococcus Epidermidis 12/26/16 16:29 Blood - Peripheral Venous Blood Culture - Final Propionibacterium Acnes Laboratory Tests 04/11/17 07:41 WBC 7.9 D RBC 3.55 L Plt Count 137 Assessmen Transient bacteremia related to permacath 2 D ECHO was neg for vegetations NO fever or WBC elevation now Do not appresciate fluctuance at cath site but could have Surgeon Look at it. Could give another 10 days of Vancomcycin to complete course. Blood cultures ordered Randa FLANNERY
[2017-04-11] MEDS ORDERED: PT OWN MED DRAWER 7, Y5N ONE (20:03)
[2017-04-11] MEDS: ATORVASTATIN CA 20 MG TABLET (FP) PO SCH (22:11)
[2017-04-12] MEDS ORDERED: ACETAMINOPHEN 325 MG TABLET (FP) PO PRN (02:59)
[2017-04-12] MEDS: oxyCODONE HCL 5 MG TABLET PO PRN ×2 (05:05→16:30)
[2017-04-12 07:58] LABS: BASOPHIL 1.2 % (0-2.0); EOSINOPHIL 2.5 % (0-4.5); MCH 29.2 pg (25.7-33.7); MCHC 32.3 g/dl (32.0-35.9); MEAN CELL VOLUME 90.2 fl (80-96); MEAN PLT VOLUME 8.9 fl (7.5-11.1); NEUTROPHILS 80.1 % (42.8-82.8); PLATELET COUNT 159 K/MM3 (134-434); RDW 15.6 % (11.9-15.9); WHITE BLOOD COUNT 5.6 K/mm3 (4.0-10.0)
[2017-04-12] MEDS: SEVELAMER CARBONATE 800 MG TAB (FP) PO SCH ×3 (08:22→17:22)
[2017-04-12 08:24] LABS: ALBUMIN 2.8 g/dl (3.4-5.0); ALK PHOS 202 U/L (45-117); ANION GAP 8 (8-16); BILIRUBIN,TOTAL 0.4 mg/dL (0.2-1.0); CALCIUM 8.5 mg/dL (8.5-10.1); CO2 30 mmol/L (21-32); CREATININE 3.5 mg/dL (0.7-1.3); GLUCOSE,RANDOM 198 mg/dL (74-106); PHOSPHOROUS 3.2 mg/dL (2.5-4.9); SGOT/AST 43 U/L (15-37); SGPT/ALT 22 U/L (12-78); TOT PROT 6.8 g/dl (6.4-8.2); TROPONIN I 0.04 ng/ml (0.00-0.05)
[2017-04-12] MEDS ORDERED: TAMSULOSIN HCL 0.4 MG CAP.ER.24H (FP) PO SCH (08:30)
[2017-04-12] MEDS ORDERED: PT OWN MED DRAWER 7, Y5N ONE ×2 (10:31→20:57)
[2017-04-12] MEDS: CARVEDILOL 12.5 MG TABLET (FP) PO SCH ×2 (11:23→21:00)
[2017-04-12] MEDS: APIXABAN 2.5 MG TABLET PO SCH ×2 (11:23→21:00)
[2017-04-12] MEDS: hydrALAZINE HCL 25 MG TABLET (FP) PO SCH ×2 (11:24→20:59)
[2017-04-12] MEDS: ISOSORBIDE MONONITRATE 30 MG TAB.SR.24H (FP) PO SCH (11:24)
[2017-04-12] MEDS: GABAPENTIN 100 MG CAPSULE (FP) PO SCH (11:24)
[2017-04-12] MEDS: ASPIRIN 81 MG CHEWABLE TABLETS PO SCH (11:25)
[2017-04-12] MEDS: PANTOPRAZOLE 40 MG TABLET (FP) PO SCH ×2 (11:25→21:00)
--- NOTE | 2017-04-12 13:22 | DS ---
Physical Exam: SUBJECTIVE: Patient seen and examined. Pt has no complaints, he says his pain is gone. OBJECTIVE: Vital Signs Period Temp Pulse Resp BP Sys/Hinds Pulse Ox Last 24 Hr 97.2 F-98.5 F 59-96 18-20 106-158/47-76 95-98 PE Neuro: alert, awake, cn 2-12intact Pulm: CTAB CV: s1 s2 rrr no mrg Abd: abd soft, non distended +bs Ext: no le edema, warm, R third digit amputation Skin: permacath placed RCW, previous permacath CDI Laboratory Results - last 24 hr 04/11/17 04/12/17 04/12/17 21:30 06:20 06:20 WBC 5.6 RBC 3.21 L Hgb 9.4 L Hct 29.0 L MCV 90.2 MCHC 32.3 RDW 15.6 Plt Count 159 MPV 8.9 Neutrophils % 80.1 Lymphocytes % 8.3 D Monocytes % 7.9 Eosinophils % 2.5 D Basophils % 1.2 Sodium 139 Potassium 4.1 D Chloride 101 Carbon Dioxide 30 D Anion Gap 8 BUN 24 H D Creatinine 3.5 H D Creat Clearance w eGFR 17.56 Random Glucose 198 H D Lactic Acid 1.5 Calcium 8.5 Phosphorus 3.2 Magnesium 2.0 D Total Bilirubin 0.4 D AST 43 H D ALT 22 Alkaline Phosphatase 202 H Creatine Kinase 41 Troponin I 0.04 Total Protein 6.8 Albumin 2.8 L HOSPITAL COURSE: Date of Admission:04/11/17 Date of Discharge: 04/12/17 Minutes to complete discharge: 36 Discharge Summary Reason For Visit: CHEST PAIN, END STAGE RENAL FAILURE Current Active Problems Chest pain (Acute) DVT prophylaxis (Acute) Fluid overload (Acute) Uncontrolled diabetes mellitus (Acute) Anemia (Chronic) BPH (benign prostatic hypertrophy) (Chronic) Chronic pain disorder (Chronic) Coronary artery disease (Chronic) DVT (deep venous thrombosis) (Chronic) Diabetes (Chronic) Drug-seeking behavior (Chronic) ESRD (end stage renal disease) on dialysis (Chronic) Hip pain, left (Chronic) History of hemiarthroplasty of left hip (Chronic) Hx of CABG (Chronic) Hyperlipidemia (Chronic) Hypertension (Chronic) Noncompliance of patient with renal dialysis (Chronic) PAD (peripheral artery disease) (Chronic) PAF (paroxysmal atrial fibrillation) (Chronic) PVD (peripheral vascular disease) (Chronic) S/P mitral valve repair (Chronic) Status post coronary artery stent placement (Chronic) Status post percutaneous transluminal coronary angioplasty (Chronic) Type 2 diabetes mellitus (Chronic) Unable to ambulate (Chronic) Hospital Course: Initial Hospital Course: 66 year old male, with a significant past medical history of anemia, hypertension, hypercholesterolemia, CVA, DVT, CAD s/p CABG, pacemaker, and stents, CHF, DM, ESRD (dialysis T,R,S), enlarged prostate and anxiety, recently discharged on 04/08 for staph bacteriema, presented to ED with chest pain to site of previous permacath. The area is tender and it refers to the right chest wall. 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 Plan: 1. Elevated lactic acid - ? missed HD on - Resolved with HD 2. hx of Staph epi bacteremia - Re evaluated by ID continue Vanco for 10 more days since 04/03 start - Blood cultures NGTD - Will need to follow up with vascular in wound care next week to eval previous permacath site 3. ESRD on HD - New Permacath placed 04/08 - HD 04/11 - Resume outpt HD [facility] 4. HTN - Coreg 12.5mg BID - Hydralazine 50mg BID 5. BPH - Continue Flomax 6. Hx of RUE DVT - Eliquis 2.5mg BID 7. CAD s/p stenting - Continue Imdur - ASA daily 8. Hyperkalemia - Resolved with HD Dispo: - Home Condition: Stable - Instructions Diet, Activity, Other Instructions: Please return to the ED for any new, persistent, or worsening symptoms. Follow up with your PCP in 1 week Take medications as directed Continue HD MWF Antibiotics with HD for 10 more days Follow up next week in wound care 5th floor with Dr. Moore to evaluate previous wound care site Referrals: Clay Moore MD [Staff Physician] - Yrn Torres MD [Staff Physician] - Disposition: HOME - Home Medications Comprehensive Discharge Medication List: Ambulatory Orders Apixaban [Eliquis -] 2.5 mg PO BID #60 tablet 12/07/16 Aspirin [ASA -] 81 mg PO DAILY #0 tab.chew 12/07/16 Carvedilol [Coreg -] 12.5 mg PO BID #60 tablet 12/07/16 Cyclobenzaprine HCl [Flexeril 10 mg] 10 mg PO Q8H PRN #12 tablet 02/12/17 Atorvastatin Ca [Lipitor] 20 mg PO HS #30 tablet 04/08/17 Gabapentin [Neurontin] 100 mg PO DAILY #30 capsule 04/08/17 Hydralazine HCl [Apresoline -] 50 mg PO BID #60 tablet 04/08/17 Isosorbide Mononitrate [Imdur -] 30 mg PO DAILY #30 tab.sr.24h 04/08/17 Pantoprazole Sodium [Protonix -] 40 mg PO BID #60 tablet.ec 04/08/17 Sevelamer Carbonate [Renvela -] 800 mg PO TIDCM #90 tab 04/08/17 Tamsulosin HCl [Flomax -] 0.4 mg PO DAILY@0830 #30 capsule 04/08/17 Problem List - Problems (1) Chest pain Code(s): R07.9 - CHEST PAIN, UNSPECIFIED (2) DVT prophylaxis Code(s): APK7209 - (3) BPH (benign prostatic hypertrophy) Code(s): N40.0 - BENIGN PROSTATIC HYPERPLASIA WITHOUT LOWER URINRY TRACT SYMP (4) Chronic pain disorder Code(s): G89.4 - CHRONIC PAIN SYNDROME (5) Coronary artery disease Code(s): I25.10 - ATHSCL HEART DISEASE OF [place] CORONARY ARTERY W/O ANG PCTRS Qualifiers: Coronary Disease-Associated Artery/Lesion type: [place] artery [place] vs. transplanted heart: [place] heart Associated angina: without angina Qualified Code(s): I25.10 - Atherosclerotic heart disease of [place] coronary artery without angina pectoris (6) ESRD (end stage renal disease) on dialysis Code(s): N18.6 - END STAGE RENAL DISEASE Z99.2 - DEPENDENCE ON RENAL DIALYSIS (7) Hx of CABG Code(s): Z95.1 - PRESENCE OF AORTOCORONARY BYPASS GRAFT (8) Hyperlipidemia Code(s): E78.5 - HYPERLIPIDEMIA, UNSPECIFIED Qualifiers: Hyperlipidemia type: pure hypercholesterolemia Qualified Code(s): E78.00 - Pure hypercholesterolemia, unspecified; E78.0 - Pure hypercholesterolemia (9) Hypertension Code(s): I10 - ESSENTIAL (PRIMARY) HYPERTENSION Qualifiers: Hypertension type: essential hypertension Qualified Code(s): I10 - Essential (primary) hypertension (10) PAF (paroxysmal atrial fibrillation) Code(s): I48.0 - PAROXYSMAL ATRIAL FIBRILLATION (11) Type 2 diabetes mellitus Code(s): E11.9 - TYPE 2 DIABETES MELLITUS WITHOUT COMPLICATIONS Qualifiers: Diabetes mellitus complication status: with kidney complications Diabetes mellitus complication detail: with chronic kidney disease Chronic kidney disease stage: on chronic dialysis (12) Hyperkalemia Code(s): E87.5 - HYPERKALEMIA (13) Atypical chest pain Code(s): R07.89 - OTHER CHEST PAIN (14) Bacteremia Code(s): R78.81 - BACTEREMIA This patient is new to me today: No Emergency Visit: Yes ED Registration Date: 04/11/17 Care time: The patient presented to the Emergency Department on the above date and was hospitalized for further evaluation of their emergent condition. Critical Care patient: No - Discharge Referral Referred to [facility] Med P.C.: No
--- NOTE | 2017-04-12 13:58 | CONS ---
DATE OF CONSULTATION: 04/11/2017 The patient is a 66-year-old male with end-stage renal disease, who I am asked to see regarding pain and discomfort at a site of a previous perma-catheter recently removed. The patient had a March admission for an infected right perma-catheter, which was removed during his last admission. Blood cultures were positive for Staphylococcus epidermidis and subsequent blood cultures were no growth. He was treated with vancomycin and the recommendation had been for 6 weeks of IV therapy. He had had a 2D echocardiogram done here, which did not show any evidence of vegetations. He does have a permanent pacemaker in place. Essentially he was admitted for the possibility of infection at the site of the former perma-catheter. His white count is normal and he has no fever. PHYSICAL EXAMINATION: Vital Signs: His temperature was 97.2, pulse 64, blood pressure 116/64, respirations 20. General: A chronically ill-appearing male. Neck: Supple. Lungs: Clear to P&A. Heart: S1, S2. Regular rhythm without audible murmur. Abdomen: Soft, nontender. Extremities: Amputation, right 3rd digit. Chest: Symmetrical with a right perma-catheter and former left perma-catheter site with a dry eschar. Mildly tender to touch but no obvious purulence or fluctuance appreciated. White count 7.9, hemoglobin 10.2, platelets 137. Glucose 498. ASSESSMENT: A 65-year-old male, with end-stage renal disease, permanent pacemaker, diabetes mellitus, now with recent Staphylococcus epidermidis bacteremia, and no evidence of infection currently, no evidence of gross infection at the former perma-catheter site. He is afebrile with a normal white count. At this point, given the transient nature of his previous bacteremia, he can probably be treated for another 7 to 10 days of vancomycin at dialysis. This was discussed with his primary care provider. PRIMITIVO DAUGHERTY M.D. [id number]
--- NOTE | 2017-04-12 14:54 | PN ---
Progress Note, Physician History of Present Illness: Pt seen and examined at bedside. He is awake and alert. He denies shortness of breath or chest pain. - Current Medication List Current Medications: Active Medications Apixaban (Eliquis -) 2.5 mg PO BID [facility] Last Admin: 04/12/17 11:23 Dose: 2.5 mg Aspirin (Asa -) 81 mg PO DAILY [facility] Last Admin: 04/12/17 11:25 Dose: 81 mg Atorvastatin Calcium (Lipitor -) 20 mg PO HS [facility] Last Admin: 04/11/17 22:11 Dose: 20 mg Carvedilol (Coreg -) 12.5 mg PO BID [facility] Last Admin: 04/12/17 11:23 Dose: 12.5 mg Cyclobenzaprine HCl (Flexeril -) 10 mg PO Q8H PRN PRN Reason: ARM PAIN Last Admin: 04/12/17 00:31 Dose: 10 mg Gabapentin (Neurontin -) 100 mg PO DAILY [facility] Last Admin: 04/12/17 11:24 Dose: 100 mg Hydralazine HCl (Apresoline -) 50 mg PO BID [facility] Last Admin: 04/12/17 11:24 Dose: 50 mg Isosorbide Mononitrate (Imdur -) 30 mg PO DAILY [facility] Last Admin: 04/12/17 11:24 Dose: 30 mg Oxycodone HCl (Roxicodone -) 5 mg PO Q6H PRN PRN Reason: PAIN Stop: 04/13/17 02:59 Last Admin: 04/12/17 05:05 Dose: 5 mg Pantoprazole Sodium (Protonix -) 40 mg PO BID [facility] Last Admin: 04/12/17 11:25 Dose: 40 mg Sevelamer Carbonate (Renvela -) 800 mg PO TIDCM [facility] Last Admin: 04/12/17 11:22 Dose: 800 mg Tamsulosin HCl (Flomax -) 0.4 mg PO DAILY@0830 [facility] Last Admin: 04/12/17 08:23 Dose: 0.4 mg - Objective Vital Signs: Vital Signs Temperature 98.5 F 04/12/17 06:00 Pulse Rate 65 04/12/17 06:00 Respiratory Rate 18 04/12/17 09:00 Blood Pressure 106/66 04/12/17 06:00 O2 Sat by Pulse Oximetry (%) 96 04/12/17 09:00 Constitutional: Yes: Calm Eyes: Yes: Conjunctiva Clear HENT: Yes: Atraumatic Neck: Yes: Supple Cardiovascular: Yes: S1, S2 Respiratory: Yes: CTA Bilaterally Gastrointestinal: Yes: Normal Bowel Sounds, Soft Genitourinary: Yes: WNL Musculoskeletal: Yes: WNL Edema: LUE: Trace, RUE: Trace Neurological: Yes: Oriented Psychiatric: Yes: Oriented Labs: CBC, BMP 04/12/17 06:20 04/12/17 06:20 INR, PTT INR 1.11 (0.82-1.09) 04/11/17 07:41 Problem List - Problems (1) Anemia Code(s): D64.9 - ANEMIA, UNSPECIFIED Qualifiers: (2) BPH (benign prostatic hypertrophy) Code(s): N40.0 - BENIGN PROSTATIC HYPERPLASIA WITHOUT LOWER URINRY TRACT SYMP (3) End stage renal disease Code(s): N18.6 - END STAGE RENAL DISEASE Assessment/Plan Current Medications Generic Name Dose Route Start Last Admin Trade Name Freq PRN Reason Stop Dose Admin Apixaban 2.5 mg 04/11/17 10:00 04/12/17 11:23 Eliquis - PO 2.5 mg BID NGOC Administration Aspirin 81 mg 04/11/17 10:00 04/12/17 11:25 Asa - PO 81 mg DAILY NGOC Administration Atorvastatin Calcium 20 mg 04/11/17 22:00 04/11/17 22:11 Lipitor - PO 20 mg HS NGOC Administration Carvedilol 12.5 mg 04/11/17 10:00 04/12/17 11:23 Coreg - PO 12.5 mg BID NGOC Administration Cyclobenzaprine HCl 10 mg 04/11/17 09:57 04/12/17 00:31 Flexeril - PO 10 mg Q8H PRN Administration ARM PAIN Gabapentin 100 mg 04/11/17 10:00 04/12/17 11:24 Neurontin - PO 100 mg DAILY NGOC Administration Hydralazine HCl 50 mg 04/11/17 10:00 04/12/17 11:24 Apresoline - PO 50 mg BID NGOC Administration Isosorbide Mononitrate 30 mg 04/11/17 10:00 04/12/17 11:24 Imdur - PO 30 mg DAILY NGOC Administration Oxycodone HCl 5 mg 04/12/17 03:00 04/12/17 05:05 Roxicodone - PO 04/13/17 02:59 5 mg Q6H PRN Administration PAIN Pantoprazole Sodium 40 mg 04/11/17 10:00 04/12/17 11:25 Protonix - PO 40 mg BID NGOC Administration Sevelamer Carbonate 800 mg 04/11/17 12:00 04/12/17 11:22 Renvela - PO 800 mg TIDCM NGOC Administration Tamsulosin HCl 0.4 mg 04/12/17 08:30 04/12/17 08:23 Flomax - PO 0.4 mg DAILY@0830 NGOC Administration Impression 1. ESRD 2. CAD 3. HTN 4. narcotic dependence 5. non compliance 6. pleural effusions 7. anemia 8. chest pain 9. DVT 10. hx GI bleed 11. hx bacteremia 12. hyperkalemia Plan - pt tolerated HD yesterday - next HD on Thursday - cont current meds - cont Vanco per ID - epogen for anemia - monitor blood pressure - will follow Dr Campos
[2017-04-12 19:58] VITALS: BP 116/65; PULSE 62; TEMP 98.1
[2017-04-12] MEDS: ATORVASTATIN CA 20 MG TABLET (FP) PO SCH (21:00)
== END 2017-04-12 20:55 | disposition home or self-care (01) | DRG 699 ==
LOC: JER 06:55 → JERBED 09:39 → J5S 15:33
PROVIDERS: ADMIT Internal Medicine; ATTEND Nurse Practitioner Acute Care
PROC: 5A1D00Z (ICD-10-PCS; principal; 2017-04-11)
DX: E11.22 Type 2 diabetes mellitus with diabetic chronic kidney disease (principal); I13.2 Hypertensive heart and chronic kidney disease with heart failure and with stage 5 chronic kidney disease, or end stage renal disease; R07.9 Chest pain, unspecified; N18.6 End stage renal disease; D64.9 Anemia, unspecified; I50.9 Heart failure, unspecified; Z99.2 Dependence on renal dialysis; Z91.15 Patient's noncompliance with renal dialysis; Z87.891 Personal history of nicotine dependence; I25.10 Atherosclerotic heart disease of native coronary artery without angina pectoris; Z95.1 Presence of aortocoronary bypass graft; Z95.5 Presence of coronary angioplasty implant and graft; N40.0 Benign prostatic hyperplasia without lower urinary tract symptoms; Z86.718 Personal history of other venous thrombosis and embolism; Z79.01 Long term (current) use of anticoagulants; E87.5 Hyperkalemia; F41.9 Anxiety disorder, unspecified
CPT/HCPCS: 36415; 71010-TC; 80053; 82550; 83605; 83735; 83880; 84100; 84484; 85025; 85610; 85730; 87040; 93005; 93010; 99285-25; J0885

== ENCOUNTER 2017-04-14 00:55 | Inpatient (IN) | payer OTHER ==
[2017-04-14] MEDS ORDERED: ASPIRIN 81 MG CHEWABLE TABLETS PO ONE (02:26)
[2017-04-14 02:29] VITALS: BMI 68.5
[2017-04-14] MEDS ORDERED: ASPIRIN 81 MG CHEWABLE TABLETS ONE (02:53)
[2017-04-14 03:18] LABS: ALBUMIN 3.1 g/dl (3.4-5.0); ANION GAP 11 (8-16); BILIRUBIN,TOTAL 0.7 mg/dL (0.2-1.0); CALCIUM 8.5 mg/dL (8.5-10.1); CO2 26 mmol/L (21-32); CREATININE 5.5 mg/dL (0.7-1.3); GLUCOSE,RANDOM 189 mg/dL (74-106); MAGNESIUM 2.2 mg/dL (1.8-2.4); SGOT/AST 34 U/L (15-37); SGPT/ALT 23 U/L (12-78); TOT PROT 7.3 g/dl (6.4-8.2)
[2017-04-14 03:21] LABS: ALK PHOS 190 U/L (45-117); TROPONIN I 0.04 ng/ml (0.00-0.05)
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
[2017-04-14] MEDS: traMADol HCL 50 MG TABLET PO ONE ×2 (05:53→06:06)
[2017-04-14] MEDS: SODIUM POLYSTYRENE SULFONATE 15 GM/60 ML BOTTLE PO ONE ×2 (05:53→06:06)
[2017-04-14 06:16] LABS: BASOPHIL 0.4 % (0-2.0); EOSINOPHIL 0.2 % (0-4.5); MCH 28.9 pg (25.7-33.7); MCHC 32.2 g/dl (32.0-35.9); MEAN CELL VOLUME 89.6 fl (80-96); MEAN PLT VOLUME 9.3 fl (7.5-11.1); NEUTROPHILS 92.8 % (42.8-82.8); PLATELET COUNT 169 K/MM3 (134-434); RDW 15.9 % (11.9-15.9); WHITE BLOOD COUNT 5.6 K/mm3 (4.0-10.0)
[2017-04-14 06:29] LABS: INR 1.42 (0.82-1.09); PROTHROMBIN TIME (PATIENT) 15.7 SEC (9.98-11.88)
[2017-04-14] MEDS ORDERED: CYCLOBENZAPRINE HCL 10 MG TABLET (FP) PO PRN (07:10)
--- NOTE | 2017-04-14 08:22 | HP ---
This is a 66 year old male with PMHx of anemia, hypertension, hypercholesterolemia, CVA, DVT, CAD s/p CABG, pacemaker, and stents, CHF, DM, ESRD (dialysis T,R,S), enlarged prostate and anxiety, recently discharged on for staph bacteriema, then discharged on 04/12, presented back to the ED on 04/13 twice, who now presented to the ED with chest pain and pain all over. He is currently still receiving Vancomycin with dialysis. Currently, denies fever, chills, nausea, vomiting History Source: Patient Limitations to Obtaining History: No Limitations - Past Medical History CLOTHES MODEL: Yes: CVA Cardiovascular: Yes: AFIB (paroxysmal), CAD (CABG, PCI/KAT), CHF, Deep Vein Thrombosis, HTN, Hyperlipdemia Renal/: Yes: Renal Failure, Hemodialysis Heme/Onc: Yes: Anemia Psych: Yes: Anxiety Endocrine: Yes: Diabetes Mellitus - Past Surgical History Past Surgical History: Yes: AICD, Amputation (right 3rd finger), CABG (3v CABG and mitral ring 2009 (GUADALUPE->LAD, SVG->LPL, SVG->D1 jump D2.), Stent - Smoking History Smoking history: Unknown if ever smoked Have you smoked in the past 12 months: No Aproximately how many cigarettes per day: 0 If you are a former smoker, when did you quit?: 2013 - Alcohol/Substance Use Hx Alcohol Use: No History of Substance Use: reports: Prescription - Social History Usual Living Arrangement: Yes: With Spouse ADL: Independent History of Recent Travel: No Home Medications - Allergies Allergies/Adverse Reactions: Allergies Allergy/AdvReac Type Severity Reaction Status Date / Time No Known Drug Allergies Allergy Verified 04/11/17 07:00 - Home Medications Home Medications Medication Instructions Recorded Apixaban [Eliquis -] 2.5 mg PO BID #60 tablet 12/07/16 Aspirin [ASA -] 81 mg PO DAILY #0 tab.chew 12/07/16 Carvedilol [Coreg -] 12.5 mg PO BID #60 tablet 12/07/16 Cyclobenzaprine HCl [Flexeril 10 10 mg PO Q8H PRN #12 tablet 02/12/17 mg] Atorvastatin Ca [Lipitor] 20 mg PO HS #30 tablet 04/08/17 Gabapentin [Neurontin] 100 mg PO DAILY #30 capsule 04/08/17 Hydralazine HCl [Apresoline -] 50 mg PO BID #60 tablet 04/08/17 Isosorbide Mononitrate [Imdur -] 30 mg PO DAILY #30 tab.sr.24h 04/08/17 Pantoprazole Sodium [Protonix -] 40 mg PO BID #60 tablet.ec 04/08/17 Sevelamer Carbonate [Renvela -] 800 mg PO TIDCM #90 tab 04/08/17 Tamsulosin HCl [Flomax -] 0.4 mg PO DAILY@0830 #30 capsule 04/08/17 Family Disease History - Family Disease History Family Disease History: Diabetes: Brother, Heart Disease: Brother, Other: Father (Stroke) Review of Systems - Review of Systems Constitutional: reports: No Symptoms Eyes: reports: No Symptoms HENT: reports: No Symptoms Neck: reports: No Symptoms Cardiovascular: reports: Chest Pain all over, unable to quantify or describe pain Respiratory: reports: No Symptoms Gastrointestinal: reports: No Symptoms Genitourinary: reports: No Symptoms Musculoskeletal: reports: No Symptoms Integumentary: reports: No Symptoms Neurological: reports: No Symptoms Endocrine: reports: No Symptoms Hematology/Lymphatic: reports: No Symptoms Psychiatric: reports: No Symptoms Physical Examination Vital Signs Period Temp Pulse Resp BP Sys/Hinds Pulse Ox Last 24 Hr 98.2 F-98.4 F 60-60 17-18 138-161/67-99 97-99 Constitutional: Yes: Calm Eyes: Yes: Other (bilateral supra orbital swelling, dry skin) HENT: Yes: Atraumatic Neck: Yes: Supple Cardiovascular: Yes: Regular Rate and Rhythm, S1, S2 Respiratory: Yes: Regular, CTA Bilaterally Gastrointestinal: Yes: Normal Bowel Sounds, Soft Renal/: Yes: Other (RCW permacath) Musculoskeletal: Yes: WNL Extremities: Yes: Amputation (r third digit) Edema: No Peripheral Pulses WNL: Yes Wound/Incision: Yes: Other (previous left chest wall permacath site with area of flucuance at top, + erythema) Neurological: Refused neuro exam ...Motor Strength: WNL Psychiatric: Yes: Alert, Oriented Labs: CBCD WBC 5.6 K/mm3 (4.0-10.0) 04/14/17 05:58 RBC 3.46 M/mm3 (4.00-5.60) L 04/14/17 05:58 Hgb 10.0 GM/dL (11.7-16.9) L 04/14/17 05:58 Hct 31.0 % (35.4-49) L 04/14/17 05:58 MCV 89.6 fl (80-96) 04/14/17 05:58 MCHC 32.2 g/dl (32.0-35.9) 04/14/17 05:58 RDW 15.9 % (11.9-15.9) 04/14/17 05:58 Plt Count 169 K/MM3 (134-434) 04/14/17 05:58 MPV 9.3 fl (7.5-11.1) 04/14/17 05:58 CMP Sodium 136 mmol/L (136-145) 04/14/17 02:45 Potassium 6.5 mmol/L (3.5-5.1) H* D 04/14/17 02:45 Chloride 99 mmol/L (98-107) 04/14/17 02:45 Carbon Dioxide 26 mmol/L (21-32) 04/14/17 02:45 Anion Gap 11 (8-16) 04/14/17 02:45 BUN 53 mg/dL (7-18) H 04/14/17 02:45 Creatinine 5.5 mg/dL (0.7-1.3) H 04/14/17 02:45 Creat Clearance w eGFR 10.42 (>60) 04/14/17 02:45 Random Glucose 189 mg/dL (74-106) H 04/14/17 02:45 Calcium 8.5 mg/dL (8.5-10.1) 04/14/17 02:45 Total Bilirubin 0.7 mg/dL (0.2-1.0) 04/14/17 02:45 AST 34 U/L (15-37) D 04/14/17 02:45 ALT 23 U/L (12-78) 04/14/17 02:45 Alkaline Phosphatase 190 U/L (45-117) H 04/14/17 02:45 Total Protein 7.3 g/dl (6.4-8.2) 04/14/17 02:45 Albumin 3.1 g/dl (3.4-5.0) L 04/14/17 02:45 CARDIAC ENZYMES Creatine Kinase 61 IU/L (39-308) 04/14/17 02:45 Troponin I 0.04 ng/ml (0.00-0.05) 04/14/17 02:45 Imaging - Results Chest X-ray: increased lung markings Problem List - Problems (1) Chest pain Code(s): R07.9 - CHEST PAIN, UNSPECIFIED (2) DVT prophylaxis Code(s): FGW7398 - (3) BPH (benign prostatic hypertrophy) Code(s): N40.0 - BENIGN PROSTATIC HYPERPLASIA WITHOUT LOWER URINRY TRACT SYMP (4) Chronic pain disorder Code(s): G89.4 - CHRONIC PAIN SYNDROME (5) Coronary artery disease Code(s): I25.10 - ATHSCL HEART DISEASE OF [place] CORONARY ARTERY W/O ANG PCTRS Qualifiers: Coronary Disease-Associated Artery/Lesion type: false pass artery [place] vs. transplanted heart: false pass heart Associated angina: without angina Qualified Code(s): I25.10 - Atherosclerotic heart disease of false pass coronary artery without angina pectoris (6) ESRD (end stage renal disease) on dialysis Code(s): N18.6 - END STAGE RENAL DISEASE Z99.2 - DEPENDENCE ON RENAL DIALYSIS (7) Hx of CABG Code(s): Z95.1 - PRESENCE OF AORTOCORONARY BYPASS GRAFT (8) Hyperlipidemia Code(s): E78.5 - HYPERLIPIDEMIA, UNSPECIFIED Qualifiers: Hyperlipidemia type: pure hypercholesterolemia Qualified Code(s): E78.00 - Pure hypercholesterolemia, unspecified; E78.0 - Pure hypercholesterolemia (9) Hypertension Code(s): I10 - ESSENTIAL (PRIMARY) HYPERTENSION Qualifiers: Hypertension type: essential hypertension Qualified Code(s): I10 - Essential (primary) hypertension (10) PAF (paroxysmal atrial fibrillation) Code(s): I48.0 - PAROXYSMAL ATRIAL FIBRILLATION (11) Type 2 diabetes mellitus Code(s): E11.9 - TYPE 2 DIABETES MELLITUS WITHOUT COMPLICATIONS Qualifiers: Diabetes mellitus complication status: with kidney complications Diabetes mellitus complication detail: with chronic kidney disease Chronic kidney disease stage: on chronic dialysis (12) Hyperkalemia Code(s): E87.5 - HYPERKALEMIA (13) Atypical chest pain Code(s): R07.89 - OTHER CHEST PAIN (14) Bacteremia Code(s): R78.81 - BACTEREMIA Assessment/Plan Assessment: 65 year old male with ESRD- HD (,,Thu), CHF, CABG, PM, DM, 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 - F/u surgery consult for evaluation 4) ESRD on HD - New Permacath placed 04/08 - HD today - F/u renal consult 5) HTN - Coreg 12.5mg BID - Hydralazine 50mg BID 6) BPH - Continue Flomax 7) Hx of RUE DVT - Eliquis 2.5mg BID 8) CAD s/p stenting - Continue Imdur - ASA daily 9) F/E/N: - Monitor electrolyte - Sodium controlled diet Visit type - Emergency Visit Emergency Visit: Yes ED Registration Date: 04/14/17 Care time: The patient presented to the Emergency Department on the above date and was hospitalized for further evaluation of their emergent condition. - New Patient This patient is new to me today: Yes Date on this admission: 04/14/17 - Critical Care Critical Care patient: No
[2017-04-14] MEDS ORDERED: TAMSULOSIN HCL 0.4 MG CAP.ER.24H (FP) PO SCH (08:30)
[2017-04-14 08:52] LABS: BASOPHIL 0.4 % (0-2.0); EOSINOPHIL 0.1 % (0-4.5); MCH 29.1 pg (25.7-33.7); MCHC 32.2 g/dl (32.0-35.9); MEAN CELL VOLUME 90.4 fl (80-96); MEAN PLT VOLUME 9.4 fl (7.5-11.1); NEUTROPHILS 93.1 % (42.8-82.8); PLATELET COUNT 174 K/MM3 (134-434); RDW 16.3 % (11.9-15.9); WHITE BLOOD COUNT 5.8 K/mm3 (4.0-10.0)
[2017-04-14] MEDS ORDERED: ASPIRIN 81 MG CHEWABLE TABLETS PO SCH (10:00)
[2017-04-14] MEDS ORDERED: ISOSORBIDE MONONITRATE 30 MG TAB.SR.24H (FP) PO SCH (10:00)
[2017-04-14] MEDS ORDERED: GABAPENTIN 100 MG CAPSULE (FP) PO SCH (10:00)
[2017-04-14] MEDS: hydrALAZINE HCL 25 MG TABLET (FP) PO SCH ×2 (10:26→21:17)
[2017-04-14] MEDS: PANTOPRAZOLE 40 MG TABLET (FP) PO SCH ×2 (10:27→21:17)
[2017-04-14] MEDS: CARVEDILOL 12.5 MG TABLET (FP) PO SCH ×2 (10:27→21:17)
[2017-04-14] MEDS: SEVELAMER CARBONATE 800 MG TAB (FP) PO SCH ×3 (10:27→17:08)
[2017-04-14] MEDS: APIXABAN 2.5 MG TABLET PO SCH ×2 (10:27→21:17)
[2017-04-14 11:39] LABS: ANION GAP 10 (8-16); BILIRUBIN,TOTAL 0.6 mg/dL (0.2-1.0); CALCIUM 8.1 mg/dL (8.5-10.1); CO2 27 mmol/L (21-32); GLUCOSE,RANDOM 277 mg/dL (74-106); MAGNESIUM 2.2 mg/dL (1.8-2.4); SGOT/AST 30 U/L (15-37); SGPT/ALT 21 U/L (12-78); TOT PROT 7.3 g/dl (6.4-8.2)
[2017-04-14 11:43] LABS: ALK PHOS 185 U/L (45-117); TROPONIN I 0.04 ng/ml (0.00-0.05)
[2017-04-14] MEDS ORDERED: INSULIN REGULAR HUMAN 100 UNITS/ML *VIAL IVPUSH ONE (12:24)
[2017-04-14] MEDS ORDERED: DEXTROSE 50%-WATER - 25 GM/50 ML VIAL IVPUSH ONE (12:26)
[2017-04-14] MEDS ORDERED: CALCIUM GLUCONATE 10% - 1,000 MG/10 ML VIAL IVPUSH ONE (12:27)
[2017-04-14] MEDS ORDERED: ALBUTEROL SO4 0.083% IH SOL 2.5 MG/3 ML VIAL.NEB. NEB SCH (12:30)
--- NOTE | 2017-04-14 13:08 | EKG ---
Test Reason : Blood Pressure : / mmHG Vent. Rate : 060 BPM Atrial Rate : 047 BPM P-R Int : 000 ms QRS Dur : 166 ms QT Int : 518 ms P-R-T Axes : 067 208 221 degrees QTc Int : 518 ms AV dual-paced rhythm WHEN COMPARED WITH ECG OF 13-APR-2017 14:22, NO SIGNIFICANT CHANGE WAS FOUND Confirmed by TAMAR VIVEROS MD ([id number]) on 04/14/2017 1:08:02 PM Referred By: Confirmed By:TAMAR VIVEROS MD
[2017-04-14] MEDS ORDERED: EPOETIN ALFA 2,000 UNITS/1 ML VIAL IVPUSH ONE (14:00)
--- NOTE | 2017-04-14 14:42 | CONSULT ---
Consult Consult Specialty:: Nephrology Reason for Consultation:: ESRD on HD - History of Present Illness Chief Complaint: chest pain History of Present Illness: Pt is a 66 year old male with pmhx of esrd, dvt, cva, cad s/p cabg, chol and htn who presents to the ER with chest pain. He is due for HD today. He denies fevers or chills. He is awake and alert. I was called to evaluate him for HD. He was also found to be hyperkalemic. He is not compliant with treatment. 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: CVA Cardio/Vascular: Yes: AFIB (paroxysmal), CAD (CABG, PCI/KAT), CHF, Deep Vein Thrombosis, HTN, Hyperlipdemia Renal/: Yes: Renal Failure, Hemodialysis Psych: Yes: Anxiety Endocrine: Yes: Diabetes Mellitus - Past Surgical History Past Surgical History: Yes: AICD, Amputation (right 3rd finger), CABG (3v CABG and mitral ring 2009 (GUADALUPE->LAD, SVG->LPL, SVG->D1 jump D2.), Stent - Alcohol/Substance Use Hx Alcohol Use: No History of Substance Use: reports: Prescription - Smoking History Smoking history: Unknown if ever smoked Have you smoked in the past 12 months: No Aproximately how many cigarettes per day: 0 If you are a former smoker, when did you quit?: 2013 - Social History Usual Living Arrangement: With Spouse ADL: Independent History of Recent Travel: No Home Medications - Allergies Allergies/Adverse Reactions: Allergies Allergy/AdvReac Type Severity Reaction Status Date / Time No Known Drug Allergies Allergy Verified 04/13/17 13:46 - Home Medications Home Medications: Ambulatory Orders Apixaban [Eliquis -] 2.5 mg PO BID #60 tablet 12/07/16 Aspirin [ASA -] 81 mg PO DAILY #0 tab.chew 12/07/16 Carvedilol [Coreg -] 12.5 mg PO BID #60 tablet 12/07/16 Cyclobenzaprine HCl [Flexeril 10 mg] 10 mg PO Q8H PRN #12 tablet 02/12/17 Atorvastatin Ca [Lipitor] 20 mg PO HS #30 tablet 04/08/17 Gabapentin [Neurontin] 100 mg PO DAILY #30 capsule 04/08/17 Hydralazine HCl [Apresoline -] 50 mg PO BID #60 tablet 04/08/17 Isosorbide Mononitrate [Imdur -] 30 mg PO DAILY #30 tab.sr.24h 04/08/17 Pantoprazole Sodium [Protonix -] 40 mg PO BID #60 tablet.ec 04/08/17 Sevelamer Carbonate [Renvela -] 800 mg PO TIDCM #90 tab 04/08/17 Tamsulosin HCl [Flomax -] 0.4 mg PO DAILY@0830 #30 capsule 04/08/17 Family Disease History - Family Disease History Family Disease History: Diabetes: Brother, Heart Disease: Brother, Other: Father (Stroke) Review of Systems - Review of Systems Constitutional: reports: Malaise Eyes: reports: No Symptoms HENT: reports: No Symptoms Neck: reports: No Symptoms Cardiovascular: reports: Chest Pain Gastrointestinal: reports: No Symptoms Genitourinary: reports: No Symptoms Integumentary: reports: No Symptoms Neurological: reports: No Symptoms Endocrine: reports: No Symptoms Hematology/Lymphatic: reports: No Symptoms Psychiatric: reports: No Symptoms Physical Exam Vital Signs: Vital Signs Temperature 98 F 04/14/17 14:14 Pulse Rate 62 04/14/17 14:14 Respiratory Rate 18 04/14/17 14:14 Blood Pressure 104/50 04/14/17 14:14 O2 Sat by Pulse Oximetry (%) 98 04/14/17 10:54 Constitutional: Yes: Calm Eyes: Yes: Conjunctiva Clear HENT: Yes: Atraumatic Cardiovascular: Yes: S1, S2 Respiratory: Yes: CTA Bilaterally Gastrointestinal: Yes: Normal Bowel Sounds, Soft Renal/: Yes: WNL Musculoskeletal: Yes: WNL Edema: Yes Neurological: Yes: Oriented Psychiatric: Yes: Oriented Labs: CBC, BMP 04/14/17 08:45 04/14/17 10:45 Laboratory Tests 04/14/17 04/14/17 04/14/17 02:45 08:45 10:45 Hgb 10.6 L Sodium 136 135 L Potassium 6.5 H* D 6.8 H* Creatinine 6.0 H Creat Clearance w eGFR 9.43 Imaging - Results Chest X-ray: Report Reviewed Problem List - Problems (1) Acute hyperkalemia Code(s): E87.5 - HYPERKALEMIA (2) ESRD (end stage renal disease) on dialysis Code(s): N18.6 - END STAGE RENAL DISEASE Z99.2 - DEPENDENCE ON RENAL DIALYSIS Assessment/Plan Current Medications Generic Name Dose Route Start Last Admin Trade Name Mary PRN Reason Stop Dose Admin Apixaban 2.5 mg 04/14/17 10:00 04/14/17 10:27 Eliquis - PO 2.5 mg BID NGOC Administration Aspirin 81 mg 04/14/17 10:00 04/14/17 10:27 Asa - PO 81 mg DAILY NGOC Administration Atorvastatin Calcium 20 mg 04/14/17 22:00 Lipitor - PO HS NGOC Carvedilol 12.5 mg 04/14/17 10:00 04/14/17 10:27 Coreg - PO 12.5 mg BID NGOC Administration Cyclobenzaprine HCl 10 mg 04/14/17 07:10 Flexeril - PO Q8H PRN ARM PAIN Gabapentin 100 mg 04/14/17 10:00 04/14/17 10:26 Neurontin - PO 100 mg DAILY NGOC Administration Hydralazine HCl 50 mg 04/14/17 10:00 04/14/17 10:26 Apresoline - PO 50 mg BID NGOC Administration Isosorbide Mononitrate 30 mg 04/14/17 10:00 04/14/17 10:27 Imdur - PO 30 mg DAILY NGOC Administration Pantoprazole Sodium 40 mg 04/14/17 10:00 04/14/17 10:27 Protonix - PO 40 mg BID NGOC Administration Sevelamer Carbonate 800 mg 04/14/17 08:00 04/14/17 12:05 Renvela - PO 800 mg TIDCM NGOC Administration Tamsulosin HCl 0.4 mg 04/14/17 08:30 04/14/17 10:27 Flomax - PO 0.4 mg DAILY@0830 NGOC Administration Impression 1. ESRD 2. CAD 3. HTN 4. narcotic dependence 5. non compliance 6. pleural effusions 7. anemia 8. chest pain 9. DVT 10. hx GI bleed 11. hx bacteremia 12. hyperkalemia Plan - will arrange for HD today - pt is now getting HD - he refused medical treatment for hyperkalemia earlier - discussed with hospitalist Dr Campos
[2017-04-14 18:10] LABS: ANION GAP 7 (8-16); CALCIUM 8.4 mg/dL (8.5-10.1); CO2 32 mmol/L (21-32); CREATININE 1.9 mg/dL (0.7-1.3); GLUCOSE,RANDOM 248 mg/dL (74-106)
[2017-04-14 18:22] VITALS: TEMP 97.3
[2017-04-14 18:36] VITALS: BP 140/65; PULSE 75
[2017-04-14] MEDS ORDERED: ATORVASTATIN CA 20 MG TABLET (FP) PO SCH (22:00)
--- NOTE | 2017-04-15 07:07 | DS ---
Physical Examination Vital Signs: Vital Signs Temperature 97.3 F L 04/14/17 17:00 Pulse Rate 75 04/14/17 17:00 Respiratory Rate 18 04/14/17 17:00 Blood Pressure 140/65 04/14/17 17:00 O2 Sat by Pulse Oximetry (%) 98 04/14/17 10:54 Labs: CBC, BMP 04/14/17 08:45 04/14/17 17:00 Discharge Summary Reason For Visit: END STAGE RENAL FAILURE ON DIALYSIS Current Active Problems Acute hyperkalemia (Acute) Atypical chest pain (Acute) DVT prophylaxis (Acute) Fluid overload (Acute) Anemia (Chronic) BPH (benign prostatic hypertrophy) (Chronic) Chronic pain disorder (Chronic) Coronary artery disease (Chronic) DVT (deep venous thrombosis) (Chronic) Diabetes (Chronic) Drug-seeking behavior (Chronic) ESRD (end stage renal disease) on dialysis (Chronic) Hematoma (Chronic) Hip pain, left (Chronic) History of hemiarthroplasty of left hip (Chronic) Hx of CABG (Chronic) Hyperlipidemia (Chronic) Hypertension (Chronic) Noncompliance of patient with renal dialysis (Chronic) PAD (peripheral artery disease) (Chronic) PAF (paroxysmal atrial fibrillation) (Chronic) PVD (peripheral vascular disease) (Chronic) S/P mitral valve repair (Chronic) Status post coronary artery stent placement (Chronic) Status post percutaneous transluminal coronary angioplasty (Chronic) Type 2 diabetes mellitus (Chronic) Unable to ambulate (Chronic) Hospital Course: Left AMA Condition: Stable - Instructions Disposition: HOME - Home Medications Comprehensive Discharge Medication List: Ambulatory Orders Apixaban [Eliquis -] 2.5 mg PO BID #60 tablet 12/07/16 Aspirin [ASA -] 81 mg PO DAILY #0 tab.chew 12/07/16 Carvedilol [Coreg -] 12.5 mg PO BID #60 tablet 12/07/16 Cyclobenzaprine HCl [Flexeril 10 mg] 10 mg PO Q8H PRN #12 tablet 02/12/17 Atorvastatin Ca [Lipitor] 20 mg PO HS #30 tablet 04/08/17 Gabapentin [Neurontin] 100 mg PO DAILY #30 capsule 04/08/17 Hydralazine HCl [Apresoline -] 50 mg PO BID #60 tablet 04/08/17 Isosorbide Mononitrate [Imdur -] 30 mg PO DAILY #30 tab.sr.24h 04/08/17 Pantoprazole Sodium [Protonix -] 40 mg PO BID #60 tablet.ec 04/08/17 Sevelamer Carbonate [Renvela -] 800 mg PO TIDCM #90 tab 04/08/17 Tamsulosin HCl [Flomax -] 0.4 mg PO DAILY@0830 #30 capsule 04/08/17
== END 2017-04-14 22:40 | disposition home or self-care (01) | DRG 313 ==
LOC: JER 00:55 → JERBED 06:04 → OBSVTOIN 07:11 → J4W 08:49
PROVIDERS: ADMIT Internal Medicine; ATTEND Registered Nurse
DX: R07.89 Other chest pain (principal); N18.6 End stage renal disease; I13.2 Hypertensive heart and chronic kidney disease with heart failure and with stage 5 chronic kidney disease, or end stage renal disease; D64.9 Anemia, unspecified; I25.10 Atherosclerotic heart disease of native coronary artery without angina pectoris; Z95.1 Presence of aortocoronary bypass graft; E11.22 Type 2 diabetes mellitus with diabetic chronic kidney disease; Z99.2 Dependence on renal dialysis; Z86.718 Personal history of other venous thrombosis and embolism; Z95.0 Presence of cardiac pacemaker; E78.00 Pure hypercholesterolemia, unspecified; I50.9 Heart failure, unspecified; F41.9 Anxiety disorder, unspecified; Z95.5 Presence of coronary angioplasty implant and graft; N40.0 Benign prostatic hyperplasia without lower urinary tract symptoms; G89.29 Other chronic pain; E87.5 Hyperkalemia; I48.0 Paroxysmal atrial fibrillation; I73.9 Peripheral vascular disease, unspecified
CPT/HCPCS: 36415; 71010-TC; 80048; 80053; 82550; 83735; 84100; 84484; 85025; 85610; 93005; 93010; 99283-25; 99285-25; G0378; J0885

== ENCOUNTER 2017-04-18 22:17 | Inpatient (IN) | payer OTHER ==
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
[2017-04-19 01:54] LABS: MCH 29.2 pg (25.7-33.7); MCHC 32.3 g/dl (32.0-35.9); MEAN CELL VOLUME 90.4 fl (80-96); MEAN PLT VOLUME 9.3 fl (7.5-11.1); PLATELET COUNT 144 K/MM3 (134-434); RDW 17.3 % (11.9-15.9); WHITE BLOOD COUNT 4.7 K/mm3 (4.0-10.0)
[2017-04-19 02:17] LABS: ALBUMIN 3.1 g/dl (3.4-5.0); ANION GAP 10 (8-16); BILIRUBIN,TOTAL 0.6 mg/dL (0.2-1.0); CO2 27 mmol/L (21-32); CREATININE 5.2 mg/dL (0.7-1.3); GLUCOSE,RANDOM 127 mg/dL (74-106); SGOT/AST 22 U/L (15-37); SGPT/ALT 19 U/L (12-78)
[2017-04-19 02:18] LABS: ALK PHOS 172 U/L (45-117); TOT PROT 7.5 g/dl (6.4-8.2)
--- NOTE | 2017-04-19 03:00 | PDOC ---
Attending Attestation - Resident Resident Name: Ryan Smith - ED Attending Attestation I have performed the following: I have examined & evaluated the patient, The case was reviewed & discussed with the resident, I agree w/resident's findings & plan, Exceptions are as noted - HPI HPI: 04/19/17 02:55 Patient is a 66-year-old male with history of end-stage renal disease on hemodialysis, hypertension and peripheral vascular disease brought in by EMS for pain at the insertion site of the right subclavian hemodialysis catheter, intermittent bleeding at the site and missed dialysis for the past 4 days. Patient complains of mild shortness of breath. Patient denies fevers/chills/ nausea/vomiting. - Physicial Exam PE: 04/19/17 02:56 In the ER, patient is awake and alert, with facial plethora, edema of the face, neck chest, back and upper abdomen, with no lower extremity edema and severe muscle wasting of the lower extremities bilaterally. Patient has pitting edema of the upper extremities (left greater than right) there is pitting edema of the soft tissues of the chest, abdominal wall and the back; right hand reveals amputation of the second and fourth digits; tunneled right subclavian catheter is noted with no active bleeding or evidence of acute infection. Left anterior chest reveals a 2.5 cm quite related eshcar with no drainage or erythema. - Medical Decision Making 04/19/17 02:58 Patient is a 66-year-old male with end-stage renal disease, hypertension peripheral vascular disease who presents with signs and symptoms of SVC syndrome. Right upper extremity Doppler ultrasound reveals no evidence of DVT. CT of chest without IV contrast reveals diffuse subcutaneous edema. CBC is unchanged. CMP reveals no evidence of elevated potassium. Patient will require hemodialysis and evaluation by vascular surgery for possible venogram. Will admit. 04/19/17 03:00 Patient does not require IV as he does not require IV fluids or parenteral narcotics at this time.
--- NOTE | 2017-04-19 04:14 | HP ---
CHIEF COMPLAINT: " i missed dialysis because my chest is bleeding. PCP: HISTORY OF PRESENT ILLNESS: This is a 66 year old male with PMH of anemia, HTN, HLD, CVA, DVT, CAD s/p CABG and stents, pacemaker, CHF, DM, ESRD (dialysis T,R,S), enlarged prostate and anxiety, BIBEMS due to pain and bleeding at the entry site of the R subclavian HD catheter, which caused him to miss HD x 4 d (missed 2 sessions). He was recently d/cd 04/15, at which time his L catheter site was evaluated with bedside US, appearing like hematoma. He has history of multiple admissions due to HD noncompliance. He reports mild sob and mild cough, not changed from baseline. Patient denies fevers/chills/nausea/vomiting/diarrhea. He has chronic reproducible anterior L chest wall pain. He is unsure of weight change. He has chronic diffuse torsal and extremity edema. ER course was notable for: (1)labs (2)ct chest w/o contrast, duplex (3)ekg unremarkable Recent Travel: denies PAST MEDICAL HISTORY: as above PAST SURGICAL HISTORY: as above Social History: Smoking: denies Alcohol:denies Drugs: denies Family History: Allergies No Known Drug Allergies Allergy (Verified 04/18/17 22:44) HOME MEDICATIONS: Home Medications Medication Instructions Recorded Apixaban [Eliquis -] 2.5 mg PO BID #60 tablet 12/07/16 Aspirin [ASA -] 81 mg PO DAILY #0 tab.chew 12/07/16 Carvedilol [Coreg -] 12.5 mg PO BID #60 tablet 12/07/16 Cyclobenzaprine HCl [Flexeril 10 10 mg PO Q8H PRN #12 tablet 02/12/17 mg] Atorvastatin Ca [Lipitor] 20 mg PO HS #30 tablet 04/08/17 Gabapentin [Neurontin] 100 mg PO DAILY #30 capsule 04/08/17 Hydralazine HCl [Apresoline -] 50 mg PO BID #60 tablet 04/08/17 Isosorbide Mononitrate [Imdur -] 30 mg PO DAILY #30 tab.sr.24h 04/08/17 Pantoprazole Sodium [Protonix -] 40 mg PO BID #60 tablet.ec 04/08/17 Sevelamer Carbonate [Renvela -] 800 mg PO TIDCM #90 tab 04/08/17 Tamsulosin HCl [Flomax -] 0.4 mg PO DAILY@0830 #30 capsule 04/08/17 REVIEW OF SYSTEMS CONSTITUTIONAL: Absent: fever, chills, weight change HEENT: Absent: rhinorrhea, nasal congestion, throat pain Absent: chest pain, syncope, palpitations RESPIRATORY: Absent: orthopnea, wheezing, stridor, hemoptysis GASTROINTESTINAL: Absent: abdominal pain, abdominal distension, nausea, vomiting, diarrhea, constipation GENITOURINARY: Absent: dysuria, flank pain MUSCULOSKELETAL: Absent: myalgia, arthralgia SKIN: Absent: rash, itching, pallor HEMATOLOGIC/IMMUNOLOGIC: Absent: easy bleeding, easy bruising ENDOCRINE: Absent: unexplained weight gain, unexplained weight loss NEUROLOGIC: Absent: headache, focal weakness or paresthesias, dizziness PSYCHIATRIC: Absent: anxiety, depression PHYSICAL EXAMINATION Vital Signs - 24 hr 04/18/17 04/18/17 22:40 23:35 Temperature 97.5 F L Pulse Rate 64 Respiratory 17 Rate Blood Pressure 170/80 O2 Sat by Pulse 97 97 Oximetry (%) GENERAL: Awake, alert, and fully oriented, in no acute distress. HEAD: Normal with no signs of trauma, facial and neck fullness appears at baseline. EYES: Pupils equal, round and reactive to light, extraocular movements intact, sclera anicteric, conjunctiva clear. No lid lag. EARS, NOSE, THROAT: Moist mucous membranes. NECK: Normal range of motion, supple without JVD LUNGS: mild bibasilar crackles HEART: rrr, frequent premature beats , normal S1 and S2 ABDOMEN: Soft, nontender, not distended, reduced bowel sounds, no guarding, no rebound, no masses. MUSCULOSKELETAL: No CVA tenderness. L chest wall tenderness, hematoma still present, appears smaller, no sign of cellulitis. not actively bleeding from scab , R sided port clear entry site. 1+ pitting edema in upper extremities unchanged from baseline. UPPER EXTREMITIES: 2+ pulses, warm, well-perfused. No cyanosis. No clubbing. 1+ peripheral edema. LOWER EXTREMITIES: 1+ pulses, warm, well-perfused. No calf tenderness. No peripheral edema. NEUROLOGICAL: Cranial nerves II-XII grossly intact. Normal speech. PSYCHIATRIC: Cooperative. Good eye contact. Appropriate mood and affect. SKIN: Warm, dry, lesion as above Laboratory Results - last 24 hr 04/19/17 04/19/17 01:45 01:45 WBC 4.7 RBC 3.16 L Hgb 9.2 L D Hct 28.6 L MCV 90.4 MCH 29.2 MCHC 32.3 RDW 17.3 H Plt Count 144 MPV 9.3 Neutrophils % Y Lymphocytes % Y Sodium 137 Potassium 5.0 D Chloride 100 Carbon Dioxide 27 Anion Gap 10 BUN 55 H D Creatinine 5.2 H D Creat Clearance w eGFR 11.12 Random Glucose 127 H D Calcium 8.0 L Total Bilirubin 0.6 AST 22 D ALT 19 Alkaline Phosphatase 172 H Total Protein 7.5 Albumin 3.1 L ASSESSMENT/PLAN: This is a 66 year old male with PMH of anemia, HTN, HLD, CVA, DVT, CAD s/p CABG and stents, pacemaker, CHF, DM, ESRD (dialysis T,R,S), enlarged prostate and anxiety, BIBEMS due to pain and bleeding at the entry site of the R subclavian HD catheter, which caused him to miss HD x 4 d. ESRD on HD, missed 2 HD sessions -lytes stable -appears at volume status baseline or slightly overloaded -CT chest shows diffuse subq edema but patient appears at baseline -renal consult to arrange for AM HD to take off possible extra fluid Bleeding from old L subclavicular catheter site -not acutely bleeding, h/h stable -previoulsy site of subq hematoma -no evidence of cellulitis or abscess -vascular contacted by ER HTN -Coreg 12.5mg BID -Hydralazine 50mg BID BPH -Continue Flomax DM -sliding scale -BGM achs Hx of RUE DVT -LUE duplex negative for dvt -Eliquis 2.5mg BID CAD s/p stenting -Continue Imdur -ASA daily FEN -no ivf -lytes stable -renal diet Na restricted -PPI, eliquis Dispo: obs med bianca Visit type - Emergency Visit Emergency Visit: Yes ED Registration Date: 04/19/17 Care time: The patient presented to the Emergency Department on the above date and was hospitalized for further evaluation of their emergent condition. - New Patient This patient is new to me today: No - Critical Care Critical Care patient: No
--- NOTE | 2017-04-19 05:09 | PN ---
Teaching Attending Note Name of Resident: Staci Parekh ATTENDING PHYSICIAN STATEMENT I saw and evaluated the patient. Reviewed chart, available data, imaging I reviewed the resident's note and discussed the case with the resident. I agree with the resident's findings and plan as documented except for modifications in attending note. SUBJECTIVE: Patient c/o missing hemodialysis and some vague complaints of "chest bleeding". Admitted for missed HD. OBJECTIVE: Last Vital Signs Temp Pulse Resp BP Pulse Ox 98 F 65 18 150/76 99 04/19/17 04:49 04/19/17 04:49 04/19/17 04:49 04/19/17 04:49 04/19/17 04:49 General-NAD , appears com HEENT -PERRLA, no scleral icterus NEck - supple , no JVD, no masses CV - s1+s2+ RRR no murmurs Chest - Right sided tunneled HD catheter, lungs cta b/l, left chest hematoma- ( resolving from previous admission) Abdomen- soft, no masses, BS+ Ext- right 3rd hand digit s/p amputation, no infection on feet, LUE slightly more edematous than right. Laboratory Results - last 24 hr 04/19/17 04/19/17 01:45 01:45 WBC 4.7 RBC 3.16 L Hgb 9.2 L D Hct 28.6 L MCV 90.4 MCH 29.2 MCHC 32.3 RDW 17.3 H Plt Count 144 MPV 9.3 Neutrophils % Y Lymphocytes % Y Sodium 137 Potassium 5.0 D Chloride 100 Carbon Dioxide 27 Anion Gap 10 BUN 55 H D Creatinine 5.2 H D Creat Clearance w eGFR 11.12 Random Glucose 127 H D Calcium 8.0 L Total Bilirubin 0.6 AST 22 D ALT 19 Alkaline Phosphatase 172 H Total Protein 7.[address] chest shows diffuse subq edema upper ext duplex for dvt -neg ASSESSMENT AND PLAN: 66 year old male w/ multiple medical problems including anemia, HTN, HLD, CVA, DVT, CAD s/p CABG and stents, pacemaker, CHF, DM, ESRD (dialysis T,R,S), DVT on ELiquis enlarged BPH and anxiety admitted to hospital for pain around right HD catheter and missed HD. Last HD session was 04/14. Right tunneled HD catheter appears grossly normal without visible bleeding or discharge. Duplex of upper ext negative for DVT. Old resolving left chest hematoma. No suspicion infection or active bleeding. #ESRD on HD- not grossly fluid overloaded -renal consult to arrange for AM HD -restart regular HD meds #Bleeding from old L subclavicular catheter site resolved, no active bleeding -not acutely bleeding, -monitor H,H -vascular contacted by ER #Old right upper ext -resume eliquis -monitor H,H BP #DVT ppx -on Eliquis #diet -renal, diabetic diet restart home meds for chronic medical problems
[2017-04-19 06:40] VITALS: BMI 22.8
[2017-04-19 06:45] LABS: HYPOCHROMIA 1+; PLATELET ESTIMATE ADEQUATE (NORMAL); POIKILOCYTOSIS 1+
[2017-04-19 06:46] LABS: ANISOCYTOSIS 1+
[2017-04-19 06:50] LABS: TEAR DROP CELLS FEW
[2017-04-19 06:51] LABS: OVALOCYTES OCC
[2017-04-19] MEDS: INSULIN SLIDING SCALE (NOVOLOG) 1 VIAL SQ SCH ×4 (07:25→21:45)
[2017-04-19 08:51] LABS: INR 1.37 (0.82-1.09); PROTHROMBIN TIME (PATIENT) 15.2 SEC (9.98-11.88)
[2017-04-19 09:24] LABS: ANION GAP 11 (8-16); CALCIUM 8.5 mg/dL (8.5-10.1); CO2 24 mmol/L (21-32); GLUCOSE,RANDOM 99 mg/dL (74-106); MAGNESIUM 2.3 mg/dL (1.8-2.4)
[2017-04-19 09:27] LABS: CREATININE 5.5 mg/dL (0.7-1.3)
[2017-04-19] MEDS ORDERED: PT OWN MED DRAWER 7, Y5N ONE ×2 (09:39→21:30)
[2017-04-19] MEDS: ASPIRIN 81 MG CHEWABLE TABLETS PO SCH (09:41)
[2017-04-19] MEDS: GABAPENTIN 100 MG CAPSULE (FP) PO SCH (09:41)
[2017-04-19] MEDS: SEVELAMER CARBONATE 800 MG TAB (FP) PO SCH ×3 (09:41→17:13)
[2017-04-19] MEDS: PANTOPRAZOLE 40 MG TABLET (FP) PO SCH ×2 (09:41→21:45)
[2017-04-19] MEDS: TAMSULOSIN HCL 0.4 MG CAP.ER.24H (FP) PO SCH (09:41)
[2017-04-19] MEDS: CARVEDILOL 12.5 MG TABLET (FP) PO SCH ×2 (09:42→21:45)
[2017-04-19] MEDS: hydrALAZINE HCL 25 MG TABLET (FP) PO SCH ×2 (09:42→21:44)
[2017-04-19] MEDS: ISOSORBIDE MONONITRATE 30 MG TAB.SR.24H (FP) PO SCH (09:42)
--- NOTE | 2017-04-19 10:54 | PN ---
Physical Exam: SUBJECTIVE: Patient seen and examined. No bleeding noted. Patient now reports that bleeding was from the previous catheter site in his left chest and not from the current catheter site in his right chest. OBJECTIVE: Vital Signs Period Temp Pulse Resp BP Sys/Hinds Pulse Ox Last 24 Hr 97.5 F-97.6 F 69-69 18-18 172-175/86-89 96 GENERAL: The patient is awake, alert, and fully oriented, in no acute distress. NECK: Supple, full range of motion. CHEST: Hematoma of left chest at previous catheter insertion site. Right chest catheter in place with clean insertion site. LUNGS: Breath sounds equal, clear to auscultation bilaterally, no wheezes, no crackles, no accessory muscle use. HEART: Regular rate and rhythm, S1, S2 without murmur, rub or gallop. ABDOMEN: Soft, nontender, nondistended, normoactive bowel sounds, no guarding, no rebound. 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 Laboratory Results - last 24 hr 04/19/17 04/19/17 04/19/17 07:01 07:45 07:45 INR 1.37 H Sodium 137 Potassium 5.3 H Chloride 102 Carbon Dioxide 24 Anion Gap 11 BUN 56 H Creatinine 5.5 H POC Glucometer 111 Random Glucose 99 D Calcium 8.5 Phosphorus 7.0 H D Magnesium 2.3 Active Medications Generic Name Dose Route Start Last Admin Trade Name Freq PRN Reason Stop Dose Admin Apixaban 2.5 mg 04/19/17 10:00 Eliquis - PO BID NGOC Aspirin 81 mg 04/19/17 10:00 04/19/17 09:41 Asa - PO 81 mg DAILY NGOC Administration Atorvastatin Calcium 20 mg 04/19/17 22:00 Lipitor - PO HS NGOC Carvedilol 12.5 mg 04/19/17 10:00 04/19/17 09:42 Coreg - PO 12.5 mg BID NGOC Administration Cyclobenzaprine HCl 10 mg 04/19/17 04:56 Flexeril - PO Q8H PRN ARM PAIN Gabapentin 100 mg 04/19/17 10:00 04/19/17 09:41 Neurontin - PO 100 mg DAILY NGOC Administration Hydralazine HCl 50 mg 04/19/17 10:00 04/19/17 09:42 Apresoline - PO 50 mg BID NGOC Administration Insulin Aspart 1 vial 04/19/17 07:00 04/19/17 07:25 Novolog Vial Sliding Scale - SQ Not Given ACHS [facility] Protocol Isosorbide Mononitrate 30 mg 04/19/17 10:00 04/19/17 09:42 Imdur - PO 30 mg DAILY NGOC Administration Pantoprazole Sodium 40 mg 04/19/17 10:00 04/19/17 09:41 Protonix - PO 40 mg BID NGOC Administration Sevelamer Carbonate 800 mg 04/19/17 08:00 04/19/17 09:41 Renvela - PO 800 mg TIDCM NGOC Administration Tamsulosin HCl 0.4 mg 04/19/17 08:30 04/19/17 09:41 Flomax - PO 0.4 mg DAILY@0830 NGOC Administration ASSESSMENT/PLAN: This is a 66-year-old man with a history of ESRD on HD, anemia, HTN, hyperlipidemia, CVA, RUE DVT, CAD, CABG, cardiac stents, pacemaker, chronic systolic heart failure, type 2 DM, BPH, PAF, PAD, anxiety who presented to the ER with pain and bleeding at the site of a right chest HD catheter. 1. Bleeding from previous left chest HD catheter site - No signs of bleeding - Hematoma resolving 2. ESRD - Patient had HD in hospital on 04/14 and he is unsure if he went 04/16 - Renal consult for HD - Continue Renvela 3. HTN - Continue Coreg, Hydralazine 4. BPH -Continue Flomax 5. Type 2 DM - Continue Novolog sliding scale 6. 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 CAD, history of CABG, stents - Continue aspirin, Coreg, Imdur, Lipitor 8. Hyperlipidemia - Continue Lipitor 9. Paroxysmal atrial fibrillation - Contineu Eliquis 10. Peripheral arterial disease 11. History of CVA 12. Anemia secondary to ESRD 13. History of pacemaker Visit type - Emergency Visit Emergency Visit: Yes ED Registration Date: 04/19/17 Care time: The patient presented to the Emergency Department on the above date and was hospitalized for further evaluation of their emergent condition. - New Patient This patient is new to me today: Yes Date on this admission: 04/19/17 - Critical Care Critical Care patient: No - Discharge Referral Referred to [facility] No
[2017-04-19] MEDS: APIXABAN 2.5 MG TABLET PO SCH ×2 (11:02→21:44)
--- NOTE | 2017-04-19 11:50 | CON.NEP ---
Consult Consult Specialty:: Nephrology Reason for Consultation:: esrd - History of Present Illness Chief Complaint: chest pain History of Present Illness: 66 year old man with history of esrd, nonconpliance, htn, chronic pain syndrome. who presents with recurrence of pain. 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 Cardio/Vascular: Yes: AFIB (paroxysmal), CAD (CABG, PCI/KAT), CHF, Deep Vein Thrombosis, HTN, Hyperlipdemia Renal/: Yes: Renal Failure, Hemodialysis Psych: Yes: Anxiety Endocrine: Yes: Diabetes Mellitus - Past Surgical History Past Surgical History: Yes: AICD, Amputation (right 3rd finger), CABG (3v CABG and mitral ring 2009 (GUADALUPE->LAD, SVG->LPL, SVG->D1 jump D2.), Stent - Alcohol/Substance Use Hx Alcohol Use: No History of Substance Use: reports: Prescription - Smoking History Smoking history: Unknown if ever smoked Have you smoked in the past 12 months: No Aproximately how many cigarettes per day: 0 If you are a former smoker, when did you quit?: 2014 - Social History Usual Living Arrangement: With Spouse ADL: Independent History of Recent Travel: No Home Medications - Allergies Allergies/Adverse Reactions: Allergies Allergy/AdvReac Type Severity Reaction Status Date / Time No Known Drug Allergies Allergy Verified 04/18/17 22:44 - Home Medications Home Medications: Ambulatory Orders Apixaban [Eliquis -] 2.5 mg PO BID #60 tablet 12/07/16 Aspirin [ASA -] 81 mg PO DAILY #0 tab.chew 12/07/16 Carvedilol [Coreg -] 12.5 mg PO BID #60 tablet 12/07/16 Cyclobenzaprine HCl [Flexeril 10 mg] 10 mg PO Q8H PRN #12 tablet 02/12/17 Atorvastatin Ca [Lipitor] 20 mg PO HS #30 tablet 04/08/17 Gabapentin [Neurontin] 100 mg PO DAILY #30 capsule 04/08/17 Hydralazine HCl [Apresoline -] 50 mg PO BID #60 tablet 04/08/17 Isosorbide Mononitrate [Imdur -] 30 mg PO DAILY #30 tab.sr.24h 04/08/17 Pantoprazole Sodium [Protonix -] 40 mg PO BID #60 tablet.ec 04/08/17 Sevelamer Carbonate [Renvela -] 800 mg PO TIDCM #90 tab 04/08/17 Tamsulosin HCl [Flomax -] 0.4 mg PO DAILY@0830 #30 capsule 04/08/17 Family Disease History - Family Disease History Family Disease History: Diabetes: Brother, Heart Disease: Brother, Other: Father (Stroke) Review of Systems - Review of Systems Constitutional: reports: Lethargy, Malaise Eyes: reports: No Symptoms HENT: reports: No Symptoms Neck: reports: No Symptoms Cardiovascular: reports: Chest Pain Respiratory: reports: SOB Gastrointestinal: reports: No Symptoms Genitourinary: reports: No Symptoms Breasts: reports: No Symptoms Reported Musculoskeletal: reports: Back Pain Integumentary: reports: No Symptoms Neurological: reports: No Symptoms Endocrine: reports: No Symptoms Hematology/Lymphatic: reports: No Symptoms Psychiatric: reports: No Symptoms Nephrology Consult - Height Height: 5 ft 2 in - Weight Weight: 125 lb - BMI Body Mass Index (BMI): 22.8 - Lab Results CBC,BMP: CBC, BMP 04/19/17 07:45 Anion Gap: Anion Gap Anion Gap 11 (8-16) 04/19/17 07:45 - Imaging Cat Scan: Report Reviewed - Physical Examination Vital Signs: Vital Signs Temperature 97.5 F L 04/19/17 09:20 Pulse Rate 66 04/19/17 11:00 Respiratory Rate 18 04/19/17 11:00 Blood Pressure 117/54 04/19/17 11:00 O2 Sat by Pulse Oximetry (%) 96 04/19/17 06:22 Constitutional: Yes: Well Nourished, No Distress Eyes: Yes: Conjunctiva Clear HENT: Yes: Atraumatic, Normocephalic Neck: Yes: Supple, Trachea Midline Cardiovascular: Yes: Regular Rate and Rhythm Respiratory: Yes: Diminished Gastrointestinal: Yes: Normal Bowel Sounds Musculoskeletal: Yes: Back Pain, Joint Stiffness Extremities: Yes: Amputation Edema: LLE: 1+, RLE: 1+ Neurological: Yes: Alert, Oriented Assessment/Plan IMPRESSION esrd htn cad fluid overload PLAN orders for hd written, pt already being dialyzed continue renvela with meals will need vanco today MV
[2017-04-19] MEDS ORDERED: VANCOMYCIN 1,000 MG in VANCOMYCIN 1 GRAM (PRE-DOCKED) 250 ML IVPB ONE (12:15)
[2017-04-19] MEDS ORDERED: EPOETIN ALFA 2,000 UNITS/1 ML VIAL IVPUSH ONE (12:15)
[2017-04-19] MEDS ORDERED: HEPARIN NA (PORCINE) 5,000 UNITS/ML 1ML VIAL IVPUSH ONE (12:15)
[2017-04-19] MEDS: CYCLOBENZAPRINE HCL 10 MG TABLET (FP) PO PRN (17:13)
[2017-04-19] MEDS: ATORVASTATIN CA 20 MG TABLET (FP) PO SCH (21:44)
[2017-04-20] MEDS: CYCLOBENZAPRINE HCL 10 MG TABLET (FP) PO PRN ×2 (01:57→21:29)
--- NOTE | 2017-04-20 04:31 | HOSP ---
Physical Examination Vital Signs: Vital Signs Temperature 98.2 F 04/19/17 19:44 Pulse Rate 72 04/19/17 23:00 Respiratory Rate 16 04/19/17 23:00 Blood Pressure 146/74 04/19/17 23:00 O2 Sat by Pulse Oximetry (%) 96 04/19/17 20:00 Labs: CBC, BMP 04/19/17 07:45 Hospitalist Encounter Assessment: Patient is a 66 year old male with PMHx of HTN, HLD, CVA, DVT, CAD s/p CABG and stents, pacemaker, CHF, DM, ESRD (dialysis T,R,S), BPH, Anemia and anxiety who was BIBEMS due to pain and bleeding from right subclavian hemodialysis catheter that caused him to miss two dialysis sessions. Patient was admitted for volume overload and was given Hemodialysis. Notified by RN that patient's was complaining of left sided facial pain. Upon evaluation, patient was noticed to have left facial erythema, swelling, and tenderness. Patient denies any shortness of breath but reports having severe pain. PHYSICAL EXAM HEAD: Plethoric, Left facial swelling, erythema, and tenderness from below the ear down to the jaw and neck. LUNGS: Decreased breath sounds throughout lung bases bilaterally HEART: RRR, Normal S1 and S2. Left chest wall tenderness upon palpation with hematoma. EXTREMITIES: 1+ Pitting edema ASSESSMENT & PLAN: Left sided facial erythema,edema, tenderness R/O abscess -STAT soft tissue neck CT -ID consult placed -Will need to check vanco levels before dialysis to determine dosage. -Will have day medical team follow up Visit type - Emergency Visit Emergency Visit: Yes ED Registration Date: 04/19/17 Care time: The patient presented to the Emergency Department on the above date and was hospitalized for further evaluation of their emergent condition. - New Patient This patient is new to me today: Yes Date on this admission: 04/20/17 - Critical Care Critical Care patient: No
[2017-04-20] MEDS: INSULIN SLIDING SCALE (NOVOLOG) 1 VIAL SQ SCH ×4 (05:59→21:25)
[2017-04-20 08:24] LABS: MCH 29.6 pg (25.7-33.7); MCHC 32.9 g/dl (32.0-35.9); MEAN CELL VOLUME 90.1 fl (80-96); MEAN PLT VOLUME 8.9 fl (7.5-11.1); PLATELET COUNT 120 K/MM3 (134-434); RDW 17.1 % (11.9-15.9)
[2017-04-20] MEDS ORDERED: PT OWN MED DRAWER 7, Y5N ONE ×2 (09:03→20:39)
[2017-04-20] MEDS ORDERED: ACETAMINOPHEN 1000 MG/100 ML VIAL (NON FORMULARY) IVPB ONE (09:15)
[2017-04-20] MEDS ORDERED: PIPERACILLIN/TAZOB 2.25 GM 50 ML IVPB ONE (09:15)
--- NOTE | 2017-04-20 09:17 | CONSULT ---
Consult Consult Specialty:: Infectious disease Reason for Consultation:: Bilateral neck swelling and pain for two days in a diabetic on hemodialysis - History of Present Illness Chief Complaint: Patient developed bilateral swelling and pain of both sides of his jaw/neck two days prior to presentation History of Present Illness: The patient is a 66 year old M with CRF on hemodialysis, DM, CABG, with amputation of Rt middle finger, CABG, cardiac device, frequently seen at the hospital, who presented with a two day history of bilateral swelling of neck. There was associated redness of the neck/jaw area bilaterally on presentation, but no difficulty swallowing. There was no associated fever, but patient reported chills. No cough initially but patient reported some non-productive cough yesterday. The patient had associated shortnesss of breath. There was also bleeding from the left chest catheter that had been removed prior. There was generalized body pains, non-specific which has been on going. There was associated redness of the jaw swelling at presentation, which has resolved. Patient had a dose of zosyn yesterday, day 20 on home vancomycin from the previous admission 03/31/17 for a 6 week treatment of Staph epidermidis bacteriemia. 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 Cardio/Vascular: Yes: AFIB (paroxysmal), CAD (CABG, PCI/KAT), CHF, Deep Vein Thrombosis, HTN, Hyperlipdemia Renal/: Yes: Renal Failure, Hemodialysis Psych: Yes: Anxiety Endocrine: Yes: Diabetes Mellitus - Past Surgical History Past Surgical History: Yes: AICD, Amputation (right 3rd finger), CABG (3v CABG and mitral ring 2008 (GUADALUPE->LAD, SVG->LPL, SVG->D1 jump D2.), Stent - Alcohol/Substance Use Hx Alcohol Use: No History of Substance Use: reports: Prescription - Smoking History Smoking history: Unknown if ever smoked Have you smoked in the past 12 months: No Aproximately how many cigarettes per day: 0 If you are a former smoker, when did you quit?: 2013 - Social History Usual Living Arrangement: With Spouse ADL: Independent History of Recent Travel: No Home Medications - Allergies Allergies/Adverse Reactions: Allergies Allergy/AdvReac Type Severity Reaction Status Date / Time No Known Drug Allergies Allergy Verified 04/18/17 22:44 - Home Medications Home Medications: Ambulatory Orders Apixaban [Eliquis -] 2.5 mg PO BID #60 tablet 12/07/16 Aspirin [ASA -] 81 mg PO DAILY #0 tab.chew 12/07/16 Carvedilol [Coreg -] 12.5 mg PO BID #60 tablet 12/07/16 Cyclobenzaprine HCl [Flexeril 10 mg] 10 mg PO Q8H PRN #12 tablet 02/12/17 Atorvastatin Ca [Lipitor] 20 mg PO HS #30 tablet 04/08/17 Gabapentin [Neurontin] 100 mg PO DAILY #30 capsule 04/08/17 Hydralazine HCl [Apresoline -] 50 mg PO BID #60 tablet 04/08/17 Isosorbide Mononitrate [Imdur -] 30 mg PO DAILY #30 tab.sr.24h 04/08/17 Pantoprazole Sodium [Protonix -] 40 mg PO BID #60 tablet.ec 04/08/17 Sevelamer Carbonate [Renvela -] 800 mg PO TIDCM #90 tab 04/08/17 Tamsulosin HCl [Flomax -] 0.4 mg PO DAILY@0830 #30 capsule 04/08/17 Pantoprazole Sodium 40 mg PO DAILY 04/20/17 Family Disease History - Family Disease History Family Disease History: Diabetes: Brother, Heart Disease: Brother, Other: Father (Stroke) Review of Systems - Review of Systems Constitutional: denies: Diaphoresis, Fever, Loss of Appetite HENT: denies: Difficult Swallowing, Throat Pain Neck: reports: Other (Bilateral swollen jaw/neck). denies: Decreased ROM, Pain on Movement, Stiffness Cardiovascular: denies: Palpitations, Shortness of Breath Respiratory: denies: Hemoptysis, SOB Gastrointestinal: denies: Nausea Integumentary: reports: Bruising (At point of previous L chest catheter, Swollen LUE, amputated R middle finger) Physical Exam Vital Signs: Vital Signs Temperature 97.8 F 04/20/17 06:00 Pulse Rate 66 04/20/17 06:00 Respiratory Rate 16 04/20/17 06:00 Blood Pressure 143/62 04/20/17 06:00 O2 Sat by Pulse Oximetry (%) 96 04/20/17 04:00 HENT: No: Drooling, Hoarseness Neck: Yes: Supple, Tenderness (Fullness/Swelling over both jaws/neck, extending to back of the neck on the left. Mild tenderness bilaterally over both jaws, no erythema, not warm to touch) Cardiovascular: Yes: S1, S2. No: Murmur Respiratory: No: Accessory Muscle Use, Rales, SOB, Stridor, Tachypnea, Wheezes Gastrointestinal: Yes: Soft. No: Tenderness ...Rectal Exam: Yes: Deferred Renal/: No: Baptiste Present Extremities: Yes: Amputation (Amputated R middle finger, dry calloused feet bilaterally), Other (Swollen L upper arm, mildly tender) Edema: No Edema: LUE: 2+ (firm swollen L upper arm) Labs: CBC, BMP 04/20/17 08:10 04/19/17 07:45 Problem List - Problems (1) Mastoiditis Assessment/Plan: Likely left sided mastoiditis, based on imaging Code(s): H70.90 - UNSPECIFIED MASTOIDITIS, UNSPECIFIED EAR (2) Bacteremia Assessment/Plan: Day 20 of 6 week treatment for Staph epidermidis Code(s): R78.81 - BACTEREMIA (3) Swollen arm Assessment/Plan: Swollen L arm For doppler imaging of L arm to R/O DVT Code(s): M79.89 - OTHER SPECIFIED SOFT TISSUE DISORDERS Assessment/Plan L mastoiditis, had one dose of zosyn, day 20 on home vancomycin from admission on 03/31 start ceftriaxone, discontinue zosyn blood cultures tomorrow with dialysis vancomycin level doppler of L swollen arm Visit type - Emergency Visit Emergency Visit: No - New Patient This patient is new to me today: Yes Date on this admission: 04/20/17 - Critical Care Critical Care patient: No
[2017-04-20] MEDS: CARVEDILOL 12.5 MG TABLET (FP) PO SCH ×2 (09:26→21:25)
[2017-04-20] MEDS: SEVELAMER CARBONATE 800 MG TAB (FP) PO SCH ×3 (09:26→18:10)
[2017-04-20] MEDS: TAMSULOSIN HCL 0.4 MG CAP.ER.24H (FP) PO SCH (09:26)
[2017-04-20] MEDS: GABAPENTIN 100 MG CAPSULE (FP) PO SCH (09:26)
[2017-04-20] MEDS: APIXABAN 2.5 MG TABLET PO SCH ×2 (09:26→21:25)
[2017-04-20] MEDS: ISOSORBIDE MONONITRATE 30 MG TAB.SR.24H (FP) PO SCH (09:26)
[2017-04-20] MEDS: PANTOPRAZOLE 40 MG TABLET (FP) PO SCH ×2 (09:26→21:27)
[2017-04-20] MEDS: hydrALAZINE HCL 25 MG TABLET (FP) PO SCH ×2 (09:26→21:25)
[2017-04-20] MEDS: ASPIRIN 81 MG CHEWABLE TABLETS PO SCH (09:36)
--- NOTE | 2017-04-20 10:38 | EKG ---
Test Reason : Blood Pressure : / mmHG Vent. Rate : 061 BPM Atrial Rate : 061 BPM P-R Int : 000 ms QRS Dur : 164 ms QT Int : 492 ms P-R-T Axes : 000 041 032 degrees QTc Int : 495 ms Ventricular-paced rhythm WITH OCCASIONAL atrial-paced complexes Biventricular pacemaker detected ABNORMAL ECG WHEN COMPARED WITH ECG OF 14-APR-2017 02:37, NO SIGNIFICANT CHANGE WAS FOUND Confirmed by PETRA ALAS MD ([id number]) on 04/20/2017 10:38:13 AM Referred By: Confirmed By:PETRA ALAS MD
[2017-04-20] MEDS ORDERED: morphine CARPU-JECT 2 MG/1 ML DISP.SYRIN IVPUSH ONE (10:45)
--- NOTE | 2017-04-20 11:26 | PN ---
Physical Exam: SUBJECTIVE: Patient seen and examined Patient complaining of significant pain this morning of his left jaw. Wants pain medications. Overnight pt was complaining of left sided facial pain. Night team assessed. Pt had left facial erythema, edema, and tenderness. He denied SOB. CT soft tissue neck showed generalized edema, soft tissue edema, and moderate airspace narrowing with severe left mastoiditis. ID was consulted. OBJECTIVE: Vital Signs Period Temp Pulse Resp BP Sys/Hinds Pulse Ox Last 24 Hr 97.5 F-98.2 F 58-74 16-20 112-167/58-83 96-96 GENERAL: The patient is awake, alert, and fully oriented, in mild distress. HEAD: Left facial swelling, mild erythema, and left neck/jaw tenderness to palpation. EYES: Extraocular movements intact, sclera anicteric, conjunctiva clear. ENT: Oropharynx difficult to assess. No exudates observed, moist mucous membranes. NECK: Trachea midline, full range of motion, moderate left sided edema and tenderness LUNGS: Poor inspiratory effort, lungs clear to auscultation bilterally, HEART: Regular rate and rhythm, S1, S2 without murmur, rub or gallop. Chest with previous hematoma on left. No bleeding today from site of HDcatheter ABDOMEN: Soft, nontender, nondistended, normoactive bowel sounds, no guarding, no rebound, no hepatosplenomegaly, no masses. EXTREMITIES: 2+ pulses, warm, well-perfused, no edema, 3rd finger amputation on Right NEUROLOGICAL: Normal speech, gait not observed. PSYCH: Normal mood, normal affect. Laboratory Results - last 24 hr 04/19/17 04/19/17 04/19/17 17:03 20:11 21:43 WBC RBC Hgb Hct MCV MCH MCHC RDW Plt Count MPV POC Glucometer 332 98 70 04/20/17 04/20/17 05:58 08:10 WBC 5.0 RBC 3.08 L Hgb 9.1 L Hct 27.8 L MCV 90.1 MCH 29.6 MCHC 32.9 RDW 17.1 H Plt Count 120 L MPV 8.9 POC Glucometer 106 Active Medications Generic Name Dose Route Start Last Admin Trade Name Freq PRN Reason Stop Dose Admin Apixaban 2.5 mg 04/19/17 10:00 04/20/17 09:26 Eliquis - PO 2.5 mg BID [facility] Administration Aspirin 81 mg 04/19/17 10:00 04/20/17 09:36 Asa - PO 81 mg DAILY [facility] Administration Atorvastatin Calcium 20 mg 04/19/17 22:00 04/19/17 21:44 Lipitor - PO 20 mg HS [facility] Administration Carvedilol 12.5 mg 04/19/17 10:00 04/20/17 09:26 Coreg - PO 12.5 mg BID [facility] Administration Cyclobenzaprine HCl 10 mg 04/19/17 04:56 04/20/17 01:57 Flexeril - PO 10 mg Q8H PRN Administration ARM PAIN Gabapentin 100 mg 04/19/17 10:00 04/20/17 09:26 Neurontin - PO 100 mg DAILY [facility] Administration Hydralazine HCl 50 mg 04/19/17 10:00 04/20/17 09:26 Apresoline - PO 50 mg BID [facility] Administration Insulin Aspart 1 vial 04/19/17 07:00 04/20/17 05:59 Novolog Vial Sliding Scale - SQ Not Given ACHS [facility] Protocol Isosorbide Mononitrate 30 mg 04/19/17 10:00 04/20/17 09:26 Imdur - PO 30 mg DAILY [facility] Administration Pantoprazole Sodium 40 mg 04/19/17 10:00 04/20/17 09:26 Protonix - PO 40 mg BID [facility] Administration Sevelamer Carbonate 800 mg 04/19/17 08:00 04/20/17 09:26 Renvela - PO 800 mg TIDCM [facility] Administration Tamsulosin HCl 0.4 mg 04/19/17 08:30 04/20/17 09:26 Flomax - PO 0.4 mg DAILY@0830 [facility] Administration ASSESSMENT/PLAN: 66 y.o. M with multiple medical comorbidities presented to the ER with pain and bleeding at the site of a right chest HD catheter and found to have L facial parotitis, cellulitis, and possible mastoiditis 1. Left facial erythema, mastoiditis, parotitis - Started on zosyn 2.25g - F/u with ID consult - IV tylenol given with no relief - IV morphine 2g given - ENT consult 2. Bleeding from previous left chest HD catheter site - No current signs of bleeding - Hgb/Hct stable @ 10.6/32.3 3. ESRD on HD - HD yesterday - Continue Renvela 800 mg PO TID 4. HTN - Continue Coreg 12.5 mg PO BID, Hydralazine 50 mg PO BID 5. BPH -Continue Flomax 0.4 mg PO Daily 6. DM - Continue Novolog sliding scale 7. 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 CAD, history of CABG, stents - Continue aspirin 81 mg PO daily, Coreg 12.5 mg PO BID, Imdur 30 mg PO daily , Lipitor 20 mg PO hs 9. Hyperlipidemia - Continue Lipitor 20 mg PO hs 9. Paroxysmal atrial fibrillation - Continue eliquis 2.5 mg PO BID Visit type - Emergency Visit Emergency Visit: No - New Patient This patient is new to me today: Yes Date on this admission: 04/20/17 - Critical Care Critical Care patient: No
[2017-04-20] MEDS: CEFTRIAXONE 50 ML IVPB SCH (12:42)
--- NOTE | 2017-04-20 12:45 | PN ---
Progress Note (short form) - Note Progress Note: [facility] Pt seen and examined. Permacath working well. Had HD yest. Cleared for DC from vascular standpoint. Clay Moore DO
--- NOTE | 2017-04-20 13:27 | PN ---
Progress Note, Physician History of Present Illness: Pt seen and examined at bedside. He is awake and alert. He appears comfortable. He was dialyzed yesterday. - Current Medication List Current Medications: Active Medications Apixaban (Eliquis -) 2.5 mg PO BID [facility] Last Admin: 04/20/17 09:26 Dose: 2.5 mg Aspirin (Asa -) 81 mg PO DAILY [facility] Last Admin: 04/20/17 09:36 Dose: 81 mg Atorvastatin Calcium (Lipitor -) 20 mg PO HS [facility] Last Admin: 04/19/17 21:44 Dose: 20 mg Carvedilol (Coreg -) 12.5 mg PO BID [facility] Last Admin: 04/20/17 09:26 Dose: 12.5 mg Cyclobenzaprine HCl (Flexeril -) 10 mg PO Q8H PRN PRN Reason: ARM PAIN Last Admin: 04/20/17 01:57 Dose: 10 mg Gabapentin (Neurontin -) 100 mg PO DAILY [facility] Last Admin: 04/20/17 09:26 Dose: 100 mg Hydralazine HCl (Apresoline -) 50 mg PO BID [facility] Last Admin: 04/20/17 09:26 Dose: 50 mg Ceftriaxone Sodium (Rocephin 1gm Ivpb (Pre-Docked)) 50 mls @ 100 mls/hr IVPB DAILY [facility] Last Admin: 04/20/17 12:42 Dose: 100 mls/hr Insulin Aspart (Novolog Vial Sliding Scale -) 1 vial SQ ACHS [facility] PRN Reason: Protocol Last Admin: 04/20/17 11:44 Dose: 4 units Isosorbide Mononitrate (Imdur -) 30 mg PO DAILY [facility] Last Admin: 04/20/17 09:26 Dose: 30 mg Pantoprazole Sodium (Protonix -) 40 mg PO BID [facility] Last Admin: 04/20/17 09:26 Dose: 40 mg Sevelamer Carbonate (Renvela -) 800 mg PO TIDCM [facility] Last Admin: 04/20/17 12:07 Dose: 800 mg Tamsulosin HCl (Flomax -) 0.4 mg PO DAILY@0830 [facility] Last Admin: 04/20/17 09:26 Dose: 0.4 mg - Objective Vital Signs: Vital Signs Temperature 97.5 F L 04/20/17 09:54 Pulse Rate 70 04/20/17 09:54 Respiratory Rate 18 04/20/17 09:54 Blood Pressure 148/67 04/20/17 09:54 O2 Sat by Pulse Oximetry (%) 96 04/20/17 04:00 Constitutional: Yes: Calm Eyes: Yes: Conjunctiva Clear HENT: Yes: Atraumatic Cardiovascular: Yes: S1, S2 Respiratory: Yes: CTA Bilaterally Gastrointestinal: Yes: Soft Genitourinary: Yes: WNL Musculoskeletal: Yes: Muscle Weakness Edema: Yes Edema: LUE: 1+, RUE: 1+ Neurological: Yes: Oriented Psychiatric: Yes: Oriented Labs: CBC, BMP 04/20/17 08:10 04/19/17 07:45 INR, PTT INR 1.37 (0.82-1.09) H 04/19/17 07:45 Assessment/Plan Current Medications Generic Name Dose Route Start Last Admin Trade Name Freq PRN Reason Stop Dose Admin Apixaban 2.5 mg 04/19/17 10:00 04/20/17 09:26 Eliquis - PO 2.5 mg BID [facility] Administration Aspirin 81 mg 04/19/17 10:00 04/20/17 09:36 Asa - PO 81 mg DAILY [facility] Administration Atorvastatin Calcium 20 mg 04/19/17 22:00 04/19/17 21:44 Lipitor - PO 20 mg HS [facility] Administration Carvedilol 12.5 mg 04/19/17 10:00 04/20/17 09:26 Coreg - PO 12.5 mg BID [facility] Administration Cyclobenzaprine HCl 10 mg 04/19/17 04:56 04/20/17 01:57 Flexeril - PO 10 mg Q8H PRN Administration ARM PAIN Gabapentin 100 mg 04/19/17 10:00 04/20/17 09:26 Neurontin - PO 100 mg DAILY [facility] Administration Hydralazine HCl 50 mg 04/19/17 10:00 04/20/17 09:26 Apresoline - PO 50 mg BID [facility] Administration Ceftriaxone Sodium 50 mls @ 100 mls/hr 04/20/17 12:30 04/20/17 12:42 Rocephin 1gm Ivpb (Pre-Docked) IVPB 100 mls/hr DAILY [facility] Administration Insulin Aspart 1 vial 04/19/17 07:00 04/20/17 11:44 Novolog Vial Sliding Scale - SQ 4 units ACHS [facility] Administration Protocol Isosorbide Mononitrate 30 mg 07/09/17 10:00 04/20/17 09:26 Imdur - PO 30 mg DAILY [facility] Administration Pantoprazole Sodium 40 mg 04/19/17 10:00 04/20/17 09:26 Protonix - PO 40 mg BID [facility] Administration Sevelamer Carbonate 800 mg 04/19/17 08:00 04/20/17 12:07 Renvela - PO 800 mg TIDCM [facility] Administration Tamsulosin HCl 0.4 mg 04/19/17 08:30 04/20/17 09:26 Flomax - PO 0.4 mg DAILY@0830 [facility] Administration Impression 1. ESRD 2. CAD 3. HTN 4. narcotic dependence 5. non compliance 6. pleural effusions 7. anemia 8. chest pain 9. DVT 10. hx GI bleed 11. hx bacteremia 12. hyperkalemia Plan - pt was dialyzed yesterday - HD in am - cont current care - compliance remains a major problem with his management Dr Campos
--- NOTE | 2017-04-20 13:29 | PN ---
Teaching Attending Note Name of Resident: Ursula Lewis ATTENDING PHYSICIAN STATEMENT I saw and evaluated the patient. I reviewed the resident's note and discussed the case with the resident. I agree with the resident's findings and plan as documented. SUBJECTIVE: currently on vancomycin with HD for a transient staph epi bacteremia PC was removed 04/04 and replaced 04/08 n the right side-he was to complete 6 weeks of vancomycin with HD now admitted with anasarca noted yesterday to have left facial fullness and erythema imaging showed left parotid swelling and fluid in left mastoid- no bony erosions noted c/o generalized body pain generally not very adherence with medical care has had over 20 visits to our ER this year! OBJECTIVE: Vital Signs Period Temp Pulse Resp BP Sys/Hinds Pulse Ox Last 24 Hr 97.5 F-98.2 F 66-74 16-20 123-166/62-83 96-96 left parotid enlargement extending to behind his ear, no erythema or induration , no fluctuance able to open mouth easily,, no drainage from stindsons duct noted cor-rrr lungs decreased bs at bases ++left arm swelling abd soft, nt ext no lower extremity edema well healed right hand amputation CBC, BMP 04/20/17 08:10 04/19/17 07:45 ASSESSMENT AND PLAN: parotid swelling-doubt parotitis/?otomastoiditis- add ceftriaxone until seen by ENT staph jenae bacteremia- complete 6 weeks vancomycin esrd/hd cad /aicd DM duplex left arm Problem List - Problems (1) Parotid gland enlargement Code(s): K11.1 - HYPERTROPHY OF SALIVARY GLAND (2) Mastoiditis Code(s): H70.90 - UNSPECIFIED MASTOIDITIS, UNSPECIFIED EAR (3) Bacteremia Code(s): R78.81 - BACTEREMIA (4) ESRD (end stage renal disease) on dialysis Code(s): N18.6 - END STAGE RENAL DISEASE Z99.2 - DEPENDENCE ON RENAL DIALYSIS (5) CAD (coronary artery disease) Code(s): I25.10 - ATHSCL HEART DISEASE OF [place] CORONARY ARTERY W/O ANG PCTRS (6) Diabetes Code(s): E11.9 - TYPE 2 DIABETES MELLITUS WITHOUT COMPLICATIONS
--- NOTE | 2017-04-20 16:32 | PN ---
Teaching Attending Note Name of Resident: Juan Francisco Lopez ATTENDING PHYSICIAN STATEMENT I saw and evaluated the patient. I reviewed the resident's note and discussed the case with the resident. I agree with the resident's findings and plan as documented. SUBJECTIVE: Patient complained of left face swelling and pain this morning. OBJECTIVE: Vital Signs Period Temp Pulse Resp BP Sys/Hinds Pulse Ox Last 24 Hr 97.5 F-98.2 F 63-72 16-20 140-155/55-83 96-96 GENERAL: The patient is awake, alert, and fully oriented, in no acute distress. NECK: Left side swollen and tender. CHEST: Hematoma of left chest at previous catheter insertion site. Right chest catheter in place with clean insertion site. LUNGS: Breath sounds equal, clear to auscultation bilaterally, no wheezes, no crackles, no accessory muscle use. HEART: Regular rate and rhythm, S1, S2 without murmur, rub or gallop. ABDOMEN: Soft, nontender, nondistended, normoactive bowel sounds, no guarding, no rebound. 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 ASSESSMENT AND PLAN: This is a 66-year-old man with a history of ESRD on HD, anemia, HTN, hyperlipidemia, CVA, RUE DVT, CAD, CABG, cardiac stents, pacemaker, chronic systolic heart failure, type 2 DM, BPH, PAF, PAD, anxiety who presented to the ER with pain and bleeding at the site of a right chest HD catheter. 1. Left face/neck swelling - CT shows enlarged left parotid gland; thickened left platysma; induration of subcutaneous fat; edema medial to left platysma beneath tip of parotid gland ; left mastoid sinus opacification; opacified left middle ear and mastoid antrum ; small retropharyngeal fluid collection and edema; generalized subcutaneous edema - Possible left parotitis, possible left otomastoiditis - ID consult appreciated - Rocephin started - On Vancomycin with HD for Staph epi bacteremia - ENT consult 2. Bleeding from previous left chest HD catheter site - No signs of bleeding - Hemoglobin is stable - Hematoma resolving 3. ESRD - Continue HD Tue/Shanell/Sat - Continue Renvela 4. HTN - Continue Coreg, Hydralazine 5. BPH -Continue Flomax 6. Type 2 DM - Continue Novolog sliding scale 7. 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 CAD, history of CABG, stents - Continue aspirin, Coreg, Imdur, Lipitor 9. Hyperlipidemia - Continue Lipitor 10. Paroxysmal atrial fibrillation - Contineu Eliquis 11. Peripheral arterial disease 12. History of CVA 13. Anemia secondary to ESRD 14. History of pacemaker
[2017-04-20] MEDS: ATORVASTATIN CA 20 MG TABLET (FP) PO SCH (21:25)
[2017-04-21] MEDS: INSULIN SLIDING SCALE (NOVOLOG) 1 VIAL SQ SCH ×5 (06:42→21:58)
[2017-04-21] MEDS: TAMSULOSIN HCL 0.4 MG CAP.ER.24H (FP) PO SCH (08:13)
[2017-04-21] MEDS: SEVELAMER CARBONATE 800 MG TAB (FP) PO SCH ×4 (08:13→16:47)
[2017-04-21] MEDS ORDERED: HEPARIN NA (PORCINE) 5,000 UNITS/ML 1ML VIAL IVPUSH ONE (10:30)
[2017-04-21] MEDS ORDERED: EPOETIN ALFA 2,000 UNITS/1 ML VIAL IVPUSH ONE (11:00)
[2017-04-21 11:32] LABS: MCH 29.4 pg (25.7-33.7); MCHC 32.3 g/dl (32.0-35.9); MEAN CELL VOLUME 91.1 fl (80-96); MEAN PLT VOLUME 9.2 fl (7.5-11.1); PLATELET COUNT 122 K/MM3 (134-434); RDW 17.8 % (11.9-15.9); WHITE BLOOD COUNT 4.8 K/mm3 (4.0-10.0)
[2017-04-21 11:53] LABS: ANION GAP 10 (8-16); CALCIUM 8.5 mg/dL (8.5-10.1); CO2 28 mmol/L (21-32); CREATININE 4.8 mg/dL (0.7-1.3); GLUCOSE,RANDOM 148 mg/dL (74-106)
[2017-04-21] MEDS ORDERED: VANCOMYCIN 500 MG/100 ML PRE-DOCKED IVPB ONE (12:55)
[2017-04-21] MEDS: CEFTRIAXONE 50 ML IVPB SCH (13:10)
--- NOTE | 2017-04-21 13:23 | PN ---
Progress Note, Physician History of Present Illness: Pt seen and examined at bedside. He is awake and appears comfortable. He is currently getting HD. - Current Medication List Current Medications: Active Medications Apixaban (Eliquis -) 2.5 mg PO BID [facility] Last Admin: 04/20/17 21:25 Dose: 2.5 mg Aspirin (Asa -) 81 mg PO DAILY [facility] Last Admin: 04/20/17 09:36 Dose: 81 mg Atorvastatin Calcium (Lipitor -) 20 mg PO HS [facility] Last Admin: 04/20/17 21:25 Dose: 20 mg Carvedilol (Coreg -) 12.5 mg PO BID [facility] Last Admin: 04/20/17 21:25 Dose: 12.5 mg Cyclobenzaprine HCl (Flexeril -) 10 mg PO Q8H PRN PRN Reason: ARM PAIN Last Admin: 04/20/17 21:29 Dose: 10 mg Gabapentin (Neurontin -) 100 mg PO DAILY [facility] Last Admin: 04/20/17 09:26 Dose: 100 mg Hydralazine HCl (Apresoline -) 50 mg PO BID [facility] Last Admin: 04/20/17 21:25 Dose: 50 mg Ceftriaxone Sodium (Rocephin 1gm Ivpb (Pre-Docked)) 50 mls @ 100 mls/hr IVPB DAILY [facility] Last Admin: 04/20/17 12:42 Dose: 100 mls/hr Insulin Aspart (Novolog Vial Sliding Scale -) 1 vial SQ ACHS [facility] PRN Reason: Protocol Last Admin: 04/21/17 06:42 Dose: Not Given Isosorbide Mononitrate (Imdur -) 30 mg PO DAILY [facility] Last Admin: 04/20/17 09:26 Dose: 30 mg Pantoprazole Sodium (Protonix -) 40 mg PO BID [facility] Last Admin: 04/20/17 21:27 Dose: 40 mg Sevelamer Carbonate (Renvela -) 800 mg PO TIDCM [facility] Last Admin: 04/21/17 08:13 Dose: 800 mg Tamsulosin HCl (Flomax -) 0.4 mg PO DAILY@0830 [facility] Last Admin: 04/21/17 08:13 Dose: 0.4 mg - Objective Vital Signs: Vital Signs Temperature 97.8 F 04/21/17 10:17 Pulse Rate 77 04/21/17 11:40 Respiratory Rate 18 04/21/17 11:40 Blood Pressure 156/57 04/21/17 11:40 O2 Sat by Pulse Oximetry (%) 96 04/21/17 03:09 Constitutional: Yes: Calm Eyes: Yes: Conjunctiva Clear HENT: Yes: Atraumatic Neck: Yes: Supple Cardiovascular: Yes: S1, S2 Respiratory: Yes: CTA Bilaterally Gastrointestinal: Yes: Soft Genitourinary: Yes: WNL Musculoskeletal: Yes: Muscle Weakness Edema: No Neurological: Yes: Oriented Psychiatric: Yes: Oriented Labs: CBC, BMP 04/21/17 10:45 04/21/17 10:45 INR, PTT INR 1.37 (0.82-1.09) H 04/19/17 07:45 Problem List - Problems (1) Anemia Code(s): D64.9 - ANEMIA, UNSPECIFIED Qualifiers: (2) Diabetes Code(s): E11.9 - TYPE 2 DIABETES MELLITUS WITHOUT COMPLICATIONS (3) ESRD (end stage renal disease) on dialysis Code(s): N18.6 - END STAGE RENAL DISEASE Z99.2 - DEPENDENCE ON RENAL DIALYSIS (4) Hypertension Code(s): I10 - ESSENTIAL (PRIMARY) HYPERTENSION Qualifiers: Hypertension type: essential hypertension Qualified Code(s): I10 - Essential (primary) hypertension Assessment/Plan Current Medications Generic Name Dose Route Start Last Admin Trade Name Freq PRN Reason Stop Dose Admin Apixaban 2.5 mg 04/19/17 10:00 04/20/17 21:25 Eliquis - PO 2.5 mg BID [facility] Administration Aspirin 81 mg 04/19/17 10:00 04/20/17 09:36 Asa - PO 81 mg DAILY [facility] Administration Atorvastatin Calcium 20 mg 04/19/17 22:00 04/20/17 21:25 Lipitor - PO 20 mg HS [facility] Administration Carvedilol 12.5 mg 04/19/17 10:00 04/20/17 21:25 Coreg - PO 12.5 mg BID [facility] Administration Cyclobenzaprine HCl 10 mg 04/19/17 04:56 04/20/17 21:29 Flexeril - PO 10 mg Q8H PRN Administration ARM PAIN Gabapentin 100 mg 04/19/17 10:00 04/20/17 09:26 Neurontin - PO 100 mg DAILY [facility] Administration Hydralazine HCl 50 mg 04/19/17 10:00 04/20/17 21:25 Apresoline - PO 50 mg BID [facility] Administration Ceftriaxone Sodium 50 mls @ 100 mls/hr 04/20/17 12:30 04/20/17 12:42 Rocephin 1gm Ivpb (Pre-Docked) IVPB 100 mls/hr DAILY [facility] Administration Insulin Aspart 1 vial 04/19/17 07:00 04/21/17 06:42 Novolog Vial Sliding Scale - SQ Not Given ACHS [facility] Protocol Isosorbide Mononitrate 30 mg 04/19/17 10:00 04/20/17 09:26 Imdur - PO 30 mg DAILY [facility] Administration Pantoprazole Sodium 40 mg 04/19/17 10:00 04/20/17 21:27 Protonix - PO 40 mg BID [facility] Administration Sevelamer Carbonate 800 mg 04/19/17 08:00 04/21/17 08:13 Renvela - PO 800 mg TIDCM [facility] Administration Tamsulosin HCl 0.4 mg 04/19/17 08:30 04/21/17 08:13 Flomax - PO 0.4 mg DAILY@0830 [facility] Administration Impression 1. ESRD 2. CAD 3. HTN 4. narcotic dependence 5. non compliance 6. pleural effusions 7. anemia 8. chest pain 9. DVT 10. hx GI bleed 11. hx bacteremia 12. hyperkalemia Plan - HD today - vanco on HD - pt has HD set up as outpt - cont current care - compliance remains a major problem with his management Dr Campos
[2017-04-21] MEDS: ISOSORBIDE MONONITRATE 30 MG TAB.SR.24H (FP) PO SCH (14:49)
[2017-04-21] MEDS: ASPIRIN 81 MG CHEWABLE TABLETS PO SCH (14:49)
[2017-04-21] MEDS: CYCLOBENZAPRINE HCL 10 MG TABLET (FP) PO PRN ×2 (14:49→22:01)
[2017-04-21] MEDS: GABAPENTIN 100 MG CAPSULE (FP) PO SCH (14:49)
[2017-04-21] MEDS ORDERED: PT OWN MED DRAWER 7, Y5N ONE (14:53)
[2017-04-21] MEDS: CARVEDILOL 12.5 MG TABLET (FP) PO SCH ×2 (14:54→21:59)
[2017-04-21] MEDS: APIXABAN 2.5 MG TABLET PO SCH ×2 (14:54→23:19)
[2017-04-21] MEDS: hydrALAZINE HCL 25 MG TABLET (FP) PO SCH ×2 (14:54→21:59)
[2017-04-21] MEDS: PANTOPRAZOLE 40 MG TABLET (FP) PO SCH ×2 (14:58→21:59)
--- NOTE | 2017-04-21 15:46 | PN ---
Progress Note, Physician History of Present Illness: Day 21 on home vancomycin from the previous admission 03/31/17 for a 6 week treatment of Staph epidermidis bacteriemia. Also had ceftriaxone at dialysis. Last hemodialysis was today Jaw swelling markedly reduced, now more in the neck region doppler of L arm showed no DVT, swelling also reduced in both arms Wants to be discharged to go to another hospital for pain meds - Current Medication List Current Medications: Active Medications Apixaban (Eliquis -) 2.5 mg PO BID [facility] Last Admin: 04/21/17 14:54 Dose: 2.5 mg Aspirin (Asa -) 81 mg PO DAILY [facility] Last Admin: 04/21/17 14:49 Dose: 81 mg Atorvastatin Calcium (Lipitor -) 20 mg PO HS [facility] Last Admin: 04/20/17 21:25 Dose: 20 mg Carvedilol (Coreg -) 12.5 mg PO BID [facility] Last Admin: 04/21/17 14:54 Dose: 12.5 mg Cyclobenzaprine HCl (Flexeril -) 10 mg PO Q8H PRN PRN Reason: ARM PAIN Last Admin: 04/21/17 14:49 Dose: 10 mg Gabapentin (Neurontin -) 100 mg PO DAILY [facility] Last Admin: 04/21/17 14:49 Dose: 100 mg Hydralazine HCl (Apresoline -) 50 mg PO BID [facility] Last Admin: 04/21/17 14:54 Dose: 50 mg Ceftriaxone Sodium (Rocephin 1gm Ivpb (Pre-Docked)) 50 mls @ 100 mls/hr IVPB DAILY [facility] Last Admin: 04/21/17 13:10 Dose: 100 mls/hr Insulin Aspart (Novolog Vial Sliding Scale -) 1 vial SQ ACHS [facility] PRN Reason: Protocol Last Admin: 04/21/17 14:48 Dose: 6 units Isosorbide Mononitrate (Imdur -) 30 mg PO DAILY [facility] Last Admin: 04/21/17 14:49 Dose: 30 mg Pantoprazole Sodium (Protonix -) 40 mg PO BID [facility] Last Admin: 04/21/17 14:58 Dose: Not Given Sevelamer Carbonate (Renvela -) 800 mg PO TIDCM [facility] Last Admin: 04/21/17 14:54 Dose: 800 mg Tamsulosin HCl (Flomax -) 0.4 mg PO DAILY@0830 [facility] Last Admin: 04/21/17 08:13 Dose: 0.4 mg - Objective Vital Signs: Vital Signs Temperature 98.0 F 04/21/17 14:40 Pulse Rate 79 04/21/17 14:40 Respiratory Rate 18 04/21/17 14:40 Blood Pressure 170/78 04/21/17 14:40 O2 Sat by Pulse Oximetry (%) 98 04/21/17 10:17 Eyes: Yes: Conjunctiva Clear. No: Sclera Icterus HENT: Yes: Other (Bilateral neck swelling with lax skin and muscle, worse on the left side. No more jaw swelling) Neck: Yes: Supple. No: Tenderness Cardiovascular: Yes: S1, S2. No: Murmur Respiratory: No: On Nasal O2, Rales, Rhonchi Gastrointestinal: Yes: Soft. No: Tenderness ...Rectal Exam: Yes: Deferred Musculoskeletal: No: Joint Swelling Extremities: Yes: Amputation (R middle finger) Edema: No (no pedal edema) Integumentary: Yes: Other (swollen upper arms bilaterally, L more than r) Neurological: Yes: Alert, Oriented. No: Seizure, Tremors Labs: CBC, BMP 04/21/17 10:45 INR, PTT INR 1.37 (0.82-1.09) H 04/19/17 07:45 Problem List - Problems (1) Mastoiditis Assessment/Plan: Probable left sided mastoiditis, for ENT follow up Code(s): H70.90 - UNSPECIFIED MASTOIDITIS, UNSPECIFIED EAR (2) Bacteremia Assessment/Plan: Day 21 of 6 week treatment for Staph epidermidis Code(s): R78.81 - BACTEREMIA (3) Swollen arm Assessment/Plan: Swollen L arm Doppler imaging of L arm showed no DVT Code(s): M79.89 - OTHER SPECIFIED SOFT TISSUE DISORDERS Impression/Plan Impression/Plan: Continue Vancomycin Change to oral ceftin adjusted for dialysis Visit type - Emergency Visit Emergency Visit: No - New Patient This patient is new to me today: No - Critical Care Critical Care patient: No - Discharge Referral Referred to [facility] No
--- NOTE | 2017-04-21 15:51 | PN ---
Teaching Attending Note Name of Resident: Ursula Lewis ATTENDING PHYSICIAN STATEMENT I saw and evaluated the patient. I reviewed the resident's note and discussed the case with the resident. I agree with the resident's findings and plan as documented. SUBJECTIVE: continues to complain of generalized pain s/p HD today OBJECTIVE: Vital Signs Period Temp Pulse Resp BP Sys/Hinds Pulse Ox Last 24 Hr 97.6 F-98.0 F 60-81 18-20 101-174/51-91 96-98 neck swelling and parotid swelling are markedly improved cor- rrr lungs decreased bs at bases abd soft,nt ext no edema CBC, BMP 04/21/17 10:45 ASSESSMENT AND PLAN: possible otitis, fluid in mastoid awaiting ENT f/u consider change to po ceftin 250 daily if okay with ENT would continue vancomycin with HD as previously outlined please call back if needed d/w housestaff Problem List - Problems (1) Parotid gland enlargement Code(s): K11.1 - HYPERTROPHY OF SALIVARY GLAND (2) Mastoiditis Code(s): H70.90 - UNSPECIFIED MASTOIDITIS, UNSPECIFIED EAR (3) Bacteremia Code(s): R78.81 - BACTEREMIA (4) ESRD (end stage renal disease) on dialysis Code(s): N18.6 - END STAGE RENAL DISEASE Z99.2 - DEPENDENCE ON RENAL DIALYSIS (5) CAD (coronary artery disease) Code(s): I25.10 - ATHSCL HEART DISEASE OF [place] CORONARY ARTERY W/O ANG PCTRS (6) Diabetes Code(s): E11.9 - TYPE 2 DIABETES MELLITUS WITHOUT COMPLICATIONS
--- NOTE | 2017-04-21 16:11 | PN ---
Physical Exam: SUBJECTIVE: Patient seen and examined No acute events overnight. Still complaining of left sided neck/jaw pain. No difficulty breathing, shortness of breath, or chest pain OBJECTIVE: Vital Signs Period Temp Pulse Resp BP Sys/Hinds Pulse Ox Last 24 Hr 97.6 F-98.0 F 60-81 18-20 101-174/51-91 96-98 GENERAL: The patient is awake, alert, and fully oriented, in no acute distress. HEAD: Left facial swelling (improved), no tenderness to palpation EYES: Extraocular movements intact, sclera anicteric, conjunctiva clear. ENT: Oropharynx difficult to assess. No exudates observed, moist mucous membranes. NECK: Trachea midline, full range of motion, moderate left sided edema, no tenderness to palpation LUNGS: Poor inspiratory effort, lungs clear to auscultation bilaterally, HEART: Regular rate and rhythm, S1, S2 without murmur, rub or gallop. Chest with previous hematoma on left. No bleeding today from site of HD catheter ABDOMEN: Soft, nontender, nondistended, normoactive bowel sounds, no guarding, no rebound, no hepatosplenomegaly, no masses. EXTREMITIES: 2+ pulses, warm, well-perfused, no edema, 3rd finger amputation on Right NEUROLOGICAL: Normal speech, gait not observed. PSYCH: Normal mood, normal affect. Laboratory Results - last 24 hr 04/20/17 04/20/17 04/21/17 16:32 21:17 05:27 WBC RBC Hgb Hct MCV MCH MCHC RDW Plt Count MPV Sodium Potassium Chloride Carbon Dioxide Anion Gap BUN Creatinine POC Glucometer 135 184 144 Random Glucose Calcium Random Vancomycin 04/21/17 04/21/17 04/21/17 10:45 10:45 10:45 WBC 4.8 RBC 3.11 L Hgb 9.1 L Hct 28.3 L MCV 91.1 MCH 29.4 MCHC 32.3 RDW 17.8 H Plt Count 122 L MPV 9.2 Sodium 140 Potassium 4.9 Chloride 102 Carbon Dioxide 28 Anion Gap 10 BUN 44 H D Creatinine 4.8 H POC Glucometer Random Glucose 148 H D Calcium 8.5 Random Vancomycin 14.800 04/21/17 14:47 WBC RBC Hgb Hct MCV MCH MCHC RDW Plt Count MPV Sodium Potassium Chloride Carbon Dioxide Anion Gap BUN Creatinine POC Glucometer 281 Random Glucose Calcium Random Vancomycin Active Medications Generic Name Dose Route Start Last Admin Trade Name Freq PRN Reason Stop Dose Admin Apixaban 2.5 mg 04/19/17 10:00 04/21/17 14:54 Eliquis - PO 2.5 mg BID NGOC Administration Aspirin 81 mg 04/19/17 10:00 04/21/17 14:49 Asa - PO 81 mg DAILY [facility] Administration Atorvastatin Calcium 20 mg 04/19/17 22:00 04/20/17 21:25 Lipitor - PO 20 mg HS NGOC Administration Carvedilol 12.5 mg 04/19/17 10:00 04/21/17 14:54 Coreg - PO 12.5 mg BID NGOC Administration Cyclobenzaprine HCl 10 mg 04/19/17 04:56 04/21/17 14:49 Flexeril - PO 10 mg Q8H PRN Administration ARM PAIN Gabapentin 100 mg 04/19/17 10:00 04/21/17 14:49 Neurontin - PO 100 mg DAILY [facility] Administration Hydralazine HCl 50 mg 04/19/17 10:00 04/21/17 14:54 Apresoline - PO 50 mg BID [facility]OC Administration Ceftriaxone Sodium 50 mls @ 100 mls/hr 04/20/17 12:30 04/21/17 13:10 Rocephin 1gm Ivpb (Pre-Docked) IVPB 100 mls/hr DAILY [facility] Administration Insulin Aspart 1 vial 04/19/17 07:00 04/21/17 14:48 Novolog Vial Sliding Scale - SQ 6 units ACHS [facility]OC Administration Protocol Isosorbide Mononitrate 30 mg 04/19/17 10:00 04/21/17 14:49 Imdur - PO 30 mg DAILY [facility] Administration Pantoprazole Sodium 40 mg 04/19/17 10:00 04/21/17 14:58 Protonix - PO Not Given BID NGOC Sevelamer Carbonate 800 mg 04/19/17 08:00 04/21/17 14:54 Renvela - PO 800 mg TIDCM NGOC Administration Tamsulosin HCl 0.4 mg 04/19/17 08:30 04/21/17 08:13 Flomax - PO 0.4 mg DAILY@0830 [facility] Administration ASSESSMENT/PLAN: 66 y.o. M with multiple medical comorbidities presented to the ER with pain and bleeding at the site of a right chest HD catheter and found to have L facial parotitis, cellulitis, and possible mastoiditis 1. Left facial erythema, mastoiditis, parotitis - On Rocephin 1g IV daily per ID - F/u with ENT 2. Bleeding from previous left chest HD catheter site - No current signs of bleeding - Hgb/Hct stable @ 9.1/28.3 -Continue to monitor 3. ESRD on HD - HD today - Continue Renvela 800 mg PO TID 4. HTN - Continue Coreg 12.5 mg PO BID, Hydralazine 50 mg PO BID 5. BPH -Continue Flomax 0.4 mg PO Daily 6. DM - Continue Novolog sliding scale 7. Bacteremia -Currently on day 21 of a 6 week treatment for staph epidermidis -Vancomycin 500mg with HD 8. 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 CAD, history of CABG, stents - Continue aspirin 81 mg PO daily, Coreg 12.5 mg PO BID, Imdur 30 mg PO daily , Lipitor 20 mg PO hs 10. Hyperlipidemia - Continue Lipitor 20 mg PO hs 11. Paroxysmal atrial fibrillation - Continue eliquis 2.5 mg PO BID 12. Right arm swelling -u/s showed no evidence of DVT -Superficial thrombophlebitis of cephalic vein Visit type - Emergency Visit Emergency Visit: No - New Patient This patient is new to me today: No - Critical Care Critical Care patient: No
[2017-04-21 16:27] LABS: CREATININE 1.7 mg/dL (0.7-1.3)
--- NOTE | 2017-04-21 16:39 | PN ---
Teaching Attending Note Name of Resident: Juan Francisco Lopez ATTENDING PHYSICIAN STATEMENT I saw and evaluated the patient. I reviewed the resident's note and discussed the case with the resident. I agree with the resident's findings and plan as documented. SUBJECTIVE:c/o pain 07/21 generalized OBJECTIVE: Vital Signs Temperature 98.0 F 04/21/17 14:40 Pulse Rate 79 04/21/17 14:40 Respiratory Rate 18 04/21/17 14:40 Blood Pressure 170/78 04/21/17 14:40 O2 Sat by Pulse Oximetry (%) 98 04/21/17 10:17 GENERAL: The patient is awake, alert, and fully oriented, in no acute distress. HEAD: Left facial swelling (improved), no tenderness to palpation EYES: Extraocular movements intact, sclera anicteric, conjunctiva clear. ENT: Oropharynx difficult to assess. No exudates observed, moist mucous membranes. NECK: Trachea midline, full range of motion, moderate left sided edema, no tenderness to palpation LUNGS: Poor inspiratory effort, lungs clear to auscultation bilaterally, HEART: Regular rate and rhythm, S1, S2 without murmur, rub or gallop. Chest with previous hematoma on left. No bleeding today from site of HD catheter ABDOMEN: Soft, nontender, nondistended, normoactive bowel sounds, no guarding, no rebound, no hepatosplenomegaly, no masses. EXTREMITIES: 2+ pulses, warm, well-perfused, no edema, 3rd finger amputation on Right NEUROLOGICAL: Normal speech, gait not observed. PSYCH: Normal mood, normal affect. CBC, BMP 04/21/17 10:45 ASSESSMENT AND PLAN: 1. Left mastoiditis, parotitis - On Rocephin 1g IV daily per ID - ENT consult 2. ESRD on HD 3. HTN- stable - Continue Coreg 12.5 mg PO BID, Hydralazine 50 mg PO BID 4.History of bacteremia- staph epi -Currently on day 21 of a 6 week treatment for staph epidermidis ( vanco in HD) 8. 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
--- NOTE | 2017-04-21 18:07 | CON.ENT ---
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: Yes: CVA Cardio/Vascular: Yes: AFIB (paroxysmal), CAD (CABG, PCI/KAT), CHF, Deep Vein Thrombosis, HTN, Hyperlipdemia Renal/: Yes: Renal Failure, Hemodialysis Psych: Yes: Anxiety Endocrine: Yes: Diabetes Mellitus - Past Surgical History Past Surgical History: Yes: AICD, Amputation (right 3rd finger), CABG (3v CABG and mitral ring 2009 (GUADALUPE->LAD, SVG->LPL, SVG->D1 jump D2.), Stent - Alcohol/Substance Use Hx Alcohol Use: No History of Substance Use: reports: Prescription - Smoking History Smoking history: Unknown if ever smoked Have you smoked in the past 12 months: No Aproximately how many cigarettes per day: 0 If you are a former smoker, when did you quit?: 2014 - Social History Usual Living Arrangement: With Spouse ADL: Independent History of Recent Travel: No Home Medications - Allergies Allergies/Adverse Reactions: Allergies Allergy/AdvReac Type Severity Reaction Status Date / Time No Known Drug Allergies Allergy Verified 04/18/17 22:44 - Home Medications Home Medications: Ambulatory Orders Apixaban [Eliquis -] 2.5 mg PO BID #60 tablet 12/07/16 Aspirin [ASA -] 81 mg PO DAILY #0 tab.chew 12/07/16 Carvedilol [Coreg -] 12.5 mg PO BID #60 tablet 12/07/16 Cyclobenzaprine HCl [Flexeril 10 mg] 10 mg PO Q8H PRN #12 tablet 02/12/17 Atorvastatin Ca [Lipitor] 20 mg PO HS #30 tablet 04/08/17 Gabapentin [Neurontin] 100 mg PO DAILY #30 capsule 04/08/17 Hydralazine HCl [Apresoline -] 50 mg PO BID #60 tablet 04/08/17 Isosorbide Mononitrate [Imdur -] 30 mg PO DAILY #30 tab.sr.24h 04/08/17 Pantoprazole Sodium [Protonix -] 40 mg PO BID #60 tablet.ec 04/08/17 Sevelamer Carbonate [Renvela -] 800 mg PO TIDCM #90 tab 04/08/17 Tamsulosin HCl [Flomax -] 0.4 mg PO DAILY@0830 #30 capsule 04/08/17 Pantoprazole Sodium 40 mg PO DAILY 04/20/17 Family Disease History - Family Disease History Family Disease History: Diabetes: Brother, Heart Disease: Brother, Other: Father (Stroke) Physical Exam-ENT Vital Signs: Vital Signs Temperature 98.0 F 04/21/17 14:40 Pulse Rate 79 04/21/17 14:40 Respiratory Rate 18 04/21/17 14:40 Blood Pressure 170/78 04/21/17 14:40 O2 Sat by Pulse Oximetry (%) 98 04/21/17 10:17 Constitutional: Yes: No Distress, Calm Head: Yes: WNL Face: Yes: Other (some swelling left) Eyes: Yes: WNL Nose: Yes: WNL Nasal Passage: Yes: WNL Oral/Pharynx: Yes: Other (dry) Outer Ear: Yes: WNL Neck: Yes: WNL Respiratory: Yes: WNL Imaging - Results Cat Scan: Report Reviewed, Image Reviewed Problem List - Problems (1) Mastoiditis Assessment/Plan: radiographic fluid no discrete symptoms, no mastoid tenderness and no bony erosion on CT scan Recommend observation, continue antibiotics as for parotid infection, outpatient followup for exam and audiogram Code(s): H70.90 - UNSPECIFIED MASTOIDITIS, UNSPECIFIED EAR Qualifiers: Laterality: left Qualified Code(s): H70.92 - Unspecified mastoiditis , left ear (2) Parotid gland enlargement Assessment/Plan: left parotid enlargement and infection Recommend: continue antibiotics local heat Code(s): K11.1 - HYPERTROPHY OF SALIVARY GLAND
[2017-04-21] MEDS: ATORVASTATIN CA 20 MG TABLET (FP) PO SCH (21:59)
[2017-04-22] MEDS: CYCLOBENZAPRINE HCL 10 MG TABLET (FP) PO PRN ×2 (05:48→13:31)
[2017-04-22] MEDS: INSULIN SLIDING SCALE (NOVOLOG) 1 VIAL SQ SCH ×3 (06:15→16:40)
[2017-04-22 07:32] LABS: MCH 29.4 pg (25.7-33.7); MCHC 32.1 g/dl (32.0-35.9); MEAN CELL VOLUME 91.3 fl (80-96); MEAN PLT VOLUME 9.2 fl (7.5-11.1); PLATELET COUNT 122 K/MM3 (134-434); RDW 17.9 % (11.9-15.9); WHITE BLOOD COUNT 5.2 K/mm3 (4.0-10.0)
[2017-04-22 08:18] LABS: ANION GAP 11 (8-16); CALCIUM 8.2 mg/dL (8.5-10.1); CO2 30 mmol/L (21-32); CREATININE 3.1 mg/dL (0.7-1.3); GLUCOSE,RANDOM 93 mg/dL (74-106)
--- NOTE | 2017-04-22 08:43 | PN ---
Teaching Attending Note Name of Resident: Juan Francisco Lopez ATTENDING PHYSICIAN STATEMENT I saw and evaluated the patient. I reviewed the resident's note and discussed the case with the resident. I agree with the resident's findings and plan as documented. SUBJECTIVE: no new complaints OBJECTIVE: Vital Signs Temperature 97.6 F 04/22/17 02:09 Pulse Rate 70 04/22/17 02:09 Respiratory Rate 20 04/22/17 02:09 Blood Pressure 120/64 04/22/17 02:09 O2 Sat by Pulse Oximetry (%) 98 04/21/17 21:00 CBC, BMP 04/22/17 06:20 04/22/17 06:20 GENERAL: The patient is awake, alert, and fully oriented, in no acute distress. HEAD: Left facial swelling (improved), no tenderness to palpation EYES: Extraocular movements intact, sclera anicteric, conjunctiva clear. ENT: Oropharynx difficult to assess. No exudates observed, moist mucous membranes. NECK: Trachea midline, full range of motion, moderate left sided edema, no tenderness to palpation. 1 cm fluctuant lesion on left anterior chest wall at the site of prior port LUNGS: Poor inspiratory effort, lungs clear to auscultation bilaterally, HEART: Regular rate and rhythm, S1, S2 without murmur, rub or gallop. Chest with previous hematoma on left. No bleeding today from site of HD catheter ABDOMEN: Soft, nontender, nondistended, normoactive bowel sounds, no guarding, no rebound, no hepatosplenomegaly, no masses. EXTREMITIES: 2+ pulses, warm, well-perfused, no edema, 3rd finger amputation on Right NEUROLOGICAL: Normal speech, gait not observed. PSYCH: Normal mood, normal affect. ASSESSMENT AND PLAN: 1. Left mastoiditis, parotitis- on PO ceftin, chest wall collection is seroma vs abscess - ID evaluation , 2. ESRD on HD 3. HTN- stable 4.History of bacteremia- staph epi -Currently on day 22 of a 6 week treatment for staph epidermidis ( vanco in HD) 5. 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
[2017-04-22] MEDS: SEVELAMER CARBONATE 800 MG TAB (FP) PO SCH ×3 (09:05→17:13)
[2017-04-22] MEDS: GABAPENTIN 100 MG CAPSULE (FP) PO SCH (09:06)
[2017-04-22] MEDS: CARVEDILOL 12.5 MG TABLET (FP) PO SCH (09:06)
[2017-04-22] MEDS: hydrALAZINE HCL 25 MG TABLET (FP) PO SCH (09:06)
[2017-04-22] MEDS: PANTOPRAZOLE 40 MG TABLET (FP) PO SCH (09:06)
[2017-04-22] MEDS: TAMSULOSIN HCL 0.4 MG CAP.ER.24H (FP) PO SCH (09:06)
[2017-04-22] MEDS: ASPIRIN 81 MG CHEWABLE TABLETS PO SCH (09:06)
[2017-04-22] MEDS: APIXABAN 2.5 MG TABLET PO SCH (09:06)
[2017-04-22] MEDS: ISOSORBIDE MONONITRATE 30 MG TAB.SR.24H (FP) PO SCH (09:06)
[2017-04-22] MEDS: CEFTRIAXONE 50 ML IVPB SCH (09:11)
--- NOTE | 2017-04-22 10:57 | PN ---
Progress Note, Physician History of Present Illness: Called back to see the patient for L chest swelling afebrile, normal WBC - Current Medication List Current Medications: Active Medications Apixaban (Eliquis -) 2.5 mg PO BID [facility] Last Admin: 04/22/17 09:06 Dose: 2.5 mg Aspirin (Asa -) 81 mg PO DAILY [facility] Last Admin: 04/22/17 09:06 Dose: 81 mg Atorvastatin Calcium (Lipitor -) 20 mg PO HS [facility] Last Admin: 04/21/17 21:59 Dose: 20 mg Carvedilol (Coreg -) 12.5 mg PO BID [facility] Last Admin: 04/22/17 09:06 Dose: 12.5 mg Cyclobenzaprine HCl (Flexeril -) 10 mg PO Q8H PRN PRN Reason: ARM PAIN Last Admin: 04/22/17 05:48 Dose: 10 mg Gabapentin (Neurontin -) 100 mg PO DAILY [facility] Last Admin: 04/22/17 09:06 Dose: 100 mg Hydralazine HCl (Apresoline -) 50 mg PO BID [facility] Last Admin: 04/22/17 09:06 Dose: 50 mg Ceftriaxone Sodium (Rocephin 1gm Ivpb (Pre-Docked)) 50 mls @ 100 mls/hr IVPB DAILY [facility] Last Admin: 04/22/17 09:11 Dose: Not Given Insulin Aspart (Novolog Vial Sliding Scale -) 1 vial SQ ACHS [facility] PRN Reason: Protocol Last Admin: 04/22/17 06:15 Dose: Not Given Isosorbide Mononitrate (Imdur -) 30 mg PO DAILY [facility] Last Admin: 04/22/17 09:06 Dose: 30 mg Pantoprazole Sodium (Protonix -) 40 mg PO BID [facility] Last Admin: 04/22/17 09:06 Dose: 40 mg Sevelamer Carbonate (Renvela -) 800 mg PO TIDCM [facility] Last Admin: 04/22/17 09:05 Dose: 800 mg Tamsulosin HCl (Flomax -) 0.4 mg PO DAILY@0830 [facility] Last Admin: 04/22/17 09:06 Dose: 0.4 mg - Objective Vital Signs: Vital Signs Temperature 97.6 F 04/22/17 10:00 Pulse Rate 81 04/22/17 10:00 Respiratory Rate 20 04/22/17 10:00 Blood Pressure 149/97 04/22/17 10:00 O2 Sat by Pulse Oximetry (%) 98 04/21/17 21:00 Constitutional: Yes: Anxious (Asking for pain meds), Poor Hygeine Eyes: Yes: EOM Intact HENT: Yes: Atraumatic, Other (dry mucus membranes) Cardiovascular: Yes: S1, S2 Respiratory: No: On Nasal O2, On Venti-Mask Gastrointestinal: No: Ascites, Distention ...Rectal Exam: Yes: Deferred Genitourinary: No: Baptiste Present Musculoskeletal: Yes: Other (L chest swelling about 6cm x 6cm, hyperemic, soft, 4cm gash below swelling, releasing dark colored blood, no pus) Edema: No Neurological: Yes: Alert Labs: CBC, BMP 04/22/17 06:20 04/22/17 06:20 INR, PTT INR 1.37 (0.82-1.09) H 04/19/17 07:45 Problem List - Problems (1) Swelling in chest Assessment/Plan: 6x 6 cm swelling on L chest, site of previous venous access, soft, dark in color 4cm gash below, oozing dark colored blood, no pus For surgery to review Code(s): R22.2 - LOCALIZED SWELLING, MASS AND LUMP, TRUNK (2) Bacteremia Assessment/Plan: still on 6 week treatment for Staph epidermidis to get with dialysis Code(s): R78.81 - BACTEREMIA (3) Mastoiditis Assessment/Plan: awaiting ENT follow up Code(s): H70.90 - UNSPECIFIED MASTOIDITIS, UNSPECIFIED EAR Qualifiers: Laterality: left Qualified Code(s): H70.92 - Unspecified mastoiditis , left ear (4) Swollen arm Assessment/Plan: Swollen L arm Doppler imaging of L arm showed no DVT Code(s): M79.89 - OTHER SPECIFIED SOFT TISSUE DISORDERS Impression/Plan Impression/Plan: L chest swelling likely hematoma oozing dark red blood for surgical review. Visit type - Emergency Visit Emergency Visit: No - New Patient This patient is new to me today: No - Critical Care Critical Care patient: No - Discharge Referral Referred to [facility] Med [facility].C.: No
[2017-04-22] MEDS ORDERED: CEFUROXIME AXETIL 250 MG TABLET PO SCH (11:05)
--- NOTE | 2017-04-22 12:10 | PN ---
Progress Note (short form) - Note Progress Note: asked to f/u by primary service no fevers, normal WBC he has an area of swelling at the site of prior permacath- there is an area of discoloration about 3 by 3 cm, an firm mass about 1 by 1 cm and dark blood drainage from the prior exit site of to permacath no fluctuation or erythema, no purulence I suspect this is a resolving hematoma and should be f/u by vascular otherwise plans as before to complete vancomycin with HD for prior bacteremia to f/u with ent and po ceftin for possible OM parotid enlargement has markedly improved thanks Problem List - Problems (1) Parotid gland enlargement Code(s): K11.1 - HYPERTROPHY OF SALIVARY GLAND (2) Mastoiditis Code(s): H70.90 - UNSPECIFIED MASTOIDITIS, UNSPECIFIED EAR Qualifiers: Laterality: left Qualified Code(s): H70.92 - Unspecified mastoiditis , left ear (3) Bacteremia Code(s): R78.81 - BACTEREMIA (4) ESRD (end stage renal disease) on dialysis Code(s): N18.6 - END STAGE RENAL DISEASE Z99.2 - DEPENDENCE ON RENAL DIALYSIS (5) CAD (coronary artery disease) Code(s): I25.10 - ATHSCL HEART DISEASE OF [place] CORONARY ARTERY W/O ANG PCTRS (6) Diabetes Code(s): E11.9 - TYPE 2 DIABETES MELLITUS WITHOUT COMPLICATIONS
[2017-04-22 13:02] LABS: PLATELET ESTIMATE SLT DECREASED (NORMAL)
--- NOTE | 2017-04-22 13:19 | PN ---
Progress Note, Physician History of Present Illness: Pt seen and examined at bedside. He is awake and alert. - Current Medication List Current Medications: Active Medications Apixaban (Eliquis -) 2.5 mg PO BID [facility] Last Admin: 04/22/17 09:06 Dose: 2.5 mg Aspirin (Asa -) 81 mg PO DAILY [facility] Last Admin: 04/22/17 09:06 Dose: 81 mg Atorvastatin Calcium (Lipitor -) 20 mg PO HS [facility] Last Admin: 04/21/17 21:59 Dose: 20 mg Carvedilol (Coreg -) 12.5 mg PO BID [facility] Last Admin: 04/22/17 09:06 Dose: 12.5 mg Cefuroxime Axetil (Ceftin -) 250 mg PO DAILY [facility] Last Admin: 04/22/17 11:50 Dose: 250 mg Cyclobenzaprine HCl (Flexeril -) 10 mg PO Q8H PRN PRN Reason: ARM PAIN Last Admin: 04/22/17 05:48 Dose: 10 mg Gabapentin (Neurontin -) 100 mg PO DAILY [facility] Last Admin: 04/22/17 09:06 Dose: 100 mg Hydralazine HCl (Apresoline -) 50 mg PO BID [facility] Last Admin: 04/22/17 09:06 Dose: 50 mg Insulin Aspart (Novolog Vial Sliding Scale -) 1 vial SQ ACHS [facility] PRN Reason: Protocol Last Admin: 04/22/17 11:51 Dose: 8 units Isosorbide Mononitrate (Imdur -) 30 mg PO DAILY [facility] Last Admin: 04/22/17 09:06 Dose: 30 mg Pantoprazole Sodium (Protonix -) 40 mg PO BID [facility] Last Admin: 04/22/17 09:06 Dose: 40 mg Sevelamer Carbonate (Renvela -) 800 mg PO TIDCM [facility] Last Admin: 04/22/17 11:50 Dose: 800 mg Tamsulosin HCl (Flomax -) 0.4 mg PO DAILY@0830 [facility] Last Admin: 04/22/17 09:06 Dose: 0.4 mg - Objective Vital Signs: Vital Signs Temperature 97.6 F 04/22/17 10:00 Pulse Rate 81 04/22/17 10:00 Respiratory Rate 20 04/22/17 10:00 Blood Pressure 149/97 04/22/17 10:00 O2 Sat by Pulse Oximetry (%) 98 04/22/17 09:00 Constitutional: Yes: Calm Eyes: Yes: Conjunctiva Clear HENT: Yes: Atraumatic Cardiovascular: Yes: S1, S2 Respiratory: Yes: CTA Bilaterally Gastrointestinal: Yes: Normal Bowel Sounds, Soft Genitourinary: Yes: WNL Edema: No Neurological: Yes: Oriented Psychiatric: Yes: Oriented Labs: CBC, BMP 04/22/17 06:20 04/22/17 06:20 INR, PTT INR 1.37 (0.82-1.09) H 04/19/17 07:45 Problem List - Problems (1) Anemia Code(s): D64.9 - ANEMIA, UNSPECIFIED Qualifiers: (2) Diabetes Code(s): E11.9 - TYPE 2 DIABETES MELLITUS WITHOUT COMPLICATIONS (3) ESRD (end stage renal disease) on dialysis Code(s): N18.6 - END STAGE RENAL DISEASE Z99.2 - DEPENDENCE ON RENAL DIALYSIS (4) Hypertension Code(s): I10 - ESSENTIAL (PRIMARY) HYPERTENSION Qualifiers: Hypertension type: essential hypertension Qualified Code(s): I10 - Essential (primary) hypertension Assessment/Plan Current Medications Generic Name Dose Route Start Last Admin Trade Name Freq PRN Reason Stop Dose Admin Apixaban 2.5 mg 04/19/17 10:00 04/22/17 09:06 Eliquis - PO 2.5 mg BID [facility] Administration Aspirin 81 mg 04/19/17 10:00 04/22/17 09:06 Asa - PO 81 mg DAILY [facility] Administration Atorvastatin Calcium 20 mg 04/19/17 22:00 04/21/17 21:59 Lipitor - PO 20 mg HS [facility] Administration Carvedilol 12.5 mg 04/19/17 10:00 04/22/17 09:06 Coreg - PO 12.5 mg BID [facility] Administration Cefuroxime Axetil 250 mg 04/22/17 11:05 04/22/17 11:50 Ceftin - PO 250 mg DAILY [facility] Administration Cyclobenzaprine HCl 10 mg 04/19/17 04:56 04/22/17 05:48 Flexeril - PO 10 mg Q8H PRN Administration ARM PAIN Gabapentin 100 mg 04/19/17 10:00 04/22/17 09:06 Neurontin - PO 100 mg DAILY [facility] Administration Hydralazine HCl 50 mg 04/19/17 10:00 04/22/17 09:06 Apresoline - PO 50 mg BID [facility] Administration Insulin Aspart 1 vial 04/19/17 07:00 04/22/17 11:51 Novolog Vial Sliding Scale - SQ 8 units ACHS [facility] Administration Protocol Isosorbide Mononitrate 30 mg 04/19/17 10:00 04/22/17 09:06 Imdur - PO 30 mg DAILY [facility] Administration Pantoprazole Sodium 40 mg 04/19/17 10:00 04/22/17 09:06 Protonix - PO 40 mg BID [facility] Administration Sevelamer Carbonate 800 mg 04/19/17 08:00 04/22/17 11:50 Renvela - PO 800 mg TIDCM [facility] Administration Tamsulosin HCl 0.4 mg 04/19/17 08:30 04/22/17 09:06 Flomax - PO 0.4 mg DAILY@0830 [facility] Administration Impression 1. ESRD 2. CAD 3. HTN 4. narcotic dependence 5. non compliance 6. pleural effusions 7. anemia 8. chest pain 9. DVT 10. hx GI bleed 11. hx bacteremia 12. hyperkalemia Plan - will arrange for HD in am - cont current care - cont with vanco - pt has HD set up as outpt - compliance remains a major problem with his management Dr Campos
[2017-04-22 14:26] VITALS: BP 152/79; PULSE 79; TEMP 98
--- NOTE | 2017-04-22 16:44 | DS ---
Physical Exam: SUBJECTIVE: Patient seen and examined No acute events overnight. OBJECTIVE: Vital Signs Period Temp Pulse Resp BP Sys/Hinds Pulse Ox Last 24 Hr 97.6 F-98.4 F 70-86 18-20 120-152/64-97 98-98 PHYSICAL EXAM GENERAL: The patient is awake, alert, and fully oriented, in no acute distress. HEAD: Left facial swelling (improved), no tenderness to palpation EYES: Extraocular movements intact, sclera anicteric, conjunctiva clear. ENT: Oropharynx difficult to assess. No exudates observed, moist mucous membranes. NECK: Trachea midline, moderate left sided edema, no tenderness to palpation LUNGS: Poor inspiratory effort, lungs clear to auscultation bilaterally, HEART: Regular rate and rhythm, S1, S2 without murmur, rub or gallop. Chest with previous hematoma on left with minimal fluctuance. No bleeding today from site of HD catheter ABDOMEN: Soft, nontender, nondistended, normoactive bowel sounds, no guarding, no rebound, no hepatosplenomegaly, no masses. EXTREMITIES: 1+ radial pulses, warm, well-perfused, no edema, 3rd finger amputation on Right NEUROLOGICAL: Normal speech, gait not observed. PSYCH: Normal mood, normal affect. LABS Laboratory Results - last 24 hr Abnormal Lab Results 04/22/17 04/22/17 06:20 06:20 RBC 3.16 L Hgb 9.3 L Hct 28.9 L RDW 17.9 H Plt Count 122 L BUN 23 H D Creatinine 3.1 H D Calcium 8.2 L Vital Signs - 24 hr 04/21/17 04/21/17 04/22/17 19:52 21:00 02:09 Temperature 98.4 F 97.6 F Pulse Rate 86 70 Respiratory 20 20 20 Rate Blood Pressure 142/68 120/64 O2 Sat by Pulse 98 Oximetry (%) 04/22/17 04/22/17 04/22/17 09:00 10:00 14:25 Temperature 97.6 F 98.0 F Pulse Rate 81 79 Respiratory 20 18 Rate Blood Pressure 149/97 152/79 O2 Sat by Pulse 98 Oximetry (%) Imaging- L U/S duplex- No evidence of deep venous thrombosis. Ct Chest- Markedly limited study with left pleural effusion, suspected left basilar atelectasis and diffuse edematous changes throughout the subcutaneous tissues of the thorax. Please see above discussion. CT soft tissue neck- Enlarged left parotid gland. Thickened left platysma with duration of the subcutaneous fat, edema medial to the left platysma beneath the tip of the parotid gland clinically correlate with left parotitis, left-sided cellulitis. The majority of the left mastoid sinuses are opacified. Opacified left middle ear, mastoid antrum. No evidence of bony destructive changes. Intact tegmen tympani. Clinically correlate for left otomastoiditis. Small retropharyngeal fluid collection, edema. R Us Duplex- In comparison to a prior study of 01/31/2017 interval development of superficial thrombophlebitis is noted, specifically the cephalic vein. HOSPITAL COURSE: Date of Admission:04/19/17 Date of Discharge: 04/22/17 This is a 66 year old male with PMH of anemia, HTN, HLD, CVA, DVT, CAD s/p CABG and stents, pacemaker, CHF, DM, ESRD (dialysis T,R,S), enlarged prostate and anxiety, brought by EMS due to pain and bleeding at the entry site of the L subclavian HD catheter, which caused him to miss HD x 4 d (missed 2 sessions). He was admitted for ESRD on HD and bleeding at the old site. While in the hospital, patient was found to have swelling of the left neck. CT soft tissue was done. Results are above. Patient was found to have parotitis, mastoiditis, and retropharyngeal edema. He had no respiratory distress or difficulty swallowing. ID was consulted and he was started on IV ceftriaxone. Patient was then switched to PO ceftin. He was evaluated by ENT. ENT recommended observation and f/u outpatient for audiogram. Patient was d/c home and will complete a 14 day course of PO ceftin (until 05/04) . From a previous admission, he will be completing a course of vancomycin with HD for staph epidermidis Minutes to complete discharge: 30 Discharge Summary Reason For Visit: FLUID OVERLOAD,ESRD Current Active Problems Mastoiditis (Acute) Parotid gland enlargement (Acute) SVC syndrome (Acute) Swollen arm (Acute) BPH (benign prostatic hypertrophy) (Chronic) CAD (coronary artery disease) (Chronic) Chronic pain disorder (Chronic) DVT (deep venous thrombosis) (Chronic) Drug-seeking behavior (Chronic) ESRD (end stage renal disease) on dialysis (Chronic) Fluid overload (Chronic) Hematoma (Chronic) Hyperlipidemia (Chronic) Hypertension (Chronic) Noncompliance of patient with renal dialysis (Chronic) PAF (paroxysmal atrial fibrillation) (Chronic) Type 2 diabetes mellitus (Chronic) Condition: Stable - Instructions Diet, Activity, Other Instructions: You were in the hospital due to bleeding at the spot of your old catheter. You also had an infection on the left side of the neck/face. Please follow up with your primary care doctor, Dr. Hernández, in 1 week Please follow up with your informatica mdm developer, Dr. Campos, in 1 week Please take Ceftin 250 mg by mouth daily until (05/04/2017). Continue receiving antibiotics (Vancomycin) with hemodialysis. If you have any chest pain, shortness of breath, or any new symptoms please come back to the hospital immediately. Referrals: Roxann Campos MD [Staff Physician] - Disposition: HOME - Home Medications Comprehensive Discharge Medication List: Ambulatory Orders Apixaban [Eliquis -] 2.5 mg PO BID #60 tablet 12/07/16 Aspirin [ASA -] 81 mg PO DAILY #0 tab.chew 12/07/16 Carvedilol [Coreg -] 12.5 mg PO BID #60 tablet 12/07/16 Cyclobenzaprine HCl [Flexeril 10 mg] 10 mg PO Q8H PRN #12 tablet 02/12/17 Atorvastatin Ca [Lipitor] 20 mg PO HS #30 tablet 04/08/17 Gabapentin [Neurontin] 100 mg PO DAILY #30 capsule 04/08/17 Hydralazine HCl [Apresoline -] 50 mg PO BID #60 tablet 04/08/17 Isosorbide Mononitrate [Imdur -] 30 mg PO DAILY #30 tab.sr.24h 04/08/17 Sevelamer Carbonate [Renvela -] 800 mg PO TIDCM #90 tab 04/08/17 Tamsulosin HCl [Flomax -] 0.4 mg PO DAILY@0830 #30 capsule 04/08/17 Pantoprazole Sodium 40 mg PO DAILY 04/20/17 Cefuroxime Axetil [Ceftin -] 250 mg PO DAILY #12 tablet 04/22/17 This patient is new to me today: No Emergency Visit: No Critical Care patient: No - Discharge Referral Referred to [facility] No
[2017-04-23] MEDS ORDERED: EPOETIN ALFA 2,000 UNITS/1 ML VIAL IVPUSH ONE (13:19)
[2017-04-23] MEDS ORDERED: HEPARIN NA (PORCINE) 5,000 UNITS/ML 1ML VIAL IVPUSH ONE (13:19)
== END 2017-04-22 18:11 | disposition home or self-care (01) | DRG 640 ==
LOC: JER 22:17 → UNDOADMOB 04-19 04:20 → INTOOBSV 04-19 04:20 → JERBED 04-19 04:20 → OBSVTOIN 04-19 04:54 → J6S 04-19 05:22
PROVIDERS: ADMIT Internal Medicine; ATTEND Internal Medicine
PROC: 5A1D60Z (ICD-10-PCS; principal; 2017-04-21)
DX: E87.70 Fluid overload, unspecified (principal); N18.6 End stage renal disease; L76.02 Intraoperative hemorrhage and hematoma of skin and subcutaneous tissue complicating other procedure; I13.2 Hypertensive heart and chronic kidney disease with heart failure and with stage 5 chronic kidney disease, or end stage renal disease; I50.22 Chronic systolic (congestive) heart failure; H70.92 Unspecified mastoiditis, left ear; Y83.9 Surgical procedure, unspecified as the cause of abnormal reaction of the patient, or of later complication, without mention of misadventure at the time of the procedure; N40.0 Benign prostatic hyperplasia without lower urinary tract symptoms; I25.10 Atherosclerotic heart disease of native coronary artery without angina pectoris; Z98.61 Coronary angioplasty status; Z95.1 Presence of aortocoronary bypass graft; E11.22 Type 2 diabetes mellitus with diabetic chronic kidney disease; Z99.2 Dependence on renal dialysis; E78.5 Hyperlipidemia, unspecified; I48.0 Paroxysmal atrial fibrillation; I73.9 Peripheral vascular disease, unspecified; Z86.73 Personal history of transient ischemic attack (TIA), and cerebral infarction without residual deficits; D63.1 Anemia in chronic kidney disease; Z95.0 Presence of cardiac pacemaker; Z91.15 Patient's noncompliance with renal dialysis
CPT/HCPCS: 36415; 70490-TC; 71250-TC; 80048; 80053; 82565; 83735; 84100; 84520; 85025; 85027; 85610; 87040; 93005; 93010; 93971; 99283-25; G0378; G0480; J0885; J1644

== ENCOUNTER 2017-04-26 07:14 | Emergency (ER) | payer OTHER ==
[2017-04-26 07:34] VITALS: BP 203/85; PULSE 77; TEMP 97.7; BMI 24.7
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
[2017-04-26 08:42] LABS: BASOPHIL 0.3 % (0-2.0); EOSINOPHIL 7.8 % (0-4.5); MCH 29.7 pg (25.7-33.7); MEAN CELL VOLUME 92.8 fl (80-96); MEAN PLT VOLUME 9.8 fl (7.5-11.1); NEUTROPHILS 66.2 % (42.8-82.8); PLATELET COUNT 171 K/MM3 (134-434); RDW 18.4 % (11.9-15.9); WHITE BLOOD COUNT 6.7 K/mm3 (4.0-10.0)
[2017-04-26 09:04] LABS: ALBUMIN 3.3 g/dl (3.4-5.0); ANION GAP 10 (8-16); BILIRUBIN,TOTAL 0.4 mg/dL (0.2-1.0); CALCIUM 8.7 mg/dL (8.5-10.1); CO2 27 mmol/L (21-32); CREATININE 3.6 mg/dL (0.7-1.3); GLUCOSE,RANDOM 177 mg/dL (74-106); SGPT/ALT 19 U/L (12-78)
[2017-04-26 09:05] LABS: INR 1.13 (0.82-1.09); PROTHROMBIN TIME (PATIENT) 12.5 SEC (9.98-11.88)
[2017-04-26 09:07] LABS: ALK PHOS 242 U/L (45-117); TOT PROT 7.9 g/dl (6.4-8.2); TROPONIN I 0.07 ng/ml (0.00-0.05)
[2017-04-26 09:09] LABS: SGOT/AST 38 U/L (15-37)
--- NOTE | 2017-04-26 13:30 | EKG ---
Test Reason : Blood Pressure : / mmHG Vent. Rate : 079 BPM Atrial Rate : 312 BPM P-R Int : 000 ms QRS Dur : 172 ms QT Int : 436 ms P-R-T Axes : 000 039 014 degrees QTc Int : 499 ms Ventricular-paced rhythm Biventricular pacemaker detected ABNORMAL ECG WHEN COMPARED WITH ECG OF 19-APR-2017 01:43, VENT. RATE HAS INCREASED BY 18 BPM Confirmed by ТАТЬЯНА DAVIS MD ([id number]) on 04/26/2017 1:29:41 PM Referred By: Confirmed By:ТАТЬЯНА DAVIS MD
== END 2017-04-26 10:29 | disposition home or self-care (01) ==
LOC: JER 07:14
DX: I25.118 Atherosclerotic heart disease of native coronary artery with other forms of angina pectoris (principal); I25.2 Old myocardial infarction; Z95.1 Presence of aortocoronary bypass graft; I25.119 Atherosclerotic heart disease of native coronary artery with unspecified angina pectoris; I13.2 Hypertensive heart and chronic kidney disease with heart failure and with stage 5 chronic kidney disease, or end stage renal disease; N18.6 End stage renal disease; I50.9 Heart failure, unspecified; Z99.2 Dependence on renal dialysis; Z95.5 Presence of coronary angioplasty implant and graft; Z86.73 Personal history of transient ischemic attack (TIA), and cerebral infarction without residual deficits; Z86.718 Personal history of other venous thrombosis and embolism; Z79.01 Long term (current) use of anticoagulants; Z95.0 Presence of cardiac pacemaker; N40.0 Benign prostatic hyperplasia without lower urinary tract symptoms
CPT/HCPCS: 36415; 71010-TC; 80053; 82550; 84484; 85025; 85610; 86850; 86900; 86901; 93005; 93010; 99284-25

== ENCOUNTER 2017-05-19 22:15 | Emergency (ER) | payer OTHER ==
[2017-05-19 22:27] VITALS: TEMP 98; BMI 21.0
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
[2017-05-19] MEDS ORDERED: morphine CARPU-JECT 2 MG/1 ML DISP.SYRIN IM ONE (23:14)
[2017-05-19 23:22] VITALS: BP 126/60; PULSE 60
== END 2017-05-19 23:30 | disposition home or self-care (01) ==
LOC: JER 22:15
PROC: 3E023NZ Introduction of Analgesics, Hypnotics, Sedatives into Muscle, Percutaneous Approach (ICD-10-PCS; principal; 2017-05-19)
DX: M54.5 Low back pain (principal); I50.9 Heart failure, unspecified; I25.10 Atherosclerotic heart disease of native coronary artery without angina pectoris; E78.5 Hyperlipidemia, unspecified; I12.0 Hypertensive chronic kidney disease with stage 5 chronic kidney disease or end stage renal disease; E11.22 Type 2 diabetes mellitus with diabetic chronic kidney disease; N18.6 End stage renal disease; Z99.2 Dependence on renal dialysis; Z79.84 Long term (current) use of oral hypoglycemic drugs; N40.0 Benign prostatic hyperplasia without lower urinary tract symptoms; F41.9 Anxiety disorder, unspecified; D64.9 Anemia, unspecified; Z86.73 Personal history of transient ischemic attack (TIA), and cerebral infarction without residual deficits; Z86.718 Personal history of other venous thrombosis and embolism; Z95.5 Presence of coronary angioplasty implant and graft; Z95.1 Presence of aortocoronary bypass graft; Z95.0 Presence of cardiac pacemaker; Z87.891 Personal history of nicotine dependence; Z79.82 Long term (current) use of aspirin
CPT/HCPCS: 99282-25

== ENCOUNTER 2017-05-27 18:30 | Emergency (ER) | payer MEDICARE, OTHER ==
[2017-05-27 18:54] VITALS: BP 135/62; PULSE 71; TEMP 99.6; BMI 21.9
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
[2017-05-27 20:28] LABS: BASOPHIL 1.1 % (0-2.0); EOSINOPHIL 3.1 % (0-4.5); MCH 31.1 pg (25.7-33.7); MCHC 33.1 g/dl (32.0-35.9); MEAN CELL VOLUME 93.9 fl (80-96); MEAN PLT VOLUME 9.3 fl (7.5-11.1); NEUTROPHILS 74.4 % (42.8-82.8); PLATELET COUNT 135 K/MM3 (134-434); RDW 20.2 % (11.9-15.9); WHITE BLOOD COUNT 4.8 K/mm3 (4.0-10.0)
[2017-05-27 20:51] LABS: ALBUMIN 3.3 g/dl (3.4-5.0); ANION GAP 8 (8-16); CALCIUM 8.6 mg/dL (8.5-10.1); CO2 29 mmol/L (21-32)
[2017-05-27 20:59] LABS: ALK PHOS 219 U/L (45-117); BILIRUBIN,TOTAL 0.4 mg/dL (0.2-1.0); CPK 59 IU/L (39-308); CREATININE 4.6 mg/dL (0.7-1.3); GLUCOSE,RANDOM 142 mg/dL (74-106); SGOT/AST 21 U/L (15-37); SGPT/ALT 29 U/L (12-78); TOT PROT 6.7 g/dl (6.4-8.2); TROPONIN I 0.07 ng/ml (0.00-0.05)
--- NOTE | 2017-05-27 23:13 | PDOC ---
Attending Attestation - Resident Resident Name: TomrenzoMarcial - ED Attending Attestation I have performed the following: I have examined & evaluated the patient, The case was reviewed & discussed with the resident, I agree w/resident's findings & plan, Exceptions are as noted - HPI HPI: 05/27/17 23:06 66 yo male with h/o DM HTN HLD ESRD ( T/r/sat) prior dvt, cva CAD cabg and pacemaker, here today c/o right sided chest pain and back pain. pt states also having pain over his whole body. no f/c also c/o sob. states last dialysis was yesterday. no f/c no mod factors. no f/c no cough. no leg swelling. no other complaints. had fall few days ago. on exam pt awake alert lungs clear no wheeze no crackles. heart RRR no mr/g/ abd soft NT ND. skin warm and dry. righ tsided chest tunneled RAC cathetar clean and dry, intact. ext no edema. - Physicial Exam PE: 05/27/17 23:08 on exam pt awake alert lungs clear no wheeze no crackles. heart RRR no mr/g/ abd soft NT ND. skin warm and dry. righ tsided chest tunneled RAC cathetar clean and dry, intact. ext no edema. - Medical Decision Making 05/27/17 23:09 66 yo m very well known to ED here wtih cp sob and whole body pain. plan pain control, cxr r/o pna or effusion. ekg labs, bedside echo to evaluate for pericardial effusion. reassess 05/27/17 23:09 focused ED ultrasound TTE diffuse globally decreased contractility . no pericardial effusion noted. pacer wire noted. bilat lungs a line predominant. no b lines noted. no plueral effusion noted. impression: decreased contractility, no pericardial effusion. lungs: a line predominant, no b lines, no pleural effusion. cirilli 05/27/17 23:40 pt ekg unchnaged. cxr unchanged. trop mild positive at baseline per review. pt appears to be at baseline. requesting iv morphine , when offered po percocet and pt refused. states he wants to go home.
--- NOTE | 2017-05-28 13:39 | EKG ---
Test Reason : Blood Pressure : / mmHG Vent. Rate : 065 BPM Atrial Rate : 030 BPM P-R Int : 000 ms QRS Dur : 156 ms QT Int : 480 ms P-R-T Axes : 000 111 025 degrees QTc Int : 499 ms Ventricular-paced rhythm Biventricular pacemaker detected ABNORMAL ECG WHEN COMPARED WITH ECG OF 26-APR-2017 08:43, VENT. RATE HAS DECREASED BY 14 BPM Confirmed by JULIA FELIPE MD ([id number]) on 05/28/2017 1:38:46 PM Referred By: Confirmed By:JULIA FELIPE MD
== END 2017-05-28 02:21 | disposition home or self-care (01) ==
LOC: JER 18:30
DX: E11.22 Type 2 diabetes mellitus with diabetic chronic kidney disease (principal); E11.65 Type 2 diabetes mellitus with hyperglycemia; N18.6 End stage renal disease; Z95.5 Presence of coronary angioplasty implant and graft
CPT/HCPCS: 36415; 71020-TC; 80053; 84484; 85025; 93005; 93010; 99283-25

== ENCOUNTER 2017-06-04 11:17 | Observation (INO) | payer MEDICARE, OTHER ==
[2017-06-04 11:26] VITALS: BMI 21.9
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
[2017-06-04 12:09] LABS: BASOPHIL 0.6 % (0-2.0); EOSINOPHIL 7.8 % (0-4.5); MCH 30.5 pg (25.7-33.7); MCHC 32.5 g/dl (32.0-35.9); MEAN CELL VOLUME 93.9 fl (80-96); MEAN PLT VOLUME 9.3 fl (7.5-11.1); NEUTROPHILS 69.9 % (42.8-82.8); PLATELET COUNT 121 K/MM3 (134-434); RDW 19.9 % (11.9-15.9)
[2017-06-04 12:40] LABS: ALBUMIN 3.4 g/dl (3.4-5.0); ANION GAP 12 (8-16); BILIRUBIN,TOTAL 0.4 mg/dL (0.2-1.0); CALCIUM 8.3 mg/dL (8.5-10.1); CO2 29 mmol/L (21-32); CREATININE 6.5 mg/dL (0.7-1.3); GLUCOSE,RANDOM 186 mg/dL (74-106); SGOT/AST 22 U/L (15-37); SGPT/ALT 23 U/L (12-78); TOT PROT 7.5 g/dl (6.4-8.2)
[2017-06-04 12:41] LABS: ALK PHOS 209 U/L (45-117)
[2017-06-04 12:43] LABS: TROPONIN I 0.05 ng/ml (0.00-0.05)
[2017-06-04] MEDS ORDERED: MAG HYDROX/AL HYDROX/SIMETH 30 ML UNIT-DOSE CUP PO ONE (13:34)
--- NOTE | 2017-06-04 14:41 | EKG ---
Test Reason : Blood Pressure : / mmHG Vent. Rate : 068 BPM Atrial Rate : 063 BPM P-R Int : 000 ms QRS Dur : 172 ms QT Int : 480 ms P-R-T Axes : 000 085 -22 degrees QTc Int : 510 ms Ventricular-paced rhythm Biventricular pacemaker detected ABNORMAL ECG WHEN COMPARED WITH ECG OF 27-MAY-2017 20:14, VENT. RATE HAS INCREASED BY 3 BPM Confirmed by JULIA FELIPE MD ([id number]) on 06/04/2017 2:41:05 PM Referred By: Confirmed By:JULIA FELIPE MD
--- NOTE | 2017-06-04 14:59 | CONSULT ---
Consult Consult Specialty:: Nephrology Reason for Consultation:: ESRD - History of Present Illness Chief Complaint: chest discomfort History of Present Illness: Pt is a 66 year old male with pmhx of ESRD, DM, HTN, and anemia who presented to the ER with chest discomfort and vague body aches. He says she feels well now. He is due for HD today. He says he did not have a way to get to dialysis so he did not go. I called the HD unit and they are closed for the day. He does have some shortness of breath on ambulation. He denies fevers or chill. He is awake and alert. 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: CVA Cardio/Vascular: Yes: AFIB (paroxysmal), CAD (CABG, PCI/KAT), CHF, Deep Vein Thrombosis, HTN, Hyperlipdemia Renal/: Yes: Renal Failure, Hemodialysis Psych: Yes: Anxiety Endocrine: Yes: Diabetes Mellitus - Past Surgical History Past Surgical History: Yes: AICD, Amputation (right 3rd finger), CABG (3v CABG and mitral ring 2009 (GUADALUPE->LAD, SVG->LPL, SVG->D1 jump D2.), Stent - Alcohol/Substance Use Hx Alcohol Use: No History of Substance Use: reports: Prescription - Smoking History Smoking history: Former smoker Have you smoked in the past 12 months: No Aproximately how many cigarettes per day: 0 If you are a former smoker, when did you quit?: 2013 - Social History Usual Living Arrangement: With Spouse ADL: Independent History of Recent Travel: No Home Medications - Allergies Allergies/Adverse Reactions: Allergies Allergy/AdvReac Type Severity Reaction Status Date / Time No Known Drug Allergies Allergy Verified 06/04/17 11:22 - Home Medications Home Medications: Ambulatory Orders Apixaban [Eliquis -] 2.5 mg PO BID #60 tablet 12/07/16 Aspirin [ASA -] 81 mg PO DAILY #0 tab.chew 12/07/16 Carvedilol [Coreg -] 12.5 mg PO BID #60 tablet 12/07/16 Cyclobenzaprine HCl [Flexeril 10 mg] 10 mg PO Q8H PRN #12 tablet 02/12/17 Atorvastatin Ca [Lipitor] 20 mg PO HS #30 tablet 04/08/17 Gabapentin [Neurontin] 100 mg PO DAILY #30 capsule 04/08/17 Hydralazine HCl [Apresoline -] 50 mg PO BID #60 tablet 04/08/17 Isosorbide Mononitrate [Imdur -] 30 mg PO DAILY #30 tab.sr.24h 04/08/17 Sevelamer Carbonate [Renvela -] 800 mg PO TIDCM #90 tab 04/08/17 Tamsulosin HCl [Flomax -] 0.4 mg PO DAILY@0830 #30 capsule 04/08/17 Pantoprazole Sodium 40 mg PO DAILY 04/20/17 Family Disease History - Family Disease History Family Disease History: Diabetes: Brother, Heart Disease: Brother, Other: Father (Stroke) Review of Systems - Review of Systems Constitutional: reports: Malaise Eyes: reports: No Symptoms HENT: reports: No Symptoms Neck: reports: No Symptoms Cardiovascular: reports: No Symptoms Respiratory: reports: No Symptoms Gastrointestinal: reports: No Symptoms Genitourinary: reports: No Symptoms Musculoskeletal: reports: No Symptoms Neurological: reports: No Symptoms Endocrine: reports: No Symptoms Psychiatric: reports: No Symptoms Physical Exam Vital Signs: Vital Signs Temperature 98.2 F 06/04/17 11:24 Pulse Rate 67 06/04/17 11:24 Respiratory Rate 16 06/04/17 11:24 Blood Pressure 157/71 06/04/17 11:24 O2 Sat by Pulse Oximetry (%) 96 06/04/17 11:24 Constitutional: Yes: Calm Eyes: Yes: Conjunctiva Clear HENT: Yes: Atraumatic Neck: Yes: Supple Cardiovascular: Yes: S1, S2 Respiratory: Yes: CTA Bilaterally Gastrointestinal: Yes: Soft Renal/: Yes: WNL Musculoskeletal: Yes: WNL Edema: No Neurological: Yes: Oriented Psychiatric: Yes: Oriented Labs: CBC, BMP 06/04/17 12:00 06/04/17 11:54 Laboratory Tests 06/04/17 06/04/17 11:54 12:00 WBC 6.0 Hgb 11.0 L D Plt Count 121 L Sodium 136 Potassium 4.8 Chloride 95 L Carbon Dioxide 29 Anion Gap 12 BUN 56 H Creatinine 6.5 H D Imaging - Results Chest X-ray: Report Reviewed Problem List - Problems (1) Chest pain Code(s): R07.9 - CHEST PAIN, UNSPECIFIED (2) ESRD (end stage renal disease) on dialysis Code(s): N18.6 - END STAGE RENAL DISEASE Z99.2 - DEPENDENCE ON RENAL DIALYSIS Assessment/Plan Laboratory Tests 06/04/17 12:00 Creatine Kinase 92 Troponin I 0.05 Impression 1. ESRD 2. CAD 3. HTN 4. narcotic dependence 5. non compliance 6. pleural effusions 7. anemia 8. chest pain 9. DVT 10. hx GI bleed Plan - called his HD unit and they are closed for the day - will arrange for HD in hospital - resume home meds - discussed with er - monitor blood pressure - will hold off epogen as hg is 11 Dr Campos
[2017-06-04] MEDS ORDERED: ASPIRIN 81 MG CHEWABLE TABLETS PO SCH (17:00)
[2017-06-04] MEDS ORDERED: ACETAMINOPHEN 325 MG TABLET (FP) PO ONE ×2 (17:22→23:30)
--- NOTE | 2017-06-04 17:26 | HP ---
CHIEF COMPLAINT: Missed ride to dialysis. [employer] Operator: Dr. Campos HISTORY OF PRESENT ILLNESS: 66 year-old male, with a significant past medical history of HTN, HLD, CVA, DVT , CAD s/p CABG s/p stents s/p PPM, heart failure, anemia, BPH, DM, ESRD ( dialysis T,R,S). Presented to the ED after missing his ride for dialysis. Complained of chest pain in the ED, denied chest pain to this provider. Does endorse full body pain. ER course was notable for: (1) BP 196/100 Recent Travel: No Social History: Smoking: No Alcohol: No Drugs: No Family History: Allergies No Known Drug Allergies Allergy (Verified 06/04/17 11:22) HOME MEDICATIONS: Home Medications Medication Instructions Recorded Apixaban [Eliquis -] 2.5 mg PO BID #60 tablet 12/07/16 Aspirin [ASA -] 81 mg PO DAILY #0 tab.chew 12/07/16 Carvedilol [Coreg -] 12.5 mg PO BID #60 tablet 12/07/16 Cyclobenzaprine HCl [Flexeril 10 10 mg PO Q8H PRN #12 tablet 02/12/17 mg] Atorvastatin Ca [Lipitor] 20 mg PO HS #30 tablet 04/08/17 Gabapentin [Neurontin] 100 mg PO DAILY #30 capsule 04/08/17 Hydralazine HCl [Apresoline -] 50 mg PO BID #60 tablet 04/08/17 Isosorbide Mononitrate [Imdur -] 30 mg PO DAILY #30 tab.sr.24h 04/08/17 Sevelamer Carbonate [Renvela -] 800 mg PO TIDCM #90 tab 04/08/17 Tamsulosin HCl [Flomax -] 0.4 mg PO DAILY@0830 #30 capsule 04/08/17 Pantoprazole Sodium 40 mg PO DAILY 04/20/17 REVIEW OF SYSTEMS CONSTITUTIONAL: Present: Generalized body pain Absent: fever, chills, diaphoresis, generalized weakness, malaise, loss of appetite, weight change HEENT: Absent: rhinorrhea, nasal congestion, throat pain, throat swelling, difficulty swallowing, mouth swelling, ear pain, eye pain, visual changes CARDIOVASCULAR: Absent: chest pain, syncope, palpitations, irregular heart rate, lightheadedness , peripheral edema RESPIRATORY: Absent: cough, shortness of breath, dyspnea with exertion, orthopnea, wheezing, stridor, hemoptysis GASTROINTESTINAL: Absent: abdominal pain, abdominal distension, nausea, vomiting, diarrhea, constipation, melena, hematochezia GENITOURINARY: Absent: dysuria, frequency, urgency, hesitancy, hematuria, flank pain, genital pain MUSCULOSKELETAL: Absent: myalgia, arthralgia, joint swelling, back pain, neck pain SKIN: Absent: rash, itching, pallor HEMATOLOGIC/IMMUNOLOGIC: Absent: easy bleeding, easy bruising, lymphadenopathy, frequent infections ENDOCRINE: Absent: unexplained weight gain, unexplained weight loss, heat intolerance, cold intolerance NEUROLOGIC: Absent: headache, focal weakness or paresthesias, dizziness, unsteady gait, seizure, mental status changes, bladder or bowel incontinence PSYCHIATRIC: Absent: anxiety, depression, suicidal or homicidal ideation, hallucinations. PHYSICAL EXAMINATION Vital Signs - 24 hr 06/04/17 11:24 Temperature 98.2 F Pulse Rate 67 Respiratory 16 Rate Blood Pressure 157/71 O2 Sat by Pulse 96 Oximetry (%) GENERAL: Awake, alert, and fully oriented, in no acute distress. HEAD: Normal with no signs of trauma. LUNGS: Breath sounds equal, clear to auscultation bilaterally. No wheezes, and no crackles. No accessory muscle use. HEART: Regular rate and rhythm, normal S1 and S2, + murmur ABDOMEN: Soft, nontender, not distended, normoactive bowel sounds, no guarding, no rebound, no masses. No hepatomegaly or splenomegaly. MUSCULOSKELETAL: Normal range of motion at all joints. No bony deformities or tenderness. No CVA tenderness. UPPER EXTREMITIES: 2+ pulses, warm, well-perfused. No cyanosis. No clubbing. No peripheral edema. LOWER EXTREMITIES: 2+ pulses, warm, well-perfused. No calf tenderness. No peripheral edema. NEUROLOGICAL: Cranial nerves II-XII intact. Normal speech. Gait not observed. Laboratory Results - last 24 hr 06/04/17 06/04/17 06/04/17 11:54 12:00 12:00 WBC 6.0 RBC 3.60 L Hgb 11.0 L D Hct 33.8 L D MCV 93.9 MCH 30.5 MCHC 32.5 RDW 19.9 H Plt Count 121 L MPV 9.3 Neutrophils % 69.9 Lymphocytes % 7.7 L D Monocytes % 14.0 H Eosinophils % 7.8 H D Basophils % 0.6 Sodium 136 Potassium 4.8 Chloride 95 L Carbon Dioxide 29 Anion Gap 12 BUN 56 H Creatinine 6.5 H D Creat Clearance w eGFR 8.60 Random Glucose 186 H D Calcium 8.3 L Total Bilirubin 0.4 AST 22 ALT 23 D Alkaline Phosphatase 209 H Creatine Kinase 92 Troponin I 0.05 Total Protein 7.5 Albumin 3.4 Lipase 114 ASSESSMENT/PLAN 66 year-old male, with a significant past medical history of HTN, HLD, CVA, DVT , CAD s/p CABG s/p stents s/p PPM, systolic heart failure, anemia, BPH, DM, ESRD (dialysis T,R,S). Presented to the ED after missing his ride for dialysis. ESRD on HD --undergoing HD --renal following Chest pain --serial troponins Hypertension --continue home meds --continue carvedilol, hydralazine Hyperlipidemia --continue statin Systolic heart failure --continue Imdur BPH --continue Flomax h/o RUE DVT --continue Eliquis CAD s/p CABG s/p stents s/p PPM --continue carvedilol, statin, ASA, Imdur DVT prophylaxis: on Eliquis Visit type - Emergency Visit Emergency Visit: Yes ED Registration Date: 06/04/17 Care time: The patient presented to the Emergency Department on the above date and was hospitalized for further evaluation of their emergent condition. - New Patient This patient is new to me today: Yes Date on this admission: 06/04/17 - Critical Care Critical Care patient: No
[2017-06-04] MEDS ORDERED: CYCLOBENZAPRINE HCL 10 MG TABLET (FP) PO PRN (17:39)
[2017-06-04] MEDS: CARVEDILOL 12.5 MG TABLET (FP) PO SCH (21:38)
[2017-06-04] MEDS: hydrALAZINE HCL 25 MG TABLET (FP) PO SCH (21:38)
[2017-06-04] MEDS: APIXABAN 2.5 MG TABLET PO SCH (21:40)
[2017-06-04] MEDS: SEVELAMER CARBONATE 800 MG TAB (FP) PO SCH (21:43)
[2017-06-04] MEDS: ISOSORBIDE MONONITRATE 30 MG TAB.SR.24H (FP) PO SCH (21:43)
[2017-06-04] MEDS ORDERED: ATORVASTATIN CA 20 MG TABLET (FP) PO SCH (22:00)
[2017-06-05 03:49] VITALS: PULSE 60
[2017-06-05] MEDS ORDERED: ACETAMINOPHEN 325 MG TABLET (FP) PO ONE (06:59)
[2017-06-05 07:13] LABS: MCH 30.3 pg (25.7-33.7); MCHC 32.4 g/dl (32.0-35.9); MEAN CELL VOLUME 93.3 fl (80-96); MEAN PLT VOLUME 9.3 fl (7.5-11.1); PLATELET COUNT 114 K/MM3 (134-434); RDW 20.2 % (11.9-15.9)
[2017-06-05 07:40] LABS: ANION GAP 8 (8-16); CALCIUM 8.5 mg/dL (8.5-10.1); CO2 31 mmol/L (21-32); CREATININE 3.4 mg/dL (0.7-1.3); GLUCOSE,RANDOM 109 mg/dL (74-106)
[2017-06-05] MEDS ORDERED: TAMSULOSIN HCL 0.4 MG CAP.ER.24H (FP) PO SCH (08:30)
[2017-06-05] MEDS: ISOSORBIDE MONONITRATE 30 MG TAB.SR.24H (FP) PO SCH (09:06)
[2017-06-05] MEDS: hydrALAZINE HCL 25 MG TABLET (FP) PO SCH (09:06)
[2017-06-05] MEDS: SEVELAMER CARBONATE 800 MG TAB (FP) PO SCH ×2 (09:06→13:20)
[2017-06-05] MEDS: CARVEDILOL 12.5 MG TABLET (FP) PO SCH (09:07)
[2017-06-05] MEDS ORDERED: PANTOPRAZOLE 40 MG TABLET (FP) PO SCH (10:00)
[2017-06-05] MEDS ORDERED: GABAPENTIN 100 MG CAPSULE (FP) PO SCH (10:00)
[2017-06-05] MEDS: APIXABAN 2.5 MG TABLET PO SCH (10:20)
--- NOTE | 2017-06-05 12:46 | DS ---
Physical Exam: SUBJECTIVE: Patient seen and examined OBJECTIVE: Vital Signs Period Temp Pulse Resp BP Sys/Hinds Pulse Ox Last 24 Hr 97.5 F-98.8 F 60-80 18-18 102-196/7-100 96 PHYSICAL EXAM GENERAL: The patient is awake, alert, and fully oriented, in no acute distress. HEAD: Normal with no signs of trauma. EYES: PERRL, extraocular movements intact, sclera anicteric, conjunctiva clear. ENT: Ears normal, nares patent, oropharynx clear without exudates, moist mucous membranes. NECK: Trachea midline, full range of motion, supple. LUNGS: Breath sounds equal, clear to auscultation bilaterally, no wheezes, no crackles, no accessory muscle use. HEART: Regular rate and rhythm, S1, S2 without murmur, rub or gallop. ABDOMEN: Soft, nontender, nondistended, normoactive bowel sounds, no guarding, no rebound, no hepatosplenomegaly, no masses. EXTREMITIES: 2+ pulses, warm, well-perfused, no edema. NEUROLOGICAL: Cranial nerves II through XII grossly intact. Normal speech, gait not observed. PSYCH: Normal mood, normal affect. SKIN: Warm, dry, normal turgor, no rashes or lesions noted. LABS Laboratory Results - last 24 hr 06/04/17 06/04/17 06/05/17 21:00 22:00 06:15 WBC 4.0 D RBC 3.49 L Hgb 10.6 L Hct 32.6 L MCV 93.3 MCH 30.3 MCHC 32.4 RDW 20.2 H Plt Count 114 L MPV 9.3 Sodium Potassium Chloride Carbon Dioxide Anion Gap BUN Creatinine Random Glucose Calcium Troponin I Cancelled 0.05 06/05/17 06:15 WBC RBC Hgb Hct MCV MCH MCHC RDW Plt Count MPV Sodium 139 Potassium 4.1 Chloride 100 Carbon Dioxide 31 Anion Gap 8 BUN 22 H D Creatinine 3.4 H D Random Glucose 109 H D Calcium 8.5 Troponin I HOSPITAL COURSE: Date of Admission:06/04/17 Date of Discharge: 06/05/17 66 year-old male, with a significant past medical history of HTN, HLD, CVA, DVT , CAD s/p CABG s/p stents s/p PPM, systolic heart failure, anemia, BPH, DM, ESRD (dialysis T,R,S). Presented to the ED after missing his ride for dialysis. ESRD on HD --HD on 06/04; tolerated well Chest pain --serial troponins negative --chest pain resolved shortly after admission Hypertension --continued carvedilol, hydralazine Hyperlipidemia --continued statin Systolic heart failure --continued Imdur BPH --continued Flomax h/o RUE DVT --continued Eliquis CAD s/p CABG s/p stents s/p PPM --continued carvedilol, statin, ASA, Imdur Minutes to complete discharge: 35 Discharge Summary Reason For Visit: END STAGE RENAL DISEASE; CHEST PAIN Current Active Problems Chest pain (Acute) Mastoiditis (Acute) Parotid gland enlargement (Acute) SVC syndrome (Acute) Swollen arm (Acute) BPH (benign prostatic hypertrophy) (Chronic) Chronic pain disorder (Chronic) DVT (deep venous thrombosis) (Chronic) Drug-seeking behavior (Chronic) ESRD (end stage renal disease) on dialysis (Chronic) Fluid overload (Chronic) Hematoma (Chronic) Hyperlipidemia (Chronic) Hypertension (Chronic) Noncompliance of patient with renal dialysis (Chronic) PAF (paroxysmal atrial fibrillation) (Chronic) Type 2 diabetes mellitus (Chronic) Condition: Improved - Instructions Diet, Activity, Other Instructions: It's important you go to your regular scheduled dialysis appointments. Referrals: Yrn Torres MD [Primary Care Provider] - Disposition: HOME - Home Medications Comprehensive Discharge Medication List: Ambulatory Orders Apixaban [Eliquis -] 2.5 mg PO BID #60 tablet 12/07/16 Aspirin [ASA -] 81 mg PO DAILY #0 tab.chew 12/07/16 Carvedilol [Coreg -] 12.5 mg PO BID #60 tablet 12/07/16 Cyclobenzaprine HCl [Flexeril 10 mg] 10 mg PO Q8H PRN #12 tablet 02/12/17 Atorvastatin Ca [Lipitor] 20 mg PO HS #30 tablet 04/08/17 Gabapentin [Neurontin] 100 mg PO DAILY #30 capsule 04/08/17 Hydralazine HCl [Apresoline -] 50 mg PO BID #60 tablet 04/08/17 Isosorbide Mononitrate [Imdur -] 30 mg PO DAILY #30 tab.sr.24h 04/08/17 Sevelamer Carbonate [Renvela -] 800 mg PO TIDCM #90 tab 04/08/17 Tamsulosin HCl [Flomax -] 0.4 mg PO DAILY@0830 #30 capsule 04/08/17 Pantoprazole Sodium 40 mg PO DAILY 04/20/17 This patient is new to me today: Yes Date on this admission: 06/05/17 Emergency Visit: Yes ED Registration Date: 06/04/17 Care time: The patient presented to the Emergency Department on the above date and was hospitalized for further evaluation of their emergent condition. Critical Care patient: No - Discharge Referral Referred to [facility] Med P.C.: No
[2017-06-05 14:39] VITALS: BP 110/50; TEMP 98
[2017-06-09 00:11] LABS: HEP B SURFACE AB Non Reactive (.)
== END 2017-06-05 14:40 | disposition home or self-care (01) ==
LOC: JER 11:17 → JERBED 16:19 → J5S 20:16
PROVIDERS: ADMIT Internal Medicine; ATTEND Nurse Practitioner Acute Care
DX: I12.0 Hypertensive chronic kidney disease with stage 5 chronic kidney disease or end stage renal disease (principal); N18.6 End stage renal disease; Z99.2 Dependence on renal dialysis; Z91.15 Patient's noncompliance with renal dialysis; R07.9 Chest pain, unspecified; N64.4 Mastodynia; K11.1 Hypertrophy of salivary gland; I87.1 Compression of vein; R22.30 Localized swelling, mass and lump, unspecified upper limb; N40.0 Benign prostatic hyperplasia without lower urinary tract symptoms; G89.29 Other chronic pain; I82.723 Chronic embolism and thrombosis of deep veins of upper extremity, bilateral; Z79.01 Long term (current) use of anticoagulants; Z76.5 Malingerer [conscious simulation]; E87.70 Fluid overload, unspecified; E78.5 Hyperlipidemia, unspecified; I48.0 Paroxysmal atrial fibrillation; E11.9 Type 2 diabetes mellitus without complications; I25.10 Atherosclerotic heart disease of native coronary artery without angina pectoris; Z86.73 Personal history of transient ischemic attack (TIA), and cerebral infarction without residual deficits; I73.9 Peripheral vascular disease, unspecified; Z95.1 Presence of aortocoronary bypass graft; Z95.0 Presence of cardiac pacemaker; F41.9 Anxiety disorder, unspecified; D64.9 Anemia, unspecified; Z95.5 Presence of coronary angioplasty implant and graft; I50.22 Chronic systolic (congestive) heart failure; Z87.891 Personal history of nicotine dependence; Z79.82 Long term (current) use of aspirin; J90 Pleural effusion, not elsewhere classified; Z89.021 Acquired absence of right finger(s)
CPT/HCPCS: 36415; 71010-TC; 80048; 80053; 83690; 84484; 85025; 85027; 86704; 86706; 86708; 86803; 87340; 93005; 93010; 99284-25; G0378

== ENCOUNTER 2017-06-10 09:34 | Observation (INO) | payer OTHER ==
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
[2017-06-10 14:03] LABS: BASOPHIL 0.9 % (0-2.0); EOSINOPHIL 7.3 % (0-4.5); MCH 30.7 pg (25.7-33.7); MCHC 32.1 g/dl (32.0-35.9); MEAN CELL VOLUME 95.7 fl (80-96); MEAN PLT VOLUME 8.9 fl (7.5-11.1); NEUTROPHILS 64.5 % (42.8-82.8); PLATELET COUNT 104 K/MM3 (134-434); RDW 20.1 % (11.9-15.9)
[2017-06-10 14:18] LABS: INR 1.08 (0.82-1.09); PROTHROMBIN TIME (PATIENT) 11.9 SEC (9.98-11.88)
[2017-06-10 14:42] LABS: TROPONIN I 0.07 ng/ml (0.00-0.05)
[2017-06-10 15:52] LABS: ALBUMIN 3.4 g/dl (3.4-5.0); ALK PHOS 257 U/L (45-117); ANION GAP 9 (8-16); BILIRUBIN,TOTAL 0.5 mg/dL (0.2-1.0); CALCIUM 9.1 mg/dL (8.5-10.1); CO2 27 mmol/L (21-32); CREATININE 5.1 mg/dL (0.7-1.3); GLUCOSE,RANDOM 156 mg/dL (74-106); SGOT/AST 37 U/L (15-37); SGPT/ALT 35 U/L (12-78); TOT PROT 7.5 g/dl (6.4-8.2)
[2017-06-10 16:12] LABS: ACETONE SERUM NEGATIVE (NEGATIVE)
[2017-06-10] MEDS ORDERED: ACETAMINOPHEN 1000 MG/100 ML VIAL (NON FORMULARY) IVPB ONE (16:22)
--- NOTE | 2017-06-10 16:58 | HP ---
CHIEF COMPLAINT: "My chest hurts." PCP: Yrn Torres Cardiology: "Cong" HISTORY OF PRESENT ILLNESS: 66 yo M with a PMHx of anemia, HTN, HLD, CVA, DVT, CAD s/p CAGB, pacemaker and stents, CHF, DM, ESRD (dialysis T,R,S and still makes urine), enlarged prostate and anxiety who presents with lightheadedness, chest pain and SOB. He states he awoke this AM with a generalized unspecified pain over his left chest and some "vibrations" around his AICD. He denies discharge of AICD. He denies fevers, chills, cough, nausea, vomiting, diarrhea, constipation, dysuria, frequency or urgency. 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 Social History: Smoking: denies Alcohol: denies Drugs: denies Family History: Allergies No Known Drug Allergies Allergy (Verified 06/10/17 09:44) HOME MEDICATIONS: Home Medications Medication Instructions Recorded Apixaban [Eliquis -] 2.5 mg PO BID #60 tablet 12/07/16 Aspirin [ASA -] 81 mg PO DAILY #0 tab.chew 12/07/16 Carvedilol [Coreg -] 12.5 mg PO BID #60 tablet 12/07/16 Cyclobenzaprine HCl [Flexeril 10 10 mg PO Q8H PRN #12 tablet 02/12/17 mg] Atorvastatin Ca [Lipitor] 20 mg PO HS #30 tablet 04/08/17 Gabapentin [Neurontin] 100 mg PO DAILY #30 capsule 04/08/17 Hydralazine HCl [Apresoline -] 50 mg PO BID #60 tablet 04/08/17 Isosorbide Mononitrate [Imdur -] 30 mg PO DAILY #30 tab.sr.24h 04/08/17 Sevelamer Carbonate [Renvela -] 800 mg PO TIDCM #90 tab 04/08/17 Tamsulosin HCl [Flomax -] 0.4 mg PO DAILY@0830 #30 capsule 04/08/17 Pantoprazole Sodium 40 mg PO DAILY 04/20/17 REVIEW OF SYSTEMS CONSTITUTIONAL: Absent: fever, chills, diaphoresis, generalized weakness, malaise, loss of appetite, weight change HEENT: Absent: rhinorrhea, nasal congestion, throat pain, throat swelling, difficulty swallowing, mouth swelling, ear pain, eye pain, visual changes CARDIOVASCULAR: Present- chest pain, lightheadedness Absent: syncope, palpitations, irregular heart rate, peripheral edema RESPIRATORY: Present- shortness of breath Absent: cough, dyspnea with exertion, orthopnea, wheezing, stridor, hemoptysis GASTROINTESTINAL: Absent: abdominal pain, abdominal distension, nausea, vomiting, diarrhea, constipation, melena, hematochezia GENITOURINARY: Absent: dysuria, frequency, urgency, hesitancy, hematuria, flank pain, genital pain MUSCULOSKELETAL: Absent: myalgia, arthralgia, joint swelling, back pain, neck pain SKIN: Absent: rash, itching, pallor HEMATOLOGIC/IMMUNOLOGIC: Absent: easy bleeding, easy bruising, lymphadenopathy, frequent infections ENDOCRINE: Absent: unexplained weight gain, unexplained weight loss, heat intolerance, cold intolerance NEUROLOGIC: Absent: headache, focal weakness or paresthesias, dizziness, unsteady gait, seizure, mental status changes, bladder or bowel incontinence PSYCHIATRIC: Absent: anxiety, depression, suicidal or homicidal ideation, hallucinations. PHYSICAL EXAMINATION Vital Signs - 24 hr 06/10/17 06/10/17 09:44 14:39 Temperature 98 F Pulse Rate 74 Pulse Rate [ 70 Apical] Respiratory 18 16 Rate Blood Pressure 187/64 Blood Pressure 175/66 [Left Arm] O2 Sat by Pulse 98 98 Oximetry (%) GENERAL: Awake, alert, and fully oriented, in no acute distress. HEAD: Normal with no signs of trauma. Non-edematous swelling to mandible present. EYES: Pupils equal, round and reactive to light, extraocular movements intact, sclera anicteric, conjunctiva clear. No lid lag. EARS, NOSE, THROAT: Ears normal, nares patent, oropharynx clear without exudates. Moist mucous membranes. NECK: Normal range of motion, supple without lymphadenopathy, JVD, or masses. Non-edematous swelling present circumferentially. No stridor auscultated. LUNGS: Breath sounds equal, clear to auscultation bilaterally. No wheezes, and no crackles. No accessory muscle use. HEART: Regular rate and rhythm, normal S1 and S2 without murmur, rub or gallop. Not TTP. Palpable AICD/PPM in left chest. Vas-cath to right chest. ABDOMEN: Soft, nontender, not distended, normoactive bowel sounds, no guarding, no rebound, no masses. Liver palpated 3 cm below ribs. No splenomegaly. MUSCULOSKELETAL: Normal range of motion at all joints. No bony deformities or tenderness. No CVA tenderness. UPPER EXTREMITIES: 2+ pulses, warm, well-perfused. No cyanosis. No clubbing. No peripheral edema. Right 3rd digit amputation. Right fistula (-)bruit, (-) thrill. LOWER EXTREMITIES: 2+ pulses, warm, well-perfused. No calf tenderness. No peripheral edema. NEUROLOGICAL: Cranial nerves II-XII intact. Normal speech. Normal gait. PSYCHIATRIC: Cooperative. Good eye contact. Appropriate mood and affect. SKIN: Warm, dry, normal turgor, no rashes or lesions noted, normal capillary refill. Laboratory Results - last 24 hr 06/10/17 06/10/17 06/10/17 11:40 13:40 13:40 WBC 5.0 RBC 3.54 L Hgb 10.9 L Hct 33.9 L MCV 95.7 MCH 30.7 MCHC 32.1 RDW 20.1 H Plt Count 104 L MPV 8.9 Neutrophils % 64.5 Lymphocytes % 10.2 D Monocytes % 17.1 H Eosinophils % 7.3 H Basophils % 0.9 INR PTT (Actin FS) Sodium Potassium Chloride Carbon Dioxide Anion Gap BUN Creatinine Creat Clearance w eGFR POC Glucometer [phone] Random Glucose Lactic Acid Calcium Total Bilirubin AST ALT Alkaline Phosphatase Ammonia Creatine Kinase 112 Troponin I 0.07 H D B-Natriuretic Peptide 29956.14 H Total Protein Albumin Acetone, Qual Blood Type Antibody Screen 06/10/17 06/10/17 06/10/17 13:40 13:40 13:40 WBC RBC Hgb Hct MCV MCH MCHC RDW Plt Count MPV Neutrophils % Lymphocytes % Monocytes % Eosinophils % Basophils % INR 1.08 PTT (Actin FS) 40.0 H Sodium 137 Potassium 4.8 Chloride 101 Carbon Dioxide 27 Anion Gap 9 BUN 42 H D Creatinine 5.1 H D Creat Clearance w eGFR 11.37 POC Glucometer Random Glucose 156 H D Lactic Acid Calcium 9.1 Total Bilirubin 0.5 D AST 37 D ALT 35 D Alkaline Phosphatase 257 H D Ammonia 96.06 H Creatine Kinase Troponin I B-Natriuretic Peptide Total Protein 7.5 Albumin 3.4 Acetone, Qual Negative Blood Type Antibody Screen 06/10/17 06/10/17 13:40 13:40 WBC RBC Hgb Hct MCV MCH MCHC RDW Plt Count MPV Neutrophils % Lymphocytes % Monocytes % Eosinophils % Basophils % INR PTT (Actin FS) Sodium Potassium Chloride Carbon Dioxide Anion Gap BUN Creatinine Creat Clearance w eGFR POC Glucometer Random Glucose Lactic Acid 1.0 Calcium Total Bilirubin AST ALT Alkaline Phosphatase Ammonia Creatine Kinase Troponin I B-Natriuretic Peptide Total Protein Albumin Acetone, Qual Blood Type O POSITIVE Antibody Screen Negative Imaging: CXR- EXAM#: TYPE/EXAM: RESULT: [id number] RAD/CHEST PA LAT Chest: HISTORY: Shortness of breath. Frontal view of the chest is provided. Prior study is dated June 04. There is prominence of the cardiomediastinal silhouette similar in appearance prior study. Pacer device, right-sided catheter, heart valve prosthesis, sternotomy wires and clips are again seen. Patient is slightly rotated and the overlying soft tissues somewhat obscure the left base. No definite focal infiltrate is seen. There is a suboptimal inspiratory effort report. IMPRESSION: No significant change compared to prior study. Reported By: Compa Doran MD 06/10/[address]- EXAM#: TYPE/EXAM: RESULT: [id number] CT/HEAD CT WITHOUT CONTRAST Dizziness. CT scan of the brain without intravenous contrast. Since prior CT scan of the head dated 01/18/2017, there remains [id number] volume loss and ventricular dilatation. Focal encephalomalacia again seen in the right cerebellum, inferiorly as well as in the right occipital lobe, posterior/ medially. No mass lesion, gross acute infarct or intracranial hemorrhage are identified. There is no shift of the midline structures. Visualized paranasal sinuses and mastoid air cells are well aerated. Calcification of the cavernous carotid arteries are present. There is a trace of bilateral mastoid effusion IMPRESSION: See discussion above. No significant interval change or acute intracranial pathology is identified. Correlate clinically to determine further evaluation and follow-up Reported By: Osmany Strong MD 06/10/17 2838 ASSESSMENT/PLAN: A: 66yo man with multiple medical problems now with left sided chest pain, SOB and room spinning dizziness. P: 1. Chest pain ACS vs musculoskeletal - serial troponin - o2 titrated to maintain Spo2>94 - daily ASA - Eliquis - Continue Coreg - Cardiology consult 2. HTN - poorly controlled - unsure if he took his meds today - continue home Iso MN - home Hydralazine - home Coreg 3. Systolic HF - Iso MN 4. Hepatic encephalopathy - NH4- 96 - Lactulose 20g now - repeat NH4 in AM 5. ESRD on HD - right chest vas-cath - Renal consult - CMP with Phos in AM - home Renagel - ?HD tomorrow 6. HLD - AM lipid panel - home Lipitor 7. h/o CVA - home Eliquis 8. DM - FS qACHS - ISS 9. F/E/N - Low Na, renal, diabetic diet - daily bmp 10. PPX - deferred / Eliquis Dispo- requires observation of his acute medical conditions Visit type - Emergency Visit Emergency Visit: Yes ED Registration Date: 06/10/17 Care time: The patient presented to the Emergency Department on the above date and was hospitalized for further evaluation of their emergent condition. - New Patient This patient is new to me today: Yes Date on this admission: 06/14/17 - Critical Care Critical Care patient: No
[2017-06-10] MEDS ORDERED: LACTULOSE 20 GM/30 ML UDC (FOR ORAL USE ONLY) PO ONE (17:02)
[2017-06-10] MEDS ORDERED: ACETAMINOPHEN 325 MG TABLET (FP) PO ONE (18:26)
--- NOTE | 2017-06-10 21:54 | CONSULT ---
Consult Consult Specialty:: Nephrology Reason for Consultation:: ESRD - History of Present Illness Chief Complaint: chest pain and vertigo History of Present Illness: Pt is a 66 year old male with pmhx of esrd on HD, CVA, PVD, CAD, DVT, HTN, non compliance, narcotic dependence, CAD, DM and anxiety who presents to the ER complaining of chest pain and vertigo. He says that the symptoms began this morning. He says his last HD was on Thursday. He denies headache. He denies fevers or chills. He is asking for pain medications. He says his entire body hurts. He denies abdominal pain or diarrhea. He is awake and alert. Pt seen and examined earlier today in the ER. 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 Cardio/Vascular: Yes: AFIB (paroxysmal), CAD (CABG, PCI/KAT), CHF, Deep Vein Thrombosis, HTN, Hyperlipdemia Renal/: Yes: Renal Failure, Hemodialysis Psych: Yes: Anxiety Endocrine: Yes: Diabetes Mellitus - Past Surgical History Past Surgical History: Yes: AICD, Amputation (right 3rd finger), CABG (3v CABG and mitral ring 2009 (GUADALUPE->LAD, SVG->LPL, SVG->D1 jump D2.), Stent - Alcohol/Substance Use Hx Alcohol Use: No History of Substance Use: reports: Prescription - Smoking History Smoking history: Former smoker Have you smoked in the past 12 months: No Aproximately how many cigarettes per day: 0 If you are a former smoker, when did you quit?: 2013 - Social History Usual Living Arrangement: With Spouse ADL: Independent History of Recent Travel: No Home Medications - Allergies Allergies/Adverse Reactions: Allergies Allergy/AdvReac Type Severity Reaction Status Date / Time No Known Drug Allergies Allergy Verified 06/10/17 09:44 - Home Medications Home Medications: Ambulatory Orders Apixaban [Eliquis -] 2.5 mg PO BID #60 tablet 12/07/16 Aspirin [ASA -] 81 mg PO DAILY #0 tab.chew 12/07/16 Carvedilol [Coreg -] 12.5 mg PO BID #60 tablet 12/07/16 Cyclobenzaprine HCl [Flexeril 10 mg] 10 mg PO Q8H PRN #12 tablet 02/12/17 Atorvastatin Ca [Lipitor] 20 mg PO HS #30 tablet 04/08/17 Gabapentin [Neurontin] 100 mg PO DAILY #30 capsule 04/08/17 Hydralazine HCl [Apresoline -] 50 mg PO BID #60 tablet 04/08/17 Isosorbide Mononitrate [Imdur -] 30 mg PO DAILY #30 tab.sr.24h 04/08/17 Sevelamer Carbonate [Renvela -] 800 mg PO TIDCM #90 tab 04/08/17 Tamsulosin HCl [Flomax -] 0.4 mg PO DAILY@0830 #30 capsule 04/08/17 Pantoprazole Sodium 40 mg PO DAILY 04/20/17 Family Disease History - Family Disease History Family Disease History: Diabetes: Brother, Heart Disease: Brother, Other: Father (Stroke) Review of Systems - Review of Systems Constitutional: reports: Malaise Eyes: reports: No Symptoms HENT: reports: No Symptoms Neck: reports: No Symptoms Cardiovascular: reports: Chest Pain Respiratory: reports: No Symptoms Gastrointestinal: reports: No Symptoms Genitourinary: reports: No Symptoms Musculoskeletal: reports: No Symptoms Neurological: reports: Dizziness Endocrine: reports: No Symptoms Hematology/Lymphatic: reports: No Symptoms Physical Exam Vital Signs: Vital Signs Temperature 97.8 F 06/10/17 20:21 Pulse Rate 63 06/10/17 20:21 Respiratory Rate 18 06/10/17 20:21 Blood Pressure 175/83 06/10/17 20:21 O2 Sat by Pulse Oximetry (%) 96 06/10/17 20:21 Constitutional: Yes: Calm Eyes: Yes: Conjunctiva Clear Neck: Yes: Supple Cardiovascular: Yes: S1, S2 Respiratory: Yes: CTA Bilaterally Gastrointestinal: Yes: Soft Renal/: Yes: WNL Musculoskeletal: Yes: WNL Edema: No Neurological: Yes: Oriented Psychiatric: Yes: Oriented Labs: Laboratory Tests 06/10/17 06/10/17 13:40 13:40 WBC 5.0 Hgb 10.9 L Plt Count 104 L Sodium 137 Potassium 4.8 BUN 42 H D Creatinine 5.1 H D Acetone, Qual Negative Imaging - Results Chest X-ray: Report Reviewed Cat Scan: Report Reviewed Problem List - Problems (1) Hyperlipidemia Code(s): E78.5 - HYPERLIPIDEMIA, UNSPECIFIED Qualifiers: Hyperlipidemia type: pure hypercholesterolemia Qualified Code(s): E78.00 - Pure hypercholesterolemia, unspecified; E78.0 - Pure hypercholesterolemia (2) Hypertension Code(s): I10 - ESSENTIAL (PRIMARY) HYPERTENSION Qualifiers: Hypertension type: essential hypertension Qualified Code(s): I10 - Essential (primary) hypertension (3) Noncompliance of patient with renal dialysis Code(s): Z91.15 - PATIENT'S NONCOMPLIANCE WITH RENAL DIALYSIS (4) End stage renal disease Code(s): N18.6 - END STAGE RENAL DISEASE Assessment/Plan Current Medications Generic Name Dose Route Start Last Admin Trade Name Freq PRN Reason Stop Dose Admin Apixaban 2.5 mg 06/10/17 22:00 Eliquis - PO BID [facility] Aspirin 81 mg 06/11/17 10:00 Asa - PO DAILY [facility] Atorvastatin Calcium 20 mg 06/10/17 22:00 Lipitor - PO HS [facility] Carvedilol 12.5 mg 06/10/17 22:00 Coreg - PO BID [facility] Gabapentin 100 mg 06/11/17 10:00 Neurontin - PO DAILY [facility] Hydralazine HCl 50 mg 06/10/17 22:00 Apresoline - PO BID [facility] Insulin Aspart 1 vial 06/10/17 22:00 Novolog Vial Sliding Scale - SQ ACHS [facility] Protocol Isosorbide Mononitrate 30 mg 06/11/17 10:00 Imdur - PO DAILY [facility] Pantoprazole Sodium 40 mg 06/11/17 10:00 Protonix - PO DAILY [facility] Sevelamer Carbonate 800 mg 06/10/17 17:30 Renvela - PO TIDCM [facility] Tamsulosin HCl 0.4 mg 06/11/17 08:30 Flomax - PO DAILY@0830 [facility] Impression 1. ESRD 2. CAD 3. HTN 4. narcotic dependence 5. non compliance 6. pleural effusions 7. anemia 8. chest pain 9. DVT 10. hx GI bleed Plan - will arrange for HD in am - resume home meds - follow cardiac enzymes - bnp is chronically elevated - monitor blood pressure - will follow Dr Campos
[2017-06-10] MEDS ORDERED: ATORVASTATIN CA 20 MG TABLET (FP) PO SCH (22:00)
[2017-06-10] MEDS: SEVELAMER CARBONATE 800 MG TAB (FP) PO SCH (23:44)
[2017-06-10] MEDS: INSULIN SLIDING SCALE (NOVOLOG) 1 VIAL SQ SCH (23:45)
[2017-06-10] MEDS: CARVEDILOL 12.5 MG TABLET (FP) PO SCH (23:53)
[2017-06-10] MEDS: APIXABAN 2.5 MG TABLET PO SCH (23:53)
[2017-06-10] MEDS: hydrALAZINE HCL 50 MG TABLET (FP) PO SCH (23:53)
[2017-06-11] MEDS: morphine CARPU-JECT 2 MG/1 ML DISP.SYRIN IVPUSH ONE ×2 (00:36→01:39)
[2017-06-11] MEDS ORDERED: oxyCODONE HCL 5 MG TABLET PO ONE (01:29)
[2017-06-11 01:47] LABS: TROPONIN I 0.07 ng/ml (0.00-0.05)
[2017-06-11 04:06] VITALS: BMI 22.0
[2017-06-11] MEDS: INSULIN SLIDING SCALE (NOVOLOG) 1 VIAL SQ SCH ×2 (06:48→14:40)
[2017-06-11] MEDS: SEVELAMER CARBONATE 800 MG TAB (FP) PO SCH ×2 (07:50→14:41)
[2017-06-11 08:09] LABS: BASOPHIL 1.4 % (0-2.0); EOSINOPHIL 9.9 % (0-4.5); MCH 30.5 pg (25.7-33.7); MCHC 32.1 g/dl (32.0-35.9); MEAN PLT VOLUME 8.8 fl (7.5-11.1); NEUTROPHILS 63.3 % (42.8-82.8); PLATELET COUNT 99 K/MM3 (134-434); RDW 19.4 % (11.9-15.9); WHITE BLOOD COUNT 3.7 K/mm3 (4.0-10.0)
[2017-06-11] MEDS ORDERED: TAMSULOSIN HCL 0.4 MG CAP.ER.24H (FP) PO SCH (08:30)
[2017-06-11 08:50] LABS: CHOLESTEROL 91 mg/dL (50-200); PHOSPHOROUS 4.7 mg/dL (2.5-4.9)
[2017-06-11] MEDS ORDERED: traMADol HCL 50 MG TABLET PO PRN (09:21)
[2017-06-11] MEDS: CARVEDILOL 12.5 MG TABLET (FP) PO SCH (09:52)
[2017-06-11] MEDS: APIXABAN 2.5 MG TABLET PO SCH (09:52)
[2017-06-11] MEDS: hydrALAZINE HCL 50 MG TABLET (FP) PO SCH (09:52)
[2017-06-11] MEDS ORDERED: ISOSORBIDE MONONITRATE 30 MG TAB.SR.24H (FP) PO SCH (10:00)
[2017-06-11] MEDS ORDERED: PANTOPRAZOLE 40 MG TABLET (FP) PO SCH (10:00)
[2017-06-11] MEDS ORDERED: GABAPENTIN 100 MG CAPSULE (FP) PO SCH (10:00)
[2017-06-11] MEDS ORDERED: ASPIRIN 81 MG CHEWABLE TABLETS PO SCH (10:00)
[2017-06-11 10:35] LABS: ALBUMIN 3.2 g/dl (3.4-5.0); ALK PHOS 206 U/L (45-117); ANION GAP 14 (8-16); BILIRUBIN,TOTAL 0.5 mg/dL (0.2-1.0); CALCIUM 8.9 mg/dL (8.5-10.1); CO2 23 mmol/L (21-32); CREATININE 5.8 mg/dL (0.7-1.3); GLUCOSE,RANDOM 182 mg/dL (74-106); SGOT/AST 28 U/L (15-37); SGPT/ALT 30 U/L (12-78); TOT PROT 6.7 g/dl (6.4-8.2)
--- NOTE | 2017-06-11 11:31 | EKG ---
Test Reason : Blood Pressure : / mmHG Vent. Rate : 074 BPM Atrial Rate : 092 BPM P-R Int : 000 ms QRS Dur : 166 ms QT Int : 450 ms P-R-T Axes : 000 092 010 degrees QTc Int : 499 ms Ventricular-paced rhythm Biventricular pacemaker detected ABNORMAL ECG WHEN COMPARED WITH ECG OF 04-JUN-2017 12:18, VENT. RATE HAS INCREASED BY 6 BPM Confirmed by JULIA FELIPE MD ([id number]) on 06/11/2017 11:31:45 AM Referred By: Confirmed By:JULIA FELIPE MD
--- NOTE | 2017-06-11 12:01 | CON.CARD ---
Consult Consult Specialty:: cardiology - History of Present Illness History of Present Illness: The patient is a 66 year old male, well known to the ER, with a significant past medical history of ESRD (on dialysis T,Th,S; last dialysis 06/09/17), HTN, HLD, CVA, PVD, CAD s/p CABG and pacemaker, DM, and anxiety who presents to the ED complaining of dizziness and chest pain since yesterday. The patient reports his dizziness is due to his diabetes. States that it feels like he is going to pass out. Denies room-spinning sensation. He reports some chest pain and shortness of breath, but denies any diaphoresis or palpitations. Patient reports diffuse body aches and a cough productive of green sputum and wheezing, but denies any fever, chills, or headache. Patient states he last took his insulin on thursday, because he was feeling dizzy. He denies any nausea, vomiting , diarrhea, or constipation. He denies any dysuria, hematuria, frequency, or urgency. Patient admits he has not been eating, because he has no appetite. Allergies: NKDA Social History: Non smoker. No ETOH or recreational drug use. 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 Cardio/Vascular: Yes: AFIB (paroxysmal), CAD (CABG, PCI/KAT), CHF, Deep Vein Thrombosis, HTN, Hyperlipdemia Renal/: Yes: Renal Failure, Hemodialysis Psych: Yes: Anxiety Endocrine: Yes: Diabetes Mellitus - Past Surgical History Past Surgical History: Yes: AICD, Amputation (right 3rd finger), CABG (3v CABG and mitral ring 2009 (GUADALUPE->LAD, SVG->LPL, SVG->D1 jump D2.), Stent - Alcohol/Substance Use Hx Alcohol Use: No History of Substance Use: reports: Prescription - Smoking History Smoking history: Former smoker Have you smoked in the past 12 months: No Aproximately how many cigarettes per day: 0 If you are a former smoker, when did you quit?: 2013 - Social History Usual Living Arrangement: With Spouse ADL: Independent History of Recent Travel: No Home Medications - Allergies Allergies/Adverse Reactions: Allergies Allergy/AdvReac Type Severity Reaction Status Date / Time No Known Drug Allergies Allergy Verified 06/10/17 09:44 - Home Medications Home Medications: Ambulatory Orders Apixaban [Eliquis -] 2.5 mg PO BID #60 tablet 12/07/16 Aspirin [ASA -] 81 mg PO DAILY #0 tab.chew 12/07/16 Carvedilol [Coreg -] 12.5 mg PO BID #60 tablet 12/07/16 Cyclobenzaprine HCl [Flexeril 10 mg] 10 mg PO Q8H PRN #12 tablet 02/12/17 Atorvastatin Ca [Lipitor] 20 mg PO HS #30 tablet 04/08/17 Gabapentin [Neurontin] 100 mg PO DAILY #30 capsule 04/08/17 Hydralazine HCl [Apresoline -] 50 mg PO BID #60 tablet 04/08/17 Isosorbide Mononitrate [Imdur -] 30 mg PO DAILY #30 tab.sr.24h 04/08/17 Sevelamer Carbonate [Renvela -] 800 mg PO TIDCM #90 tab 04/08/17 Tamsulosin HCl [Flomax -] 0.4 mg PO DAILY@0830 #30 capsule 04/08/17 Pantoprazole Sodium 40 mg PO DAILY 04/20/17 Family Disease History - Family Disease History Family Disease History: Diabetes: Brother, Heart Disease: Brother, Other: Father (Stroke) Vital Signs: Vital Signs Temperature 97.3 F L 06/11/17 08:36 Pulse Rate 63 06/11/17 08:36 Respiratory Rate 20 06/11/17 08:36 Blood Pressure 141/59 06/11/17 08:36 O2 Sat by Pulse Oximetry (%) 97 06/10/17 22:00 - Other Data Labs, Other Data: CBC, BMP 06/11/17 06:10 06/11/17 08:00 INR, PTT INR 1.08 (0.82-1.09) 06/10/17 13:40 Troponin, BNP 06/11/17 00:47 Troponin I 0.07 H Troponin, BNP 06/11/17 00:47 Troponin I 0.07 H
[2017-06-11 14:06] VITALS: TEMP 97.4
--- NOTE | 2017-06-11 14:28 | DS ---
Physical Exam: SUBJECTIVE: Patient seen and examined. He request pain medication and dialysis and is finished eating breakfast. No reports of chest pain at this time. OBJECTIVE: Vital Signs Period Temp Pulse Resp BP Sys/Hinds Pulse Ox Last 24 Hr 97.3 F-97.8 F 60-64 18-20 84-175/4-83 96-98 PE Neuro: alert, awake, cn 2-12intact Pulm: CTAB CV: s1 s2 rrr, RCW permacath cdi, no reproducible chest pain Abd: s nt nd + bs Ext: warm, no le edema, R hand third digit amputation Laboratory Results - last 24 hr 06/11/17 06/11/17 06/11/17 06:10 06:10 06:10 WBC 3.7 L RBC 3.39 L Hgb 10.3 L Hct 32.2 L MCV 95.0 MCH 30.5 MCHC 32.1 RDW 19.4 H Plt Count 99 L MPV 8.8 Neutrophils % 63.3 Lymphocytes % 11.0 Monocytes % 14.4 H Eosinophils % 9.9 H Basophils % 1.4 Sodium 137 Potassium 5.3 H Chloride 100 Carbon Dioxide 23 Anion Gap 14 BUN 50 H Creatinine 5.8 H Creat Clearance w eGFR 9.80 POC Glucometer Random Glucose 182 H Calcium 8.9 Phosphorus 4.7 D Total Bilirubin 0.5 AST 28 D ALT 30 Alkaline Phosphatase 206 H Ammonia 98.99 H Creatine Kinase Troponin I Total Protein 6.7 Albumin 3.2 L Cholesterol 91 06/11/17 00:47 Creatine Kinase 97 Troponin I 0.07 H HOSPITAL COURSE: Date of Admission:06/10/17 Date of Discharge: 06/11/17 Minutes to complete discharge: 37 Discharge Summary Reason For Visit: ATYPICAL CHEST PAIN Current Active Problems Chest pain (Acute) Mastoiditis (Acute) Parotid gland enlargement (Acute) SVC syndrome (Acute) Swollen arm (Acute) BPH (benign prostatic hypertrophy) (Chronic) Chronic pain disorder (Chronic) DVT (deep venous thrombosis) (Chronic) Drug-seeking behavior (Chronic) Fluid overload (Chronic) Hematoma (Chronic) Hyperlipidemia (Chronic) Hypertension (Chronic) Noncompliance of patient with renal dialysis (Chronic) PAF (paroxysmal atrial fibrillation) (Chronic) Type 2 diabetes mellitus (Chronic) Hospital Course: Initial Hospital Course: Briefly, this 66 yo M with a PMHx of anemia, HTN, HLD, CVA, DVT, CAD s/p CAGB, pacemaker and stents, CHF, DM, ESRD (dialysis T,R,S and still makes urine), enlarged prostate and anxiety presented with lightheadedness, chest pain and SOB. He awoke with a generalized unspecified pain over his left chest and some "vibrations" around his AICD. He denies discharge of AICD. Subsequent Hospital Course/Progress Note/Discharge Summary by plan: Plan: 1. ESRD - HD today, resume regularly scheduled days - Son Billy will need to call to re activate medicare or arrange with transportation company to take pt to HD as pt non compliant as he says he has no transportation 2. Chest pain ACS vs musculoskeletal - Chest pain - Serial troponin flat x2 at 0.07 - ASA - Eliquis - Coreg 12.5mg BID 3. HTN - Stable following HD and meds, appears to be non compliant with meds - Continue home Iso MN - Hydralazine - Coreg 4. Systolic HF - Iso MN 5. Hepatic encephalopathy - Likely due to hepatic congestion from vol overload - Refused lacatulose 6. HLD - Lipitor 7. h/o CVA - Eliquis 8. DM II - Controlled sugars under 200 Dispo: - Home with above HD plan Condition: Stable - Instructions Diet, Activity, Other Instructions: Please return to the ED for any new, persistent, or worsening symptoms. Follow up with your PCP in 1 week Follow up with ambulette service or insurance to re sign Take medications as directed Continue regular dialysis days at [facility] Referrals: Yrn Torres MD [Primary Care Provider] - Disposition: HOME - Home Medications Comprehensive Discharge Medication List: Ambulatory Orders Apixaban [Eliquis -] 2.5 mg PO BID #60 tablet 12/07/16 Aspirin [ASA -] 81 mg PO DAILY #0 tab.chew 12/07/16 Carvedilol [Coreg -] 12.5 mg PO BID #60 tablet 12/07/16 Cyclobenzaprine HCl [Flexeril 10 mg] 10 mg PO Q8H PRN #12 tablet 02/12/17 Atorvastatin Ca [Lipitor] 20 mg PO HS #30 tablet 04/08/17 Gabapentin [Neurontin] 100 mg PO DAILY #30 capsule 04/08/17 Hydralazine HCl [Apresoline -] 50 mg PO BID #60 tablet 04/08/17 Isosorbide Mononitrate [Imdur -] 30 mg PO DAILY #30 tab.sr.24h 04/08/17 Sevelamer Carbonate [Renvela -] 800 mg PO TIDCM #90 tab 04/08/17 Tamsulosin HCl [Flomax -] 0.4 mg PO DAILY@0830 #30 capsule 04/08/17 Pantoprazole Sodium 40 mg PO DAILY 04/20/17 This patient is new to me today: Yes Date on this admission: 06/11/17 Emergency Visit: Yes ED Registration Date: 06/10/17 Care time: The patient presented to the Emergency Department on the above date and was hospitalized for further evaluation of their emergent condition. Critical Care patient: No - Discharge Referral Referred to [facility] Med P.C.: No
--- NOTE | 2017-06-11 15:11 | PN ---
Progress Note, Physician History of Present Illness: Pt seen and examined at bedside. He is awake and alert. He tolerated HD. He is eager to go home. - Current Medication List Current Medications: Active Medications Apixaban (Eliquis -) 2.5 mg PO BID [facility] Last Admin: 06/11/17 09:52 Dose: 2.5 mg Aspirin (Asa -) 81 mg PO DAILY [facility] Last Admin: 06/11/17 09:53 Dose: 81 mg Atorvastatin Calcium (Lipitor -) 20 mg PO HS [facility] Last Admin: 06/10/17 23:52 Dose: 20 mg Carvedilol (Coreg -) 12.5 mg PO BID [facility] Last Admin: 06/11/17 09:52 Dose: 12.5 mg Gabapentin (Neurontin -) 100 mg PO DAILY [facility] Last Admin: 06/11/17 09:53 Dose: 100 mg Hydralazine HCl (Apresoline -) 50 mg PO BID [facility] Last Admin: 06/11/17 09:52 Dose: 50 mg Insulin Aspart (Novolog Vial Sliding Scale -) 1 vial SQ ACHS [facility] PRN Reason: Protocol Last Admin: 06/11/17 14:40 Dose: 2 units Isosorbide Mononitrate (Imdur -) 30 mg PO DAILY [facility] Last Admin: 06/11/17 09:53 Dose: 30 mg Pantoprazole Sodium (Protonix -) 40 mg PO DAILY [facility] Last Admin: 06/11/17 09:52 Dose: 40 mg Sevelamer Carbonate (Renvela -) 800 mg PO TIDCM [facility] Last Admin: 06/11/17 14:41 Dose: 800 mg Tamsulosin HCl (Flomax -) 0.4 mg PO DAILY@0830 [facility] Last Admin: 06/11/17 07:50 Dose: 0.4 mg Tramadol HCl (Ultram -) 50 mg PO Q4H PRN PRN Reason: PAIN Last Admin: 06/11/17 09:51 Dose: 50 mg - Objective Vital Signs: Vital Signs Temperature 97.4 F L 06/11/17 14:06 Pulse Rate 61 06/11/17 14:06 Respiratory Rate 20 06/11/17 14:06 Blood Pressure 95/46 06/11/17 14:06 O2 Sat by Pulse Oximetry (%) 96 06/11/17 14:00 Constitutional: Yes: Calm Eyes: Yes: Conjunctiva Clear HENT: Yes: Atraumatic Cardiovascular: Yes: S1, S2 Respiratory: Yes: CTA Bilaterally Gastrointestinal: Yes: Soft Genitourinary: Yes: WNL Musculoskeletal: Yes: WNL Edema: No Neurological: Yes: Oriented Psychiatric: Yes: Oriented Labs: CBC, BMP 06/11/17 06:10 06/11/17 08:00 INR, PTT INR 1.08 (0.82-1.09) 06/10/17 13:40 Problem List - Problems (1) Hyperlipidemia Code(s): E78.5 - HYPERLIPIDEMIA, UNSPECIFIED Qualifiers: Qualified Code(s): E78.00 - Pure hypercholesterolemia, unspecified; E78.0 - Pure hypercholesterolemia (2) Hypertension Code(s): I10 - ESSENTIAL (PRIMARY) HYPERTENSION Qualifiers: Qualified Code(s): I10 - Essential (primary) hypertension (3) Noncompliance of patient with renal dialysis Code(s): Z91.15 - PATIENT'S NONCOMPLIANCE WITH RENAL DIALYSIS (4) End stage renal disease Code(s): N18.6 - END STAGE RENAL DISEASE Assessment/Plan Current Medications Generic Name Dose Route Start Last Admin Trade Name Freq PRN Reason Stop Dose Admin Apixaban 2.5 mg 06/10/17 22:00 06/11/17 09:52 Eliquis - PO 2.5 mg BID [facility] Administration Aspirin 81 mg 06/11/17 10:00 06/11/17 09:53 Asa - PO 81 mg DAILY [facility] Administration Atorvastatin Calcium 20 mg 06/10/17 22:00 06/10/17 23:52 Lipitor - PO 20 mg HS [facility] Administration Carvedilol 12.5 mg 06/10/17 22:00 06/11/17 09:52 Coreg - PO 12.5 mg BID [facility] Administration Gabapentin 100 mg 06/11/17 10:00 06/11/17 09:53 Neurontin - PO 100 mg DAILY [facility] Administration Hydralazine HCl 50 mg 06/10/17 22:00 06/11/17 09:52 Apresoline - PO 50 mg BID [facility] Administration Insulin Aspart 1 vial 06/10/17 22:00 06/11/17 14:40 Novolog Vial Sliding Scale - SQ 2 units ACHS [facility] Administration Protocol Isosorbide Mononitrate 30 mg 06/11/17 10:00 06/11/17 09:53 Imdur - PO 30 mg DAILY [facility] Administration Pantoprazole Sodium 40 mg 06/11/17 10:00 06/11/17 09:52 Protonix - PO 40 mg DAILY [facility] Administration Sevelamer Carbonate 800 mg 06/10/17 17:30 06/11/17 14:41 Renvela - PO 800 mg TIDCM [facility] Administration Tamsulosin HCl 0.4 mg 06/11/17 08:30 06/11/17 07:50 Flomax - PO 0.4 mg DAILY@0830 [facility] Administration Tramadol HCl 50 mg 06/11/17 09:21 06/11/17 09:51 Ultram - PO 50 mg Q4H PRN Administration PAIN Impression 1. ESRD 2. CAD 3. HTN 4. narcotic dependence 5. non compliance 6. pleural effusions 7. anemia 8. chest pain 9. DVT 10. hx GI bleed Plan - HD today - cont home meds - pt has HD set up as outpt - monitor blood pressure - discussed with medical team - will follow Dr Campos
[2017-06-11 15:26] VITALS: PULSE 60
[2017-06-11 15:27] VITALS: BP 119/55
== END 2017-06-11 15:28 | disposition home or self-care (01) ==
LOC: JER 09:34 → JERBED 17:13 → J4W 21:55
PROVIDERS: ADMIT Internal Medicine; ATTEND Nurse Practitioner Acute Care
PROC: 3E033NZ Introduction of Analgesics, Hypnotics, Sedatives into Peripheral Vein, Percutaneous Approach (ICD-10-PCS; principal; 2017-06-10)
PROC: 3E013VG Introduction of Insulin into Subcutaneous Tissue, Percutaneous Approach (ICD-10-PCS; 2017-06-10)
DX: R07.89 Other chest pain (principal); I12.0 Hypertensive chronic kidney disease with stage 5 chronic kidney disease or end stage renal disease; E11.22 Type 2 diabetes mellitus with diabetic chronic kidney disease; N18.6 End stage renal disease; Z99.2 Dependence on renal dialysis; I73.9 Peripheral vascular disease, unspecified; I48.0 Paroxysmal atrial fibrillation; I50.20 Unspecified systolic (congestive) heart failure; E78.5 Hyperlipidemia, unspecified; E87.70 Fluid overload, unspecified; I25.10 Atherosclerotic heart disease of native coronary artery without angina pectoris; F41.9 Anxiety disorder, unspecified; D64.9 Anemia, unspecified; Z95.5 Presence of coronary angioplasty implant and graft; Z86.73 Personal history of transient ischemic attack (TIA), and cerebral infarction without residual deficits; N40.0 Benign prostatic hyperplasia without lower urinary tract symptoms; Z79.82 Long term (current) use of aspirin; K72.90 Hepatic failure, unspecified without coma; Z95.1 Presence of aortocoronary bypass graft; Z95.810 Presence of automatic (implantable) cardiac defibrillator; Z91.15 Patient's noncompliance with renal dialysis; J90 Pleural effusion, not elsewhere classified; H70.009 Acute mastoiditis without complications, unspecified ear; K11.8 Other diseases of salivary glands; I87.1 Compression of vein; G89.29 Other chronic pain; I82.509 Chronic embolism and thrombosis of unspecified deep veins of unspecified lower extremity; Z76.5 Malingerer [conscious simulation]; R22.30 Localized swelling, mass and lump, unspecified upper limb; Z87.891 Personal history of nicotine dependence; Z79.4 Long term (current) use of insulin; Z79.01 Long term (current) use of anticoagulants
CPT/HCPCS: 36415; 70450-TC; 71020-TC; 80053; 82009; 82140; 82465; 83605; 83880; 84100; 84484; 85025; 85610; 85730; 86850; 86900; 86901; 93005; 93010; 99284-25; G0378

== ENCOUNTER 2017-06-17 23:20 | Emergency (ER) | payer BC, OTHER ==
[2017-06-18 00:02] VITALS: BMI 23.8
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
[2017-06-18] MEDS ORDERED: KETOROLAC TROMETHAMINE 60 MG/2 ML VIAL IM ONE (00:36)
--- NOTE | 2017-06-18 01:05 | PDOC ---
*Physical Exam - Vital Signs Last Vital Signs Temp Pulse Resp BP Pulse Ox 97.7 F 96 H 14 146/61 96 06/18/17 00:00 06/18/17 00:00 06/18/17 00:00 06/18/17 00:00 06/18/17 00:00 ED Treatment Course - LABORATORY CBC & Chemistry Diagram: 06/18/17 01:08 06/18/17 01:08 Medical Decision Making - Medical Decision Making 06/18/17 01:05 agree with care from HELEN Huynh *DC/Admit/Observation/Transfer Diagnosis at time of Disposition: Pain - Referrals Referrals: Yrn Torres MD [Primary Care Provider] -
[2017-06-18 01:20] LABS: EOSINOPHIL 7.3 % (0-4.5); MCH 30.8 pg (25.7-33.7); MCHC 32.3 g/dl (32.0-35.9); MEAN CELL VOLUME 95.2 fl (80-96); MEAN PLT VOLUME 8.8 fl (7.5-11.1); NEUTROPHILS 68.9 % (42.8-82.8); PLATELET COUNT 120 K/MM3 (134-434); RDW 18.9 % (11.9-15.9); WHITE BLOOD COUNT 4.1 K/mm3 (4.0-10.0)
[2017-06-18 01:44] LABS: ALBUMIN 3.7 g/dl (3.4-5.0); ANION GAP 9 (8-16); BILIRUBIN,TOTAL 0.4 mg/dL (0.2-1.0); CALCIUM 8.4 mg/dL (8.5-10.1); CO2 29 mmol/L (21-32); CREATININE 4.2 mg/dL (0.7-1.3); GLUCOSE,RANDOM 158 mg/dL (74-106); SGOT/AST 22 U/L (15-37); SGPT/ALT 24 U/L (12-78); TOT PROT 7.1 g/dl (6.4-8.2)
[2017-06-18 01:45] LABS: ALK PHOS 158 U/L (45-117); TROPONIN I 0.04 ng/ml (0.00-0.05)
[2017-06-18 06:14] VITALS: BP 141/72; PULSE 87; TEMP 98.1
--- NOTE | 2017-06-18 12:19 | EKG ---
Test Reason : Blood Pressure : / mmHG Vent. Rate : 060 BPM Atrial Rate : 060 BPM P-R Int : 000 ms QRS Dur : 178 ms QT Int : 520 ms P-R-T Axes : 000 -24 -24 degrees QTc Int : 520 ms AV dual-paced rhythm Biventricular pacemaker detected ABNORMAL ECG WHEN COMPARED WITH ECG OF 10-JUN-2017 10:06, VENT. RATE HAS DECREASED BY 14 BPM Confirmed by JULIA FELIPE MD ([id number]) on 06/18/2017 12:18:49 PM Referred By: Confirmed By:JULIA FELIPE MD
== END 2017-06-18 06:25 | disposition home or self-care (01) ==
LOC: JER 23:20
PROC: 3E0233Z Introduction of Anti-inflammatory into Muscle, Percutaneous Approach (ICD-10-PCS; principal; 2017-06-17)
DX: R52 Pain, unspecified (principal); I13.11 Hypertensive heart and chronic kidney disease without heart failure, with stage 5 chronic kidney disease, or end stage renal disease; E11.22 Type 2 diabetes mellitus with diabetic chronic kidney disease; E11.65 Type 2 diabetes mellitus with hyperglycemia; N18.6 End stage renal disease; Z99.2 Dependence on renal dialysis; I49.3 Ventricular premature depolarization; Z86.73 Personal history of transient ischemic attack (TIA), and cerebral infarction without residual deficits; Z95.1 Presence of aortocoronary bypass graft
CPT/HCPCS: 36415; 80053; 82553; 83735; 84484; 85025; 93005; 93010; 99283-25

== ENCOUNTER 2017-06-21 20:52 | Emergency (ER) | payer OTHER ==
[2017-06-21 21:00] VITALS: BP 144/74; PULSE 60; TEMP 97.8; BMI 22.8
[2017-06-21] MEDS ORDERED: morphine CARPU-JECT 2 MG/1 ML DISP.SYRIN SQ ONE (22:45)
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
== END 2017-06-22 00:01 | disposition home or self-care (01) ==
LOC: JER 20:52 → JERFT 20:52 → JER 06-22 00:01
PROC: 3E023NZ Introduction of Analgesics, Hypnotics, Sedatives into Muscle, Percutaneous Approach (ICD-10-PCS; principal; 2017-06-21)
DX: M79.605 Pain in left leg (principal); M79.604 Pain in right leg; I25.10 Atherosclerotic heart disease of native coronary artery without angina pectoris; I13.2 Hypertensive heart and chronic kidney disease with heart failure and with stage 5 chronic kidney disease, or end stage renal disease; N18.6 End stage renal disease; I50.9 Heart failure, unspecified; Z99.2 Dependence on renal dialysis; Z95.1 Presence of aortocoronary bypass graft; Z95.5 Presence of coronary angioplasty implant and graft; E11.9 Type 2 diabetes mellitus without complications; E78.00 Pure hypercholesterolemia, unspecified; Z86.73 Personal history of transient ischemic attack (TIA), and cerebral infarction without residual deficits; F41.9 Anxiety disorder, unspecified; Z95.0 Presence of cardiac pacemaker
CPT/HCPCS: 96372; 99281-25

== ENCOUNTER 2017-06-23 00:28 | Emergency (ER) | payer OTHER ==
[2017-06-23 00:42] VITALS: BP 148/66; PULSE 60; TEMP 98.2; BMI 25.6
[2017-06-23] MEDS ORDERED: ONDANSETRON 4 MG/2 ML VIAL IVPB ONE (01:35)
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
[2017-06-23 02:15] LABS: BASOPHIL 0.7 % (0-2.0); EOSINOPHIL 10.1 % (0-4.5); MCH 31.2 pg (25.7-33.7); MCHC 32.5 g/dl (32.0-35.9); MEAN CELL VOLUME 96.1 fl (80-96); NEUTROPHILS 62.5 % (42.8-82.8); RDW 19.7 % (11.9-15.9); WHITE BLOOD COUNT 4.1 K/mm3 (4.0-10.0)
[2017-06-23 02:37] LABS: ALBUMIN 3.3 g/dl (3.4-5.0); ALK PHOS 163 U/L (45-117); ANION GAP 13 (8-16); BILIRUBIN,TOTAL 0.4 mg/dL (0.2-1.0); CALCIUM 8.4 mg/dL (8.5-10.1); CO2 25 mmol/L (21-32); GLUCOSE,RANDOM 161 mg/dL (74-106); SGOT/AST 23 U/L (15-37); SGPT/ALT 18 U/L (12-78); TOT PROT 6.6 g/dl (6.4-8.2)
[2017-06-23] MEDS ORDERED: ONDANSETRON 4 MG TABLET PO ONE (02:48)
[2017-06-23] MEDS ORDERED: morphine CARPU-JECT 2 MG/1 ML DISP.SYRIN SQ ONE (02:55)
[2017-06-23 02:59] LABS: PLATELET ESTIMATE MOD DECREASED (NORMAL)
[2017-06-23 03:00] LABS: PLATELET COMMENT2 UNABLE TO ENUMERATE
[2017-06-23 03:17] LABS: ALBUMIN 3.2 g/dl (3.4-5.0); ALK PHOS 164 U/L (45-117); ANION GAP 9 (8-16); BILIRUBIN,TOTAL 0.3 mg/dL (0.2-1.0); CALCIUM 8.5 mg/dL (8.5-10.1); CO2 30 mmol/L (21-32); CREATININE 6.1 mg/dL (0.7-1.3); GLUCOSE,RANDOM 173 mg/dL (74-106); SGOT/AST 20 U/L (15-37); SGPT/ALT 17 U/L (12-78); TOT PROT 6.9 g/dl (6.4-8.2)
--- NOTE | 2017-06-23 10:39 | EKG ---
Test Reason : Blood Pressure : / mmHG Vent. Rate : 060 BPM Atrial Rate : 056 BPM P-R Int : 000 ms QRS Dur : 182 ms QT Int : 512 ms P-R-T Axes : 046 -20 -73 degrees QTc Int : 512 ms AV dual-paced rhythm Biventricular pacemaker detected ABNORMAL ECG WHEN COMPARED WITH ECG OF 18-JUN-2017 01:05, NO SIGNIFICANT CHANGE WAS FOUND CLINICAL CORRELATION IS RECOMMENDED Confirmed by TAMAR VIVEROS MD ([id number]) on 06/23/2017 10:39:24 AM Referred By: Confirmed By:TAMAR VIVEROS MD
== END 2017-06-23 04:28 | disposition home or self-care (01) ==
LOC: JER 00:28
PROC: 3E023NZ Introduction of Analgesics, Hypnotics, Sedatives into Muscle, Percutaneous Approach (ICD-10-PCS; principal; 2017-06-23)
DX: R11.2 Nausea with vomiting, unspecified (principal); M79.605 Pain in left leg; M79.604 Pain in right leg; I25.10 Atherosclerotic heart disease of native coronary artery without angina pectoris; I13.2 Hypertensive heart and chronic kidney disease with heart failure and with stage 5 chronic kidney disease, or end stage renal disease; N18.6 End stage renal disease; I50.9 Heart failure, unspecified; Z99.2 Dependence on renal dialysis; Z95.1 Presence of aortocoronary bypass graft; Z95.5 Presence of coronary angioplasty implant and graft; E11.9 Type 2 diabetes mellitus without complications; E78.00 Pure hypercholesterolemia, unspecified; N40.0 Benign prostatic hyperplasia without lower urinary tract symptoms; F41.9 Anxiety disorder, unspecified; Z86.73 Personal history of transient ischemic attack (TIA), and cerebral infarction without residual deficits; Z79.01 Long term (current) use of anticoagulants; Z95.0 Presence of cardiac pacemaker
CPT/HCPCS: 36415; 80053; 83690; 85025; 93005; 93010; 96372; 99281-25

== ENCOUNTER 2017-06-25 16:55 | Emergency (ER) | payer OTHER ==
[2017-06-25 17:28] VITALS: BP 120/59; PULSE 64; TEMP 97.1; BMI 22.8
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
[2017-06-25] MEDS ORDERED: ACETAMINOPHEN 500 MG TABLET (FP) PO ONE (18:02)
[2017-06-25 18:26] LABS: BASOPHIL 1.1 % (0-2.0); EOSINOPHIL 6.9 % (0-4.5); MCH 31.3 pg (25.7-33.7); MCHC 33.1 g/dl (32.0-35.9); MEAN CELL VOLUME 94.6 fl (80-96); MEAN PLT VOLUME 9.9 fl (7.5-11.1); NEUTROPHILS 66.7 % (42.8-82.8); PLATELET COUNT 140 K/MM3 (134-434); RDW 19.5 % (11.9-15.9); WHITE BLOOD COUNT 3.8 K/mm3 (4.0-10.0)
--- NOTE | 2017-06-26 09:44 | EKG ---
Test Reason : Blood Pressure : / mmHG Vent. Rate : 060 BPM Atrial Rate : 060 BPM P-R Int : 000 ms QRS Dur : 182 ms QT Int : 504 ms P-R-T Axes : 000 117 072 degrees QTc Int : 504 ms AV dual-paced rhythm Biventricular pacemaker detected ABNORMAL ECG WHEN COMPARED WITH ECG OF 23-JUN-2017 02:00, NO SIGNIFICANT CHANGE WAS FOUND Confirmed by GERBER ONEILL MD ([id number]) on 06/26/2017 9:43:38 AM Referred By: Confirmed By:GERBER ONEILL MD
== END 2017-06-25 21:43 | disposition left against medical advice (07) ==
LOC: JER 16:55
DX: R07.89 Other chest pain (principal); I25.810 Atherosclerosis of coronary artery bypass graft(s) without angina pectoris; I13.2 Hypertensive heart and chronic kidney disease with heart failure and with stage 5 chronic kidney disease, or end stage renal disease; N18.6 End stage renal disease; I50.9 Heart failure, unspecified; Z99.2 Dependence on renal dialysis; Z95.1 Presence of aortocoronary bypass graft; Z95.5 Presence of coronary angioplasty implant and graft; E11.9 Type 2 diabetes mellitus without complications; Z79.4 Long term (current) use of insulin; E78.00 Pure hypercholesterolemia, unspecified; N40.0 Benign prostatic hyperplasia without lower urinary tract symptoms; F41.9 Anxiety disorder, unspecified; I73.89 Other specified peripheral vascular diseases; Z95.0 Presence of cardiac pacemaker
CPT/HCPCS: 36415; 71010-TC; 85025; 93005; 93010; 99281-25; 99282-25

== ENCOUNTER 2017-06-27 07:15 | Emergency (ER) | payer OTHER ==
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
[2017-06-27 08:31] VITALS: TEMP 97.7; BMI 22.8
[2017-06-27 08:39] LABS: BASOPHIL 1.2 % (0-2.0); EOSINOPHIL 7.9 % (0-4.5); MCH 30.6 pg (25.7-33.7); MCHC 31.9 g/dl (32.0-35.9); MEAN PLT VOLUME 8.5 fl (7.5-11.1); NEUTROPHILS 66.9 % (42.8-82.8); PLATELET COUNT 127 K/MM3 (134-434); RDW 19.3 % (11.9-15.9); WHITE BLOOD COUNT 4.2 K/mm3 (4.0-10.0)
[2017-06-27 09:12] LABS: ALBUMIN 3.3 g/dl (3.4-5.0); ANION GAP 7 (8-16); BILIRUBIN,TOTAL 0.7 mg/dL (0.2-1.0); CALCIUM 8.4 mg/dL (8.5-10.1); CO2 24 mmol/L (21-32); CREATININE 5.6 mg/dL (0.7-1.3); GLUCOSE,RANDOM 128 mg/dL (74-106); SGOT/AST 21 U/L (15-37); SGPT/ALT 18 U/L (12-78); TOT PROT 6.9 g/dl (6.4-8.2)
[2017-06-27 09:13] LABS: ALK PHOS 152 U/L (45-117)
[2017-06-27 09:15] LABS: TROPONIN I 0.03 ng/ml (0.00-0.05)
[2017-06-27] MEDS ORDERED: ACETAMINOPHEN 500 MG TABLET (FP) PO ONE (10:25)
[2017-06-27 10:27] VITALS: BP 148/62; PULSE 59
--- NOTE | 2017-06-30 21:47 | EKG ---
Test Reason : Blood Pressure : / mmHG Vent. Rate : 060 BPM Atrial Rate : 107 BPM P-R Int : 000 ms QRS Dur : 178 ms QT Int : 490 ms P-R-T Axes : 000 138 004 degrees QTc Int : 490 ms AV dual-paced rhythm Biventricular pacemaker detected ABNORMAL ECG WHEN COMPARED WITH ECG OF 25-JUN-2017 18:40, NO SIGNIFICANT CHANGE WAS FOUND Confirmed by TAMAR VIVEROS MD ([id number]) on 06/30/2017 9:46:45 PM Referred By: Confirmed By:TAMAR VIVEROS MD
== END 2017-06-27 11:20 | disposition home or self-care (01) ==
LOC: JER 07:15
DX: R07.89 Other chest pain (principal); I25.10 Atherosclerotic heart disease of native coronary artery without angina pectoris; I13.2 Hypertensive heart and chronic kidney disease with heart failure and with stage 5 chronic kidney disease, or end stage renal disease; N18.6 End stage renal disease; I50.9 Heart failure, unspecified; Z99.2 Dependence on renal dialysis; Z95.1 Presence of aortocoronary bypass graft; Z95.5 Presence of coronary angioplasty implant and graft; Z95.0 Presence of cardiac pacemaker; E11.9 Type 2 diabetes mellitus without complications; Z86.73 Personal history of transient ischemic attack (TIA), and cerebral infarction without residual deficits; E78.00 Pure hypercholesterolemia, unspecified; F41.9 Anxiety disorder, unspecified
CPT/HCPCS: 36415; 71010-TC; 80053; 84484; 85025; 93005; 93010; 99283-25

== ENCOUNTER 2017-06-29 17:28 | Emergency (ER) | payer OTHER ==
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
[2017-06-29 17:53] VITALS: TEMP 97.9; BMI 22.8
--- NOTE | 2017-06-29 17:54 | PDOC ---
Attending Attestation - Resident Resident Name: Evita Goldsmith - ED Attending Attestation I have performed the following: I have examined & evaluated the patient, The case was reviewed & discussed with the resident, I agree w/resident's findings & plan, Exceptions are as noted - HPI HPI: 06/29/17 17:52 cHEST pAIN - Physicial Exam PE: 06/29/17 17:53 NAD, Normotensive, - Medical Decision Making 06/29/17 17:[address] Evita Goldsmith's Assesment and Plan
[2017-06-29] MEDS ORDERED: KETOROLAC TROMETHAMINE 15 MG/ML VIAL IVPUSH ONE (18:37)
[2017-06-29] MEDS ORDERED: ETOMIDATE 20 MG/10 ML AMPUL IVPUSH ONE (18:37)
[2017-06-29] MEDS ORDERED: ONDANSETRON 4 MG/2 ML VIAL IVPUSH ONE (18:37)
[2017-06-29] MEDS ORDERED: ACETAMINOPHEN 325 MG TABLET (FP) PO ONE (19:50)
[2017-06-29 20:25] VITALS: BP 140/70; PULSE 70
--- NOTE | 2017-06-30 21:34 | EKG ---
Test Reason : Blood Pressure : / mmHG Vent. Rate : 060 BPM Atrial Rate : 060 BPM P-R Int : 000 ms QRS Dur : 170 ms QT Int : 476 ms P-R-T Axes : 000 075 -04 degrees QTc Int : 476 ms AV dual-paced rhythm Biventricular pacemaker detected ABNORMAL ECG WHEN COMPARED WITH ECG OF 27-JUN-2017 07:22, NO SIGNIFICANT CHANGE WAS FOUND Confirmed by TAMAR VIVEROS MD ([id number]) on 06/30/2017 9:33:36 PM Referred By: Confirmed By:TAMAR VIVEROS MD
== END 2017-06-29 21:30 | disposition home or self-care (01) ==
LOC: JER 17:28
DX: M79.604 Pain in right leg (principal); I25.10 Atherosclerotic heart disease of native coronary artery without angina pectoris; I13.2 Hypertensive heart and chronic kidney disease with heart failure and with stage 5 chronic kidney disease, or end stage renal disease; N18.6 End stage renal disease; I50.9 Heart failure, unspecified; Z99.2 Dependence on renal dialysis; Z95.1 Presence of aortocoronary bypass graft; Z95.5 Presence of coronary angioplasty implant and graft; Z95.0 Presence of cardiac pacemaker; E11.9 Type 2 diabetes mellitus without complications; Z79.4 Long term (current) use of insulin; E78.00 Pure hypercholesterolemia, unspecified; F41.9 Anxiety disorder, unspecified
CPT/HCPCS: 93005; 93010; 99281-25

== ENCOUNTER 2017-07-03 20:47 | Inpatient (IN) | payer OTHER ==
[2017-07-03 20:58] VITALS: BMI 21.5
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
[2017-07-04] MEDS ORDERED: morphine CARPU-JECT 2 MG/1 ML DISP.SYRIN IVPUSH ONE (01:49)
[2017-07-04] MEDS ORDERED: ONDANSETRON 4 MG/2 ML VIAL IVPUSH ONE (02:45)
[2017-07-04 02:49] LABS: BASOPHIL 1.3 % (0-2.0); EOSINOPHIL 5.1 % (0-4.5); MCH 31.5 pg (25.7-33.7); MCHC 33.6 g/dl (32.0-35.9); MEAN CELL VOLUME 93.9 fl (80-96); MEAN PLT VOLUME 8.9 fl (7.5-11.1); NEUTROPHILS 74.5 % (42.8-82.8); PLATELET COUNT 107 K/MM3 (134-434); RDW 19.1 % (11.9-15.9); WHITE BLOOD COUNT 6.5 K/mm3 (4.0-10.0)
[2017-07-04 03:34] LABS: ALBUMIN 3.5 g/dl (3.4-5.0); ANION GAP 9 (8-16); BILIRUBIN,TOTAL 0.6 mg/dL (0.2-1.0); CALCIUM 8.6 mg/dL (8.5-10.1); CO2 26 mmol/L (21-32); CREATININE 5.2 mg/dL (0.7-1.3); GLUCOSE,RANDOM 111 mg/dL (74-106); SGOT/AST 30 U/L (15-37); SGPT/ALT 26 U/L (12-78)
[2017-07-04 03:36] LABS: ALK PHOS 160 U/L (45-117); TOT PROT 7.1 g/dl (6.4-8.2)
[2017-07-04 08:47] LABS: INR 1.2 (0.82-1.09); PROTHROMBIN TIME (PATIENT) 13.2 SEC (9.98-11.88)
[2017-07-04 08:49] LABS: ACTIVATED PTT 28.8 SECONDS (26.9-34.4)
--- NOTE | 2017-07-04 09:28 | PDOC ---
*Physical Exam - Vital Signs Last Vital Signs Temp Pulse Resp BP Pulse Ox 98.1 F 89 18 131/78 98 07/04/17 05:30 07/04/17 05:30 07/04/17 05:30 07/04/17 05:30 07/04/17 05:30 - Physical Exam General Appearance: Yes: Nourished, Appropriately Dressed Neck: positive: Trachea midline Respiratory/Chest: positive: Lungs Clear, Normal Breath Sounds Cardiovascular: positive: Regular Rhythm, Regular Rate, S1, S2. negative: Edema Gastrointestinal/Abdominal: positive: Normal Bowel Sounds, Flat, Soft Extremity: positive: Normal Capillary Refill, Normal Inspection Integumentary: positive: Normal Color, Dry, Warm Neurologic: positive: Fully Oriented, Alert, Normal Mood/Affect Heart Score/ECG Review #1 General ECG Interpretation: Normal Rate (61), Normal Intervals, No acute ischemic changes Compared to previous ECG there are: Other (paced rhythm, left axis. TWI III, AVF ) ED Treatment Course - LABORATORY CBC & Chemistry Diagram: 07/04/17 10:18 07/04/17 02:30 - ADDITIONAL ORDERS Additional order review: Laboratory Results 07/04/17 07/04/17 07/04/17 08:15 08:15 02:30 PT with INR 13.20 H INR 1.20 H PTT (Actin FS) 28.8 Sodium 138 Potassium 4.1 Chloride 103 Carbon Dioxide 26 Anion Gap 9 BUN 37 H Creatinine 5.2 H Creat Clearance w eGFR 11.12 Random Glucose 111 H Calcium 8.6 Total Bilirubin 0.6 AST 30 D ALT 26 D Alkaline Phosphatase 160 H Total Protein 7.1 Albumin 3.5 Blood Type O POSITIVE Antibody Screen Negative 07/03/17 22:45 Group A Strep Rapid Antigen - Final Throat 07/04/17 02:30 RBC 3.73 L MCV 93.9 MCHC 33.6 RDW 19.1 H MPV 8.9 Neutrophils % 74.5 Lymphocytes % 7.0 L D Monocytes % 12.1 H Eosinophils % 5.1 H Basophils % 1.3 - Medications Given in the ED: ED Medications Discontinued Medications Generic Name Dose Route Start Last Admin Trade Name Freq PRN Reason Stop Dose Admin Diphenhydramine HCl 25 mg 07/04/17 01:49 07/04/17 02:45 Benadryl Injection - IVPB 07/04/17 01:50 25 mg ONCE ONE Administration Morphine Sulfate 2 mg 07/04/17 01:49 07/04/17 02:45 Morphine Injection - IVPUSH 07/04/17 01:50 2 mg ONCE ONE Administration Ondansetron HCl 4 mg 07/04/17 02:45 07/04/17 02:45 Zofran Injection IVPUSH 07/04/17 02:46 4 mg NOW ONE Administration Medical Decision Making - Medical Decision Making 07/04/17 09:20 66 yo M h/o DM HTN HLD CVA CAD ( cabg and stents ) prior dvt on asa and eloquis , ESRD , chf anemiamultiple med problems with several ed visits for chest pain requesting pain medication, here last pm for c/o lateral neck pain. pt was signed out to me by prior shift Dr Soria at 7 am, awaiting ct soft tissue neck to evaluate airway narrowing. while in ED, pt had large bloody bowel movement, bright red blood. no h/o prior gi bleed. paged dr. monreal, for admission gi bleed. awaiting callback. 07/04/17 09:40 ct neck unremarkable. compared to xray neck. will admit for gi bleed, seen here in ED. dw dr monreal, told to admit to hospitalist. pt states was dialyzed yesterday. 07/04/17 12:58 d/w dr hendrix , covering for dr luis for gi consult *DC/Admit/Observation/Transfer Diagnosis at time of Disposition: Sore throat (viral), End stage chronic kidney disease, GI bleed URI (upper respiratory infection) Qualifiers: URI type: unspecified URI Qualified Code(s): J06.9 - Acute upper respiratory infection, unspecified Chronic pain Qualifiers: Chronic pain type: chronic pain syndrome Qualified Code(s): G89.4 - Chronic pain syndrome - Discharge Dispostion Admit: Yes - Referrals - Patient Instructions - Post Discharge Activity
[2017-07-04 10:53] LABS: MCH 30.9 pg (25.7-33.7); MCHC 32.4 g/dl (32.0-35.9); MEAN CELL VOLUME 95.4 fl (80-96); MEAN PLT VOLUME 9.2 fl (7.5-11.1); PLATELET COUNT 104 K/MM3 (134-434); RDW 19.3 % (11.9-15.9); WHITE BLOOD COUNT 6.3 K/mm3 (4.0-10.0)
--- NOTE | 2017-07-04 11:44 | CON.NEP ---
Consult Consult Specialty:: nephrology Reason for Consultation:: esrd - History of Present Illness Chief Complaint: pain, melena History of Present Illness: one of many admissions for pain. But now also has BRBPR. 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: CVA Cardio/Vascular: Yes: AFIB (paroxysmal), CAD (CABG, PCI/KAT), CHF, Deep Vein Thrombosis, HTN, Hyperlipdemia Renal/: Yes: Renal Failure, Hemodialysis Psych: Yes: Anxiety Endocrine: Yes: Diabetes Mellitus - Past Surgical History Past Surgical History: Yes: AICD, Amputation (right 3rd finger), CABG (3v CABG and mitral ring 2009 (GUADALUPE->LAD, SVG->LPL, SVG->D1 jump D2.), Stent - Alcohol/Substance Use Hx Alcohol Use: No History of Substance Use: reports: Prescription - Smoking History Smoking history: Never smoked Have you smoked in the past 12 months: No Aproximately how many cigarettes per day: 0 If you are a former smoker, when did you quit?: 2014 - Social History Usual Living Arrangement: With Spouse ADL: Independent History of Recent Travel: No Home Medications - Allergies Allergies/Adverse Reactions: Allergies Allergy/AdvReac Type Severity Reaction Status Date / Time No Known Drug Allergies Allergy Verified 06/27/17 07:47 - Home Medications Home Medications: Ambulatory Orders Apixaban [Eliquis -] 2.5 mg PO BID #60 tablet 12/07/16 Aspirin [ASA -] 81 mg PO DAILY #0 tab.chew 12/07/16 Carvedilol [Coreg -] 12.5 mg PO BID #60 tablet 12/07/16 Cyclobenzaprine HCl [Flexeril 10 mg] 10 mg PO Q8H PRN #12 tablet 02/12/17 Atorvastatin Ca [Lipitor] 20 mg PO HS #30 tablet 04/08/17 Gabapentin [Neurontin] 100 mg PO DAILY #30 capsule 04/08/17 Hydralazine HCl [Apresoline -] 50 mg PO BID #60 tablet 04/08/17 Isosorbide Mononitrate [Imdur -] 30 mg PO DAILY #30 tab.sr.24h 04/08/17 Sevelamer Carbonate [Renvela -] 800 mg PO TIDCM #90 tab 04/08/17 Tamsulosin HCl [Flomax -] 0.4 mg PO DAILY@0830 #30 capsule 04/08/17 Pantoprazole Sodium 40 mg PO DAILY 04/20/17 Family Disease History - Family Disease History Family Disease History: Diabetes: Brother, Heart Disease: Brother, Other: Father (Stroke) Review of Systems - Review of Systems Constitutional: reports: Weakness Eyes: reports: No Symptoms HENT: reports: No Symptoms Neck: reports: Pain on Movement, Stiffness Cardiovascular: reports: Chest Pain, Shortness of Breath Respiratory: reports: SOB Gastrointestinal: reports: Abdominal Pain Genitourinary: reports: No Symptoms Integumentary: reports: No Symptoms Neurological: reports: No Symptoms Endocrine: reports: No Symptoms Hematology/Lymphatic: reports: No Symptoms Psychiatric: reports: Depression Nephrology Consult - Height Height: 5 ft 2 in - Weight Weight: 118 lb - BMI Body Mass Index (BMI): 21.5 - Lab Results CBC,BMP: Laboratory Last Values WBC 6.3 K/mm3 (4.0-10.0) 07/04/17 10:18 RBC 3.01 M/mm3 (4.00-5.60) L 07/04/17 10:18 Hgb 9.3 GM/dL (11.7-16.9) L D 07/04/17 10:18 Hct 28.7 % (35.4-49) L D 07/04/17 10:18 MCV 95.4 fl (80-96) 07/04/17 10:18 MCH 30.9 pg (25.7-33.7) 07/04/17 10:18 MCHC 32.4 g/dl (32.0-35.9) 07/04/17 10:18 RDW 19.3 % (11.9-15.9) H 07/04/17 10:18 Plt Count 104 K/MM3 (134-434) L 07/04/17 10:18 MPV 9.2 fl (7.5-11.1) 07/04/17 10:18 Neutrophils % No Result Required. 07/04/17 10:18 Lymphocytes % No Result Required. 07/04/17 10:18 Monocytes % 12.1 % (3.8-10.2) H 07/04/17 02:30 Eosinophils % 5.1 % (0-4.5) H 07/04/17 02:30 Basophils % 1.3 % (0-2.0) 07/04/17 02:30 PT with INR 13.20 SEC (9.98-11.88) H 07/04/17 08:15 INR 1.20 (0.82-1.09) H 07/04/17 08:15 PTT (Actin FS) 28.8 SECONDS (26.9-34.4) 07/04/17 08:15 Sodium 138 mmol/L (136-145) 07/04/17 02:30 Potassium 4.1 mmol/L (3.5-5.1) 07/04/17 02:30 Chloride 103 mmol/L (98-107) 07/04/17 02:30 Carbon Dioxide 26 mmol/L (21-32) 07/04/17 02:30 Anion Gap 9 (8-16) 07/04/17 02:30 BUN 37 mg/dL (7-18) H 07/04/17 02:30 Creatinine 5.2 mg/dL (0.7-1.3) H 07/04/17 02:30 Creat Clearance w eGFR 11.12 (>60) 07/04/17 02:30 Random Glucose 111 mg/dL (74-106) H 07/04/17 02:30 Calcium 8.6 mg/dL (8.5-10.1) 07/04/17 02:30 Total Bilirubin 0.6 mg/dL (0.2-1.0) 07/04/17 02:30 AST 30 U/L (15-37) D 07/04/17 02:30 ALT 26 U/L (12-78) D 07/04/17 02:30 Alkaline Phosphatase 160 U/L (45-117) H 07/04/17 02:30 Total Protein 7.1 g/dl (6.4-8.2) 07/04/17 02:30 Albumin 3.5 g/dl (3.4-5.0) 07/04/17 02:30 Blood Type O POSITIVE 07/04/17 08:15 Antibody Screen Negative 07/04/17 08:15 Anion Gap: Anion Gap Anion Gap 9 (8-16) 07/04/17 02:30 - Physical Examination Vital Signs: Vital Signs Temperature 97.8 F 07/04/17 09:28 Pulse Rate 61 07/04/17 09:28 Respiratory Rate 18 07/04/17 09:28 Blood Pressure 140/58 07/04/17 09:28 O2 Sat by Pulse Oximetry (%) 98 07/04/17 09:28 Constitutional: Yes: No Distress Eyes: Yes: Conjunctiva Clear HENT: Yes: Atraumatic, Normocephalic Neck: Yes: Supple, Trachea Midline Cardiovascular: Yes: Regular Rate and Rhythm Respiratory: Yes: Regular, CTA Bilaterally Gastrointestinal: Yes: Normal Bowel Sounds, Soft Renal/: Yes: Anuria Access for Hemodialysis: Permacath Musculoskeletal: Yes: Joint Stiffness Extremities: Yes: Amputation Edema: No Integumentary: Yes: WNL Wound/Incision: Yes: Clean/Dry, Well Approximated Neurological: Yes: WNL, Alert, Oriented Psychiatric: Yes: Alert, Oriented Assessment/Plan IMPRESSION ESRD cardiomyopathy htn noncompliance Now with GI bleed PLAN admit monitor dc anticoagulation transfuse as necesasary will dialyze on Thursday. Or sooner if necessary GI eval, PPI MV
[2017-07-04 13:46] LABS: BASOPHIL 1.4 % (0-2.0); EOSINOPHIL 6.3 % (0-4.5); MCH 30.9 pg (25.7-33.7); MCHC 32.5 g/dl (32.0-35.9); MEAN CELL VOLUME 95.3 fl (80-96); NEUTROPHILS 67.5 % (42.8-82.8); PLATELET COUNT 110 K/MM3 (134-434); RDW 19.4 % (11.9-15.9)
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
--- NOTE | 2017-07-04 14:15 | HP ---
CHIEF COMPLAINT: L neck pain / bloody BM PCP: Dr. Torres HISTORY OF PRESENT ILLNESS: 66 y/o M w/PMH of anemia, HTN, HLD, CVA, DVT, CAD s/p CAGB, pacemaker and stents , CHF, DM, ESRD (on HD TTS), BPH and anxiety presents to the ER w/ c/o of L neck pain. Pain had been present for 3 days. Pt was found to have a nodule in the area and given morphine for pain and benadryl. Pt was found to have a bloody BM in ER. Pt reports that he has had 3 bloody BMs since coming to the ER and had 2 episodes of green vomitus before coming to the ER. He also c/o of abdominal pain for the last 3 days located in the upper abdominal regions with no radiation which comes and goes and is rated at a 9/10 at its worst. He denies any light-headedness, dizziness, weakness, SOB, fevers, chills. He states he has been compliant with his meds and has not taken any recent new meds prescription or OTC. He denies any trauma to the area, any recent alcoholic drinks, any smoking, or drug use, or any change in diet. He also c/o chest pain and palpitations which he states are his usual chest pains and palpitations and are not new. Last BM was this morning and since then pt has not had any bowel movements. Pt does not answer all questions with appropriate responses and further history was difficult to obtain. Pt states he was last dialyzed yesterday. ER course was notable for: (1) CXR, Neck XR, Neck CT, EKG (2) morphine, benadryl (3) PAST MEDICAL HISTORY:HTN, HLD, CVA, DVT, CAD s/p CAGB, pacemaker and stents, CHF , DM, ESRD (on HD TTS), enlarged prostate and anxiety PAST SURGICAL HISTORY: Pacemaker placement, coronary stents, CABG, 3rd digit amputation on R hand Social History: Smoking: quit 2013 Alcohol: denies recent use. "haven't drank in years" Drugs: denies Family History: DM in parents Allergies No Known Drug Allergies Allergy (Verified 06/27/17 07:47) HOME MEDICATIONS: Home Medications Medication Instructions Recorded Apixaban [Eliquis -] 2.5 mg PO BID #60 tablet 12/07/16 Aspirin [ASA -] 81 mg PO DAILY #0 tab.chew 12/07/16 Carvedilol [Coreg -] 12.5 mg PO BID #60 tablet 12/07/16 Cyclobenzaprine HCl [Flexeril 10 10 mg PO Q8H PRN #12 tablet 02/12/17 mg] Atorvastatin Ca [Lipitor] 20 mg PO HS #30 tablet 04/08/17 Gabapentin [Neurontin] 100 mg PO DAILY #30 capsule 04/08/17 Hydralazine HCl [Apresoline -] 50 mg PO BID #60 tablet 04/08/17 Isosorbide Mononitrate [Imdur -] 30 mg PO DAILY #30 tab.sr.24h 04/08/17 Sevelamer Carbonate [Renvela -] 800 mg PO TIDCM #90 tab 04/08/17 Tamsulosin HCl [Flomax -] 0.4 mg PO DAILY@0830 #30 capsule 04/08/17 Pantoprazole Sodium 40 mg PO DAILY 04/20/17 REVIEW OF SYSTEMS CONSTITUTIONAL: Absent: fever, chills, generalized weakness CARDIOVASCULAR: +chest pain, palpitations (states both are his usual chest pain and palpitations) Absent: syncope, lightheadedness, peripheral edema RESPIRATORY: Absent: shortness of breath GASTROINTESTINAL: +abd pain, vomiting, hematochezia Absent: abdominal distension, constipation, melena GENITOURINARY: Absent: dysuria NEUROLOGIC: Absent: dizziness, seizure, mental status changes, bladder or bowel incontinence PHYSICAL EXAMINATION Vital Signs - 24 hr 07/04/17 13:00 Temperature 98.9 F Pulse Rate [ 61 Left Apical] Respiratory 20 Rate Blood Pressure 157/70 [Right Arm] O2 Sat by Pulse 98 Oximetry (%) GENERAL: Pt is sleepy but easily arousable. Answering some questions appropriately but not all questions answered appropriately. EYES: extraocular movements intact, sclera anicteric, conjunctiva clear. EARS, NOSE, THROAT: Ears normal, nares patent. Moist mucous membranes. NECK: +L superficial cervical lymphadenopathy. L parotiditis, non-tender. LUNGS: Breath sounds equal, clear to auscultation bilaterally. No wheezes, and no crackles. No accessory muscle use. HEART: Regular rate and rhythm, normal S1 and S2. Systolic murmur at pulmonic and tricuspid regions. R chest dialysis catheter in place. ABDOMEN: Soft, nontender, not distended, normoactive bowel sounds, no guarding, no rebound, no masses. No hepatomegaly or splenomegaly. RLQ with hard, nontender mass. LOWER EXTREMITIES: 2+ pulses, warm, well-perfused. No calf tenderness. No peripheral edema. NEUROLOGICAL: Normal speech. Gait not observed. PSYCHIATRIC: Somewhat cooperative. SKIN: Warm, dry CBCD WBC 6.0 K/mm3 (4.0-10.0) 07/04/17 13:25 RBC 3.11 M/mm3 (4.00-5.60) L 07/04/17 13:25 Hgb 9.6 GM/dL (11.7-16.9) L 07/04/17 13:25 Hct 29.6 % (35.4-49) L 07/04/17 13:25 MCV 95.3 fl (80-96) 07/04/17 13:25 MCHC 32.5 g/dl (32.0-35.9) 07/04/17 13:25 RDW 19.4 % (11.9-15.9) H 07/04/17 13:25 Plt Count 110 K/MM3 (134-434) L 07/04/17 13:25 MPV 9.0 fl (7.5-11.1) 07/04/17 13:25 CMP Sodium 138 mmol/L (136-145) 07/04/17 02:30 Potassium 4.1 mmol/L (3.5-5.1) 07/04/17 02:30 Chloride 103 mmol/L (98-107) 07/04/17 02:30 Carbon Dioxide 26 mmol/L (21-32) 07/04/17 02:30 Anion Gap 9 (8-16) 07/04/17 02:30 BUN 37 mg/dL (7-18) H 07/04/17 02:30 Creatinine 5.2 mg/dL (0.7-1.3) H 07/04/17 02:30 Creat Clearance w eGFR 11.12 (>60) 07/04/17 02:30 Random Glucose 111 mg/dL (74-106) H 07/04/17 02:30 Calcium 8.6 mg/dL (8.5-10.1) 07/04/17 02:30 Total Bilirubin 0.6 mg/dL (0.2-1.0) 07/04/17 02:30 AST 30 U/L (15-37) D 07/04/17 02:30 ALT 26 U/L (12-78) D 07/04/17 02:30 Alkaline Phosphatase 160 U/L (45-117) H 07/04/17 02:30 Total Protein 7.1 g/dl (6.4-8.2) 07/04/17 02:30 Albumin 3.5 g/dl (3.4-5.0) 07/04/17 02:30 Imaging: CXR: Since the prior study of 06/27/2017, again is the prominent mediastinum with sternal sutures, clips , valve replacement, pacemaker and right line. There are congestive changes. There are right arm clips. Follow-up recommended Impression: No significant change since prior study Neck XR:AP and lateral views reveal narrowing of the airway with degenerative changes and forward subluxation of C4 on C5. There is a pacemaker, sternal sutures and clips and right subclavian line. There is soft tissue prominence. Airway appears more narrowed than on 08/27/2016. Correlation recommended. Correlation with CT suggested. Neck CT w/o Contrast:IMPRESSION: 1. Limited soft tissue neck CT without IV contrast. No definite, obvious drainable collection in the deep spaces of the neck. 2. Interval decreased size of the left parotid gland. Nonspecific fat stranding/ edema in the soft tissues overlying the left parotid gland and left parotid duct may be secondary to evolving parotiditis. Please correlate clinically. No evidence of sialolith in the parotid glands, submandibular glands or along the course of the parotid and submandibular duct. 3. Nonspecific edema in the soft tissues overlying the posterior upper back and left shoulder. Please correlate clinically for etiology. 4. Incompletely imaged, likely loculated, small left pleural effusion along the left upper lobe unchanged. Please correlate with dedicated imaging of the chest. 5. Chronic right occipital and right cerebellar infarcts, unchanged. EKG: Paced rhythm @ 61 bpm. QTc 473 ms ASSESSMENT/PLAN: 66 y/o M w/PMH of anemia, HTN, HLD, CVA, DVT, CAD s/p CAGB, pacemaker and stents , CHF, DM, ESRD (on HD TTS), BPH and anxiety admitted for GI bleed. 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 -parotiditis as seen on CT -L superficial cervical lymphadenopathy -Pt treated with abx in past, will have ID evaluate for necessity of abx at this time -ESRD -on HD TTS; monitor Cr -nephrology on board, dialyze per nephro recommendations -Chronic systolic CHF -c/w carvedilol 12.5 mg po qd -HTN -c/w carvedilol, HZN, imdur -CAD -c/w lipitor 20 mg po qhs -hold asa -DM -ISS, BGMs -DVT ppx -SCDs, no AC due to active bleeding -FEN -No fluids, pt to receive platelets and FFP, has hx of sCHF -monitor lytes -NPO -Dispo: -Admit to med/surg Visit type - Emergency Visit Emergency Visit: Yes ED Registration Date: 07/04/17 Care time: The patient presented to the Emergency Department on the above date and was hospitalized for further evaluation of their emergent condition. - New Patient This patient is new to me today: Yes Date on this admission: 07/04/17 - Critical Care Critical Care patient: No
[2017-07-04 15:29] LABS: TOTAL CELLS COUNTED 100
--- NOTE | 2017-07-04 15:39 | PN ---
Teaching Attending Note Name of Resident: Ursula Lewis ATTENDING PHYSICIAN STATEMENT I saw and evaluated the patient. I reviewed the resident's note and discussed the case with the resident. I agree with the resident's findings and plan as documented. SUBJECTIVE: CC: Pain HPI: pt is a difficult historian and refused to give any history except for pain in L neck , and wanting pain meds. from records: he presneted to ER with neck pain, and while in ER he had a big BM with bright red blood per rectum. he denied any vomiting but admitted to Dr. Gonzalez that he had brown vomit . he also admitted to having recurrent bleeding per rectum x [address] scan in ER was notable for L parotid gland enlargement and stranding , but size has decreased compared to previous imaging OBJECTIVE: NAD, sleeping comfortably when entered the room, arousable , but falls asleep. no facial droop. Neck with enlarged non tender L parotid gland. MMM CV: RRR, 3/6 Dm at [facility], and 3/6 SM at [facility] pt declined rest of the exam including rectal exam. ASSESSMENT AND PLAN: 66 Y/o unfortunate man with h/o ESRD on HD (,,Thu), CHF, CABG, PPM, DM, Right 3rd digit amputation, CAD s/p CABG and stents who presented to ER with pain in L neck and had a rectal bleed while in ER 1- Rectal bleed : source could be lower GI bleed especially with bright red blood or an upper GI bleed with rapid transit expecially he Has a history of gastric ulcer and never followed up. unfortunately, refused rectal exam , but per Dr. Gonzalez's exam there was maroon blood . - Start PPI gtt - Give platlet transfusion ( on asa , low plt , dysfunctional plt due to uremia ) - Hold Eliquis and asa . - Continued AC might not be a good idea for him due to recurrent GI bleed . will d/w him when stable - Possible EGD on Thursday or earlier if rebleeds . - if re-bleeds can give FFPs. unfortunately , there is no reversal for eliquis - follow HB q 6 hrs - transfuse if needed , will have higher threshold if actively bleeding ( already dropped 2.5 g) - CT of abd /pelvis w/o contrast 2- L neck pain. was recently treated for parotitis with ABx . also was recently treated for transient staph bacteremia . Not clear if he continued the course of ABx. CT scan showed decreased size of parotid gland but still with stranding. gland is not tender though. - I am not sure of active infection - will hold off Abx now and ask ID to evaluate. 3- ESRD: seen by renal . HD tomorrow - Cont sevelamer 4- h/o CHF:no signs of fluid overload - cont coreg - cont imdur and hydralazine - volume management with HD 5- H/o DM: was not dc on any DM meds. Not clear what he takes. - will confirm with him. 6- pain: will use tylenol only. Avoid narcotics. Dispo : [facility]
[2017-07-04] MEDS ORDERED: ACETAMINOPHEN 1000 MG/100 ML VIAL (NON FORMULARY) IVPB PRN (15:41)
--- NOTE | 2017-07-04 15:41 | HP ---
CHIEF COMPLAINT: Neck pain and bleeding per rectum PCP: HISTORY OF PRESENT ILLNESS: The patient is a poor historian. A 66 year old Male with PMHx significant for DM, HTN, HLD, CVA, CAD, ESRD, CHF, previous DVT, who frequents the hospital for pain medication, presented yesterday for a pain in his right neck and was observed to have passed significant amounts of bright red blood per rectum. The neck pain is said to be sharp and intermittent, on the R side, 9/10 and non- radiating. No known aggravating factors but said to be relieved by morphine. No difficulty in moving the neck, no history of trauma. While he was at the ED, patient was noted to have bright red blood per rectum. He asserts to have had 3 episodes of rectal bleed yesterday. Denies vomiting. Patient has not passed stool today and there was no history of constipation/ diarrhea prior to onset of the bleed. The patient is on apaxiban and ASA and was noted in the past to have ulcers that bled. There is no history of bleeding from any other orifice. He denies dizziness/SOB/cough/fevers. No history of jaundice. Patient denies alcohol ingestion. Today his H and H was noticed to have dropped from 11.8 to 9.3. ER course was notable for: (1)CT neck (2)Xray of neck (3)CBC, CMP- Recent Travel: None PAST MEDICAL HISTORY: DM HTN HLD CVA CAD DVT ESRD CHF PAST SURGICAL HISTORY: Social History: Smoking:Quit 2013 Alcohol:Denies Drugs: Family History: DM, brother. Heart disease- brother, Stroke- father Allergies No Known Drug Allergies Allergy (Verified 06/27/17 07:47) HOME MEDICATIONS: Home Medications Medication Instructions Recorded Apixaban [Eliquis -] 2.5 mg PO BID #60 tablet 12/07/16 Aspirin [ASA -] 81 mg PO DAILY #0 tab.chew 12/07/16 Carvedilol [Coreg -] 12.5 mg PO BID #60 tablet 12/07/16 Cyclobenzaprine HCl [Flexeril 10 10 mg PO Q8H PRN #12 tablet 02/12/17 mg] Atorvastatin Ca [Lipitor] 20 mg PO HS #30 tablet 04/08/17 Gabapentin [Neurontin] 100 mg PO DAILY #30 capsule 04/08/17 Hydralazine HCl [Apresoline -] 50 mg PO BID #60 tablet 04/08/17 Isosorbide Mononitrate [Imdur -] 30 mg PO DAILY #30 tab.sr.24h 04/08/17 Sevelamer Carbonate [Renvela -] 800 mg PO TIDCM #90 tab 04/08/17 Tamsulosin HCl [Flomax -] 0.4 mg PO DAILY@0830 #30 capsule 04/08/17 Pantoprazole Sodium 40 mg PO DAILY 04/20/17 REVIEW OF SYSTEMS CONSTITUTIONAL: Absent: fever, chills, diaphoresis, generalized weakness, malaise, loss of appetite, weight change HEENT: Absent: rhinorrhea, nasal congestion, throat pain, throat swelling, difficulty swallowing, mouth swelling, ear pain, eye pain, visual changes. CARDIOVASCULAR: Absent: chest pain, syncope, palpitations, irregular heart rate, lightheadedness , peripheral edema RESPIRATORY: Absent: cough, shortness of breath, dyspnea with exertion, orthopnea, wheezing, stridor, hemoptysis GASTROINTESTINAL: Absent: abdominal pain, abdominal distension, nausea, vomiting, diarrhea, constipation, melena, hematochezia+ GENITOURINARY: Absent: dysuria, frequency, urgency, hesitancy, hematuria, flank pain, genital pain MUSCULOSKELETAL: Absent: myalgia, arthralgia, joint swelling, back pain, neck pain+ SKIN: Absent: rash, itching, pallor HEMATOLOGIC/IMMUNOLOGIC: Absent: easy bleeding, easy bruising, lymphadenopathy, frequent infections ENDOCRINE: Absent: unexplained weight gain, unexplained weight loss, heat intolerance, cold intolerance NEUROLOGIC: Absent: headache, focal weakness or paresthesias, dizziness, unsteady gait, seizure, mental status changes, bladder or bowel incontinence PSYCHIATRIC: Absent: anxiety, depression, suicidal or homicidal ideation, hallucinations. PHYSICAL EXAMINATION Vital Signs - 24 hr 07/04/17 13:00 Temperature 98.9 F Pulse Rate [ 61 Left Apical] Respiratory 20 Rate Blood Pressure 157/70 [Right Arm] O2 Sat by Pulse 98 Oximetry (%) GENERAL: drowsy, and oriented, in no acute respiratory distress. HEAD: Normal with no signs of trauma. Palpable occipital node on L. EYES: Pupils equal, about 1mm, and reactive to light, extraocular movements intact, sclera anicteric, conjunctiva clear, not pale. EARS, NOSE, THROAT: Ears normal, nares patent, oropharynx clear without exudates. Moist mucous membranes.Missing teeth. Parotid fullness more on the L, not warm, not tender. NECK: Trachea central. No obvious swelling. Normal range of motion, supple without lymphadenopathy, JVD, or masses. Thyroid gland not palpable. LUNGS: Breath sounds equal, clear to auscultation bilaterally. No wheezes, and no crackles. No accessory muscle use. HEART: Regular rate and rhythm, normal S1 and S2 without murmur, rub or gallop. ABDOMEN: Soft, nontender, not distended, normoactive bowel sounds, no guarding, no rebound, no masses. No hepatomegaly or splenomegaly. firm circular 2mm palpable nodes in R inguinal area. GELACIO: Maroon colored stools. No karma bleeding seen MUSCULOSKELETAL: Normal range of motion at all joints. No bony deformities or tenderness. No CVA tenderness. UPPER EXTREMITIES: Amputated R middle finger. 2+ pulses, warm, well-perfused. No cyanosis. No clubbing. No peripheral edema. LOWER EXTREMITIES: 2+ pulses, warm, well-perfused. No calf tenderness. No peripheral edema. NEUROLOGICAL: Drowsy. Normal speech. gait not observed. PSYCHIATRIC: Cooperative. Good eye contact. Appropriate mood and affect. SKIN: Warm, dry, normal turgor, no rashes or lesions noted, normal capillary refill. Laboratory Results - last 24 hr 07/04/17 13:25 WBC 6.0 RBC 3.11 L Hgb 9.6 L Hct 29.6 L MCV 95.3 MCH 30.9 MCHC 32.5 RDW 19.4 H Plt Count 110 L MPV 9.0 Neutrophils % 67.5 Lymphocytes % 11.3 D Monocytes % 13.5 H Eosinophils % 6.3 H Basophils % 1.4 ASSESSMENT/PLAN: 66 year old Male with PMHx significant for DM, HTN, HLD, CVA, CAD, ESRD, CHF, previous DVT, who frequents the hospital for pain medication, presented yesterday for a pain in his right neck and was observed to have passed significant amounts of bright red blood per rectum. #GI bleed: Upper vs Lower : no clear history of vomiting,or hematemesis Previous history of gastric ulcers on EGD though may point to upper 1 unit Platelets- FFP if bleeding actively Hold IVF- ESRD Hold hydralazine hold nitrates- to prevent hypotension with bleeding Hold apaxiban Pantoprazole drip CBC Q6H #Neck pain: Tabs tylenol No opiates recommended at this time ID consult- for evolving parotitis with fat straddling Per Dr Wong-Iv Vancomycin Vanco level #HTN Continue home Coreg 12.5 bid- hold if SBP<105 Hold hydralazine hold nitrates- to prevent hypotension with bleeding #ESRD Not overloaded at this time Monitor following transfusion #HF Coreg #DM No DM medications seen in last discharge Insulin sliding scale #DVT Hold heparin (bleeding) SCDs both legs #FEN Hold IV fluids 1 unit Platelets stat FFp if bleeding monitor electrolytes NPO for now Visit type - Emergency Visit Emergency Visit: Yes ED Registration Date: 07/04/17 Care time: The patient presented to the Emergency Department on the above date and was hospitalized for further evaluation of their emergent condition. - New Patient This patient is new to me today: Yes Date on this admission: 07/05/17 - Critical Care Critical Care patient: No
[2017-07-04] MEDS ORDERED: CARVEDILOL PHOSPHATE CR 10 MG CAPSULE PO SCH (15:45)
[2017-07-04] MEDS ORDERED: VANCOMYCIN 1,000 MG in DEXTROSE 5%-WATER - 250 ML IVPB ONE (16:37)
[2017-07-04] MEDS: PANTOPRAZOLE SODIUM 80 MG in SODIUM CHLORIDE 100 ML IVPB SCH (17:28)
[2017-07-04 20:31] LABS: BASOPHIL 1.1 % (0-2.0); EOSINOPHIL 2.9 % (0-4.5); MCH 31.7 pg (25.7-33.7); MCHC 33.2 g/dl (32.0-35.9); MEAN CELL VOLUME 95.7 fl (80-96); NEUTROPHILS 77.8 % (42.8-82.8); PLATELET COUNT 139 K/MM3 (134-434); RDW 19.5 % (11.9-15.9)
[2017-07-04] MEDS: ACETAMINOPHEN WITH CODEINE 300MG/30MG TABLET PO PRN (21:05)
[2017-07-04] MEDS: CARVEDILOL 12.5 MG TABLET (FP) PO SCH (21:05)
[2017-07-04] MEDS: ATORVASTATIN CA 20 MG TABLET (FP) PO SCH (21:05)
[2017-07-05] MEDS: PANTOPRAZOLE SODIUM 80 MG in SODIUM CHLORIDE 100 ML IVPB SCH ×3 (01:46→22:04)
[2017-07-05] MEDS: ACETAMINOPHEN WITH CODEINE 300MG/30MG TABLET PO PRN (06:39)
[2017-07-05 08:13] LABS: BASOPHIL 1.2 % (0-2.0); EOSINOPHIL 5.2 % (0-4.5); MCH 31.3 pg (25.7-33.7); MCHC 32.7 g/dl (32.0-35.9); MEAN CELL VOLUME 95.8 fl (80-96); MEAN PLT VOLUME 8.8 fl (7.5-11.1); NEUTROPHILS 66.4 % (42.8-82.8); PLATELET COUNT 108 K/MM3 (134-434); RDW 19.3 % (11.9-15.9); WHITE BLOOD COUNT 5.4 K/mm3 (4.0-10.0)
[2017-07-05 08:40] LABS: ALK PHOS 113 U/L (45-117); ANION GAP 10 (8-16); BILIRUBIN,TOTAL 0.5 mg/dL (0.2-1.0); CALCIUM 8.9 mg/dL (8.5-10.1); CO2 25 mmol/L (21-32); CREATININE 6.5 mg/dL (0.7-1.3); SGOT/AST 25 U/L (15-37); SGPT/ALT 21 U/L (12-78); TOT PROT 6.4 g/dl (6.4-8.2)
--- NOTE | 2017-07-05 08:40 | EKG ---
Test Reason : Blood Pressure : / mmHG Vent. Rate : 061 BPM Atrial Rate : 053 BPM P-R Int : 000 ms QRS Dur : 162 ms QT Int : 470 ms P-R-T Axes : 000 065 -32 degrees QTc Int : 473 ms Ventricular-paced rhythm Biventricular pacemaker detected ABNORMAL ECG WHEN COMPARED WITH ECG OF 03-JUL-2017 22:23, NO SIGNIFICANT CHANGE WAS FOUND Confirmed by MD MAINOR, KAROLINE ([id number]) on 07/05/2017 8:40:19 AM Referred By: Confirmed By:KAROLINE HAYWARD MD
--- NOTE | 2017-07-05 08:44 | EKG ---
Test Reason : Blood Pressure : / mmHG Vent. Rate : 060 BPM Atrial Rate : 234 BPM P-R Int : 000 ms QRS Dur : 178 ms QT Int : 502 ms P-R-T Axes : 000 164 -39 degrees QTc Int : 502 ms AV dual-paced rhythm Biventricular pacemaker detected ABNORMAL ECG WHEN COMPARED WITH ECG OF 29-JUN-2017 17:38, NO SIGNIFICANT CHANGE WAS FOUND Confirmed by MD MAINOR, KAROLINE ([id number]) on 07/05/2017 8:43:51 AM Referred By: Confirmed By:KAROLINE HAYWARD MD
[2017-07-05] MEDS ORDERED: EPOETIN ALFA IVPUSH ONE (09:00)
[2017-07-05 09:06] LABS: GLUCOSE,RANDOM 49 mg/dL (74-106)
[2017-07-05] MEDS ORDERED: DEXTROSE 50%-WATER - 25 GM/50 ML VIAL IVPUSH ONE ×2 (09:07→09:30)
[2017-07-05] MEDS ORDERED: DEXTROSE 50%-WATER 50 ML DISP.SYRIN ONE (09:14)
[2017-07-05] MEDS: CARVEDILOL 12.5 MG TABLET (FP) PO SCH (10:11)
[2017-07-05] MEDS ORDERED: DESMOPRESSIN ACETATE 4 MCG/ML AMP IVPB ONE ×2 (10:36→12:45)
--- NOTE | 2017-07-05 10:36 | PN ---
Progress Note (short form) - Note Progress Note: RENAL Pt is awake and alert reponds to questions clearly says he wants surgery Last Vital Signs Temp Pulse Resp BP Pulse Ox 97.3 F L 88 18 156/87 97 07/05/17 09:19 07/05/17 09:19 07/05/17 09:19 07/05/17 09:19 07/04/17 21:00 heent has significant facial edema lungs clear cvs s1s2 rr abd soft ext no edema neuro a+ox3 Current Medications Generic Name Dose Route Start Last Admin Trade Name Freq PRN Reason Stop Dose Admin Acetaminophen/Codeine Phosphate 1 tab 07/04/17 15:52 07/05/17 06:39 Tylenol # 3 - PO 1 tab Q8H PRN Administration FEVER OR PAIN Atorvastatin Calcium 20 mg 07/04/17 22:00 07/04/17 21:05 Lipitor - PO 20 mg HS NGOC Administration Carvedilol 12.5 mg 07/04/17 22:00 07/05/17 10:11 Coreg - PO Not Given BID NGOC Pantoprazole Sodium 80 mg/ 100 mls @ 10 mls/hr 07/04/17 16:00 07/05/17 01:46 Sodium Chloride IVPB Not Given Q10H NGOC 8 MG/HR CBC, BMP 07/05/17 07:00 07/05/17 07:00 IMPRESSION esrd cardiomyopathy s/p aicd active gi bleeding which may stop once effect of eliquis wears off dm vasculopath h/o dvt on eliquis multiple recent infections PLAN pt does not meet criteria for acute dialysis today. Will dialyze tomorrow can be transfused during hd tomorrow would not give kayexalate but can give a laxative such as lactulose if necessary if k continues to rise will order ddavp MV
[2017-07-05] MEDS ORDERED: EPOETIN ALFA SQ ONE ×2 (10:38→12:45)
--- NOTE | 2017-07-05 10:57 | PN ---
Progress Note (short form) - Note Progress Note: Subjective: no fever or chills, had a black BM this am. tried to sign AMA last night Objective: Vital Signs: Last Vital Signs Temp Pulse Resp BP Pulse Ox 97.3 F L 88 18 156/87 97 07/05/17 09:19 07/05/17 09:19 07/05/17 09:19 07/05/17 09:19 07/04/17 21:00 Laboratory Results - last 24 hr 07/04/17 07/04/17 07/04/17 08:15 10:18 13:25 WBC 6.3 6.0 RBC 3.01 L 3.11 L Hgb 9.3 L D 9.6 L Hct 28.7 L D 29.6 L MCV 95.4 95.3 MCH 30.9 30.9 MCHC 32.4 32.5 RDW 19.3 H 19.4 H Plt Count 104 L 110 L MPV 9.2 9.0 Total Counted 100 Neutrophils % No Result Required. 67.5 Neutrophils % (Manual) 72 Lymphocytes % No Result Required. 11.3 D Lymphocytes % (Manual) 13 Monocytes % 13.5 H Monocytes % (Manual) 7 Eosinophils % 6.3 H Eosinophils % (Manual) 8 H Basophils % 1.4 Sodium Potassium Chloride Carbon Dioxide Anion Gap BUN Creatinine Creat Clearance w eGFR POC Glucometer Random Glucose Calcium Total Bilirubin AST ALT Alkaline Phosphatase Total Protein Albumin Random Vancomycin Blood Type O POSITIVE Antibody Screen Negative Crossmatch See Detail 07/04/17 07/05/17 07/05/17 20:15 07:00 07:00 WBC 9.0 D 5.4 D RBC 2.64 L 2.48 L Hgb 8.4 L D 7.8 L Hct 25.3 L 23.7 L MCV 95.7 95.8 MCH 31.7 31.3 MCHC 33.2 32.7 RDW 19.5 H 19.3 H Plt Count 139 D 108 L D MPV 9.0 8.8 Total Counted Neutrophils % 77.8 66.4 Neutrophils % (Manual) Lymphocytes % 7.4 L D 13.8 D Lymphocytes % (Manual) Monocytes % 10.8 H 13.4 H Monocytes % (Manual) Eosinophils % 2.9 5.2 H Eosinophils % (Manual) Basophils % 1.1 1.2 Sodium Potassium Chloride Carbon Dioxide Anion Gap BUN Creatinine Creat Clearance w eGFR POC Glucometer Random Glucose Calcium Total Bilirubin AST ALT Alkaline Phosphatase Total Protein Albumin Random Vancomycin 0.901 Blood Type Antibody Screen Crossmatch 07/05/17 07/05/17 07:00 09:43 WBC RBC Hgb Hct MCV MCH MCHC RDW Plt Count MPV Total Counted Neutrophils % Neutrophils % (Manual) Lymphocytes % Lymphocytes % (Manual) Monocytes % Monocytes % (Manual) Eosinophils % Eosinophils % (Manual) Basophils % Sodium 138 Potassium 5.4 H D Chloride 103 Carbon Dioxide 25 Anion Gap 10 BUN 81 H D Creatinine 6.5 H D Creat Clearance w eGFR 8.60 POC Glucometer 182 Random Glucose 49 L* D Calcium 8.9 Total Bilirubin 0.5 AST 25 ALT 21 Alkaline Phosphatase 113 D Total Protein 6.4 Albumin 3.0 L Random Vancomycin Blood Type Antibody Screen Crossmatch Physical Exam: NAD, comfortable no facial droop. Neck with enlarged non tender L parotid gland, no increased warmth . MMM CV: RRR, 3/6 Dm at [facility], and 3/6 SM at [facility] Abd : soft, NT, ND, Nl BS . in RLQ there a small ( 2x1cm) hard area palpated. no tenderness . Ext: no edema Diaper with maroon spotting ASSESSMENT AND PLAN: 66 Y/o unfortunate man with h/o ESRD on HD (,,Thu), CHF, CABG, PPM, DM, Right 3rd digit amputation, CAD s/p CABG and stents who presented to ER with pain in L neck and had a rectal bleed while in ER 1- Rectal bleed : now with melena . actively bleeding. ingaley upper GI bleed form his Peptic ulcer. - cont PPI gtt . - HB dropped from 11 to 7.8 will transfuse a unit - give one unit of FFP - DDAVP ordered. - hold any blood thinners - half-way Continued AC might not be a good idea for him due to recurrent GI bleed . will d/w him when stable - repeat H&H after transfusion then frequently - CT of abd /pelvis w/o contrast pending - Spoke to Dr. Gonzalez as pt will need an EGD today 2- L neck pain. was recently treated for parotitis with ABx . also was recently treated for transient staph bacteremia . Not clear if he finished the course of ABx. CT scan showed decreased size of parotid gland but still with stranding. gland is not tender though. - one dose of vanco ordered last night, pt refused . to be given now 3- ESRD: seen by renal. hyperkalemic - Cont sevelamer - will not be dialised today. - will watch his volume status with transfusion . - repeat K this evening . will give lactulose 4- H/o CHF:no signs of fluid overload. - hold all BP meds due to active bleed - volume mgt with HD 5- H/o DM:hypoglycemic this am . gave one amp of D50 . monitor BGMs 6- Pain: will use tylenol only. Avoid narcotics. Dispo : HLOC, if he has another black BM or if tachycardic, will transfer to ICU NPO COde status d/w him, FULL CODE Visit type - Emergency Visit Emergency Visit: Yes ED Registration Date: 07/04/17 Care time: The patient presented to the Emergency Department on the above date and was hospitalized for further evaluation of their emergent condition. - New Patient This patient is new to me today: No - Critical Care Critical Care patient: No
[2017-07-05] MEDS ORDERED: VANCOMYCIN 1,000 MG in DEXTROSE 5%-WATER - 250 ML IVPB ONE (11:00)
--- NOTE | 2017-07-05 14:05 | PN ---
Progress Note (short form) - Note Progress Note: ID Consult dictated L parotitis ESRD GI bleed Await blood c/s vancomycin 1gm IVPB x 1 dose Warm compresses/ analgesics prn
[2017-07-05] MEDS ORDERED: ROCURONIUM BROMIDE 50 MG/5 ML VIAL ONE (14:15)
[2017-07-05] MEDS ORDERED: ETOMIDATE 20 MG/10 ML AMPUL IVPUSH ONE (14:15)
[2017-07-05] MEDS ORDERED: NEOSTIGMINE METHYLSULFATE 0.5 MG/ML - 10 ML MDV ONE (14:16)
[2017-07-05] MEDS ORDERED: GLYCOPYRROLATE 0.2 MG/1 ML VIAL ONE ×3 (14:16)
[2017-07-05] MEDS ORDERED: ONDANSETRON 4 MG/2 ML VIAL ONE (14:17)
--- NOTE | 2017-07-05 14:37 | CONS ---
DATE OF CONSULTATION: DATE OF DICTATION: 07/05/2017 A 66-year-old male, history of end-stage renal disease, on hemodialysis, evaluated for left parotitis. The patient was admitted to the hospital on July 03, 2017, with complaints of left parotid gland swelling and tenderness. He complained of neck pain, which he reported to be sharp in nature and not associated with fever or chills. He was found to have a tender left parotid gland. A CAT scan of the neck showed inflammatory changes involving the left parotid consistent with acute parotitis. His hospital course has now been complicated by gastrointestinal bleeding. He has had recurrent ER visits and hospital admissions for pain syndrome. He is unable to offer any additional details. PAST MEDICAL HISTORY: Positive for end-stage renal disease, on hemodialysis, hypertension, hyperlipidemia, peripheral vascular disease, coronary artery disease. PAST SURGICAL HISTORY: Status post permanent pacemaker, coronary artery bypass, coronary artery stents, right upper extremity AV fistula. ALLERGIES: No known allergies. SOCIAL HISTORY: Resides at home. Denies tobacco or alcohol use. He is chronically ill and has had recurrent emergency room visits and hospitalizations. MEDICATION: Procrit, Lipitor, Protonix, Tylenol. SYSTEMS REVIEW: Neurologic: No loss of consciousness, seizure activity, or focal weakness. Cardiac: Negative chest pain or palpitations. Respiratory: Negative cough or sputum production. Gastrointestinal: As per HPI. Genitourinary: End-stage renal disease, on hemodialysis. LABORATORY DATA: White count 5.4, hematocrit 23.7, platelets 108. BUN 81, creatinine 6.5. Blood cultures pending. PHYSICAL EXAMINATION: General: He is chronically ill appearing. Vital Signs: Temperature 97.3. Blood pressure 156/87. Pulse 88, regular. Respirations 18 per minute. ENT: Sclerae anicteric. There is tenderness and swelling present over the left parotid area. No appreciable erythema or warmth. Heart Sounds: S1, S2. Lungs: Poor inspiratory effort. Abdomen: Soft. Mild diffuse tenderness. Extremities: Negative for edema. AV fistula present in the right upper extremity. IMPRESSION: 1. Probable acute left suppurative parotitis. 2. End-stage renal disease, on hemodialysis. 3. Gastrointestinal bleeding. Will empirically cover for staphylococcus in this patient with acute parotitis and end-stage renal disease with vancomycin 1 g IV piggyback 1 dose, obtain trough level in a.m., and re-dose accordingly. Warm compresses and analgesics as needed. Will follow. Thank you for the kind referral. GERBER GOINS M.D. [facility]/[id number]
[2017-07-05] MEDS ORDERED: NALOXONE HCL 0.4 MG/ML VIAL ONE (16:11)
--- NOTE | 2017-07-05 16:40 | PN ---
Progress Note (short form) - Note Progress Note: GI Procedure Note ( covering Dr Encinas) : Was contacted by Dr Andino this AM that Tawanda's Hb had dropped precipitously . After informed consent was obtained EGD was performed. This revealed multiple potential bleeding sites but no actively bleeding site. Please see endoscopy report. Tawanda has severe reflux esophagitis, a persistent large prepyloric and possible malignant ulcer and multiple duodenal ulcers among other things. Will transfer to ICU and give PPI drip. Was intubated for the procedure and extubated before leaving the GI suite. Discussed case with Dr Andino. Will need repeat EGD in [address] Encinas will return tomorrow. Problem List - Problems (1) Gastric ulcer Code(s): K25.9 - GASTRIC ULCER, UNSP ACUTE OR CHRONIC, W/O HEMOR OR PERF (2) Diverticulosis Code(s): K57.90 - DVRTCLOS OF INTEST, PART UNSP, W/O PERF OR ABSCESS W/O BLEED (3) Duodenal ulcer Code(s): K26.9 - DUODENAL ULCER, UNSP ACUTE OR CHRONIC, W/O HEMOR OR PERF
[2017-07-05] MEDS ORDERED: ONDANSETRON 4 MG/2 ML VIAL IVPUSH PRN (16:52)
[2017-07-05] MEDS ORDERED: SODIUM CHLORIDE 1,000 ML IV SCH (17:00)
[2017-07-05 19:53] LABS: MCH 31.3 pg (25.7-33.7); MCHC 33.3 g/dl (32.0-35.9); MEAN PLT VOLUME 9.5 fl (7.5-11.1); PLATELET COUNT 105 K/MM3 (134-434)
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
[2017-07-05] MEDS ORDERED: LACTULOSE 20 GM/30 ML UDC (FOR ORAL USE ONLY) PO ONE (22:15)
[2017-07-05] MEDS ORDERED: ATORVASTATIN CA 20 MG TABLET (FP) PO SCH (22:15)
[2017-07-06] MEDS ORDERED: DEXTROSE 50%-WATER 50 ML DISP.SYRIN ONE (04:42)
[2017-07-06] MEDS ORDERED: DEXTROSE 5%-0.45% SALINE 1,000 ML IV SCH (04:45)
[2017-07-06] MEDS ORDERED: DEXTROSE 50%-WATER - 25 GM/50 ML VIAL IVPUSH ONE (05:08)
[2017-07-06 06:03] LABS: BASOPHIL 1.3 % (0-2.0); EOSINOPHIL 8.4 % (0-4.5); MCHC 33.2 g/dl (32.0-35.9); MEAN CELL VOLUME 93.2 fl (80-96); MEAN PLT VOLUME 8.9 fl (7.5-11.1); NEUTROPHILS 65.9 % (42.8-82.8); PLATELET COUNT 96 K/MM3 (134-434); WHITE BLOOD COUNT 4.2 K/mm3 (4.0-10.0)
[2017-07-06 06:20] LABS: INR 1.17 (0.82-1.09); PROTHROMBIN TIME (PATIENT) 12.9 SEC (9.98-11.88)
[2017-07-06 06:42] LABS: CALCIUM 8.4 mg/dL (8.5-10.1)
[2017-07-06 06:46] LABS: ANION GAP 16 (8-16); CO2 23 mmol/L (21-32); CREATININE 7.1 mg/dL (0.7-1.3); GLUCOSE,RANDOM 131 mg/dL (74-106)
[2017-07-06] MEDS ORDERED: HEMOQUE TEST 1 EACH EACH ONE (06:52)
--- NOTE | 2017-07-06 07:37 | PN ---
Physical Exam: 24H Event: yesterday: emergent EGD for acute Hgb drop; EGD - no active bleeding, reflux esophagitis, persistent large prepyloric and possible malignant ulcer, multiple duodenal ulcers O/N: No acute events AM: melena noted in diaper, repeat Hgb stable (9.1), receiving HD (goal 2kg) SUBJECTIVE: Patient seen and examined in ICU. Receiving HD. Denies any abdominal pain, chest pain, or SOB. OBJECTIVE: Vital Signs Period Temp Pulse Resp BP Sys/Hinds Pulse Ox Last 24 Hr 97.3 F-98.5 F 60-101 14-18 126-175/58-127 96-100 Intake & Output 07/03/17 07/04/17 07/05/17 07/06/17 23:59 23:59 23:59 23:59 Intake Total 450 1076 586 Output Total 0 0 Balance 450 1076 586 Weight 53.524 kg 53.524 kg 52.673 kg 53.841 kg GENERAL: The patient is awake, alert, and fully oriented, nad EYES: sclera anicteric, conjunctiva clear ENT: enlarged, non-tender L parotid, moist mucous membranes LUNGS: CTAB HEART: rrr, 3/6 systolic murmur LLSB, 3/6 diastolic murmer rUSB ABDOMEN: Soft, ntnd UPPER EXTREMITIES: Amputated R 3rd digit, no edema LOWER: 2+ pulses, warm, well-perfused, no edema. CBC, BMP 07/06/17 05:00 07/06/17 05:00 Hepatic Panel Total Bilirubin 0.5 mg/dL (0.2-1.0) 07/05/17 07:00 AST 25 U/L (15-37) 07/05/17 07:00 ALT 21 U/L (12-78) 07/05/17 07:00 Alkaline Phosphatase 113 U/L (45-117) D 07/05/17 07:00 Albumin 3.0 g/dl (3.4-5.0) L 07/05/17 07:00 Active Medications Acetaminophen/Codeine Phosphate (Tylenol # 3 -) 1 tab PO Q8H PRN PRN Reason: FEVER OR PAIN Last Admin: 07/05/17 06:39 Dose: 1 tab Atorvastatin Calcium (Lipitor -) 20 mg PO HS NGOC Last Admin: 07/05/17 22:19 Dose: 20 mg Dextrose (D50w (Vial) -) 50 gm IVPUSH NOW ONE Stop: 07/06/17 05:09 Last Admin: 07/06/17 04:55 Dose: 50 gm Fentanyl (Sublimaze Injection -) 50 mcg IVPUSH [id number] PRN PRN Reason: PAIN Stop: 07/08/17 16:53 Last Admin: 07/05/17 16:35 Dose: 50 mcg Pantoprazole Sodium 80 mg/ (Sodium Chloride) 100 mls @ 10 mls/hr IVPB Q10H NGOC PRN Reason: 8 MG/HR Last Admin: 07/05/17 22:04 Dose: 10 mls/hr Dextrose/Sodium Chloride (D5-1/2ns -) 1,000 mls @ 42 mls/hr IV ASDIR NGOC Last Admin: 07/06/17 04:50 Dose: 42 mls/hr ASSESSMENT/PLAN: 66yo man with PMH of ESRD (on HD TTS), DM, HTN, HLD, CVA, DVT, CAD/CHF s/p CAGB and PCI, BPH, L parotitis who presented to the ED initially with neck pain, but found to have hematochezia. Patient was on floors yesterday and found to have precipitous drop in Hgb, was transfused PRBC and FFP, and underwent an emergent EGD, which revealed no active bleeding source, but severe reflux esophagitis, suspicious malignant gastric ulcer, and multiple duodenal ulcers. Although melena noted in diaper this morning, there are no signs of active bleeding, his hgb and hemodynamics have been stable. #hematochezia -Monitor H&H -PPI gtt x 72h --> BID -f/u cancer markers and biopsy pathology -hold home apixaban and ASA #ESRD -HD today - goal 2kg #HTN -Hold home hydralazine and Imdur -Start carvedilol 12.5mg bid if needed #L parotitis -ID consulted -Monitor off abx #Diabetes -BGM ACHS -ISS ACHS #FEN -Hold IVF -HyperK --> corrected with HD -NPO, advance per GI #DVT PPX -SCDs, a/c c/i #GI ppx -on protonix gtt #Dispo: transfer to floors d/w Dr. Gerry David MD PGY-1 Visit type - Emergency Visit Emergency Visit: No - New Patient This patient is new to me today: Yes Date on this admission: 07/06/17 - Critical Care Critical Care patient: Yes Total Critical Care Time (in minutes): 35 Critical Care Statement: The care of this patient involved high complexity decision making to prevent further life threatening deterioration of the patient 's condition and/or to evaluate & treat vital organ system(s) failure or risk of failure.
[2017-07-06] MEDS ORDERED: LACTULOSE 20 GM/30 ML UDC (FOR ORAL USE ONLY) PO ONE ×2 (08:09→09:15)
[2017-07-06] MEDS: PANTOPRAZOLE SODIUM 80 MG in SODIUM CHLORIDE 100 ML IVPB SCH ×2 (08:46→22:22)
[2017-07-06] MEDS ORDERED: EPOETIN ALFA IVPUSH ONE (09:00)
[2017-07-06] MEDS ORDERED: DESMOPRESSIN ACETATE 4 MCG/ML AMP IVPB ONE (09:30)
[2017-07-06 10:08] LABS: MCHC 33.6 g/dl (32.0-35.9); MEAN CELL VOLUME 92.2 fl (80-96); MEAN PLT VOLUME 8.7 fl (7.5-11.1); PLATELET COUNT 116 K/MM3 (134-434); RDW 19.4 % (11.9-15.9); WHITE BLOOD COUNT 3.8 K/mm3 (4.0-10.0)
[2017-07-06 10:50] LABS: CREATININE 2.2 mg/dL (0.7-1.3)
--- NOTE | 2017-07-06 11:05 | PN ---
Progress Note (short form) - Note Progress Note: ANESTHESIOLOGY POST-OP CHECK 66M s/p EGD under general anesthesia , POD #1. No acute complaints. Denies pain , N/V. Vital Signs Temperature 98.6 F 07/06/17 08:00 Pulse Rate 63 07/06/17 10:43 Respiratory Rate 16 07/06/17 10:00 Blood Pressure 156/64 07/06/17 10:00 O2 Sat by Pulse Oximetry (%) 100 07/06/17 10:43 Active Medications Acetaminophen/Codeine Phosphate (Tylenol # 3 -) 1 tab PO Q8H PRN PRN Reason: FEVER OR PAIN Atorvastatin Calcium (Lipitor -) 20 mg PO HS NGOC Desmopressin Acetate (Ddavp Injection -) 1 mcg IVPB ONCE ONE Stop: 07/06/17 09:31 Fentanyl (Sublimaze Injection -) 50 mcg IVPUSH [id number] PRN PRN Reason: PAIN Stop: 07/08/17 16:53 Last Admin: 07/05/17 16:35 Dose: 50 mcg Pantoprazole Sodium 80 mg/ (Sodium Chloride) 100 mls @ 10 mls/hr IVPB Q10H NGOC PRN Reason: 8 MG/HR Last Admin: 07/06/17 08:46 Dose: 10 mls/hr CBC, BMP 07/06/17 09:35 07/06/17 09:55 Gen: Awake, NAD No apparent anesthesia complications. Continue managment as per primary team.
--- NOTE | 2017-07-06 12:31 | PN ---
Teaching Attending Note Name of Resident: Janki David ATTENDING PHYSICIAN STATEMENT I saw and evaluated the patient. I reviewed the resident's note and discussed the case with the resident. I agree with the resident's findings and plan as documented. SUBJECTIVE: Pt seen and examined in the ICU. No further bleeding noted, H/H has been stable. Denies shortness of breath or chest pain. Currently receiving HD. OBJECTIVE: Last Vital Signs Temp Pulse Resp BP Pulse Ox 98.6 F 63 16 156/64 100 07/06/17 08:00 07/06/17 10:43 07/06/17 10:00 07/06/17 10:00 07/06/17 10:43 Intake & Output 07/03/17 07/04/17 07/05/17 07/06/17 23:59 23:59 23:59 23:59 Intake Total 450 1076 586 Output Total 0 0 Balance 450 1076 586 Weight 118 lb 118 lb 116 lb 2 oz 118 lb 11.2 oz Gen: NAD at rest Heart: RRR Lung: decreased breath sounds at the bases Abd: soft, nontender Ext: no edema CBC, BMP 07/06/17 09:35 07/06/17 09:55 Active Medications Acetaminophen/Codeine Phosphate (Tylenol # 3 -) 1 tab PO Q8H PRN PRN Reason: FEVER OR PAIN Atorvastatin Calcium (Lipitor -) 20 mg PO HS NGOC Desmopressin Acetate (Ddavp Injection -) 1 mcg IVPB ONCE ONE Stop: 07/06/17 09:31 Fentanyl (Sublimaze Injection -) 50 mcg IVPUSH [id number] PRN PRN Reason: PAIN Stop: 07/08/17 16:53 Last Admin: 07/05/17 16:35 Dose: 50 mcg Pantoprazole Sodium 80 mg/ (Sodium Chloride) 100 mls @ 10 mls/hr IVPB Q10H NGOC PRN Reason: 8 MG/HR Last Admin: 07/06/17 08:46 Dose: 10 mls/hr ASSESSMENT AND PLAN: GI Bleed Gastric Ulcer - r/o Malignancy Acute Blood Loss Anemia ESRD on HD CAD s/p CABG h/o DVT LV Systolic Dysfunction Mitral Regurgitation - monitor H/H - transfuse as needed - hold anticoagulation, antiplatelets - HD pre renal - protonix - PO per GI - f/u pathology - H/H has been stable without evidence of bleeding, can monitor on floor
--- NOTE | 2017-07-06 12:49 | PN ---
Physical Exam: SUBJECTIVE: Patient seen and examined Patient seen this morning, drowsy. Had EGD for acute bleed. Black tarry stools seen in his diaper this am. OBJECTIVE: Vital Signs Period Temp Pulse Resp BP Sys/Hinds Pulse Ox Last 24 Hr 97.5 F-98.6 F 50-101 14-18 126-175/58-127 96-100 ENERAL: drowsy, and oriented, in no acute respiratory distress. HEAD: Normal with no signs of trauma. Palpable occipital node on L. EYES: Pupils equal, about 1mm, and reactive to light, extraocular movements intact, sclera anicteric, conjunctiva clear, not pale. EARS, NOSE, THROAT: Ears normal, nares patent, oropharynx clear without exudates. Moist mucous membranes. Missing teeth. Parotid fullness more on the L , not warm, not tender. NECK: Trachea central. No obvious swelling. Normal range of motion, supple without lymphadenopathy, JVD, or masses. Thyroid gland not palpable. LUNGS: Breath sounds equal, clear to auscultation bilaterally. No wheezes, and no crackles. No accessory muscle use. HEART: Regular rate and rhythm, normal S1 and S2 without murmur, rub or gallop. ABDOMEN: Soft, nontender, not distended, normoactive bowel sounds, no guarding, no rebound, no masses. No hepatomegaly or splenomegaly. firm circular 2mm palpable nodes in R inguinal area. GELACIO: Significant black tarry stools seen in diaper UPPER EXTREMITIES: Amputated R middle finger. 2+ pulses, warm, well-perfused. No cyanosis. No clubbing. No peripheral edema. LOWER EXTREMITIES: 2+ pulses, warm, well-perfused. No calf tenderness. No peripheral edema. NEUROLOGICAL: Drowsy. Normal speech. gait not observed. Laboratory Results - last 24 hr 07/05/17 07/05/17 07/05/17 12:34 15:01 18:26 WBC RBC Hgb Hct MCV MCH MCHC RDW Plt Count MPV Neutrophils % Lymphocytes % Monocytes % Eosinophils % Basophils % PT with INR INR Sodium Potassium Chloride Carbon Dioxide Anion Gap BUN Creatinine POC Glucometer 77 90 95.57800 Random Glucose Calcium Random Vancomycin 07/05/17 07/05/17 07/06/17 19:25 19:25 05:00 WBC 5.0 RBC 3.03 L D Hgb 9.5 L D Hct 28.5 L D MCV 94.0 MCH 31.3 MCHC 33.3 RDW 19.0 H Plt Count 105 L MPV 9.5 Neutrophils % Lymphocytes % Monocytes % Eosinophils % Basophils % PT with INR INR Sodium Potassium 5.8 H Chloride Carbon Dioxide Anion Gap BUN Creatinine POC Glucometer Random Glucose Calcium Random Vancomycin 14.997 07/06/17 07/06/17 07/06/17 05:00 05:00 05:00 WBC 4.2 RBC 2.94 L Hgb 9.1 L Hct 27.4 L MCV 93.2 MCH 31.0 MCHC 33.2 RDW 20.0 H Plt Count 96 L MPV 8.9 Neutrophils % 65.9 Lymphocytes % 13.5 Monocytes % 10.9 H Eosinophils % 8.4 H Basophils % 1.3 PT with INR 12.90 H INR 1.17 H Sodium 141 Potassium 5.4 H Chloride 102 Carbon Dioxide 23 Anion Gap 16 BUN 81 H Creatinine 7.1 H POC Glucometer Random Glucose 131 H D Calcium 8.4 L Random Vancomycin 07/06/17 07/06/17 07/06/17 09:33 09:35 09:55 WBC 3.8 L RBC 2.95 L Hgb 9.1 L Hct 27.2 L MCV 92.2 MCH 31.0 MCHC 33.6 RDW 19.4 H Plt Count 116 L D MPV 8.7 Neutrophils % Lymphocytes % Monocytes % Eosinophils % Basophils % PT with INR INR Sodium Potassium Chloride Carbon Dioxide Anion Gap BUN Cancelled Creatinine POC Glucometer 134.66841 Random Glucose Calcium Random Vancomycin 07/06/17 09:55 WBC RBC Hgb Hct MCV MCH MCHC RDW Plt Count MPV Neutrophils % Lymphocytes % Monocytes % Eosinophils % Basophils % PT with INR INR Sodium Potassium Chloride Carbon Dioxide Anion Gap BUN 23 H D Creatinine 2.2 H D POC Glucometer Random Glucose Calcium Random Vancomycin Active Medications Generic Name Dose Route Start Last Admin Trade Name Freq PRN Reason Stop Dose Admin Acetaminophen/Codeine Phosphate 1 tab 07/06/17 08:55 Tylenol # 3 - PO Q8H PRN FEVER OR PAIN Atorvastatin Calcium 20 mg 07/06/17 22:00 Lipitor - PO HS NGOC Desmopressin Acetate 1 mcg 07/06/17 09:30 Ddavp Injection - IVPB 07/06/17 09:31 ONCE ONE Fentanyl 50 mcg 07/05/17 16:52 09/24/17 16:35 Sublimaze Injection - IVPUSH 07/08/17 16:53 50 mcg [id number] PRN Administration PAIN Pantoprazole Sodium 80 mg/ 100 mls @ 10 mls/hr 07/04/17 16:00 07/06/17 08:46 Sodium Chloride IVPB 10 mls/hr Q10H NGOC Administration 8 MG/HR ASSESSMENT/PLAN: 66 year old Male with PMHx significant for DM, HTN, HLD, CVA, CAD, ESRD, CHF, previous DVT, who frequents the hospital for pain medication, presented yesterday for a pain in his right neck and was observed to have passed significant amounts of bright red blood per rectum. #GI bleed: Patient had witnessed karma blood per rectum in ED then melena on floors Patient had been on Eliquis and had a HB drop from 11 to 7.8 Received 1unit FFp, 1unit PRBC, DDAVP and repeat H& H after transfusion and the frequently urgent EGD was done and showed no active bleed at the time but ulcers were seen as below: Likely upper- per EGD - Severe relux esophagitis, persistent large prepyloric and possible malignant gastric ulcer and multiple duodenal ulcers Melena stools seen in diaper this am CBC stat-Hgb-9.1 same as before the stool was seen Repeat H and H for 6.00pm 1 unit Platelets-if Hbg drops Hold IVF- ESRD Hold hydralazine hold nitrates- to prevent hypotension with bleeding Hold apaxiban Continue Pantoprazole drip CBC Q6H GI consult- for active bleed ddavp 1MCG iv PUSH ONCE #Neck pain: Tabs tylenol No opiates recommended at this time ID consult- for evolving parotitis with fat straddling Per Dr Wong-Iv Vancomycin cont Vanco level- noted #HTN Continue home Coreg 12.5 bid- hold if SBP<105 Hold hydralazine hold nitrates- to prevent hypotension with bleeding #Hyperkalemia Dialyis #ESRD Receiving dialysis #HF Coreg #DM No DM medications seen in last discharge Insulin sliding scale #DVT Hold heparin (bleeding) SCDs both legs #FEN Hold IV fluids 1 unit Platelets stat monitor electrolytes NPO for now Visit type - Emergency Visit Emergency Visit: Yes ED Registration Date: 07/04/17 Care time: The patient presented to the Emergency Department on the above date and was hospitalized for further evaluation of their emergent condition. - New Patient This patient is new to me today: No - Critical Care Critical Care patient: Yes Total Critical Care Time (in minutes): 45 Critical Care Statement: The care of this patient involved high complexity decision making to prevent further life threatening deterioration of the patient 's condition and/or to evaluate & treat vital organ system(s) failure or risk of failure. - Discharge Referral Referred to [facility] No
--- NOTE | 2017-07-06 15:12 | PN ---
Progress Note, Physician History of Present Illness: Pt seen and examined at bedside. He is awake and appears comfortable. - Current Medication List Current Medications: Active Medications Acetaminophen/Codeine Phosphate (Tylenol # 3 -) 1 tab PO Q8H PRN PRN Reason: FEVER OR PAIN Atorvastatin Calcium (Lipitor -) 20 mg PO HS NGOC Desmopressin Acetate (Ddavp Injection -) 1 mcg IVPB ONCE ONE Stop: 07/06/17 09:31 Fentanyl (Sublimaze Injection -) 50 mcg IVPUSH [id number] PRN PRN Reason: PAIN Stop: 07/08/17 16:53 Last Admin: 07/05/17 16:35 Dose: 50 mcg Pantoprazole Sodium 80 mg/ (Sodium Chloride) 100 mls @ 10 mls/hr IVPB Q10H NGOC PRN Reason: 8 MG/HR Last Admin: 07/06/17 08:46 Dose: 10 mls/hr - Objective Vital Signs: Vital Signs Temperature 98.6 F 07/06/17 08:00 Pulse Rate 60 07/06/17 12:00 Respiratory Rate 16 07/06/17 12:00 Blood Pressure 170/70 07/06/17 12:00 O2 Sat by Pulse Oximetry (%) 100 07/06/17 10:43 Constitutional: Yes: Calm Eyes: Yes: Conjunctiva Clear HENT: Yes: Atraumatic Cardiovascular: Yes: S1, S2 Respiratory: Yes: On Nasal O2 Gastrointestinal: Yes: Soft Genitourinary: Yes: WNL Musculoskeletal: Yes: WNL Neurological: Yes: Oriented Psychiatric: Yes: Oriented Labs: CBC, BMP 07/06/17 09:35 07/06/17 09:55 INR, PTT INR 1.17 (0.82-1.09) H 07/06/17 05:00 Assessment/Plan Current Medications Generic Name Dose Route Start Last Admin Trade Name Freq PRN Reason Stop Dose Admin Acetaminophen/Codeine Phosphate 1 tab 07/06/17 08:55 Tylenol # 3 - PO Q8H PRN FEVER OR PAIN Atorvastatin Calcium 20 mg 07/06/17 22:00 Lipitor - PO HS NGOC Desmopressin Acetate 1 mcg 07/06/17 09:30 Ddavp Injection - IVPB 07/06/17 09:31 ONCE ONE Fentanyl 50 mcg 07/05/17 16:52 07/05/17 16:35 Sublimaze Injection - IVPUSH 07/08/17 16:53 50 mcg [id number] PRN Administration PAIN Pantoprazole Sodium 80 mg/ 100 mls @ 10 mls/hr 07/04/17 16:00 07/06/17 08:46 Sodium Chloride IVPB 10 mls/hr Q10H NGOC Administration 8 MG/HR Impression 1. ESRD 2. CAD 3. HTN 4. narcotic dependence 5. non compliance 6. pleural effusions 7. anemia 8. chest pain 9. DVT 10. GI Bleed Plan - HD today - monitor hg - discussed with ICU - monitor bp Dr Campos
--- NOTE | 2017-07-06 15:32 | PN ---
Progress Note, Physician History of Present Illness: Awake, alert Offers no complaints No c/o neck pain No fever/ chills States he wants to go home - Current Medication List Current Medications: Active Medications Acetaminophen/Codeine Phosphate (Tylenol # 3 -) 1 tab PO Q8H PRN PRN Reason: FEVER OR PAIN Atorvastatin Calcium (Lipitor -) 20 mg PO HS NGOC Desmopressin Acetate (Ddavp Injection -) 1 mcg IVPB ONCE ONE Stop: 07/06/17 09:31 Fentanyl (Sublimaze Injection -) 50 mcg IVPUSH [id number] PRN PRN Reason: PAIN Stop: 07/08/17 16:53 Last Admin: 07/05/17 16:35 Dose: 50 mcg Pantoprazole Sodium 80 mg/ (Sodium Chloride) 100 mls @ 10 mls/hr IVPB Q10H NGOC PRN Reason: 8 MG/HR Last Admin: 07/06/17 08:46 Dose: 10 mls/hr - Objective Vital Signs: Vital Signs Temperature 97.7 F 07/06/17 14:00 Pulse Rate 64 07/06/17 14:00 Respiratory Rate 18 07/06/17 14:00 Blood Pressure 178/66 07/06/17 14:00 O2 Sat by Pulse Oximetry (%) 100 07/06/17 10:43 Constitutional: Yes: No Distress, Other (chronically ill appearing) HENT: Yes: Other (no swelling or tenderness over L parotid) Cardiovascular: Yes: Regular Rate and Rhythm, S1, S2 Respiratory: Yes: Diminished Gastrointestinal: Yes: Normal Bowel Sounds, Soft. No: Tenderness Labs: CBC, BMP 07/06/17 09:35 07/06/17 09:55 INR, PTT INR 1.17 (0.82-1.09) H 07/06/17 05:00 Assessment/Plan L parotitis- resolved ESRD S/P GI bleed Observe off antibiotics
--- NOTE | 2017-07-06 16:28 | PN ---
Teaching Attending Note Name of Resident: Ursula Lewis ATTENDING PHYSICIAN STATEMENT I saw and evaluated the patient. I reviewed the resident's note and discussed the case with the resident. I agree with the resident's findings and plan as documented. SUBJECTIVE: no fever or chills, denies any pain today. no bleeding over night OBJECTIVE: NAD, comfortable no facial droop. Neck with enlarged non tender L parotid gland, no increased warmth . MMM CV: RRR, 3/6 Dm at RUSB, and 3/6 SM at LLSB Abd: soft, NT, ND, Nl BS . in RLQ there a small ( 2x1cm) hard area palpated. no tenderness . Ext: no edema Diaper with Melena . ASSESSMENT AND PLAN: 66 Y/o unfortunate man with h/o ESRD on HD (,,Thu), CHF, CABG, PPM, DM, Right 3rd digit amputation, CAD s/p CABG and stents who presented to ER with pain in L neck and had a rectal bleed while in ER 1- Rectal bleed : s/p EGD yesterday, with non bleeding ulcers in esophagus , stomach and duodenum this am with Melena - Cont PPI gtt - Give DDAVP and platelet transfusion - Repeated Hb stable this am, will repeat again now and this evening - Eliquis and ASA on hold. resuming anticoagulation is risky in this patient with recurrent GI bleeds due to ulcers and uremia . Will d/w later - CT A/P pending to evaluate finding in RLQ - make NPO again due to continued melena 2- L parotitis. - Monitor off Abx 3- ESRD: HD today . hyperkalemia management with HD 4- H/o CHF:volume mgt with HD 5- H/o DM:hypoglycemic this am .resolved 6- Pain: will use tylenol only. Avoid narcotics. 7- h/o HTN: hypertensive again, will resume coreg
[2017-07-06 18:27] LABS: MCH 31.5 pg (25.7-33.7); MCHC 33.8 g/dl (32.0-35.9); MEAN CELL VOLUME 93.3 fl (80-96); PLATELET COUNT 103 K/MM3 (134-434); RDW 19.4 % (11.9-15.9); WHITE BLOOD COUNT 4.3 K/mm3 (4.0-10.0)
[2017-07-06] MEDS: ACETAMINOPHEN WITH CODEINE 300MG/30MG TABLET PO PRN (22:18)
[2017-07-06] MEDS: CARVEDILOL 12.5 MG TABLET (FP) PO SCH (22:19)
[2017-07-06] MEDS: ATORVASTATIN CA 20 MG TABLET (FP) PO SCH (22:19)
[2017-07-07] MEDS: PANTOPRAZOLE SODIUM 80 MG in SODIUM CHLORIDE 100 ML IVPB SCH (05:00)
[2017-07-07 07:14] LABS: MCH 31.2 pg (25.7-33.7); MCHC 33.1 g/dl (32.0-35.9); MEAN CELL VOLUME 94.3 fl (80-96); PLATELET COUNT 95 K/MM3 (134-434); WHITE BLOOD COUNT 3.9 K/mm3 (4.0-10.0)
[2017-07-07 08:55] LABS: ANION GAP 8 (8-16); CALCIUM 8.4 mg/dL (8.5-10.1); CO2 29 mmol/L (21-32); CREATININE 4.4 mg/dL (0.7-1.3); GLUCOSE,RANDOM 119 mg/dL (74-106); MAGNESIUM 2.2 mg/dL (1.8-2.4); PHOSPHOROUS 4.3 mg/dL (2.5-4.9)
[2017-07-07] MEDS: CARVEDILOL 12.5 MG TABLET (FP) PO SCH ×2 (09:31→21:10)
[2017-07-07] MEDS: ACETAMINOPHEN WITH CODEINE 300MG/30MG TABLET PO PRN (09:33)
[2017-07-07] MEDS: ATORVASTATIN CA 20 MG TABLET (FP) PO SCH ×2 (09:35→21:10)
--- NOTE | 2017-07-07 10:08 | PN ---
GI Progress Note Subjective: GASTROENTEROLOGY S/P EGD AND FOUND TO HAVE LARGE GASTRIC DUODENAL ULCER NO FURTHER BLEEDING COUNTS BETTER STATES HE HAS HAD EGD IN DR SOUSA'S OFFICE AND WANTS TO SEE HIM - Objective Vital Signs: Vital Signs Temperature 97.8 F 07/07/17 09:05 Pulse Rate 61 07/07/17 09:05 Respiratory Rate 16 07/07/17 09:05 Blood Pressure 178/76 07/07/17 09:05 O2 Sat by Pulse Oximetry (%) 92 L 07/06/17 21:00 Constitutional: No Distress, Calm Eyes: Yes: Conjunctiva Clear HENT: Yes: WNL Cardiovascular: Yes: Regular Rate and Rhythm Respiratory: Yes: Regular Gastrointestinal Inspection: Yes: WNL ...Auscultate: Yes: Normoactive Bowel Sounds ...Palpate: Yes: Soft Extremities: Yes: WNL Edema: Yes Labs: CBC, BMP 07/07/17 06:00 07/07/17 06:00 INR, PTT INR 1.17 (0.82-1.09) H 07/06/17 05:00 Problem List - Problems (1) Duodenal ulcer Code(s): K26.9 - DUODENAL ULCER, UNSP ACUTE OR CHRONIC, W/O HEMOR OR PERF (2) GI bleed Assessment/Plan: NO BLEEDING MUCH MORE STABLE CONTINUE IV PROTONIX TODAY AND CHANGE TO PROTONIX 40 MG BID IN AM PATIENT WANTS TO SEE DR SOUSA AND ALSO WANTS TO GO HOME SUGGEST A CALL TO DR SOUSA FOR FOLLOW UP KRISTIE MCKAY MD Code(s): K92.2 - GASTROINTESTINAL HEMORRHAGE, UNSPECIFIED (3) Gastric ulcer Code(s): K25.9 - GASTRIC ULCER, UNSP ACUTE OR CHRONIC, W/O HEMOR OR PERF (4) ESRD needing dialysis Code(s): N18.6 - END STAGE RENAL DISEASE Z99.2 - DEPENDENCE ON RENAL DIALYSIS
[2017-07-07] MEDS ORDERED: hydrALAZINE HCL 50 MG TABLET (FP) PO ONE (13:00)
[2017-07-07 13:33] LABS: BASOPHIL 1.2 % (0-2.0); EOSINOPHIL 4.3 % (0-4.5); MCH 30.8 pg (25.7-33.7); MCHC 32.6 g/dl (32.0-35.9); MEAN CELL VOLUME 94.5 fl (80-96); MEAN PLT VOLUME 8.8 fl (7.5-11.1); NEUTROPHILS 75.3 % (42.8-82.8); PLATELET COUNT 94 K/MM3 (134-434); RDW 19.2 % (11.9-15.9); WHITE BLOOD COUNT 4.3 K/mm3 (4.0-10.0)
[2017-07-07] MEDS: ISOSORBIDE MONONITRATE 30 MG TAB.SR.24H (FP) PO SCH (13:35)
--- NOTE | 2017-07-07 14:22 | PN ---
Physical Exam: SUBJECTIVE: Patient seen and examined No new events overnight. Patient has not had another melena or bright red stool per rectum since yesterday. OBJECTIVE: Vital Signs Period Temp Pulse Resp BP Sys/Hinds Pulse Ox Last 24 Hr 97 F-98 F 60-67 16-24 162-179/52-83 92-100 ENERAL: drowsy, and oriented, in no acute respiratory distress. HEAD: Normal with no signs of trauma. Palpable occipital node on L. EYES: Pupils equal, about 1mm, and reactive to light, extraocular movements intact, sclera anicteric, conjunctiva clear, not pale. EARS, NOSE, THROAT: Ears normal, nares patent, oropharynx clear without exudates. Moist mucous membranes. Missing teeth. Parotid fullness more on the L , not warm, not tender. NECK: Trachea central. No obvious swelling. Normal range of motion, supple without lymphadenopathy, JVD, or masses. Thyroid gland not palpable. LUNGS: Breath sounds equal, clear to auscultation bilaterally. No wheezes, and no crackles. No accessory muscle use. HEART: Regular rate and rhythm, normal S1 and S2 with3/6 SM RUSB and diastolic murmur LSB, rub or gallop. ABDOMEN: Soft, nontender, not distended, normoactive bowel sounds, no guarding, no rebound, no masses. No hepatomegaly or splenomegaly. firm circular 2mm palpable nodes in R inguinal area. GELACIO: Diaper was clean. No stool or blood seen. UPPER EXTREMITIES: Amputated R middle finger. 2+ pulses, warm, well-perfused. No cyanosis. No clubbing. No peripheral edema. LOWER EXTREMITIES: 2+ pulses, warm, well-perfused. No calf tenderness. No peripheral edema. NEUROLOGICAL: Drowsy. Normal speech. gait not observed. Laboratory Results - last 24 hr 07/05/17 07/06/17 07/06/17 22:26 01:43 04:36 WBC RBC Hgb Hct MCV MCH MCHC RDW Plt Count MPV Neutrophils % Lymphocytes % Monocytes % Eosinophils % Basophils % Sodium Potassium Chloride Carbon Dioxide Anion Gap BUN Creatinine POC Glucometer 77.03852 82.65671 [phone] Random Glucose Calcium Phosphorus Magnesium Carcinoembryonic Ag Hepatitis C Antibody 07/06/17 07/06/17 07/06/17 05:00 06:49 07:28 WBC RBC Hgb Hct MCV MCH MCHC RDW Plt Count MPV Neutrophils % Lymphocytes % Monocytes % Eosinophils % Basophils % Sodium Potassium Chloride Carbon Dioxide Anion Gap BUN Creatinine POC Glucometer [phone] Random Glucose Calcium Phosphorus Magnesium Carcinoembryonic Ag 4.2 Hepatitis C Antibody 0.1 07/06/17 07/06/17 07/06/17 13:00 15:27 17:30 WBC 4.3 RBC 3.03 L Hgb 9.5 L Hct 28.3 L MCV 93.3 MCH 31.5 MCHC 33.8 RDW 19.4 H Plt Count 103 L MPV 9.0 Neutrophils % Lymphocytes % Monocytes % Eosinophils % Basophils % Sodium Potassium Chloride Carbon Dioxide Anion Gap BUN Creatinine POC Glucometer 61.39420 [phone] Random Glucose Calcium Phosphorus Magnesium Carcinoembryonic Ag Hepatitis C Antibody 07/07/17 07/07/17 07/07/17 06:00 06:00 06:08 WBC 3.9 L RBC 3.02 L Hgb 9.4 L Hct 28.5 L MCV 94.3 MCH 31.2 MCHC 33.1 RDW 19.0 H Plt Count 95 L MPV 9.0 Neutrophils % Lymphocytes % Monocytes % Eosinophils % Basophils % Sodium 141 Potassium 4.0 D Chloride 104 Carbon Dioxide 29 D Anion Gap 8 BUN 36 H D Creatinine 4.4 H D POC Glucometer 141 Random Glucose 119 H Calcium 8.4 L Phosphorus 4.3 Magnesium 2.2 Carcinoembryonic Ag Hepatitis C Antibody 07/07/17 07/07/17 11:34 13:15 WBC 4.3 RBC 3.15 L Hgb 9.7 L Hct 29.8 L MCV 94.5 MCH 30.8 MCHC 32.6 RDW 19.2 H Plt Count 94 L MPV 8.8 Neutrophils % 75.3 Lymphocytes % 8.7 D Monocytes % 10.5 H Eosinophils % 4.3 Basophils % 1.2 Sodium Potassium Chloride Carbon Dioxide Anion Gap BUN Creatinine POC Glucometer 116 Random Glucose Calcium Phosphorus Magnesium Carcinoembryonic Ag Hepatitis C Antibody Active Medications Generic Name Dose Route Start Last Admin Trade Name Freq PRN Reason Stop Dose Admin Acetaminophen 325 mg 07/07/17 13:40 Tylenol - PO Q4H PRN FEVER OR PAIN Atorvastatin Calcium 20 mg 07/06/17 22:00 07/06/17 22:19 Lipitor - PO 20 mg HS NGOC Administration Carvedilol 12.5 mg 07/06/17 22:00 07/07/17 09:31 Coreg - PO 12.5 mg BID NGOC Administration Hydralazine HCl 50 mg 07/08/17 10:00 Apresoline - PO BID NGOC Pantoprazole Sodium 40 mg/ 100 mls @ 200 mls/hr 07/08/17 10:00 Sodium Chloride IVPB DAILY NG[facility] Isosorbide Mononitrate 30 mg 07/07/17 13:00 07/07/17 13:35 Imdur - PO 30 mg DAILY NG[facility] Administration ASSESSMENT/PLAN: 66 year old Male with PMHx significant for DM, HTN, HLD, CVA, CAD, ESRD, CHF, previous DVT, who frequents the hospital for pain medication, presented yesterday for a pain in his right neck and was observed to have passed significant amounts of bright red blood per rectum and to have had melena stools. #GI bleed: Patient had witnessed karma blood per rectum in ED then melena on floors Patient had been on Eliquis and had a HB drop from 11 to 7.8 Received 1unit FFp, 1unit PRBC, DDAVP and repeat H& H after transfusion and the frequently urgent EGD was done and showed no active bleed at the time but ulcers were seen as below: Likely upper- per EGD - Severe relux esophagitis, persistent large prepyloric and possible malignant gastric ulcer and multiple duodenal ulcers No Melena stools seen in diaper this am [id number] today Will monitor Resume hydralazine Resume nitrates Hold apaxiban Stop Pantoprazole drip Start IV pantoprazole 40mg daily Follow up #Neck pain: Tabs tylenol No opiates recommended at this time ID consult- for evolving parotitis with fat straddling Patient refusing the vancomycin #HTN Continue home Coreg 12.5 bid- hold if SBP<105 Resume hydralazine Resume nitrates #Hyperkalemia- resolved with dialysis Dialyis #ESRD dialysis #HF Coreg #DM No DM medications confirmed in pharmacy Insulin sliding scale #DVT Hold heparin (bleeding) SCDs both legs Hold ASA for now- will likely resume a week after discharge if patient is stable Discussed with Dr Rey -he says patient should not be put on anticoagulation for 3-4 weeks until he can get a repeat EGD. The ulcers are very likely to bleed otherwise. Plan not to restart eliquis- discussed with - risks and benefits of anticoagulation considering multiple ulcers, significant bleed, ESRD and recurrent bleeds compared to his risk for strokes or DVT/PE #FEN Hold IV fluids monitor electrolytes Resume soft foods #Dispo Will observe for any evidence of bleeding If stable will likely be discharged tomorrow to follow up with GI- D/W Dr Rey for likely malignant gastric ulcer see above Patient wants to continue with DR Garcia as outpatient Visit type - Emergency Visit Emergency Visit: Yes ED Registration Date: 07/04/17 Care time: The patient presented to the Emergency Department on the above date and was hospitalized for further evaluation of their emergent condition. - New Patient This patient is new to me today: No - Critical Care Critical Care patient: No - Discharge Referral Referred to [facility] Med P.C.: No
[2017-07-07] MEDS: ACETAMINOPHEN 325 MG TABLET (FP) PO PRN ×2 (16:15→21:09)
--- NOTE | 2017-07-07 16:35 | PN ---
Teaching Attending Note Name of Resident: Ursula Lewis ATTENDING PHYSICIAN STATEMENT I saw and evaluated the patient. I reviewed the resident's note and discussed the case with the resident. I agree with the resident's findings and plan as documented. SUBJECTIVE: no fever or chills. has no ABd pain. Has no bleeding today or last night ( last one yesterday Am ) OBJECTIVE: NAD, comfortable no facial droop. Neck with enlarged non tender L parotid gland, no increased warmth . MMM CV: RRR, 3/6 Dm at RUSB, and 3/6 SM at LLSB Abd: soft, NT, ND, Nl BS . in RLQ there a small ( 2x1cm) hard area palpated ( feels like metal ) . no tenderness . 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 - Hb has been stable - Eliquis and ASA on hold. Tried to have a discussion with patient about risks and benefits of AC , but he declined participating. - Need GI input, to whether AC ( eliquis and ASA ) are safe from GI stand point. - started diet 2- L parotitis. - Monitor off Abx 3- ESRD: HD today . hyperkalemia management with HD 4- H/o CHF:volume mgt with HD , due tomorrow 5- H/o DM: SSI , not hypoglycemic any more 6- Pain: will use tylenol only. Avoid narcotics. 7- H/o HTN: COnt coreg , resume hydralazine if he does not bleed and if his HB remains stable can be dc tomorrow . Need To decide on AC before Dc
--- NOTE | 2017-07-07 17:01 | PN ---
Progress Note, Physician History of Present Illness: Pt seen and examined at bedside. He is awake and alert. He is eager to go home. - Current Medication List Current Medications: Active Medications Acetaminophen (Tylenol -) 325 mg PO Q4H PRN PRN Reason: FEVER OR PAIN Last Admin: 07/07/17 16:15 Dose: 325 mg Atorvastatin Calcium (Lipitor -) 20 mg PO HS [facility] Last Admin: 07/06/17 22:19 Dose: 20 mg Carvedilol (Coreg -) 12.5 mg PO BID [facility] Last Admin: 07/07/17 09:31 Dose: 12.5 mg Hydralazine HCl (Apresoline -) 50 mg PO BID [facility] Pantoprazole Sodium 40 mg/ (Sodium Chloride) 100 mls @ 200 mls/hr IVPB DAILY [facility] Isosorbide Mononitrate (Imdur -) 30 mg PO DAILY [facility] Last Admin: 07/07/17 13:35 Dose: 30 mg - Objective Vital Signs: Vital Signs Temperature 97.4 F L 07/07/17 13:51 Pulse Rate 62 07/07/17 13:51 Respiratory Rate 20 07/07/17 13:51 Blood Pressure 162/52 07/07/17 13:51 O2 Sat by Pulse Oximetry (%) 92 L 07/06/17 21:00 Constitutional: Yes: Anxious Eyes: Yes: Conjunctiva Clear HENT: Yes: Atraumatic Neck: Yes: Supple Cardiovascular: Yes: S1, S2 Respiratory: Yes: CTA Bilaterally Gastrointestinal: Yes: Soft Genitourinary: Yes: WNL Musculoskeletal: Yes: WNL Edema: No Neurological: Yes: Oriented Labs: CBC, BMP 07/07/17 13:15 07/07/17 06:00 INR, PTT INR 1.17 (0.82-1.09) H 07/06/17 05:00 Problem List - Problems (1) ESRD needing dialysis Code(s): N18.6 - END STAGE RENAL DISEASE Z99.2 - DEPENDENCE ON RENAL DIALYSIS (2) End stage chronic kidney disease Code(s): N18.6 - END STAGE RENAL DISEASE Z99.2 - DEPENDENCE ON RENAL DIALYSIS (3) GI bleed Code(s): K92.2 - GASTROINTESTINAL HEMORRHAGE, UNSPECIFIED Assessment/Plan Current Medications Generic Name Dose Route Start Last Admin Trade Name Freq PRN Reason Stop Dose Admin Acetaminophen 325 mg 07/07/17 13:40 07/07/17 16:15 Tylenol - PO 325 mg Q4H PRN Administration FEVER OR PAIN Atorvastatin Calcium 20 mg 07/06/17 22:00 07/06/17 22:19 Lipitor - PO 20 mg HS NGOC Administration Carvedilol 12.5 mg 07/06/17 22:00 07/07/17 09:31 Coreg - PO 12.5 mg BID NG[facility] Administration Hydralazine HCl 50 mg 07/08/17 10:00 Apresoline - PO BID [facility] Pantoprazole Sodium 40 mg/ 100 mls @ 200 mls/hr 07/08/17 10:00 Sodium Chloride IVPB DAILY [facility] Isosorbide Mononitrate 30 mg 07/07/17 13:00 07/07/17 13:35 Imdur - PO 30 mg DAILY [facility] Administration Impression 1. ESRD 2. CAD 3. HTN 4. narcotic dependence 5. non compliance 6. pleural effusions 7. anemia 8. chest pain 9. DVT 10. GI Bleed Plan - will arrange for HD tomorrow - monitor hg - cont current meds - will follow - monitor bp Dr Campos
[2017-07-07 19:57] LABS: EOSINOPHIL 3.6 % (0-4.5); MCH 31.8 pg (25.7-33.7); MCHC 33.9 g/dl (32.0-35.9); MEAN CELL VOLUME 93.9 fl (80-96); MEAN PLT VOLUME 9.4 fl (7.5-11.1); PLATELET COUNT 99 K/MM3 (134-434); RDW 18.8 % (11.9-15.9); WHITE BLOOD COUNT 4.1 K/mm3 (4.0-10.0)
[2017-07-08 00:06] LABS: HEP B SURFACE AB Non Reactive (.)
[2017-07-08] MEDS: ACETAMINOPHEN 325 MG TABLET (FP) PO PRN ×3 (01:45→22:17)
--- NOTE | 2017-07-08 08:31 | PN ---
Physical Exam: SUBJECTIVE: Patient seen and examined Said he passed yellow/brown colored stools yesterday, no melena or karma blood Says he feels better this am and is scheduled for dialysis OBJECTIVE: Vital Signs Period Temp Pulse Resp BP Sys/Hinds Pulse Ox Last 24 Hr 97.3 F-97.8 F 60-66 16-20 144-178/52-76 95-97 GENERAL: drowsy, and oriented, in no acute respiratory distress. HEAD: Normal with no signs of trauma. Palpable occipital node on L. EYES: Pupils equal, about 1mm, and reactive to light, extraocular movements intact, sclera anicteric, conjunctiva clear, not pale. EARS, NOSE, THROAT: Ears normal, nares patent, oropharynx clear without exudates. Moist mucous membranes. Missing teeth. Parotid fullness more on the L , not warm, not tender. NECK: Trachea central. No obvious swelling. Normal range of motion, supple without lymphadenopathy, JVD, or masses. Thyroid gland not palpable. LUNGS: Breath sounds equal, clear to auscultation bilaterally. No wheezes, and no crackles. No accessory muscle use. HEART: Regular rate and rhythm, normal S1 and S2 with3/6 SM RUSB and diastolic murmur LSB, rub or gallop. ABDOMEN: Soft, nontender, not distended, normoactive bowel sounds, no guarding, no rebound, no masses. No hepatomegaly or splenomegaly. firm circular 2mm palpable nodes in R inguinal area. GELACIO: Diaper was clean. No stool or blood seen. UPPER EXTREMITIES: Amputated R middle finger. 2+ pulses, warm, well-perfused. No cyanosis. No clubbing. No peripheral edema. LOWER EXTREMITIES: 2+ pulses, warm, well-perfused. No calf tenderness. No peripheral edema. NEUROLOGICAL: Drowsy. Normal speech. gait not observed. Laboratory Results - last 24 hr 07/06/17 07/06/17 07/07/17 05:00 07:28 06:00 WBC RBC Hgb Hct MCV MCH MCHC RDW Plt Count MPV Neutrophils % Lymphocytes % Monocytes % Eosinophils % Basophils % Sodium 141 Potassium 4.0 D Chloride 104 Carbon Dioxide 29 D Anion Gap 8 BUN 36 H D Creatinine 4.4 H D POC Glucometer Random Glucose 119 H Calcium 8.4 L Phosphorus 4.3 Magnesium 2.2 Carcinoembryonic Ag 4.2 Gastrin 142 H Hep A IgM Ab Confirm Negative Hepatitis A Ab Total Positive H Hep Bs Antigen Negative Hep Bs Antibody Non reactive Hep B Core Total Ab Negative Hepatitis C Antibody 0.1 07/07/17 07/07/17 07/07/17 11:34 13:15 17:22 WBC 4.3 RBC 3.15 L Hgb 9.7 L Hct 29.8 L MCV 94.5 MCH 30.8 MCHC 32.6 RDW 19.2 H Plt Count 94 L MPV 8.8 Neutrophils % 75.3 Lymphocytes % 8.7 D Monocytes % 10.5 H Eosinophils % 4.3 Basophils % 1.2 Sodium Potassium Chloride Carbon Dioxide Anion Gap BUN Creatinine POC Glucometer 116 123 Random Glucose Calcium Phosphorus Magnesium Carcinoembryonic Ag Gastrin Hep A IgM Ab Confirm Hepatitis A Ab Total Hep Bs Antigen Hep Bs Antibody Hep B Core Total Ab Hepatitis C Antibody 07/07/17 19:00 WBC 4.1 RBC 2.80 L Hgb 8.9 L Hct 26.3 L MCV 93.9 MCH 31.8 MCHC 33.9 RDW 18.8 H Plt Count 99 L MPV 9.4 Neutrophils % 76.0 Lymphocytes % 8.6 Monocytes % 10.8 H Eosinophils % 3.6 Basophils % 1.0 Sodium Potassium Chloride Carbon Dioxide Anion Gap BUN Creatinine POC Glucometer Random Glucose Calcium Phosphorus Magnesium Carcinoembryonic Ag Gastrin Hep A IgM Ab Confirm Hepatitis A Ab Total Hep Bs Antigen Hep Bs Antibody Hep B Core Total Ab Hepatitis C Antibody Active Medications Generic Name Dose Route Start Last Admin Trade Name Freq PRN Reason Stop Dose Admin Acetaminophen 325 mg 07/07/17 13:40 07/08/17 01:45 Tylenol - PO 325 mg Q4H PRN Administration FEVER OR PAIN Atorvastatin Calcium 20 mg 07/06/17 22:00 07/07/17 21:10 Lipitor - PO 20 mg HS NGOC Administration Carvedilol 12.5 mg 07/06/17 22:00 07/07/17 21:10 Coreg - PO 12.5 mg BID NGOC Administration Epoetin Devin 6,000 units 07/08/17 17:03 Epogen - IVPUSH 07/08/17 17:04 ONCE ONE Hydralazine HCl 50 mg 07/08/17 10:00 Apresoline - PO BID [facility] Isosorbide Mononitrate 30 mg 07/07/17 13:00 07/07/17 13:35 Imdur - PO 30 mg DAILY [facility] Administration Pantoprazole Sodium 40 mg 07/08/17 10:00 Protonix - PO BID [facility] ASSESSMENT/PLAN: 66 year old Male with PMHx significant for DM, HTN, HLD, CVA, CAD, ESRD, CHF, previous DVT, who frequents the hospital for pain medication, presented yesterday for a pain in his right neck and was observed to have passed significant amounts of bright red blood per rectum and to have had melena stools. #GI bleed: No Melena or karma bleeding per rectum seen in diaper this am Hgb-8.6 Will monitor Cont hydralazine Cont nitrates Hold apaxiban Start Tabs pantoprazole 40mg bid Follow up Patient advised not to resume anticoagulation for 3-4 weeks till repeat EGD can be done as per discussion with Dr Encinas Patient may need surgery depending on findings on follow up #Neck pain: Tabs tylenol No opiates recommended at this time ID consult- for evolving parotitis with fat straddling Patient refusing the vancomycin #HTN Continue home Coreg 12.5 bid- hold if SBP<105 COnt hydralazine Cont nitrates #Hyperkalemia- resolved with dialysis Dialyis #ESRD dialysis #HF Coreg #DM No DM medications confirmed in pharmacy Insulin sliding scale #DVT Repeat duplex of both LE and UL to R/O DVT Hold heparin (bleeding) SCDs both legs Hold ASA for now Hold eliquis- #FEN Hold IV fluids monitor electrolytes Resume soft foods Visit type - Emergency Visit Emergency Visit: Yes ED Registration Date: 07/04/17 Care time: The patient presented to the Emergency Department on the above date and was hospitalized for further evaluation of their emergent condition. - New Patient This patient is new to me today: No - Critical Care Critical Care patient: No - Discharge Referral Referred to [facility] Med P.C.: No
--- NOTE | 2017-07-08 08:46 | PN ---
Teaching Attending Note Name of Resident: Ursula Lewis ATTENDING PHYSICIAN STATEMENT I saw and evaluated the patient. I reviewed the resident's note and discussed the case with the resident. I agree with the resident's findings and plan as documented. SUBJECTIVE: Patient is feeling well, wants to go home, no further bleed. OBJECTIVE: Vital Signs Temperature 97.8 F 07/08/17 07:57 Pulse Rate 66 07/08/17 07:57 Respiratory Rate 20 07/08/17 07:57 Blood Pressure 144/60 07/08/17 07:57 O2 Sat by Pulse Oximetry (%) 95 07/07/17 21:00 CBCD WBC 4.1 K/mm3 (4.0-10.0) 07/07/17 19:00 RBC 2.80 M/mm3 (4.00-5.60) L 07/07/17 19:00 Hgb 8.9 GM/dL (11.7-16.9) L 07/07/17 19:00 Hct 26.3 % (35.4-49) L 07/07/17 19:00 MCV 93.9 fl (80-96) 07/07/17 19:00 MCHC 33.9 g/dl (32.0-35.9) 07/07/17 19:00 RDW 18.8 % (11.9-15.9) H 07/07/17 19:00 Plt Count 99 K/MM3 (134-434) L 07/07/17 19:00 MPV 9.4 fl (7.5-11.1) 07/07/17 19:00 CMP Sodium 141 mmol/L (136-145) 07/07/17 06:00 Potassium 4.0 mmol/L (3.5-5.1) D 07/07/17 06:00 Chloride 104 mmol/L (98-107) 07/07/17 06:00 Carbon Dioxide 29 mmol/L (21-32) D 07/07/17 06:00 Anion Gap 8 (8-16) 07/07/17 06:00 BUN 36 mg/dL (7-18) H D 07/07/17 06:00 Creatinine 4.4 mg/dL (0.7-1.3) H D 07/07/17 06:00 Creat Clearance w eGFR 8.60 (>60) 07/05/17 07:00 Random Glucose 119 mg/dL (74-106) H 07/07/17 06:00 Calcium 8.4 mg/dL (8.5-10.1) L 07/07/17 06:00 Total Bilirubin 0.5 mg/dL (0.2-1.0) 07/05/17 07:00 AST 25 U/L (15-37) 07/05/17 07:00 ALT 21 U/L (12-78) 07/05/17 07:00 Alkaline Phosphatase 113 U/L (45-117) D 07/05/17 07:00 Total Protein 6.4 g/dl (6.4-8.2) 07/05/17 07:00 Albumin 3.0 g/dl (3.4-5.0) L 07/05/17 07:00 Current Medications Generic Name Dose Route Start Last Admin Trade Name Freq PRN Reason Stop Dose Admin Acetaminophen 325 mg 07/07/17 13:40 07/08/17 01:45 Tylenol - PO 325 mg Q4H PRN Administration FEVER OR PAIN Atorvastatin Calcium 20 mg 07/06/17 22:00 07/07/17 21:10 Lipitor - PO 20 mg HS NGOC Administration Carvedilol 12.5 mg 07/06/17 22:00 07/07/17 21:10 Coreg - PO 12.5 mg BID [facility] Administration Epoetin Devin 6,000 units 07/08/17 17:03 Epogen - IVPUSH 07/08/17 17:04 ONCE ONE Hydralazine HCl 50 mg 07/08/17 10:00 Apresoline - PO BID [facility] Isosorbide Mononitrate 30 mg 07/07/17 13:00 07/07/17 13:35 Imdur - PO 30 mg DAILY [facility] Administration Pantoprazole Sodium 40 mg 07/08/17 10:00 Protonix - PO BID [facility] Home Medications Medication Instructions Recorded Apixaban [Eliquis -] 2.5 mg PO BID #60 tablet 12/07/16 Aspirin [ASA -] 81 mg PO DAILY #0 tab.chew 12/07/16 Carvedilol [Coreg -] 12.5 mg PO BID #60 tablet 12/07/16 Cyclobenzaprine HCl [Flexeril 10 10 mg PO Q8H PRN #12 tablet 02/12/17 mg] Atorvastatin Ca [Lipitor] 20 mg PO HS #30 tablet 04/08/17 Gabapentin [Neurontin] 100 mg PO DAILY #30 capsule 04/08/17 Hydralazine HCl [Apresoline -] 50 mg PO BID #60 tablet 04/08/17 Isosorbide Mononitrate [Imdur -] 30 mg PO DAILY #30 tab.sr.24h 04/08/17 Sevelamer Carbonate [Renvela -] 800 mg PO TIDCM #90 tab 04/08/17 Tamsulosin HCl [Flomax -] 0.4 mg PO DAILY@0830 #30 capsule 04/08/17 Pantoprazole Sodium 40 mg PO DAILY 04/20/17 PE: per resident's note ASSESSMENT AND PLAN: 66 yo man with h/o ESRD on HD (,,Thu), CHF, CABG, PPM, DM, Right 3rd digit amputation, CAD s/p CABG and stents who presented to ER with Left neck pain and had a rectal bleed while in ER #S/p acute rectal bleed: s/p EGD , with non bleeding ulcers in esophagus , stomach and duodenum. s/p Protonix. - Eliquis and ASA on hold. As per GI; 's conversation to discontinue Eliquis and ASA for 3-4 weeks, and will have an EGD er AC. # ESRD: on HD , continue , management per Nephro. # H/o DM: SSI , not hypoglycemic any more # chronic Pain: will use tylenol only. Avoid narcotics. # H/o HTN: Cont coreg , resume hydralazine # Hx of left parotitis. # H/o CHF: stable will do duplex of upper and lower to r/o DVT.
[2017-07-08 09:55] LABS: EOSINOPHIL 4.7 % (0-4.5); MCH 30.6 pg (25.7-33.7); MCHC 32.2 g/dl (32.0-35.9); MEAN CELL VOLUME 94.7 fl (80-96); MEAN PLT VOLUME 9.1 fl (7.5-11.1); NEUTROPHILS 76.7 % (42.8-82.8); PLATELET COUNT 95 K/MM3 (134-434); RDW 19.2 % (11.9-15.9); WHITE BLOOD COUNT 3.9 K/mm3 (4.0-10.0)
[2017-07-08] MEDS ORDERED: PANTOPRAZOLE SODIUM 40 MG in SODIUM CHLORIDE 100 ML IVPB SCH (10:00)
[2017-07-08 10:58] LABS: ALBUMIN 3.1 g/dl (3.4-5.0); ALK PHOS 135 U/L (45-117); ANION GAP 13 (8-16); BILIRUBIN,TOTAL 0.7 mg/dL (0.2-1.0); CALCIUM 8.3 mg/dL (8.5-10.1); CO2 26 mmol/L (21-32); CREATININE 5.5 mg/dL (0.7-1.3); GLUCOSE,RANDOM 125 mg/dL (74-106); MAGNESIUM 2.2 mg/dL (1.8-2.4); PHOSPHOROUS 4.5 mg/dL (2.5-4.9); SGOT/AST 26 U/L (15-37); SGPT/ALT 20 U/L (12-78); TOT PROT 6.3 g/dl (6.4-8.2)
[2017-07-08] MEDS: hydrALAZINE HCL 50 MG TABLET (FP) PO SCH ×2 (12:47→22:10)
[2017-07-08] MEDS: PANTOPRAZOLE 40 MG TABLET (FP) PO SCH ×2 (12:48→22:10)
[2017-07-08] MEDS: CARVEDILOL 12.5 MG TABLET (FP) PO SCH ×2 (12:48→22:10)
[2017-07-08] MEDS: ISOSORBIDE MONONITRATE 30 MG TAB.SR.24H (FP) PO SCH (12:48)
--- NOTE | 2017-07-08 13:41 | PN ---
Progress Note, Physician History of Present Illness: Pt seen and examined at bedside. He is awake and alert. He says he wants to go home. He tolerated HD today. - Current Medication List Current Medications: Active Medications Acetaminophen (Tylenol -) 650 mg PO Q6H PRN PRN Reason: FEVER OR PAIN Atorvastatin Calcium (Lipitor -) 20 mg PO HS [facility] Last Admin: 07/07/17 21:10 Dose: 20 mg Carvedilol (Coreg -) 12.5 mg PO BID [facility] Last Admin: 07/08/17 12:48 Dose: 12.5 mg Epoetin Devin (Epogen -) 6,000 units IVPUSH ONCE ONE Stop: 07/08/17 17:04 Hydralazine HCl (Apresoline -) 50 mg PO BID [facility] Last Admin: 07/08/17 12:47 Dose: 50 mg Isosorbide Mononitrate (Imdur -) 30 mg PO DAILY [facility] Last Admin: 07/08/17 12:48 Dose: 30 mg Pantoprazole Sodium (Protonix -) 40 mg PO BID [facility] Last Admin: 07/08/17 12:48 Dose: 40 mg - Objective Vital Signs: Vital Signs Temperature 97.8 F 07/08/17 07:57 Pulse Rate 62 07/08/17 11:50 Respiratory Rate 18 07/08/17 11:50 Blood Pressure 132/64 07/08/17 11:50 O2 Sat by Pulse Oximetry (%) 95 07/07/17 21:00 Constitutional: Yes: Calm Eyes: Yes: Conjunctiva Clear HENT: Yes: Atraumatic Neck: Yes: Supple Cardiovascular: Yes: S1, S2 Respiratory: Yes: CTA Bilaterally Gastrointestinal: Yes: Soft Genitourinary: Yes: WNL Extremities: Yes: WNL Edema: No Neurological: Yes: Oriented Labs: CBC, BMP 07/08/17 08:30 07/08/17 08:30 INR, PTT INR 1.17 (0.82-1.09) H 07/06/17 05:00 Problem List - Problems (1) ESRD needing dialysis Code(s): N18.6 - END STAGE RENAL DISEASE Z99.2 - DEPENDENCE ON RENAL DIALYSIS (2) End stage chronic kidney disease Code(s): N18.6 - END STAGE RENAL DISEASE Z99.2 - DEPENDENCE ON RENAL DIALYSIS (3) GI bleed Code(s): K92.2 - GASTROINTESTINAL HEMORRHAGE, UNSPECIFIED Assessment/Plan Current Medications Generic Name Dose Route Start Last Admin Trade Name Freq PRN Reason Stop Dose Admin Acetaminophen 650 mg 07/08/17 13:11 Tylenol - PO Q6H PRN FEVER OR PAIN Atorvastatin Calcium 20 mg 07/06/17 22:00 07/07/17 21:10 Lipitor - PO 20 mg HS [facility] Administration Carvedilol 12.5 mg 07/06/17 22:00 07/08/17 12:48 Coreg - PO 12.5 mg BID [facility] Administration Epoetin Devin 6,000 units 07/08/17 17:03 Epogen - IVPUSH 07/08/17 17:04 ONCE ONE Hydralazine HCl 50 mg 07/08/17 10:00 07/08/17 12:47 Apresoline - PO 50 mg BID [facility] Administration Isosorbide Mononitrate 30 mg 07/07/17 13:00 07/08/17 12:48 Imdur - PO 30 mg DAILY [facility] Administration Pantoprazole Sodium 40 mg 07/08/17 10:00 07/08/17 12:48 Protonix - PO 40 mg BID [facility] Administration Impression 1. ESRD 2. CAD 3. HTN 4. narcotic dependence 5. non compliance 6. pleural effusions 7. anemia 8. chest pain 9. DVT 10. GI Bleed Plan - pt tolerated HD - cont current meds - care per primary team - epo for anemia - bp is stable Dr Campos
[2017-07-08] MEDS ORDERED: EPOETIN ALFA 2,000 UNITS/1 ML VIAL IVPUSH ONE (17:03)
[2017-07-08] MEDS: ATORVASTATIN CA 20 MG TABLET (FP) PO SCH (22:10)
[2017-07-08] MEDS ORDERED: PT OWN MED DRAWER 7, Y5N ONE (22:16)
--- NOTE | 2017-07-09 07:37 | PN ---
Physical Exam: SUBJECTIVE: Patient seen and examined OBJECTIVE: Vital Signs Period Temp Pulse Resp BP Sys/Hinds Pulse Ox Last 24 Hr 97.5 F-98.2 F 59-66 18-20 114-154/45-73 100-100 GENERAL: drowsy, and oriented, in no acute respiratory distress. HEAD: Normal with no signs of trauma. Palpable occipital node on L. EYES: Pupils equal, about 1mm, and reactive to light, extraocular movements intact, sclera anicteric, conjunctiva clear, not pale. EARS, NOSE, THROAT: Ears normal, nares patent, oropharynx clear without exudates. Moist mucous membranes. Missing teeth. Parotid fullness more on the L , not warm, not tender. NECK: Trachea central. No obvious swelling. Normal range of motion, supple without lymphadenopathy, JVD, or masses. Thyroid gland not palpable. LUNGS: Breath sounds equal, clear to auscultation bilaterally. No wheezes, and no crackles. No accessory muscle use. HEART: Regular rate and rhythm, normal S1 and S2 with3/6 SM RUSB and diastolic murmur LSB, rub or gallop. ABDOMEN: Soft, nontender, not distended, normoactive bowel sounds, no guarding, no rebound, no masses. No hepatomegaly or splenomegaly. firm circular 2mm palpable nodes in R inguinal area. GELACIO: Diaper was clean. No stool or blood seen. UPPER EXTREMITIES: Amputated R middle finger. 2+ pulses, warm, well-perfused. No cyanosis. No clubbing. No peripheral edema. LOWER EXTREMITIES: 2+ pulses, warm, well-perfused. No calf tenderness. No peripheral edema. NEUROLOGICAL: Drowsy. Normal speech. gait not observed. Laboratory Results - last 24 hr 07/08/17 07/08/17 07/08/17 06:34 08:30 08:30 WBC 3.9 L RBC 2.84 L Hgb 8.7 L Hct 26.9 L MCV 94.7 MCH 30.6 MCHC 32.2 RDW 19.2 H Plt Count 95 L MPV 9.1 Neutrophils % 76.7 Lymphocytes % 7.5 L Monocytes % 10.1 Eosinophils % 4.7 H Basophils % 1.0 Sodium 140 Potassium 4.2 Chloride 101 Carbon Dioxide 26 Anion Gap 13 BUN 40 H Creatinine 5.5 H D Creat Clearance w eGFR 10.42 POC Glucometer 126 Random Glucose 125 H Calcium 8.3 L Phosphorus 4.5 Magnesium 2.2 Total Bilirubin 0.7 D AST 26 ALT 20 Alkaline Phosphatase 135 H Total Protein 6.3 L Albumin 3.1 L 07/08/17 07/08/17 07/08/17 12:12 17:20 22:12 WBC RBC Hgb Hct MCV MCH MCHC RDW Plt Count MPV Neutrophils % Lymphocytes % Monocytes % Eosinophils % Basophils % Sodium Potassium Chloride Carbon Dioxide Anion Gap BUN Creatinine Creat Clearance w eGFR POC Glucometer 148 106 122 Random Glucose Calcium Phosphorus Magnesium Total Bilirubin AST ALT Alkaline Phosphatase Total Protein Albumin 07/09/17 06:35 WBC RBC Hgb Hct MCV MCH MCHC RDW Plt Count MPV Neutrophils % Lymphocytes % Monocytes % Eosinophils % Basophils % Sodium Potassium Chloride Carbon Dioxide Anion Gap BUN Creatinine Creat Clearance w eGFR POC Glucometer 93 Random Glucose Calcium Phosphorus Magnesium Total Bilirubin AST ALT Alkaline Phosphatase Total Protein Albumin Active Medications Generic Name Dose Route Start Last Admin Trade Name Freq PRN Reason Stop Dose Admin Acetaminophen 650 mg 07/08/17 13:11 07/08/17 22:17 Tylenol - PO 650 mg Q6H PRN Administration FEVER OR PAIN Atorvastatin Calcium 20 mg 07/06/17 22:00 07/08/17 22:10 Lipitor - PO 20 mg HS NGOC Administration Carvedilol 12.5 mg 07/06/17 22:00 07/08/17 22:10 Coreg - PO 12.5 mg BID NGOC Administration Epoetin Devin 6,000 units 07/08/17 17:03 Epogen - IVPUSH 07/08/17 17:04 ONCE ONE Hydralazine HCl 50 mg 07/08/17 10:00 07/08/17 22:10 Apresoline - PO 50 mg BID NGOC Administration Isosorbide Mononitrate 30 mg 07/07/17 13:00 07/08/17 12:48 Imdur - PO 30 mg DAILY NGOC Administration Pantoprazole Sodium 40 mg 07/08/17 10:00 07/08/17 22:10 Protonix - PO 40 mg BID NGOC Administration ASSESSMENT/PLAN: 66 year old Male with PMHx significant for DM, HTN, HLD, CVA, CAD, ESRD, CHF, previous DVT, who frequents the hospital for pain medication, presented yesterday for a pain in his right neck and was observed to have passed significant amounts of bright red blood per rectum and to have had melena stools. #GI bleed: No Melena or karma bleeding per rectum seen in diaper this am Hgb-8.6 Will monitor Cont hydralazine Cont nitrates Hold apaxiban Start Tabs pantoprazole 40mg bid Follow up Patient advised not to resume anticoagulation for 3-4 weeks till repeat EGD can be done as per discussion with Dr Encinas Patient may need surgery depending on findings on follow up #DVT Repeat duplex of both LE and UL done on 07/09-Showed venous thrombosis of R IJV and R basilic V Consult was put to Vascular Surgery- Dr Moore and I discussed with him- He said the R IJV and R basilic vein thrombosis are old occlusions that he knows about that have been on for a long time. Considering Mr Sanchez's risk for massive GI bleed as in this admission, Dr Moore will not advise for him to be anticoagulated. He is recommending that Mr Sanchez follow up as an outpatient after discharge. Hold heparin (bleeding) SCDs both legs Hold ASA for now Hold eliquis- #Neck pain: Tabs tylenol No opiates recommended at this time ID consult- for evolving parotitis with fat straddling Patient refusing the vancomycin #HTN Continue home Coreg 12.5 bid- hold if SBP<105 COnt hydralazine Cont nitrates #Hyperkalemia- resolved with dialysis Dialyis #ESRD dialysis #HF Coreg #DM No DM medications confirmed in pharmacy Insulin sliding scale #FEN Hold IV fluids monitor electrolytes Resume soft foods
[2017-07-09] MEDS: CARVEDILOL 12.5 MG TABLET (FP) PO SCH (10:41)
[2017-07-09] MEDS: hydrALAZINE HCL 50 MG TABLET (FP) PO SCH (10:42)
[2017-07-09] MEDS: PANTOPRAZOLE 40 MG TABLET (FP) PO SCH (10:42)
[2017-07-09] MEDS: ISOSORBIDE MONONITRATE 30 MG TAB.SR.24H (FP) PO SCH (10:42)
[2017-07-09] MEDS: ACETAMINOPHEN 325 MG TABLET (FP) PO PRN (10:47)
--- NOTE | 2017-07-09 11:49 | PN ---
Teaching Attending Note Name of Resident: Ursula Lewis ATTENDING PHYSICIAN STATEMENT I saw and evaluated the patient. I reviewed the resident's note and discussed the case with the resident. I agree with the resident's findings and plan as documented. SUBJECTIVE: Patient is feeling better, with no acute distress. Denies having any pain today. OBJECTIVE: Vital Signs Temperature 98.1 F 07/09/17 06:00 Pulse Rate 62 07/09/17 11:29 Respiratory Rate 20 07/09/17 06:00 Blood Pressure 126/62 07/09/17 06:00 O2 Sat by Pulse Oximetry (%) 93 L 07/09/17 11:29 CBCD WBC 3.9 K/mm3 (4.0-10.0) L 07/08/17 08:30 RBC 2.84 M/mm3 (4.00-5.60) L 07/08/17 08:30 Hgb 8.7 GM/dL (11.7-16.9) L 07/08/17 08:30 Hct 26.9 % (35.4-49) L 07/08/17 08:30 MCV 94.7 fl (80-96) 07/08/17 08:30 MCHC 32.2 g/dl (32.0-35.9) 07/08/17 08:30 RDW 19.2 % (11.9-15.9) H 07/08/17 08:30 Plt Count 95 K/MM3 (134-434) L 07/08/17 08:30 MPV 9.1 fl (7.5-11.1) 07/08/17 08:30 CMP Sodium 140 mmol/L (136-145) 07/08/17 08:30 Potassium 4.2 mmol/L (3.5-5.1) 07/08/17 08:30 Chloride 101 mmol/L (98-107) 07/08/17 08:30 Carbon Dioxide 26 mmol/L (21-32) 07/08/17 08:30 Anion Gap 13 (8-16) 07/08/17 08:30 BUN 40 mg/dL (7-18) H 07/08/17 08:30 Creatinine 5.5 mg/dL (0.7-1.3) H D 07/08/17 08:30 Creat Clearance w eGFR 10.42 (>60) 07/08/17 08:30 Random Glucose 125 mg/dL (74-106) H 07/08/17 08:30 Calcium 8.3 mg/dL (8.5-10.1) L 07/08/17 08:30 Total Bilirubin 0.7 mg/dL (0.2-1.0) D 07/08/17 08:30 AST 26 U/L (15-37) 07/08/17 08:30 ALT 20 U/L (12-78) 07/08/17 08:30 Alkaline Phosphatase 135 U/L (45-117) H 07/08/17 08:30 Total Protein 6.3 g/dl (6.4-8.2) L 07/08/17 08:30 Albumin 3.1 g/dl (3.4-5.0) L 07/08/17 08:30 Current Medications Generic Name Dose Route Start Last Admin Trade Name Freq PRN Reason Stop Dose Admin Acetaminophen 650 mg 07/08/17 13:11 07/09/17 10:47 Tylenol - PO 650 mg Q6H PRN Administration FEVER OR PAIN Atorvastatin Calcium 20 mg 07/06/17 22:00 07/08/17 22:10 Lipitor - PO 20 mg HS NGOC Administration Carvedilol 12.5 mg 07/06/17 22:00 07/09/17 10:41 Coreg - PO 12.5 mg BID NGOC Administration Epoetin Devin 6,000 units 07/08/17 17:03 Epogen - IVPUSH 07/08/17 17:04 ONCE ONE Hydralazine HCl 50 mg 07/08/17 10:00 07/09/17 10:42 Apresoline - PO 50 mg BID NGOC Administration Isosorbide Mononitrate 30 mg 07/07/17 13:00 07/09/17 10:42 Imdur - PO 30 mg DAILY NGOC Administration Pantoprazole Sodium 40 mg 07/08/17 10:00 07/09/17 10:42 Protonix - PO 40 mg BID NGOC Administration Home Medications Medication Instructions Recorded RX: Carvedilol [Coreg -] 12.5 mg PO BID #60 tablet 12/07/16 RX: Cyclobenzaprine HCl [Flexeril 10 mg PO Q8H PRN #12 tablet 02/12/17 10 mg] RX: Atorvastatin Ca [Lipitor] 20 mg PO HS #30 tablet 04/08/17 RX: Gabapentin [Neurontin] 100 mg PO DAILY #30 capsule 04/08/17 RX: Hydralazine HCl [Apresoline -] 50 mg PO BID #60 tablet 04/08/17 RX: Isosorbide Mononitrate [Imdur 30 mg PO DAILY #30 tab.sr.24h 04/08/17 -] RX: Sevelamer Carbonate [Renvela -] 800 mg PO TIDCM #90 tab 04/08/17 RX: Tamsulosin HCl [Flomax -] 0.4 mg PO DAILY@0830 #30 capsule 04/08/17 RX: Pantoprazole Sodium 40 mg PO DAILY 04/20/17 Upper duplex of lower extremities: Right internal Jugular vein thrombosis Right upper basilic vein thrombosis. Endoscopy result: Large non bleeding ulcers, Prominent rugae with submucosal hemorrhage in the fundus. As per report. PE: per resident's note. ASSESSMENT AND PLAN: 66 yo man with h/o ESRD on HD (,,Thu), CHF, CABG, PPM, DM, Right 3rd digit amputation, CAD s/p CABG and stents who presented to ER with Left neck pain and had a rectal bleed while in ER #S/p acute rectal bleed: s/p EGD , the result as above, with non bleeding ulcers in esophagus , stomach and duodenum. s/p Protonix IV, will continue PO protonix 40mg po bid, follow with a GI within a month for further w/u. Eliquis and ASA will be discontinued for now as per GI; 's conversation to discontinue Eliquis and ASA for 3-4 weeks, and will repeat the EGD as an outpatient. 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 As per : Pt with right IJ dvt -- from repeated permacath placements. Right basilic vein clot -- superficial clot. Pt does not need anticoagulation. all clots chronic. # ESRD: on HD , continue , management per Nephro. # H/o DM: SSI , not hypoglycemic any more # chronic Pain: will use tylenol only. Avoid narcotics. # H/o HTN: Cont coreg , resume hydralazine # Hx of left parotitis. # H/o CHF: stable duplex of lower extremities negative for DVT discharge patient home today
--- NOTE | 2017-07-09 15:19 | PN ---
Progress Note, Physician History of Present Illness: Pt seen and examined at bedside. He is awake and alert. He denies shortness of breath. - Current Medication List Current Medications: Active Medications Acetaminophen (Tylenol -) 650 mg PO Q6H PRN PRN Reason: FEVER OR PAIN Last Admin: 07/09/17 10:47 Dose: 650 mg Atorvastatin Calcium (Lipitor -) 20 mg PO HS [facility] Last Admin: 07/08/17 22:10 Dose: 20 mg Carvedilol (Coreg -) 12.5 mg PO BID [facility] Last Admin: 07/09/17 10:41 Dose: 12.5 mg Epoetin Devin (Epogen -) 6,000 units IVPUSH ONCE ONE Stop: 07/08/17 17:04 Hydralazine HCl (Apresoline -) 50 mg PO BID [facility] Last Admin: 07/09/17 10:42 Dose: 50 mg Isosorbide Mononitrate (Imdur -) 30 mg PO DAILY [facility] Last Admin: 07/09/17 10:42 Dose: 30 mg Pantoprazole Sodium (Protonix -) 40 mg PO BID [facility] Last Admin: 07/09/17 10:42 Dose: 40 mg - Objective Vital Signs: Vital Signs Temperature 97.7 F 07/09/17 14:29 Pulse Rate 62 07/09/17 11:29 Respiratory Rate 18 07/09/17 10:00 Blood Pressure 122/53 07/09/17 10:00 O2 Sat by Pulse Oximetry (%) 93 L 07/09/17 11:29 Constitutional: Yes: Calm Eyes: Yes: Conjunctiva Clear HENT: Yes: Atraumatic Neck: Yes: Supple Cardiovascular: Yes: S1, S2 Respiratory: Yes: CTA Bilaterally Gastrointestinal: Yes: Soft Genitourinary: Yes: WNL Musculoskeletal: Yes: Muscle Weakness Edema: No Neurological: Yes: Oriented Psychiatric: Yes: Oriented Labs: CBC, BMP 07/08/17 08:30 07/08/17 08:30 INR, PTT INR 1.17 (0.82-1.09) H 07/06/17 05:00 Problem List - Problems (1) ESRD needing dialysis Code(s): N18.6 - END STAGE RENAL DISEASE Z99.2 - DEPENDENCE ON RENAL DIALYSIS (2) End stage chronic kidney disease Code(s): N18.6 - END STAGE RENAL DISEASE Z99.2 - DEPENDENCE ON RENAL DIALYSIS (3) GI bleed Code(s): K92.2 - GASTROINTESTINAL HEMORRHAGE, UNSPECIFIED Assessment/Plan Current Medications Generic Name Dose Route Start Last Admin Trade Name Freq PRN Reason Stop Dose Admin Acetaminophen 650 mg 07/08/17 13:11 07/09/17 10:47 Tylenol - PO 650 mg Q6H PRN Administration FEVER OR PAIN Atorvastatin Calcium 20 mg 07/06/17 22:00 07/08/17 22:10 Lipitor - PO 20 mg HS NGOC Administration Carvedilol 12.5 mg 07/06/17 22:00 07/09/17 10:41 Coreg - PO 12.5 mg BID NGOC Administration Epoetin Devin 6,000 units 07/08/17 17:03 Epogen - IVPUSH 07/08/17 17:04 ONCE ONE Hydralazine HCl 50 mg 07/08/17 10:00 07/09/17 10:42 Apresoline - PO 50 mg BID NGOC Administration Isosorbide Mononitrate 30 mg 07/07/17 13:00 07/09/17 10:42 Imdur - PO 30 mg DAILY NGOC Administration Pantoprazole Sodium 40 mg 07/08/17 10:00 07/09/17 10:42 Protonix - PO 40 mg BID NGOC Administration Impression 1. ESRD 2. CAD 3. HTN 4. narcotic dependence 5. non compliance 6. pleural effusions 7. anemia 8. chest pain 9. DVT 10. GI Bleed Plan - will arrange for HD in am - doppler reviewed - cont current meds - care per primary team - epogen for anemia - bp is stable Dr Campos
--- NOTE | 2017-07-09 16:42 | DS ---
Physical Exam: SUBJECTIVE: Patient seen and examined No new complaint. Has no more blood in stool. OBJECTIVE: Vital Signs Period Temp Pulse Resp BP Sys/Hinds Pulse Ox Last 24 Hr 97.7 F-98.2 F 59-62 18-20 114-126/51-62 93-100 PHYSICAL EXAM GENERAL: drowsy, and oriented, in no acute respiratory distress. HEAD: Normal with no signs of trauma. Palpable occipital node on L. EYES: Pupils equal, about 1mm, and reactive to light, extraocular movements intact, sclera anicteric, conjunctiva clear, not pale. EARS, NOSE, THROAT: Ears normal, nares patent, oropharynx clear without exudates. Moist mucous membranes. Missing teeth. Parotid fullness more on the L , not warm, not tender. NECK: Trachea central. No obvious swelling. Normal range of motion, supple without lymphadenopathy, JVD, or masses. Thyroid gland not palpable. LUNGS: Breath sounds equal, clear to auscultation bilaterally. No wheezes, and no crackles. No accessory muscle use. HEART: Regular rate and rhythm, normal S1 and S2 with3/6 SM RUSB and diastolic murmur LSB, rub or gallop. ABDOMEN: Soft, nontender, not distended, normoactive bowel sounds, no guarding, no rebound, no masses. No hepatomegaly or splenomegaly. firm circular 2mm palpable nodes in R inguinal area. GELACIO: Diaper was clean. No stool or blood seen. UPPER EXTREMITIES: Amputated R middle finger. 2+ pulses, warm, well-perfused. No cyanosis. No clubbing. No peripheral edema. LOWER EXTREMITIES: 2+ pulses, warm, well-perfused. No calf tenderness. No peripheral edema. NEUROLOGICAL: Drowsy. Normal speech. gait not observed. LABS Laboratory Results - last 24 hr 07/08/17 07/08/17 07/08/17 12:12 17:20 22:12 POC Glucometer 148 106 122 07/09/17 06:35 POC Glucometer 93 HOSPITAL COURSE: Date of Admission:07/04/17 Date of Discharge: 07/09/17 66 year old Male with PMHx significant for DM, HTN, HLD, CVA, CAD, ESRD, CHF, previous DVT, on eliquis and ASA, who frequents the hospital seeking pain medication, presented for a pain in his neck and was observed to have passed significant amounts of bright red blood per rectum and later seen to pass melena stools. Initially his H & H dropped from 11.8 to 7.7 and he received 1 unit of Platelets, 1 unit of FFP, DDAVP. erythropoeitin, prononix drip. He had an urgent EGD that showed multiple ulcers in the stomach and duodenum. He was therefore advised to be off anticoagulation until he can get a repeat EGD. The risks and benefits of anticoagulation considering his recent GI bleed were explained to him and his . Duplex scan of the both upper and lower limbs did not show any venous thrombosis in the lower limbs, but an old existing well known right IJ dvt -- from repeated permacath placements in a patient known to vascular surgery service. Pt shown to have with Right basilic vein clot -- superficial clot. DVT Hold ASA for now Hold eliquis- Neck pain: No acute problems noted on imaging Tabs tylenol HTN Continue home Coreg 12.5 bid- hold if SBP<105 COnt hydralazine Cont nitrates Hyperkalemia- resolved with dialysis ESRD- dialysis HF-Coreg DM-No DM medications confirmed in pharmacy Pt does not need anticoagulation currently in view of risks of bleeding and because his DVT is chronic Per Dr Moore for Mr Sanchez follow up as an outpatient after discharge. Patient advised not to resume anticoagulation for 3-4 weeks till repeat EGD can be done as per discussion with Dr Encinas Minutes to complete discharge: 50 Discharge Summary Reason For Visit: GASTROINTESTINAL HEMORRHAGE, ESRD Current Active Problems Chronic pain (Acute) GI bleed (Acute) SVC syndrome (Acute) Sore throat (viral) (Acute) Swollen arm (Acute) URI (upper respiratory infection) (Acute) Acute hyperkalemia (Chronic) BPH (benign prostatic hypertrophy) (Chronic) CAD (coronary artery disease) (Chronic) Chronic pain disorder (Chronic) DVT (deep venous thrombosis) (Chronic) Dependency on pain medication (Chronic) Diabetes (Chronic) Diverticulosis (Chronic) Drug-seeking behavior (Chronic) Duodenal ulcer (Chronic) ESRD needing dialysis (Chronic) End stage chronic kidney disease (Chronic) Fluid overload (Chronic) Gastric ulcer (Chronic) Hematoma (Chronic) Hx of CABG (Chronic) Hyperlipidemia (Chronic) Hypertension (Chronic) ICD (implantable cardioverter-defibrillator) in place (Chronic) Mastoiditis (Chronic) Noncompliance of patient with renal dialysis (Chronic) PAF (paroxysmal atrial fibrillation) (Chronic) PVD (peripheral vascular disease) (Chronic) Parotid gland enlargement (Chronic) Type 2 diabetes mellitus (Chronic) Condition: Improved - Instructions Diet, Activity, Other Instructions: You came in complaining about neck pain and had tests that did not show any new problem We gave you antibiotics for swelling of your salivary glands but you refused the medication While you were in the ED you started to bleed from your rectum You were transfused and given other medications to stop the bleeding You also had an emergency endoscopy that showed you have ulcers in your stomach and duodenum that could have caused the bleed You had to be taken off your blood thinners- eliquis and ASA because of the risk of bleeding again That risk is being weighed against the fact that you have had clots with blockage of vessels before and could be at risk of a stroke or blockage of your lungs The risks of not continuing with a blood thinner were discussed with you and your You will need to follow up with vascular surgery in a week about the clots you have and could have You need to follow up your GI doctor about the ulcers in a week Will need repeat endoscopy in three - 4 weeks You need to follow up with your primary doctor to manage your hypertension, diabetes and other conditions You will need to follow up with your kidney doctor and continue with dialysis If you feel you are not getting better, or your symptoms worsen, go to see your primary care doctor immediately or go to the nearest emergency room Referrals: Wu Garcia MD [Staff Physician] - 1 Week (Massive upper GI bleed with Gastric and duod ulcers) Clay Moore MD [Staff Physician] - 1 Week (Venous thrombosis of RIJV and Basilic v off AC) Yrn Torres MD [Primary Care Provider] - 1 Week (Post hospitalization for upper GI bleed for HTN, DM ) Disposition: HOME - Home Medications Comprehensive Discharge Medication List: Ambulatory Orders Carvedilol [Coreg -] 12.5 mg PO BID #60 tablet 12/07/16 Cyclobenzaprine HCl [Flexeril 10 mg] 10 mg PO Q8H PRN #12 tablet 02/12/17 Atorvastatin Ca [Lipitor] 20 mg PO HS #30 tablet 04/08/17 Gabapentin [Neurontin] 100 mg PO DAILY #30 capsule 04/08/17 Hydralazine HCl [Apresoline -] 50 mg PO BID #60 tablet 04/08/17 Isosorbide Mononitrate [Imdur -] 30 mg PO DAILY #30 tab.sr.24h 04/08/17 Sevelamer Carbonate [Renvela -] 800 mg PO TIDCM #90 tab 04/08/17 Tamsulosin HCl [Flomax -] 0.4 mg PO DAILY@0830 #30 capsule 04/08/17 Pantoprazole Sodium 40 mg PO DAILY 04/20/17 This patient is new to me today: No Emergency Visit: Yes ED Registration Date: 07/04/17 Care time: The patient presented to the Emergency Department on the above date and was hospitalized for further evaluation of their emergent condition. Critical Care patient: No - Discharge Referral Referred to [facility] Med P.C.: No
--- NOTE | 2017-07-09 17:05 | PN ---
Progress Note (short form) - Note Progress Note: Vascular Surgery Pt well known to vascular surgery service. Pt with right IJ dvt -- from repeated permacath placements. Right basilic vein clot -- superficial clot. Pt does not need anticoagulation. all clots chronic. Basilic vein svt. Clay Moore DO
[2017-07-09 18:58] VITALS: BP 106/52; PULSE 70; TEMP 98.1
[2017-07-10] MEDS ORDERED: EPOETIN ALFA 2,000 UNITS/1 ML VIAL IVPUSH ONE (15:19)
== END 2017-07-09 20:35 | disposition home or self-care (01) | DRG 377 ==
LOC: JER 20:47 → JERBED 07-04 10:54 → J6S 07-04 13:35 → JICU 07-05 16:25 → J7W 07-06 18:16
PROVIDERS: ADMIT Internal Medicine; ATTEND Internal Medicine
PROC: 30233R1 Transfusion of Nonautologous Platelets into Peripheral Vein, Percutaneous Approach (ICD-10-PCS; 2017-07-04)
PROC: 30233K1 Transfusion of Nonautologous Frozen Plasma into Peripheral Vein, Percutaneous Approach (ICD-10-PCS; 2017-07-05)
PROC: 0DJ08ZZ Inspection of Upper Intestinal Tract, Via Natural or Artificial Opening Endoscopic (ICD-10-PCS; principal; 2017-07-05 15:46)
PROC: 5A1D00Z (ICD-10-PCS; 2017-07-08)
DX: K25.4 Chronic or unspecified gastric ulcer with hemorrhage (principal); N18.6 End stage renal disease; I13.2 Hypertensive heart and chronic kidney disease with heart failure and with stage 5 chronic kidney disease, or end stage renal disease; N17.9 Acute kidney failure, unspecified; I42.9 Cardiomyopathy, unspecified; I50.22 Chronic systolic (congestive) heart failure; D62 Acute posthemorrhagic anemia; I82.C21 Chronic embolism and thrombosis of right internal jugular vein; I82.711 Chronic embolism and thrombosis of superficial veins of right upper extremity; K26.9 Duodenal ulcer, unspecified as acute or chronic, without hemorrhage or perforation; K21.0 Gastro-esophageal reflux disease with esophagitis; K44.9 Diaphragmatic hernia without obstruction or gangrene; R07.9 Chest pain, unspecified; Z95.5 Presence of coronary angioplasty implant and graft; Z95.1 Presence of aortocoronary bypass graft; E11.22 Type 2 diabetes mellitus with diabetic chronic kidney disease; Z99.2 Dependence on renal dialysis; N40.0 Benign prostatic hyperplasia without lower urinary tract symptoms; E78.00 Pure hypercholesterolemia, unspecified; F41.9 Anxiety disorder, unspecified; Z87.891 Personal history of nicotine dependence; J06.9 Acute upper respiratory infection, unspecified; G89.4 Chronic pain syndrome; Z86.73 Personal history of transient ischemic attack (TIA), and cerebral infarction without residual deficits; I25.10 Atherosclerotic heart disease of native coronary artery without angina pectoris; Z86.718 Personal history of other venous thrombosis and embolism; Z79.01 Long term (current) use of anticoagulants; I48.0 Paroxysmal atrial fibrillation; Z89.021 Acquired absence of right finger(s); K11.23 Chronic sialoadenitis; E11.649 Type 2 diabetes mellitus with hypoglycemia without coma; I34.0 Nonrheumatic mitral (valve) insufficiency; E87.5 Hyperkalemia; Z91.15 Patient's noncompliance with renal dialysis
CPT/HCPCS: 36415; 36430; 70360-TC; 70490-TC; 71010-TC; 74000-TC; 80048; 80053; 82378; 82565; 82941; 83735; 84100; 84132; 84520; 85025; 85027; 85610; 85730; 86704; 86706; 86708; 86803; 86850; 86900; 86901; 86922; 87040; 87070; 87340; 87430; 93005; 93010; 93970-TC; 94760; 97161-GP; 99284-25; G0480; J0885; J2597; P9017; P9034; P9038; P9058

== ENCOUNTER 2017-07-18 03:36 | Emergency (ER) | payer OTHER ==
[2017-07-18 03:47] VITALS: BMI 25.6
[2017-07-18 04:29] LABS: BASOPHIL 0.4 % (0-2.0); EOSINOPHIL 7.9 % (0-4.5); MCH 31.5 pg (25.7-33.7); MCHC 32.7 g/dl (32.0-35.9); MEAN CELL VOLUME 96.5 fl (80-96); MEAN PLT VOLUME 8.8 fl (7.5-11.1); NEUTROPHILS 69.3 % (42.8-82.8); PLATELET COUNT 179 K/MM3 (134-434); RDW 18.9 % (11.9-15.9); WHITE BLOOD COUNT 4.3 K/mm3 (4.0-10.0)
[2017-07-18 04:36] LABS: INR 1.16 (0.82-1.09); PROTHROMBIN TIME (PATIENT) 12.8 SEC (9.98-11.88)
[2017-07-18 04:46] LABS: ALBUMIN 3.1 g/dl (3.4-5.0); ANION GAP 11 (8-16); BILIRUBIN,TOTAL 0.4 mg/dL (0.2-1.0); CALCIUM 8.7 mg/dL (8.5-10.1); CO2 24 mmol/L (21-32); CREATININE 4.9 mg/dL (0.7-1.3); GLUCOSE,RANDOM 104 mg/dL (74-106); SGOT/AST 32 U/L (15-37); SGPT/ALT 24 U/L (12-78)
[2017-07-18] MEDS ORDERED: ACETAMINOPHEN 325 MG TABLET (FP) PO ONE (04:47)
[2017-07-18 04:49] LABS: ALK PHOS 151 U/L (45-117); CPK 145 IU/L (39-308); TROPONIN I 0.05 ng/ml (0.00-0.05)
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
--- NOTE | 2017-07-18 06:16 | PDOC ---
Attending Attestation - Resident Resident Name: Sin Morley - ED Attending Attestation I have performed the following: I have examined & evaluated the patient, The case was reviewed & discussed with the resident, I agree w/resident's findings & plan, Exceptions are as noted - HPI HPI: 07/18/17 06:12 66 yo male DM, HTN, CVA, CAD, ESRD TThS dialysis, CHF, DVT and pain medication seeking behavior [facility] ed visits, here today complaining of bilateral knee pain for the past week. pt denies new injury. was recently admitted for GI bleed. no current other complaints. no new bleeding. did accidently scratch his forehead. however. - Physicial Exam PE: 07/18/17 06:14 awake alert lungs clear heart rrr no mrg. abd soft nt nd. abd soft nt nd. abrasion forehead. no active bleeding. nuero alert oriented - Medical Decision Making 07/18/17 06:16 plan pain control. reassess labs. david patel h/h stable. jorge home.
[2017-07-18 07:53] VITALS: BP 168/78; PULSE 64; TEMP 98.1
== END 2017-07-18 07:53 | disposition home or self-care (01) ==
LOC: JER 03:36
DX: M79.604 Pain in right leg (principal); M79.605 Pain in left leg; I12.0 Hypertensive chronic kidney disease with stage 5 chronic kidney disease or end stage renal disease; E11.22 Type 2 diabetes mellitus with diabetic chronic kidney disease; N18.6 End stage renal disease; Z99.2 Dependence on renal dialysis; I25.10 Atherosclerotic heart disease of native coronary artery without angina pectoris; I50.9 Heart failure, unspecified; D64.9 Anemia, unspecified; E78.00 Pure hypercholesterolemia, unspecified; Z86.73 Personal history of transient ischemic attack (TIA), and cerebral infarction without residual deficits; I82.409 Acute embolism and thrombosis of unspecified deep veins of unspecified lower extremity; F41.9 Anxiety disorder, unspecified; N40.0 Benign prostatic hyperplasia without lower urinary tract symptoms; Z95.0 Presence of cardiac pacemaker; Z95.1 Presence of aortocoronary bypass graft; Z95.5 Presence of coronary angioplasty implant and graft
CPT/HCPCS: 36415; 80053; 84484; 85025; 85610; 99282-25

== ENCOUNTER 2017-07-26 22:30 | Emergency (ER) | payer OTHER ==
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
[2017-07-26 23:52] VITALS: BMI 21.9
[2017-07-27 00:43] LABS: BASOPHIL 0.7 % (0-2.0); EOSINOPHIL 3.2 % (0-4.5); MCH 30.7 pg (25.7-33.7); MCHC 32.4 g/dl (32.0-35.9); MEAN CELL VOLUME 94.7 fl (80-96); NEUTROPHILS 71.1 % (42.8-82.8); PLATELET COUNT 173 K/MM3 (134-434); RDW 20.9 % (11.9-15.9); WHITE BLOOD COUNT 4.7 K/mm3 (4.0-10.0)
[2017-07-27] MEDS ORDERED: morphine CARPU-JECT 2 MG/1 ML DISP.SYRIN IM ONE ×2 (00:51→03:02)
--- NOTE | 2017-07-27 00:56 | PDOC ---
Attending Attestation - Resident Resident Name: Jevon Cox - ED Attending Attestation I have performed the following: I have examined & evaluated the patient, The case was reviewed & discussed with the resident, I agree w/resident's findings & plan, Exceptions are as noted - HPI HPI: 07/27/17 00:55 pt BIBA for chest pain since dialysis on Thursday and chronic body pain - Physicial Exam PE: 07/27/17 00:56 thin, elderly 61 yo male states he has had chest pain since his dialysis on Sat Head - no signs of acute head trauma lungs no wheezing,no rales cvr [id number] abd no guarding,no rebound extremity - amputated rt 3rd digit dialysis access :rt anterior chest neuro alert and conversant - Medical Decision Making 07/28/17 00:40 trop pending,signed out to Dr Rainey
[2017-07-27] MEDS ORDERED: morphine CARPU-JECT 2 MG/1 ML DISP.SYRIN ONE ×2 (01:05→03:10)
[2017-07-27 01:52] LABS: ALBUMIN 2.6 g/dl (3.4-5.0); ALK PHOS 147 U/L (45-117); ANION GAP 9 (8-16); BILIRUBIN,TOTAL 0.3 mg/dL (0.2-1.0); CO2 25 mmol/L (21-32); CREATININE 4.2 mg/dL (0.7-1.3); GLUCOSE,RANDOM 133 mg/dL (74-106); SGPT/ALT 20 U/L (12-78); TOT PROT 6.1 g/dl (6.4-8.2)
[2017-07-27 01:54] LABS: SGOT/AST 27 U/L (15-37)
[2017-07-27 02:29] LABS: TROPONIN I 0.07 ng/ml (0.00-0.05)
[2017-07-27 02:40] LABS: ANISOCYTOSIS 1+; HYPOCHROMIA 1+; PLATELET ESTIMATE ADEQUATE (NORMAL)
[2017-07-27 03:52] VITALS: BP 146/74; PULSE 60; TEMP 98.1
--- NOTE | 2017-07-28 07:11 | EKG ---
Test Reason : Blood Pressure : / mmHG Vent. Rate : 063 BPM Atrial Rate : 234 BPM P-R Int : 000 ms QRS Dur : 160 ms QT Int : 482 ms P-R-T Axes : 000 130 -77 degrees QTc Int : 493 ms Ventricular-paced rhythm Biventricular pacemaker detected ABNORMAL ECG WHEN COMPARED WITH ECG OF 04-JUL-2017 12:44, VENT. RATE HAS INCREASED BY 2 BPM Confirmed by SAIRA STEIN MD ([id number]) on 07/28/2017 7:10:42 AM Referred By: Confirmed By:SAIRA STEIN MD
== END 2017-07-27 03:52 | disposition home or self-care (01) ==
LOC: JER 22:30
DX: Z76.5 Malingerer [conscious simulation] (principal); R07.89 Other chest pain; G89.29 Other chronic pain; I25.810 Atherosclerosis of coronary artery bypass graft(s) without angina pectoris; I13.2 Hypertensive heart and chronic kidney disease with heart failure and with stage 5 chronic kidney disease, or end stage renal disease; N18.6 End stage renal disease; I50.89 Other heart failure; Z99.2 Dependence on renal dialysis; Z95.1 Presence of aortocoronary bypass graft; Z95.5 Presence of coronary angioplasty implant and graft; E11.9 Type 2 diabetes mellitus without complications; E78.00 Pure hypercholesterolemia, unspecified; N40.0 Benign prostatic hyperplasia without lower urinary tract symptoms; Z86.718 Personal history of other venous thrombosis and embolism; Z79.01 Long term (current) use of anticoagulants; Z95.0 Presence of cardiac pacemaker
CPT/HCPCS: 36415; 80053; 82550; 84484; 85025; 93005; 93010; 99282-25

== ENCOUNTER 2017-08-07 12:59 | Emergency (ER) | payer OTHER ==
[2017-08-07 13:30] VITALS: BP 126/31; PULSE 59; TEMP 97.7; BMI 22.8
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
[2017-08-07] MEDS ORDERED: HYDROmorphone HCL CARPU-JECT 1 MG/1 ML DISP.SYRIN IVPUSH ONE (13:53)
--- NOTE | 2017-08-07 14:52 | PDOC ---
Attending Attestation - Resident Resident Name: Levon Parra - ED Attending Attestation I have performed the following: I have examined & evaluated the patient, The case was reviewed & discussed with the resident, I agree w/resident's findings & plan, Exceptions are as noted - HPI HPI: 08/07/17 16:58 66 year old male well known to our ED, with significant past medical history of ESRD (on dialysis Thursday//Thursday) - pt states his last dialysis was on thursday (off cycle due to recenta dmission), Diabetes Mellitus, CHF, CAD (s /p CABG, stents, and pacemaker), DVT, CVA, HLD, who presents to the emergency room BIBA complaining of body pain and right sided chest pain that began 2 days ago after dialysis. The pain is sharp and 10/10 on severity. He reports associated SOB and body weakness. Pain is consistent with prior episodes of pain. No asscociate fever/chills, exertioanl dysupea, leg swelling, hemoptysis , headache, dizziness, palpitations. On exam the pt is slightly edemadous in th face, +edema of the LUE (chronic), L lung base with mild rales (also chronic), dialysis cather in th L chest that is c/d/i pts labs reviewed unremakble including normal K josé obtain a 2nd trop at 6 hrs and will dc to continue his dialysis tomorrow. - Physicial Exam PE: 08/10/17 22:38 see above - Medical Decision Making 08/10/17 22:38 see above Heart Score/ECG Review - ECG Impressions Comment:: 08/07/17 17:32 biventricular pacing rate of 60 no acute changes suggestive of ischemia
[2017-08-07 15:11] LABS: EOSINOPHIL 3.4 % (0-4.5); MCHC 33.2 g/dl (32.0-35.9); MEAN CELL VOLUME 93.5 fl (80-96); MEAN PLT VOLUME 9.7 fl (7.5-11.1); NEUTROPHILS 74.1 % (42.8-82.8); PLATELET COUNT 136 K/MM3 (134-434); RDW 20.1 % (11.9-15.9); WHITE BLOOD COUNT 6.7 K/mm3 (4.0-10.0)
[2017-08-07 15:19] LABS: ALBUMIN 2.9 g/dl (3.4-5.0); ALK PHOS 176 U/L (45-117); ANION GAP 5 (8-16); BILIRUBIN,TOTAL 0.3 mg/dL (0.2-1.0); CALCIUM 8.3 mg/dL (8.5-10.1); CO2 28 mmol/L (21-32); CREATININE 4.8 mg/dL (0.7-1.3); GLUCOSE,RANDOM 73 mg/dL (74-106); SGOT/AST 19 U/L (15-37); SGPT/ALT 17 U/L (12-78); TOT PROT 6.5 g/dl (6.4-8.2)
[2017-08-07 15:22] LABS: TROPONIN I 0.03 ng/ml (0.00-0.05)
[2017-08-07 20:47] LABS: TROPONIN I 0.03 ng/ml (0.00-0.05)
--- NOTE | 2017-08-08 09:34 | EKG ---
Test Reason : Blood Pressure : / mmHG Vent. Rate : 060 BPM Atrial Rate : 068 BPM P-R Int : 000 ms QRS Dur : 162 ms QT Int : 490 ms P-R-T Axes : 000 054 -30 degrees QTc Int : 490 ms AV dual-paced rhythm Biventricular pacemaker detected ABNORMAL ECG WHEN COMPARED WITH ECG OF 26-JUL-2017 23:34, VENT. RATE HAS DECREASED BY 3 BPM Confirmed by SUSAN FLANNERY, ТАТЬЯНА ([id number]) on 08/08/2017 9:34:21 AM Referred By: Confirmed By:ТАТЬЯНА DAVIS MD
== END 2017-08-07 23:27 | disposition home or self-care (01) ==
LOC: JER 12:59
PROC: 3E033NZ Introduction of Analgesics, Hypnotics, Sedatives into Peripheral Vein, Percutaneous Approach (ICD-10-PCS; principal; 2017-08-07)
DX: R07.89 Other chest pain (principal); F11.20 Opioid dependence, uncomplicated; I25.10 Atherosclerotic heart disease of native coronary artery without angina pectoris; I13.2 Hypertensive heart and chronic kidney disease with heart failure and with stage 5 chronic kidney disease, or end stage renal disease; N18.6 End stage renal disease; I50.9 Heart failure, unspecified; Z99.2 Dependence on renal dialysis; Z95.1 Presence of aortocoronary bypass graft; Z95.5 Presence of coronary angioplasty implant and graft; E11.9 Type 2 diabetes mellitus without complications; Z79.84 Long term (current) use of oral hypoglycemic drugs; N40.0 Benign prostatic hyperplasia without lower urinary tract symptoms; F41.9 Anxiety disorder, unspecified; Z95.810 Presence of automatic (implantable) cardiac defibrillator; Z86.73 Personal history of transient ischemic attack (TIA), and cerebral infarction without residual deficits; Z87.891 Personal history of nicotine dependence
CPT/HCPCS: 36415; 71010-TC; 80053; 82550; 83880; 84484; 85025; 93005; 93010; 96374; 99284-25

== ENCOUNTER 2017-08-08 03:50 | Emergency (ER) | payer OTHER ==
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
--- NOTE | 2017-08-08 04:27 | PDOC ---
Attending Attestation - Resident Resident Name: Emma Snyder - HPI HPI: 08/08/17 03:57 Chronic Pain - Physicial Exam PE: 08/08/17 03:57 VSS/NAD, - Medical Decision Making 08/08/17 04:27 Tawanda's exam is unchanged. He called 911 wanting to go to [facility] however they brought him to us because we were the closest hospital. He had a full work up earlier and continues to want narcotics for his chronic pain. He is scheduled for dialysis this morning. We are discharging him so that he can go and get dialysis now.
[2017-08-08 04:36] VITALS: BP 121/95; PULSE 88; TEMP 96.8; BMI 26.5
== END 2017-08-08 04:57 | disposition home or self-care (01) ==
LOC: JER 03:50
DX: R07.89 Other chest pain (principal); I25.10 Atherosclerotic heart disease of native coronary artery without angina pectoris; I13.2 Hypertensive heart and chronic kidney disease with heart failure and with stage 5 chronic kidney disease, or end stage renal disease; N18.6 End stage renal disease; I50.9 Heart failure, unspecified; Z99.2 Dependence on renal dialysis; Z95.1 Presence of aortocoronary bypass graft; Z95.5 Presence of coronary angioplasty implant and graft; Z87.891 Personal history of nicotine dependence; E11.9 Type 2 diabetes mellitus without complications; Z79.84 Long term (current) use of oral hypoglycemic drugs; Z95.810 Presence of automatic (implantable) cardiac defibrillator; N40.0 Benign prostatic hyperplasia without lower urinary tract symptoms; Z86.73 Personal history of transient ischemic attack (TIA), and cerebral infarction without residual deficits; F41.9 Anxiety disorder, unspecified
CPT/HCPCS: 99281-25

== ENCOUNTER 2017-08-29 22:28 | Emergency (ER) | payer OTHER ==
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
[2017-08-29 22:49] VITALS: BP 130/58; BMI 22.8
[2017-08-29] MEDS ORDERED: ACETAMINOPHEN 500 MG TABLET (FP) PO ONE (23:28)
[2017-08-30 00:07] VITALS: PULSE 76; TEMP 99
--- NOTE | 2017-08-31 09:50 | EKG ---
Test Reason : Blood Pressure : / mmHG Vent. Rate : 075 BPM Atrial Rate : 086 BPM P-R Int : 000 ms QRS Dur : 168 ms QT Int : 430 ms P-R-T Axes : 000 029 -25 degrees QTc Int : 480 ms Ventricular-paced rhythm Biventricular pacemaker detected ABNORMAL ECG WHEN COMPARED WITH ECG OF 17-AUG-2017 09:04, PREMATURE VENTRICULAR COMPLEXES ARE NO LONGER PRESENT VENT. RATE HAS INCREASED BY 9 BPM Confirmed by SUSAN FLANNERY, ТАТЬЯНА ([id number]) on 08/31/2017 9:49:30 AM Referred By: Confirmed By:ТАТЬЯНА DAVIS MD
== END 2017-08-30 01:13 | disposition left against medical advice (07) ==
LOC: JER 22:28
DX: R07.89 Other chest pain (principal); I25.10 Atherosclerotic heart disease of native coronary artery without angina pectoris; I13.2 Hypertensive heart and chronic kidney disease with heart failure and with stage 5 chronic kidney disease, or end stage renal disease; N18.6 End stage renal disease; I50.89 Other heart failure; Z99.2 Dependence on renal dialysis; Z95.1 Presence of aortocoronary bypass graft; Z95.5 Presence of coronary angioplasty implant and graft; E11.9 Type 2 diabetes mellitus without complications; E78.00 Pure hypercholesterolemia, unspecified; J44.9 Chronic obstructive pulmonary disease, unspecified; Z86.73 Personal history of transient ischemic attack (TIA), and cerebral infarction without residual deficits; Z95.0 Presence of cardiac pacemaker; Z86.718 Personal history of other venous thrombosis and embolism; F41.9 Anxiety disorder, unspecified; Z87.891 Personal history of nicotine dependence
CPT/HCPCS: 93005; 93010; 99282-25

== ENCOUNTER 2017-08-31 01:21 | Emergency (ER) | payer OTHER ==
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
[2017-08-31] MEDS ORDERED: RANITIDINE HCL 150 MG/10 ML UNIT-DOSE PO ONE (02:05)
[2017-08-31] MEDS ORDERED: diphenhydrAMINE HCL 12.5 MG/5 ML UNIT-DOSE CUPS PO ONE (02:05)
[2017-08-31] MEDS ORDERED: MAG HYDROX/AL HYDROX/SIMETH 355 ML ORAL.SUSP PO ONE (02:05)
[2017-08-31] MEDS ORDERED: LIDOCAINE VISCOUS 2% ORAL/TOP 20 ML UNIT-DOSE CUP MM ONE (02:07)
[2017-08-31] MEDS ORDERED: MAG HYDROX/AL HYDROX/SIMETH 30 ML UNIT-DOSE CUP ONE (02:10)
[2017-08-31] MEDS ORDERED: RANITIDINE HCL 150 MG TABLET (FP) ONE (02:10)
[2017-08-31] MEDS ORDERED: diphenhydrAMINE HCL 12.5 MG/5 ML BULK BOTTLE ONE (02:10)
[2017-08-31] MEDS ORDERED: LIDOCAINE VISCOUS 2% ORAL/TOP 20 ML UNIT-DOSE CUP ONE (02:10)
[2017-08-31 02:20] VITALS: BP 141/70; PULSE 74; TEMP 98.1; BMI 20.1
[2017-08-31] MEDS ORDERED: ACETAMINOPHEN 325 MG TABLET (FP) PO ONE (02:40)
[2017-08-31 03:11] LABS: BASOPHIL 0.8 % (0-2.0); EOSINOPHIL 4.3 % (0-4.5); MCH 30.5 pg (25.7-33.7); MCHC 32.2 g/dl (32.0-35.9); MEAN CELL VOLUME 94.8 fl (80-96); MEAN PLT VOLUME 9.2 fl (7.5-11.1); NEUTROPHILS 77.6 % (42.8-82.8); PLATELET COUNT 131 K/MM3 (134-434); RDW 20.1 % (11.9-15.9); WHITE BLOOD COUNT 7.3 K/mm3 (4.0-10.0)
[2017-08-31 03:36] LABS: ALBUMIN 2.8 g/dl (3.4-5.0); ANION GAP 9 (8-16); BILIRUBIN,TOTAL 0.3 mg/dL (0.2-1.0); CALCIUM 8.1 mg/dL (8.5-10.1); CO2 24 mmol/L (21-32); CREATININE 5.1 mg/dL (0.7-1.3); GLUCOSE,RANDOM 140 mg/dL (74-106); SGOT/AST 32 U/L (15-37); SGPT/ALT 11 U/L (12-78); TOT PROT 6.3 g/dl (6.4-8.2)
[2017-08-31 03:37] LABS: ALK PHOS 198 U/L (45-117); CPK 110 IU/L (39-308); TROPONIN I 0.09 ng/ml (0.00-0.05)
== END 2017-08-31 05:24 | disposition home or self-care (01) ==
LOC: JER 01:21
DX: R07.89 Other chest pain (principal); M79.605 Pain in left leg; G89.29 Other chronic pain; I25.810 Atherosclerosis of coronary artery bypass graft(s) without angina pectoris; I13.2 Hypertensive heart and chronic kidney disease with heart failure and with stage 5 chronic kidney disease, or end stage renal disease; N18.6 End stage renal disease; I50.9 Heart failure, unspecified; Z99.2 Dependence on renal dialysis; Z95.1 Presence of aortocoronary bypass graft; Z95.5 Presence of coronary angioplasty implant and graft; Z87.891 Personal history of nicotine dependence; E11.9 Type 2 diabetes mellitus without complications; E78.00 Pure hypercholesterolemia, unspecified; N40.0 Benign prostatic hyperplasia without lower urinary tract symptoms; F41.9 Anxiety disorder, unspecified; Z95.0 Presence of cardiac pacemaker; Z79.82 Long term (current) use of aspirin; Z86.73 Personal history of transient ischemic attack (TIA), and cerebral infarction without residual deficits; Z86.718 Personal history of other venous thrombosis and embolism; Z79.01 Long term (current) use of anticoagulants
CPT/HCPCS: 36415; 80053; 82550; 83880; 84484; 85025; 99281-25

== ENCOUNTER 2017-10-17 08:01 | Inpatient (IN) | payer OTHER ==
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
--- NOTE | 2017-10-17 08:28 | PDOC ---
Attending Attestation - [facility] HPI: 10/17/17 08:37 The patient is a 67 year old male, well known to this ED, with a significant past medical history of anemia, ESRD (T, Th, Sat dialysis), diabetes, CHF, CAD ( s/p CABG, stent, pacemaker), DVT on eliquis, CVA, HTN, HLD, and PVD, who presents to the emergency department complaining of increased facial swelling for several days. The patient reports noting increased facial and neck swelling s/p right infraclavicular port placement approximately 1 week ago. He reports associated neck pain and ecchymosis along the surgical site. The patient reports he last had dialysis 1 week ago. Patient states he was drinking a lot of water yesterday and is due for dialysis this afternoon. He denies any recent fever, chills, cough, headache, or dizziness. He denies any chest pain, shortness of breath, diaphoresis, or palpitations. He denies any abdominal pain , nausea, vomiting, diarrhea, constipation, or changes in urination. He denies any recent travel or sick contacts. Allergies: NKDA Past Surgical History: Pacemaker, Cardiac cath/stents, Right/ left arm fistula , Right infraclavicular port placement Social History: Former smoker. Former cocaine user. No ETOH use. 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 Normocephalic Eyes: Increased eyelid swelling. Pupils equal reactive round, extraocular movement intact Ears: TM's normal bilaterally; Nose: Nares patent bilaterally;no nasal congestion Throat: Posterior oropharynx without erythema, mucous membranes moist. Neck: Increased neck swelling and tenderness to palpation. No Nuchal rigidity Chest Wall: Bruising at surgical right infraclavicular port, but no active bleeding, drainage, erythema, or tenderness Cardiac: Regular rate and rhythm, no murmurs, no rubs, no gallops, Lungs: Clear to auscultation bilateral, good air movement bilaterally, Abdomen: Soft, nondistended, normal bowel sounds, nontender to palpation Extremities: Full range of motion to all extremities, no cyanosis, clubbing, or edema Skin: Ecchymosis to right infraclavicular chest. Warm and dry, no rashes or lesions, no petechiae Neuro: AOX3; Cranial Nerves 2-12 grossly intact, Strength intact to all extremities, Sensation intact to all extremities Psych: normal mood, normal affect - Medical Decision Making 10/17/17 08:39 First call placed to Dr. Torres at 12:57. Awaiting call back. Case discussed with Dr. Campos 13:06. EXAM: Neck CT INTERPRETED BY: Dr. Strong REVIEWED BY: Dr. Lancaster IMPRESSION: Interval worsening diffuse soft tissue swelling and subcutaneous edema. Enlarged left parotid gland without evidence of a discrete mass on this nonenhanced scan. No drainable collection is identified. EXAM: CXR INTERPRETED BY: Dr. Strong REVIEWED BY: Dr. Lancaster IMPRESSION: No acute pathology. No significant change since prior study. In view of the patient's history of neck pain, further imaging of the neck should be obtained. Documentation prepared by Sharon Rahman, acting as associate medical director for Shakir Lancaster MD. <Sharon Rahman - Last Filed: 10/17/17 13:31> - Resident Resident Name: Karthik Bella - ED Attending Attestation I have performed the following: I have examined & evaluated the patient, The case was reviewed & discussed with the resident, I agree w/resident's findings & plan, Exceptions are as noted - Medical Decision Making CT findings as dictated. Concern for parotitis. Try to contact patient's primary care provider but was unable to as patient does not reliably follow-up with a PCP. Given that he is due for his dialysis today is unable to make his dialysis appointment second his visit to the ED has a possible parotitis with neck edema. Decision made to observe overnight/admitted overnight for dialysis IV antibiotics and further management. renal consulted for dialysis <Shakir Lancaster - Last Filed: 10/17/17 15:34> Heart Score/ECG Review - ECG Intrepretation Comment:: 10/17/17 09:33 Vent rate: 60 bpm IMPRESSION: Paced rhythm. <Sharon Rahman - Last Filed: 10/17/17 13:31>
[2017-10-17 08:29] VITALS: PULSE 60
[2017-10-17] MEDS ORDERED: ACETAMINOPHEN 1000 MG/100 ML VIAL (NON FORMULARY) IVPB ONE (08:30)
[2017-10-17 09:45] LABS: BASO % 1.2 % (0-2.0); EOS % 5.5 % (0-4.5); HEMATOCRIT 32.7 % (35.4-49); HEMOGLOBIN 10.3 GM/dL (11.7-16.9); LYMPH % 10.6 % (8-40); MCH 29.4 pg (25.7-33.7); MCHC 31.4 g/dl (32.0-35.9); MEAN CELL VOLUME 93.6 fl (80-96); MEAN PLT VOLUME 9.5 fl (7.5-11.1); MONO % 11.1 % (3.8-10.2); NEUT % 71.6 % (42.8-82.8); PLATELET COUNT 143 K/MM3 (134-434); RBC 3.49 M/mm3 (4.00-5.60); RDW 16.8 % (11.9-15.9); WHITE BLOOD COUNT 4.1 K/mm3 (4.0-10.0)
[2017-10-17 10:42] LABS: ALBUMIN 3.2 g/dl (3.4-5.0); CALCIUM 8.4 mg/dL (8.5-10.1); CHLORIDE 108 mmol/L (98-107); SODIUM 139 mmol/L (136-145)
[2017-10-17 10:43] LABS: POTASSIUM 4.7 mmol/L (3.5-5.1)
[2017-10-17 10:48] LABS: ALK PHOS 175 U/L (45-117); ANION GAP 8 (8-16); BILIRUBIN,TOTAL 0.4 mg/dL (0.2-1.0); BLOOD UREA NITROGEN 42 mg/dL (7-18); CO2 23 mmol/L (21-32); GLUCOSE,RANDOM 78 mg/dL (74-106); SGPT/ALT 8 U/L (12-78); TOT PROT 7.2 g/dl (6.4-8.2)
[2017-10-17 10:49] LABS: SGOT/AST 27 U/L (15-37)
[2017-10-17] MEDS ORDERED: CLINDAMYCIN 600MG PREMIX IVPB 600 MG/50 ML BAG IVPB ONE (13:31)
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
[2017-10-17] MEDS ORDERED: ACETAMINOPHEN 325 MG TABLET (FP) PO PRN (15:09)
[2017-10-17] MEDS: traMADol HCL 50 MG TABLET PO PRN (15:40)
[2017-10-17] MEDS ORDERED: PIPERACILLIN/TAZOB 3.375 GM/50 ML PRE-DOCKED IVPB SCH (16:15)
[2017-10-17] MEDS ORDERED: VANCOMYCIN 1,000 MG in DEXTROSE 5%-WATER - 250 ML IVPB ONE (16:21)
[2017-10-17] MEDS ORDERED: PIPERACILLIN/TAZOB 2.25 GM/50 ML PREMIX BAG IVPB SCH (16:30)
[2017-10-17] MEDS ORDERED: SEVELAMER CARBONATE 800 MG TAB (FP) PO SCH (17:30)
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
[2017-10-17] MEDS ORDERED: ATORVASTATIN CA 20 MG TABLET (FP) PO SCH ×2 (22:00→23:30)
[2017-10-17] MEDS ORDERED: hydrALAZINE HCL 50 MG TABLET (FP) PO SCH ×2 (22:00→23:30)
[2017-10-17] MEDS ORDERED: HEPARIN NA (PORCINE) 5,000 UNITS/ML 1ML VIAL SQ SCH (22:00)
[2017-10-17] MEDS ORDERED: CARVEDILOL 12.5 MG TABLET (FP) PO SCH ×2 (22:00→23:30)
[2017-10-17] MEDS ORDERED: PT OWN MED DRAWER 7, Y5N ONE (23:27)
[2017-10-17] MEDS ORDERED: PIPERACILLIN/TAZOB 2.25 GM/50 ML PREMIX BAG IVPB ONE (23:30)
[2017-10-17] MEDS: HEPARIN NA (PORCINE) 5,000 UNITS/ML 1ML VIAL SQ SCH (23:53)
[2017-10-18] MEDS: traMADol HCL 50 MG TABLET PO PRN (01:51)
[2017-10-18 02:53] VITALS: BP 115/78; TEMP 98.2; BMI 19.2
[2017-10-18] MEDS: HEPARIN NA (PORCINE) 5,000 UNITS/ML 1ML VIAL SQ SCH (06:14)
[2017-10-18] MEDS ORDERED: SEVELAMER CARBONATE 800 MG TAB (FP) PO SCH (08:00)
[2017-10-18] MEDS ORDERED: TAMSULOSIN HCL 0.4 MG CAP.ER.24H (FP) PO SCH (08:30)
[2017-10-18] MEDS ORDERED: GABAPENTIN 100 MG CAPSULE (FP) PO SCH (10:00)
[2017-10-18] MEDS ORDERED: PANTOPRAZOLE 40 MG TABLET (FP) PO SCH (10:00)
[2017-10-18] MEDS ORDERED: ISOSORBIDE MONONITRATE 30 MG TAB.SR.24H (FP) PO SCH (10:00)
[2017-10-18] MEDS ORDERED: PIPERACILLIN/TAZOB 2.25 GM/50 ML PREMIX BAG IVPB SCH (10:00)
--- NOTE | 2017-10-18 11:36 | EKG ---
Test Reason : Blood Pressure : / mmHG Vent. Rate : 060 BPM Atrial Rate : 059 BPM P-R Int : 000 ms QRS Dur : 162 ms QT Int : 508 ms P-R-T Axes : 000 049 007 degrees QTc Int : 508 ms AV dual-paced rhythm Biventricular pacemaker detected ABNORMAL ECG WHEN COMPARED WITH ECG OF 29-AUG-2017 22:38, VENT. RATE HAS DECREASED BY 15 BPM Confirmed by GERBER ONEILL MD ([id number]) on 10/18/2017 11:36:13 AM Referred By: Confirmed By:GERBER ONEILL MD
--- NOTE | 2017-10-18 18:31 | DS ---
Physical Exam: SUBJECTIVE: Patient left AMA prior to exam OBJECTIVE: Vital Signs Period Temp Pulse Resp BP Sys/Hinds Pulse Ox Last 24 Hr 98.2 F 60-60 18-18 115-139/66-78 99 PHYSICAL EXAM - Unable to obtain, pt left ama prior to examination HOSPITAL COURSE: Date of Admission:10/17/17 Date of Discharge: 10/18/17 Minutes to complete discharge: 36 Discharge Summary Reason For Visit: ESRD ENLARGED PAROTID GLAND Hospital Course: Hospital Course: Briefly, 67 year old male with pmhx of anemia, HTN, HLD, CVA, DVT, DMII CAD s/p CABG, pacemaker and stents, CHF, DM, ESRD (dialysis T,Th,S) enlarged prostate and anxiety presented with worsening facial swelling x1 day and not feeling well. 5 days ago he fell in his home because his legs hurt. He has ecchymosis to his R shoulder and denies falling on his shoulder. He also believes he gets dialyzed too much. Patient was dialyzed as per regular HD day, he was give x1 dose of zosyn and vanco He left this morning AMA prior to any evaluation from medical team - Instructions Referrals: Yrn Torres MD [Primary Care Provider] - Disposition: AGAINST MEDICAL ADVICE - Home Medications Comprehensive Discharge Medication List: Ambulatory Orders Carvedilol [Coreg -] 12.5 mg PO BID #60 tablet 12/07/16 Atorvastatin Ca [Lipitor] 20 mg PO HS #30 tablet 04/08/17 Gabapentin [Neurontin] 100 mg PO DAILY #30 capsule 04/08/17 Hydralazine HCl [Apresoline -] 50 mg PO BID #60 tablet 04/08/17 Isosorbide Mononitrate [Imdur -] 30 mg PO DAILY #30 tab.sr.24h 04/08/17 Sevelamer Carbonate [Renvela -] 800 mg PO TIDCM #90 tab 04/08/17 Tamsulosin HCl [Flomax -] 0.4 mg PO DAILY@0830 #30 capsule 04/08/17 Pantoprazole Sodium 40 mg PO DAILY 04/20/17 Unobtainable 10/17/17 Problem List - Problems (1) End stage renal disease Code(s): N18.6 - END STAGE RENAL DISEASE (2) Parotid gland enlargement Code(s): K11.1 - HYPERTROPHY OF SALIVARY GLAND This patient is new to me today: No Emergency Visit: Yes ED Registration Date: 10/17/17 Care time: The patient presented to the Emergency Department on the above date and was hospitalized for further evaluation of their emergent condition. Critical Care patient: No - Discharge Referral Referred to [facility] No
[2017-10-21 00:06] LABS: HBSAG SCREEN Negative (Negative); HEP A AB, IGM Negative (Negative); HEP B CORE AB, TOT Negative (Negative)
== END 2017-10-18 08:00 | disposition left against medical advice (07) | DRG 154 ==
LOC: JER 08:01 → JERBED 14:23 → J6S 17:57
PROVIDERS: ADMIT Hospitalist; ATTEND Nurse Practitioner Acute Care
PROC: 5A1D90Z Performance of Urinary Filtration, Continuous, Greater than 18 hours Per Day (ICD-10-PCS; principal; 2017-10-17)
DX: K11.1 Hypertrophy of salivary gland (principal); N18.6 End stage renal disease; I13.2 Hypertensive heart and chronic kidney disease with heart failure and with stage 5 chronic kidney disease, or end stage renal disease; I50.22 Chronic systolic (congestive) heart failure; E11.22 Type 2 diabetes mellitus with diabetic chronic kidney disease; Z99.2 Dependence on renal dialysis; E78.5 Hyperlipidemia, unspecified; I25.10 Atherosclerotic heart disease of native coronary artery without angina pectoris; Z98.61 Coronary angioplasty status; Z95.1 Presence of aortocoronary bypass graft; Z95.0 Presence of cardiac pacemaker; D64.9 Anemia, unspecified
CPT/HCPCS: 36415; 70491-TC; 71045-TC; 80053; 85025; 86704; 86706; 86708; 86803; 87340; 93005; 93010; 99284-25

== ENCOUNTER 2017-10-19 22:10 | Inpatient (IN) | payer OTHER ==
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
[2017-10-19 22:24] VITALS: BMI 22.8
[2017-10-19 23:40] LABS: BASO % 1.7 % (0-2.0); EOS % 3.6 % (0-4.5); HEMATOCRIT 29.9 % (35.4-49); HEMOGLOBIN 9.5 GM/dL (11.7-16.9); LYMPH % 11.5 % (8-40); MCH 29.9 pg (25.7-33.7); MCHC 31.8 g/dl (32.0-35.9); MEAN CELL VOLUME 94.1 fl (80-96); MEAN PLT VOLUME 9.6 fl (7.5-11.1); MONO % 14.5 % (3.8-10.2); NEUT % 68.7 % (42.8-82.8); PLATELET COUNT 162 K/MM3 (134-434); RBC 3.18 M/mm3 (4.00-5.60); RDW 16.8 % (11.9-15.9); WHITE BLOOD COUNT 4.6 K/mm3 (4.0-10.0)
[2017-10-20 00:37] LABS: INR 1.1 (0.82-1.09); PROTHROMBIN TIME (PATIENT) 12.4 SEC (9.98-11.88)
[2017-10-20 00:39] LABS: MAGNESIUM 2.4 mg/dL (1.8-2.4)
[2017-10-20 00:42] LABS: BILIRUBIN,TOTAL 0.3 mg/dL (0.2-1.0)
[2017-10-20 00:43] LABS: ALK PHOS 184 U/L (45-117)
[2017-10-20 00:58] LABS: ANION GAP 11 (8-16); BLOOD UREA NITROGEN 38 mg/dL (7-18); CALCIUM 8.6 mg/dL (8.5-10.1); CHLORIDE 101 mmol/L (98-107); CO2 27 mmol/L (21-32); CREATININE 5.8 mg/dL (0.7-1.3); GLUCOSE,RANDOM 96 mg/dL (74-106); POTASSIUM 4.5 mmol/L (3.5-5.1); SGOT/AST 22 U/L (15-37); SGPT/ALT 6 U/L (12-78); SODIUM 139 mmol/L (136-145); TOT PROT 6.9 g/dl (6.4-8.2)
[2017-10-20 01:27] LABS: N-TERMINAL BNP 47456.41 pg/ml (5-125)
--- NOTE | 2017-10-20 01:37 | HP ---
CHIEF COMPLAINT: chest pain, legs pain PCP:Yrn Torres MD HISTORY OF PRESENT ILLNESS: 66 year old Male with PMHx significant for DM, HTN, HLD, CVA, CAD, ESRD, CHF, previous DVT, who frequents the hospital for pain medication, presented yesterday for a pain in his right neck and diffuse chest pain. He states his chest pain is 10/10. He also reports pain in b/l arm, b/l lower extremity and diffuse abdominal pain which he attributes to being hungry. He presented to hospital yesterday for facial swelling and left AMA. He reports nausea and constipation of 3 days duration but denies diarrhea, fever, cough, vomiting, headache, blurry vision, SOB. He states last HD was yesterday. He is noncompliant with diabetic medication and is unsure what he takes at home. ER course was notable for: (1) EKG - paced rhythm, no ST seg elevation, QTc 479 (2) CXR - B/L pleural effusion, my reading; no official reading (3) CT scan chest - pending official reading (4) H/H 9.5/29.9 - at pt baseline; BUN/Cr 38/5.8 at pt baseline (5) Trop - 0.10; BNP - 87943. (6) Tylenol PRN pain; known hx opioid abuse Recent Travel:denies PAST MEDICAL HISTORY: DM, HTN, HLD, CVA, CAD, ESRD, CHF, previous DVT,svc syndrome PAST SURGICAL HISTORY: Pacemaker, stent, CABG, central cath Social History: Smoking: previous smoker 1ppd x5 years, quit one year ago? Alcohol:denies Drugs: denies Family History: Allergies No Known Drug Allergies Allergy (Verified 10/19/17 22:21) HOME MEDICATIONS: Home Medications Medication Instructions Recorded Carvedilol [Coreg -] 12.5 mg PO BID #60 tablet 12/07/16 Atorvastatin Ca [Lipitor] 20 mg PO HS #30 tablet 04/08/17 Gabapentin [Neurontin] 100 mg PO DAILY #30 capsule 04/08/17 Hydralazine HCl [Apresoline -] 50 mg PO BID #60 tablet 04/08/17 Isosorbide Mononitrate [Imdur -] 30 mg PO DAILY #30 tab.sr.24h 04/08/17 Sevelamer Carbonate [Renvela -] 800 mg PO TIDCM #90 tab 04/08/17 Tamsulosin HCl [Flomax -] 0.4 mg PO DAILY@0830 #30 capsule 04/08/17 Pantoprazole Sodium 40 mg PO DAILY 04/20/17 Unobtainable 10/17/17 REVIEW OF SYSTEMS CONSTITUTIONAL: Absent: fever, chills, diaphoresis, generalized weakness, malaise, loss of appetite, weight change HEENT: Absent: rhinorrhea, nasal congestion, throat pain, throat swelling, difficulty swallowing, mouth swelling, ear pain, eye pain, visual changes CARDIOVASCULAR: Absent: chest pain, syncope, palpitations, irregular heart rate, lightheadedness , peripheral edema RESPIRATORY: Absent: cough, shortness of breath, dyspnea with exertion, orthopnea, wheezing, stridor, hemoptysis GASTROINTESTINAL: Absent: abdominal pain, abdominal distension, nausea, vomiting, diarrhea, constipation, melena, hematochezia GENITOURINARY: Absent: dysuria, frequency, urgency, hesitancy, hematuria, flank pain, genital pain MUSCULOSKELETAL: Absent: myalgia, arthralgia, joint swelling, back pain, neck pain SKIN: Absent: rash, itching, pallor HEMATOLOGIC/IMMUNOLOGIC: Absent: easy bleeding, easy bruising, lymphadenopathy, frequent infections ENDOCRINE: Absent: unexplained weight gain, unexplained weight loss, heat intolerance, cold intolerance NEUROLOGIC: Absent: headache, focal weakness or paresthesias, dizziness, unsteady gait, seizure, mental status changes, bladder or bowel incontinence PSYCHIATRIC: Absent: anxiety, depression, suicidal or homicidal ideation, hallucinations. PHYSICAL EXAMINATION Vital Signs - 24 hr 10/19/17 22:22 Pulse Rate 64 Respiratory 14 Rate Blood Pressure 170/73 O2 Sat by Pulse 97 Oximetry (%) GENERAL: Awake, alert, and fully oriented, in no acute distress. HEAD: Normal with no signs of trauma. poor dentation, lower lip discoloration , facial edema EYES: Pupils equal, round and reactive to light, extraocular movements intact, sclera icteric, conjunctiva palor EARS, NOSE, THROAT: Ears normal, nares patent, oropharynx clear without exudates. Moist mucous membranes. NECK: Normal range of motion, supple , central cath in place with echemoses LUNGS: Breath sounds equal, clear to auscultation bilaterally. No wheezes, and+ crackles B/L bases . No accessory muscle use. HEART: pacing rhythm, normal S1 and S2 without murmur, rub or gallop. ABDOMEN: Soft, diffuse tenderness , not distended, normoactive bowel sounds, no guarding, no rebound, upper ext: sensation intact , strength 5/5 , +2 pulse LOWER EXTREMITIES: 1+ pulses, warm, well-perfused. No calf tenderness. No peripheral edema. very sensitive to touch. strength 3/5 against gravity. NEUROLOGICAL: no focal deficit, Normal speech. gait, not observed PSYCHIATRIC: Cooperative. Good eye contact. SKIN: Warm, dry, no rashes or lesions noted, Laboratory Results - last 24 hr 10/19/17 10/19/17 10/19/17 23:30 23:30 23:30 WBC RBC Hgb Hct MCV MCH MCHC RDW Plt Count MPV Neutrophils % Lymphocytes % Monocytes % Eosinophils % Basophils % PT with INR INR PTT (Actin FS) 41.2 H D Sodium 139 Potassium 4.5 Chloride 101 Carbon Dioxide 27 Anion Gap 11 BUN 38 H Creatinine 5.8 H Creat Clearance w eGFR 9.77 Random Glucose 96 D Lactic Acid Calcium 8.6 Magnesium 2.4 Total Bilirubin 0.3 D AST 22 ALT 6 L D Alkaline Phosphatase 184 H Creatine Kinase 71 Troponin I 0.10 H B-Natriuretic Peptide 33138.41 H Total Protein 6.9 Albumin 3.0 L Blood Type O POSITIVE Antibody Screen Negative 10/19/17 10/19/17 10/19/17 23:30 23:30 23:30 WBC 4.6 RBC 3.18 L Hgb 9.5 L Hct 29.9 L MCV 94.1 MCH 29.9 MCHC 31.8 L RDW 16.8 H Plt Count 162 MPV 9.6 Neutrophils % 68.7 Lymphocytes % 11.5 Monocytes % 14.5 H Eosinophils % 3.6 Basophils % 1.7 PT with INR 12.40 H INR 1.10 PTT (Actin FS) Sodium Potassium Chloride Carbon Dioxide Anion Gap BUN Creatinine Creat Clearance w eGFR Random Glucose Lactic Acid 0.9 Calcium Magnesium Total Bilirubin AST ALT Alkaline Phosphatase Creatine Kinase Troponin I B-Natriuretic Peptide Total Protein Albumin Blood Type Antibody Screen 10/19/17 10/19/17 23:30 23:30 WBC RBC Hgb Hct MCV MCH MCHC RDW Plt Count MPV Neutrophils % Lymphocytes % Monocytes % Eosinophils % Basophils % PT with INR INR PTT (Actin FS) Sodium Potassium Chloride Carbon Dioxide Anion Gap BUN Creatinine Creat Clearance w eGFR Random Glucose Lactic Acid Calcium Magnesium Cancelled Total Bilirubin AST ALT Alkaline Phosphatase Creatine Kinase Troponin I B-Natriuretic Peptide Cancelled Total Protein Albumin Blood Type Antibody Screen CBC, BMP 10/19/17 23:30 10/19/17 23:30 EKG:pacing rhythm, QTC 479, no st, t wave changes CXR pending reading CT chest pending reading ASSESSMENT/PLAN: 66 year old Male with PMHx significant for DM, HTN, HLD, CVA, CAD, ESRD, CHF, previous DVT,svc syndrom who frequents the hospital for pain medication, presented yesterday with swelling of parotid glands who left AMA on 10/18. 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 * cmp in AM * oligouric * # DM * Non compliant * ISS * BGM * un known home meds for DM * Diabetic diet #CHF * seems volum overloaded, crackles on Bases * continue home meds * * #CAD s/p CABG, Stent, pacemaker * trend trop, EKG * continue home meds * * #HTN * BP 170/73 * continue home meds * #HLD * Lipitor 20 po daily # Anemia , chronic 2/2 ESRD * H/H 9.5/29.9 at his base line * monitor # peripheral neuropathy * continue Gabapentin 100 po daily # FEN * on no fluids * E : monitor * N: diabetic low sodium diet # Proph * DVT: SCDS * GI : Protonic 40 mg po daily # dispo * admit to tele * code status: full code . Visit type - Emergency Visit Emergency Visit: Yes ED Registration Date: 10/20/17 Care time: The patient presented to the Emergency Department on the above date and was hospitalized for further evaluation of their emergent condition. - New Patient This patient is new to me today: Yes Date on this admission: 10/20/17 - Critical Care Critical Care patient: No
[2017-10-20] MEDS ORDERED: ACETAMINOPHEN 1000 MG/100 ML VIAL (NON FORMULARY) IVPB ONE (01:55)
--- NOTE | 2017-10-20 02:33 | PN ---
Teaching Attending Note Name of Resident: Lalo Campbell ATTENDING PHYSICIAN STATEMENT I saw and evaluated the patient. I reviewed the resident's note and discussed the case with the resident. I agree with the resident's findings and plan as documented. SUBJECTIVE: 67 yo M with hx. of HTN, HLD, CVA, DVT, DM II, CAD s/p CABG PPM, and stents, ESRD, HD T/TH/S, swelling of parotid glands who left AMA on 10/18. He presents to ED with chest pain, pain to bilateral LE, and Pain near HD catheter on Right chest wall. States pain is constant and 10/10. No shortness of breath OBJECTIVE: Physical: VS: Vital Signs Period Temp Pulse Resp BP Sys/Hinds Pulse Ox Last 24 Hr 64 14 170/73 97 GEN: NAD, resting in bed, AA0X3, Cachetic male resting in bed HEENT: Facial Edema L>R, echymosis of lower lip CARD: RRR S1, S2 RESP: Coarse breath sounds at bases ABD: BSx4, NTD to palpation EXT:- C/C/E CBCD WBC 4.6 K/mm3 (4.0-10.0) 10/19/17 23:30 RBC 3.18 M/mm3 (4.00-5.60) L 10/19/17 23:30 Hgb 9.5 GM/dL (11.7-16.9) L 10/19/17 23:30 Hct 29.9 % (35.4-49) L 10/19/17 23:30 MCV 94.1 fl (80-96) 10/19/17 23:30 MCHC 31.8 g/dl (32.0-35.9) L 10/19/17 23:30 RDW 16.8 % (11.9-15.9) H 10/19/17 23:30 Plt Count 162 K/MM3 (134-434) 10/19/17 23:30 MPV 9.6 fl (7.5-11.1) 10/19/17 23:30 CMP Sodium 139 mmol/L (136-145) 10/19/17 23:30 Potassium 4.5 mmol/L (3.5-5.1) 10/19/17 23:30 Chloride 101 mmol/L (98-107) 10/19/17 23:30 Carbon Dioxide 27 mmol/L (21-32) 10/19/17 23:30 Anion Gap 11 (8-16) 10/19/17 23:30 BUN 38 mg/dL (7-18) H 10/19/17 23:30 Creatinine 5.8 mg/dL (0.7-1.3) H 10/19/17 23:30 Creat Clearance w eGFR 9.77 (>60) 10/19/17 23:30 Random Glucose 96 mg/dL (74-106) D 10/19/17 23:30 Calcium 8.6 mg/dL (8.5-10.1) 10/19/17 23:30 Total Bilirubin 0.3 mg/dL (0.2-1.0) D 10/19/17 23:30 AST 22 U/L (15-37) 10/19/17 23:30 ALT 6 U/L (12-78) L D 10/19/17 23:30 Alkaline Phosphatase 184 U/L (45-117) H 10/19/17 23:30 Total Protein 6.9 g/dl (6.4-8.2) 10/19/17 23:30 Albumin 3.0 g/dl (3.4-5.0) L 10/19/17 23:30 CARDIAC ENZYMES Creatine Kinase 71 IU/L (39-308) 10/19/17 23:30 Troponin I 0.10 ng/ml (0.00-0.05) H 10/19/17 23:30 EKG: NSR QtC 479 ASSESSMENT AND PLAN: 67 yo M with hx. of HTN, HLD, CVA, DVT, DM II, CHF CAD s/p CABG PPM, and stents , ESRD, HD T//S, SVC syndrome swelling of parotid glands who left AMA on 10/18. He is being admitted for parotitis and for HD in AM. 1.) Enlarged Parotid- L. Neck edema - Clindamycin 600 IV Q 8 - ID consult 2.) Systolic Heart Failure - C/W Home meds - Trend Trop/EKG - Echo 3.) ESRD on HD - HD in AM - Nephro consult 4.) HTN- Uncontrolled - Continue home meds 5.) Elevated Troponin - Trend Trop/Ekg - Most likely due to demand 6.) CAD s/p CABG - C/W home meds 7.) DVT PPX -SCDS Place in Obs Tele
[2017-10-20] MEDS ORDERED: CLINDAMYCIN 600MG PREMIX IVPB 600 MG/50 ML BAG IVPB SCH (05:00)
[2017-10-20] MEDS ORDERED: CLINDAMYCIN 600MG PREMIX IVPB 600 MG/50 ML BAG IVPB ONE (05:42)
[2017-10-20] MEDS ORDERED: traMADol HCL 50 MG TABLET PO ONE (06:05)
[2017-10-20] MEDS ORDERED: INSULIN SLIDING SCALE (NOVOLOG) 1 VIAL SQ SCH (07:00)
[2017-10-20 09:07] LABS: BASO % 3.8 % (0-2.0); EOS % 5.2 % (0-4.5); HEMATOCRIT 29.7 % (35.4-49); HEMOGLOBIN 9.3 GM/dL (11.7-16.9); LYMPH % 11.5 % (8-40); MCH 29.4 pg (25.7-33.7); MCHC 31.3 g/dl (32.0-35.9); MEAN PLT VOLUME 9.3 fl (7.5-11.1); MONO % 15.7 % (3.8-10.2); NEUT % 63.8 % (42.8-82.8); PLATELET COUNT 147 K/MM3 (134-434); RBC 3.16 M/mm3 (4.00-5.60); RDW 16.7 % (11.9-15.9); WHITE BLOOD COUNT 3.9 K/mm3 (4.0-10.0)
[2017-10-20 09:32] LABS: ALBUMIN 2.8 g/dl (3.4-5.0); ALK PHOS 175 U/L (45-117); ANION GAP 10 (8-16); BILIRUBIN,TOTAL 0.3 mg/dL (0.2-1.0); BLOOD UREA NITROGEN 39 mg/dL (7-18); CALCIUM 8.1 mg/dL (8.5-10.1); CHLORIDE 103 mmol/L (98-107); CHOLESTEROL 90 mg/dL (50-200); CO2 24 mmol/L (21-32); CREATININE 6.1 mg/dL (0.7-1.3); GLUCOSE,RANDOM 117 mg/dL (74-106); HDL CHOLESTEROL 46 mg/dL (40-60); LDL CHOLESTEROL (ONLY SJRH) 40 mg/dL (5-100); POTASSIUM 4.6 mmol/L (3.5-5.1); SGOT/AST 22 U/L (15-37); SGPT/ALT 7 U/L (12-78); SODIUM 137 mmol/L (136-145); TOT PROT 6.6 g/dl (6.4-8.2); TRIGLYCERIDES 58 mg/dL (35-160)
[2017-10-20] MEDS: hydrALAZINE HCL 50 MG TABLET (FP) PO SCH ×2 (10:15→21:22)
[2017-10-20] MEDS: SEVELAMER CARBONATE 800 MG TAB (FP) PO SCH ×3 (10:15→21:28)
[2017-10-20] MEDS: TAMSULOSIN HCL 0.4 MG CAP.ER.24H (FP) PO SCH (10:15)
[2017-10-20] MEDS: CARVEDILOL 12.5 MG TABLET (FP) PO SCH ×2 (10:15→21:22)
[2017-10-20] MEDS: GABAPENTIN 100 MG CAPSULE (FP) PO SCH (10:16)
[2017-10-20] MEDS: ISOSORBIDE MONONITRATE 30 MG TAB.SR.24H (FP) PO SCH (10:16)
[2017-10-20] MEDS: PANTOPRAZOLE 40 MG TABLET (FP) PO SCH (10:16)
[2017-10-20] MEDS ORDERED: PIPERACILLIN/TAZOB 2.25 GM 2.25 GM/50 ML BAG IVPB SCH (11:15)
[2017-10-20] MEDS: INSULIN SLIDING SCALE (NOVOLOG) 1 VIAL SQ SCH ×2 (11:41→21:23)
[2017-10-20] MEDS ORDERED: PIPERACILLIN/TAZOBACTAM 2.25 GM VIAL IVPB ONE (11:42)
--- NOTE | 2017-10-20 13:25 | CONSULT ---
Consultation: REQUESTING PROVIDER: CONSULT REQUEST: We have been asked to medically evaluate this patient for parotitis. HISTORY OF PRESENT ILLNESS: 67 y/o M with PMH HTN, HLD, CVA, DVT, DM2, CHF, CAD, ESRD (Dialysis T//Thu), SVC syndrome, recurrent L parotitis, who presents to ED with severe pain in his legs for the past week. As per pt, he has also had L sided neck swelling during this time and pain at the site of his dialysis catheter by R IJ. Pt was last here on 10/17 for L sided face and neck swelling. He had a CT soft tissue/neck which revealed L enlarged parotid without mass. Pt was started on zosyn, vanco, and clindamycin, however left AMA. Today pt denies DIAZ, fever, chills, or changes in urinary or bowel fnc. Pt has returned today d/t "painful legs." He is a poor historian. While in the ED, pt is afebrile, without white count. Troponin elevated x 2. CRP 4.1, ESR pending. Pt received zosyn and clindamycin thus far. ID team consulted for parotitis. REVIEW OF SYSTEMS: CONSTITUTIONAL: Absent: fever, chills, diaphoresis, generalized weakness, malaise, loss of appetite, weight change HEENT: Absent: rhinorrhea, nasal congestion, throat pain, throat swelling, difficulty swallowing, mouth swelling, ear pain, eye pain, visual changes CARDIOVASCULAR: Absent: chest pain, syncope, palpitations, irregular heart rate, lightheadedness , peripheral edema RESPIRATORY: Absent: cough, shortness of breath, dyspnea with exertion, orthopnea, wheezing, stridor, hemoptysis GASTROINTESTINAL: Absent: abdominal pain, abdominal distension, nausea, vomiting, diarrhea, constipation, melena, hematochezia GENITOURINARY: Absent: dysuria, frequency, urgency, hesitancy, hematuria, flank pain, genital pain MUSCULOSKELETAL: +lower extremity pain Absent: myalgia, arthralgia, joint swelling, back pain, neck pain SKIN: Absent: rash, itching, pallor HEMATOLOGIC/IMMUNOLOGIC: Absent: easy bleeding, easy bruising, lymphadenopathy, frequent infections ENDOCRINE: Absent: unexplained weight gain, unexplained weight loss, heat intolerance, cold intolerance NEUROLOGIC: Absent: headache, focal weakness or paresthesias, dizziness, unsteady gait, seizure, mental status changes, bladder or bowel incontinence PSYCHIATRIC: Absent: anxiety, depression, suicidal or homicidal ideation, hallucinations. PHYSICAL EXAMINATION Vital Signs 10/20/17 11:20 Temperature 97.6 F Pulse Rate Pulse Rate [ 62 Left Apical] Respiratory 16 Rate Blood Pressure Blood Pressure 145/68 [Right Arm] O2 Sat by Pulse 100 Oximetry (%) GENERAL: Resting in bed, lethargic, AAOx2 (to self and location) in NAD. HEAD: L sided facial and neck edema - tender to palpation EYES: Pupils equal, round and reactive to light, extraocular movements intact, sclera anicteric. Periorbital edema and erythema. EARS, NOSE, THROAT: Ears normal, nares patent TEETH: poor dentition, discolored/bruised lower lip NECK: L sided edema, tender to palpation LUNGS: rhonchi appreciated in RUL, RLL HEART: Regular rate and rhythm, normal S1 and S2 without murmur, rub or gallop. ABDOMEN: Soft, nontender, mildly distended, normoactive bowel sounds, no guarding, no rebound LOWER EXTREMITIES: 2+ dorsalis pedis pulses, cachectic. Diffusely tender to palpation. No peripheral edema. NEUROLOGICAL: Cranial nerves II-XII intact. PSYCHIATRIC: lethargic Laboratory Results 10/20/17 10/20/17 10/20/17 03:36 09:00 09:00 WBC 3.9 L Hgb 9.3 L Hct 29.7 L Plt Count 147 Sodium 137 Potassium 4.6 Chloride 103 Carbon Dioxide 24 BUN 39 H Creatinine 6.1 H Hemoglobin A1c % AST 22 ALT 7 L Alkaline Phosphatase 175 H Troponin I 0.10 H 0.10 H C-Reactive Protein Random Vancomycin 10/20/17 10/20/17 10/20/17 09:00 09:00 09:00 WBC Hgb Hct Plt Count Sodium Potassium Chloride Carbon Dioxide BUN Creatinine Hemoglobin A1c % 4.7 L D AST ALT Alkaline Phosphatase Troponin I C-Reactive Protein 4.1 H D Random Vancomycin 11.192 Active Medications Generic Name Dose Route Start Last Admin Trade Name Freq PRN Reason Stop Dose Admin Acetaminophen 650 mg 10/20/17 02:51 Tylenol - PO Q4H PRN FEVER OR PAIN Atorvastatin Calcium 20 mg 10/20/17 22:00 Lipitor - PO HS NGOC Carvedilol 12.5 mg 10/20/17 10:00 10/20/17 10:15 Coreg - PO 12.5 mg BID NGOC Administration Gabapentin 100 mg 10/20/17 10:00 10/20/17 10:16 Neurontin - PO 100 mg DAILY NGOC Administration Hydralazine HCl 50 mg 10/20/17 10:00 10/20/17 10:15 Apresoline - PO 50 mg BID NGOC Administration Piperacillin/Tazobactam/Dextrose 2.25 gm in 50 mls @ 100 mls/hr 10/20/17 11: 15 10/20/17 11:42 Zosyn 2.25gm Ivpb (Premix) IVPB 10/20/17 22:29 100 mls/hr BID NGOC Administration Insulin Aspart 1 vial 10/20/17 11:00 10/20/17 11:41 Novolog Vial Sliding Scale - SQ Not Given ACHS [facility] Protocol Isosorbide Mononitrate 30 mg 10/20/17 10:00 10/20/17 10:16 Imdur - PO 30 mg DAILY NGOC Administration Pantoprazole Sodium 40 mg 10/20/17 10:00 10/20/17 10:16 Protonix - PO 40 mg DAILY NGOC Administration Piperacillin/Tazobactam/Dextrose 2.25 gm 10/21/17 10:00 Zosyn 2.25gm Ivpb (Premix) IVPB BID NGOC Sevelamer Carbonate 800 mg 10/20/17 08:00 10/20/17 12:13 Renvela - PO 800 mg TIDCM NGOC Administration Tamsulosin HCl 0.4 mg 10/20/17 08:30 10/20/17 10:15 Flomax - PO 0.4 mg DAILY@0830 NGOC Administration ASSESSMENT/PLAN: #Suppurative L parotitis -Received zosyn and clindamycin in ED thus far -Received 1 dose vanco on 10/17/17, most recent admission where pt left AMA -Today vanco level 11.192 -Will give Vanco 1g additional -For dialysis today -Will recheck level tomorrow -To apply warm compresses to affected area -F/u blood cx Thank you Margoth French MD PGY-1 ID Team Dispo: We will continue to follow the patient. Thank you for this consultative opportunity. Visit type - Emergency Visit Emergency Visit: Yes ED Registration Date: 10/20/17 Care time: The patient presented to the Emergency Department on the above date and was hospitalized for further evaluation of their emergent condition. - New Patient This patient is new to me today: Yes Date on this admission: 10/20/17 - Critical Care Critical Care patient: No
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
[2017-10-20] MEDS ORDERED: VANCOMYCIN 1,000 MG in DEXTROSE 5%-WATER - 250 ML IVPB ONE (15:00)
--- NOTE | 2017-10-20 15:11 | EKG ---
Test Reason : Blood Pressure : / mmHG Vent. Rate : 061 BPM Atrial Rate : 065 BPM P-R Int : 000 ms QRS Dur : 164 ms QT Int : 476 ms P-R-T Axes : 000 103 -09 degrees QTc Int : 479 ms Ventricular-paced rhythm Biventricular pacemaker detected ABNORMAL ECG WHEN COMPARED WITH ECG OF 17-OCT-2017 09:26, NO SIGNIFICANT CHANGE WAS FOUND Confirmed by Damion Hansen MD ([id number]) on 10/20/2017 3:10:50 PM Referred By: Confirmed By:Damion Hansen MD
--- NOTE | 2017-10-20 15:17 | PN ---
Teaching Attending Note Name of Resident: Margoth French ATTENDING PHYSICIAN STATEMENT I saw and evaluated the patient. I reviewed the resident's note and discussed the case with the resident. I agree with the resident's findings and plan as documented. SUBJECTIVE: 67 y/o diabetic male PMH ESRD evaluated for recurrent L parotitis Complains of generalized pain CT L parotid swelling No abscess or mass OBJECTIVE: Chronically ill appearing + tender L parotid swelling ASSESSMENT AND PLAN: Recurrent L parotitis ESRD DM Obtain BC Vancomycin 1gm IVPB x 1 Repeat vancomycin level at dialysis HIV testing Bx parotid if no significant improvement on antibiotics
[2017-10-20] MEDS ORDERED: EPOETIN ALFA 2,000 UNIT/1 ML VIAL IVPUSH ONE (15:30)
[2017-10-20] MEDS ORDERED: INSULIN (NOVOLOG) ASPART 100 UNITS/ML 10ML VIAL ONE (21:03)
[2017-10-20] MEDS: ATORVASTATIN CA 20 MG TABLET (FP) PO SCH (21:22)
[2017-10-20] MEDS: ACETAMINOPHEN 325 MG TABLET (FP) PO PRN (22:17)
[2017-10-21] MEDS: TAMSULOSIN HCL 0.4 MG CAP.ER.24H (FP) PO SCH (08:23)
[2017-10-21] MEDS: SEVELAMER CARBONATE 800 MG TAB (FP) PO SCH ×3 (08:23→17:00)
[2017-10-21] MEDS: GABAPENTIN 100 MG CAPSULE (FP) PO SCH (09:19)
[2017-10-21] MEDS: hydrALAZINE HCL 50 MG TABLET (FP) PO SCH ×2 (09:19→21:46)
[2017-10-21] MEDS: CARVEDILOL 12.5 MG TABLET (FP) PO SCH ×2 (09:19→21:46)
[2017-10-21] MEDS: ISOSORBIDE MONONITRATE 30 MG TAB.SR.24H (FP) PO SCH (09:19)
[2017-10-21] MEDS: PANTOPRAZOLE 40 MG TABLET (FP) PO SCH (09:20)
[2017-10-21] MEDS: ACETAMINOPHEN 325 MG TABLET (FP) PO PRN (09:21)
--- NOTE | 2017-10-21 09:53 | PN ---
Physical Exam: SUBJECTIVE: Patient seen and examined at bedside. Today, pt c/o L sided face and neck pain, abdominal pain, and pain in his lower extremities. Asking for more pain meds. Afebrile, no acute events overnight. Pt had dialysis yesterday. OBJECTIVE: Vital Signs Period Temp Pulse Resp BP Sys/Hinds Pulse Ox Last 24 Hr 97.4 F-98.7 F 60-88 16-20 70-158/30-73 100-100 GENERAL: The patient is lying in bed. awake, alert, and fully oriented HEAD: decreased edema L neck/face. non-tender to palpation. EYES: PERRL, extraocular movements intact, sclera anicteric, conjunctiva clear. NECK: Trachea midline, supple. LUNGS: Breath sounds equal, clear to auscultation bilaterally, no wheezes, no crackles, no accessory muscle use. HEART: Regular rate and rhythm, S1, S2 without murmur, rub or gallop. ABDOMEN: Soft, nontender, nondistended, normoactive bowel sounds, no guarding, no rebound EXTREMITIES: 2+ posterior tibial pulses, no edema. NEUROLOGICAL: Cranial nerves II through XII grossly intact. Laboratory Results - last 24 hr 10/20/17 10/20/17 10/20/17 09:00 11:20 11:36 ESR 34 H POC Glucometer 112.25028 Troponin I 0.10 H Random Vancomycin 10/20/17 10/21/17 10/21/17 21:21 05:42 07:00 ESR POC Glucometer 112 106 Troponin I Random Vancomycin 14.190 Active Medications Generic Name Dose Route Start Last Admin Trade Name Mary PRN Reason Stop Dose Admin Acetaminophen 650 mg 10/20/17 02:51 10/21/17 09:21 Tylenol - PO 650 mg Q4H PRN Administration FEVER OR PAIN Atorvastatin Calcium 20 mg 10/20/17 22:00 10/20/17 21:22 Lipitor - PO 20 mg HS NGOC Administration Carvedilol 12.5 mg 10/20/17 10:00 10/21/17 09:19 Coreg - PO 12.5 mg BID NGOC Administration Gabapentin 100 mg 10/20/17 10:00 10/21/17 09:19 Neurontin - PO 100 mg DAILY NGOC Administration Hydralazine HCl 50 mg 10/20/17 10:00 10/21/17 09:19 Apresoline - PO 50 mg BID NGOC Administration Insulin Aspart 1 vial 10/20/17 11:00 10/20/17 21:23 Novolog Vial Sliding Scale - SQ Not Given ACHS [facility] Protocol Isosorbide Mononitrate 30 mg 10/20/17 10:00 10/21/17 09:19 Imdur - PO 30 mg DAILY NGOC Administration Pantoprazole Sodium 40 mg 10/20/17 10:00 10/21/17 09:20 Protonix - PO 40 mg DAILY NGOC Administration Sevelamer Carbonate 800 mg 10/20/17 08:00 10/21/17 08:23 Renvela - PO 800 mg TIDCM NGOC Administration Tamsulosin HCl 0.4 mg 10/20/17 08:30 10/21/17 08:23 Flomax - PO 0.4 mg DAILY@0830 NGOC Administration ASSESSMENT/PLAN: #Nonsuppurative L parotitis -decreased edema L face/neck, without tenderness to palpation -Most recent vanco level 14.19 -Vanco 1g IVPB x one more dose to be given today -Will redose after vanco level tomorrow -Last dialysis session 10/20/17 -F/u blood cx -F/u HIV test Thank you Margoth French MD PGY-1 ID Team Visit type - Emergency Visit Emergency Visit: No - New Patient This patient is new to me today: No - Critical Care Critical Care patient: No
[2017-10-21] MEDS ORDERED: PIPERACILLIN/TAZOB 2.25 GM/50 ML PREMIX BAG IVPB SCH (10:00)
[2017-10-21] MEDS ORDERED: VANCOMYCIN 1,000 MG in DEXTROSE 5%-WATER - 250 ML IVPB ONE (11:30)
[2017-10-21] MEDS: INSULIN SLIDING SCALE (NOVOLOG) 1 VIAL SQ SCH ×4 (12:04→21:49)
--- NOTE | 2017-10-21 12:42 | PN ---
Physical Exam: SUBJECTIVE: Patient seen and examined. He is screaming out in pain and had a bowel movement. OBJECTIVE: Vital Signs Period Temp Pulse Resp BP Sys/Hinds Pulse Ox Last 24 Hr 97.4 F-98.7 F 60-88 18-20 70-131/30-73 PE Neuro: alert, awake, cn 2-12intact HEENT: neck swelling, tenderness to R neck Pulm: clear, no sob CV: s1 s2 rrr Abd: s nt nd + bs Ext: warm, no le edema Skin: R shoulder ecchymosis, + permacath Laboratory Results - last 24 hr 10/20/17 10/20/17 10/21/17 09:00 21:21 05:42 ESR 34 H POC Glucometer 112 106 Random Vancomycin 10/21/17 07:00 ESR POC Glucometer Random Vancomycin 14.190 Active Medications Generic Name Dose Route Start Last Admin Trade Name Freq PRN Reason Stop Dose Admin Acetaminophen 650 mg 10/20/17 02:51 10/21/17 09:21 Tylenol - PO 650 mg Q4H PRN Administration FEVER OR PAIN Atorvastatin Calcium 20 mg 10/20/17 22:00 10/20/17 21:22 Lipitor - PO 20 mg HS NGOC Administration Carvedilol 12.5 mg 10/20/17 10:00 10/21/17 09:19 Coreg - PO 12.5 mg BID NGOC Administration Gabapentin 100 mg 10/20/17 10:00 10/21/17 09:19 Neurontin - PO 100 mg DAILY NGOC Administration Hydralazine HCl 50 mg 10/20/17 10:00 10/21/17 09:19 Apresoline - PO 50 mg BID NGOC Administration Vancomycin HCl 1,000 mg/ 250 mls @ 200 mls/hr 10/21/17 11:30 Dextrose IVPB 10/21/17 12:44 ONCE ONE Insulin Aspart 1 vial 10/20/17 11:00 10/21/17 12:04 Novolog Vial Sliding Scale - SQ Not Given ACHS [facility] Protocol Isosorbide Mononitrate 30 mg 10/20/17 10:00 10/21/17 09:19 Imdur - PO 30 mg DAILY [facility] Administration Pantoprazole Sodium 40 mg 10/20/17 10:00 10/21/17 09:20 Protonix - PO 40 mg DAILY [facility] Administration Sevelamer Carbonate 800 mg 10/20/17 08:00 10/21/17 12:14 Renvela - PO 800 mg TIDCM [facility] Administration Tamsulosin HCl 0.4 mg 10/20/17 08:30 10/21/17 08:23 Flomax - PO 0.4 mg DAILY@0830 [facility] Administration Tramadol HCl 50 mg 10/21/17 10:36 Ultram - PO Q6H PRN PAIN Assessment: 67 year old male anemia, HTN, HLD, CVA, DVT, CAD s/p CAGB, pacemaker and stents, CHF, DM, ESRD (dialysis T,R,S and still makes urine), enlarged prostate and anxiety admitted after signing out 10/18 with generalized pain and chest discomfort. Plan: 1. L Neck swelling/ L parotitis - Vanco today per ID - Dose per levels - If does not improve will need possible biopsy - Blood cx pending 2. ESRD, HD T S - For HD tomorrow - HD per Renal service 3. HTN - Continue home Iso MN - Hydralazine 50mg BID - Coreg 12.5mg BID 4. Systolic HF - Iso MN 5. Pain - Ultram 6. Chest pain - Trops x3 flat Visit type - Emergency Visit Emergency Visit: Yes ED Registration Date: 10/20/17 Care time: The patient presented to the Emergency Department on the above date and was hospitalized for further evaluation of their emergent condition. - New Patient This patient is new to me today: Yes Date on this admission: 10/21/17 - Critical Care Critical Care patient: No
[2017-10-21] MEDS: traMADol HCL 50 MG TABLET PO PRN (13:02)
--- NOTE | 2017-10-21 13:08 | PN ---
Progress Note, Physician History of Present Illness: Pt seen and examined at bedside. He is awake and complaining of generalized pain. - Current Medication List Current Medications: Active Medications Acetaminophen (Tylenol -) 650 mg PO Q4H PRN PRN Reason: FEVER OR PAIN Last Admin: 10/21/17 09:21 Dose: 650 mg Atorvastatin Calcium (Lipitor -) 20 mg PO HS [facility] Last Admin: 10/20/17 21:22 Dose: 20 mg Carvedilol (Coreg -) 12.5 mg PO BID [facility] Last Admin: 10/21/17 09:19 Dose: 12.5 mg Gabapentin (Neurontin -) 100 mg PO DAILY [facility] Last Admin: 10/21/17 09:19 Dose: 100 mg Hydralazine HCl (Apresoline -) 50 mg PO BID [facility] Last Admin: 10/21/17 09:19 Dose: 50 mg Insulin Aspart (Novolog Vial Sliding Scale -) 1 vial SQ ACHS [facility] PRN Reason: Protocol Last Admin: 10/21/17 12:04 Dose: Not Given Isosorbide Mononitrate (Imdur -) 30 mg PO DAILY [facility] Last Admin: 10/21/17 09:19 Dose: 30 mg Pantoprazole Sodium (Protonix -) 40 mg PO DAILY [facility] Last Admin: 10/21/17 09:20 Dose: 40 mg Sevelamer Carbonate (Renvela -) 800 mg PO TIDCM [facility] Last Admin: 10/21/17 12:14 Dose: 800 mg Tamsulosin HCl (Flomax -) 0.4 mg PO DAILY@0830 [facility] Last Admin: 10/21/17 08:23 Dose: 0.4 mg Tramadol HCl (Ultram -) 50 mg PO Q6H PRN PRN Reason: PAIN Last Admin: 10/21/17 13:02 Dose: 50 mg - Objective Vital Signs: Vital Signs Temperature 97.7 F 10/21/17 08:00 Pulse Rate 60 10/21/17 08:00 Respiratory Rate 18 10/21/17 08:00 Blood Pressure 131/73 10/21/17 08:00 O2 Sat by Pulse Oximetry (%) 100 10/20/17 11:20 Constitutional: Yes: Anxious Eyes: Yes: Conjunctiva Clear HENT: Yes: Atraumatic Neck: Yes: Supple Cardiovascular: Yes: S1, S2 Respiratory: Yes: CTA Bilaterally Gastrointestinal: Yes: Soft Genitourinary: Yes: Incontinence Musculoskeletal: Yes: Muscle Weakness Edema: No Neurological: Yes: Oriented Labs: CBC, BMP 10/20/17 09:00 10/20/17 09:00 INR, PTT INR 1.10 (0.82-1.09) 10/19/17 23:30 Problem List - Problems (1) End stage renal disease Code(s): N18.6 - END STAGE RENAL DISEASE (2) CAD (coronary artery disease) Code(s): I25.10 - ATHSCL HEART DISEASE OF [place] CORONARY ARTERY W/O ANG PCTRS Assessment/Plan Current Medications Generic Name Dose Route Start Last Admin Trade Name Freq PRN Reason Stop Dose Admin Acetaminophen 650 mg 10/20/17 02:51 10/21/17 09:21 Tylenol - PO 650 mg Q4H PRN Administration FEVER OR PAIN Atorvastatin Calcium 20 mg 10/20/17 22:00 10/20/17 21:22 Lipitor - PO 20 mg HS NGOC Administration Carvedilol 12.5 mg 10/20/17 10:00 10/21/17 09:19 Coreg - PO 12.5 mg BID NGOC Administration Gabapentin 100 mg 10/20/17 10:00 10/21/17 09:19 Neurontin - PO 100 mg DAILY [facility] Administration Hydralazine HCl 50 mg 10/20/17 10:00 10/21/17 09:19 Apresoline - PO 50 mg BID NGOC Administration Insulin Aspart 1 vial 10/20/17 11:00 10/21/17 12:04 Novolog Vial Sliding Scale - SQ Not Given ACHS [facility] Protocol Isosorbide Mononitrate 30 mg 10/20/17 10:00 10/21/17 09:19 Imdur - PO 30 mg DAILY [facility] Administration Pantoprazole Sodium 40 mg 10/20/17 10:00 10/21/17 09:20 Protonix - PO 40 mg DAILY [facility] Administration Sevelamer Carbonate 800 mg 10/20/17 08:00 10/21/17 12:14 Renvela - PO 800 mg TIDCM [facility] Administration Tamsulosin HCl 0.4 mg 10/20/17 08:30 10/21/17 08:23 Flomax - PO 0.4 mg DAILY@0830 [facility] Administration Tramadol HCl 50 mg 10/21/17 10:36 01/10/18 13:02 Ultram - PO 50 mg Q6H PRN Administration PAIN Impression 1. ESRD 2. CAD 3. HTN 4. narcotic dependence 5. non compliance 6. pleural effusions 7. anemia 8. chest pain 9. DVT 10. GI Bleed 11. neck pain 12. parotitis Plan - HD in am - abx per ID - discussed with primary team - epogen for anemia - will follow Dr Campos
--- NOTE | 2017-10-21 21:30 | PN ---
Teaching Attending Note Name of Resident: Margoth French ATTENDING PHYSICIAN STATEMENT I saw and evaluated the patient. I reviewed the resident's note and discussed the case with the resident. I agree with the resident's findings and plan as documented. SUBJECTIVE: OBJECTIVE: ASSESSMENT AND PLAN: L parotitis ESRD Await cultures Redose vancomycin repeat vancomycin level am
[2017-10-21] MEDS: ATORVASTATIN CA 20 MG TABLET (FP) PO SCH (21:46)
[2017-10-22] MEDS: traMADol HCL 50 MG TABLET PO PRN ×2 (03:45→20:00)
[2017-10-22] MEDS: INSULIN SLIDING SCALE (NOVOLOG) 1 VIAL SQ SCH ×4 (06:25→21:33)
[2017-10-22] MEDS: TAMSULOSIN HCL 0.4 MG CAP.ER.24H (FP) PO SCH (07:53)
[2017-10-22] MEDS: SEVELAMER CARBONATE 800 MG TAB (FP) PO SCH ×3 (07:53→17:25)
--- NOTE | 2017-10-22 10:21 | PN ---
Physical Exam: SUBJECTIVE: Patient seen and examined at bedside. In good spirits this morning, states he is feeling well and no longer has pain in his legs. Received pain meds last night. Still c/o feeling of facial/head edema and five episodes of non -bloody, liquid BMs yesterday during the day. Denies DIAZ, fever, chills, or any other physical complaints. Receiving dialysis. Overnight, pt afebrile, however belligerent. OBJECTIVE: Vital Signs Period Temp Pulse Resp BP Sys/Hinds Pulse Ox Last 24 Hr 97.3 F-97.7 F 59-60 20-21 117-130/56-75 95 GENERAL: The patient is resting in bed. awake, alert, and fully oriented, in no acute distress. HEAD: Normal with no signs of trauma. Without tenderness to palpation today (L head/neck) EYES: PERRL, extraocular movements intact, sclera anicteric, conjunctiva clear. NECK: Trachea midline, supple. LUNGS: Breath sounds equal, clear to auscultation bilaterally, no wheezes, no crackles, no accessory muscle use. HEART: Regular rate and rhythm, S1, S2 without murmur, rub or gallop. ABDOMEN: Soft, nontender, nondistended, normoactive bowel sounds, no guarding EXTREMITIES: 2+ posterior tibial pulses, no edema. NEUROLOGICAL: Cranial nerves II through XII grossly intact. Laboratory Results - last 24 hr 10/21/17 10/21/17 10/21/17 12:03 15:45 17:11 POC Glucometer 138 193 Random Vancomycin HIV 1&2 Antibody Screen Negative HIV P24 Antigen Negative 10/21/17 10/22/17 10/22/17 21:48 06:25 07:55 POC Glucometer 114 128 Random Vancomycin 26.958 HIV 1&2 Antibody Screen HIV P24 Antigen Microbiology -Blood cx: pending Active Medications Generic Name Dose Route Start Last Admin Trade Name Freq PRN Reason Stop Dose Admin Acetaminophen 650 mg 10/20/17 02:51 10/21/17 09:21 Tylenol - PO 650 mg Q4H PRN Administration FEVER OR PAIN Atorvastatin Calcium 20 mg 10/20/17 22:00 10/21/17 21:46 Lipitor - PO 20 mg HS NGOC Administration Carvedilol 12.5 mg 10/20/17 10:00 10/21/17 21:46 Coreg - PO 12.5 mg BID NGOC Administration Epoetin Devin unit 10/22/17 13:08 Epogen - IVPUSH 10/22/17 13:09 ONCE ONE Gabapentin 100 mg 10/20/17 10:00 10/21/17 09:19 Neurontin - PO 100 mg DAILY NGOC Administration Hydralazine HCl 50 mg 10/20/17 10:00 10/21/17 21:46 Apresoline - PO 50 mg BID NGOC Administration Insulin Aspart 1 vial 10/20/17 11:00 10/22/17 06:25 Novolog Vial Sliding Scale - SQ Not Given ACHS NGOC Protocol Isosorbide Mononitrate 30 mg 10/20/17 10:00 10/21/17 09:19 Imdur - PO 30 mg DAILY NGOC Administration Pantoprazole Sodium 40 mg 10/20/17 10:00 10/21/17 09:20 Protonix - PO 40 mg DAILY NGOC Administration Sevelamer Carbonate 800 mg 10/20/17 08:00 10/22/17 07:53 Renvela - PO 800 mg TIDCM NGOC Administration Tamsulosin HCl 0.4 mg 10/20/17 08:30 10/22/17 07:53 Flomax - PO 0.4 mg DAILY@0830 NGOC Administration Tramadol HCl 50 mg 10/21/17 10:36 10/22/17 03:45 Ultram - PO 50 mg Q6H PRN Administration PAIN ASSESSMENT/PLAN: #Nonsuppurative L parotitis -Most recent vanco level 26.95 -will hold vanco and recheck level tomorrow -dialysis session today 10/22/17 -Blood cx- pending -HIV (-) -C.diff toxin, ag - sent d/t diarrhea Thank you Margoth French MD PGY-1 ID Team Visit type - Emergency Visit Emergency Visit: No - New Patient This patient is new to me today: No - Critical Care Critical Care patient: No
[2017-10-22 11:59] LABS: HEMATOCRIT 28.1 % (35.4-49); HEMOGLOBIN 8.7 GM/dL (11.7-16.9); MCH 29.5 pg (25.7-33.7); MCHC 30.8 g/dl (32.0-35.9); MEAN CELL VOLUME 95.6 fl (80-96); MEAN PLT VOLUME 9.4 fl (7.5-11.1); PLATELET COUNT 136 K/MM3 (134-434); RBC 2.94 M/mm3 (4.00-5.60); RDW 17.3 % (11.9-15.9); WHITE BLOOD COUNT 3.5 K/mm3 (4.0-10.0)
[2017-10-22] MEDS ORDERED: EPOETIN ALFA 2,000 UNIT/1 ML VIAL IVPUSH ONE (13:08)
--- NOTE | 2017-10-22 13:14 | PN ---
Physical Exam: SUBJECTIVE: Patient seen and examined at the bedside. He denies any discomfort or pain. States his left arm is painful at times. OBJECTIVE: Left arm edema noted, painful with movement, will doppler Patient's last doppler study was on 07/08/2017 as noted below For dialysis today Vital Signs Period Temp Pulse Resp BP Sys/Hinds Pulse Ox Last 24 Hr 97.3 F-97.7 F 59-60 20-21 117-130/56-75 95 GENERAL: The patient is awake, alert, and fully oriented, in no acute distress. HEAD: Normal with no signs of trauma. EYES: PERRL, extraocular movements intact, sclera anicteric, conjunctiva clear. No ptosis. ENT: Ears normal, nares patent, oropharynx clear without exudates, moist mucous membranes. NECK: Trachea midline, full range of motion, supple. LUNGS: diminished breath sounds bilaterally ABDOMEN: Soft, nontender, nondistended, normoactive bowel sounds, no guarding, no rebound, no hepatosplenomegaly, no masses. LOWER EXTREMITIES: no edema. UPPER EXT: left arm edema, + pain, doppler ordered, right shiley cath for dialysis NEUROLOGICAL: Normal speech, gait not observed. PSYCH: Normal mood, normal affect. Laboratory Results - last 24 hr 10/21/17 10/21/17 10/21/17 15:45 17:11 21:48 WBC RBC Hgb Hct MCV MCH MCHC RDW Plt Count MPV POC Glucometer 193 114 Random Vancomycin HIV 1&2 Antibody Screen Negative HIV P24 Antigen Negative 10/22/17 10/22/17 10/22/17 06:25 07:55 09:50 WBC 3.5 L RBC 2.94 L Hgb 8.7 L Hct 28.1 L MCV 95.6 MCH 29.5 MCHC 30.8 L RDW 17.3 H Plt Count 136 MPV 9.4 POC Glucometer 128 Random Vancomycin 26.958 HIV 1&2 Antibody Screen HIV P24 Antigen Active Medications Generic Name Dose Route Start Last Admin Trade Name Freq PRN Reason Stop Dose Admin Acetaminophen 650 mg 10/20/17 02:51 10/21/17 09:21 Tylenol - PO 650 mg Q4H PRN Administration FEVER OR PAIN Atorvastatin Calcium 20 mg 10/20/17 22:00 10/21/17 21:46 Lipitor - PO 20 mg HS NGOC Administration Carvedilol 12.5 mg 10/20/17 10:00 10/21/17 21:46 Coreg - PO 12.5 mg BID NGOC Administration Epoetin Devin unit 10/22/17 13:08 Epogen - IVPUSH 10/22/17 13:09 ONCE ONE Gabapentin 100 mg 10/20/17 10:00 10/21/17 09:19 Neurontin - PO 100 mg DAILY NGOC Administration Hydralazine HCl 50 mg 10/20/17 10:00 10/21/17 21:46 Apresoline - PO 50 mg BID NGOC Administration Insulin Aspart 1 vial 10/20/17 11:00 10/22/17 06:25 Novolog Vial Sliding Scale - SQ Not Given ACHS [facility] Protocol Isosorbide Mononitrate 30 mg 10/20/17 10:00 10/21/17 09:19 Imdur - PO 30 mg DAILY NGOC Administration Pantoprazole Sodium 40 mg 10/20/17 10:00 10/21/17 09:20 Protonix - PO 40 mg DAILY NGOC Administration Sevelamer Carbonate 800 mg 10/20/17 08:00 10/22/17 07:53 Renvela - PO 800 mg TIDCM NGOC Administration Tamsulosin HCl 0.4 mg 10/20/17 08:30 10/22/17 07:53 Flomax - PO 0.4 mg DAILY@0830 NGOC Administration Tramadol HCl 50 mg 10/21/17 10:36 10/22/17 03:45 Ultram - PO 50 mg Q6H PRN Administration PAIN ASSESSMENT/PLAN: Patient is a 67 year old male with a significant past medical history of anemia , HTN, HLD, CVA, DVT, CAD s/p CABG, pacemaker, cardiac stents, CHF, DM, ESRD ( dialysis Tues,THR,Sat), enlarged prostate and anxiety. He was admitted on 2017 for left neck swelling/left parotitis. Imaging: CT/Soft tissue neck CT with contrast 10/17/2017: interval worsening diffuse soft tissue swelling and subcutanous edema, enlarged left parotid gland w/o evidence of discrete mass, no drainable collection identified. Ultrasound/Duplex vascular 2 arms 07/08/2017: There is a thrombus in the righ internal jugular vein with only minimal flow seen around the thrombus. Right internal vein thromboses, right upper basilic vein thrombosis Left arm vascular ultrasound 10/22/2017: pending read Vascular: Left arm edema/swelling/rule out DVT Has had chronic DVTs History of right basilic vein clot on doppler of Also has hx of GI bleeds in the recent past Left arm doppler to rule out DVT ID: L Neck swelling/ L parotitis Vanco renally dosed per ID Possible biopsy if not improving with IV antibiotics Blood cultures pending ID following Renal: ESRD, HD T TH S Dialysis today vai right shiley permacath Renal following Cardiology: Hypertension, Coreg 12.5mg BID, Hydralazine BOD Systolic HF On Isosorbide Mononitrate 30mg daily Chest Pain Denies any further chest pain or shortness of breath one exam Trops x 3 flat trending Monitor F.E.N. Fluids: tolerating PO Electrolytes: monitor Nutrition: renal diet. Prophylaxis: DVT: SCDS GI: deferred. Disposition. full code Visit type - Emergency Visit Emergency Visit: Yes ED Registration Date: 10/20/17 Care time: The patient presented to the Emergency Department on the above date and was hospitalized for further evaluation of their emergent condition. - New Patient This patient is new to me today: Yes Date on this admission: 10/22/17 - Critical Care Critical Care patient: No - Discharge Referral Referred to [facility] No
[2017-10-22] MEDS: PANTOPRAZOLE 40 MG TABLET (FP) PO SCH (14:34)
[2017-10-22] MEDS: hydrALAZINE HCL 50 MG TABLET (FP) PO SCH ×2 (14:34→21:29)
[2017-10-22] MEDS: ISOSORBIDE MONONITRATE 30 MG TAB.SR.24H (FP) PO SCH (14:34)
[2017-10-22] MEDS: GABAPENTIN 100 MG CAPSULE (FP) PO SCH (14:34)
[2017-10-22] MEDS: CARVEDILOL 12.5 MG TABLET (FP) PO SCH ×2 (14:34→21:29)
--- NOTE | 2017-10-22 14:49 | PN ---
Progress Note, Physician History of Present Illness: Pt seen and examined at bedside. He is awake and alert. He denies shortness of breath. He tolerated HD. - Current Medication List Current Medications: Active Medications Acetaminophen (Tylenol -) 650 mg PO Q4H PRN PRN Reason: FEVER OR PAIN Last Admin: 10/21/17 09:21 Dose: 650 mg Atorvastatin Calcium (Lipitor -) 20 mg PO HS [facility] Last Admin: 10/21/17 21:46 Dose: 20 mg Carvedilol (Coreg -) 12.5 mg PO BID [facility] Last Admin: 10/22/17 14:34 Dose: Not Given Epoetin Devin (Epogen -) unit IVPUSH ONCE ONE Stop: 10/22/17 13:09 Gabapentin (Neurontin -) 100 mg PO DAILY [facility] Last Admin: 10/22/17 14:34 Dose: Not Given Hydralazine HCl (Apresoline -) 50 mg PO BID [facility] Last Admin: 10/22/17 14:34 Dose: Not Given Insulin Aspart (Novolog Vial Sliding Scale -) 1 vial SQ ACHS [facility] PRN Reason: Protocol Last Admin: 10/22/17 14:33 Dose: Not Given Isosorbide Mononitrate (Imdur -) 30 mg PO DAILY [facility] Last Admin: 10/22/17 14:34 Dose: Not Given Pantoprazole Sodium (Protonix -) 40 mg PO DAILY [facility] Last Admin: 10/22/17 14:34 Dose: Not Given Sevelamer Carbonate (Renvela -) 800 mg PO TIDCM [facility] Last Admin: 10/22/17 14:34 Dose: Not Given Tamsulosin HCl (Flomax -) 0.4 mg PO DAILY@0830 [facility] Last Admin: 10/22/17 07:53 Dose: 0.4 mg Tramadol HCl (Ultram -) 50 mg PO Q6H PRN PRN Reason: PAIN Last Admin: 10/22/17 03:45 Dose: 50 mg - Objective Vital Signs: Vital Signs Temperature 98.0 F 10/22/17 09:45 Pulse Rate 60 10/22/17 13:10 Respiratory Rate 18 10/22/17 13:10 Blood Pressure 148/62 10/22/17 13:10 O2 Sat by Pulse Oximetry (%) 95 10/21/17 21:00 Constitutional: Yes: Calm Eyes: Yes: Conjunctiva Clear HENT: Yes: Atraumatic Neck: Yes: Supple Cardiovascular: Yes: S1, S2 Respiratory: Yes: CTA Bilaterally Gastrointestinal: Yes: Soft Genitourinary: Yes: WNL Musculoskeletal: Yes: Muscle Weakness Edema: Yes Edema: LUE: 1+, RUE: 1+ Neurological: Yes: Oriented Psychiatric: Yes: Oriented Labs: CBC, BMP 10/22/17 09:50 INR, PTT INR 1.10 (0.82-1.09) 10/19/17 23:30 Problem List - Problems (1) End stage renal disease Code(s): N18.6 - END STAGE RENAL DISEASE (2) CAD (coronary artery disease) Code(s): I25.10 - ATHSCL HEART DISEASE OF [place] CORONARY ARTERY W/O ANG PCTRS Assessment/Plan Current Medications Generic Name Dose Route Start Last Admin Trade Name Freq PRN Reason Stop Dose Admin Acetaminophen 650 mg 10/20/17 02:51 10/21/17 09:21 Tylenol - PO 650 mg Q4H PRN Administration FEVER OR PAIN Atorvastatin Calcium 20 mg 10/20/17 22:00 10/21/17 21:46 Lipitor - PO 20 mg HS NGOC Administration Carvedilol 12.5 mg 10/20/17 10:00 10/22/17 14:34 Coreg - PO Not Given BID [facility] Epoetin Devin unit 10/22/17 13:08 Epogen - IVPUSH 10/22/17 13:09 ONCE ONE Gabapentin 100 mg 10/20/17 10:00 10/22/17 14:34 Neurontin - PO Not Given DAILY [facility] Hydralazine HCl 50 mg 10/20/17 10:00 10/22/17 14:34 Apresoline - PO Not Given BID [facility] Insulin Aspart 1 vial 10/20/17 11:00 10/22/17 14:33 Novolog Vial Sliding Scale - SQ Not Given ACHS [facility] Protocol Isosorbide Mononitrate 30 mg 10/20/17 10:00 10/22/17 14:34 Imdur - PO Not Given DAILY [facility] Pantoprazole Sodium 40 mg 10/20/17 10:00 10/22/17 14:34 Protonix - PO Not Given DAILY [facility] Sevelamer Carbonate 800 mg 10/20/17 08:00 10/22/17 14:34 Renvela - PO Not Given TIDCM NGOC Tamsulosin HCl 0.4 mg 10/20/17 08:30 10/22/17 07:53 Flomax - PO 0.4 mg DAILY@0830 [facility] Administration Tramadol HCl 50 mg 10/21/17 10:36 10/22/17 03:45 Ultram - PO 50 mg Q6H PRN Administration PAIN Impression 1. ESRD 2. CAD 3. HTN 4. narcotic dependence 5. non compliance 6. pleural effusions 7. anemia 8. chest pain 9. DVT 10. GI Bleed 11. neck pain 12. parotitis Plan - HD today - cont current meds - abx per ID - epogen for anemia - will follow Dr Campos
[2017-10-22 15:30] LABS: ANION GAP 4 (8-16); BLOOD UREA NITROGEN 26 mg/dL (7-18); CALCIUM 7.9 mg/dL (8.5-10.1); CHLORIDE 102 mmol/L (98-107); CO2 33 mmol/L (21-32); CREATININE 4.8 mg/dL (0.7-1.3); GLUCOSE,RANDOM 104 mg/dL (74-106); POTASSIUM 4.3 mmol/L (3.5-5.1); SODIUM 139 mmol/L (136-145)
--- NOTE | 2017-10-22 16:40 | PN ---
Teaching Attending Note Name of Resident: Margoth French ATTENDING PHYSICIAN STATEMENT I saw and evaluated the patient. I reviewed the resident's note and discussed the case with the resident. I agree with the resident's findings and plan as documented. SUBJECTIVE: More comfortable today No c/o L neck pain No fever/ chills BC prelim (-) HIV (-) OBJECTIVE: Awake,alert Chronically ill appearing decreased L parotid swelling Cor S1S2 Lungs clear Abdomen soft, non tender no pedal edema ASSESSMENT AND PLAN: L parotitis ESRD Leukopenia/thrombocytopenia/ eosinophilia Vancomycin level theraputic Repeat level, CBC am
[2017-10-22] MEDS: ATORVASTATIN CA 20 MG TABLET (FP) PO SCH (21:29)
[2017-10-23 06:13] VITALS: BP 127/62; PULSE 60; TEMP 97.7
[2017-10-23] MEDS: INSULIN SLIDING SCALE (NOVOLOG) 1 VIAL SQ SCH (06:16)
[2017-10-23 06:22] LABS: BASO % 1.1 % (0-2.0); EOS % 6.1 % (0-4.5); HEMATOCRIT 27.4 % (35.4-49); HEMOGLOBIN 8.7 GM/dL (11.7-16.9); LYMPH % 12.1 % (8-40); MCH 30.2 pg (25.7-33.7); MCHC 31.9 g/dl (32.0-35.9); MEAN CELL VOLUME 94.6 fl (80-96); MEAN PLT VOLUME 10.1 fl (7.5-11.1); MONO % 11.8 % (3.8-10.2); NEUT % 68.9 % (42.8-82.8); PLATELET COUNT 71 K/MM3 (134-434); RBC 2.89 M/mm3 (4.00-5.60); RDW 16.7 % (11.9-15.9); WHITE BLOOD COUNT 2.9 K/mm3 (4.0-10.0)
[2017-10-23 06:44] LABS: ALBUMIN 3.1 g/dl (3.4-5.0); BLOOD UREA NITROGEN 13 mg/dL (7-18); CALCIUM 8.6 mg/dL (8.5-10.1); CHLORIDE 102 mmol/L (98-107); POTASSIUM 3.8 mmol/L (3.5-5.1); SODIUM 142 mmol/L (136-145)
[2017-10-23 06:47] LABS: ALK PHOS 147 U/L (45-117); ANION GAP 10 (8-16); BILIRUBIN,TOTAL 0.3 mg/dL (0.2-1.0); CO2 30 mmol/L (21-32); CREATININE 3.2 mg/dL (0.7-1.3); GLUCOSE,RANDOM 77 mg/dL (74-106); SGOT/AST 19 U/L (15-37); SGPT/ALT 7 U/L (12-78); TOT PROT 6.8 g/dl (6.4-8.2)
[2017-10-23] MEDS ORDERED: PT OWN MED DRAWER 7, Y5N ONE (06:53)
[2017-10-23] MEDS: TAMSULOSIN HCL 0.4 MG CAP.ER.24H (FP) PO SCH (07:56)
[2017-10-23] MEDS: SEVELAMER CARBONATE 800 MG TAB (FP) PO SCH (07:56)
--- NOTE | 2017-10-23 12:49 | HOSP ---
Physical Examination Vital Signs: Vital Signs Temperature 97.7 F 10/23/17 06:00 Pulse Rate 60 10/23/17 06:00 Respiratory Rate 20 10/23/17 06:00 Blood Pressure 127/62 10/23/17 06:00 O2 Sat by Pulse Oximetry (%) 95 10/22/17 21:00 Labs: CBC, BMP 10/23/17 05:40 10/23/17 05:40 Hospitalist Encounter Assessment: Called by primary RN this morning around 0730 that pt was asking to leave AMA Patient reported to have left at 0855 before I was able to evaluate him Patient verbalized to me yesterday that he wanted to leave AMA and I did speak to patient yesterday about the risk of leaving AMA and he agreed to stay. I Reviewed POC with patient and made him aware that he was on IV antibiotics for left parotitis and importance of finishing the IV therapy discussed. He agreed to stay yesterday, but unfortunately left AMA this morning. Patient took a cab home.
== END 2017-10-23 08:30 | disposition left against medical advice (07) | DRG 154 ==
LOC: JER 22:10 → JERBED 10-20 01:38 → J6S 10-20 17:50 → JSAMEDAYSX 10-21 10:54 → J6S 10-21 10:55
PROVIDERS: ADMIT Internal Medicine; ATTEND Nurse Practitioner Family
PROC: 5A1D70Z Performance of Urinary Filtration, Intermittent, Less than 6 Hours Per Day (ICD-10-PCS; principal; 2017-10-20)
DX: K11.20 Sialoadenitis, unspecified (principal); N18.6 End stage renal disease; I13.2 Hypertensive heart and chronic kidney disease with heart failure and with stage 5 chronic kidney disease, or end stage renal disease; I50.22 Chronic systolic (congestive) heart failure; I25.10 Atherosclerotic heart disease of native coronary artery without angina pectoris; Z95.1 Presence of aortocoronary bypass graft; Z86.718 Personal history of other venous thrombosis and embolism; E78.5 Hyperlipidemia, unspecified; E11.51 Type 2 diabetes mellitus with diabetic peripheral angiopathy without gangrene; E11.22 Type 2 diabetes mellitus with diabetic chronic kidney disease; Z99.2 Dependence on renal dialysis; Z95.0 Presence of cardiac pacemaker; Z87.891 Personal history of nicotine dependence; D64.9 Anemia, unspecified; R07.9 Chest pain, unspecified; Z91.14 Patient's other noncompliance with medication regimen; D72.819 Decreased white blood cell count, unspecified; D69.6 Thrombocytopenia, unspecified
CPT/HCPCS: 36415; 71045-TC; 71250-TC; 80048; 80053; 80061; 82550; 82962; 83036; 83605; 83721; 83735; 83880; 84484; 85025; 85027; 85610; 85651; 85730; 86140; 86850; 86900; 86901; 87040; 87389; 93005; 93010; 93971; 99285-25; G0480; J0885

== ENCOUNTER 2017-10-28 13:42 | Emergency (ER) | payer OTHER ==
[2017-10-28 13:50] VITALS: BP 181/85; PULSE 79; TEMP 98.1; BMI 26.5
--- NOTE | 2017-10-28 18:35 | PDOC ---
Attending Attestation - HPI HPI: 10/28/17 19:18 The patient is a 66 year old male with a significant past medical history of ESRD (T, Th, Sat dialysis, last full dialysis yesterday), diabetes, CHF, CAD (s/ p CABG, stent, pacemaker), DVT on eliquis, CVA, HTN, HLD, PVD, who presents to the ED with complaints of bilateral hip pain s/p mechanical fall last night. The patient states at the the time of the incident, his and police had to help him up. The patient refused to go to the emergency room last night. Denies fever or chills. Denies chest pain or shortness of breath. Denies any other injuries or symptoms. Allergies: None Social history: No alcohol, tobacco or drug use reported Surgical history: CABG, permanent pacemaker placement. Right arm fistula. PMD: None - Physicial Exam PE: 10/28/17 19:23 GENERAL: Awake, alert, and fully oriented, in no acute distress HEAD: No signs of trauma EYES: PERRLA, EOMI, sclera anicteric, conjunctiva clear ENT: Auricles normal inspection, hearing grossly normal, nares patent, oropharynx clear without exudates. Moist mucosa NECK: Normal ROM, supple, no lymphadenopathy, JVD, or masses LUNGS: Breath sounds equal, clear to auscultation bilaterally. No wheezes, and no crackles HEART: (+)Murmur, HD catheter to right chest wall. Normal S1 and S2, rubs or gallops ABDOMEN: Soft, nontender, normoactive bowel sounds. No guarding, no rebound. No masses MSK: No T, C, or L-spine tenderness. EXTREMITIES: (+)Tenderness to greater trocanter bilaterally. Normal range of motion, no edema. No clubbing or cyanosis. No cords, erythema. Able to range legs bilaterally. NEUROLOGICAL: Cranial nerves II through XII grossly intact. Normal speech, normal gait SKIN: Warm, Dry, normal turgor, no rashes or lesions noted <Jocelynn Mccormick - Last Filed: 10/28/17 19:25> - Resident Resident Name: Huber Palomino - ED Attending Attestation I have performed the following: I have examined & evaluated the patient, The case was reviewed & discussed with the resident, I agree w/resident's findings & plan, Exceptions are as noted - Medical Decision Making 10/28/17 18:35 I, Dr. Holly Tena DO, attest that this document has been prepared under my direction and personally reviewed by me in its entirety. I further attest, that it accurately reflects all work, treatment, procedures and medical decision -making performed by me. 10/28/17 19:06 67yo male with ESRD on HD t/th/sat with a mechanical fall last night -states his and the police had to help him up -pain in both hips today -lbp today -no stepoffs or deformities -HD catheter to R chest wall -had HD yesterday -will obtain xrays -will give tramadol and tylenol for pain -will ambulate after xrays 10/29/17 00:54 xrays do not show acute fracture stable for d/c to home <Holly Tena - Last Filed: 10/29/17 01:03> Discharge Disposition - Discharge Dispostion Last Admission D/C Date: 10/23/17 Admit: No <Holly Tena - Last Filed: 10/29/17 01:03> - Diagnosis Low back pain, Fall, Hip pain - Discharge Dispostion Disposition: HOME Condition at time of disposition: Stable - Prescriptions Prescriptions: Oxycodone HCl 5 mg PO BID PRN #4 tablet MDD 2 tabs PRN Reason: Pain - Referrals Referrals: Nomi Hernández [Primary Care Provider] - Luan Andrea MD [Staff Physician] - - Patient Instructions Printed Discharge Instructions: How to Prevent Falls, Help for Hip Pain Additional Instructions: Please take all meds as prescribed. Please return to the ED with any further complaints. Please go to your dialysis treatment tomorrow. Please make a follow up appointment with your PMD. - Post Discharge Activity Attestations - Attestations 10/28/17 19:35 Documentation prepared by Jocelynn Mccormick, acting as medical care manager for Holly Tena DO. <Jocelynn Mccormick - Last Filed: 10/28/17 19:25>
[2017-10-28] MEDS ORDERED: traMADol HCL 50 MG TABLET PO ONE (19:00)
[2017-10-28] MEDS ORDERED: ACETAMINOPHEN 325 MG TABLET (FP) PO ONE (19:03)
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
[2017-10-28] MEDS ORDERED: ACETAMINOPHEN 325 MG TABLET (FP) ONE (22:39)
[2017-10-28] MEDS ORDERED: traMADol HCL 50 MG TABLET ONE (22:39)
[2017-10-29] MEDS ORDERED: oxyCODONE HCL 5 MG TABLET PO ONE (00:53)
[2017-10-29] MEDS ORDERED: LIDOCAINE 5% TOPICAL PATCH TP ONE (00:53)
[2017-10-29] MEDS ORDERED: LIDOCAINE PATCH REMOVAL MC SCH (22:00)
== END 2017-10-29 02:24 | disposition home or self-care (01) ==
LOC: JER 13:42
DX: M54.5 Low back pain (principal); M25.552 Pain in left hip; M25.551 Pain in right hip; W18.39XA Other fall on same level, initial encounter; Y93.89 Activity, other specified; Y92.038 Other place in apartment as the place of occurrence of the external cause; Y99.8 Other external cause status; I25.10 Atherosclerotic heart disease of native coronary artery without angina pectoris; I13.2 Hypertensive heart and chronic kidney disease with heart failure and with stage 5 chronic kidney disease, or end stage renal disease; N18.6 End stage renal disease; I50.9 Heart failure, unspecified; Z99.2 Dependence on renal dialysis; Z95.1 Presence of aortocoronary bypass graft; Z95.5 Presence of coronary angioplasty implant and graft; E11.9 Type 2 diabetes mellitus without complications; E78.00 Pure hypercholesterolemia, unspecified; Z86.73 Personal history of transient ischemic attack (TIA), and cerebral infarction without residual deficits; Z86.718 Personal history of other venous thrombosis and embolism; Z79.01 Long term (current) use of anticoagulants
CPT/HCPCS: 72100-TC; 73502-TC-LT; 73523-TC; 99282-25

== ENCOUNTER 2017-10-30 23:24 | Emergency (ER) | payer OTHER ==
[2017-10-31 00:01] VITALS: TEMP 98.8; BMI 24.7
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
[2017-10-31] MEDS ORDERED: HYDROmorphone HCL CARPU-JECT 2 MG/1 ML DISP.SYRIN IM ONE (05:41)
[2017-10-31 09:00] VITALS: BP 140/75; PULSE 72
== END 2017-10-31 09:01 | disposition home or self-care (01) ==
LOC: SUPCPDRO 23:24 → JER 23:24
PROC: 3E023NZ Introduction of Analgesics, Hypnotics, Sedatives into Muscle, Percutaneous Approach (ICD-10-PCS; principal; 2017-10-30)
DX: M54.5 Low back pain (principal); G89.4 Chronic pain syndrome; I25.10 Atherosclerotic heart disease of native coronary artery without angina pectoris; I13.2 Hypertensive heart and chronic kidney disease with heart failure and with stage 5 chronic kidney disease, or end stage renal disease; N18.6 End stage renal disease; I50.9 Heart failure, unspecified; Z99.2 Dependence on renal dialysis; Z95.1 Presence of aortocoronary bypass graft; Z95.5 Presence of coronary angioplasty implant and graft; Z87.891 Personal history of nicotine dependence; Z95.0 Presence of cardiac pacemaker; E11.9 Type 2 diabetes mellitus without complications; Z86.73 Personal history of transient ischemic attack (TIA), and cerebral infarction without residual deficits; N40.0 Benign prostatic hyperplasia without lower urinary tract symptoms; E78.00 Pure hypercholesterolemia, unspecified; F41.9 Anxiety disorder, unspecified
CPT/HCPCS: 96372; 99282-25

== ENCOUNTER 2017-11-01 07:07 | Emergency (ER) | payer OTHER ==
[2017-11-01 07:29] VITALS: BMI 22.8
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
[2017-11-01] MEDS ORDERED: KETOROLAC TROMETHAMINE 30 MG/1 ML VIAL IVPUSH ONE (09:14)
[2017-11-01] MEDS ORDERED: KETOROLAC TROMETHAMINE 30 MG/1 ML VIAL IM ONE (10:07)
--- NOTE | 2017-11-01 10:14 | PDOC ---
Attending Attestation - Resident Resident Name: Huber Palomino - ED Attending Attestation I have performed the following: I have examined & evaluated the patient, The case was reviewed & discussed with the resident, I agree w/resident's findings & plan, Exceptions are as noted - HPI HPI: 11/01/17 17:28 67y M hx of ESRD (Tu,,Sa), CAD, DM2, HTN, CHF, chronic pain syndrome presents with R hip pain. Pt states he was walking around at home and fell down now complaining of his R hip area. No head injury, loc. On exam, the patient was in no distress, was able to range his R hip without any difficulty or resulting in pain. He has a small mass in the R hip that is tender, though it is not erythemadous, indurated and apperas chronic. His US showed a mass cw hematoma, vs necrotic mass. pt can likely be dc back home.
[2017-11-01] MEDS ORDERED: KETOROLAC TROMETHAMINE 60 MG/2 ML VIAL IM ONE (10:17)
[2017-11-01 19:42] VITALS: BP 168/79; PULSE 68; TEMP 97.7
== END 2017-11-01 19:43 | disposition home or self-care (01) ==
LOC: JER 07:07
PROC: 3E0233Z Introduction of Anti-inflammatory into Muscle, Percutaneous Approach (ICD-10-PCS; principal; 2017-11-01)
DX: S70.01XA Contusion of right hip, initial encounter (principal); W18.39XA Other fall on same level, initial encounter; Z91.81 History of falling; Y93.89 Activity, other specified; Y92.038 Other place in apartment as the place of occurrence of the external cause; I25.10 Atherosclerotic heart disease of native coronary artery without angina pectoris; I13.2 Hypertensive heart and chronic kidney disease with heart failure and with stage 5 chronic kidney disease, or end stage renal disease; N18.6 End stage renal disease; I50.9 Heart failure, unspecified; Z99.2 Dependence on renal dialysis; Z95.1 Presence of aortocoronary bypass graft; Z95.5 Presence of coronary angioplasty implant and graft; Z95.0 Presence of cardiac pacemaker; E11.9 Type 2 diabetes mellitus without complications; Z79.84 Long term (current) use of oral hypoglycemic drugs; F41.9 Anxiety disorder, unspecified; N40.0 Benign prostatic hyperplasia without lower urinary tract symptoms; E78.00 Pure hypercholesterolemia, unspecified; G89.4 Chronic pain syndrome
CPT/HCPCS: 76705; 96372; 99282-25

== ENCOUNTER 2017-11-03 22:09 | Inpatient (IN) | payer OTHER ==
[2017-11-03 23:06] VITALS: BMI 24.7
[2017-11-03] MEDS ORDERED: KETOROLAC TROMETHAMINE 60 MG/2 ML VIAL IM ONE (23:21)
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
[2017-11-03] MEDS ORDERED: KETOROLAC TROMETHAMINE 60 MG/2 ML VIAL ONE (23:48)
[2017-11-04] MEDS ORDERED: PANTOPRAZOLE SODIUM 40 MG in SODIUM CHLORIDE 100 ML IVPB ONE (02:11)
[2017-11-04] MEDS ORDERED: ONDANSETRON 4 MG/2 ML VIAL IVPUSH STA (02:11)
--- NOTE | 2017-11-04 02:39 | PDOC ---
*Physical Exam - Vital Signs Last Vital Signs Temp Pulse Resp BP Pulse Ox 97.5 F L 77 14 147/72 98 11/03/17 23:04 11/03/17 23:04 11/03/17 23:04 11/03/17 23:04 11/03/17 23:04 ED Treatment Course - Medications Given in the ED: ED Medications Discontinued Medications Generic Name Dose Route Start Last Admin Trade Name Mary PRN Reason Stop Dose Admin Ketorolac Tromethamine 60 mg 11/03/17 23:21 11/04/17 00:07 Toradol Injection - IM 11/03/17 23:22 60 mg ONCE ONE Administration Oxycodone/Acetaminophen 2 combo 11/04/17 00:08 11/04/17 00:18 Percocet 5/325 - PO 11/04/17 00:09 2 combo ONCE ONE Administration Medical Decision Making - Medical Decision Making 11/04/17 02:38 as pt was being transferrred to [facility] to go home ,he had coffee ground emesis . I will cancel his discharge signed out to Dr Landry *DC/Admit/Observation/Transfer Diagnosis at time of Disposition: Chronic pain disorder - Referrals - Patient Instructions Printed Discharge Instructions: DI for Chronic Pain -- Adult Additional Instructions: please followup with your doctor Go to your dialysis as scheduled - Post Discharge Activity
[2017-11-04 03:03] LABS: BASO % 1.2 % (0-2.0); EOS % 3.2 % (0-4.5); LYMPH % 8.2 % (8-40); MCH 29.8 pg (25.7-33.7); MCHC 31.4 g/dl (32.0-35.9); MEAN CELL VOLUME 94.9 fl (80-96); MEAN PLT VOLUME 8.4 fl (7.5-11.1); MONO % 10.2 % (3.8-10.2); NEUT % 77.2 % (42.8-82.8); PLATELET COUNT 145 K/MM3 (134-434); RDW 18.3 % (11.9-15.9); WHITE BLOOD COUNT 6.8 K/mm3 (4.0-10.0)
[2017-11-04 03:12] LABS: HEMOGLOBIN 6.3 GM/dL (11.7-16.9)
[2017-11-04 03:18] LABS: INR 1.37 (0.82-1.09); PROTHROMBIN TIME (PATIENT) 15.5 SEC (9.98-11.88)
[2017-11-04 03:27] LABS: ALBUMIN 2.4 g/dl (3.4-5.0); ALK PHOS 134 U/L (45-117); ANION GAP 8 (8-16); BILIRUBIN,TOTAL 0.4 mg/dL (0.2-1.0); BLOOD UREA NITROGEN 75 mg/dL (7-18); CALCIUM 7.7 mg/dL (8.5-10.1); CHLORIDE 101 mmol/L (98-107); CO2 31 mmol/L (21-32); CREATININE 7.2 mg/dL (0.7-1.3); GLUCOSE,RANDOM 120 mg/dL (74-106); MAGNESIUM 2.4 mg/dL (1.8-2.4); SGOT/AST 23 U/L (15-37); SGPT/ALT 14 U/L (12-78); SODIUM 140 mmol/L (136-145); TOT PROT 5.3 g/dl (6.4-8.2)
[2017-11-04 03:30] LABS: POTASSIUM 6.3 mmol/L (3.5-5.1)
[2017-11-04] MEDS ORDERED: ONDANSETRON 4 MG/2 ML VIAL ONE (04:07)
[2017-11-04] MEDS ORDERED: PANTOPRAZOLE SODIUM 40 MG VIAL ONE ×3 (04:08→13:08)
[2017-11-04] MEDS ORDERED: INSULIN REGULAR HUMAN 100 UNITS/ML *VIAL IVPUSH ONE (04:34)
[2017-11-04] MEDS ORDERED: CALCIUM GLUCONATE 10% - 1,000 MG/10 ML VIAL IVPUSH ONE (04:34)
[2017-11-04] MEDS ORDERED: SODIUM BICARBONATE 8.4% 50 MEQ/50 ML DISP.SYRIN IVPUSH ONE (04:34)
[2017-11-04] MEDS ORDERED: DEXTROSE 50%-WATER - 25 GM/50 ML VIAL IVPUSH ONE ×2 (04:34→13:02)
--- NOTE | 2017-11-04 04:34 | PDOC ---
*Physical Exam - Vital Signs Last Vital Signs Temp Pulse Resp BP Pulse Ox 97.5 F L 77 14 147/72 98 11/03/17 23:04 11/03/17 23:04 11/03/17 23:04 11/03/17 23:04 11/03/17 23:04 <Tawanda Landry - Last Filed: 11/04/17 04:47> - Vital Signs Last Vital Signs Temp Pulse Resp BP Pulse Ox 97.5 F L 77 14 147/72 98 11/03/17 23:04 11/03/17 23:04 11/03/17 23:04 11/03/17 23:04 11/03/17 23:04 <Patel Mcintyre - Last Filed: 11/04/17 06:25> ED Treatment Course - LABORATORY CBC & Chemistry Diagram: 11/04/17 02:50 11/04/17 02:50 - ADDITIONAL ORDERS Additional order review: Laboratory Results 11/04/17 11/04/17 02:50 02:50 PT with INR 15.50 H INR 1.37 H Sodium 140 Potassium 6.3 H* D Chloride 101 Carbon Dioxide 31 Anion Gap 8 BUN 75 H D Creatinine 7.2 H D Creat Clearance w eGFR 7.62 Random Glucose 120 H D Calcium 7.7 L Magnesium 2.4 Total Bilirubin 0.4 D AST 23 D ALT 14 D Alkaline Phosphatase 134 H Total Protein 5.3 L D Albumin 2.4 L D 11/04/17 02:50 RBC 2.10 L D MCV 94.9 MCHC 31.4 L RDW 18.3 H MPV 8.4 D Neutrophils % 77.2 Lymphocytes % 8.2 D Monocytes % 10.2 Eosinophils % 3.2 Basophils % 1.2 - RADIOLOGY Radiology Studies Ordered: Category Date Time Status CHEST X-RAY PORTABLE* [RAD] Stat Radiology 11/04/17 02:11 Taken - Medications Given in the ED: ED Medications Discontinued Medications Generic Name Dose Route Start Last Admin Trade Name Freq PRN Reason Stop Dose Admin Pantoprazole Sodium 40 mg/ 100 mls @ 200 mls/hr 11/04/17 02:11 11/04/17 04:12 Sodium Chloride IVPB 11/04/17 02:40 200 mls/hr ONCE ONE Administration Ketorolac Tromethamine 60 mg 11/03/17 23:21 11/04/17 00:07 Toradol Injection - IM 11/03/17 23:22 60 mg ONCE ONE Administration Ondansetron HCl 4 mg 11/04/17 02:11 11/04/17 04:13 Zofran Injection IVPUSH 11/04/17 02:12 4 mg ONCE STA Administration Oxycodone/Acetaminophen 2 combo 11/04/17 00:08 11/04/17 00:18 Percocet 5/325 - PO 11/04/17 00:09 2 combo ONCE ONE Administration <Tawanda Landry - Last Filed: 11/04/17 04:47> - LABORATORY CBC & Chemistry Diagram: 11/04/17 02:50 11/04/17 02:50 - ADDITIONAL ORDERS Additional order review: Laboratory Results 11/04/17 11/04/17 11/04/17 03:13 02:50 02:50 PT with INR 15.50 H INR 1.37 H Sodium 140 Potassium 6.3 H* D Chloride 101 Carbon Dioxide 31 Anion Gap 8 BUN 75 H D Creatinine 7.2 H D Creat Clearance w eGFR 7.62 Random Glucose 120 H D Calcium 7.7 L Magnesium 2.4 Total Bilirubin 0.4 D AST 23 D ALT 14 D Alkaline Phosphatase 134 H Total Protein 5.3 L D Albumin 2.4 L D Blood Type O POSITIVE Antibody Screen Negative Crossmatch See Detail 11/04/17 02:50 RBC 2.10 L D MCV 94.9 MCHC 31.4 L RDW 18.3 H MPV 8.4 D Neutrophils % 77.2 Lymphocytes % 8.2 D Monocytes % 10.2 Eosinophils % 3.2 Basophils % 1.2 - Medications Given in the ED: ED Medications Discontinued Medications Generic Name Dose Route Start Last Admin Trade Name Freq PRN Reason Stop Dose Admin Albuterol Sulfate 1 amp 11/04/17 04:53 11/04/17 05:29 Ventolin 0.083% Nebulizer Soln - NEB 11/04/17 04:54 1 amp ONCE ONE Administration Calcium Gluconate 1,000 mg 11/04/17 04:34 11/04/17 05:26 Calcium Gluconate 10% - IVPUSH 11/04/17 04:35 1,000 mg ONCE ONE Administration Dextrose 25 gm 11/04/17 04:34 11/04/17 05:26 D50w (Vial) - IVPUSH 11/04/17 04:35 25 gm NOW ONE Administration Pantoprazole Sodium 40 mg/ 100 mls @ 200 mls/hr 11/04/17 02:11 11/04/17 04:12 Sodium Chloride IVPB 11/04/17 02:40 200 mls/hr ONCE ONE Administration Insulin Human Regular 10 units 11/04/17 04:34 11/04/17 05:26 Novolin R Vial *For Ivpush Or Iv Drip Only* IVPUSH 11/04/17 04:35 10 units ONCE ONE Administration Ketorolac Tromethamine 60 mg 11/03/17 23:21 11/04/17 00:07 Toradol Injection - IM 11/03/17 23:22 60 mg ONCE ONE Administration Ondansetron HCl 4 mg 11/04/17 02:11 11/04/17 04:13 Zofran Injection IVPUSH 11/04/17 02:12 4 mg ONCE STA Administration Oxycodone/Acetaminophen 2 combo 11/04/17 00:08 11/04/17 00:18 Percocet 5/325 - PO 11/04/17 00:09 2 combo ONCE ONE Administration Sodium Bicarbonate 50 meq 11/04/17 04:34 11/04/17 05:26 Sodium Bicarbonate 8.4% - IVPUSH 11/04/17 04:35 50 meq ONCE ONE Administration - Additional Consults Time Called: 06:25 (Consult for upper GI bleed) Consult/PCP: Dr. Conley / Dr. Gonzalez <Patel Mcintyre - Last Filed: 11/04/17 06:25> Medical Decision Making - Medical Decision Making 11/04/17 04:47 pt case accepted to ICU by MOBILITY SCOOTER REPAIRER Sarina when bed is available. <Tawanda Landry - Last Filed: 11/04/17 04:47> *DC/Admit/Observation/Transfer - Discharge Dispostion Admit: Yes <Tawanda Landry - Last Filed: 11/04/17 04:47> <Patel Mcintyre - Last Filed: 11/04/17 06:25> Diagnosis at time of Disposition: ESRD (end stage renal disease) on dialysis, Upper GI bleed, Acute hyperkalemia - Discharge Dispostion Condition at time of disposition: Stable
[2017-11-04] MEDS ORDERED: SODIUM BICARBONATE 8.4% 50 MEQ/50 ML VIAL ONE (04:53)
[2017-11-04] MEDS ORDERED: DEXTROSE 50%-WATER - 25 GM/50 ML VIAL ONE (04:53)
[2017-11-04] MEDS ORDERED: ALBUTEROL SO4 0.083% IH SOL 2.5 MG/3 ML VIAL.NEB. NEB ONE (04:53)
[2017-11-04] MEDS ORDERED: INSULIN REGULAR HUMAN 100 UNITS/ML *VIAL ONE (04:54)
--- NOTE | 2017-11-04 04:57 | PN ---
Teaching Attending Note Name of Resident: Jorge Wooten ATTENDING PHYSICIAN STATEMENT I saw and evaluated the patient. I reviewed the resident's note and discussed the case with the resident. I agree with the resident's findings and plan as documented. SUBJECTIVE: 67 yo M pmhx. DM, HTN, HLD, CVA, CAD, ESRD (T, TH, S) on HD, CHF, DVT who presented for pain medication, in Ed he had coffee ground emesis.b Also, notes he missed HD and has recent fall on right side. PT. at bedside states he feels ok, wanted his pain medications earlier. Denies any chest pain, pressure or shortness of breath. Pt. denied any black or bloody stool (As per RN pt. had BRBPR). He states he had one episode in ED today of the "blood from his mouth." He noted it was dark in color. OBJECTIVE: Physical: VS: Vital Signs Period Temp Pulse Resp BP Sys/Hinds Pulse Ox Last 24 Hr 97.5 F 77 14 147/72 98 GEN: Resting in bed AA0X3, Cachetic HEENT: Echhymosis around lips, poor dentition, with dried blood on teeth, inside mouth. Bilateral facial edema. CARD: RRR S1, S2 RESP: Decreased at Bases ABD: RLQ hematoma 5X2cm EXT: - C/C/E RECTAL: PT. REFUSING RECTAL exam CBCD WBC 6.8 K/mm3 (4.0-10.0) D 11/04/17 02:50 RBC 2.10 M/mm3 (4.00-5.60) L D 11/04/17 02:50 Hgb 6.3 GM/dL (11.7-16.9) L* D 11/04/17 02:50 Hct 20.0 % (35.4-49) L D 11/04/17 02:50 MCV 94.9 fl (80-96) 11/04/17 02:50 MCHC 31.4 g/dl (32.0-35.9) L 11/04/17 02:50 RDW 18.3 % (11.9-15.9) H 11/04/17 02:50 Plt Count 145 K/MM3 (134-434) D 11/04/17 02:50 MPV 8.4 fl (7.5-11.1) D 11/04/17 02:50 CMP Sodium 140 mmol/L (136-145) 11/04/17 02:50 Potassium 6.3 mmol/L (3.5-5.1) H* D 11/04/17 02:50 Chloride 101 mmol/L (98-107) 11/04/17 02:50 Carbon Dioxide 31 mmol/L (21-32) 11/04/17 02:50 Anion Gap 8 (8-16) 11/04/17 02:50 BUN 75 mg/dL (7-18) H D 11/04/17 02:50 Creatinine 7.2 mg/dL (0.7-1.3) H D 11/04/17 02:50 Creat Clearance w eGFR 7.62 (>60) 11/04/17 02:50 Random Glucose 120 mg/dL (74-106) H D 11/04/17 02:50 Calcium 7.7 mg/dL (8.5-10.1) L 11/04/17 02:50 Total Bilirubin 0.4 mg/dL (0.2-1.0) D 11/04/17 02:50 AST 23 U/L (15-37) D 11/04/17 02:50 ALT 14 U/L (12-78) D 11/04/17 02:50 Alkaline Phosphatase 134 U/L (45-117) H 11/04/17 02:50 Total Protein 5.3 g/dl (6.4-8.2) L D 11/04/17 02:50 Albumin 2.4 g/dl (3.4-5.0) L D 11/04/17 02:50 Home Medications Medication Instructions Recorded Carvedilol [Coreg -] 12.5 mg PO BID #60 tablet 12/07/16 Atorvastatin Ca [Lipitor] 20 mg PO HS #30 tablet 04/08/17 Gabapentin [Neurontin] 100 mg PO DAILY #30 capsule 04/08/17 Hydralazine HCl [Apresoline -] 50 mg PO BID #60 tablet 04/08/17 Isosorbide Mononitrate [Imdur -] 30 mg PO DAILY #30 tab.sr.24h 04/08/17 Sevelamer Carbonate [Renvela -] 800 mg PO TIDCM #90 tab 04/08/17 Tamsulosin HCl [Flomax -] 0.4 mg PO DAILY@0830 #30 capsule 04/08/17 Pantoprazole Sodium 40 mg PO DAILY 04/20/17 Oxycodone HCl 5 mg PO BID PRN #4 tablet MDD 2 10/29/17 tabs CXR- No acute Process EKG: V-Paced ASSESSMENT AND PLAN: 67 yo M pmhx. DM, HTN, HLD, CVA, CAD, ESRD (, , S) on HD, CHF, DVT who presented for pain medication, in Ed he had coffee ground emesis and BRBPR, being admitted for UGIB 1.) Upper GI Bleed/BRBPR - NPO - 2 LARGE BORE IVS - 2U PRBC, 1 U FFP - DDAVP 0.3mcg/kg over 15-30 minutes - PPI gtt - Type & Screen - CBC q 6hr 2.) Hyperkalemia - Ca Gluconate - Insulin/Dextrose - EKG- noted - HD 3.) ESRD on HD (, , S) - Missed Tu HD - Nephro contacted for HD today 4.) Parotitis - Vancomycin 1 g X1 - ID consult - Pt. left AMA prior to completing tx. last time. 5.) CHF - Not in exacerbation - Monitor 6.) Dvt PPx - SCDS Place in ICU: CC time: 40 minutes
[2017-11-04] MEDS ORDERED: CALCIUM GLUCONATE 10% - 1,000 MG/10 ML VIAL ONE (05:28)
[2017-11-04] MEDS ORDERED: DESMOPRESSIN ACETATE 4 MCG/ML AMP IVPB ONE (05:49)
--- NOTE | 2017-11-04 06:13 | HP ---
CHIEF COMPLAINT: back pain/coffee ground emesis PCP: HISTORY OF PRESENT ILLNESS: Pt is a poor historian. Pt is a 67 y/o M w/ PMH ESRD (on HD TTS), CAD (s/p CABG and PPM), DM2, HTN, CHF , hx DVT, frequent hospital visits due to missed HD sessions who presented to ED asking for pain medication for his leg. Pt was treated with Percocet and Toradol and was discharged. He was on the stretcher with EMS ready to go home when he had a witnessed episode of karma coffee ground emesis. Discharge was cancelled. Vital signs on initial assessment were stable with BP 147/72, HR 77. Initial labs significant for Hb 6.3, INR 1.37, K 6.3, Certified Medical Records Coder 7.2 (prior values range from 2-7). Note that EKG did not show peaked T waves, but rhythm is paced. In ED, pt was given Ins, D-5, Ca gluconate for hyperkalemia. Current BP 97/36 HR 69 ER course was notable for: (1) As above (2) (3) Recent Travel: PAST MEDICAL HISTORY: ESRD (on HD TTS), CAD (s/p CABG and PPM), DM2, HTN, CHF, hx DVT, frequent hospital visits, CVA, HLD, PVD, Anemia (8-11) PAST SURGICAL HISTORY: Social History: Smoking: denies Alcohol: denies Drugs: denies Family History: denies Allergies No Known Drug Allergies Allergy (Verified 11/03/17 23:04) HOME MEDICATIONS: Home Medications Medication Instructions Recorded Carvedilol [Coreg -] 12.5 mg PO BID #60 tablet 12/07/16 Atorvastatin Ca [Lipitor] 20 mg PO HS #30 tablet 04/08/17 Gabapentin [Neurontin] 100 mg PO DAILY #30 capsule 04/08/17 Hydralazine HCl [Apresoline -] 50 mg PO BID #60 tablet 04/08/17 Isosorbide Mononitrate [Imdur -] 30 mg PO DAILY #30 tab.sr.24h 04/08/17 Sevelamer Carbonate [Renvela -] 800 mg PO TIDCM #90 tab 04/08/17 Tamsulosin HCl [Flomax -] 0.4 mg PO DAILY@0830 #30 capsule 04/08/17 Pantoprazole Sodium 40 mg PO DAILY 04/20/17 Oxycodone HCl 5 mg PO BID PRN #4 tablet MDD 2 10/29/17 tabs REVIEW OF SYSTEMS Pt somnolent and falls asleep frequently during interview. ROS limited. CONSTITUTIONAL: Absent: fever, chills, diaphoresis, generalized weakness, malaise, loss of appetite, weight change HEENT: Absent: rhinorrhea, nasal congestion, throat pain, throat swelling, difficulty swallowing, mouth swelling, ear pain, eye pain, visual changes CARDIOVASCULAR: Absent: chest pain, syncope, palpitations, irregular heart rate, lightheadedness , peripheral edema RESPIRATORY: Absent: cough, shortness of breath, dyspnea with exertion, orthopnea, wheezing, stridor, hemoptysis GASTROINTESTINAL:vomiting Absent: abdominal pain, abdominal distension, nausea, , diarrhea, constipation, melena, hematochezia GENITOURINARY: Absent: dysuria, frequency, urgency, hesitancy, hematuria, flank pain, genital pain MUSCULOSKELETAL: LLE pain Absent: myalgia, arthralgia, joint swelling, back pain, neck pain SKIN: Absent: rash, itching, pallor HEMATOLOGIC/IMMUNOLOGIC: Absent: easy bleeding, easy bruising, lymphadenopathy, frequent infections ENDOCRINE: Absent: unexplained weight gain, unexplained weight loss, heat intolerance, cold intolerance NEUROLOGIC: Absent: headache, focal weakness or paresthesias, dizziness, unsteady gait, seizure, mental status changes, bladder or bowel incontinence PSYCHIATRIC: Absent: anxiety, depression, suicidal or homicidal ideation, hallucinations. PHYSICAL EXAMINATION Vital Signs - 24 hr 11/03/17 23:04 Temperature 97.5 F L Pulse Rate 77 Respiratory 14 Rate Blood Pressure 147/72 O2 Sat by Pulse 98 Oximetry (%) GENERAL: Somnolent. Limited exam HEAD: Normal with no signs of trauma. EYES: Pupils equal, round and reactive to light, sclera anicteric, pale conjunctiva. No lid lag. EARS, NOSE, THROAT: oropharynx clear without exudates. Moist mucous membranes. Poor dental hygiene NECK: supple without lymphadenopathy, JVD, or masses. No bruits LUNGS: Breath sounds equal, clear to auscultation bilaterally. No wheezes, and no crackles. No accessory muscle use. HEART: Distant heart sounds. Regular rate and rhythm, normal S1 and S2 without murmur, rub or gallop. ABDOMEN: Soft, inconsistently tender to palpation in RLQ. Right flank hematoma noted. ? Larsen de jesus sign. not distended, normoactive bowel sounds, no guarding , no rebound, no masses. No hepatomegaly or splenomegaly. MUSCULOSKELETAL: Normal range of motion at all joints. No bony deformities or tenderness. No CVA tenderness. UPPER EXTREMITIES: weak 1+ pulses, warm, No cyanosis. No clubbing. No peripheral edema. LOWER EXTREMITIES: weak 1+ pulses, warm. No calf tenderness. No peripheral edema. NEUROLOGICAL: Uncooperative. Grossly intact. Moves 4 limbs spontaneously. Looks around room spontaneously. PSYCHIATRIC: Somnolent SKIN: Warm, dry, normal turgor, R flank hematoma Laboratory Results - last 24 hr 11/04/17 11/04/17 11/04/17 02:50 02:50 02:50 WBC 6.8 D RBC 2.10 L D Hgb 6.3 L* D Hct 20.0 L D MCV 94.9 MCH 29.8 MCHC 31.4 L RDW 18.3 H Plt Count 145 D MPV 8.4 D Neutrophils % 77.2 Lymphocytes % 8.2 D Monocytes % 10.2 Eosinophils % 3.2 Basophils % 1.2 PT with INR 15.50 H INR 1.37 H Sodium 140 Potassium 6.3 H* D Chloride 101 Carbon Dioxide 31 Anion Gap 8 BUN 75 H D Creatinine 7.2 H D Creat Clearance w eGFR 7.62 Random Glucose 120 H D Calcium 7.7 L Magnesium 2.4 Total Bilirubin 0.4 D AST 23 D ALT 14 D Alkaline Phosphatase 134 H Total Protein 5.3 L D Albumin 2.4 L D ASSESSMENT/PLAN: Pt is a 67 y/o M with extensive PMH significant for ESRD (HD TTS frequently noncompliant) who came to ED for pain and developed massive coffee ground emesis. #Coffee ground emesis -Single episode. Witnessed -Pt accepted for ICU admission. No beds currently available. -Hb 6.3 -2 PRBCs -1 FFP -DDAVP -PPI ggt -Nephrology consulted. Agrees with plan and stressed the need to get pt to a bed where he can be dialyzed -GI consulted. Agrees with plan. Will see pt #Hyperkalemia -In ED K 6.3 -EKG unremarkable for peaked T. Apical paced rhythm -In ED pt received Ins + Dextrose + Ca Gluconate -Repeat EKG ordered -repeat labs ordered #DM -[place] glc 120 -Consider starting Ins once pt is stable #HTN -currently hypotensive -restart meds once stable #FEN -Not on fluids -Hyperkalemia. Addressed as above -NPO #PPx -no hep in bleeding pt #Dispo -Admit to ICU for GI bleed Note: 6am pt placed in ED bed 2. VS BP: 115/49, HR: 71, O2 95%, RR 18 Jorge Wooten MD PGY-1 IM Visit type - Emergency Visit Emergency Visit: Yes ED Registration Date: 11/04/17 Care time: The patient presented to the Emergency Department on the above date and was hospitalized for further evaluation of their emergent condition. - New Patient This patient is new to me today: Yes Date on this admission: 11/04/17 - Critical Care Critical Care patient: No
[2017-11-04] MEDS ORDERED: VANCOMYCIN 1,000 MG in DEXTROSE 5%-WATER - 250 ML IVPB ONE (06:16)
[2017-11-04] MEDS: PANTOPRAZOLE SODIUM 80 MG in SODIUM CHLORIDE 100 ML IVPB SCH ×2 (06:24→18:53)
[2017-11-04] MEDS ORDERED: SODIUM CHLORIDE IVPB ONE (06:30)
[2017-11-04] MEDS ORDERED: DESMOPRESSIN ACETATE IVPB ONE (06:30)
[2017-11-04] MEDS ORDERED: VANCOMYCIN 1 GRAM (PRE-DOCKED) 1,000 MG/250 ML BAG IVPB ONE (08:00)
--- NOTE | 2017-11-04 08:08 | EKG ---
Test Reason : Blood Pressure : / mmHG Vent. Rate : 066 BPM Atrial Rate : 067 BPM P-R Int : 000 ms QRS Dur : 160 ms QT Int : 474 ms P-R-T Axes : 000 -14 -56 degrees QTc Int : 496 ms Ventricular-paced rhythm Biventricular pacemaker detected ABNORMAL ECG WHEN COMPARED WITH ECG OF 19-OCT-2017 22:26, VENT. RATE HAS INCREASED BY 5 BPM Confirmed by SUSAN FLANNERY, ТАТЬЯНА ([id number]) on 11/04/2017 8:07:47 AM Referred By: Confirmed By:ТАТЬЯНА DAVIS MD
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
[2017-11-04 11:59] LABS: ANION GAP 7 (8-16); CALCIUM 7.9 mg/dL (8.5-10.1); CHLORIDE 103 mmol/L (98-107); CO2 32 mmol/L (21-32); GLUCOSE,RANDOM 51 mg/dL (74-106); SODIUM 142 mmol/L (136-145)
[2017-11-04 12:43] LABS: BLOOD UREA NITROGEN 93 mg/dL (7-18)
[2017-11-04 12:44] LABS: CREATININE 7.3 mg/dL (0.7-1.3); POTASSIUM 6.6 mmol/L (3.5-5.1)
[2017-11-04] MEDS ORDERED: DEXTROSE 50%-WATER 25 GM/50 ML DISP.SYRIN ONE (13:07)
[2017-11-04] MEDS ORDERED: EPOETIN ALFA 10,000 UNIT/1 ML VIAL IVPUSH ONE (14:45)
[2017-11-04] MEDS ORDERED: EPOETIN ALFA 2,000 UNIT/1 ML VIAL IVPUSH ONE (14:45)
--- NOTE | 2017-11-04 15:14 | PN ---
Progress Note (short form) - Note Progress Note: EGD on hold due to electrolyte imbalance and need for hemodialysis. Problem List - Problems (1) Gastric ulcer Code(s): K25.9 - GASTRIC ULCER, UNSP ACUTE OR CHRONIC, W/O HEMOR OR PERF (2) Upper GI bleed Code(s): K92.2 - GASTROINTESTINAL HEMORRHAGE, UNSPECIFIED (3) ESRD (end stage renal disease) on dialysis Code(s): N18.6 - END STAGE RENAL DISEASE; Z99.2 - DEPENDENCE ON RENAL DIALYSIS
--- NOTE | 2017-11-04 15:24 | PN ---
Teaching Attending Note Name of Resident: Ursula Lewis ATTENDING PHYSICIAN STATEMENT I saw and evaluated the patient. I reviewed the resident's note and discussed the case with the resident. I agree with the resident's findings and plan as documented. SUBJECTIVE: Pt seen and examined in the ICU. Briefly, 67yo male with h/o HTN, DM, CAD s/p CABG, ESRD on HD, h/o DVT, frequent hospitalizations for missed HD sessions and hyperkalemia who initially presented with leg pain but was noted to have coffee ground emesis. Anemic to Hgb 6.3 and hyperkalemic to 6.6, transferred to the ICU for urgent dialysis. Medically treated in the ER, currently in the ICU, receiving PRBC transfusions. Pt lethargic but arousable, unable to provide further history at this time. OBJECTIVE: Last Vital Signs Temp Pulse Resp BP Pulse Ox 97.9 F 66 18 146/50 100 11/04/17 14:33 11/04/17 14:33 11/04/17 14:33 11/04/17 14:33 11/04/17 14:33 Intake & Output 11/01/17 11/02/17 11/03/17 11/04/17 23:59 23:59 23:59 23:59 Intake Total 200 Balance 200 Weight 63.503 kg 63.503 kg Gen: lethargic but arousable Heart: RRR Lung: scattered bilateral rhonchi Abd: soft, nontender Ext: no edema CBC, BMP 11/04/17 02:50 11/04/17 11:25 Active Medications Chlorhexidine Gluconate (Hibiclens For Decolonization -) 1 applic TP HS NGOC Pantoprazole Sodium 80 mg/ (Sodium Chloride) 100 mls @ 10 mls/hr IVPB Q10H NGOC PRN Reason: 8 MG/HR Last Admin: 11/04/17 06:24 Dose: 10 mls/hr Mupirocin (Bactroban Ointment (For Decolonization) -) 1 applic NS BID NGOC Stop: 11/09/17 09:59 ASSESSMENT AND PLAN: GI Bleed Acute Blood Loss Anemia Hyperkalemia ESRD on HD Altered Mental Status likely Toxic Metabolic Encephalopathy CAD s/p CABG HTN DM h/o DVT Noncompliance - urgent HD in progress - transfuse PRBC - monitor H/H - dDAVP - protonix gtt for now - GI f/u, will need endoscopy when stable - ensure large peripheral bore access - monitor lytes post HD - aspiration precautions - if mental status not improved, may need CT head - DVT prophylaxis - continue ICU monitoring critical care time spent in reviewing chart, evaluating patient and formulating plan 35 min
--- NOTE | 2017-11-04 15:33 | EKG ---
Test Reason : Blood Pressure : / mmHG Vent. Rate : 069 BPM Atrial Rate : 069 BPM P-R Int : 000 ms QRS Dur : 164 ms QT Int : 496 ms P-R-T Axes : 078 -18 000 degrees QTc Int : 531 ms Ventricular-paced rhythm Biventricular pacemaker detected ABNORMAL ECG WHEN COMPARED WITH ECG OF 04-NOV-2017 02:58, VENT. RATE HAS INCREASED BY 3 BPM Confirmed by SUSAN FLANNERY, ТАТЬЯНА ([id number]) on 11/04/2017 3:32:35 PM Referred By: Flaco RAIN Confirmed By:ТАТЬЯНА DAVIS MD
--- NOTE | 2017-11-04 15:50 | CONSULT ---
Consultation: REQUESTING PROVIDER: CONSULT REQUEST: We have been asked to medically evaluate this patient for witnessed coffee ground emesis, anemia and urgent hemodialysis. HISTORY OF PRESENT ILLNESS: Patient was seen in the ICU while receiving dialysis. He was drowsy but arousable, but unable to provide extra history. Pt is a 67 y/o M w/ PMH ESRD (on HD TTS), CAD (s/p CABG and PPM), DM2, HTN, CHF , hx DVT, frequent hospital visits due to missed HD and request for pain meds. Was treated medically with pain meds in ED and noticed [ost discharge to have an episode of witnessed coffee ground emesis and anemia of 6.3. He was also noted to have deranged electrolytes from missed dialysis and in need of urgent hemodialysis. REVIEW OF SYSTEMS: Unable to obtain PHYSICAL EXAMINATION Vital Signs - 24 hr 11/03/17 11/04/17 11/04/17 23:04 07:03 08:00 Temperature 97.5 F L 97.8 F Pulse Rate 77 Pulse Rate [ 88 71 Right Apical] Respiratory 14 18 15 Rate Blood Pressure 147/72 Blood Pressure 115/49 127/51 [Right Arm] O2 Sat by Pulse 98 98 100 Oximetry (%) 11/04/17 11/04/17 11/04/17 09:15 09:30 10:00 Temperature 97.4 F L 97.6 F Pulse Rate Pulse Rate [ 67 70 69 Right Apical] Respiratory 15 16 14 Rate Blood Pressure Blood Pressure 125/55 130/60 125/56 [Right Arm] O2 Sat by Pulse 100 100 100 Oximetry (%) 11/04/17 11/04/17 11/04/17 10:45 10:59 11:15 Temperature 97.7 F Pulse Rate Pulse Rate [ 64 63 78 Right Apical] Respiratory 16 18 16 Rate Blood Pressure Blood Pressure 149/64 142/57 132/60 [Right Arm] O2 Sat by Pulse 100 100 100 Oximetry (%) 11/04/17 11/04/17 11/04/17 12:00 13:21 14:14 Temperature 97.9 F Pulse Rate 66 Pulse Rate [ 88 73 Right Apical] Respiratory 16 14 18 Rate Blood Pressure 146/50 Blood Pressure 138/68 136/66 [Right Arm] O2 Sat by Pulse 100 100 100 Oximetry (%) 11/04/17 14:33 Temperature 97.9 F Pulse Rate 66 Pulse Rate [ Right Apical] Respiratory 18 Rate Blood Pressure 146/50 Blood Pressure [Right Arm] O2 Sat by Pulse 100 Oximetry (%) GENERAL: Drowsy but arousable on NC-1L. No evidence of bleeding from any orifice.Currently being dialyzed. HEAD: Normal with no signs of recent trauma. EYES: 2mm bilaterally reactive. EARS, NOSE, THROAT: Missing teeth, oropharynx clear without exudates. Moist mucous membranes. NECK: Normal range of motion, supple LUNGS: Upper airway transmitted sounds and bilateral coarse creps. No wheezes. No accessory muscle use. HEART: S1 and S2 without murmur, rub or gallop. ABDOMEN: Soft, nontender, not distended, normoactive bowel sounds. Diaper did not contain any melena or karma blood UPPER EXTREMITIES: Amputated R middle finger. Pulses+, warm, well-perfused. No cyanosis. No peripheral edema. LOWER EXTREMITIES: 2+ pulses, warm, well-perfused. No peripheral edema. NEUROLOGICAL: drowsy but arousable. Able to speak, but hard to comprehend his speech. Gait not observed Lines: NC, R permacath CBC, BMP 11/04/17 02:50 11/04/17 11:25 Laboratory Results - last 24 hr 11/04/17 11/04/17 11/04/17 02:50 02:50 02:50 WBC 6.8 D RBC 2.10 L D Hgb 6.3 L* D Hct 20.0 L D MCV 94.9 MCH 29.8 MCHC 31.4 L RDW 18.3 H Plt Count 145 D MPV 8.4 D Neutrophils % 77.2 Lymphocytes % 8.2 D Monocytes % 10.2 Eosinophils % 3.2 Basophils % 1.2 PT with INR 15.50 H INR 1.37 H Sodium 140 Potassium 6.3 H* D Chloride 101 Carbon Dioxide 31 Anion Gap 8 BUN 75 H D Creatinine 7.2 H D Creat Clearance w eGFR 7.62 Random Glucose 120 H D Calcium 7.7 L Magnesium 2.4 Total Bilirubin 0.4 D AST 23 D ALT 14 D Alkaline Phosphatase 134 H Total Protein 5.3 L D Albumin 2.4 L D Stool Occult Blood Blood Type Antibody Screen Crossmatch 11/04/17 11/04/17 11/04/17 03:13 09:45 11:25 WBC RBC Hgb Hct MCV MCH MCHC RDW Plt Count MPV Neutrophils % Lymphocytes % Monocytes % Eosinophils % Basophils % PT with INR INR Sodium 142 Potassium 6.6 H* Chloride 103 Carbon Dioxide 32 Anion Gap 7 L BUN 93 H D Creatinine 7.3 H Creat Clearance w eGFR Random Glucose 51 L D Calcium 7.9 L Magnesium Total Bilirubin AST ALT Alkaline Phosphatase Total Protein Albumin Stool Occult Blood Positive Blood Type O POSITIVE Antibody Screen Negative Crossmatch See Detail Active Medications Generic Name Dose Route Start Last Admin Trade Name Freq PRN Reason Stop Dose Admin Chlorhexidine Gluconate 1 applic 11/04/17 22:00 Hibiclens For Decolonization - TP HS NGOC Pantoprazole Sodium 80 mg/ 100 mls @ 10 mls/hr 11/04/17 05:45 11/04/17 06:24 Sodium Chloride IVPB 10 mls/hr Q10H NGOC Administration 8 MG/HR Mupirocin 1 applic 11/04/17 10:00 Bactroban Ointment (For Decolonization) - NS 11/09/17 09:59 BID NGOC ASSESSMENT/PLAN: 67 y/o M w/ PMHx of ESRD (on HD TTS), CAD (s/p CABG and PPM), DM2, HTN, CHF, hx DVT, frequent hospital visits due to missed HD and pain, admitted to ICU for witnessed coffee ground emesis, anemia and urgent hemodialysis Renal: ESRD with HD (TThS) Hx of recently missed dialysis BUN/Cr-93/7.3 K-6.6 Received Ca gluconate, dextrose and 10ui insulin, Na bicarbonate Stat EKG- showed paced ventricular rhythm with increased rate Stat dialysis- receiving dialysis now BMP post dialysis- 7.00pm Monitor electrolytes Dr Campos -seeing Hemonc/GI: hgb-6.3 Could be due to renal disease Witnessed coffee ground emesis- px has been diagnosed in the past with UGI bleed 2/2 gastric ulcers (06/28- [facility]') EGD results (06/28)- Severe reflux esophagitis, persistent large prepyloric and possible malignant gastric ulcer and multiple duodenal ulcers Erythropoetin 10,000 units stat dose given Protonix gtt @10ml/hr Received 1U PRBCs Receiving 2U PRBC with dialysis Repeat CBC- post dialysis Desmopressin drip @ 109mls/hr Goal Hgb>7 Dr Ferguson following- for EGD when stable Cardio: CAD (s/p CABG and PPM) HTN, CHF, hx DVT Currently being transfused Hold antihypertensives and BB Cardiac monitoring Respiratory: Acute respiratory failure On Nasal cannular Titrate Oxygen for spO2>92 Neuro: AAOx3 Hx of Chronic pain On ketorolac Monitor ID: Consulted for parotitis- Dr Gresham Previously treated in past but left AMA before completing vanco Monitoring off antibiotics for now Prophylaxis: GI-protonix DVT- SCDs (anemia) Dispo: Stat dialysis Continue ICU monitoring Visit type - Emergency Visit Emergency Visit: Yes ED Registration Date: 11/04/17 Care time: The patient presented to the Emergency Department on the above date and was hospitalized for further evaluation of their emergent condition. - New Patient This patient is new to me today: Yes Date on this admission: 11/04/17 - Critical Care Critical Care patient: Yes Total Critical Care Time (in minutes): 40 Critical Care Statement: The care of this patient involved high complexity decision making to prevent further life threatening deterioration of the patient 's condition and/or to evaluate & treat vital organ system(s) failure or risk of failure.
--- NOTE | 2017-11-04 15:51 | PN ---
Physical Exam: SUBJECTIVE: Patient seen and examined at bedside. he is complaining of pain all over his body, he vomittined blood in AM and nurse noticed dark stool with dark blood when she was changing his diaper. He is lethargic but abusable. OBJECTIVE: Vital Signs Period Temp Pulse Resp BP Sys/Hinds Pulse Ox Last 24 Hr 97.4 F-97.9 F 63-88 14-18 115-149/49-72 98-100 GENERAL: Lethargic but arousable in mild distress. HEAD: Normal with no signs of trauma.left parotid enlargement. EYES: sclera icteric, conjunctiva clear. ENT: dry mucous membranes. NECK: supple. LUNGS: Breath sounds equal, clear to auscultation bilaterally, no wheezes, no crackles, no accessory muscle use. HEART: Regular rate and rhythm, S1, S2 without murmur, rub or gallop. ABDOMEN: Soft, nontender, nondistended, normoactive bowel sounds, no guarding, no rebound, EXTREMITIES: 2+ pulses, warm, well-perfused, no edema. 3rd finger ambutation right hand. NEUROLOGICAL: No focal deficit. Normal speech, gait not observed. SKIN: Warm, dry, Laboratory Results - last 24 hr 11/04/17 11/04/17 11/04/17 02:50 02:50 02:50 WBC 6.8 D RBC 2.10 L D Hgb 6.3 L* D Hct 20.0 L D MCV 94.9 MCH 29.8 MCHC 31.4 L RDW 18.3 H Plt Count 145 D MPV 8.4 D Neutrophils % 77.2 Lymphocytes % 8.2 D Monocytes % 10.2 Eosinophils % 3.2 Basophils % 1.2 PT with INR 15.50 H INR 1.37 H Sodium 140 Potassium 6.3 H* D Chloride 101 Carbon Dioxide 31 Anion Gap 8 BUN 75 H D Creatinine 7.2 H D Creat Clearance w eGFR 7.62 Random Glucose 120 H D Calcium 7.7 L Magnesium 2.4 Total Bilirubin 0.4 D AST 23 D ALT 14 D Alkaline Phosphatase 134 H Total Protein 5.3 L D Albumin 2.4 L D Stool Occult Blood Blood Type Antibody Screen Crossmatch 11/04/17 11/04/17 11/04/17 03:13 09:45 11:25 WBC RBC Hgb Hct MCV MCH MCHC RDW Plt Count MPV Neutrophils % Lymphocytes % Monocytes % Eosinophils % Basophils % PT with INR INR Sodium 142 Potassium 6.6 H* Chloride 103 Carbon Dioxide 32 Anion Gap 7 L BUN 93 H D Creatinine 7.3 H Creat Clearance w eGFR Random Glucose 51 L D Calcium 7.9 L Magnesium Total Bilirubin AST ALT Alkaline Phosphatase Total Protein Albumin Stool Occult Blood Positive Blood Type O POSITIVE Antibody Screen Negative Crossmatch See Detail Active Medications Generic Name Dose Route Start Last Admin Trade Name Mary PRN Reason Stop Dose Admin Chlorhexidine Gluconate 1 applic 11/04/17 22:00 Hibiclens For Decolonization - TP HS NGOC Pantoprazole Sodium 80 mg/ 100 mls @ 10 mls/hr 11/04/17 05:45 11/04/17 06:24 Sodium Chloride IVPB 10 mls/hr Q10H NGOC Administration 8 MG/HR Mupirocin 1 applic 11/04/17 10:00 Bactroban Ointment (For Decolonization) - NS 11/09/17 09:59 BID NGOC CBC, BMP 11/04/17 02:50 11/04/17 11:25 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, CAD s/p CABG and stents who presented to ER with generalized pain and developed upper GI bleed # Upper GI bleed david 2/2 Peptic ulcer vs varies * Admit to ICU * H/H 6.320 * NPO * Occult blood + * 2 large IV pores * 2 PRBC transfused , * Transfuse as needed to keep Hgb >7 or if he has active bleeding * 1 FFP given * 1 DDAVP * GI consulted * Endoscopy planned after dialysis * Monitor H/H q 6hr * Protonix drip * Type and screen * Coag study * # ESRD , * On HD (,,)non compliant * Missed last dialysis on Thursday * Nephrology consulted * Had HD today at bed side in ICU * Monitor BMP * # Hyperkalemia * K 6.3 on admission , with EKG changes * Dextrose, IV insuline 10 units and Gluconate ca * HD today * Repeat in AM #AMS 2/2 acute metabolic encephalopathy vs GI bleeding vs electrolytes imbalance * HD * PRBC tanasfusion as needed * Hyperkalemia treated medically and HD # Parotitis , * chronic enlargement but no signs on infection * monitor off Abx * # DM * non compliant * BGM ACHS * ISS * Had Hypoglycemi today of 50 treated with D5w * # HTN , * Hold his home meds due to low BP in setting of GI bleed * Continue to monitor * # H/O CHF , CAD S/P CABG * Daily weight * I&O * Manage volume with HD # Legs pain * Doplex to R/O DVT * SCDS both legs , no chemoprophylaxis due to bleeding. * # FEN * F: D5w * E: Hyperkalemia , repeat in AM * N : NPO pending endoscopy # Proph * DVT : SCDS Both legs * GI: Protonix drip * # Dispo : * Admit to ICU Visit type - Emergency Visit Emergency Visit: Yes ED Registration Date: 11/04/17 Care time: The patient presented to the Emergency Department on the above date and was hospitalized for further evaluation of their emergent condition. - New Patient This patient is new to me today: Yes Date on this admission: 11/04/17 - Critical Care Critical Care patient: Yes Total Critical Care Time (in minutes): 40 Critical Care Statement: The care of this patient involved high complexity decision making to prevent further life threatening deterioration of the patient 's condition and/or to evaluate & treat vital organ system(s) failure or risk of failure. - Discharge Referral Referred to [facility] No
--- NOTE | 2017-11-04 16:11 | PN ---
Teaching Attending Note Name of Resident: Lalo Campbell ATTENDING PHYSICIAN STATEMENT I saw and evaluated the patient. I reviewed the resident's note and discussed the case with the resident. I agree with the resident's findings and plan as documented. SUBJECTIVE: No fever or chills , he complains of pain in all his body. had melena this am OBJECTIVE: NAD, comfortable , lethargic , but araousable no facial droop. CV: RRR, unable to hear murmurs due to upper airway noises Abd: soft, NT, ND, Nl BS . EXt: R foot edema . no erythema ASSESSMENT AND PLAN: 66 Y/o unfortunate man with h/o ESRD on HD (,,Thu), CHF, CABG, PPM, DM, Right 3rd digit amputation, CAD s/p CABG and stents who presented to ER with generalized pain and developed upper GI bleed 1- Upper GI bleed: has h/o gastric, esophageal and duodenal ulcers, now uremic and non-compliant - for EGD after HD . - received 2 RBC - repeat H&H - transfuse to keep Hb> 7, or if active bleed. - cont PPI gtt - received DDAVP x 1 this am 2- ESRD : with hyperkalemia s/p missing HD yesterday. - Currently getting HD . - follow electrolytes. 3- L Parotitis: was being treated with vanco last admission when he left AMA. ID eval appreciated 4- DM :hypoglycemic. received dextrose 5- h/o CHF : volume management with HD 6- HTN: hold BP meds in setting of active GI bleed DVT PX : SCDs
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
[2017-11-04 19:02] LABS: BASO % 0.9 % (0-2.0); EOS % 3.1 % (0-4.5); HEMATOCRIT 30.1 % (35.4-49); LYMPH % 4.3 % (8-40); MCH 30.4 pg (25.7-33.7); MCHC 33.3 g/dl (32.0-35.9); MEAN CELL VOLUME 91.3 fl (80-96); MEAN PLT VOLUME 8.8 fl (7.5-11.1); MONO % 8.1 % (3.8-10.2); NEUT % 83.6 % (42.8-82.8); PLATELET COUNT 114 K/MM3 (134-434); RDW 16.5 % (11.9-15.9); WHITE BLOOD COUNT 8.6 K/mm3 (4.0-10.0)
[2017-11-04 22:37] LABS: ALBUMIN 2.5 g/dl (3.4-5.0); ANION GAP 9 (8-16); BLOOD UREA NITROGEN 43 mg/dL (7-18); CALCIUM 7.5 mg/dL (8.5-10.1); CHLORIDE 105 mmol/L (98-107); CO2 32 mmol/L (21-32); CREATININE 3.7 mg/dL (0.7-1.3); GLUCOSE,RANDOM 90 mg/dL (74-106); MAGNESIUM 2.2 mg/dL (1.8-2.4); PHOSPHOROUS 2.7 mg/dL (2.5-4.9); POTASSIUM 4.1 mmol/L (3.5-5.1); SGOT/AST 27 U/L (15-37); SGPT/ALT 12 U/L (12-78); SODIUM 146 mmol/L (136-145)
[2017-11-04 22:38] LABS: ALK PHOS 128 U/L (45-117); BILIRUBIN,TOTAL 0.8 mg/dL (0.2-1.0); TOT PROT 5.7 g/dl (6.4-8.2)
[2017-11-05 00:41] LABS: BASO % 1.4 % (0-2.0); EOS % 4.6 % (0-4.5); HEMATOCRIT 25.5 % (35.4-49); HEMOGLOBIN 8.4 GM/dL (11.7-16.9); LYMPH % 4.6 % (8-40); MCH 30.2 pg (25.7-33.7); MCHC 33.1 g/dl (32.0-35.9); MEAN CELL VOLUME 91.2 fl (80-96); MEAN PLT VOLUME 9.9 fl (7.5-11.1); MONO % 8.1 % (3.8-10.2); NEUT % 81.3 % (42.8-82.8); PLATELET COUNT 141 K/MM3 (134-434); RBC 2.79 M/mm3 (4.00-5.60); RDW 17.4 % (11.9-15.9); WHITE BLOOD COUNT 8.2 K/mm3 (4.0-10.0)
[2017-11-05] MEDS: PANTOPRAZOLE SODIUM 80 MG in SODIUM CHLORIDE 100 ML IVPB SCH ×2 (00:53→21:20)
[2017-11-05] MEDS: CHLORHEXIDINE GLUCONATE 4% CLEANSER FOR DECOLONIZATION TP SCH ×2 (00:57→21:20)
[2017-11-05] MEDS: MUPIROCIN 2% TOPICAL OINTMENT FOR DECOLONIZATION NS SCH ×5 (00:57→21:20)
--- NOTE | 2017-11-05 07:51 | PN ---
Progress Note, Physician Chief Complaint: ID Afebrile off antibiotics - Current Medication List Current Medications: Active Medications Chlorhexidine Gluconate (Hibiclens For Decolonization -) 1 applic TP HS NGOC Last Admin: 11/05/17 00:57 Dose: 1 applic Fentanyl (Sublimaze Injection -) 50 mcg IVPUSH Q2H PRN PRN Reason: BACK PAIN Stop: 11/06/17 01:59 Last Admin: 11/05/17 02:08 Dose: 50 mcg Pantoprazole Sodium 80 mg/ (Sodium Chloride) 100 mls @ 10 mls/hr IVPB Q10H NGOC PRN Reason: 8 MG/HR Last Admin: 11/05/17 00:53 Dose: 10 mls/hr Mupirocin (Bactroban Ointment (For Decolonization) -) 1 applic NS BID NGOC Stop: 11/09/17 09:59 Last Admin: 11/05/17 00:57 Dose: 1 applic - Objective Vital Signs: Vital Signs Temperature 98 F 11/05/17 02:00 Pulse Rate 74 11/05/17 06:00 Respiratory Rate 20 11/05/17 06:00 Blood Pressure 126/48 11/05/17 06:00 O2 Sat by Pulse Oximetry (%) 100 11/04/17 14:33 Constitutional: Yes: No Distress HENT: Yes: Other (mild residual swelling left parotid) Cardiovascular: Yes: Murmur, S1, S2, Other (2/6 apical murmur) Respiratory: Yes: WNL, Regular, CTA Bilaterally Gastrointestinal: Yes: Soft. No: Tenderness Edema: No Labs: CBC, BMP 11/05/17 00:15 11/04/17 21:00 INR, PTT INR 1.37 (0.82-1.09) H 11/04/17 02:50 Assessment/Plan Microbiology Laboratory Tests 11/05/17 00:15 WBC 8.2 Hgb 8.4 L D Hct 25.5 L D Plt Count 141 D Assesment At this time do not see an ID related issue Parotid swelling mostly resolved
[2017-11-05 08:27] LABS: BASO % 0.9 % (0-2.0); EOS % 4.6 % (0-4.5); HEMATOCRIT 26.9 % (35.4-49); HEMOGLOBIN 8.8 GM/dL (11.7-16.9); LYMPH % 8.2 % (8-40); MCHC 32.7 g/dl (32.0-35.9); MEAN CELL VOLUME 91.8 fl (80-96); MEAN PLT VOLUME 8.8 fl (7.5-11.1); NEUT % 74.3 % (42.8-82.8); PLATELET COUNT 102 K/MM3 (134-434); RBC 2.93 M/mm3 (4.00-5.60); RDW 17.4 % (11.9-15.9); WHITE BLOOD COUNT 8.9 K/mm3 (4.0-10.0)
[2017-11-05 08:37] LABS: ALBUMIN 2.5 g/dl (3.4-5.0); ANION GAP 9 (8-16); BLOOD UREA NITROGEN 46 mg/dL (7-18); CALCIUM 8.5 mg/dL (8.5-10.1); CHLORIDE 105 mmol/L (98-107); CO2 32 mmol/L (21-32); GLUCOSE,RANDOM 87 mg/dL (74-106); MAGNESIUM 2.2 mg/dL (1.8-2.4); POTASSIUM 4.5 mmol/L (3.5-5.1); SODIUM 146 mmol/L (136-145)
[2017-11-05 08:41] LABS: ALK PHOS 129 U/L (45-117); BILIRUBIN,TOTAL 0.6 mg/dL (0.2-1.0); CREATININE 4.5 mg/dL (0.7-1.3); SGOT/AST 26 U/L (15-37); SGPT/ALT 12 U/L (12-78); TOT PROT 5.7 g/dl (6.4-8.2)
--- NOTE | 2017-11-05 09:38 | PN ---
Physical Exam: SUBJECTIVE: Patient seen and examined at bed side, More awake and oriented more arousable. denies nay pain , denies any fever, chills, N/V/D/C. noticed some dark blood with the stool during theexam OBJECTIVE: Vital Signs Period Temp Pulse Resp BP Sys/Hinds Pulse Ox Last 24 Hr 97.6 F-98.9 F 63-101 14-20 99-157/41-78 100-100 GENERAL: The patient is awake, alert, and fully oriented, in no acute distress. HEAD: Normal with no signs of trauma. EYES: sclera icteric, conjunctiva clear. ENT: dry mucous membranes.poor dentation. NECK: supple. LUNGS: B/L base crackles, no wheezes, no accessory muscle use. HEART: Regular rate and rhythm, S1, S2 without murmur, rub or gallop. ABDOMEN: Soft, nontender, nondistended, normoactive bowel sounds, no guarding, no rebound EXTREMITIES: 2+ pulses, warm, well-perfused, no edema. 3rd right finger amputation. NEUROLOGICAL: Cranial nerves II through XII grossly intact. Normal speech, gait not observed. PSYCH: Normal mood, normal affect. SKIN: Warm, dry, no skin ulcer Laboratory Results - last 24 hr 11/04/17 11/04/17 11/04/17 03:13 09:45 11:25 WBC RBC Hgb Hct MCV MCH MCHC RDW Plt Count MPV Neutrophils % Lymphocytes % Monocytes % Eosinophils % Basophils % Sodium 142 Potassium 6.6 H* Chloride 103 Carbon Dioxide 32 Anion Gap 7 L BUN 93 H D Creatinine 7.3 H Creat Clearance w eGFR POC Glucometer Random Glucose 51 L D Calcium 7.9 L Phosphorus Magnesium Total Bilirubin AST ALT Alkaline Phosphatase Total Protein Albumin Stool Occult Blood Positive Blood Type O POSITIVE Antibody Screen Negative Crossmatch See Detail 11/04/17 11/04/17 11/04/17 14:52 18:30 21:00 WBC 8.6 RBC 3.30 L D Hgb 10.0 L D Hct 30.1 L D MCV 91.3 MCH 30.4 MCHC 33.3 RDW 16.5 H Plt Count 114 L D MPV 8.8 Neutrophils % 83.6 H Lymphocytes % 4.3 L D Monocytes % 8.1 Eosinophils % 3.1 Basophils % 0.9 Sodium 146 H Potassium 4.1 D Chloride 105 Carbon Dioxide 32 Anion Gap 9 BUN 43 H D Creatinine 3.7 H D Creat Clearance w eGFR 16.42 POC Glucometer [phone] Random Glucose 90 D Calcium 7.5 L Phosphorus 2.7 Magnesium 2.2 Total Bilirubin 0.8 D AST 27 ALT 12 Alkaline Phosphatase 128 H Total Protein 5.7 L Albumin 2.5 L Stool Occult Blood Blood Type Antibody Screen Crossmatch 11/05/17 11/05/17 11/05/17 00:15 07:50 07:50 WBC 8.2 8.9 RBC 2.79 L 2.93 L Hgb 8.4 L D 8.8 L Hct 25.5 L D 26.9 L MCV 91.2 91.8 MCH 30.2 30.0 MCHC 33.1 32.7 RDW 17.4 H 17.4 H Plt Count 141 D 102 L D MPV 9.9 D 8.8 D Neutrophils % 81.3 74.3 Lymphocytes % 4.6 L 8.2 D Monocytes % 8.1 12.0 H Eosinophils % 4.6 H 4.6 H Basophils % 1.4 0.9 Sodium 146 H Potassium 4.5 Chloride 105 Carbon Dioxide 32 Anion Gap 9 BUN 46 H Creatinine 4.5 H D Creat Clearance w eGFR 13.10 POC Glucometer Random Glucose 87 Calcium 8.5 Phosphorus 4.0 D Magnesium 2.2 Total Bilirubin 0.6 D AST 26 ALT 12 Alkaline Phosphatase 129 H Total Protein 5.7 L Albumin 2.5 L Stool Occult Blood Blood Type Antibody Screen Crossmatch Active Medications Generic Name Dose Route Start Last Admin Trade Name Freq PRN Reason Stop Dose Admin Chlorhexidine Gluconate 1 applic 11/04/17 22:00 11/05/17 00:57 Hibiclens For Decolonization - TP 1 applic HS NGOC Administration Fentanyl 50 mcg 11/05/17 01:47 11/05/17 02:08 Sublimaze Injection - IVPUSH 11/06/17 01:59 50 mcg Q2H PRN Administration BACK PAIN Pantoprazole Sodium 80 mg/ 100 mls @ 10 mls/hr 11/04/17 05:45 11/05/17 00:53 Sodium Chloride IVPB 10 mls/hr Q10H NGOC Administration 8 MG/HR Mupirocin 1 applic 11/04/17 10:00 11/05/17 09:02 Bactroban Ointment (For Decolonization) - NS 11/09/17 09:59 1 applic BID NGOC Administration CBC, BMP 11/05/17 07:50 11/05/17 07:50 Microbiology 11/04/17 11:25 Blood Culture - Preliminary Blood - Peripheral Venous NO GROWTH OBTAINED AFTER 24 HOURS, INCUBATION TO CONTINUE FOR 4 DAYS. 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, CAD s/p CABG and stents who presented to ER with generalized pain and developed upper GI bleed # Upper GI bleed likley 2/2 Peptic ulcer vs varies * Admit to ICU * H/H 6.12/29 today 8.8.26.9 continue to monitor * NPO , for EGD , lequid diet after EGD * Occult blood + * 2 large IV pores * 2 PRBC transfused , * Transfuse as needed to keep Hgb >7 or if he has active bleeding * S/P 1 FFP given * S/P 1 DDAVP * GI consulted * Endoscopy today shows 3 antral ulcers esophagitis ulcer and biopsy was taken for H.Pylori * Monitor H/H q * Protonix 40 mg bID * Type and screen * Coag study * No NSAIDS , NO AC , NO ASA * No Narcotics , * # ESRD , * On HD (T,T,Sa)non compliant * Missed last dialysis on Thursday * Nephrology consulted * Had HD yesterday at bed side in ICU, another HD in AM * Monitor BMP * # Hyperkalemia , resolved * K 6.3 on admission , with no EKG changes , K 4.5 today * Dextrose, IV insuline 10 units and Gluconate ca * 2nd HD in AM * Repeat in AM #AMS 2/2 acute metabolic encephalopathy vs GI bleeding vs electrolytes imbalance , resolved * HD * PRBC tanasfusion as needed * Hyperkalemia treated medically and HD #H/O Parotitis , * chronic enlargement but no signs on infection * monitor off Abx * # DM * non compliant * BGM ACHS * ISS * Had Hypoglycemi today of 50 treated with D5w * # HTN , * Hold his home meds due to low BP in setting of GI bleed * Continue to monitor * # H/O CHF , CAD S/P CABG * Daily weight * I&O * Manage volume with HD # Legs pain * Doplex LE :negative for DVT * SCDS both legs , no chemoprophylaxis due to bleeding. * # FEN * F: D5w * E: Monitor * N : Lequid diet after EGD , advanced as tolerated # Proph * DVT : SCDS Both legs * GI: Protonix 40 mg IV BID * # Dispo : * Admit to ICU , transferred to day to floor * F/U H/H * No Narcotics , No NSAIDS Visit type - Emergency Visit Emergency Visit: Yes ED Registration Date: 11/04/17 Care time: The patient presented to the Emergency Department on the above date and was hospitalized for further evaluation of their emergent condition. - New Patient This patient is new to me today: No - Critical Care Critical Care patient: Yes Total Critical Care Time (in minutes): 40 Critical Care Statement: The care of this patient involved high complexity decision making to prevent further life threatening deterioration of the patient 's condition and/or to evaluate & treat vital organ system(s) failure or risk of failure. - Discharge Referral Referred to [facility] Med P.C.: No
[2017-11-05] MEDS ORDERED: PT OWN MED DRAWER 7, Y5N ONE ×2 (12:26→14:17)
--- NOTE | 2017-11-05 12:27 | PN ---
Teaching Attending Note Name of Resident: James Olivera ATTENDING PHYSICIAN STATEMENT I saw and evaluated the patient. I reviewed the resident's note and discussed the case with the resident. I agree with the resident's findings and plan as documented. SUBJECTIVE: Patient seen and examined in the ICU. Drowsy but easily arousable. Denies CP or SOB. Will be having endoscopic evaluation for GI bleeding. Intake & Output 11/02/17 11/03/17 11/04/17 11/05/17 23:59 23:59 23:59 23:59 Intake Total 240 70 Balance 240 70 Weight 140 lb 140 lb 194 lb 6 oz Last Vital Signs Temp Pulse Resp BP Pulse Ox 98.3 F 70 20 109/60 100 11/05/17 09:59 11/05/17 09:59 11/05/17 09:59 11/05/17 09:59 11/04/17 14:33 Active Medications Chlorhexidine Gluconate (Hibiclens For Decolonization -) 1 applic TP HS NGOC Last Admin: 11/05/17 00:57 Dose: 1 applic Fentanyl (Sublimaze Injection -) 50 mcg IVPUSH Q2H PRN PRN Reason: BACK PAIN Stop: 11/06/17 01:59 Last Admin: 11/05/17 11:07 Dose: 50 mcg Pantoprazole Sodium 80 mg/ (Sodium Chloride) 100 mls @ 10 mls/hr IVPB Q10H NGOC PRN Reason: 8 MG/HR Last Admin: 11/05/17 00:53 Dose: 10 mls/hr Mupirocin (Bactroban Ointment (For Decolonization) -) 1 applic NS BID NGOC Stop: 11/09/17 09:59 Last Admin: 11/05/17 09:02 Dose: 1 applic Gen: Drowsy but arousable Heart: RRR Lung: scattered bilateral rhonchi Abd: soft, nontender Ext: no edema Laboratory Results - last 24 hr 11/04/17 11/04/17 11/04/17 03:13 11:25 14:52 WBC RBC Hgb Hct MCV MCH MCHC RDW Plt Count MPV Neutrophils % Lymphocytes % Monocytes % Eosinophils % Basophils % Sodium 142 Potassium 6.6 H* Chloride 103 Carbon Dioxide 32 Anion Gap 7 L BUN 93 H D Creatinine 7.3 H Creat Clearance w eGFR POC Glucometer [phone] Random Glucose 51 L D Calcium 7.9 L Phosphorus Magnesium Total Bilirubin AST ALT Alkaline Phosphatase Total Protein Albumin Blood Type O POSITIVE Antibody Screen Negative Crossmatch See Detail 11/04/17 11/04/17 11/05/17 18:30 21:00 00:15 WBC 8.6 8.2 RBC 3.30 L D 2.79 L Hgb 10.0 L D 8.4 L D Hct 30.1 L D 25.5 L D MCV 91.3 91.2 MCH 30.4 30.2 MCHC 33.3 33.1 RDW 16.5 H 17.4 H Plt Count 114 L D 141 D MPV 8.8 9.9 D Neutrophils % 83.6 H 81.3 Lymphocytes % 4.3 L D 4.6 L Monocytes % 8.1 8.1 Eosinophils % 3.1 4.6 H Basophils % 0.9 1.4 Sodium 146 H Potassium 4.1 D Chloride 105 Carbon Dioxide 32 Anion Gap 9 BUN 43 H D Creatinine 3.7 H D Creat Clearance w eGFR 16.42 POC Glucometer Random Glucose 90 D Calcium 7.5 L Phosphorus 2.7 Magnesium 2.2 Total Bilirubin 0.8 D AST 27 ALT 12 Alkaline Phosphatase 128 H Total Protein 5.7 L Albumin 2.5 L Blood Type Antibody Screen Crossmatch 11/05/17 11/05/17 07:50 07:50 WBC 8.9 RBC 2.93 L Hgb 8.8 L Hct 26.9 L MCV 91.8 MCH 30.0 MCHC 32.7 RDW 17.4 H Plt Count 102 L D MPV 8.8 D Neutrophils % 74.3 Lymphocytes % 8.2 D Monocytes % 12.0 H Eosinophils % 4.6 H Basophils % 0.9 Sodium 146 H Potassium 4.5 Chloride 105 Carbon Dioxide 32 Anion Gap 9 BUN 46 H Creatinine 4.5 H D Creat Clearance w eGFR 13.10 POC Glucometer Random Glucose 87 Calcium 8.5 Phosphorus 4.0 D Magnesium 2.2 Total Bilirubin 0.6 D AST 26 ALT 12 Alkaline Phosphatase 129 H Total Protein 5.7 L Albumin 2.5 L Blood Type Antibody Screen Crossmatch ASSESSMENT AND PLAN: GI Bleed Acute Blood Loss Anemia Hyperkalemia ESRD on HD Altered Mental Status likely Toxic Metabolic Encephalopathy CAD s/p CABG HTN DM h/o DVT Noncompliance - HD Per Renal - Normal transfusion thresholds - Monitor H/H - PPI - Maintain large peripheral bore access - Aspiration precautions - DVT prophylaxis - For Endoscopic evaluation today Dr Briscoe critical care time spent in reviewing chart, evaluating patient and formulating plan 35 min
--- NOTE | 2017-11-05 13:07 | PN ---
Physical Exam: SUBJECTIVE: Patient seen and examined The patient is a 67 year old male with a history of ESRD, CAD, DM, HTN, CHF with frequent hospital visits for missed HD who was admitted to the ICU for coffee ground emesis with a HGB of 6.3 and electrolyte derangement requiring urgent dialysis for a hyperkalemia of 6.3. Patient reports significant improvement in his symptoms and currently denies any complaints. He denies any episodes of emesis. He is to have EGD performed today. Otherwise no acute events overnight. OBJECTIVE: Vital Signs Period Temp Pulse Resp BP Sys/Hinds Pulse Ox Last 24 Hr 97.6 F-98.9 F 66-101 14-20 99-157/41-78 100-100 GENERAL: The patient is awake, alert, and fully oriented, in no acute distress. HEAD: Normal with no signs of trauma. EYES: sclera anicteric, conjunctiva clear. No ptosis. ENT: oropharynx clear without exudates, moist mucous membranes. NECK: Trachea midline, full range of motion, supple. LUNGS: Breath sounds equal, clear to auscultation bilaterally, no wheezes, no crackles, no accessory muscle use. HEART: Regular rate and rhythm, S1, S2 without murmur, rub or gallop. ABDOMEN: Soft, nondistended, normoactive bowel sounds, Mild epigastric tenderness to palpation, no guarding, no rebound, no hepatosplenomegaly, no masses. EXTREMITIES: 2+ pulses, warm, well-perfused, NEUROLOGICAL: Normal speech, gait not observed. PSYCH: Normal mood, normal affect. SKIN: Warm, dry, normal turgor, no rashes or lesions noted Laboratory Results - last 24 hr 11/04/17 11/04/17 11/04/17 03:13 14:52 18:30 WBC 8.6 RBC 3.30 L D Hgb 10.0 L D Hct 30.1 L D MCV 91.3 MCH 30.4 MCHC 33.3 RDW 16.5 H Plt Count 114 L D MPV 8.8 Neutrophils % 83.6 H Lymphocytes % 4.3 L D Monocytes % 8.1 Eosinophils % 3.1 Basophils % 0.9 Sodium Potassium Chloride Carbon Dioxide Anion Gap BUN Creatinine Creat Clearance w eGFR POC Glucometer [phone] Random Glucose Calcium Phosphorus Magnesium Total Bilirubin AST ALT Alkaline Phosphatase Total Protein Albumin Blood Type O POSITIVE Antibody Screen Negative Crossmatch See Detail 11/04/17 11/05/17 11/05/17 21:00 00:15 07:50 WBC 8.2 8.9 RBC 2.79 L 2.93 L Hgb 8.4 L D 8.8 L Hct 25.5 L D 26.9 L MCV 91.2 91.8 MCH 30.2 30.0 MCHC 33.1 32.7 RDW 17.4 H 17.4 H Plt Count 141 D 102 L D MPV 9.9 D 8.8 D Neutrophils % 81.3 74.3 Lymphocytes % 4.6 L 8.2 D Monocytes % 8.1 12.0 H Eosinophils % 4.6 H 4.6 H Basophils % 1.4 0.9 Sodium 146 H Potassium 4.1 D Chloride 105 Carbon Dioxide 32 Anion Gap 9 BUN 43 H D Creatinine 3.7 H D Creat Clearance w eGFR 16.42 POC Glucometer Random Glucose 90 D Calcium 7.5 L Phosphorus 2.7 Magnesium 2.2 Total Bilirubin 0.8 D AST 27 ALT 12 Alkaline Phosphatase 128 H Total Protein 5.7 L Albumin 2.5 L Blood Type Antibody Screen Crossmatch 11/05/17 07:50 WBC RBC Hgb Hct MCV MCH MCHC RDW Plt Count MPV Neutrophils % Lymphocytes % Monocytes % Eosinophils % Basophils % Sodium 146 H Potassium 4.5 Chloride 105 Carbon Dioxide 32 Anion Gap 9 BUN 46 H Creatinine 4.5 H D Creat Clearance w eGFR 13.10 POC Glucometer Random Glucose 87 Calcium 8.5 Phosphorus 4.0 D Magnesium 2.2 Total Bilirubin 0.6 D AST 26 ALT 12 Alkaline Phosphatase 129 H Total Protein 5.7 L Albumin 2.5 L Blood Type Antibody Screen Crossmatch Active Medications Generic Name Dose Route Start Last Admin Trade Name Freq PRN Reason Stop Dose Admin Chlorhexidine Gluconate 1 applic 11/04/17 22:00 11/05/17 00:57 Hibiclens For Decolonization - TP 1 applic HS NGOC Administration Fentanyl 50 mcg 11/05/17 01:47 11/05/17 11:07 Sublimaze Injection - IVPUSH 11/06/17 01:59 50 mcg Q2H PRN Administration BACK PAIN Pantoprazole Sodium 80 mg/ 100 mls @ 10 mls/hr 11/04/17 05:45 11/05/17 00:53 Sodium Chloride IVPB 10 mls/hr Q10H NGOC Administration 8 MG/HR Mupirocin 1 applic 11/04/17 10:00 11/05/17 09:02 Bactroban Ointment (For Decolonization) - NS 11/09/17 09:59 1 applic BID NGOC Administration ASSESSMENT/PLAN: The patient is a 67 year old male with a history of ESRD, CAD, DM, HTN, CHF with frequent hospital visits for missed HD who was admitted to the ICU for coffee ground emesis with a HGB of 6.3 and electrolyte derangement requiring urgent dialysis for a hyperkalemia of 6.3. NEURO Patient is alert and oriented x3. No issues currently. -Will continue to monitor. CV #HTN, CHF, CAD -Patient was transfused yesterday. -Currently holding antihypertensives. -Will continue to monitor. RESP #Acute respiratory failure (Improved) -Will continue to monitor. GI #Coffee ground emesis The patient was admitted for witnessed coffee ground emesis with a Hgb of 6.3. The patient has a history of UGI bleeds secondary to gastric ulcers and it is possible he is experiencing another upper gi bleed. He has not had any more episodes of coffee ground emesis while here in the ICU and is currently denying any symptoms. -Patient received erythropoetin 10,000 units yesterday. -Patient has received a total of 3 U of PRBCs -HGB has improved this morning to 8.8 and is stable. -Continue protonix -Patient to undergo EGD today. -Will continue to monitor Heme #Anemia. Stable at this time -Will continue to monitor h/h Renal #ESRD on HD (TThS) The patient has a history of missed dialysis with a recent history of missed dialysis prompting his presentation. The patient was noted to have a hyperkalemia on admission of 6.6 requiring urgent HD. The patient's hyperkalemia is now improved post-dialysis. The patient has a biventricular pacer in place making cardiac complications from hyperkalemia unlikely given his paced rhythm. -Electrolytes improved post dialysis. -Will continue to monitor bun/cr. -Will continue to monitor electrolytes. ID ID was consulted for parotitis previously treated in the past. -Monitoring off antibiotics per ID recommendations at this time. MSK No issues currently FEN/GI -Replete electrolytes PRN, will monitor PPX -Continue protonix -Mechanical dvt prophylaxis given the patient's anemia. DISPO: Patient stable for floor monitoring. Visit type - Emergency Visit Emergency Visit: No - New Patient This patient is new to me today: Yes Date on this admission: 11/05/17 - Critical Care Critical Care patient: Yes Total Critical Care Time (in minutes): 35 Critical Care Statement: The care of this patient involved high complexity decision making to prevent further life threatening deterioration of the patient 's condition and/or to evaluate & treat vital organ system(s) failure or risk of failure.
--- NOTE | 2017-11-05 13:13 | PN ---
Teaching Attending Note Name of Resident: Lalo Campbell ATTENDING PHYSICIAN STATEMENT I saw and evaluated the patient. I reviewed the resident's note and discussed the case with the resident. I agree with the resident's findings and plan as documented. SUBJECTIVE: No fever or chills , has no pain, has no SOB OBJECTIVE: NAD, comfortable , awake , cooperative no facial droop. no enlargement in parotid glands CV: RRR, unable to hear murmurs due to upper airway noises Abd: soft, NT, ND, Nl BS . EXt: R foot edema . no erythema no decub on sacral area ASSESSMENT AND PLAN: 66 Y/o unfortunate man with h/o ESRD on HD (,,Thu), CHF, CABG, PPM, DM, Right 3rd digit amputation, CAD s/p CABG and stents who presented to ER with generalized pain and developed upper GI bleed 1- Upper GI bleed: has h/o gastric, esophageal and duodenal ulcers, now uremic and non-compliant - for EGD today - received 2 RBC yesterday, Hb stable, will repeat this afternoon - transfuse to keep Hb> 7, or if active bleed. - cont PPI gtt - pt admits to taking asa as outpt , he was advised to stop it 2- ESRD : - s/p HD yesterda. further HD per renal - follow electrolytes. 3- h/o L Parotitis: no Abx 4- DM :hypoglycemia resolved. monitor . 5- h/o CHF : volume management with HD 6- HTN: hold BP meds in setting of active GI bleed DVT PX: SCDs Critical Care Total Critical Care Time (in minutes): 35 Critical Care Statement: The care of this patient involved high complexity decision making to prevent further life threatening deterioration of the patient 's condition and/or to evaluate & treat vital organ system(s) failure or risk of failure.
--- NOTE | 2017-11-05 13:29 | PROC ---
Endoscopy Procedure Endoscopy procedure completed. Please see scanned procedure report. 3 deep, white-based, non-bleeding antral ulcers w/o stigmata of impending bleeding were found and clipped w/o immediate complications. Random biopsies for H.pylori taken Grade 4 esophagitis just above GEJ found, biopsies taken PPI Carafate Liquid diet No NSAIDs Regular floor OK from GI perspective
[2017-11-05] MEDS ORDERED: SUCRALFATE 1 GM/10 ML UNIT DOSE CUPS PO SCH (14:00)
--- NOTE | 2017-11-05 15:33 | PN ---
Progress Note, Physician History of Present Illness: Pt seen and examined at bedside. He is more awake than he was yesterday. He tolerated HD last night. - Current Medication List Current Medications: Active Medications Chlorhexidine Gluconate (Hibiclens For Decolonization -) 1 applic TP HS NGOC Last Admin: 11/05/17 00:57 Dose: 1 applic Fentanyl (Sublimaze Injection -) 50 mcg IVPUSH Q2H PRN PRN Reason: BACK PAIN Stop: 11/06/17 01:59 Last Admin: 11/05/17 11:07 Dose: 50 mcg Pantoprazole Sodium 80 mg/ (Sodium Chloride) 100 mls @ 10 mls/hr IVPB Q10H NGOC PRN Reason: 8 MG/HR Last Admin: 11/05/17 00:53 Dose: 10 mls/hr Mupirocin (Bactroban Ointment (For Decolonization) -) 1 applic NS BID NGOC Stop: 11/09/17 09:59 Last Admin: 11/05/17 09:02 Dose: 1 applic Sucralfate (Carafate Oral Suspension -) 1 gm PO QID [facility] - Objective Vital Signs: Vital Signs Temperature 98.3 F 11/05/17 13:02 Pulse Rate 70 11/05/17 13:02 Respiratory Rate 20 11/05/17 13:02 Blood Pressure 112/46 11/05/17 13:02 O2 Sat by Pulse Oximetry (%) 100 11/04/17 14:33 Constitutional: Yes: Calm Eyes: Yes: Conjunctiva Clear HENT: Yes: Atraumatic Cardiovascular: Yes: S1, S2 Respiratory: Yes: On Nasal O2 Gastrointestinal: Yes: Soft Genitourinary: Yes: Incontinence Musculoskeletal: Yes: Muscle Weakness Edema: No Neurological: Yes: Oriented Labs: CBC, BMP 11/05/17 07:50 11/05/17 07:50 INR, PTT INR 1.37 (0.82-1.09) H 11/04/17 02:50 Problem List - Problems (1) Upper GI bleed Code(s): K92.2 - GASTROINTESTINAL HEMORRHAGE, UNSPECIFIED (2) Acute hyperkalemia Code(s): E87.5 - HYPERKALEMIA (3) ESRD (end stage renal disease) on dialysis Code(s): N18.6 - END STAGE RENAL DISEASE; Z99.2 - DEPENDENCE ON RENAL DIALYSIS Assessment/Plan Current Medications Generic Name Dose Route Start Last Admin Trade Name Mary PRN Reason Stop Dose Admin Chlorhexidine Gluconate 1 applic 11/04/17 22:00 11/05/17 00:57 Hibiclens For Decolonization - TP 1 applic HS NGOC Administration Fentanyl 50 mcg 11/05/17 01:47 11/05/17 11:07 Sublimaze Injection - IVPUSH 11/06/17 01:59 50 mcg Q2H PRN Administration BACK PAIN Pantoprazole Sodium 80 mg/ 100 mls @ 10 mls/hr 11/04/17 05:45 11/05/17 00:53 Sodium Chloride IVPB 10 mls/hr Q10H NGOC Administration 8 MG/HR Mupirocin 1 applic 11/04/17 10:00 11/05/17 09:02 Bactroban Ointment (For Decolonization) - NS 11/09/17 09:59 1 applic BID NGOC Administration Sucralfate 1 gm 11/05/17 14:00 Carafate Oral Suspension - PO QID NGOC Impression 1. ESRD 2. CAD 3. HTN 4. narcotic dependence 5. non compliance 6. pleural effusions 7. anemia 8. chest pain 9. DVT 10. GI Bleed - acute 11. neck pain 12. parotitis 13. hyperkalemia Plan - Hd in am - monitor hg - s/p endoscopy - aranesp on epogen - will discuss sucralfate with GI - will follow
[2017-11-05 17:05] LABS: HEMATOCRIT 27.9 % (35.4-49); HEMOGLOBIN 9.1 GM/dL (11.7-16.9); MCH 30.5 pg (25.7-33.7); MCHC 32.7 g/dl (32.0-35.9); MEAN CELL VOLUME 93.2 fl (80-96); MEAN PLT VOLUME 9.6 fl (7.5-11.1); PLATELET COUNT 130 K/MM3 (134-434); RDW 17.8 % (11.9-15.9); WHITE BLOOD COUNT 7.6 K/mm3 (4.0-10.0)
[2017-11-05] MEDS ORDERED: ACETAMINOPHEN 1000 MG/100 ML VIAL (NON FORMULARY) IVPB ONE (20:30)
[2017-11-05] MEDS: PANTOPRAZOLE 40 MG TABLET (FP) PO SCH (22:39)
[2017-11-06] MEDS ORDERED: LORazepam 2 MG/ML SDV VIAL IM ONE (01:16)
[2017-11-06] MEDS ORDERED: LORazepam 2 MG/ML SDV VIAL ONE (01:19)
[2017-11-06] MEDS: PANTOPRAZOLE 40 MG TABLET (FP) PO SCH ×2 (09:54→21:04)
[2017-11-06] MEDS: INSULIN SLIDING SCALE (NOVOLOG) 1 VIAL SQ SCH ×2 (11:29→18:26)
[2017-11-06 12:09] LABS: HEMATOCRIT 26.4 % (35.4-49); HEMOGLOBIN 8.5 GM/dL (11.7-16.9); MCHC 32.2 g/dl (32.0-35.9); MEAN CELL VOLUME 93.2 fl (80-96); MEAN PLT VOLUME 9.1 fl (7.5-11.1); PLATELET COUNT 107 K/MM3 (134-434); RBC 2.83 M/mm3 (4.00-5.60); RDW 17.6 % (11.9-15.9); WHITE BLOOD COUNT 7.3 K/mm3 (4.0-10.0)
[2017-11-06 12:24] LABS: ALBUMIN 2.8 g/dl (3.4-5.0); ALK PHOS 148 U/L (45-117); ANION GAP 12 (8-16); BILIRUBIN,TOTAL 0.6 mg/dL (0.2-1.0); BLOOD UREA NITROGEN 62 mg/dL (7-18); CALCIUM 8.4 mg/dL (8.5-10.1); CHLORIDE 102 mmol/L (98-107); CO2 29 mmol/L (21-32); CREATININE 5.9 mg/dL (0.7-1.3); GLUCOSE,RANDOM 80 mg/dL (74-106); MAGNESIUM 2.4 mg/dL (1.8-2.4); PHOSPHOROUS 5.2 mg/dL (2.5-4.9); SGOT/AST 32 U/L (15-37); SGPT/ALT 13 U/L (12-78); SODIUM 143 mmol/L (136-145); TOT PROT 6.4 g/dl (6.4-8.2)
[2017-11-06] MEDS ORDERED: EPOETIN ALFA 10,000 UNIT/1 ML VIAL IVPUSH ONE (14:30)
--- NOTE | 2017-11-06 16:52 | PN ---
Progress Note, Physician History of Present Illness: Pt seen and examined at bedside. He is awake and appears comfortable. He denies vomiting. - Current Medication List Current Medications: Active Medications Insulin Aspart (Novolog Vial Sliding Scale -) 1 vial SQ TIDAC NGOC PRN Reason: Protocol Last Admin: 11/06/17 11:29 Dose: Not Given Pantoprazole Sodium (Protonix -) 40 mg PO BID [facility] Last Admin: 11/06/17 09:54 Dose: 40 mg - Objective Vital Signs: Vital Signs Temperature 98.7 F 11/06/17 14:40 Pulse Rate 222 H 11/06/17 16:43 Respiratory Rate 18 11/06/17 16:43 Blood Pressure 137/59 11/06/17 16:43 O2 Sat by Pulse Oximetry (%) 95 11/06/17 10:00 Constitutional: Yes: Calm Eyes: Yes: Conjunctiva Clear HENT: Yes: Atraumatic Neck: Yes: Supple Cardiovascular: Yes: S1, S2 Respiratory: Yes: CTA Bilaterally Gastrointestinal: Yes: Soft Genitourinary: Yes: WNL Musculoskeletal: Yes: WNL Edema: No Neurological: Yes: Oriented Psychiatric: Yes: Oriented Labs: CBC, BMP 11/06/17 11:41 11/06/17 11:41 INR, PTT INR 1.37 (0.82-1.09) H 11/04/17 02:50 Problem List - Problems (1) Upper GI bleed Code(s): K92.2 - GASTROINTESTINAL HEMORRHAGE, UNSPECIFIED (2) Acute hyperkalemia Code(s): E87.5 - HYPERKALEMIA (3) ESRD (end stage renal disease) on dialysis Code(s): N18.6 - END STAGE RENAL DISEASE; Z99.2 - DEPENDENCE ON RENAL DIALYSIS Assessment/Plan Current Medications Generic Name Dose Route Start Last Admin Trade Name Freq PRN Reason Stop Dose Admin Insulin Aspart 1 vial 11/06/17 11:00 11/06/17 11:29 Novolog Vial Sliding Scale - SQ Not Given TIDAC [facility] Protocol Pantoprazole Sodium 40 mg 11/05/17 22:00 11/06/17 09:54 Protonix - PO 40 mg BID [facility] Administration Impression 1. ESRD 2. CAD 3. HTN 4. narcotic dependence 5. non compliance 6. pleural effusions 7. anemia 8. chest pain 9. DVT 10. GI Bleed - acute 11. neck pain 12. parotitis 13. hyperkalemia Plan - HD today - monitor cbc - s/p endoscopy - sean on epogen - will follow
--- NOTE | 2017-11-06 17:39 | PN ---
Physical Exam: SUBJECTIVE: Patient seen and examined at bedside. he is more awake but still lethargic , asking to go home , was agitated the whole nigth and Ativan was given 1mg IV by the night team.denies any pain any fever, any chills. OBJECTIVE: Vital Signs Period Temp Pulse Resp BP Sys/Hinds Pulse Ox Last 24 Hr 97.7 F-98.7 F 62-222 18-20 106-159/37-96 95-95 GENERAL: The patient is awake, alert, and fully oriented, in no acute distress. HEAD: Normal with no signs of trauma. EYES: sclera icteric, conjunctiva clear. ENT: dry mucous membranes.poor dentition. NECK: supple. LUNGS: B/L base crackles, no wheezes, no accessory muscle use. HEART: Regular rate and rhythm, S1, S2 ,2/6 SM at apex, no rub or gallop. ABDOMEN: Soft, nontender, nondistended, normoactive bowel sounds, no guarding, no rebound EXTREMITIES: 2+ pulses, warm, well-perfused, no edema. 3rd right finger amputation.very atrophy NEUROLOGICAL: Cranial nerves II through XII grossly intact. Normal speech, gait not observed. PSYCH: Normal mood, normal affect. SKIN: Warm, dry, no skin ulcer Laboratory Results - last 24 hr 11/06/17 11/06/17 11/06/17 11:27 11:41 11:41 WBC 7.3 RBC 2.83 L Hgb 8.5 L Hct 26.4 L MCV 93.2 MCH 30.0 MCHC 32.2 RDW 17.6 H Plt Count 107 L MPV 9.1 Sodium 143 Potassium 5.0 Chloride 102 Carbon Dioxide 29 Anion Gap 12 BUN 62 H D Creatinine 5.9 H D Creat Clearance w eGFR 9.58 POC Glucometer 87 Random Glucose 80 Calcium 8.4 L Phosphorus 5.2 H D Magnesium 2.4 Total Bilirubin 0.6 AST 32 D ALT 13 Alkaline Phosphatase 148 H Total Protein 6.4 Albumin 2.8 L Active Medications Generic Name Dose Route Start Last Admin Trade Name Freq PRN Reason Stop Dose Admin Insulin Aspart 1 vial 11/06/17 11:00 11/06/17 11:29 Novolog Vial Sliding Scale - SQ Not Given TIDAC [facility] Protocol Pantoprazole Sodium 40 mg 11/05/17 22:00 11/06/17 09:54 Protonix - PO 40 mg BID NGOC Administration CBC, BMP 11/06/17 11:41 11/06/17 11:41 Microbiology 11/04/17 11:25 Blood - Peripheral Venous Blood Culture - Preliminary NO GROWTH OBTAINED AFTER 48 HOURS, INCUBATION TO CONTINUE FOR 3 DAYS. 11/04/17Chest /Abdomen CT : reviwed 11/04/17 CXR : No acute process 11/04/17 LE vascular study : negative for DVT 11/04/17 : EKG : Oacing rhythm with QTC 531. 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, CAD s/p CABG and stents who presented to ER with generalized pain and developed upper GI bleed # Upper GI bleed ingaley 2/2 gastric ulcer , stable * Admited to ICU , transfer to tele * H/H 6.3 today 8.5.26.4 continue to monitor * S/P EGD , * Occult blood + * 2 large IV pores * S/P 2 PRBC transfused ,S/P 1 FFP given ,S/P 1 DDAVP * Transfuse as needed to keep Hgb >7 or if he has active bleeding * GI consulted * Endoscopy shows 3 antral ulcers with esophagitis ulcer and biopsy was taken for H.Pylori * Monitor H/H q * Protonix 40 mg bID * Type and screen * Coag study * No NSAIDS , NO AC , NO ASA * No Narcotics , * # ESRD , * On HD (,,)non compliant * Missed last dialysis on Thursday * Nephrology consulted * Had HD at bed side in ICU, another HD today * Monitor BMP * # Hyperkalemia , resolved * K 6.3 on admission , with no EKG changes , K 5 today * Dextrose, IV insuline 10 units and Gluconate ca * 2nd HD today * Repeat in AM #AMS 2/2 acute metabolic encephalopathy vs GI bleeding vs electrolytes imbalance , resolved * HD * PRBC tanasfusion as needed * Hyperkalemia treated medically and HD * 1 mg ativan given last night due to agitation #H/O Parotitis , * chronic enlargement but no signs on infection * monitor off Abx * # DM * non compliant * BGM TID * ISS # Anemia likely 2/2 ESRD vs low oral intake * H/H 8.5/26.4 * Epogen with HD 10.000 unit * Monitor # HTN , * continue his home meds coreg 12.5 mg po bid , and imdur 30 mg po daily * Continue to monitor * # H/O CHF , CAD S/P CABG * Daily weight * I&O * Manage volume with HD # Legs pain , improved * Doplex LE :negative for DVT * SCDS both legs , no chemoprophylaxis due to bleeding. # Malnutrition 2/2 low oral intake vs ESRD * high calorie diet * HD as needed # FEN * F: on no fluids * E: Monitor * N : Na/K controlled Liquid diet after EGD , advanced as tolerated # Proph * DVT : SCDS Both legs * GI: Protonix 40 mg IV BID * # Dispo : * Admit to ICU , transferred to tele * F/U H/H * No Narcotics , No NSAIDS Visit type - Emergency Visit Emergency Visit: Yes ED Registration Date: 11/04/17 Care time: The patient presented to the Emergency Department on the above date and was hospitalized for further evaluation of their emergent condition. - New Patient This patient is new to me today: No - Critical Care Critical Care patient: No - Discharge Referral Referred to [facility] Med P.C.: No
[2017-11-06] MEDS ORDERED: hydrALAZINE HCL 50 MG TABLET (FP) PO ONE (18:35)
--- NOTE | 2017-11-06 19:05 | PN ---
Teaching Attending Note Name of Resident: Lalo Campbell ATTENDING PHYSICIAN STATEMENT I saw and evaluated the patient. I reviewed the resident's note and discussed the case with the resident. I agree with the resident's findings and plan as documented. SUBJECTIVE:sen at 8:30 unable to obtain hx. pt received Ativan last night and currently confused OBJECTIVE: NAD, minimal response to questions no facial droop. no enlargement in parotid glands CV: RRR,2/6 SM at apex Abd: soft, NT, ND, Nl BS . EXt: no edema ASSESSMENT AND PLAN: 66 Y/o unfortunate man with h/o ESRD on HD (,,Thu), CHF, CABG, PPM, DM, Right 3rd digit amputation, CAD s/p CABG and stents who presented to ER with generalized pain and developed upper GI bleed 1- Upper GI bleed: s/p EGD with gastric ulcers. - stable Hb - transfuse to keep Hb> 7, or if active bleed. - po PPI 2- ESRD : - HD today - follow electrolytes. 3- AMS : encephalopathy likely due to Ativan received over night , if no recovery ,, will obtain CT of head 4- DM : start SSI 5- H/o CHF: volume management with HD 6- HTN: resume imdur and coreg DVT PX: SCDs PT eval
[2017-11-06] MEDS: CARVEDILOL 12.5 MG TABLET (FP) PO SCH (21:04)
[2017-11-07] MEDS: ACETAMINOPHEN 325 MG TABLET (FP) PO PRN ×3 (05:13→18:01)
[2017-11-07] MEDS: INSULIN SLIDING SCALE (NOVOLOG) 1 VIAL SQ SCH ×3 (07:02→17:58)
[2017-11-07 10:10] LABS: HEMATOCRIT 27.3 % (35.4-49); HEMOGLOBIN 8.8 GM/dL (11.7-16.9); MCH 30.3 pg (25.7-33.7); MCHC 32.2 g/dl (32.0-35.9); MEAN PLT VOLUME 8.5 fl (7.5-11.1); PLATELET COUNT 123 K/MM3 (134-434); RBC 2.91 M/mm3 (4.00-5.60); RDW 18.1 % (11.9-15.9); WHITE BLOOD COUNT 5.5 K/mm3 (4.0-10.0)
[2017-11-07] MEDS: ISOSORBIDE MONONITRATE 30 MG TAB.SR.24H (FP) PO SCH (10:15)
[2017-11-07] MEDS: PANTOPRAZOLE 40 MG TABLET (FP) PO SCH ×2 (10:15→22:55)
[2017-11-07] MEDS: CARVEDILOL 12.5 MG TABLET (FP) PO SCH ×3 (10:15→22:55)
[2017-11-07 10:41] LABS: ALBUMIN 2.9 g/dl (3.4-5.0); ANION GAP 11 (8-16); BILIRUBIN,TOTAL 0.7 mg/dL (0.2-1.0); BLOOD UREA NITROGEN 26 mg/dL (7-18); CALCIUM 8.7 mg/dL (8.5-10.1); CHLORIDE 103 mmol/L (98-107); CO2 30 mmol/L (21-32); CREATININE 3.6 mg/dL (0.7-1.3); GLUCOSE,RANDOM 91 mg/dL (74-106); PHOSPHOROUS 3.1 mg/dL (2.5-4.9); POTASSIUM 3.5 mmol/L (3.5-5.1); SGOT/AST 28 U/L (15-37); SGPT/ALT 13 U/L (12-78); SODIUM 144 mmol/L (136-145); TOT PROT 6.6 g/dl (6.4-8.2)
[2017-11-07 10:42] LABS: ALK PHOS 151 U/L (45-117)
--- NOTE | 2017-11-07 13:10 | PN ---
Progress Note (short form) - Note Progress Note: RENAL Pt is awake and alert c/o pain but is not specific about location appears comfortable however Last Vital Signs Temp Pulse Resp BP Pulse Ox 97.4 F L 77 20 129/71 100 11/07/17 05:00 11/07/17 05:00 11/06/17 22:00 11/07/17 05:00 11/06/17 21:00 lungs clear cvs s1s2 rr abd soft ext no edema has significant muscle atrophy CBC, BMP 11/07/17 09:55 11/07/17 09:55 Current Medications Generic Name Dose Route Start Last Admin Trade Name Freq PRN Reason Stop Dose Admin Acetaminophen 650 mg 11/07/17 05:03 11/07/17 06:57 Tylenol - PO 650 mg Q4H PRN Administration PAIN Carvedilol 12.5 mg 11/06/17 22:00 11/07/17 11:08 Coreg - PO Not Given BID [facility] Epoetin Devin 10,000 unit 11/07/17 00:41 Epogen - IVPUSH 11/07/17 00:42 ONCE ONE Insulin Aspart 1 vial 11/06/17 11:00 11/07/17 11:10 Novolog Vial Sliding Scale - SQ 4 units TIDAC NGOC Administration Protocol Isosorbide Mononitrate 30 mg 11/07/17 10:00 11/07/17 10:15 Imdur - PO Not Given DAILY [facility] Pantoprazole Sodium 40 mg 11/05/17 22:00 11/07/17 10:15 Protonix - PO Not Given BID [facility] Impression 1. ESRD 2. CAD 3. HTN 4. narcotic dependence 5. non compliance 6. pleural effusions 7. anemia 8. chest pain 9. DVT 10. GI Bleed - acute 11. neck pain 12. parotitis 13. hyperkalemia Plan continue current management epogen and venofer on hemodialysis would not give narcotics MV
--- NOTE | 2017-11-07 15:50 | PN ---
Physical Exam: SUBJECTIVE: Per nurse, pt has been confused, agitated, and screaming non-stop since yesterday. Patient stated he has pain everywhere. Unable to follow command or have meaningful conversation. OBJECTIVE: Vital Signs Period Temp Pulse Resp BP Sys/Hinds Pulse Ox Last 24 Hr 97.4 F-97.8 F 65-222 18-20 129-167/57-78 95-100 GENERAL: Confused, agitated, screaming/ HEAD: Normal with no signs of trauma. EYES: sclera icteric, conjunctiva clear. ENT: dry mucous membranes.poor dentition. NECK: supple. LUNGS: B/L base crackles, no wheezes, no accessory muscle use. HEART: Regular rate and rhythm, S1, S2 ,2/6 SM at apex, no rub or gallop. ABDOMEN: Soft, nontender, nondistended, normoactive bowel sounds, no guarding, no rebound EXTREMITIES: 2+ pulses, warm, well-perfused, no edema. 3rd right finger amputation.very atrophy NEUROLOGICAL: Cranial nerves II through XII grossly intact. Normal speech, gait not observed. PSYCH: Normal mood, normal affect. SKIN: Warm, dry, no skin ulcer Laboratory Results - last 24 hr 11/04/17 11/07/17 11/07/17 03:13 06:53 09:55 WBC 5.5 RBC 2.91 L Hgb 8.8 L Hct 27.3 L MCV 94.0 MCH 30.3 MCHC 32.2 RDW 18.1 H Plt Count 123 L MPV 8.5 Sodium Potassium Chloride Carbon Dioxide Anion Gap BUN Creatinine Creat Clearance w eGFR POC Glucometer 99 Random Glucose Calcium Phosphorus Magnesium Total Bilirubin AST ALT Alkaline Phosphatase Total Protein Albumin Blood Type O POSITIVE Antibody Screen Negative Crossmatch See Detail 11/07/17 11/07/17 09:55 11:06 WBC RBC Hgb Hct MCV MCH MCHC RDW Plt Count MPV Sodium 144 Potassium 3.5 D Chloride 103 Carbon Dioxide 30 Anion Gap 11 BUN 26 H D Creatinine 3.6 H D Creat Clearance w eGFR 16.95 POC Glucometer 264 Random Glucose 91 Calcium 8.7 Phosphorus 3.1 D Magnesium 2.0 Total Bilirubin 0.7 AST 28 ALT 13 Alkaline Phosphatase 151 H Total Protein 6.6 Albumin 2.9 L Blood Type Antibody Screen Crossmatch Active Medications Generic Name Dose Route Start Last Admin Trade Name Freq PRN Reason Stop Dose Admin Acetaminophen 650 mg 11/07/17 05:03 11/07/17 06:57 Tylenol - PO 650 mg Q4H PRN Administration PAIN Carvedilol 12.5 mg 11/06/17 22:00 11/07/17 11:08 Coreg - PO Not Given BID NGOC Epoetin Devin 10,000 unit 11/07/17 00:41 Epogen - IVPUSH 11/07/17 00:42 ONCE ONE Insulin Aspart 1 vial 11/06/17 11:00 11/07/17 11:10 Novolog Vial Sliding Scale - SQ 4 units TIDAC NGOC Administration Protocol Isosorbide Mononitrate 30 mg 11/07/17 10:00 11/07/17 10:15 Imdur - PO Not Given DAILY NGOC Pantoprazole Sodium 40 mg 11/05/17 22:00 11/07/17 10:15 Protonix - PO Not Given BID NGOC 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, CAD s/p CABG and stents who presented to ER with generalized pain and developed upper GI bleed # Acute AMS - Likely 2/2 benzo - Cont. to wait and monitor mental status - CT head when stable to r/o organic cause # UGI * Resolved * On PPI PO BID * s/p endoscopy * cont. to avoid NSAID * f/u biopsy result # ESRD s/p HD yesterday Monitor daily lytes DM - BGM and SSI HTN - Hold all BP after UGIB # FEN * F: on no fluids * E: Monitor * N : Na/K controlled Liquid diet after EGD , advanced as tolerated # Proph * DVT : SCDS Both legs * GI: Protonix 40 mg PO BID # Dispo : * Mental status still altered, will wait * Pending CT head when stable Visit type - Emergency Visit Emergency Visit: No - New Patient This patient is new to me today: No - Critical Care Critical Care patient: No
--- NOTE | 2017-11-07 16:28 | PN ---
Teaching Attending Note Name of Resident: Deandre Lopez ATTENDING PHYSICIAN STATEMENT I saw and evaluated the patient. I reviewed the resident's note and discussed the case with the resident. I agree with the resident's findings and plan as documented. SUBJECTIVE: agitated screaming all night . unable to obtain hx OBJECTIVE: NAD, awake , screaming, calmed down by holding his hand . no facial droop. CV: RRR, 2/6 SM at apex Abd: soft, NT, ND, Nl BS . EXt: no edema ASSESSMENT AND PLAN: 66 Y/o unfortunate man with h/o ESRD on HD (,,Thu), CHF, CABG, PPM, DM, Right 3rd digit amputation, CAD s/p CABG and stents who presented to ER with generalized pain and developed upper GI bleed 1- Upper GI bleed: s/p EGD with gastric ulcers. - stable Hb - transfuse to keep Hb < 7, or if active bleed. - po PPI 2- ESRD: - HD per renal - follow electrolytes. 3- AMS: encephalopathy likely due to benzos with prolonged acute delirium , if no recovery ,, will obtain CT of head 4- DM: SSI 5- H/o CHF: volume management with HD 6- HTN: imdur and coreg resumed , but not given this am DVT PX: SCDs PT eval
[2017-11-08] MEDS ORDERED: GLUCAGON 1 MG KIT ONE (06:27)
[2017-11-08] MEDS ORDERED: DEXTROSE 50%-WATER 25 GM/50 ML DISP.SYRIN ONE ×2 (06:32→06:34)
[2017-11-08] MEDS: INSULIN SLIDING SCALE (NOVOLOG) 1 VIAL SQ SCH (06:46)
--- NOTE | 2017-11-08 06:47 | RAPID ---
Physical Examination Vital Signs: Vital Signs Temperature 98 F 11/07/17 22:00 Pulse Rate 68 11/07/17 23:30 Respiratory Rate 20 11/07/17 23:30 Blood Pressure 162/60 11/07/17 23:30 O2 Sat by Pulse Oximetry (%) 98 11/07/17 21:00 Findings/Remarks: Rapid response was called around 630am because patient was unresponsive. Arrived at scene, found patient lying in bed with minimal movement, moans and breathes heavily. Nurse reported finger stick glc of 17 and patient has no IV access. IM glucagon was given immediately on R buttock, followed by creating IV access to R EJ. 2 amps of D50 then given after successfully obtained EJ line access. Repeat finger stick was 392 and patient regained consciousness and returned slowly to his baseline mental status. Constitutional: Yes: Other (unresponsive) Cardiovascular: Yes: Regular Rate and Rhythm, S1, S2. No: Murmur Respiratory: Yes: CTA Bilaterally Neurological: Yes: Lethargy, Unresponsive Labs: CBC, BMP 11/07/17 09:55 11/07/17 09:55 Rapid Response - Rapid Response Assessment: 67 yo M admitted for UGIB and ESRD on HD had FS glc of 17. Acute hypoglycemic episode - IM glucogan + D50 x 2 amps given - FS Q2H * if glc < 80, start D5 gtt - Neuro checks Q2H
[2017-11-08] MEDS: ISOSORBIDE MONONITRATE 30 MG TAB.SR.24H (FP) PO SCH (09:24)
[2017-11-08] MEDS: ACETAMINOPHEN 325 MG TABLET (FP) PO PRN ×2 (09:24→19:58)
[2017-11-08] MEDS: PANTOPRAZOLE 40 MG TABLET (FP) PO SCH ×2 (09:24→21:27)
[2017-11-08] MEDS: CARVEDILOL 12.5 MG TABLET (FP) PO SCH ×2 (09:24→21:26)
[2017-11-08] MEDS ORDERED: DEXTROSE 50%-WATER - 25 GM/50 ML VIAL IVPUSH ONE (11:30)
[2017-11-08] MEDS ORDERED: DEXTROSE 50%-WATER - 25 GM/50 ML VIAL ONE (11:46)
[2017-11-08 13:03] LABS: HEMATOCRIT 27.6 % (35.4-49); HEMOGLOBIN 8.7 GM/dL (11.7-16.9); MCH 29.8 pg (25.7-33.7); MCHC 31.4 g/dl (32.0-35.9); MEAN CELL VOLUME 94.9 fl (80-96); MEAN PLT VOLUME 8.6 fl (7.5-11.1); PLATELET COUNT 94 K/MM3 (134-434); RBC 2.91 M/mm3 (4.00-5.60); WHITE BLOOD COUNT 6.9 K/mm3 (4.0-10.0)
[2017-11-08 13:24] LABS: ANION GAP 6 (8-16); BLOOD UREA NITROGEN 35 mg/dL (7-18); CALCIUM 7.6 mg/dL (8.5-10.1); CHLORIDE 101 mmol/L (98-107); CO2 31 mmol/L (21-32); CREATININE 4.6 mg/dL (0.7-1.3); GLUCOSE,RANDOM 136 mg/dL (74-106); MAGNESIUM 1.8 mg/dL (1.8-2.4); POTASSIUM 3.8 mmol/L (3.5-5.1); SODIUM 138 mmol/L (136-145)
--- NOTE | 2017-11-08 13:24 | PN ---
Progress Note (short form) - Note Progress Note: RENAL sleeping comfortable was hypoglycemic today Last Vital Signs Temp Pulse Resp BP Pulse Ox 98 F 61 20 145/84 98 11/07/17 22:00 11/08/17 06:30 11/08/17 06:30 11/08/17 06:30 11/07/17 21:00 lungs clear anteriorly cvs s1s2 rr abd soft ext no edema has significant muscle atroph Current Medications Generic Name Dose Route Start Last Admin Trade Name Mary PRN Reason Stop Dose Admin Acetaminophen 650 mg 11/07/17 05:03 11/08/17 09:24 Tylenol - PO 650 mg Q4H PRN Administration PAIN Carvedilol 12.5 mg 11/06/17 22:00 11/08/17 09:24 Coreg - PO 12.5 mg BID NGOC Administration Epoetin Devin 10,000 unit 11/07/17 00:41 Epogen - IVPUSH 11/07/17 00:42 ONCE ONE Isosorbide Mononitrate 30 mg 11/07/17 10:00 11/08/17 09:24 Imdur - PO 30 mg DAILY NGOC Administration Pantoprazole Sodium 40 mg 11/05/17 22:00 11/08/17 09:24 Protonix - PO 40 mg BID NGOC Administration Impression 1. ESRD 2. CAD 3. HTN 4. narcotic dependence 5. non compliance 6. pleural effusions 7. anemia 8. chest pain 9. DVT 10. GI Bleed - acute 11. neck pain 12. parotitis 13. hyperkalemia 14. s/p hypoglycemia today Plan continue current management epogen and venofer on hemodialysis will dialyze again tomorrow repeat labs in am, todays are pending MV
[2017-11-08] MEDS ORDERED: EPOETIN ALFA 2,000 UNIT/1 ML VIAL SQ ONE (13:27)
--- NOTE | 2017-11-08 17:00 | PN ---
Progress Note (short form) - Note Progress Note: Subjective: not able to obtain hx . was hypoglycemic last night Objective: Vital Signs: Last Vital Signs Temp Pulse Resp BP Pulse Ox 96.6 F L 61 20 144/79 100 11/08/17 09:00 11/08/17 09:00 11/08/17 09:00 11/08/17 09:00 11/08/17 09:00 Laboratory Results - last 24 hr 11/08/17 11/08/17 11/08/17 08:41 11:23 12:45 WBC 6.9 RBC 2.91 L Hgb 8.7 L Hct 27.6 L MCV 94.9 MCH 29.8 MCHC 31.4 L RDW 19.0 H Plt Count 94 L D MPV 8.6 Sodium Potassium Chloride Carbon Dioxide Anion Gap BUN Creatinine POC Glucometer 141 64 Random Glucose Calcium Magnesium Ammonia 11/08/17 11/08/17 11/08/17 12:45 12:45 13:28 WBC RBC Hgb Hct MCV MCH MCHC RDW Plt Count MPV Sodium 138 Potassium 3.8 Chloride 101 Carbon Dioxide 31 Anion Gap 6 L BUN 35 H D Creatinine 4.6 H D POC Glucometer 116 Random Glucose 136 H D Calcium 7.6 L Magnesium 1.8 Ammonia 47.81 H 11/08/17 16:06 WBC RBC Hgb Hct MCV MCH MCHC RDW Plt Count MPV Sodium Potassium Chloride Carbon Dioxide Anion Gap BUN Creatinine POC Glucometer 87 Random Glucose Calcium Magnesium Ammonia Physical Exam: NAD, awake, screaming, confused no facial droop. CV: RRR, 2/6 SM at apex Abd: soft, NT, ND, Nl BS . EXt: no edema ASSESSMENT AND PLAN: 66 Y/o unfortunate man with h/o ESRD on HD (,,Thu), CHF, CABG, PPM, DM, Right 3rd digit amputation, CAD s/p CABG and stents who presented to ER with generalized pain and developed upper GI bleed 1- Upper GI bleed: s/p EGD with gastric ulcers. - stable Hb - transfuse to keep Hb >7 - po PPI 2- ESRD: - HD per renal - follow electrolytes. 3- AMS: encephalopathy likely due to benzos with prolonged acute delirium , also from hypoglycemia 4- hypoglycemia : ? poor po intake vs insulinoma - gave D50 again this am - place on glucose tab - check C -peptide 5- H/o CHF: volume management with HD 6- HTN: imdur and coreg DVT PX: SCDs PT eval Visit type - Emergency Visit Emergency Visit: Yes ED Registration Date: 11/04/17 Care time: The patient presented to the Emergency Department on the above date and was hospitalized for further evaluation of their emergent condition. - New Patient This patient is new to me today: No - Critical Care Critical Care patient: No
[2017-11-08] MEDS: DEXTROSE 4 GM TAB.CHEW PO SCH ×2 (18:32→21:26)
[2017-11-08] MEDS ORDERED: PT OWN MED DRAWER 7, Y5N ONE (21:14)
[2017-11-09] MEDS: ACETAMINOPHEN 325 MG TABLET (FP) PO PRN ×2 (00:54→06:02)
--- NOTE | 2017-11-09 05:53 | PN ---
Physical Exam: SUBJECTIVE: Patient seen and examined at bedside. AAOx2 person and place, complain of pain and screaming all night . OBJECTIVE: Vital Signs Period Temp Pulse Resp BP Sys/Hinds Pulse Ox Last 24 Hr 96.6 F-98.4 F 60-66 20-20 92-145/40-84 100-100 GENERAL: The patient is awake, alert, in mild distress. HEAD: Normal with no signs of trauma. EYES: sclera anicteric, conjunctiva clear. ENT: dry mucous membranes. NECK: supple. LUNGS: Breath sounds equal, clear to auscultation bilaterally, no wheezes, no crackles, no accessory muscle use. HEART: Regular rate and rhythm, S1, S2 , 2/6 systolic murmur at the apex ,no rubs or gallop. ABDOMEN: Soft, nontender, nondistended, normoactive bowel sounds, no guarding, no rebound, EXTREMITIES: 2+ pulses, warm, well-perfused, no edema. NEUROLOGICAL: no focal deficit. Normal speech, gait not observed. PSYCH: Normal mood, normal affect. SKIN: Warm, dry, Laboratory Results - last 24 hr 11/08/17 11/08/17 11/08/17 08:41 11:23 12:45 WBC 6.9 RBC 2.91 L Hgb 8.7 L Hct 27.6 L MCV 94.9 MCH 29.8 MCHC 31.4 L RDW 19.0 H Plt Count 94 L D MPV 8.6 Sodium Potassium Chloride Carbon Dioxide Anion Gap BUN Creatinine POC Glucometer 141 64 Random Glucose Calcium Magnesium Ammonia 11/08/17 11/08/17 11/08/17 12:45 12:45 13:28 WBC RBC Hgb Hct MCV MCH MCHC RDW Plt Count MPV Sodium 138 Potassium 3.8 Chloride 101 Carbon Dioxide 31 Anion Gap 6 L BUN 35 H D Creatinine 4.6 H D POC Glucometer 116 Random Glucose 136 H D Calcium 7.6 L Magnesium 1.8 Ammonia 47.81 H 11/08/17 11/08/17 11/08/17 16:06 17:41 21:22 WBC RBC Hgb Hct MCV MCH MCHC RDW Plt Count MPV Sodium Potassium Chloride Carbon Dioxide Anion Gap BUN Creatinine POC Glucometer 87 87 101 Random Glucose Calcium Magnesium Ammonia 11/09/17 11/09/17 00:28 03:08 WBC RBC Hgb Hct MCV MCH MCHC RDW Plt Count MPV Sodium Potassium Chloride Carbon Dioxide Anion Gap BUN Creatinine POC Glucometer 94 95 Random Glucose Calcium Magnesium Ammonia Active Medications Generic Name Dose Route Start Last Admin Trade Name Mary PRN Reason Stop Dose Admin Acetaminophen 650 mg 11/07/17 05:03 11/09/17 00:54 Tylenol - PO 650 mg Q4H PRN Administration PAIN Carvedilol 12.5 mg 11/06/17 22:00 11/08/17 21:26 Coreg - PO 12.5 mg BID NGOC Administration Dextrose 4 gm 11/08/17 16:57 11/08/17 21:26 Glucose Tablet - PO 4 gm TID NGOC Administration Epoetin Devin 10,000 unit 11/07/17 00:41 Epogen - IVPUSH 11/07/17 00:42 ONCE ONE Isosorbide Mononitrate 30 mg 11/07/17 10:00 11/08/17 09:24 Imdur - PO 30 mg DAILY [facility] Administration Pantoprazole Sodium 40 mg 11/05/17 22:00 11/08/17 21:27 Protonix - PO 40 mg BID NGOC Administration CBC, BMP 11/09/17 08:20 11/09/17 08:20 Microbiology 11/04/17 11:25 Blood Culture - Final Blood - Peripheral Venous NO GROWTH AFTER 5 DAYS INCUBATION 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, CAD s/p CABG and stents who presented to ER with generalized pain and developed upper GI bleed # Acute AMS , Likely 2/2 benzo vs Hypoglycemia * Cont. to wait and monitor mental status * consider CT head if no improvement # Upper GI bleeding ,Resolved * On PPI PO BID * s/p EGD shows 3 gastric ulcer with esophageal ulcer * cont. to avoid NSAID * f/u biopsy result # ESRD * s/p HD today with no complication * Monitor daily lytes #DM * BGM and SSI * Sugar tab 4 mg po TID if sugar below 90 , hold if over 120 * has episode of hypoglycemia due to low intake can not r/o insulinoma f/u as out patient with peptid C #HTN * continue home meds Coreg 12.5 po BID and Imdur 30 mg po daily # FEN * F: on no fluids * E: Monitor * N : Na/K controlled Liquid diet after EGD , advanced as tolerated # Proph * DVT : SCDS Both legs * GI: Protonix 40 mg PO BID # Dispo : * possible Dc tomorrow to home as pt refused rehab * Visit type - Emergency Visit Emergency Visit: Yes ED Registration Date: 11/04/17 Care time: The patient presented to the Emergency Department on the above date and was hospitalized for further evaluation of their emergent condition. - New Patient This patient is new to me today: No - Critical Care Critical Care patient: No - Discharge Referral Referred to [facility] Med P.C.: No
[2017-11-09] MEDS: DEXTROSE 4 GM TAB.CHEW PO SCH ×3 (06:02→21:25)
[2017-11-09 09:00] LABS: HEMATOCRIT 25.6 % (35.4-49); MCH 29.7 pg (25.7-33.7); MCHC 31.3 g/dl (32.0-35.9); MEAN PLT VOLUME 9.4 fl (7.5-11.1); PLATELET COUNT 101 K/MM3 (134-434); RDW 19.4 % (11.9-15.9); WHITE BLOOD COUNT 4.4 K/mm3 (4.0-10.0)
[2017-11-09] MEDS: PANTOPRAZOLE 40 MG TABLET (FP) PO SCH ×2 (09:13→21:25)
[2017-11-09 09:25] LABS: ANION GAP 10 (8-16); BLOOD UREA NITROGEN 41 mg/dL (7-18); CALCIUM 7.4 mg/dL (8.5-10.1); CHLORIDE 101 mmol/L (98-107); CO2 30 mmol/L (21-32); CREATININE 5.6 mg/dL (0.7-1.3); GLUCOSE,RANDOM 111 mg/dL (74-106); POTASSIUM 4.1 mmol/L (3.5-5.1); SODIUM 141 mmol/L (136-145)
[2017-11-09] MEDS ORDERED: EPOETIN ALFA 10,000 UNIT/1 ML VIAL IVPUSH ONE (09:45)
[2017-11-09] MEDS ORDERED: PT OWN MED DRAWER 7, Y5N ONE ×2 (12:56→21:06)
[2017-11-09] MEDS: CARVEDILOL 12.5 MG TABLET (FP) PO SCH ×2 (12:58→21:25)
[2017-11-09] MEDS: ISOSORBIDE MONONITRATE 30 MG TAB.SR.24H (FP) PO SCH (12:58)
--- NOTE | 2017-11-09 13:42 | PATH ---
Surgical Pathology Report Patient Name: CLEMENTINA NIEVES [facility]. Rec. #: [id number] /Age/Gender: 1950 (Age: 67) / M Account: [id number] Location: [address] [place] [address] Taken: 11/05/2017 Received: 11/06/2017 Reported: 11/09/2017 Physicians: Jeffery Ferguson M.D. Specimen(s) Received A: BX ANTRUM AND BODY B: BX GE JUNCTION Clinical History Preoperative diagnosis: GI bleed Postoperative diagnosis: Antral ulcer Final Diagnosis A. STOMACH, ANTRUM AND BODY, BIOPSY: GASTRIC ANTRUM MUCOSA WITH MILD REACTIVE GASTROPATHY, AND GASTRIC FUNDIC MUCOSA WITH HYPERPLASTIC CHANGES. IMMUNOSTAIN FOR H. PYLORI IS NEGATIVE. B. GE JUNCTION, BIOPSY: GASTRIC TYPE MUCOSA WITH ULCERATION. NO CARCINOMA IDENTIFIED. Electronically Signed Fortino Lyons M.D. Gross Description A. Received in formalin, labeled "biopsy antrum and body" are 4 pearce, irregular portions of soft tissue ranging from 0.1-0.2 cm. in greatest dimension. The specimens are submitted in toto in one cassette. B. Received in formalin, labeled "biopsy GE junction" is a pearce, irregular portion of soft tissue measuring 0.4 cm. in greatest dimension. The specimen is submitted in toto in one cassette. 11/06/2017 saudi11/06/2017
--- NOTE | 2017-11-09 14:34 | PN ---
Progress Note, Physician History of Present Illness: Pt seen and examined at bedside. He is awake and alert. He tolerated HD today. - Current Medication List Current Medications: Active Medications Acetaminophen (Tylenol -) 650 mg PO Q4H PRN PRN Reason: PAIN Last Admin: 11/09/17 06:02 Dose: 650 mg Carvedilol (Coreg -) 12.5 mg PO BID [facility] Last Admin: 11/09/17 12:58 Dose: 12.5 mg Dextrose (Glucose Tablet -) 4 gm PO TID [facility] Last Admin: 11/09/17 12:59 Dose: 4 gm Isosorbide Mononitrate (Imdur -) 30 mg PO DAILY [facility] Last Admin: 11/09/17 12:58 Dose: 30 mg Pantoprazole Sodium (Protonix -) 40 mg PO BID [facility] Last Admin: 11/09/17 09:13 Dose: Not Given - Objective Vital Signs: Vital Signs Temperature 98.0 F 11/09/17 08:05 Pulse Rate 61 11/09/17 11:50 Respiratory Rate 18 11/09/17 11:50 Blood Pressure 110/49 11/09/17 11:50 O2 Sat by Pulse Oximetry (%) 100 11/08/17 21:00 Constitutional: Yes: Calm Eyes: Yes: Conjunctiva Clear HENT: Yes: Atraumatic Neck: Yes: Supple Cardiovascular: Yes: S1, S2 Respiratory: Yes: CTA Bilaterally Gastrointestinal: Yes: Soft Genitourinary: Yes: WNL Musculoskeletal: Yes: WNL Edema: No Neurological: Yes: Oriented Psychiatric: Yes: Oriented Labs: CBC, BMP 11/09/17 08:20 11/09/17 08:20 INR, PTT INR 1.37 (0.82-1.09) H 11/04/17 02:50 Problem List - Problems (1) Upper GI bleed Code(s): K92.2 - GASTROINTESTINAL HEMORRHAGE, UNSPECIFIED (2) Acute hyperkalemia Code(s): E87.5 - HYPERKALEMIA (3) ESRD (end stage renal disease) on dialysis Code(s): N18.6 - END STAGE RENAL DISEASE; Z99.2 - DEPENDENCE ON RENAL DIALYSIS Assessment/Plan Current Medications Generic Name Dose Route Start Last Admin Trade Name Freq PRN Reason Stop Dose Admin Acetaminophen 650 mg 11/07/17 05:03 11/09/17 06:02 Tylenol - PO 650 mg Q4H PRN Administration PAIN Carvedilol 12.5 mg 11/06/17 22:00 11/09/17 12:58 Coreg - PO 12.5 mg BID NGOC Administration Dextrose 4 gm 11/08/17 16:57 11/09/17 12:59 Glucose Tablet - PO 4 gm TID NG[facility] Administration Isosorbide Mononitrate 30 mg 11/07/17 10:00 11/09/17 12:58 Imdur - PO 30 mg DAILY NG[facility] Administration Pantoprazole Sodium 40 mg 11/05/17 22:00 11/09/17 09:13 Protonix - PO Not Given BID NG[facility] Impression 1. ESRD 2. CAD 3. HTN 4. narcotic dependence 5. non compliance 6. pleural effusions 7. anemia 8. chest pain 9. DVT 10. GI Bleed - acute 11. neck pain 12. parotitis 13. hyperkalemia Plan - pt tolerated HD - monitor blood sugar - monitor hg - aranesp on epogen - will follow
--- NOTE | 2017-11-09 16:28 | PN ---
Teaching Attending Note Name of Resident: Lalo Campbell ATTENDING PHYSICIAN STATEMENT I saw and evaluated the patient. I reviewed the resident's note and discussed the case with the resident. I agree with the resident's findings and plan as documented. SUBJECTIVE: No fever or chills, has no pain, tarry stool was seen by RN OBJECTIVE: NAD, awake, alert knows his age and location , calm and cooperative no facial droop. CV: RRR, 2/6 SM at apex Abd: soft, NT, ND, Nl BS . EXt: no edema ASSESSMENT AND PLAN: 66 Y/o unfortunate man with h/o ESRD on HD (,,Thu), CHF, CABG, PPM, DM, Right 3rd digit amputation, CAD s/p CABG and stents who presented to ER with generalized pain and developed upper GI bleed 1- Upper GI bleed: s/p EGD with gastric ulcers. - stable Hb - po PPI - tarry stool this am per RN, monitor HB 2- ESRD: - HD today - follow electrolytes. 3- AMS: encephalopathy likely due to benzos and hypoglycemia . resolved , back to base line 4- Hypoglycemia : ? poor po intake vs insulinoma - COnt glucose tab - C -peptide need to be ordered as out pt 5- H/o CHF: volume management with HD 6- HTN: imdur and coreg DVT PX: SCDs PT eval . pt refused rehab placement
[2017-11-10 05:54] VITALS: PULSE 62
[2017-11-10] MEDS: DEXTROSE 4 GM TAB.CHEW PO SCH ×2 (06:28→13:25)
[2017-11-10] MEDS ORDERED: PT OWN MED DRAWER 7, Y5N ONE ×2 (06:58→13:21)
[2017-11-10 08:27] LABS: CHLORIDE 104 mmol/L (98-107); POTASSIUM 3.6 mmol/L (3.5-5.1); SODIUM 142 mmol/L (136-145)
[2017-11-10 08:38] LABS: ALBUMIN 2.8 g/dl (3.4-5.0); ALK PHOS 163 U/L (45-117); ANION GAP 8 (8-16); BILIRUBIN,TOTAL 0.7 mg/dL (0.2-1.0); BLOOD UREA NITROGEN 16 mg/dL (7-18); CALCIUM 7.2 mg/dL (8.5-10.1); CO2 30 mmol/L (21-32); CREATININE 3.3 mg/dL (0.7-1.3); GLUCOSE,RANDOM 90 mg/dL (74-106); SGOT/AST 27 U/L (15-37); SGPT/ALT 12 U/L (12-78); TOT PROT 6.1 g/dl (6.4-8.2)
[2017-11-10 09:00] VITALS: BP 135/65; TEMP 98.1
[2017-11-10 09:00] LABS: HEMATOCRIT 29.3 % (35.4-49); MCH 30.1 pg (25.7-33.7); MCHC 30.9 g/dl (32.0-35.9); MEAN CELL VOLUME 97.4 fl (80-96); PLATELET COUNT 102 K/MM3 (134-434); RDW 20.6 % (11.9-15.9); WHITE BLOOD COUNT 3.5 K/mm3 (4.0-10.0)
[2017-11-10] MEDS: CARVEDILOL 12.5 MG TABLET (FP) PO SCH (09:00)
[2017-11-10] MEDS: ISOSORBIDE MONONITRATE 30 MG TAB.SR.24H (FP) PO SCH (09:00)
[2017-11-10] MEDS: PANTOPRAZOLE 40 MG TABLET (FP) PO SCH (09:00)
[2017-11-10 09:18] LABS: BASO % 1.3 % (0-2.0); EOS % 3.6 % (0-4.5); LYMPH % 13.8 % (8-40); MONO % 17.8 % (3.8-10.2); NEUT % 63.5 % (42.8-82.8)
[2017-11-10 12:56] LABS: ANISOCYTOSIS 2+; MACROCYTOSIS 2+; OVALOCYTE 1+; PLATELET ESTIMATE DECREASED; TARGET CELLS 2+
--- NOTE | 2017-11-10 12:59 | DS ---
Physical Exam: SUBJECTIVE: Patient seen and examined at bedside. doing well , no acute events over night. denies any fever, chills, N/V/D/C. denies any chest pain or abdominal pain , pleasant and asking to go home. OBJECTIVE: Vital Signs Period Temp Pulse Resp BP Sys/Hinds Pulse Ox Last 24 Hr 97.6 F-99.3 F 62-96 20-20 95-135/42-76 100 PHYSICAL EXAM GENERAL: The patient is awake, alert, in mild distress. HEAD: Normal with no signs of trauma. EYES: sclera anicteric, conjunctiva clear. ENT: dry mucous membranes. NECK: supple. LUNGS: Breath sounds equal, clear to auscultation bilaterally, no wheezes, no crackles, no accessory muscle use. HEART: Regular rate and rhythm, S1, S2 , 2/6 systolic murmur at the apex ,no rubs or gallop. ABDOMEN: Soft, nontender, nondistended, normoactive bowel sounds, no guarding, no rebound, EXTREMITIES: 2+ pulses, warm, well-perfused, no edema. NEUROLOGICAL: no focal deficit. Normal speech, gait not observed. PSYCH: Normal mood, normal affect. SKIN: Warm, dry, LABS Laboratory Results - last 24 hr 11/09/17 11/09/17 11/09/17 12:52 17:15 20:58 WBC RBC Hgb Hct MCV MCH MCHC RDW Plt Count MPV Neutrophils % Neutrophils % (Manual) Band Neutrophils % Lymphocytes % Lymphocytes % (Manual) Monocytes % Monocytes % (Manual) Eosinophils % Eosinophils % (Manual) Basophils % Basophils % (Manual) Myelocytes % (Man) Promyelocytes % (Man) Nucleated RBC % Metamyelocytes Platelet Estimate Polychromasia Poikilocytosis Anisocytosis Macrocytosis Target Cells Ovalocytes Sodium Potassium Chloride Carbon Dioxide Anion Gap BUN Creatinine Creat Clearance w eGFR POC Glucometer 165 197 180 Random Glucose Calcium Total Bilirubin AST ALT Alkaline Phosphatase Total Protein Albumin 11/10/17 11/10/17 11/10/17 03:40 06:00 06:00 WBC 3.5 L RBC 3.00 L Hgb 9.0 L D Hct 29.3 L MCV 97.4 H MCH 30.1 MCHC 30.9 L RDW 20.6 H Plt Count 102 L MPV 10.0 Neutrophils % 63.5 Neutrophils % (Manual) 69.5 Band Neutrophils % 0.0 Lymphocytes % 13.8 D Lymphocytes % (Manual) 7.4 L D Monocytes % 17.8 H Monocytes % (Manual) 16 H* D Eosinophils % 3.6 Eosinophils % (Manual) 4.2 Basophils % 1.3 Basophils % (Manual) 3.1 H Myelocytes % (Man) 0 Promyelocytes % (Man) 0 Nucleated RBC % 4 H Metamyelocytes 0 Platelet Estimate Decreased Polychromasia 1+ Poikilocytosis 1+ Anisocytosis 2+ Macrocytosis 2+ Target Cells 2+ Ovalocytes 1+ Sodium 142 Potassium 3.6 Chloride 104 Carbon Dioxide 30 Anion Gap 8 BUN 16 D Creatinine 3.3 H D Creat Clearance w eGFR 18.74 POC Glucometer 124 Random Glucose 90 Calcium 7.2 L Total Bilirubin 0.7 AST 27 ALT 12 Alkaline Phosphatase 163 H Total Protein 6.1 L Albumin 2.8 L 11/10/17 11/10/17 06:26 09:02 WBC RBC Hgb Hct MCV MCH MCHC RDW Plt Count MPV Neutrophils % Neutrophils % (Manual) Band Neutrophils % Lymphocytes % Lymphocytes % (Manual) Monocytes % Monocytes % (Manual) Eosinophils % Eosinophils % (Manual) Basophils % Basophils % (Manual) Myelocytes % (Man) Promyelocytes % (Man) Nucleated RBC % Metamyelocytes Platelet Estimate Polychromasia Poikilocytosis Anisocytosis Macrocytosis Target Cells Ovalocytes Sodium Potassium Chloride Carbon Dioxide Anion Gap BUN Creatinine Creat Clearance w eGFR POC Glucometer 92 99 Random Glucose Calcium Total Bilirubin AST ALT Alkaline Phosphatase Total Protein Albumin Current Medications Generic Name Dose Route Start Last Admin Trade Name Freq PRN Reason Stop Dose Admin Acetaminophen 650 mg 11/07/17 05:03 11/09/17 06:02 Tylenol - PO 650 mg Q4H PRN Administration PAIN Carvedilol 12.5 mg 11/06/17 22:00 11/10/17 09:00 Coreg - PO 12.5 mg BID NGOC Administration Dextrose 4 gm 11/08/17 16:57 11/10/17 06:28 Glucose Tablet - PO 4 gm TID NGOC Administration Epoetin Devin 10,000 unit 11/11/17 10:16 Procrit - IVPUSH 11/11/17 10:17 ONCE ONE Isosorbide Mononitrate 30 mg 11/07/17 10:00 11/10/17 09:00 Imdur - PO 30 mg DAILY [facility] Administration Pantoprazole Sodium 40 mg 11/05/17 22:00 11/10/17 09:00 Protonix - PO 40 mg BID NG[facility] Administration CBC, BMP 11/10/17 06:00 11/10/17 06:00 HOSPITAL COURSE: Date of Admission:11/04/17 Date of Discharge: 11/10/17 Mr. Sanchez is a 66 Y/o unfortunate man with h/o ESRD on HD (,,Thu), CHF, CABG, PPM, DM, Right 3rd digit amputation, CAD s/p CABG and stents who presented to ER with generalized pain and developed upper GI bleed and Acute AMS. for AMS Likely 2/2 benzo vs Hypoglycemia , improved with monitor sugar and hemodialysis and opioid abstinence.for Upper GI bleeding ,Resolved, S/P EGD , was found to have 3 gastric ulcer and esophagitis ulcer , treat ed with protonix drip in ICU and 2 units of PRBCS transfusion,after H/H was stable pt was transferred to telemetry unit and switch to protonix 40 mg po BID .educated about abstinence from NSAIDS , Aspirin and ibuprofen, and opioids.he will follow up as out patient with Dr.Kogan DINERO for biopsy result from gastric ulcer. pt has ESRD on HD , he missed one before admission, recieve HD x 3 during hospitalyzation without complication and his elecrtolytes was stabilized inculding hyperkalemia and will continue HD as out patient.For DM pt presented with hypoglycemia he was given d5w 1/2 ns and added sugar tab 4 mg BID to his meds and ISS , he will continue to use the sugar tab as out patient if sugar drop below 90 and will stop using them if his sugar over 120 . this information was explained in details to the patient and he reports understanding and repeat what explained to him.his episode of hypoglycemia due to low intake can not r/o insulinoma f/u as out patient with peptid C, with photographer aerial .. in term of HTN continue home meds Coreg 12.5 po BID and Imdur 30 mg po daily and DC hydrazine. for DVT proph SCDS Both legs was uded.and for GI proph Protonix 40 mg PO BID and will be send home on protonix 40 mg BID. pt will be discharged home as he refused rehab.Pt is hemodynamically stable at day of discharged. Minutes to complete discharge: 50 Discharge Summary Reason For Visit: END STAGE RENAL FAILURE UPPER GI BLEED Current Active Problems Acute hyperkalemia (Chronic) Chronic pain disorder (Chronic) ESRD (end stage renal disease) on dialysis (Chronic) Gastric ulcer (Chronic) Condition: Stable - Instructions Diet, Activity, Other Instructions: you were admitted to the hospital for upper Gastroenterology bleeding , you were treated with blood transfusion and intravenous fluids. You will be send home , you will not be send to rehab facility per your request. Stop taking hydralazine Please abstinence from using any opioids medicine Please abstinence from using NSAIDs, Aspirin, Ibuprofen or any medicine can cause you bleeding from the ulcer on your stomach Please take your medicine as prescribed You will be given Sugar tab two times a day to use if you sugar drop below 90 Please stop using the sugar tablet when blood sugar above 120 Please monitor you blood sugar three times a day before each meal Please follow up with your primary care physician within one week , to repeat blood count Please follow up with Dr Marty masters within one week (chemist food ) Please follow up with your manager respiratory care , and follow up with your dialysis schedule , please avoid missing any dialysis \ PLease follow up with your photographer aerial (referral is given) for insulinoma. Please if you develop fever, chills,or you noticed blood in the stool or your sugar drop or develop lightheadedness call 911 or come back to ER [facility]. Referrals: Jeffery Ferguson MD [Staff Physician] - [address] MD [Staff Physician] - 2 Weeks Disposition: HOME - Home Medications Comprehensive Discharge Medication List: Ambulatory Orders Gabapentin [Neurontin] 100 mg PO DAILY #30 capsule 04/08/17 Oxycodone HCl 5 mg PO BID PRN #4 tablet MDD 2 tabs 10/29/17 Atorvastatin Ca [Lipitor] 20 mg PO HS #30 tablet 11/10/17 Carvedilol [Coreg -] 12.5 mg PO BID #60 tablet 11/10/17 Isosorbide Mononitrate [Imdur -] 30 mg PO DAILY #30 tab.sr.24h 11/10/17 Pantoprazole Sodium 40 mg PO DAILY #30 tablet. 11/10/17 Sevelamer Carbonate [Renvela -] 800 mg PO TIDCM #30 tab 01/30/18 Tamsulosin HCl [Flomax -] 0.4 mg PO DAILY@0830 #30 capsule 11/10/17 This patient is new to me today: No Emergency Visit: Yes ED Registration Date: 11/04/17 Care time: The patient presented to the Emergency Department on the above date and was hospitalized for further evaluation of their emergent condition. Critical Care patient: No - Discharge Referral Referred to [facility] Med P.C.: No
--- NOTE | 2017-11-10 18:38 | PN ---
Teaching Attending Note Name of Resident: Lalo Campbell ATTENDING PHYSICIAN STATEMENT I saw and evaluated the patient. I reviewed the resident's note and discussed the case with the resident. I agree with the resident's findings and plan as documented. SUBJECTIVE: No fever or chills. No abd pain, no diarrhea OBJECTIVE: NAD, awake, alert knows his age and location , calm and cooperative no facial droop. CV: RRR, 2/6 SM at apex Abd: soft, NT, ND, Nl BS . EXt: no edema No stool in diaper ASSESSMENT AND PLAN: 66 Y/o unfortunate man with h/o ESRD on HD (,,Thu), CHF, CABG, PPM, DM, Right 3rd digit amputation, CAD s/p CABG and stents who presented to ER with generalized pain and developed upper GI bleed 1- Upper GI bleed: s/p EGD with gastric ulcers. - stable Hb - po PPI 2- ESRD: - HD tomorrow as outpt 3- AMS: encephalopathy likely due to benzos and hypoglycemia . resolved , back to base line 4- Hypoglycemia : ? poor po intake vs insulinoma - COnt glucose tab BID after dc - C -peptide need to be ordered as out pt 5- H/o CHF: volume management with HD 6- HTN: imdur and coreg Dc home instructed to co mply with f/u with PCP and HD .
[2017-11-11] MEDS ORDERED: EPOETIN ALFA 10,000 UNIT/1 ML VIAL IVPUSH ONE (10:16)
== END 2017-11-10 14:06 | disposition home or self-care (01) | DRG 377 ==
LOC: JER 22:09 → JERBED 11-04 04:34 → UNDOADMIN 11-04 05:56 → JERBED 11-04 05:56 → JICU 11-04 13:58 → J4S 11-05 22:19 → J6S 11-07 00:20
PROVIDERS: ADMIT Internal Medicine; ATTEND Internal Medicine
PROC: 0DB68ZX Excision of Stomach, Via Natural or Artificial Opening Endoscopic, Diagnostic (ICD-10-PCS; 2017-11-05)
PROC: 0DB38ZX Excision of Lower Esophagus, Via Natural or Artificial Opening Endoscopic, Diagnostic (ICD-10-PCS; 2017-11-05)
PROC: 0W3P8ZZ Control Bleeding in Gastrointestinal Tract, Via Natural or Artificial Opening Endoscopic (ICD-10-PCS; principal; 2017-11-05 11:00)
DX: K92.2 Gastrointestinal hemorrhage, unspecified (principal); N18.6 End stage renal disease; J96.00 Acute respiratory failure, unspecified whether with hypoxia or hypercapnia; I13.2 Hypertensive heart and chronic kidney disease with heart failure and with stage 5 chronic kidney disease, or end stage renal disease; E11.22 Type 2 diabetes mellitus with diabetic chronic kidney disease; Z99.2 Dependence on renal dialysis; Z87.891 Personal history of nicotine dependence; E87.5 Hyperkalemia; Z95.1 Presence of aortocoronary bypass graft; K21.0 Gastro-esophageal reflux disease with esophagitis
CPT/HCPCS: 36415; 36430; 71045-TC; 71250-TC; 74176-TC; 76705; 80048; 80053; 82140; 82272; 82962; 83735; 84100; 85025; 85027; 85610; 86850; 86900; 86901; 86922; 87040; 93005; 93010; 93971-TC; 96372; 97161-GP; 99282-25; 99285-25; J0885; J2597; P9038; P9058

== ENCOUNTER 2017-11-15 19:42 | Emergency (ER) | payer OTHER ==
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
[2017-11-15 21:02] VITALS: BP 141/86; PULSE 76; TEMP 98.5; BMI 18.5
[2017-11-15] MEDS ORDERED: ACETAMINOPHEN 325 MG TABLET (FP) PO ONE (22:31)
[2017-11-15] MEDS ORDERED: PANTOPRAZOLE 40 MG TABLET (FP) PO ONE (22:32)
--- NOTE | 2017-11-18 12:39 | EKG ---
Test Reason : Blood Pressure : / mmHG Vent. Rate : 074 BPM Atrial Rate : 070 BPM P-R Int : 000 ms QRS Dur : 168 ms QT Int : 452 ms P-R-T Axes : 000 132 -26 degrees QTc Int : 501 ms Ventricular-paced rhythm Biventricular pacemaker detected ABNORMAL ECG WHEN COMPARED WITH ECG OF 04-NOV-2017 15:02, VENT. RATE HAS INCREASED BY 5 BPM Confirmed by SUSAN FLANNERY, ТАТЬЯНА ([id number]) on 11/18/2017 12:39:31 PM Referred By: Confirmed By:ТАТЬЯНА DAVIS MD
== END 2017-11-15 23:11 | disposition home or self-care (01) ==
LOC: JER 19:42
DX: R07.9 Chest pain, unspecified (principal); I25.10 Atherosclerotic heart disease of native coronary artery without angina pectoris; I13.2 Hypertensive heart and chronic kidney disease with heart failure and with stage 5 chronic kidney disease, or end stage renal disease; N18.6 End stage renal disease; I50.9 Heart failure, unspecified; Z99.2 Dependence on renal dialysis; Z95.1 Presence of aortocoronary bypass graft; Z95.5 Presence of coronary angioplasty implant and graft; I25.2 Old myocardial infarction; Z95.0 Presence of cardiac pacemaker; E11.9 Type 2 diabetes mellitus without complications; E78.00 Pure hypercholesterolemia, unspecified; Z86.73 Personal history of transient ischemic attack (TIA), and cerebral infarction without residual deficits; F41.9 Anxiety disorder, unspecified; N40.0 Benign prostatic hyperplasia without lower urinary tract symptoms
CPT/HCPCS: 93005; 93010; 99283-25

== ENCOUNTER 2017-12-01 19:06 | Emergency (ER) | payer OTHER ==
[2017-12-01 19:17] VITALS: BP 109/40; PULSE 61; TEMP 99.2; BMI 21.9
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
[2017-12-01] MEDS ORDERED: ACETAMINOPHEN 325 MG TABLET (FP) PO ONE (20:37)
[2017-12-01] MEDS ORDERED: ACETAMINOPHEN 325 MG TABLET (FP) ONE (20:47)
--- NOTE | 2017-12-01 20:59 | PDOC ---
*Physical Exam - Vital Signs Last Vital Signs Temp Pulse Resp BP Pulse Ox 99.2 F 61 14 109/40 100 12/01/17 19:10 12/01/17 19:10 12/01/17 19:10 12/01/17 19:10 12/01/17 19:10 ED Treatment Course - Medications Given in the ED: ED Medications Discontinued Medications Generic Name Dose Route Start Last Admin Trade Name Mary PRN Reason Stop Dose Admin Acetaminophen 650 mg 12/01/17 20:37 12/01/17 20:48 Tylenol - PO 12/01/17 20:38 650 mg ONCE ONE Administration Medical Decision Making - Medical Decision Making 12/01/17 20:58 agree with care from SHEYLA Fowler *DC/Admit/Observation/Transfer Diagnosis at time of Disposition: Toe pain, bilateral - Discharge Dispostion Disposition: HOME Condition at time of disposition: Stable - Referrals - Patient Instructions Printed Discharge Instructions: DI for Turf Toe Additional Instructions: Discharge Instructions: -Please follow up with your doctor -Return to the ER with any worsening or concerning symptoms - Post Discharge Activity
== END 2017-12-01 23:10 | disposition home or self-care (01) ==
LOC: JER 19:06
DX: M79.676 Pain in unspecified toe(s) (principal); M79.674 Pain in right toe(s); I25.10 Atherosclerotic heart disease of native coronary artery without angina pectoris; I13.2 Hypertensive heart and chronic kidney disease with heart failure and with stage 5 chronic kidney disease, or end stage renal disease; N18.6 End stage renal disease; I50.9 Heart failure, unspecified; Z99.2 Dependence on renal dialysis; Z95.1 Presence of aortocoronary bypass graft; Z95.5 Presence of coronary angioplasty implant and graft; E78.00 Pure hypercholesterolemia, unspecified; F41.9 Anxiety disorder, unspecified; N40.0 Benign prostatic hyperplasia without lower urinary tract symptoms; Z86.73 Personal history of transient ischemic attack (TIA), and cerebral infarction without residual deficits; Z95.0 Presence of cardiac pacemaker
CPT/HCPCS: 99281-25

== ENCOUNTER 2017-12-20 21:41 | Emergency (ER) | payer OTHER ==
[2017-12-20 22:27] VITALS: PULSE 60; BMI 23.8
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
[2017-12-21 07:40] VITALS: BP 170/74; TEMP 98.8
--- NOTE | 2017-12-21 16:02 | EKG ---
Test Reason : Blood Pressure : / mmHG Vent. Rate : 060 BPM Atrial Rate : 055 BPM P-R Int : 000 ms QRS Dur : 172 ms QT Int : 476 ms P-R-T Axes : 000 -48 -48 degrees QTc Int : 476 ms AV dual-paced rhythm Biventricular pacemaker detected ABNORMAL ECG WHEN COMPARED WITH ECG OF 15-NOV-2017 19:55, VENT. RATE HAS DECREASED BY 14 BPM Confirmed by PETRA ALAS MD ([id number]) on 12/21/2017 4:02:10 PM Referred By: Confirmed By:PETRA ALAS MD
== END 2017-12-21 07:48 | disposition home or self-care (01) ==
LOC: JER 21:41
DX: R07.89 Other chest pain (principal); I25.10 Atherosclerotic heart disease of native coronary artery without angina pectoris; I13.2 Hypertensive heart and chronic kidney disease with heart failure and with stage 5 chronic kidney disease, or end stage renal disease; N18.6 End stage renal disease; I50.9 Heart failure, unspecified; Z99.2 Dependence on renal dialysis; Z95.1 Presence of aortocoronary bypass graft; Z95.5 Presence of coronary angioplasty implant and graft; E11.9 Type 2 diabetes mellitus without complications; Z79.84 Long term (current) use of oral hypoglycemic drugs; Z87.891 Personal history of nicotine dependence; N40.0 Benign prostatic hyperplasia without lower urinary tract symptoms; F41.9 Anxiety disorder, unspecified; Z95.0 Presence of cardiac pacemaker; Z86.73 Personal history of transient ischemic attack (TIA), and cerebral infarction without residual deficits
CPT/HCPCS: 93005; 93010; 99282-25

== ENCOUNTER 2018-01-02 21:06 | Emergency (ER) | payer OTHER ==
[2018-01-02 21:10] VITALS: BP 125/54; PULSE 60; TEMP 98; BMI 23.8
[2018-01-02] MEDS ORDERED: ACETAMINOPHEN 325 MG TABLET (FP) PO ONE (23:18)
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
== END 2018-01-03 01:38 | disposition home or self-care (01) ==
LOC: JER 21:06
DX: M54.5 Low back pain (principal); I25.10 Atherosclerotic heart disease of native coronary artery without angina pectoris; I13.2 Hypertensive heart and chronic kidney disease with heart failure and with stage 5 chronic kidney disease, or end stage renal disease; N18.6 End stage renal disease; I50.9 Heart failure, unspecified; Z99.2 Dependence on renal dialysis; Z95.1 Presence of aortocoronary bypass graft; Z95.5 Presence of coronary angioplasty implant and graft; E11.9 Type 2 diabetes mellitus without complications; Z95.0 Presence of cardiac pacemaker; E78.00 Pure hypercholesterolemia, unspecified; F41.9 Anxiety disorder, unspecified; Z86.73 Personal history of transient ischemic attack (TIA), and cerebral infarction without residual deficits; Z87.19 Personal history of other diseases of the digestive system
CPT/HCPCS: 99282-25

== ENCOUNTER 2018-02-10 19:21 | Emergency (ER) | payer OTHER ==
[2018-02-10 19:50] VITALS: BP 101/45; PULSE 67; TEMP 98.8; BMI 25.6
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
[2018-02-10] MEDS ORDERED: HYDROmorphone HCL CARPU-JECT 1 MG/1 ML DISP.SYRIN IM ONE (20:52)
[2018-02-10] MEDS ORDERED: morphine CARPU-JECT 2 MG/1 ML DISP.SYRIN IM ONE (21:27)
[2018-02-10] MEDS ORDERED: MORPHINE SULFATE 10 MG/1 ML *VIAL ONE (21:49)
[2018-02-10 22:00] LABS: BASO % 0.7 % (0-2.0); EOS % 0.8 % (0-4.5); HEMATOCRIT 30.8 % (35.4-49); HEMOGLOBIN 10.4 GM/dL (11.7-16.9); LYMPH % 5.1 % (8-40); MCH 32.1 pg (25.7-33.7); MCHC 33.9 g/dl (32.0-35.9); MEAN CELL VOLUME 94.7 fl (80-96); NEUT % 85.4 % (42.8-82.8); PLATELET COUNT 142 K/MM3 (134-434); RBC 3.26 M/mm3 (4.00-5.60); RDW 17.7 % (11.9-15.9); WHITE BLOOD COUNT 9.9 K/mm3 (4.0-10.0)
[2018-02-10 22:31] LABS: ALBUMIN 2.7 g/dl (3.4-5.0); ANION GAP 6 (8-16); BILIRUBIN,TOTAL 0.8 mg/dL (0.2-1.0); BLOOD UREA NITROGEN 18 mg/dL (7-18); CALCIUM 7.8 mg/dL (8.5-10.1); CHLORIDE 98 mmol/L (98-107); CO2 29 mmol/L (21-32); CREATININE 4.2 mg/dL (0.7-1.3); GLUCOSE,RANDOM 58 mg/dL (74-106); SGOT/AST 45 U/L (15-37); SGPT/ALT 16 U/L (12-78); SODIUM 133 mmol/L (136-145); TOT PROT 6.3 g/dl (6.4-8.2)
[2018-02-10 22:34] LABS: ALK PHOS 135 U/L (45-117)
== END 2018-02-11 01:49 | disposition home or self-care (01) ==
LOC: SUPCPDRO 19:21 → JER 19:21
PROC: 3E033NZ Introduction of Analgesics, Hypnotics, Sedatives into Peripheral Vein, Percutaneous Approach (ICD-10-PCS; principal; 2018-02-10)
DX: M79.604 Pain in right leg (principal); M79.601 Pain in right arm; M79.602 Pain in left arm; M79.605 Pain in left leg; I10 Essential (primary) hypertension; E78.00 Pure hypercholesterolemia, unspecified; F41.9 Anxiety disorder, unspecified; Z99.2 Dependence on renal dialysis; Z85.9 Personal history of malignant neoplasm, unspecified; Z95.0 Presence of cardiac pacemaker; Z95.5 Presence of coronary angioplasty implant and graft
CPT/HCPCS: 36415; 80053; 82550; 82553; 82962; 84484; 85025; 99281-25

== ENCOUNTER 2018-02-11 04:58 | Emergency (ER) | payer OTHER ==
[2018-02-11 05:13] VITALS: BP 100/48; PULSE 65; TEMP 97.8; BMI 25.6
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
--- NOTE | 2018-02-11 05:48 | PDOC ---
Attending Attestation - Resident Resident Name: Lesley Weston - ED Attending Attestation I have performed the following: I have examined & evaluated the patient, The case was reviewed & discussed with the resident, I agree w/resident's findings & plan, Exceptions are as noted - HPI HPI: 02/11/18 19:57 Pt returns because he was having more pain at home - Physicial Exam PE: 02/11/18 19:57 *Physical Exam General Appearance: Yes: Appropriately Dressed. No: Apparent Distress, Intoxicated HEENT: positive: EOMI, JOSH, Normal ENT Inspection, Normal Voice, TMs Normal, Pharynx Normal. negative: Pale Conjunctivae, Photophobia, Scleral Icterus (R), Scleral Icterus (L) Neck: positive: Trachea midline, Normal Thyroid, Supple. negative: Tender, Rigid, Carotid bruit, Stridor, Lymphadenopathy (R), Lymphadenopathy (L), Thyromegaly Respiratory/Chest: positive: Lungs Clear, Normal Breath Sounds. negative: Chest Tender, Respiratory Distress, Accessory Muscle Use, Labored Respiration, RES, Crackles, Rales, Rhonchi, Stridor, Wheezing, Dullness Cardiovascular: positive: Regular Rhythm, Regular Rate, S1, S2. negative: Edema , JVD, Murmur, Bradycardia, Tachycardia Vascular Pulses: Dorsalis-Pedis (R): 2+, Doralis-Pedis (L): 2+ Gastrointestinal/Abdominal: positive: Normal Bowel Sounds, Flat, Soft. negative : Tender, Organomegaly, Pulsatile Mass, Increased Bowel Sounds, Decreased BS, Distended, Guarding, Rebound, Hernia, Hepatomegaly, Spleenomegaly Lymphatic: negative: Adenopathy, Tenderness Musculoskeletal: positive: Normal Inspection. negative: CVA Tenderness, Decreased Range of Motion Extremity: positive: Normal Capillary Refill, Normal Inspection, Normal Range of Motion, Pelvis Stable. negative: Tender, Pedal Edema, Swelling, Erythema Integumentary: positive: Normal Color, Dry, Warm. 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 negative: EOM Palsy, Facial Droop, Sensory Deficit - Medical Decision Making 02/11/18 19:57 Pt treated and release
== END 2018-02-11 07:12 | disposition home or self-care (01) ==
LOC: JER 04:58
DX: G89.29 Other chronic pain (principal); R53.1 Weakness; S00.512A Abrasion of oral cavity, initial encounter; W18.39XA Other fall on same level, initial encounter; Z91.81 History of falling; Y93.89 Activity, other specified; Y92.9 Unspecified place or not applicable; I10 Essential (primary) hypertension; E78.00 Pure hypercholesterolemia, unspecified; F41.9 Anxiety disorder, unspecified; Z99.2 Dependence on renal dialysis; Z87.891 Personal history of nicotine dependence; E11.9 Type 2 diabetes mellitus without complications
CPT/HCPCS: 99281-25